=== PATIENT | female | born 1960 | race Caucasian/White ===

== ENCOUNTER 2019-11-18 16:25 | Emergency (ER) | payer MEDICARE, SELFPAY | END 2019-11-18 22:26 | disposition home or self-care (01) | PROVIDERS: Family Provider Family Medicine | DX: L03.116 Cellulitis of left lower limb (principal); I87.2 Venous insufficiency (chronic) (peripheral); R60.0 Localized edema; I10 Essential (primary) hypertension; E11.9 Type 2 diabetes mellitus without complications | CPT/HCPCS: 36415; 71045; 80053; 81001; 83605; 84484 ×2; 85025; 87040 ×2; 87086; 93005; 93971; 96365; 96375 ×2; 99284; J1940; J2270; J3490; J7050 ==

== ENCOUNTER 2019-11-26 11:00 | Inpatient (IN) | payer MEDICARE, SELFPAY ==
[2019-11-26] VITALS (12 sets, daily range): BP systolic 136–209; BP diastolic 48–86; PULSE 71–81; RESP 16–22; TEMP 36.6–36.8; O2SAT 94–98; BMI 55.3
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
[2019-11-26 11:48] LABS: Glucose Point of Care 96 mg/dL (70-110)
--- NOTE | 2019-11-26 12:01 | XR_ITS ---
WS: [id number] CHEST 2 VIEWS HISTORY: SOB COMPARISON: 11/18/2019 Lungs: Mild interstitial thickening throughout both both lungs. There is a new area of very subtle in crease in opacification in the RIGHT upper lobe. Ill-defined opacification measures 4.6 x 2.0 cm. Cardiac size: Mildly enlarged cardiac silhouette. Mediastinum/Aorta: Mild atherosclerosis aorta. Bones: Posterior thoracolumbar fusion hardware. Increase in thoracic kyphosis. XR/XR chest 2V* [id number] IMPRESSION: 1. Increasing subtle opacification in the RIGHT upper lobe. Suspect pneumonia or pneumonitis. Recommend follow-up to resolution. 2. Mild interstitial edema.
[2019-11-26 12:16] LABS: Basophils % 0.4 %; Eosinophils # 0.2 10^3/uL (0.0-0.8); Eosinophils % 2.3 %; Hematocrit 37.3 % (37.0-47.0); Hemoglobin 11.4 g/dL (11.5-15.3); Lymphocytes # 1.6 10^3/uL (0.8-4.8); Lymphocytes % 17.8 %; Mean Corpuscular HGB Conc 30.6 g/dL (30.0-36.0); Mean Corpuscular Hemoglobin 25.7 pg (28.0-34.0); Mean Platelet Volume 10.2 fL (7.4-10.4); Monocytes # 0.4 10^3/uL (0.2-0.9); Monocytes % 4.4 %; Neutrophils # 6.8 10^3/uL (1.8-7.7); Neutrophils % 74.8 %; Nucleated Red Blood Cells % 0 %; Platelet Count 254 10^3/cmm (130-400); Red Blood Count 4.44 10^6/uL (4.1-5.3); Red Cell Distribution Width 15.1 % (12.1-15.1); White Blood Count 9.1 10^3/uL (4.0-10.0)
[2019-11-26 12:42] LABS: Add Urine Microscopic? YES; Bilirubin Urine Neg (NEGATIVE); Blood Urine 2+ (Negative); Glucose Urine UA 4+ (Normal); Ketones Urine Negative (Negative); Leukocyte Esterase Urine Negative (Negative); Nitrate Urine Positive (Negative); Protein Urine 3+ (Negative); Specific Gravity, Urine 1.015 (1.005-1.030); Urine Appearance Hazy (CLEAR); Urine Color Yellow (Yellow); Urobilinogen Urine Norm (Negative); pH Urine 5 (5-7)
[2019-11-26 12:45] LABS: Bacteria Urine 4+; RBC Urine 0-4 /hpf (0-2); Squamous Epithelial Cell Urine 0-4 (0-5)
[2019-11-26 12:46] LABS: Add Urine Culture? Yes
[2019-11-26 12:49] LABS: Alanine Aminotransferase 15 U/L (0-33); Albumin Level 4.5 g/dL (3.5-5.2); Alkaline Phosphatase 169 IU/L (35-105); Anion Gap 16.4 (5-19); Aspartate Amino Transferase 14 U/L (0-32); Blood Urea Nitrogen 43 mg/dL (8-23); Calcium 10.7 mg/Dl (8.8-10.2); Carbon Dioxide 23 mmol/L (22-29); Chloride 103 mmol/L (98-107); Globulin 3.6 g/dL (1.3-4.6); Glomerular Filtration Rate 23.9 mL/min (90-130); Glucose 92 mg/dL (74-106); NT Pro B Type Natriuretic Pept 421 pg/mL (0-125); Potassium 5.4 mmol/L (3.5-5.1); Sodium 137 mmol/L (136-145); Total Bilirubin 0.2 mg/dL (0.15-1.2); Total Protein 8.1 g/dL (6.6-8.7)
[2019-11-26 13:07] LABS: Glucose Point of Care 58 mg/dL (70-110)
[2019-11-26] MEDS: morphine 4 mg/mL SDV 1 mL IVP (14:50)
[2019-11-26] MEDS: cefTRIAXone 2,000 MG in sodium chloride 0.9% (plus) 50 ML 100 MG IV (14:55)
[2019-11-26 14:59] LABS: Glucose Point of Care 151 mg/dL (70-110)
[2019-11-26] MEDS: FUROsemide 10 mg/mL SDV 4mL 40 MG IVP (15:32)
[2019-11-26] MEDS: sodium polystyrene sulfonate 15 gm/60 mL Btl PO (15:32)
--- NOTE | 2019-11-26 15:53 | CTR_ITS ---
PROCEDURE INFORMATION: Exam: CT Head Without Contrast Exam date and time: 11/26/2019 4:07 PM Age: 59 years old Clinical indication: Pain; Headache; Additional info: Headache, R/O bleed TECHNIQUE: Imaging protocol: Computed tomography of the head without contrast. Total DLP: 882.35 mGy-cm Radiation optimization: All CT scans at this facility use at least one of these dose optimization techniques: automated exposure control; mA and/or kV adjustment per patient size (includes targeted exams where dose is matched to clinical indication); or iterative reconstruction. COMPARISON: CT head wo con* [id number] 12/14/2016 6:37 PM FINDINGS: Brain: Normal. No hemorrhage. Unremarkable white matter. No mass effect. Ventricles: Normal. No ventriculomegaly. Bones/joints: Unremarkable. No acute fracture. Sinuses: Visualized sinuses are unremarkable. No fluid levels. Mastoid air cells: Visualized mastoid air cells are well aerated. Soft tissues: Unremarkable. Other findings: Examination is limited secondary to motion artifact. CT/CT head wo con* [id number] IMPRESSION: No acute intracranial findings. Radiation Dose CTDIVOL = (mGy): DLP = 882.35 (mGy-cm)
--- NOTE | 2019-11-26 16:06 | ED_ITS ---
HPI - General Adult General: Chief complaint: General Medical Stated complaint: high bp/multiple complaints Time Seen by Provider: 11/26/19 11:27 Source: patient and family History of Present Illness: Location: head, chest and lower extremity Severity scale (1-10): 10 Quality: sharp and constant Relieving factors: none Exacerbating factors: none PFSH ED PFSH: Statuses (acute, chronic, etc) shown below reflect problem list status as previously entered and may not be historically accurate Medical History (Updated 11/26/19 @ 15:30 by Qiana Trivedi MD, [facility] [place] Cellulitis (Acute) Chronic back pain (Acute) Diabetes (Acute) HTN (hypertension) (Acute) Hyperglycemia (Acute) Obesity (Acute) Renal failure (Acute) Thyroid disease (Acute) Surgical History (Updated 11/26/19 @ 12:44 by Svetlana Hartman) History of adenoidectomy (Acute) History of appendectomy (Acute) History of back surgery (Acute) History of cholecystectomy (Acute) History of tonsillectomy (Acute) Social History Smoking and tobacco status: never smoked Course Vital Signs: Vital signs: Vital Signs Temperature 98 F 11/26/19 11:14 Pulse Rate 79 11/26/19 15:44 Respiratory Rate 18 11/26/19 15:44 Blood Pressure 136/72 11/26/19 15:44 Pulse Oximetry 96 11/26/19 15:44 MDM - General Adult Lab Data: Labs: Lab Results 11/26/19 11/26/19 11/26/19 Range/Units 11:44 11:51 11:51 WBC 9.1 (4.0-10.0) 10^3/ uL RBC 4.44 (4.1-5.3) 10^6/u L Hgb 11.4 L (11.5-15.3) g/dL Hct 37.3 (37.0-47.0) % MCV 84.0 (81-99) fL MCH 25.7 L (28.0-34.0) pg MCHC 30.6 (30.0-36.0) g/dL RDW 15.1 (12.1-15.1) % Plt Count 254 (130-400) 10^3/c mm MPV 10.2 (7.4-10.4) fL Neut % (Auto) 74.8 % Lymph % (Auto) 17.8 % [place] % (Auto) 4.4 % Eos % (Auto) 2.3 % Baso % (Auto) 0.4 % Neut # (Auto) 6.8 (1.8-7.7) 10^3/u L Lymph # (Auto) 1.6 (0.8-4.8) 10^3/u L [place] # (Auto) 0.4 (0.2-0.9) 10^3/u L Eos # (Auto) 0.2 (0.0-0.8) 10^3/u L Baso # (Auto) 0.0 (0.0-0.1) 10^3/u L Nucleated RBC % (a uto) 0 % Nucleated RBCs # 0.0 /100WBC Sodium 137 (136-145) mmol/L Potassium 5.4 H (3.5-5.1) mmol/L Chloride 103 (98-107) mmol/L Carbon Dioxide 23 (22-29) mmol/L Anion Gap 16.4 (5-19) BUN 43 H (8-23) mg/dL Creatinine 2.1 H (0.5-0.9) mg/dL GFR Calculation 23.9 L (90-130) mL/min Glucose 92 (74-106) mg/dL POC Glucose 96 (70-110) mg/dL Calcium 10.7 H (8.8-10.2) mg/Dl Total Bilirubin 0.2 (0.15-1.2) mg/dL AST 14 (0-32) U/L ALT 15 (0-33) U/L Alkaline Phosphata se 169 H (35-105) IU/L NT-Pro-B Natriuret Pep 421 H (0-125) pg/mL Total Protein 8.1 (6.6-8.7) g/dL Albumin 4.5 (3.5-5.2) g/dL Globulin 3.6 (1.3-4.6) g/dL Urine Color (Yellow) Urine Appearance (CLEAR) Urine pH (5-7) Ur Specific Gravit y (1.005-1.030) Urine Protein (Negative) Urine Glucose (UA) (Normal) Urine Ketones (Negative) Urine Occult Blood (Negative) Urine Nitrate (Negative) Urine Bilirubin (NEGATIVE) Urine Urobilinogen (Negative) mg/dL Ur Leukocyte Staci ase (Negative) Urine RBC (0-2) /hpf Urine WBC (0-5) /hpf Ur Squamous Epith Cells (0-5) Urine Bacteria (NONE) 11/26/19 11/26/19 11/26/19 Range/Units 12:24 13:03 14:27 WBC (4.0-10.0) 10^3/ uL RBC (4.1-5.3) 10^6/u L Hgb (11.5-15.3) g/dL Hct (37.0-47.0) % MCV (81-99) fL MCH (28.0-34.0) pg MCHC (30.0-36.0) g/dL RDW (12.1-15.1) % Plt Count (130-400) 10^3/c mm MPV (7.4-10.4) fL Neut % (Auto) % Lymph % (Auto) % [place] % (Auto) % Eos % (Auto) % Baso % (Auto) % Neut # (Auto) (1.8-7.7) 10^3/u L Lymph # (Auto) (0.8-4.8) 10^3/u L [place] # (Auto) (0.2-0.9) 10^3/u L Eos # (Auto) (0.0-0.8) 10^3/u L Baso # (Auto) (0.0-0.1) 10^3/u L Nucleated RBC % (a uto) % Nucleated RBCs # /100WBC Sodium (136-145) mmol/L Potassium (3.5-5.1) mmol/L Chloride (98-107) mmol/L Carbon Dioxide (22-29) mmol/L Anion Gap (5-19) BUN (8-23) mg/dL Creatinine (0.5-0.9) mg/dL GFR Calculation (90-130) mL/min Glucose (74-106) mg/dL POC Glucose 58 151 (70-110) mg/dL Calcium (8.8-10.2) mg/Dl Total Bilirubin (0.15-1.2) mg/dL AST (0-32) U/L ALT (0-33) U/L Alkaline Phosphata se (35-105) IU/L NT-Pro-B Natriuret Pep (0-125) pg/mL Total Protein (6.6-8.7) g/dL Albumin (3.5-5.2) g/dL Globulin (1.3-4.6) g/dL Urine Color Yellow (Yellow) Urine Appearance Hazy A (CLEAR) Urine pH 5 (5-7) Ur Specific Gravit y 1.015 (1.005-1.030) Urine Protein 3+ H (Negative) Urine Glucose (UA) 4+ H (Normal) Urine Ketones Negative (Negative) Urine Occult Blood 2+ H (Negative) Urine Nitrate Positive H (Negative) Urine Bilirubin Neg (NEGATIVE) Urine Urobilinogen Norm (Negative) mg/dL Ur Leukocyte Staci ase Negative (Negative) Urine RBC 0-4 H (0-2) /hpf Urine WBC 5-10 H (0-5) /hpf Ur Squamous Epith Cells 0-4 H (0-5) Urine Bacteria 4+ H (NONE) Discharge Plan Discharge Patient Disposition: Placed in Observation Admit Provider: Jovanni Ramires Clinical Impression: Acute UTI, Acute hyperkalemia Pneumonia Qualifiers: Laterality: right Lung location: upper lobe of lung Renal failure Qualifiers: Renal failure chronicity: chronic Chronic kidney disease stage: stage 3 (moderate) Qualified Code(s): N18.3 - Chronic kidney disease, stage 3 (moderate) Diabetes Qualifiers: Diabetes mellitus type: type 2 Diabetes mellitus intermediate insulin use: with intermediate use Diabetes mellitus complication status: with hyperglycemia Qualified Code(s): E11.65 - Type 2 diabetes mellitus with hyperglycemia Discharge Date/Time: 11/26/19 15:49 Coding Level of Care Code 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
[2019-11-26 16:07] LABS: Blood Urea Nitrogen 43 mg/dL (8-23); Calcium 10.1 mg/Dl (8.8-10.2); Carbon Dioxide 18 mmol/L (22-29); Chloride 104 mmol/L (98-107); Glomerular Filtration Rate 23.9 mL/min (90-130); Glucose 171 mg/dL (74-106); Sodium 136 mmol/L (136-145)
--- NOTE | 2019-11-26 16:57 | PC.PHAR ---
Vancomycin dosing per pharmacy 1500mg q24h Patient: Floor: Age: 59 yo Serum creatinine: 2.1 mg/dL Height: 63.8 Inches Weight (kg): 146 IBW (kg): 54.24 Dosing wt(kg): 90.9 Estimated Creatinine clearance (ml/min): 40.4 CRCL method: Cockcroft and Gault using adjusted body weight Drug selected: Vancomycin Loading dose (mg): Vd (liters): 63.6 (factor used: 0.7 L/kg) Cameron (hr-1): 0.038 Half life (hrs): 18.24 CLvanco= 2.417 L/hr Recommended dose: 1500 mg Interval: 24 hrs Infusion time (hrs): 1 Predicted peak (mcg/mL): 38.7 Predicted trough (mcg/mL): 16.15 Adjusted body weight was selected for vancomycin dosing. To switch back, select the total body weight option above. Recommendations: Give Vancomycin 1500 mg q 24 hrs with an expected Cpeak of 38.7 mcg/ml and an expected Ctrough of 16.15 mcg/ml
[2019-11-26] MEDS: enoxaparin 30 mg/0.3 mL Syringe SUBCUT (17:07)
[2019-11-26] MEDS: metoprolol tartrate 25 mg Tablet PO (17:07)
[2019-11-26] MEDS: FUROsemide 10 mg/mL SDV 2mL 20 MG IVP (17:07)
[2019-11-26] MEDS: metOLazone 5 MG Tablet PO (17:07)
[2019-11-26 17:10] LABS: Glucose Point of Care 246 mg/dL (70-110)
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
[2019-11-26] MEDS: dextrose 50% syringe 50 mL IVP (17:43)
--- NOTE | 2019-11-26 18:04 | CTR_ITS ---
PROCEDURE INFORMATION: Exam: CT Lumbar Spine Without Contrast Exam date and time: 11/26/2019 8:37 PM Age: 59 years old Clinical indication: Other: Possible infection; Prior surgery; Surgery date: 6+ months; Additional info: R/O infection TECHNIQUE: Imaging protocol: Computed tomography images of the lumbar spine without contrast. Total DLP: 2369.82 mGy-cm Radiation optimization: All CT scans at this facility use at least one of these dose optimization techniques: automated exposure control; mA and/or kV adjustment per patient size (includes targeted exams where dose is matched to clinical indication); or iterative reconstruction. COMPARISON: [place] [id number] 12/14/2016 6:47 PM FINDINGS: Vertebrae: Dextroscoliosis. Moderate to severe multilevel spine degenerative changes including degenerative disc disease, spondylosis and facet degenerative changes. Discs/Spinal canal/Neural foramina: Moderate L3-L4 central spinal stenosis. Mild L2-L3 central spinal stenosis. Soft tissues: Unremarkable. CT/CT lumbar spine wo con* [id number] IMPRESSION: No obvious abscess or osteomyelitis. Radiation Dose CTDIVOL = (mGy): DLP = 2369.82 (mGy-cm)
--- NOTE | 2019-11-26 18:04 | CTR_ITS ---
PROCEDURE INFORMATION: Exam: CT Thoracic Spine Without Contrast Exam date and time: 11/26/2019 8:37 PM Age: 59 years old Clinical indication: Other: Possible infection; Prior surgery; Surgery date: 6+ months; Additional info: R/O hardware infection/abscess TECHNIQUE: Imaging protocol: Computed tomography images of the thoracic spine without contrast. Total DLP: 2518.94 mGy-cm Radiation optimization: All CT scans at this facility use at least one of these dose optimization techniques: automated exposure control; mA and/or kV adjustment per patient size (includes targeted exams where dose is matched to clinical indication); or iterative reconstruction. COMPARISON: [place] Thor[place]* [id number] 12/14/2016 6:43 PM FINDINGS: Vertebrae: Stable postoperative changes over the thoracic spine with T8-T11 metallic fixation, bilateral posterior pedicular screws, vertical and horizontal stabilization bars, multilevel laminectomies and metallic artifact which obscures anatomic detail. Moderate thoracic spondylosis. The left T8 posterior pedicular screws is lateral to the pedicle and contiguous with the lateral margin of the vertebral body. Discs/Spinal canal/Neural foramina: No spinal stenosis. Soft tissues: No obvious soft tissue abscess or osteomyelitis. CT/CT thoracic spin wo con* [id number] IMPRESSION: 1. Stable postoperative changes over the thoracic spine with T8-T11 metallic fixation, bilateral posterior pedicular screws, vertical and horizontal stabilization bars, multilevel laminectomies and metallic artifact which obscures anatomic detail. 2. Moderate thoracic spondylosis. 3. The left T8 posterior pedicular screws is lateral to the pedicle and contiguous with the lateral margin of the vertebral body. 4. No obvious soft tissue abscess or osteomyelitis. Radiation Dose CTDIVOL = (mGy): DLP = 2518.94 (mGy-cm)
--- NOTE | 2019-11-26 20:01 | PC.NURSE ---
DR KOEHLER AT PT BEDSIDE. VERBAL ORDERS FOR 1GRAM OF TYLENOL Q8H AND TO CHANGE HYDROCODONE TO Q6H.
[2019-11-26] MEDS: ropinirole 1 mg Tablet 3 MG PO (20:14)
[2019-11-26] MEDS: acetaminophen 500 mg Tablet 1000 MG PO (20:14)
[2019-11-26] MEDS: oxybutynin 5 mg Tablet PO (20:15)
[2019-11-26 20:42] LABS: Influenza A by IFA Negative (Negative)
[2019-11-26 20:43] LABS: Influenza B by IFA Negative (Negative)
[2019-11-26 21:18] LABS: Glucose Point of Care 322 mg/dL (70-110)
[2019-11-26] MEDS: insulin glargine 100 units/1 mL 50 UNIT SUBCUT (21:20)
[2019-11-26] MEDS: piperacillin-tazobactam 3.375 GM in sodium chloride 0.9% (plus) 50 ML IV (21:45)
[2019-11-26] MEDS: HYDROcodone-acetaminophen 5-325 mg Tablet 1 TAB PO (21:47)
[2019-11-27] VITALS (12 sets, daily range): BP systolic 136–206; BP diastolic 65–81; PULSE 65–78; RESP 16–20; TEMP 36.1–36.7; O2SAT 92–99
[2019-11-27] MEDS: piperacillin-tazobactam 3.375 GM in sodium chloride 0.9% (plus) 50 ML IV ×2 (05:03→12:43)
[2019-11-27] MEDS: acetaminophen 500 mg Tablet 1000 MG PO (05:04)
[2019-11-27] MEDS: FUROsemide 10 mg/mL SDV 10mL 60 MG IVP ×2 (05:04→18:28)
[2019-11-27 05:58] LABS: Basophils % 0.4 %; Eosinophils # 0.2 10^3/uL (0.0-0.8); Eosinophils % 3.1 %; Lymphocytes # 1.6 10^3/uL (0.8-4.8); Lymphocytes % 22.5 %; Mean Corpuscular HGB Conc 30.3 g/dL (30.0-36.0); Mean Corpuscular Volume 85.7 fL (81-99); Mean Platelet Volume 10.4 fL (7.4-10.4); Monocytes # 0.5 10^3/uL (0.2-0.9); Neutrophils # 4.7 10^3/uL (1.8-7.7); Neutrophils % 66.7 %; Nucleated Red Blood Cells % 0 %; Platelet Count 211 10^3/cmm (130-400); Red Blood Count 3.85 10^6/uL (4.1-5.3); Red Cell Distribution Width 15.5 % (12.1-15.1)
[2019-11-27 06:16] LABS: Alanine Aminotransferase 20 U/L (0-33); Albumin Level 3.6 g/dL (3.5-5.2); Alkaline Phosphatase 157 IU/L (35-105); Anion Gap 16.2 (5-19); Aspartate Amino Transferase 25 U/L (0-32); Blood Urea Nitrogen 41 mg/dL (8-23); Carbon Dioxide 24 mmol/L (22-29); Chloride 103 mmol/L (98-107); Globulin 3.1 g/dL (1.3-4.6); Glomerular Filtration Rate 22.7 mL/min (90-130); Glucose 216 mg/dL (74-106); Magnesium 2.2 mg/dL (1.7-2.3); Phosphorus 4.9 mg/dL (2.5-4.5); Potassium 5.2 mmol/L (3.5-5.1); Sodium 138 mmol/L (136-145); Total Bilirubin 0.2 mg/dL (0.15-1.2); Total Protein 6.7 g/dL (6.6-8.7); Vancomycin Random 10.8 ug/mL (20.0-40.0)
[2019-11-27 06:21] LABS: Estmated Average Glucose 260; Hemoglobin A1C 10.7 % (4.0-6.0)
[2019-11-27 06:56] LABS: Glucose Point of Care 192 mg/dL (70-110)
--- NOTE | 2019-11-27 07:00 | USCV_ITS ---
Stan Berenice Age: 59 Gender: F : 1960 Exam Date: 11/27/2019 06:35 Ordering Phys: Jovanni Ramires MD Technologist: Ivy Bajwa Exam Location: [facility] [place] Indication: R/O DVT HISTORY: Leg pain. PROCEDURES: Examined bilaterally were the greater saphenous, common femoral, femoral, profunda, popliteal, posterior tibial veins, and peroneal trunk.. FINDINGS: All veins examined appear free of thrombus. No filling defects on color Doppler flow analysis. Vein flow and caliber vary with respiration. Increase in venous flow with augmentation. All veins appear compressible. CONCLUSIONS No evidence of right lower extremity DVT. No evidence of left lower extremity DVT. Ovi Ahn MD (Electronically Signed) Final Date: 27 November 2019 13:18 S
--- NOTE | 2019-11-27 07:00 | USCV_ITS ---
Berenice Pierce Age: 59 Gender: F : 1960 Exam Date: 11/27/2019 06:12 Ordering Phys: Jovanni Ramires MD Technologist: Ivy Bajwa Exam Location: [facility] [place] Indication: HX OF PHTN BP: 164 / 67 HR: 70 Rhythm: Sinus Technical Quality: Very technically difficult study MEASUREMENTS (Male / Female) Normal Values 2D ECHO LV Diastolic Diameter PLAX 4.4 cm 4.2 - 5.9 / 3.9 - 5.3 cm LV Systolic Diameter PLAX 2.8 cm IVS Diastolic Thickness 1.0 cm 0.6 - 1.0 / 0.6 - 0.9 cm IVS Systolic Thickness 1.8 cm LVPW Diastolic Thickness 1.1 cm 0.6 - 1.0 / 0.6 - 0.9 cm LVPW Systolic Thickness 1.7 cm LVOT Diameter 2.0 cm LV Ejection Fraction 2D Teich 66.6 % LA Diameter 4.7 cm Aorta at Sinotubular Diameter 2.8 cm M-MODE LV Diastolic Diameter MM 5.3 cm 4.2 - 5.9 / 3.9 - 5.3 cm LV Systolic Diameter MM 2.9 cm LV Ejection Fraction MM Teich 75.9 % IVS Diastolic Thickness MM 1.1 cm 0.6 - 1.0 / 0.6 - 0.9 cm IVS Systolic Thickness MM 1.9 cm LVPW Diastolic Thickness MM 1.4 cm 0.6 - 1.0 / 0.6 - 0.9 cm LVPW Systolic Thickness MM 1.9 cm Aortic Annulus Diameter 2.9 cm LA Ao Ratio MM 1.6 MV E Point Septal Separation 0.3 cm DOPPLER AV Peak Velocity 142.0 cm/s MV Area PHT 3.5 cm squared Mitral E to A Ratio 0.9 MV E' Velocity 8.0 cm/s Mitral E to MV E' Ratio 14.6 Mitral E to LV E' Lateral Ratio 13.2 Mitral E to LV E' Septal Ratio 16.8 TV Peak E Velocity 53.0 cm/s Right Atrial Pressure 3.0 mmHg PV Peak Velocity 63.0 cm/s RV Acceleration Time 0.1 s RV Ejection Time 0.2 s RV AcT/ET 0.5 FINDINGS Left Ventricle Left ventricular cavity not well visualized. Probably normal left ventricular systolic function. This study is inadequate for estimation of regional wall motion abnormality. Right Ventricle Right ventricle not well visualized. Probably normal right ventricular systolic function. Tricuspid valve regurgitant jet is inadequate for estimation of right ventricular systolic pressure. Right Atrium Right atrium not well visualized. Right atrial pressure estimated at 3 mmHg. Normal-sized inferior vena cava. Left Atrium Left atrium not well visualized. Mitral Valve Mitral valve not well visualized. Aortic Valve Aortic valve not well visualized. Probably tricuspid aortic valve. Tricuspid Valve Tricuspid valve not well visualized. Pulmonic Valve Pulmonic valve not well visualized. Trace pulmonary valve regurgitation. Pericardium No pericardial effusion. Aorta Normal-sized aortic root. CONCLUSIONS 1. This is a technically very difficult study. 2. Probably normal left ventricular systolic function. This study is inadequate for estimation of regional wall motion abnormality. 3. Repeat study with echo contrast is recommended. 4. Direct comparison to previous study dated 09/16/2017 is not possible given technical differences in the study. Genevieve Erazo MD (Electronically Signed) Final Date: 27 November 2019 16:18 S
[2019-11-27] MEDS: duloxetine 60 mg Capsule PO (09:16)
[2019-11-27] MEDS: oxybutynin 5 mg Tablet PO ×2 (09:16→15:52)
[2019-11-27] MEDS: ropinirole 1 mg Tablet 3 MG PO ×2 (09:16→15:49)
[2019-11-27] MEDS: levothyroxine 25 mcg Tablet PO (09:17)
[2019-11-27] MEDS: metoprolol tartrate 25 mg Tablet PO ×2 (09:17→18:28)
[2019-11-27] MEDS: metOLazone 5 MG Tablet PO (09:30)
[2019-11-27] MEDS: calcitriol 0.25 mcg Capsule PO (09:30)
[2019-11-27] MEDS: HYDROcodone-acetaminophen 5-325 mg Tablet 1 TAB PO ×2 (11:36→18:30)
[2019-11-27 12:01] LABS: Glucose Point of Care 241 mg/dL (70-110)
--- NOTE | 2019-11-27 14:41 | PC.CHAP ---
Pastoral Care Encounter/Spiritual Assessment Type of Contact [] Declined director clinical data visit [] Patient/Family/Request visit [] Outpatient visit [x] Follow-up visit [] Physician referral [] Code/Alert [] Routine visit [] Staff referral [] Actively dying [] Patient sleeping [] Family support [] [] Out of room [] Palliative care [] [x] Receiving care in room [] Pre-surgical visit [] Trauma [] Long length of stay [] ICU visit [] Other: Relational/Emotional Strength [] Patient feels connected with others/family/visitors/staff [] Distress [] Loneliness/isolation [] Abandonment Spirituality of Patient [] Person of Gwen [] Attends Jainism of their Gwen [] Believes in Prayer [] Reads Bible or Worship materials [] There are Spiritual issues to be addressed [place] [employer] Interventions [] Prayer [] Active listening [] Non-anxious presence [] Spiritual/emotional support [] Crisis/trauma care [] Spiritual counseling [] Bereavement support [] Provided bereavement packet [] Provided Bible/devotional materials [] Provided toy/stuffed animal, coloring book to patient or family member [] Completed spiritual assessment [] Provided Communion [] Anointing/[place] [] Salvation [] Other: Impact on Illness or Injury [] Angry [] Fearful [] Anxious [] Often cries [] Exhaustion [] Unable to work [] Unable to attend sikh [] Unable to walk/stand [] Unable to read [] Unable to drive [] Unable to eat/drink [] Unable to sleep [] Unable to be with family [] Other: Summary receiveing care in room follow up vannessa serrano Time spent with patient
[2019-11-27] MEDS: hyDRALAzine 25 mg Tablet PO (15:52)
[2019-11-27] MEDS: diphenhydrAMINE 50 mg Capsule PO (16:22)
[2019-11-27 16:50] LABS: Glucose Point of Care 187 mg/dL (70-110)
--- NOTE | 2019-11-27 16:51 | PC.PT ---
pt was evaluated this am and in terms of her functional abilities did not require further PT, but she was referred for treatment of her LE edema
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
[2019-11-27] MEDS: enoxaparin 30 mg/0.3 mL Syringe SUBCUT (18:42)
--- NOTE | 2019-11-27 19:11 | PC.NURSE ---
Report to [facility] Report called to KWAKU Harding at [facility].
--- NOTE | 2019-11-29 09:20 | PC.SOCIAL ---
Called with micro results on urine culture for ECOLI ESBL. Patient was transferred to [facility] in [place]. 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 Successfull transmission verification received.
== END 2019-11-27 20:19 | disposition short-term general hospital (02) | DRG 292 ==
LOC: ER 15:30 → MEDSURG 15:48
PROVIDERS: Admitting Provider Student in an Organized Health Care Education/Training Program; Emergency Provider Family Medicine; Family Provider Family Medicine; Visit Provider Student in an Organized Health Care Education/Training Program
DX: I13.0 Hypertensive heart and chronic kidney disease with heart failure and stage 1 through stage 4 chronic kidney disease, or unspecified chronic kidney disease (principal); I50.30 Unspecified diastolic (congestive) heart failure; N39.0 Urinary tract infection, site not specified; L03.90 Cellulitis, unspecified; R78.81 Bacteremia; Z68.43 Body mass index [BMI] 50.0-59.9, adult; J96.11 Chronic respiratory failure with hypoxia; N18.3 Chronic kidney disease, stage 3 (moderate); Z79.4 Long term (current) use of insulin; E11.22 Type 2 diabetes mellitus with diabetic chronic kidney disease; E11.65 Type 2 diabetes mellitus with hyperglycemia; E87.5 Hyperkalemia; G47.33 Obstructive sleep apnea (adult) (pediatric); E66.01 Morbid (severe) obesity due to excess calories; G89.29 Other chronic pain; M54.9 Dorsalgia, unspecified
CPT/HCPCS: 36415; 36416; 70450; 71046; 72128; 72131; 80048; 80053; 80202; 81003; 82962; 83036; 83605; 83735; 83880; 84100; 84145; 85025; 87040; 87077; 87086; 87186; 87641; 87804; 93306; 93970; 94640; 96372; 96374; 96375; 97161; 97530; 99282; G0378; J0696; J1650; J1815; J1940; J2270; J2543; J3370; J7050; J7611; Q0163

== ENCOUNTER 2020-04-17 09:09 | Outpatient (CLI) | payer MEDICARE, SELFPAY ==
--- NOTE | 2020-04-17 09:24 | XR_ITS ---
WS: [id number] CERVICAL SPINE TECHNIQUE: 3 views of the cervical spine CLINICAL INFORMATION: FALL INITIAL ENCOUNTER COMPARISON: None. FINDINGS: Straightening of the normal cervical lordosis. Anterior hypertrophic spurring at C5-C6. Normal C1-C2 articulation. Normal prevertebral soft tissues. Mild cervical curve convex left. Normal dens. XR/XR cervical spine 3V* [id number] IMPRESSION: Mild spondylitic changes. No acute fractures.
--- NOTE | 2020-04-17 09:24 | XR_ITS ---
WS: [id number] THORACIC SPINE TECHNIQUE: 3 views of the thoracic spine CLINICAL INFORMATION: FALL INITIAL ENCOUNTER COMPARISON: None. FINDINGS: Postoperative changes mid and lower thoracic spine with pedicle screw fixation and interconnecting ro ds. Hardware appears intact. Moderate thoracic kyphosis. Chronic anterior wedging in the mid and lowe r thoracic spine with ankylosis. No acute appearing thoracic compression fractures. XR/XR thoracic spine 3V* [id number] IMPRESSION: No acute appearing thoracic compression fractures
--- NOTE | 2020-04-17 09:24 | XR_ITS ---
WS: [id number] LUMBAR SPINE TECHNIQUE: 3 views of the lumbar spine CLINICAL INFORMATION: FALL INITIAL ENCOUNTER COMPARISON: April 03, 2018 FINDINGS: Five [id number] lumbar vertebral bodies. Mild lumbar curve convex right. Cholecystectomy clips. Prior postoperative changes pedicle screw fixation lower thoracic spine partially visualized. Slight retrolisthesis L2 on L3. Slight anterolisthesis L4 on L5 measuring 4.3 mm. Moderate to advanced facet arthropathy L5-S1. Ankylosis lower thoracic spine. Osteopenia. XR/XR lumbar spine 2-3V* [id number] IMPRESSION: 1. Stable grade 1 anterolisthesis L4 on L5. 2. Slight retrolisthesis L2 on L3. 3. No acute appearing compression fractures. 4. Prior postoperative changes lower thoracic spine.
== END 2020-04-17 09:10 | disposition home or self-care (01) ==
PROVIDERS: PCP Family Medicine; Visit Provider Family Medicine
DX: M54.9 Dorsalgia, unspecified (principal); W18.30XA Fall on same level, unspecified, initial encounter
CPT/HCPCS: 72040; 72072; 72100

== ENCOUNTER 2020-07-22 08:41 | Outpatient (CLI) | payer MEDICARE, SELFPAY | END 2020-07-22 08:42 | disposition home or self-care (01) | LOC: WOUND 08:42 | PROVIDERS: PCP Family Medicine; Visit Provider Emergency Medicine | DX: E11.621 Type 2 diabetes mellitus with foot ulcer (principal); L97.512 Non-pressure chronic ulcer of other part of right foot with fat layer exposed; Z89.421 Acquired absence of other right toe(s) | CPT/HCPCS: 11042; G0463; L3260 ==

== ENCOUNTER 2020-07-26 23:25 | Emergency (ER) | payer MEDICARE, SELFPAY ==
[2020-07-26 23:26] VITALS: BP 173/65; PULSE 77; RESP 18; TEMP 36.7; O2SAT 98; BMI 50.6
--- NOTE | 2020-07-26 23:38 | XRR_ITS ---
PROCEDURE INFORMATION: Exam: XR Cervical Spine, 2 or 3 Views Exam date and time: 07/27/2020 12:33 AM Age: 60 years old Clinical indication: Injury or trauma; Fall; Initial encounter; Abrasion TECHNIQUE: Imaging protocol: XR of the cervical spine, 2 or 3 views. COMPARISON: CR XR cervical spine 3V* [id number] 04/17/2020 9:31 AM FINDINGS: Limitations: Study is limited secondary to body habitus obscuring osseous detail from C4 caudally on the lateral view. Vertebrae: Normal. No acute fracture. Normal alignment. Soft tissues: Unremarkable. XR/XR cervical spine 3V* [id number] IMPRESSION: There are no acute osseous findings.
--- NOTE | 2020-07-26 23:38 | XRR_ITS ---
PROCEDURE INFORMATION: Exam: XR Chest, 1 View Exam date and time: 07/27/2020 12:05 AM Age: 60 years old Clinical indication: Injury or trauma; Fall; Initial encounter; Abrasion; Prior surgery; Surgery type: Dialysis port TECHNIQUE: Imaging protocol: XR of the chest Views: 1 view. COMPARISON: CR XR chest 2V* [id number] 11/26/2019 1:14 PM FINDINGS: Tubes, catheters and devices: A dialysis catheter is placed via the right internal jugular vein with its tip at the level of the right atrium. Pedicle screws and posterior rods are seen extending from T10 caudally. Lungs: There is indistinctness of the pulmonary vasculature. There are interstitial markings seen diffusely bilaterally , findings likely representing pulmonary edema. Patchy opacities are seen in the right upper lobe and left lower lobes likely representing atelectasis. Superimposed infiltrates and pneumonia cannot be entirely excluded. Pleural space: Unremarkable. No pleural effusion. No pneumothorax. Heart/Mediastinum: Unremarkable. No cardiomegaly. Bones/joints: Unremarkable. XR/XR chest 1V portable [id number] IMPRESSION: 1. Findings suggesting pulmonary edema. 2. The patchy opacities in the right upper lobe left lower lobes likely represents atelectasis. Superimposed infiltrates and pneumonia cannot be entirely excluded.
--- NOTE | 2020-07-26 23:38 | XRR_ITS ---
PROCEDURE INFORMATION: Exam: XR Left Hand Exam date and time: 07/27/2020 12:13 AM Age: 60 years old Clinical indication: Injury or trauma; Fall; Initial encounter; Laceration; Hand; Left TECHNIQUE: Imaging protocol: XR Left hand. Views: 3 or more views. COMPARISON: No relevant prior studies available. FINDINGS: Bones/joints: Normal. Soft tissues: Normal. XR/XR hand LT min 3V* [id number] IMPRESSION: No acute findings.
--- NOTE | 2020-07-26 23:38 | XRR_ITS ---
PROCEDURE INFORMATION: Exam: XR Left Forearm Exam date and time: 07/27/2020 12:13 AM Age: 60 years old Clinical indication: Injury or trauma; Fall; Initial encounter; Laceration; Arm, lower; Left; Prior surgery TECHNIQUE: Imaging protocol: XR Left forearm. Views: 2 views. COMPARISON: No relevant prior studies available. FINDINGS: Bones/joints: Normal. Soft tissues: Normal. Vasculature: Vascular clips are seen within the antecubital fossa. XR/XR forearm LT 2V [id number] IMPRESSION: 1. There are no acute osseous findings. 2. Vascular clips are seen within the cubital fossa.
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
[2020-07-26] MEDS: HYDROcodone-acetaminophen 7.5-325 mg Tablet 1 TAB PO (23:58)
--- NOTE | 2020-07-27 00:07 | XRR_ITS ---
PROCEDURE INFORMATION: Exam: XR Sternum Exam date and time: 07/27/2020 12:49 AM Age: 60 years old Clinical indication: Injury or trauma; Fall; Initial encounter; Prior surgery; Surgery date: 6+ months; Surgery type: Dialysis port TECHNIQUE: Imaging protocol: XR sternum. Views: 2 or more views. COMPARISON: CR XR chest 1V portable [id number] 07/27/2020 12:02 AM FINDINGS: Tubes, catheters and devices: A dialysis catheter is placed via the right internal jugular vein with its tip at the level of the right atrium. Bones/joints: Normal. Lungs: There is mild indistinctness of the pulmonary vasculature. There are increased interstitial markings seen bilaterally, findings that likely represent pulmonary edema. Superimposed interstitial pneumonitis cannot be entirely excluded. Soft tissues: Normal. Other findings: Pedicle screws and rods extend from T10 caudally. XR/XR sternum min 2V [id number] IMPRESSION: Indistinctness of the pulmonary vasculature and increased interstitial markings in the hemithoraces bilaterally, findings that likely represents pulmonary edema. Superimposed interstitial pneumonitis cannot be entirely excluded.
[2020-07-27 01:34] VITALS: BP 159/41; PULSE 80; RESP 18; O2SAT 2
== END 2020-07-27 02:01 | disposition home or self-care (01) ==
PROVIDERS: Emergency Provider Nurse Practitioner Family; PCP Family Medicine
DX: M54.2 Cervicalgia (principal); R07.9 Chest pain, unspecified; Z79.4 Long term (current) use of insulin; E11.9 Type 2 diabetes mellitus without complications; I11.0 Hypertensive heart disease with heart failure; I50.30 Unspecified diastolic (congestive) heart failure
CPT/HCPCS: 12345; 71045; 71120; 72040; 72072; 73090; 73130; 99281; 99283

== ENCOUNTER → 2020-07-29 08:44 | Outpatient (BNVA) | payer MEDICARE, SELFPAY | PROVIDERS: PCP Family Medicine; Referring Provider Family Medicine; Visit Provider Anesthesiology Pain Medicine | DX: G89.29 Other chronic pain (principal); M48.062 Spinal stenosis, lumbar region with neurogenic claudication; M51.36 Other intervertebral disc degeneration, lumbar region; M54.9 Dorsalgia, unspecified; M43.24 Fusion of spine, thoracic region; M54.2 Cervicalgia; M96.1 Postlaminectomy syndrome, not elsewhere classified; M48.10 Ankylosing hyperostosis [Forestier], site unspecified; R78.81 Bacteremia; N18.3 Chronic kidney disease, stage 3 (moderate); Z79.891 Long term (current) use of opiate analgesic | CPT/HCPCS: 99205 ==

== ENCOUNTER 2020-07-29 13:28 | Outpatient (CLI) | payer MEDICARE, SELFPAY | END 2020-07-29 13:29 | disposition home or self-care (01) | LOC: WOUND 13:29 | PROVIDERS: PCP Family Medicine; Visit Provider Emergency Medicine | DX: E11.621 Type 2 diabetes mellitus with foot ulcer (principal); L97.511 Non-pressure chronic ulcer of other part of right foot limited to breakdown of skin; L98.492 Non-pressure chronic ulcer of skin of other sites with fat layer exposed; Z89.421 Acquired absence of other right toe(s) | CPT/HCPCS: 11042 ==

== ENCOUNTER 2020-07-31 11:46 | Outpatient (CLI) | payer MEDICARE, SELFPAY ==
[2020-07-31 12:38] LABS: Basophils % 0.6 %; Eosinophils # 0.6 10^3/uL (0.0-0.8); Eosinophils % 8.4 %; Hemoglobin 9.4 g/dL (11.5-15.3); Lymphocytes # 1.4 10^3/uL (0.8-4.8); Lymphocytes % 21.4 %; Mean Corpuscular HGB Conc 29.4 g/dL (30.0-36.0); Mean Corpuscular Hemoglobin 26.6 pg (28.0-34.0); Mean Corpuscular Volume 90.4 fL (81-99); Mean Platelet Volume 10.5 fL (7.4-10.4); Monocytes # 0.4 10^3/uL (0.2-0.9); Monocytes % 5.8 %; Neutrophils # 4.23 10^3/uL (1.8-7.7); Neutrophils % 63.4 %; Nucleated Red Blood Cells % 0 %; Platelet Count 216 10^3/cmm (130-400); Red Blood Count 3.54 10^6/uL (4.1-5.3); Red Cell Distribution Width 18.6 % (12.1-15.1); White Blood Count 6.7 10^3/uL (4.0-10.0)
[2020-07-31 13:04] LABS: Alanine Aminotransferase 12 U/L (0-33); Albumin Level 3.9 g/dL (3.5-5.2); Alkaline Phosphatase 221 IU/L (35-105); Anion Gap 16.4 (5-19); Aspartate Amino Transferase 14 U/L (0-32); Blood Urea Nitrogen 47 mg/dL (8-23); Calcium 8.4 mg/dL (8.5-10.5); Carbon Dioxide 28 mmol/L (22-29); Chloride 99 mmol/L (98-107); Creatine Phosphokinase 68 U/L (26-192); Globulin 3.8 g/dL (1.3-4.6); Glomerular Filtration Rate 20.5 mL/min (90-130); Glucose 79 mg/dL (65-115); Osmolality Calculated 283 mOsm/kg (285-295); Potassium 5.4 mmol/L (3.5-5.1); Sodium 138 mmol/L (136-145); Total Bilirubin 0.3 mg/dL (0.15-1.2); Total Protein 7.7 g/dL (6.6-8.7)
== END 2020-07-31 11:47 | disposition home or self-care (01) ==
LOC: LAB 11:51
PROVIDERS: PCP Family Medicine; Visit Provider Internal Medicine Infectious Disease
DX: A49.02 Methicillin resistant Staphylococcus aureus infection, unspecified site (principal); E11.621 Type 2 diabetes mellitus with foot ulcer; Z79.899 Other long term (current) drug therapy
CPT/HCPCS: 80053; 82550; 85025; 86140

== ENCOUNTER 2020-08-05 08:35 | Outpatient (CLI) | payer MEDICARE, SELFPAY | END 2020-08-05 08:36 | disposition home or self-care (01) | LOC: WOUND 08:37 | PROVIDERS: PCP Family Medicine; Visit Provider Emergency Medicine | DX: E11.621 Type 2 diabetes mellitus with foot ulcer (principal); L97.512 Non-pressure chronic ulcer of other part of right foot with fat layer exposed; S41.112A Laceration without foreign body of left upper arm, initial encounter; X58.XXXA Exposure to other specified factors, initial encounter | CPT/HCPCS: 11042 ==

== ENCOUNTER 2020-08-12 08:04 | Outpatient (CLI) | payer MEDICARE, SELFPAY | END 2020-08-12 08:05 | disposition home or self-care (01) | LOC: WOUND 08:05 | PROVIDERS: PCP Family Medicine; Visit Provider Nurse Practitioner Family | DX: E11.621 Type 2 diabetes mellitus with foot ulcer (principal); L97.512 Non-pressure chronic ulcer of other part of right foot with fat layer exposed; Z89.421 Acquired absence of other right toe(s) | CPT/HCPCS: 11042 ==

== ENCOUNTER 2020-08-19 08:07 | Outpatient (CLI) | payer MEDICARE, SELFPAY | END 2020-08-19 08:08 | disposition home or self-care (01) | LOC: WOUND 08:08 | PROVIDERS: PCP Family Medicine; Visit Provider Nurse Practitioner Family | DX: E11.621 Type 2 diabetes mellitus with foot ulcer (principal); L97.512 Non-pressure chronic ulcer of other part of right foot with fat layer exposed; Z89.421 Acquired absence of other right toe(s) | CPT/HCPCS: 99214 ==

== ENCOUNTER 2020-08-26 10:20 | Outpatient (CLI) | payer MEDICARE, SELFPAY | END 2020-08-26 10:21 | disposition home or self-care (01) | LOC: WOUND 10:34 | PROVIDERS: PCP Family Medicine; Visit Provider Surgery | DX: E11.621 Type 2 diabetes mellitus with foot ulcer (principal); L97.512 Non-pressure chronic ulcer of other part of right foot with fat layer exposed; Z89.421 Acquired absence of other right toe(s) | CPT/HCPCS: G0463 ==

== ENCOUNTER 2020-08-26 21:10 | Emergency (ER) | payer MEDICARE, SELFPAY ==
[2020-08-26 21:10] VITALS: BP 196/96; PULSE 95; RESP 18; O2SAT 97
[2020-08-26 21:15] VITALS: BP 192/104; PULSE 89; RESP 18; TEMP 36.1; O2SAT 97; BMI 51.1
[2020-08-26] MEDS: LORazepam 2 mg/mL INJ 1 mL 1 MG IVP (21:15)
--- NOTE | 2020-08-26 21:28 | W.ED.HA ---
HPI - Headache General: Chief Complaint: Headache Stated Complaint: MIGRAINE X 4 DAYS Time Seen by Provider: 08/26/20 21:20 Source: patient Mode of arrival: wheelchair Limitations: no limitations History of Present Illness: HPI Narrative: Mrs. Pierce is a very nice 60-year-old female who comes in complaining of a migraine. She states this migraine is been present for the past 4 days. States is been constant but waxing and waning in intensity. She has had headaches last this long before and has had worse headaches in the past but she states she is tired of the headache and wants to come in to get help. She states she is out of her typical abortive migraine medication. She has photophobia and nausea but has not vomited. She denies any fevers or chills. She denies any neck pain or stiffness. She said her headache was gradual in onset over the course of several hours and not a sudden onset thunderclap type headache. The patient states is been sometime since she is had to come to the ER for headache relief but she has had to do this in the past. Other than her headache she denies any other complaints. Associated symptoms: Deny chest pain, confusion, diaphoresis, fever(s), lightheadedness, malaise, pre-syncope, rash, syncope or vomiting Review of Systems Const: Denies: fever(s), chills, body aches, fatigue, malaise or diaphoresis Eyes: Denies: change in vision, blurry vision, photophobia, eye discomfort, eye discharge, eye redness or yellow eyes ENMT: Denies: throat pain, odynophagia, hoarseness, swelling of lips/tongue, ear or mastoid pain, ear discharge, change in hearing or nasal discharge Card: Denies: chest pain, palpitations, irregular heart rhythm, edema, lightheadedness, syncope, pre-syncope, dyspnea on exertion or orthopnea Resp: Denies: dyspnea, productive cough, non-productive cough, wheezing, hemoptysis or chest congestion GI: Denies: abdominal pain, vomiting, hematemesis, coffee ground emesis, heartburn, diarrhea, constipation, GI cramping, hematochezia or melena : Denies: flank pain, dysuria, urinary frequency, urinary urgency or hematuria Musc: Denies: neck pain, back pain, extremity pain, extremity swelling, joint pain, joint swelling, joint redness, joint warmth or joint stiffness Skin/Breast: Denies: rash, pruritus, erythema, skin pain or skin tenderness Neuro: Denies: numbness in extremities, weakness in extremities, sensory changes, lack of coordination, difficulty walking, dizziness, vertigo, confusion, Slurred speech present or seizure-like activity Shawn/Lymph: Denies: easy bruising, easy bleeding, petechiae, purpura or enlarged lymph nodes All/Imm: Denies: urticaria, throat swelling, tongue swelling, facial swelling or acute wheezing PFSH ED PFSH: Medical History Cellulitis Chronic back pain Diabetes Diastolic heart failure H/O staphylococcal septicemia HTN (hypertension) Hyperglycemia Obesity Renal failure Staphylococcus epidermidis bacteremia Thyroid disease Surgical History History of adenoidectomy History of appendectomy History of back surgery History of cholecystectomy History of tonsillectomy Family History Other Cancer Social History Smoking and tobacco status: never smoked Alcohol intake: never Lives independently: Yes Household members: spouse Housing: House Marital status: Physical Exam Const: COMMON NORMALS: no acute distress, patient oriented x3, no limitations and alert GENERAL APPEARANCE: cooperative HENMT: COMMON NORMALS: normocephalic, atraumatic, external ears normal, EAC's normal and Normal external nose present HEAD & SCALP: normal to inspection, normocephalic and atraumatic FACE & SINUS: normal facial exam and face symmetric NOSE: Normal external nose present and Normal nares present EXTERNAL EAR: Yes external ears normal EXTERNAL AUDITORY CANAL: EAC's normal MOUTH: Normal oral and palatal mucosa present, lip normal and tongue normal Eye: COMMON NORMALS: Equal, round and reactive pupils present and conjunctivae normal GENERAL EYE: appearance normal, both eyes and all related structures ALIGNMENT: Yes alignment normal PERIORBITAL: periorbital findings normal EYELID: eyelids normal CONJUNCTIVA: Yes conjunctivae normal SCLERA: sclerae normal PUPIL: Yes Equal, round and reactive pupils present Neck/C-Spine: COMMON NORMALS: full ROM, no lymphadenopathy, supple, no meningeal signs and no JVD GENERAL: Yes normal visual inspection and Yes trachea midline Chest: COMMONS NORMALS: normal inspection of the chest and normal palpation of entire chest wall Resp: COMMON NORMALS: normal respiratory effort, No retractions, No use of accessory muscles and clear to auscultation bilaterally EFFORT & INSPECTION: Yes able to speak in complete sentences and Yes symmetric chest movement AUSCULTATION: clear to auscultation bilaterally, no crackles, no rales, no rhonchi and no wheezes Cardio: COMMON NORMALS: no JVD, regular rate, regular rhythm, S1 normal heart sound present and S2 normal heart sound present RATE: regular rate RHYTHM: regular rhythm HEART SOUNDS: S1 normal heart sound present, S2 normal heart sound present, no click, no gallops, no murmurs and no rubs GI: COMMON NORMALS: Soft to palpation and No hepatosplenomegaly present PALPATION: Yes Soft to palpation, No Tenderness to palpation present (GI), No Guarding due to palpation present (GI), No Rigid due to palpation, Yes No hepatosplenomegaly present, No Hernia present, No Palpable mass present and No Pulsatile mass present : COMMON NORMALS: Yes no CVA tenderness BLADDER/KIDNEY EXAM: Yes no CVA tenderness EXTERNAL FEMALE EXAM: No Hernia present Back/Pelvis: COMMON NORMALS: no CVA tenderness, thoracic and lumbar spine normal to inspection, no thoracic nor lumbar tenderness and thoraco-lumbar ROM normal Extremity: COMMON NORMALS: normal to inspection, full ROM, capillary refill normal, no joint enlargement, no clubbing, cyanosis or edema and no calf tenderness Neuro: [place] COMA SCALE: document GCS findings [place] coma scale eye opening: Spontaneous [place] coma scale verbal response: Orientated [place] coma scale motor response: Obey commands [place] coma scale total score: 15 COMMON NORMALS: patient oriented x3, CN's II-XII intact bilaterally, moves all extremities, no focal motor deficits and no sensory deficits noted SENSORIUM/ORIENTATION: Yes alert MENINGEAL SIGNS: Yes no meningeal signs SPEECH: speech normal Psych: COMMON NORMALS: mental status grossly normal, Normal thought process present, cooperative, normal affect, speech normal and activity/motor behavior normal SPEECH: Yes normal speech THOUGHT PROCESS: Normal thought process present Skin: COMMON NORMALS: no rashes or lesions noted, turgor normal, no jaundice, no petechiae and no mottling GENERAL SKIN EXAM: no rashes or lesions noted and turgor normal Course ED course: 2124 -patient is agreeable to an IV for medications to be given but declines to have a lab work or big work-up done. After much reluctance she does agree to a CT of the head. At this time the patient does not have high risk features to suggest subarachnoid hemorrhage or meningitis. Patient's neurologic exam is normal. I will go and proceed with my typical migraine cocktail. Vital Signs: Vital signs: Vital Signs Temperature 97.0 F L 08/26/20 21:15 Pulse Rate 84 08/27/20 00:10 Respiratory Rate 20 H 08/27/20 02:06 Blood Pressure 102/87 08/27/20 00:10 Pulse Oximetry 98 08/27/20 02:06 MDM - Headache MDM Narrative: Medical decision making narrative: 0114 -the patient comes in with a headache that started over the course of several hours at home 4 days ago. It has been constant and is wax and wane in intensity throughout this time. She is not had a fever and she has no stiff neck. Her headache was not a sudden onset thunderclap type headache. The patient did not respond very well to my typical migraine cocktail but eventually got relief with IV Depacon. She still declined lab work throughout her time here in the emergency department. The patient was always very nice and cordial but she states that she has lots of health problems and simply did not want to go through a lot of this extensive work-up. She simply wanted this headache to go away so she can go home and sleep. I discussed with her at length and with her and her at length about the possibilities of subarachnoid hemorrhage and meningitis being a cause for her headache. She does have increased risk as she is currently on antibiotics for treatment of what sounds to be bacteremia. She also states her headache was fairly abrupt in onset but progressed over the course of several hours. I have informed them that a CT scan at this time does not completely rule out bleeding around the brain and cannot rule out meningitis. The patient asked me to call her infectious disease doctor Dr. Crowe and I have tried to reach him but he is not available and no one for the infectious disease service takes call. After the patient and her have discussed at length all the options they choose to go home at this time rather than have this procedure performed or be admitted and want to call Dr. Crowe in the morning. The patient states if after talking with him he feels that this needs to be done she will return here immediately for this. Patient understands that she is leaving AGAINST MEDICAL ADVICE but I have been my best to be kind to her and inform her she is free to return at any time. She states she understands this and agrees to do so but at this time she is feeling a great deal improved with what I have given her and just ask for a little more relief before she goes home. The patient is laughing and joking and has discussed everything at length with her . She clearly has the capacity to make this decision and her does support her decision. The patient has been warned but she has been welcomed to return. Imaging Data^: CT Head: Radiologist's impression: [address] [address] [address] Scan Report Signed Patient: Daniel Pierce #: [id number] : 8Acct#:[id number] Age/Sex: 60 / FADM Date: 08/26/20 Loc: ERRoom/Bed: Attending Dr: Ordering Provider/Ordering MD: Cleopatra Young DO Date of Service: 08/26/20 Procedure(s): CT head wo con* [id number] Accession Number(s): [id number] Report Number: [id number] PROCEDURE INFORMATION: Exam: CT Head Without Contrast Exam date and time: 08/26/2020 10:47 PM Age: 60 years old Clinical indication: Pain; Headache; Patient HX: PT scanned x 2. PT would not stay still TECHNIQUE: Imaging protocol: Computed tomography of the head without contrast. Radiation optimization: All CT scans at this facility use at least one of these dose optimization techniques: automated exposure control; mA and/or kV adjustment per patient size (includes targeted exams where dose is matched to clinical indication); or iterative reconstruction. COMPARISON: CT head wo con* [id number] 11/26/2019 4:40 PM RADIATION DOSE METRICS: Total DLP (mGy-cm): 1855.97 FINDINGS: Brain: Normal. No hemorrhage. Unremarkable white matter. No mass effect. Cerebral ventricles: No ventriculomegaly. Bones/joints: Unremarkable. No acute fracture. Paranasal sinuses: Visualized sinuses are unremarkable. No fluid levels. Mastoid air cells: Visualized mastoid air cells are well aerated. Soft tissues: Unremarkable. CT/CT head wo con* [id number] IMPRESSION: Negative for intracranial hemorrhage or mass effect Radiation Dose CTDIVOL = (mGy): DLP = 1855.97 (mGy-cm) Dictated By:Velasquez Mendoza MD Signed By:Velasquez Mendoza MDSigned Date/Time:08/26/202329 DD/ 27 EKG Data^: EKG 1: Attestation: I personally reviewed and interpreted this EKG as follows: EKG interpretation date: 08/26/20 EKG interpretation time: 21:34 Interpretation: Normal sinus rhythm at 88 beats a minute, no blocks, normal intervals, no acute ST-T wave changes. Discharge Plan Discharge Patient Disposition: Home Clinical Impression: Migraine Qualifiers: Migraine type: without aura Status migrainosus presence: with status migrainosus Intractability: not intractable Qualified Code(s): G43.001 - Migraine without aura, not intractable, with status migrainosus Headache Qualifiers: Headache type: unspecified Headache chronicity pattern: acute headache Intractability: not intractable Qualified Code(s): R51.9 - Headache, unspecified Condition: Stable Prescriptions: No Action metronidazole 500 mg tablet 500 mg PO TID RF: 0 daptomycin 500 mg recon soln 700 mg IVP Q48H RF: 0 clonidine HCl 0.1 mg tablet 0.1 mg PO BID RF: 0 allopurinol 100 mg tablet 100 mg PO DAILY RF: 0 hydrocodone-acetaminophen 7.5-325 mg tablet 1 tab PO TID MDD 3 PRN (Reason: pain (scale score 7-10)) 30 Days Qty: 90 RF: 0 torsemide 20 mg Tablet 80 mg PO DAILY RF: 0 hydrocodone-acetaminophen [[place]] 5-325 mg Tablet 1 tab PO Q6H PRN (Reason: Pain) RF: 0 triamcinolone acetonide 0.1 % Cream 1 applic TOPICAL TID PRN (Reason: UNKNOWN) RF: 0 levothyroxine 25 mcg Tablet 25 mcg PO DAILY RF: 0 oxybutynin chloride 5 mg Tablet 5 mg PO TID RF: 0 insulin lispro [Humalog KwikPen Insulin] 100 unit/mL Insulin Pen See Rx Instructions .ROUTE .COMPLEX RF: 0 Levemir FlexTouch U-100 Insuln 100 unit/mL (3 mL) Insulin Pen See Rx Instructions .ROUTE .COMPLEX RF: 0 Toujeo SoloStar U-300 Insulin 300 unit/mL (1.5 mL) Insulin Pen See Rx Instructions .ROUTE .COMPLEX RF: 0 cephalexin [Keflex] 500 mg Capsule 500 mg PO BID RF: 0 calcitriol 0.25 mcg Capsule See Rx Instructions .ROUTE .COMPLEX RF: 0 ropinirole 3 mg Tablet 3 mg PO TID RF: 0 metoprolol tartrate 50 mg Tablet 50 mg PO BID PRN (Reason: UNKNOWN) RF: 0 magnesium oxide 500 mg Tablet 500 mg PO DAILY RF: 0 vitamin L78-nzzve acid 0.5-1 mg Tablet 1 tab PO DAILY RF: 0 Cymbalta 60 mg Capsule,Delayed Release(Dr/Ec) 60 mg PO DAILY PRN (Reason: UNKNOWN) RF: 0 hydrocodone-acetaminophen 7.5-325 mg tablet 1 tab PO Q6H PRN (Reason: pain) Qty: 10 RF: 0 Discharge Orders: Discharge Order (Routine); Ordered 08/27/20 Ordered By: Cleopatra Young Referrals: Lexis Ring MD [Primary Care Provider] - 1-3 days Discharge Diet: Usual diet Discharge Activity: Increase activity as tolerated Patient Instructions: Headache - Migraine (Adult), Acute Headache (ED) Activity Restrictions/Additional Instructions: You're leaving AGAINST MEDICAL ADVICE and are at risk for or severe permanent disability by doing so. You are more than welcome to return at any time for recheck and for further evaluation and care suture change you change your mind. I have recommended and offered further evaluation and treatment here to include blood work, lumbar puncture/spinal tap and other testing to rule out bleeding within your brain along with infection around your brain. As we have discussed either one of these problems can be life-threatening or permanently disabling so if you change your mind, your symptoms return, you develop new symptoms, or you simply change your mind you are more than welcome to return at any time for further evaluation and care. Be certain to follow-up with your doctor soon as possible including calling Dr. Crowe and ask if he would like you to have this procedure performed and if so you are welcome to return here for recheck. Again I truly hope nothing bad happens and I do not want anything bad to happen to you and I am more than willing to perform this procedure to rule out these life-threatening diagnoses so please return if you change your mind. God bless you. Stand Alone Forms: Against Medical Advice Coding Level of Care Code ED Dispatcher Chief [employer] for Sherg Fwd Exam Comprehensive
--- NOTE | 2020-08-26 21:38 | ECG_ITS ---
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 Measurements Intervals [place] Rate: 88 P: 61 [place]: 153 QRS: -12 QRSD: 88 T: 18 QT: 362 QTc: 439 Interpretive Statements SINUS RHYTHM POSSIBLE ANTERIOR MYOCARDIAL INFARCTION , PROBABLY OLD [30 ms Q WAVE IN V3/V4, OR R < 0.2 mV IN V4] Compared to ECG 11/18/2019 19:05:30 Myocardial infarct finding now present Electronically Signed On 08-27-2020 21:33:29 CDT by Christian Contreras M.D. [email or web address]/store/[id number] jesus alberto
[2020-08-26] MEDS: diphenhydrAMINE 50 mg/mL SDV 1mL IVP (21:48)
[2020-08-26 22:10] VITALS: BP 201/92; PULSE 102; RESP 20; O2SAT 98
[2020-08-26] MEDS: metoclopramide 5 mg/mL SDV 2 mL 10 MG IV (22:22)
[2020-08-26] MEDS: sodium chloride 0.9% 1,000 ML 999 ML IV (22:24)
--- NOTE | 2020-08-26 22:30 | CTR_ITS ---
PROCEDURE INFORMATION: Exam: CT Head Without Contrast Exam date and time: 08/26/2020 10:47 PM Age: 60 years old Clinical indication: Pain; Headache; Patient HX: PT scanned x 2. PT would not stay still TECHNIQUE: Imaging protocol: Computed tomography of the head without contrast. Radiation optimization: All CT scans at this facility use at least one of these dose optimization techniques: automated exposure control; mA and/or kV adjustment per patient size (includes targeted exams where dose is matched to clinical indication); or iterative reconstruction. COMPARISON: CT head wo con* [id number] 11/26/2019 4:40 PM RADIATION DOSE METRICS: Total DLP (mGy-cm): 1855.97 FINDINGS: Brain: Normal. No hemorrhage. Unremarkable white matter. No mass effect. Cerebral ventricles: No ventriculomegaly. Bones/joints: Unremarkable. No acute fracture. Paranasal sinuses: Visualized sinuses are unremarkable. No fluid levels. Mastoid air cells: Visualized mastoid air cells are well aerated. Soft tissues: Unremarkable. CT/CT head wo con* [id number] IMPRESSION: Negative for intracranial hemorrhage or mass effect Radiation Dose CTDIVOL = (mGy): DLP = 1855.97 (mGy-cm)
[2020-08-26] MEDS: promethazine 25 mg/mL SDV 1 mL IM (23:07)
[2020-08-26] MEDS: labetalol 5 mg/mL SDV 20mL 10 MG IVP (23:08)
[2020-08-26 23:10] VITALS: BP 185/95; PULSE 96; RESP 20; O2SAT 97
[2020-08-26] MEDS: valproic acid inj 500 MG in sodium chloride 0.9% 50 ML 55 MG IV (23:57)
[2020-08-27 00:10] VITALS: BP 102/87; PULSE 84; RESP 18; O2SAT 98
[2020-08-27 01:10] VITALS: BP 214/116; PULSE 94; RESP 18; O2SAT 99
[2020-08-27] MEDS: dexamethasone 10 mg/mL INJ IVP (02:02)
[2020-08-27 02:06] VITALS: RESP 20; O2SAT 98
[2020-08-27] MEDS: HYDROmorphone 1 mg/mL INJ 1 mL 0.5 MG IVP (02:06)
[2020-08-27] MEDS: valproic acid inj 500 MG in sodium chloride 0.9% 50 ML 55 MG IV (02:08)
--- NOTE | 2020-08-27 02:09 | PC.NURSE ---
meds delayed due to pt needing to use restroom x2
[2020-08-27 02:10] VITALS: BP 196/89; PULSE 76; RESP 18; O2SAT 96
--- NOTE | 2020-08-27 03:26 | PC.NURSE ---
Dr informed pt additional testing would be needed to further investigate cause of H/A. Options included were spinal tap. Risks and benefits explained. Pt states she wishes to speak to her prior to making decision. Pt's spouse informed by Dr options. Pt spouse requesting to speak with pt's infectious disease Dr prior to making decision regarding spinal tap. Pt and spouse decide to wait until they can speak with infectious disease dr and possibly return to the ED if specialist recommends. Orders obtained for final pain med infusion completed. Pt d/c without further difficulties or complaints
--- NOTE | 2020-08-27 04:16 | PC.NURSE ---
I agree with Medic assessment
== END 2020-08-27 04:20 | disposition home or self-care (01) ==
PROVIDERS: Emergency Provider Emergency Medicine; PCP Family Medicine
DX: G43.001 Migraine without aura, not intractable, with status migrainosus (principal); Z79.4 Long term (current) use of insulin; E11.9 Type 2 diabetes mellitus without complications; I11.0 Hypertensive heart disease with heart failure; I50.30 Unspecified diastolic (congestive) heart failure
CPT/HCPCS: 12345; 70450; 93005; 96365; 96366; 96372; 96375; 99282; 99284; 99291; J0131; J1100; J1170; J1200; J2060; J2550; J2765; J3490; J7030

== ENCOUNTER 2020-08-27 11:29 | Inpatient (IN) | payer MEDICARE, SELFPAY ==
[2020-08-27] VITALS (23 sets, daily range): BP systolic 152–203; BP diastolic 72–118; PULSE 66–202; RESP 13–29; TEMP 37–37.5; O2SAT 91–99; BMI 51.5
--- NOTE | 2020-08-27 11:43 | XR_ITS ---
WS: [id number] XR chest 1V portable [id number] REASON FOR EXAM: ams FINDINGS: There is cardiomegaly. The thoracic aorta is moderately tortuous and ectatic. No active pulmonary parenchymal or pleural disease is identified. No significant abnormality of the bony thorax. XR/XR chest 1V portable [id number] IMPRESSION: No acute abnormality of the chest.
--- NOTE | 2020-08-27 11:43 | CT_ITS ---
WS: [id number] CT HEAD NONCONTRAST HISTORY: ams TECHNIQUE: Contiguous axial imaging performed through the brain in 2.5 mm imaging. Bone and soft tiss ue windows. Sagittal and coronal reformats reviewed. All CT scans at [facility] use at le ast one of these dose optimization techniques: automated exposure control; mA and/or kV adjustment pe r patient size (includes targeted exams where dose is matched to clinical indication); or iterative r econstruction. DLP: 1578.08 mGy.cm COMPARISON: 08/26/2020 and 11/26/2019 No acute intracranial hemorrhage. No midline shift or mass effect. There are scattered areas of decreased attenuation which were present on 08/26/2020 but not evident on 11/26/2019. Bilateral symmetric posterior parieto-occipital areas of decreased attenuation. Additional area of low-attenuation in the anterior RIGHT frontal lobe and bilaterally in the posterior frontal lobes towards the vertex. Ventricles: Normal size with no hydrocephalus. No inferior displacement of cerebellar tonsils. Paranasal sinuses: As visualized are clear. Mastoid air cells: Well pneumatized. Calvarium and scalp: Skull is intact with no soft tissue edema or swelling. CT/CT head wo con* [id number] IMPRESSION: 1. No acute intracranial hemorrhage or midline shift. 2. Multifocal areas of white matter edema/decreased attenuation. Similar to but new since 11/26/2019. Correlate for possible PRES. Otherwise other re asons for diffuse white matter abnormality such as cerebritis or vasculitis manisha uld be considered. Notified Benny Iverson MD at 08/27/2020 1:39 PM.
--- NOTE | 2020-08-27 11:44 | ECG_ITS ---
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 Measurements Intervals [place] Rate: 104 P: 64 IN: 167 QRS: 40 QRSD: 95 T: 35 QT: 360 QTc: 475 Interpretive Statements SINUS TACHYCARDIA LOW QRS VOLTAGE IN PRECORDIAL LEADS [QRS DEFLECTION < 1.0 mV IN CHEST LEADS] POSSIBLE ANTERIOR MYOCARDIAL INFARCTION , PROBABLY OLD [30 ms Q WAVE IN V3/V4, OR R < 0.2 mV IN V4] ABNORMAL RHYTHM ECG Compared to ECG 08/26/2020 21:34:39 Low QRS voltage now present Sinus rhythm no longer present Myocardial infarct finding still present Electronically Signed On 08-27-2020 21:38:01 CDT by Christian Contreras M.D. [email or web address]/store/[id number]
--- NOTE | 2020-08-27 11:52 | W.ED.AMS ---
HPI - Altered Mental Status General: Chief Complaint: Altered Mental Status Stated Complaint: ALOC Time Seen by Provider: 08/27/20 11:37 Source: EMS Mode of arrival: EMS Limitations: altered mental status History of Present Illness: HPI narrative: 1-year-old female who is a history of dialysis was here yesterday for a migraine. She had a normal head CT yesterday. Patient is became confused at home and is back up. Due to this. Patient here is unable to answer any my questions and is quite confused. She will follow some commands. She appears to have peaked T waves on her rhythm strip monitor. Review of Systems General: Reports: ROS unobtainable due to mental status PFSH ED PFSH: Medical History (Updated 08/27/20 @ 14:49 by Benny Iverson MD) Cellulitis Chronic back pain Diabetes Diastolic heart failure H/O staphylococcal septicemia HTN (hypertension) Hyperglycemia Obesity Renal failure Staphylococcus epidermidis bacteremia Thyroid disease Surgical History History of adenoidectomy History of appendectomy History of back surgery History of cholecystectomy History of tonsillectomy Family History Other Cancer Social History Smoking and tobacco status: never smoked Alcohol intake: never Lives independently: Yes Household members: spouse Housing: House Marital status: Physical Exam Const: COMMON NORMALS: apparent distress, negative for patient oriented x3 and negative for healthy appearing GENERAL APPEARANCE: ill appearing HENMT: COMMON NORMALS: normocephalic and atraumatic HEAD & SCALP: normocephalic and atraumatic Eye: COMMON NORMALS: Equal, round and reactive pupils present and EOMs intact bilaterally PUPIL: Yes Equal, round and reactive pupils present Neck/C-Spine: COMMON NORMALS: full ROM and supple Chest: COMMONS NORMALS: normal inspection of the chest and normal palpation of entire chest wall Resp: COMMON NORMALS: normal respiratory effort, No retractions, No use of accessory muscles and clear to auscultation bilaterally AUSCULTATION: clear to auscultation bilaterally Cardio: COMMON NORMALS: regular rate, regular rhythm and No murmurs present (Cardio) RATE: regular rate RHYTHM: regular rhythm GI: COMMON NORMALS: Normal to inspection, nondistended, normoactive bowel sounds present, Soft to palpation, non-tender and no masses PALPATION: Yes Soft to palpation Extremity: COMMON NORMALS: normal to inspection and full ROM Neuro: COMMON NORMALS: moves all extremities; negative for patient oriented x3 Psych: COMMON NORMALS: Normal thought process present and cooperative; negative for mental status grossly normal THOUGHT PROCESS: Normal thought process present Skin: COMMON NORMALS: no rashes or lesions noted and no wounds GENERAL SKIN EXAM: no rashes or lesions noted Course Vital Signs: Vital signs: Vital Signs Temperature 98.6 F 08/27/20 11:30 Pulse Rate 149 H 08/27/20 13:55 Respiratory Rate 22 H 08/27/20 13:55 Blood Pressure 183/77 08/27/20 12:09 Pulse Oximetry 96 08/27/20 13:55 MDM - Altered Mental Status MDM Narrative: Medical decision making narrative: Patient presents here with end-stage renal disease is found to be hyperkalemic. Patient is also quite hypertensive and has altered mental status here today. CT shows findings of press likely from her hypertension. I spoke to the hospitalist and will admit here to the ICU. Lab Data: Labs: Lab Results 08/27/20 08/27/20 08/27/20 Range/Units 12:17 12:17 12:17 WBC 8.8 (4.0-10.0) 10^3/ uL RBC 4.45 (4.1-5.3) 10^6/u L Hgb 11.3 L (11.5-15.3) g/dL Hct 37.1 (37.0-47.0) % MCV 83.4 (81-99) fL MCH 25.4 L (28.0-34.0) pg MCHC 30.5 (30.0-36.0) g/dL RDW 16.4 H (12.1-15.1) % Plt Count 219 (130-400) 10^3/c mm MPV 10.3 (7.4-10.4) fL Neut % (Auto) 94.5 % Lymph % (Auto) 4.6 % [place] % (Auto) 0.6 % Eos % (Auto) 0.0 % Baso % (Auto) 0.1 % Neut # (Auto) 8.27 H (1.8-7.7) 10^3/u L Lymph # (Auto) 0.4 L (0.8-4.8) 10^3/u L [place] # (Auto) 0.1 L (0.2-0.9) 10^3/u L Eos # (Auto) 0.0 (0.0-0.8) 10^3/u L Baso # (Auto) 0.0 (0.0-0.1) 10^3/u L Nucleated RBC % (a uto) 0 % Nucleated RBCs # 0.0 /100WBC PT 13.90 (12.1-14.9) SECO NDS INR 1.06 (0.8-1.2) Specimen Type Sample Site ABG pH (7.35-7.45) ABG pCO2 (35-45) mmHg ABG pO2 (80.0-100.0) mmH g ABG HCO3 (22-26) mmol/L ABG Base Excess (-2.0-2.0) mmol/ L Seun Test Hematocrit (37-47) % O2 Delivery Device O2 Liters/Min % FiO2 % Senior Scientist ID Sodium 137 (136-145) mmol/L Potassium 6.1 H (3.5-5.1) mmol/L Chloride 102 (98-107) mmol/L Carbon Dioxide 19 L (22-29) mmol/L Anion Gap 22.1 H (5-19) BUN 40 H (8-23) mg/dL Creatinine 2.1 H (0.5-0.9) mg/dL GFR Calculation 23.9 L (90-130) mL/min Glucose 481 H (65-115) mg/dL Calculated Osmolal ity 315 H (285-295) mOsm/k g Calcium 9.1 (8.5-10.5) mg/dL Magnesium 2.0 (1.7-2.3) mg/dL Total Bilirubin 0.3 (0.15-1.2) mg/dL AST 16 (0-32) U/L ALT 14 (0-33) U/L Alkaline Phosphata se 153 H (35-105) IU/L Total Protein 7.4 (6.6-8.7) g/dL Albumin 3.9 (3.5-5.2) g/dL Globulin 3.5 (1.3-4.6) g/dL Urine Color (Yellow) Urine Appearance (CLEAR) Urine pH (5-7) Ur Specific Gravit y (1.005-1.030) Urine Protein (Negative) Urine Glucose (UA) (Normal) Urine Ketones (Negative) Urine Blood (Negative) Urine Nitrate (Negative) Urine Bilirubin (Negative) Urine Urobilinogen (Negative) mg/dL Ur Leukocyte Staci ase (Negative) Urine RBC (0-2) /hpf Urine WBC (0-5) /hpf Ur Squamous Epith Cells (0-5) /hpf Amorphous Sediment Urine Bacteria (NONE) /hpf Ethyl Alcohol < 10 (0-10) mg/dL 08/27/20 08/27/20 Range/Units 13:00 13:27 WBC (4.0-10.0) 10^3/ uL RBC (4.1-5.3) 10^6/u L Hgb (11.5-15.3) g/dL Hct (37.0-47.0) % MCV (81-99) fL MCH (28.0-34.0) pg MCHC (30.0-36.0) g/dL RDW (12.1-15.1) % Plt Count (130-400) 10^3/c mm MPV (7.4-10.4) fL Neut % (Auto) % Lymph % (Auto) % [place] % (Auto) % Eos % (Auto) % Baso % (Auto) % Neut # (Auto) (1.8-7.7) 10^3/u L Lymph # (Auto) (0.8-4.8) 10^3/u L [place] # (Auto) (0.2-0.9) 10^3/u L Eos # (Auto) (0.0-0.8) 10^3/u L Baso # (Auto) (0.0-0.1) 10^3/u L Nucleated RBC % (a uto) % Nucleated RBCs # /100WBC PT (12.1-14.9) SECO NDS INR (0.8-1.2) Specimen Type Arterial Sample Site Radial, right ABG pH 7.37 (7.35-7.45) ABG pCO2 36.3 (35-45) mmHg ABG pO2 87.2 (80.0-100.0) mmH g ABG HCO3 20.8 L (22-26) mmol/L ABG Base Excess -4.0 L (-2.0-2.0) mmol/ L Seun Test Pos Hematocrit 35.7 L (37-47) % O2 Delivery Device Nc O2 Liters/Min 2.0 % FiO2 28.0 % Senior Scientist ID Cak Sodium (136-145) mmol/L Potassium (3.5-5.1) mmol/L Chloride (98-107) mmol/L Carbon Dioxide (22-29) mmol/L Anion Gap (5-19) BUN (8-23) mg/dL Creatinine (0.5-0.9) mg/dL GFR Calculation (90-130) mL/min Glucose (65-115) mg/dL Calculated Osmolal ity (285-295) mOsm/k g Calcium (8.5-10.5) mg/dL Magnesium (1.7-2.3) mg/dL Total Bilirubin (0.15-1.2) mg/dL AST (0-32) U/L ALT (0-33) U/L Alkaline Phosphata se (35-105) IU/L Total Protein (6.6-8.7) g/dL Albumin (3.5-5.2) g/dL Globulin (1.3-4.6) g/dL Urine Color Yellow (Yellow) Urine Appearance Clear (CLEAR) Urine pH 7 (5-7) Ur Specific Gravit y 1.005 (1.005-1.030) Urine Protein 3+ H (Negative) Urine Glucose (UA) 4+ H (Normal) Urine Ketones Negative (Negative) Urine Blood 2+ H (Negative) Urine Nitrate Negative (Negative) Urine Bilirubin Neg (Negative) Urine Urobilinogen Neg (Negative) mg/dL Ur Leukocyte Staci ase Negative (Negative) Urine RBC 10-15 H (0-2) /hpf Urine WBC 0-4 H (0-5) /hpf Ur Squamous Epith Cells 10-15 H (0-5) /hpf Amorphous Sediment Not Reportable Urine Bacteria Trace (NONE) /hpf Ethyl Alcohol (0-10) mg/dL Imaging Data^: CXR: Radiologist's impression: [address] [place] [address] XRay Report Signed Patient: Berenice Pierce Unit #: [id number] : 1960 Age/Sex: 60 / F ADM Date: 08/27/20 Loc: ER Room/Bed: Attending Dr: Ordering Provider/Ordering MD: Benny Iverson MD Date of Service: 08/27/20 Procedure(s): XR chest 1V portable [id number] Accession Number(s): [id number] Report Number: [id number] WS: [id number] XR chest 1V portable [id number] REASON FOR EXAM: ams FINDINGS: There is cardiomegaly. The thoracic aorta is moderately tortuous and ectatic. No active pulmonary parenchymal or pleural disease is identified. No significant abnormality of the bony thorax. XR/XR chest 1V portable [id number] IMPRESSION: No acute abnormality of the chest. EKG Data^: EKG 1: Attestation: I personally reviewed and interpreted this EKG as follows: EKG interpretation date: 08/27/20 EKG interpretation time: 11:51 Interpretation: sinus tach hr [address] or t wave abnormalities qrs 95 qtc 421 Critical Care Time Critical Care Time: Critical Care Time: Yes Total Critical Care Time: 36 Attestation: This case had a high probability of a clinically significant, sudden, or life threatening deterioration of this patient's condition which required my full and direct attention, intervention and personal management. Discharge Plan Discharge Patient Disposition: Admitted As Inpatient Clinical Impression: Acute hyperkalemia, PRES (posterior reversible encephalopathy syndrome) Renal failure Qualifiers: Renal failure chronicity: chronic Altered mental status Qualifiers: Altered mental status type: unspecified Qualified Code(s): R41.82 - Altered mental status, unspecified Condition: Stable Referrals: Lexis Ring MD [Primary Care Provider] - Coding Level of Care Code ED Inspector Hairspring [employer]ing for Chg Fwd Exam Comprehensive
--- NOTE | 2020-08-27 12:16 | PC.NURSE ---
EKG done at 1151 and shown to ER doctor
[2020-08-27 12:35] LABS: Basophils % 0.1 %; Hematocrit 37.1 % (37.0-47.0); Hemoglobin 11.3 g/dL (11.5-15.3); Lymphocytes # 0.4 10^3/uL (0.8-4.8); Lymphocytes % 4.6 %; Mean Corpuscular HGB Conc 30.5 g/dL (30.0-36.0); Mean Corpuscular Hemoglobin 25.4 pg (28.0-34.0); Mean Corpuscular Volume 83.4 fL (81-99); Mean Platelet Volume 10.3 fL (7.4-10.4); Monocytes # 0.1 10^3/uL (0.2-0.9); Monocytes % 0.6 %; Neutrophils # 8.27 10^3/uL (1.8-7.7); Neutrophils % 94.5 %; Nucleated Red Blood Cells % 0 %; Platelet Count 219 10^3/cmm (130-400); Red Blood Count 4.45 10^6/uL (4.1-5.3); Red Cell Distribution Width 16.4 % (12.1-15.1); White Blood Count 8.8 10^3/uL (4.0-10.0)
[2020-08-27] MEDS: LORazepam 2 mg/mL INJ 1 mL 1 MG IVP (12:50)
[2020-08-27 13:02] LABS: Alanine Aminotransferase 14 U/L (0-33); Albumin Level 3.9 g/dL (3.5-5.2); Alcohol Level < 10 mg/dL (0-10); Alkaline Phosphatase 153 IU/L (35-105); Anion Gap 22.1 (5-19); Aspartate Amino Transferase 16 U/L (0-32); Blood Urea Nitrogen 40 mg/dL (8-23); Calcium 9.1 mg/dL (8.5-10.5); Carbon Dioxide 19 mmol/L (22-29); Chloride 102 mmol/L (98-107); Globulin 3.5 g/dL (1.3-4.6); Glomerular Filtration Rate 23.9 mL/min (90-130); Glucose 481 mg/dL (65-115); Osmolality Calculated 315 mOsm/kg (285-295); Potassium 6.1 mmol/L (3.5-5.1); Sodium 137 mmol/L (136-145); Total Bilirubin 0.3 mg/dL (0.15-1.2); Total Protein 7.4 g/dL (6.6-8.7)
[2020-08-27 13:05] LABS: INR 1.06 (0.8-1.2)
[2020-08-27 13:32] LABS: Specific Gravity, Urine 1.005 (1.005-1.030); Urine Appearance Clear (CLEAR); Urine Color Yellow (Yellow); pH Urine 7 (5-7)
[2020-08-27 13:33] LABS: Add Urine Microscopic? YES; Bilirubin Urine Neg (Negative); Blood Urine 2+ (Negative); Glucose Urine UA 4+ (Normal); Ketones Urine Negative (Negative); Leukocyte Esterase Urine Negative (Negative); Nitrate Urine Negative (Negative); Protein Urine 3+ (Negative); Urobilinogen Urine Neg (Negative)
[2020-08-27 13:38] LABS: ABG PCO2 36.3 mmHg (35-45); ABG PH Result 7.37 (7.35-7.45); Arterial Blood Gas Hematocrit 35.7 % (37-47); Blood Gas Allen Test Pos; Blood Gas Operator Identificat CAK; Blood Gas Sample Site Radial, right; Blood Gas Sample Type Arterial; HCO3 ABG 20.8 mmol/L (22-26); Oxygen Device NC; PO2 ABG 87.2 mmHg (80.0-100.0)
[2020-08-27] MEDS: calcium gluconate 0.1 gm/mL 10% SDV 10mL 1 GM IVP (13:52)
[2020-08-27] MEDS: insulin regular-human 100 units/1 mL 10 UNIT IVP (13:52)
[2020-08-27] MEDS: dextrose 50% syringe 50 mL IVP (13:52)
[2020-08-27] MEDS: LORazepam 2 mg/mL INJ 1 mL IVP (13:54)
[2020-08-27 14:13] LABS: WBC Urine 0-4 /hpf (0-5)
[2020-08-27 14:14] LABS: Add Urine Culture? No; Bacteria Urine TRACE /hpf
[2020-08-27] MEDS: labetalol 5 mg/mL SDV 20mL 20 MG IVP (15:03)
--- NOTE | 2020-08-27 16:05 | PC.NURSE ---
attempted to call pt report to ICU. Advised that ICU nurse will call back for pt report.
--- NOTE | 2020-08-27 16:31 | PC.NURSE ---
attempted to call pt report to ICU for the third time. ICU unable to take report at this time.
--- NOTE | 2020-08-27 16:34 | PM.CONSULT ---
Providers/Reason For Consult Consulting Physican/Specialty*: zheng turcios md/ telenephrology/ Reason for Consult*: renal failure Attending Physician: Dallas Hendrickson Primary Care Provider: Lexis Ring MD History of Present Illness History of Present Illness Berenice Pierce is a 60 year old female here w/ AMS and htn. she was in ER w/ migraines yesterday. she returns today w/ AMS. h/o htn, dm, thoracic spine injury w/ hardware and h/o staph epi bacteremia and ELISHA. I am unable to get an accurate history if she is ESRD. She is confused. per ER nurse, the kait said she has not had HD for days. H/o TARA, diastolic dysfunction, IDDM, and hypothyroidism. Review of Systems General: Reports: ROS unobtainable due to mental status Narrative: confused, headache, uncomfortable, sob, swollen Meds/Allergies Home Medications and Allergies Home Medications Medication Instructions Recorded Confirmed Last Taken Type calcitriol See Rx Instructions .ROUTE .COMPLEX 11/26/19 08/27/20 11/25/19 History cephalexin [Keflex] 500 mg PO BID 11/26/19 08/27/20 11/25/19 History duloxetine [Cymbalta] 60 mg PO DAILY 11/26/19 08/27/20 Unknown History insulin detemir U-100 [Levemir See Rx Instructions .ROUTE .COMPLEX 11/26/19 08/27/20 11/24/19 History FlexTouch U-100 Insuln] insulin glargine U-300 conc See Rx Instructions .ROUTE .COMPLEX 11/26/19 08/27/20 11/26/19 History [Toujeo SoloStar U-300 Insulin] insulin lispro [Humalog KwikPen See Rx Instructions .ROUTE .COMPLEX 11/26/19 08/27/20 Unknown History Insulin] levothyroxine 25 mcg PO DAILY 11/26/19 08/27/20 11/25/19 History magnesium oxide 500 mg PO DAILY 11/26/19 08/27/20 11/25/19 History metoprolol tartrate 50 mg PO BID 11/26/19 08/27/20 Unknown History oxybutynin chloride 5 mg PO TID 11/26/19 08/27/20 11/25/19 History ropinirole 3 mg PO BID 11/26/19 08/27/20 11/24/19 History torsemide 100 mg PO Q48H 11/26/19 08/27/20 11/25/19 History triamcinolone acetonide 1 applic TOPICAL TID PRN 11/26/19 08/27/20 Unknown History vitamin G13-jdkat acid 1 tab PO DAILY 11/26/19 08/27/20 11/25/19 History allopurinol 100 mg tablet 100 mg PO DAILY 07/29/20 08/27/20 Unknown History clonidine HCl 0.1 mg tablet 0.1 mg PO BEDTIME 07/29/20 08/27/20 Unknown History hydrocodone 7.5 mg-acetaminophen 1 tab PO TID PRN 30 Days #90 tab 07/29/20 08/27/20 Unknown Rx 325 mg tablet MDD 3 amoxicillin-pot clavulanate 1 tab PO BID 08/27/20 08/27/20 Unknown History sulfamethoxazole-trimethoprim 1 tab PO BID 08/27/20 08/27/20 Unknown History Allergies Allergy/AdvReac Type Severity Reaction Status Date / Time sulfamethoxazole Allergy Unknown Unknown Verified 07/29/20 08:58 [From Bactrim] trimethoprim [From Bactrim] Allergy Unknown Unknown Verified 07/29/20 08:58 levofloxacin [From Levaquin] Allergy ADR-Itching Verified 07/29/20 08:58 NSAIDS (Non-Steroidal Allergy Unknown Verified 07/29/20 08:58 Anti-Inflamma PFSH Acute PFSH: Medical History (Updated 08/27/20 @ 14:49 by Benny Iverson MD) Cellulitis Chronic back pain Diabetes Diastolic heart failure H/O staphylococcal septicemia HTN (hypertension) Hyperglycemia Obesity Renal failure Staphylococcus epidermidis bacteremia Thyroid disease Surgical History History of adenoidectomy History of appendectomy History of back surgery History of cholecystectomy History of tonsillectomy Family History Other Cancer Social History Smoking and tobacco status: never smoked Alcohol intake: never Lives independently: Yes Household members: spouse Housing: House Marital status: Vitals/I&O/Wt Last Vital Signs Temp 98.6 F 08/27/20 11:30 Pulse 102 H 08/27/20 15:37 Resp 20 H 08/27/20 15:37 BP 203/106 08/27/20 15:07 Pulse Ox 94 08/27/20 15:37 Weight last 48 hrs Weight 136.078 kg Physical Exam Narrative: EXAM NARRATIVE: morbidly obese, uncomfortable, sob, confused in bed heent- nc/at neck supple lungs crackles heart reg abd soft, nt, nd, +BS ext b/l leg edema. LUE AVF w/ thrill and bruit neuro- a,a, o x1. she moves. she is confused A&P Additional A&P Information 60 yr old female obesity, hypothyroidism, TARA, Diastolic dysfunction, CKD- Per ER she is ESRD- last dialysis unknown where and when- I called and no answer on his phone. 1. HTN- SOB- AMS- and Per HX ESRD- will dialyze now to RX hyperkalemia and lower BP- see if helps MS. 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 attempt to wean off esmolol drip 3. hgb okay 4. DM control 5. check tsh 6. check echo- eval for pericardial effusion -discussed w/ Dr. Ellison in detail Consult Attestations Medical Necessity Statement: AMS, renal insufficiency, HTN emergency Time Spent in Patient Care: Greater than 35 minutes Coding Level of Care Code Acute Superintendent Of Generation for Aimee Gonzalez
--- NOTE | 2020-08-27 16:44 | PC.NURSE ---
pt spouse reports that the patient has not had hemodialysis in the past few weeks . pt spouse reports that the pt recieves dialysis in [place]. pt has a left upper arm dialysis shunt.
--- NOTE | 2020-08-27 16:45 | PC.NURSE ---
pt spouse Félix Pierce phone number [phone]
--- NOTE | 2020-08-27 17:03 | PC.NURSE ---
attempted to call pt report to ICU. Advised that ICU is unable to take report at this time.
[2020-08-27] MEDS: heparin 5,000 unit/mL INJ 1 mL 5000 UNIT SUBCUT (17:18)
--- NOTE | 2020-08-27 17:26 | PC.NURSE ---
ICU unable to take report at this time.
--- NOTE | 2020-08-27 17:52 | P.HP_ITS ---
Providers/Chief Complaint Admitting Physician: Dallas Hendrickson Primary Care Provider: Lexis Ring MD Chief Complaint: ALOC History of Present Illness Berenice Pierce is a 60 year old lady with ESRD previously on hemodialysis, has had a dialysis port removed about a week ago, and had previously had left arm fistula created, but had to be readjusted due to it being too deep which was done probably about a month ago. Her dialysis port was removed 1-2 weeks ago as she was found not needing dialysis. She reportedly follows with Dr. Apodaca here, and Dr. Mitchell in [place]. She recently had a toe amputated due to osteomyelitis. She also is on chronic antibiotic suppression, although the does not remember which antibiotic, and follows with infectious disease Dr. 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 says that she has otherwise been doing pretty well up until about 4 days ago when she developed a headache which had persisted. He says that yesterday they had come in to the ER as she was slightly confused as well, although by the time of discharge it appears she had gotten much better. He states that for the most part her blood pressure has not been an issue recently, and that she was seen by her primary care provider in office recently as well. Today she was acting more confused, thinking she was having an appointment which she did not, and then while in the shower she told him she was not feeling well, slumped/slid down (not fell down) to the shower floor, and subsequently he witnessed that she was unresponsive and shaking for about 30 seconds. He says that subsequently she was not communicating with him for probably about 15-20 minutes until EMS arrived. In ER she is noted very confused, restless, shifting around in bed. states that she deals with chronic pain in her back, and that she not infrequently has been sleeping sitting up at the edge of the bed for a while now. also states she has history of obstructive sleep apnea, although has not been adherent with CPAP, which she currently is also missing some parts. He says they have tried a number of different masks and she does not like something over her face. He does feel that she breathes better when her head of bed is elevated somewhat, and feels that that is probably what she has been trying to do while being confused. In ER she is found rather hypertensive, initially 183/77, but as high as 203/106. Last night was as high as 214/116. He states her last hemodialysis was over 2 weeks ago, although does say that she has previously had episodes where she was off hemodialysis for a while, and then required restarting again due to again worsening renal function. He says she also had episodes of con fusion and appears were associated with her approaching need to restart dialysis. In ER CT of the head is found showing multifocal areas of white matter edema/decreased attenuation similar to 08/26/2020, but new since 11/26/2021. Images concerning for PRES or other white matter abnormality. Review of Systems Const: Denies: fever(s), chills, body aches or malaise Eyes: Denies: change in vision or eye redness ENMT: Denies: throat pain, oral sores or ear or mastoid pain Card: Denies: chest pain, edema, pre-syncope or dyspnea on exertion Resp: Denies: dyspnea, productive cough, change in phlegm color or hemoptysis GI: Denies: abdominal pain, nausea, vomiting, diarrhea, constipation, hematochezia or melena : Denies: flank pain, urinary frequency or hematuria Musc: Denies: back pain, joint swelling or joint redness Skin/Breast: Denies: rash, sores or new lesions Neuro: Reports: headache(s), confusion and seizure-like activity; Denies: numbness in extremities, weakness in extremities or dizziness Endo: Denies: polyuria or polydipsia Shwan/Lymph: Denies: easy bleeding or purpura All/Imm: Denies: urticaria, throat swelling or tongue swelling Medications/Allergies Home Medications Medication Instructions Recorded Confirmed Last Taken Type calcitriol See Rx Instructions .ROUTE .COMPLEX 11/26/19 08/27/20 11/25/19 History cephalexin [Keflex] 500 mg PO BID 11/26/19 08/27/20 11/25/19 History duloxetine [Cymbalta] 60 mg PO DAILY 11/26/19 08/27/20 Unknown History insulin detemir U-100 [Levemir See Rx Instructions .ROUTE .COMPLEX 11/26/19 08/27/20 11/24/19 History FlexTouch U-100 Insuln] insulin glargine U-300 conc See Rx Instructions .ROUTE .COMPLEX 11/26/19 08/27/20 11/26/19 History [Toujadao SoloStar U-300 Insulin] insulin lispro [Humalog KwikPen See Rx Instructions .ROUTE .COMPLEX 11/26/19 08/27/20 Unknown History Insulin] levothyroxine 25 mcg PO DAILY 11/26/19 08/27/20 11/25/19 History magnesium oxide 500 mg PO DAILY 11/26/19 08/27/20 11/25/19 History metoprolol tartrate 50 mg PO BID 11/26/19 08/27/20 Unknown History oxybutynin chloride 5 mg PO TID 11/26/19 08/27/20 11/25/19 History ropinirole 3 mg PO BID 11/26/19 08/27/20 11/24/19 History torsemide 100 mg PO Q48H 11/26/19 08/27/20 11/25/19 History triamcinolone acetonide 1 applic TOPICAL TID PRN 11/26/19 08/27/20 Unknown H istory vitamin A36-padrk acid 1 tab PO DAILY 11/26/19 08/27/20 11/25/19 History allopurinol 100 mg tablet 100 mg PO DAILY 07/29/20 08/27/20 Unknown History clonidine HCl 0.1 mg tablet 0.1 mg PO BEDTIME 07/29/20 08/27/20 Unknown History hydrocodone 7.5 mg-acetaminophen 1 tab PO TID PRN 30 Days #90 tab 07/29/20 08/27/20 Unknown Rx 325 mg tablet MDD 3 amoxicillin-pot clavulanate 1 tab PO BID 08/27/20 08/27/20 Unknown History sulfamethoxazole-trimethoprim 1 tab PO BID 08/27/20 08/27/20 Unknown History Allergies Allergy/AdvReac Type Severity Reaction Status Date / Time sulfamethoxazole Allergy Unknown Unknown Verified 07/29/20 08:58 [From Bactrim] trimethoprim [From Bactrim] Allergy Unknown Unknown Verified 07/29/20 08:58 levofloxacin [From Levaquin] Allergy ADR-Itching Verified 07/29/20 08:58 NSAIDS (Non-Steroidal Allergy Unknown Verified 07/29/20 08:58 Anti-Inflamma PFSH Acute 2 PFSH: Medical History (Updated 08/27/20 @ 18:45 by Dallas Hendrickson MD) Cellulitis Chronic antibiotic suppression Chronic back pain Diabetes Diastolic heart failure H/O staphylococcal septicemia HTN (hypertension) Hyperglycemia Obesity TARA (obstructive sleep apnea) Renal failure RLS (restless legs syndrome) Staphylococcus epidermidis bacteremia Thyroid disease Surgical History Amputated great toe Arteriovenous fistula H/O: hysterectomy History of adenoidectomy History of appendectomy History of back surgery History of cholecystectomy History of tonsillectomy Family History Other Cancer Social History Smoking and tobacco status: never smoked Alcohol intake: never Lives independently: Yes Household members: spouse Housing: House Marital status: Vitals/I&O/Wt Last Vital Signs Temp 98.6 F 08/27/20 11:30 Pulse 99 08/27/20 17:02 Resp 18 08/27/20 17:02 BP 175/86 08/27/20 17:02 Pulse Ox 95 08/27/20 17:02 Weight last 48 hrs Weight 136.078 kg Physical Exam Const: COMMON NORMALS: no acute distress EXAM LIMITATIONS: altered mental status GENERAL APPEARANCE: not cooperative NUTRITIONAL APPEARANCE: obese ORIENTATION/CONSCIOUSNESS: Yes awake and Yes confused HENMT: COMMON NORMALS: oropharynx normal Eye: COMMON NORMALS: Equal, round and reactive pupils present Neck/C-Spine: COMMON NORMALS: no JVD Resp: COMMON NORMALS: normal respiratory effort and clear to auscultation bilaterally AUSCULTATION: clear to auscultation bilaterally and bronchial breath sounds Cardio: COMMON NORMALS: no JVD, regular rhythm, S1 normal heart sound present, S2 normal heart sound present and No murmurs present (Cardio) RATE: tachycardic RHYTHM: regular rhythm HEART SOUNDS: S1 normal heart sound present and S2 normal heart sound present GI: COMMON NORMALS: Normal to inspection, nondistended, normoactive bowel sounds present, Soft to palpation and non-tender PALPATION: Yes Soft to palpation Extremity: COMMON NORMALS: no joint enlargement and no pedal edema NARRATIVE EXTREMITY EXAM: Great toe amputation. Left fourth digit ring removed and received by RN in ER. Neuro: COMMON NORMALS: moves all extremities SENSORIUM/ORIENTATION: Yes oriented to person, No oriented to place and No oriented to time SPEECH: speech normal (But very confused, only able to tell me her name, does not answer any other questions.) MOTOR EXAM: 5/5 motor strength present throughout Skin: COMMON NORMALS: no rashes or lesions noted Data : 08/27/20 12:17 08/27/20 12:17 A&P Assessment and plan (1) Acute encephalopathy: Return to ER today with confusion, has had persistent headache, at home just prior to EMS arrival had 30 seconds of shaking seizure-like activity, unresponsive, subsequently nonverbal at least 15-20 minutes until arrival of EMS. In ER very confused, restless, is only able to tell me her name. Is moving all extremities. Grossly exam does not appear to have focal normality. She is afebrile, however, as noted in ER notes from yesterday cannot exclude infectious causes. CT of the head appears to show diffuse white matter abnormality, as per discussion with neurology and her most consistent with PRES syndrome for which she has risk factors including ESRD, and has not underwent hemodialysis in at least 2 weeks (due to improvement in renal function, as has been the case several times in the past prescription with her ), as well as very elevated blood pressures, however, other conditions cannot be excluded past also per discussion of ER physician with her and her yesterday, including possible infectious encephalitis given her recent IV antibiotic course that she had completed per discussion with her (he does not remember the name of the antibiotic), as well as history of chronic antibiotic suppression due to history 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 Ordered esmolol drip with target blood pressure less than 140 systolic. Discussed with RN in ER. Hemodialysis. Per discussion with neurology at this time empiric coverage and LP (is going to be attempted by ER physician per discussion with neurology, although may be difficult due to body habitus, confusion, and the presence of prior lower thor acic hardware in the spine) for possible infection related encephalitis. Requested records from Dr. Crowe regarding what chronic antibiotic suppression she is on as does not remember. As per discussion with neurology empiric antiepileptic coverage. Plan for outpatient EEG and follow-up with neurology. ESR, CRP, BEREKET, ANCA One-to-one sitter. Ativan as needed if severe agitation. Seizure precautions. N.p.o. ICU Status: Acute (2) Hypertensive emergency: As above Status: Acute (3) Seizure: Secondary to likely PRES, hypertensive emergency, but additional work-up as above. Status: Acute (4) Renal failure: Chronic renal failure, ESRD, has been on and off hemodialysis depending on her renal function, and last hemodialysis is been over 2 weeks ago per . He does state that he has had previous episodes of confusion prior to needing to resume dialysis. Appreciate nephrology assessment and recommendations. Status: Acute Qualifiers: Renal failure chronicity: chronic (5) Acute hyperkalemia: As per nephrology recommendations. Hemodialysis. 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 Obtain records from Dr. Crowe's office with regards to which medication she is chronically taking. does not remember and she appears to have several different antibiotics listed including Augmentin, Keflex, Bactrim (although Bactrim also listed under allergy, per apparently was told that sometimes needs to take it ). Status: Acute Additional A&P Information Chronic alk phos elevation Dirty urine sample Recent osteomyelitis of great toe: Status post amputation, says recently completed course of IV antibiotic (about 2 weeks ago) Diabetes: is not sure how much insulin she is taking. For now we will start on sliding scale insulin. Medication dose will need to be obtained. She is for now n.p.o. TARA: She is supposed to be using nightly CPAP, but has not been using it at home, her CPAP is missing parts. says that she does not tolerate things over her face. Currently due to confusion, agitation hold off on CPAP. Resume once she is able to. Discussed with and encouraged him to get the home CPAP functioning again, as untreated TARA will predispose her again to episodes of hypertension which should be avoided in her case as much as possible. RLS: was not sure if maybe she might take more than usual medications for RLS as he says she gets very severe symptoms, although has never actually observed her taking extra medications. For now oral medications are on hold. Hypothyroidism Urinary incontinence CHF, history of diastolic HLD Obesity Chronic back pain: says not infrequently sits at the edge of the bed to sleep Other chronic medical conditions noted. Attestations Medical Necessity Statement*: Admission of over 2 midnights continued for assessment management of acute encephalopathy, hypertensive emergency. Critical Care Time: In addition to noncritical issues 65 minutes of critical care time spent on immediately life-threatening issues including severe acute encephalopathy, hypertensive emergency, PRES syndrome, renal failure with possible uremia, seizure, in a lady with multiple chronic comorbidities. Case discussed with ER physician, nephrology, neurologist, patient's , and nursing staff. Coding Level of Care Code Acute Electrical Cad Technician for [facility] Fwd Exam Comprehensive Diagnoses Acute encephalopathy G93.40 Hypertensive emergency I16.1 Seizure R56.9 Renal failure N19 Renal failure chronicity: chronic Acute hyperkalemia E87.5 Chronic antibiotic suppression Z79.2
--- NOTE | 2020-08-27 17:52 | PC.NURSE ---
ICU unable to take report at this time.
--- NOTE | 2020-08-27 18:28 | PC.NURSE ---
pt report called to Kodi RN in SBAR format.
[2020-08-27 19:20] LABS: Creatine Phosphokinase 152 U/L (26-192); Thyroid Stimulating Hormone 3.51 uIU/mL (0.27-4.20); Uric Acid 6.2 mg/dL (2.4-5.7)
--- NOTE | 2020-08-27 19:31 | W.ED.AMS ---
HPI - Altered Mental Status General: Chief Complaint: Altered Mental Status Stated Complaint: ALOC Time Seen by Provider: 08/27/20 11:37 Source: EMS Mode of arrival: EMS Limitations: altered mental status PFS ED PFSH: Medical History (Updated 08/27/20 @ 18:45 by Dallas Hendrickson MD) Cellulitis Chronic antibiotic suppression Chronic back pain Diabetes Diastolic heart failure H/O staphylococcal septicemia HTN (hypertension) Hyperglycemia Obesity TARA (obstructive sleep apnea) Renal failure RLS (restless legs syndrome) Staphylococcus epidermidis bacteremia Thyroid disease Surgical History Amputated great toe Arteriovenous fistula H/O: hysterectomy History of adenoidectomy History of appendectomy History of back surgery History of cholecystectomy History of tonsillectomy Family History Other Cancer Social History Smoking and tobacco status: never smoked Alcohol intake: never Lives independently: Yes Household members: spouse Housing: House Marital status: Procedures Lumbar Puncture Time Out Performed: Yes Patient Position: left lateral decubitus Skin Prep: Povidone-Iodine 1% Local Anesthetic: lidocaine 1% Amount of anesthesia used (mL): 10 Complications: unable to obtain CSF Procedural Sedation Presedation Evaluation: LP ASA Class: II Preparation: pulse oximeter Ketamine: IM Ketamine dose (mg): 500 IV Propofol dose (mg): 140 Patient Tolerated Procedure: well Complications: none Course Vital Signs: Vital signs: Vital Signs Temperature 98.6 F 08/27/20 11:30 Pulse Rate 99 08/27/20 17:02 Respiratory Rate 18 08/27/20 17:02 Blood Pressure 175/86 08/27/20 17:02 Pulse Oximetry 95 08/27/20 17:02 MDM - Altered Mental Status MDM Narrative: Medical decision making narrative: I attempted a lumbar puncture at the request of Dr. Hendrickson. I was unable to obtain her lumbar puncture due to her size. Patient was sedated with propofol she lost her IV so I did have her give her IM ketamine. She tolerated the sedation well. Lab Data: Labs: Lab Results 08/27/20 08/27/2008/27/20 Range/Units 12:17 12:17 12:17 WBC 8.8 (4.0-10.0) 10^3/ uL RBC 4.45 (4.1-5.3) 10^6/u L Hgb 11.3 L (11.5-15.3) g/dL Hct 37.1 (37.0-47.0) % MCV 83.4 (81-99) fL MCH 25.4 L (28.0-34.0) pg MCHC 30.5 (30.0-36.0) g/dL RDW 16.4 H (12.1-15.1) % Plt Count 219 (130-400) 10^3/c mm MPV 10.3 (7.4-10.4) fL Neut % (Auto) 94.5 % Lymph % (Auto) 4.6 % Hampton % (Auto) 0.6 % Eos % (Auto) 0.0 % Baso % (Auto) 0.1 % Neut # (Auto) 8.27 H (1.8-7.7) 10^3/u L Lymph # (Auto) 0.4 L (0.8-4.8) 10^3/u L Hampton # (Auto) 0.1 L (0.2-0.9) 10^3/u L Eos # (Auto) 0.0 (0.0-0.8) 10^3/u L Baso # (Auto) 0.0 (0.0-0.1) 10^3/u L Nucleated RBC % (a uto) 0 % Nucleated RBCs # 0.0 /100WBC PT 13.90 (12.1-14.9) SECO NDS INR 1.06 (0.8-1.2) Specimen Type Sample Site ABG pH (7.35-7.45) ABG pCO2 (35-45) mmHg ABG pO2 (80.0-100.0) mmH g ABG HCO3 (22-26) mmol/L ABG Base Excess (-2.0-2.0) mmol/ L Seun Test Hematocrit (37-47) % O2 Delivery Device O2 Liters/Min % FiO2 % Software Development Advisor ID Sodium 137 (136-145) mmol/L Potassium 6.1 H (3.5-5.1) mmol/L Chloride 102 (98-107) mmol/L Carbon Dioxide 19 L (22-29) mmol/L Anion Gap 22.1 H (5-19) BUN 40 H (8-23) mg/dL Creatinine 2.1 H (0.5-0.9) mg/dL GFR Calculation 23.9 L (90-130) mL/min Glucose 481 H (65-115) mg/dL Calculated Osmolal ity 315 H (285-295) mOsm/k g Calcium 9.1 (8.5-10.5) mg/dL Magnesium 2.0 (1.7-2.3) mg/dL Total Bilirubin 0.3 (0.15-1.2) mg/dL AST 16 (0-32) U/L ALT 14 (0-33) U/L Alkaline Phosphata se 153 H (35-105) IU/L Creatine Kinase (26-192) U/L Total Protein 7.4 (6.6-8.7) g/dL Albumin 3.9 (3.5-5.2) g/dL Globulin 3.5 (1.3-4.6) g/dL TSH (0.27-4.20) uIU/ mL Urine Color (Yellow) Urine Appearance (CLEAR) Urine pH (5-7) Ur Specific Gravit y (1.005-1.030) Urine Protein (Negative) Urine Glucose (UA) (Normal) Urine Ketones (Negative) Urine Blood (Negative) Urine Nitrate (Negative) Urine Bilirubin (Negative) Urine Urobilinogen (Negative) mg/dL Ur Leukocyte Staci ase (Negative) Urine RBC (0-2) /hpf Urine WBC (0-5) /hpf Ur Squamous Epith Cells (0-5) /hpf Amorphous Sediment Urine Bacteria (NONE) /hpf Ethyl Alcohol < 10 (0-10) mg/dL 08/27/20 08/27/20 08/27/20 Range/Units 12:17 13:00 13:27 WBC (4.0-10.0) 10^3/ uL RBC (4.1-5.3) 10^6/u L Hgb (11.5-15.3) g/dL Hct (37.0-47.0) % MCV (81-99) fL MCH (28.0-34.0) pg MCHC (30.0-36.0) g/dL RDW (12.1-15.1) % Plt Count (130-400) 10^3/c mm MPV (7.4-10.4) fL Neut % (Auto) % Lymph % (Auto) % Hampton % (Auto) % Eos % (Auto) % Baso % (Auto) % Neut # (Auto) (1.8-7.7) 10^3/u L Lymph # (Auto) (0.8-4.8) 10^3/u L Hampton # (Auto) (0.2-0.9) 10^3/u L Eos # (Auto) (0.0-0.8) 10^3/u L Baso # (Auto) (0.0-0.1) 10^3/u L Nucleated RBC % (a uto) % Nucleated RBCs # /100WBC PT (12.1-14.9) SECO NDS INR (0.8-1.2) Specimen Type Arterial Sample Site Radial, right ABG pH 7.37 (7.35-7.45) ABG pCO2 36.3 (35-45) mmHg ABG pO2 87.2 (80.0-100.0) mmH g ABG HCO3 20.8 L (22-26) mmol/L ABG Base Excess -4.0 L (-2.0-2.0) mmol/ L Seun Test Pos Hematocrit 35.7 L (37-47) % O2 Delivery Device Nc O2 Liters/Min 2.0 % FiO2 28.0 % Software Development Advisor ID Cak Sodium (136-145) mmol/L Potassium (3.5-5.1) mmol/L Chloride (98-107) mmol/L Carbon Dioxide (22-29) mmol/L Anion Gap (5-19) BUN (8-23) mg/dL Creatinine (0.5-0.9) mg/dL GFR Calculation (90-130) mL/min Glucose (65-115) mg/dL Calculated Osmolal ity (285-295) mOsm/k g Calcium (8.5-10.5) mg/dL Magnesium (1.7-2.3) mg/dL Total Bilirubin (0.15-1.2) mg/dL AST (0-32) U/L ALT (0-33) U/L Alkaline Phosphata se (35-105) IU/L Creatine Kinase 152 (26-192) U/L Total Protein (6.6-8.7) g/dL Albumin (3.5-5.2) g/dL Globulin (1.3-4.6) g/dL TSH 3.51 (0.27-4.20) uIU/ mL Urine Color Yellow (Yellow) Urine Appearance Clear (CLEAR) Urine pH 7 (5-7) Ur Specific Gravit y 1.005 (1.005-1.030) Urine Protein 3+ H (Negative) Urine Glucose (UA) 4+ H (Normal) Urine Ketones Negative (Negative) Urine Blood 2+ H (Negative) Urine Nitrate Negative (Negative) Urine Bilirubin Neg (Negative) Urine Urobilinogen Neg (Negative) mg/dL Ur Leukocyte Staci ase Negative (Negative) Urine RBC 10-15 H (0-2) /hpf Urine WBC 0-4 H (0-5) /hpf Ur Squamous Epith Cells 10-15 H (0-5) /hpf Amorphous Sediment Not Reportable Urine Bacteria Trace (NONE) /hpf Ethyl Alcohol (0-10) mg/dL Discharge Plan Discharge Patient Disposition: Admitted As Inpatient Admit Provider: Dallas Hendrickson Clinical Impression: Acute hyperkalemia, PRES (posterior reversible encephalopathy syndrome) Renal failure Qualifiers: Renal failure chronicity: chronic Altered mental status Qualifiers: Altered mental status type: unspecified Qualified Code(s): R41.82 - Altered mental status, unspecified Condition: Stable Referrals: Lexis Ring MD [Primary Care Provider] - Coding Level of Care Code ED Integration Software Developer for [facility]
[2020-08-27] MEDS: propofol 10 mg/mL SDV 20 mL 100 MG IVP (19:51)
[2020-08-27 19:56] LABS: Hepatitis B Surface AB 3.5 (0-8.5); Hepatitis B Surface Antigen Non-Reactive (Nonreactive); Hepatitis C Virus Antibody Non-Reactive (Nonreactive)
--- NOTE | 2020-08-27 20:10 | PC.NURSE ---
Admit Note Arrived to ICU via ER stephen at this time. Pt is sedated and occasionally yells out. Nurse reports patient was very confused and restless pre-sedation. Arrived on 2L NC. Breathing is even and non-labored. Pupils are equal dilated and slugglish, size 6. Seizure and fall precautions in place. Lung sounds diminished and clear. 1+pitting edema to BLE. Right 4th toe recently amputated. Dressing was taken off for assessment. Well approximated with small amount of yellow drainage. Left great toe has small blood blister that is intact. 1:1 sitter at bedside. Dialysis nurse at bedside, obtained consent via [facility] over the phone for dialysis.
--- NOTE | 2020-08-27 20:16 | PC.NURSE ---
Obtained informed consent for lumbar puncture via phone from pt spouse Félix Pierce. lumbar puncture preformed by Dr. Christianson. procedure was unsuccessful.
--- NOTE | 2020-08-27 20:30 | PC.NURSE ---
Dialysis Bedside dialysis now in progress.
[2020-08-27 20:47] LABS: Erythrocyte Sedimentation Rate 52 mm/hr (0-15)
--- NOTE | 2020-08-27 21:01 | PC.NURSE ---
Mental Status Pt now opens eye spontaneously. Becoming more verbal and tearful. Remains confused and agitated. Pt repetitively saying where am i I don't wanna after multiple attempts to reorient and redirect pt. Pt does follow commands with hand ticket manager. Reduced environmental stimuli. 1:1 sitter at bedside. Dialysis in progress.
[2020-08-27] MEDS: esmolol drip 2,500 MG/250 ML PREMIX 40.8 MG IV (21:17)
[2020-08-27 21:59] LABS: Glucose Point of Care 324 mg/dL (70-110)
[2020-08-27 22:16] LABS: Glucose Point of Care 202 mg/dL (70-110)
[2020-08-27] MEDS: cefTRIAXone 2,000 MG in sodium chloride 0.9% (plus) 50 ML 100 MG IV (22:37)
[2020-08-27 23:15] LABS: C Reactive Protein 10.6 mg/L (0.0-4.9)
--- NOTE | 2020-08-27 23:20 | PC.NURSE ---
IV medications Delayed due to dialysis. Retimed antibiotics and anticonvulsants for after dialysis.
[2020-08-27] MEDS: ampicillin 2,000 MG in sodium chloride 0.9% (plus) 50 ML 100 MG IV (23:25)
[2020-08-28] VITALS (71 sets, daily range): BP systolic 98–173; BP diastolic 48–128; PULSE 49–107; RESP 10–29; TEMP 36.5–37.2; O2SAT 86–100
[2020-08-28] MEDS: esmolol drip 2,500 MG/250 ML PREMIX 102.1 MG IV (00:06)
[2020-08-28] MEDS: LORazepam 2 mg/mL INJ 1 mL 1 MG IVP (01:11)
--- NOTE | 2020-08-28 01:11 | PC.NURSE ---
Agitation/AMS Pt agitated, confused, and restless. Unable to keep patient on monitor, keeps taking off BP cuffs and making multiple attempts to get out of bed. Redirection and reorientation ineffective. Reduced environmental stimuli. 1:1 sitter remains at bedside. Ativan 1mg IV given at this time.
--- NOTE | 2020-08-28 01:53 | PC.NURSE ---
N.O. obtained C/O of severe VALENCIA, Dr. Pink notifed of complaint, pt on dialysis and currently has esomolol running, received the following order Morphine 1mg IV 1X PRN Pain
[2020-08-28] MEDS: morphine 4 mg/mL SDV 1 mL 1 MG IVP (02:15)
--- NOTE | 2020-08-28 02:20 | PC.NURSE ---
Agitation Pt increasingly agitated, restless making multiple attempts to get out of bed. Pt pulling at tubes and lines. Pt disoriented, thinks she is at home. Oriented to birthday. Unable to keep patient on monitor or get BP's, pt continues to be on esmolol gtt. Pt does not follow safety commands, yelling and cursing at staff. 3 nurses at beside trying to keep patient safe. Dr. Pikn notified and received orders for non-violent wrist restraints and 2mg haldol IM.
[2020-08-28] MEDS: haloperidol inj 5 mg/mL INJ 1 mL 2 MG IM (02:27)
[2020-08-28] MEDS: esmolol drip 2,500 MG/250 ML PREMIX 81.6 MG IV (02:45)
--- NOTE | 2020-08-28 02:55 | PC.NURSE ---
Family Updated Félix Pierce notified via phone for update on confusion, behavior, and agitation. Educated on use of soft wrist restraints and use of medications, all questions were answered. Notified him of visiting hours.
[2020-08-28] MEDS: OLANZapine 10 mg VIAL 5 MG IM (03:14)
--- NOTE | 2020-08-28 03:33 | PC.NURSE ---
Pt in room screaming and cussing, kicking legs, patient trying to bite off wrist restraints and attempting to bite fingers. 1:1 sitter remains at bedside. Pt believes she is at home and her has her held hostage. Zyprexa ineffective. Dr. Pink notified again via phone and received orders for precedex drip.
[2020-08-28] MEDS: dexmedetomidine 400 MCG in sodium chloride 0.9% (100 ml) 100 ML IV (04:04)
[2020-08-28] MEDS: heparin 5,000 unit/mL INJ 1 mL 5000 UNIT SUBCUT ×2 (04:56→15:55)
[2020-08-28 05:16] LABS: Basophils % 0.2 %; Hematocrit 35.6 % (37.0-47.0); Hemoglobin 11.1 g/dL (11.5-15.3); Lymphocytes # 1.4 10^3/uL (0.8-4.8); Lymphocytes % 9.8 %; Mean Corpuscular HGB Conc 31.2 g/dL (30.0-36.0); Mean Corpuscular Hemoglobin 26.2 pg (28.0-34.0); Mean Corpuscular Volume 84.2 fL (81-99); Mean Platelet Volume 10.7 fL (7.4-10.4); Monocytes # 0.7 10^3/uL (0.2-0.9); Monocytes % 4.7 %; Neutrophils # 12.23 10^3/uL (1.8-7.7); Neutrophils % 84.8 %; Nucleated Red Blood Cells % 0 %; Platelet Count 233 10^3/cmm (130-400); Red Blood Count 4.23 10^6/uL (4.1-5.3); Red Cell Distribution Width 16.9 % (12.1-15.1); White Blood Count 14.4 10^3/uL (4.0-10.0)
[2020-08-28 05:38] LABS: Alanine Aminotransferase 15 U/L (0-33); Albumin Level 3.9 g/dL (3.5-5.2); Alkaline Phosphatase 130 IU/L (35-105); Blood Urea Nitrogen 25 mg/dL (8-23); Calcium 8.8 mg/dL (8.5-10.5); Carbon Dioxide 23 mmol/L (22-29); Chloride 103 mmol/L (98-107); Globulin 3.4 g/dL (1.3-4.6); Glomerular Filtration Rate 30.5 mL/min (90-130); Glucose 230 mg/dL (65-115); Osmolality Calculated 300 mOsm/kg (285-295); Phosphorus 4.6 mg/dL (2.5-4.5); Sodium 139 mmol/L (136-145); Total Bilirubin 0.3 mg/dL (0.15-1.2); Total Protein 7.3 g/dL (6.6-8.7)
[2020-08-28 05:39] LABS: Aspartate Amino Transferase 24 U/L (0-32)
[2020-08-28 06:01] LABS: Calcium 9.3 mg/dL (8.5-10.5); Parathyroid Hormone 232.1 pg/mL (15-65)
[2020-08-28] MEDS: esmolol drip 2,500 MG/250 ML PREMIX 61.2 MG IV (06:48)
--- NOTE | 2020-08-28 06:52 | PC.NURSE ---
Behavior 0430 pt attempted to bite this nurse during lab draw
[2020-08-28 08:09] LABS: Glucose Point of Care 238 mg/dL (70-110)
[2020-08-28 08:54] LABS: Amphetamines Screen Urine Negative (Negative); Barbiturates Screen Urine Negative (Negative); Benzodiazepines Screen Urine Negative (Negative); Cocaine Screen Urine Negative (Negative); Opiate Screen Urine Positive (Negative); PCP Screen Urine Negative (Negative); THC Screen Urine Negative (Negative)
--- NOTE | 2020-08-28 09:03 | XR_ITS ---
WS: [id number] Portable AP semiupright chest, 08/28/2020 Clinical Data: assess for any signs of aspiration Comparison: Portable chest, 08/27/2020 Findings: The patient has a poor inspiratory effort. The right lung has developed consolidation, herbert cially in the right upper lobe. The heart is enlarged. No nodules, masses or effusions are seen. The aortic arch is tortuous. The patient has had a posterior lumbar fusion of the lower thoracic vertebra l bodies. Monitor leads are on the chest wall. XR/XR chest 1V portable [id number] Impression: 1. Development of right upper lobe and right lower lobe consolidation which may represent pneumonia. 2. Cardiomegaly and atherosclerosis. 3. Poor inspiratory effort and recommend repeat chest x-ray in one to 2 days.
--- NOTE | 2020-08-28 09:09 | PM.PN ---
Subjective Subjective: Interval history: Still confused. Overnight started on Precedex drip. This morning blood pressure systolic 117. As well drip was shut off. She is obtunded. Vitals/I&O/Wt Last Vital Signs Temp 98.6 F 08/28/20 07:45 Pulse 61 08/28/20 08:56 Resp 28 H 08/28/20 08:30 BP 117/54 08/28/20 08:30 Pulse Ox 97 08/28/20 08:56 08/27/20 08/28/20 08/28/20 22:59 06:59 14:59 Intake Total 64.26 / 64.26 898.78 / 963.04 79.22 / 79.22 Output Total 270 / 270 Balance 64.26 / 64.26 628.78 / 693.04 79.22 / 79.22 Weight last 48 hrs Weight 127.958 kg Weight 136.078 kg Physical Exam Const: COMMON NORMALS: no acute distress EXAM LIMITATIONS: altered mental status GENERAL APPEARANCE: not cooperative ORIENTATION/CONSCIOUSNESS: Yes oriented to person and Yes patient obtunded; not oriented to place and not oriented to time HENMT: COMMON NORMALS: oropharynx normal Eye: COMMON NORMALS: Equal, round and reactive pupils present PUPIL: Yes Equal, round and reactive pupils present Neck/C-Spine: COMMON NORMALS: no JVD Resp: COMMON NORMALS: normal respiratory effort and clear to auscultation bilaterally AUSCULTATION: clear to auscultation bilaterally and bronchial breath sounds Cardio: COMMON NORMALS: no JVD, regular rhythm, S1 normal heart sound present, S2 normal heart sound present and No murmurs present (Cardio) RATE: tachycardic RHYTHM: regular rhythm HEART SOUNDS: S1 normal heart sound present and S2 normal heart sound present GI: COMMON NORMALS: Normal to inspection, nondistended, normoactive bowel sounds present, Soft to palpation and non-tender PALPATION: Yes Soft to palpation Extremity: COMMON NORMALS: no joint enlargement and no pedal edema NARRATIVE EXTREMITY EXAM: Great toe amputation debridement, on the R, 4th digit amputation. Neuro: COMMON NORMALS: moves all extremities SENSORIUM/ORIENTATION: Yes oriented to person, No oriented to place and No oriented to time SPEECH: speech normal (But very confused, only able to tell me her name, does not answer any other questions.) MOTOR EXAM: 5/5 motor strength present throughout Skin: COMMON NORMALS: no rashes or lesions noted GENERAL SKIN EXAM: no rashes or lesions noted Urinary Catheter Management^: Tejada: Cath Placed During This Visit: yes Reason for Continuing Indwelling Catheter: Accurate Measurement of Urinary Output in Critically Ill Patients Urinary Catheter Date of Insertion: 08/27/20 Urinary Catheter Time of Insertion: 21:30 Data : 08/28/20 04:44 08/28/20 04:44 A&P Assessment and plan (1) Acute encephalopathy: LP attempted last night but could not be obtained. This morning blood pressure is better. Esmolol drip shut off this morning. She did receive hemodialysis yesterday. However, still with altered mental status. Obtunded. Sluggish pupil response, although currently on Precedex. Light does appear to bother her, turns away. Appears to withdraw from pain. Mental status worse today. Repeat CT head. We will try to obtain LP with fluoroscopy guidance by radiology. EEG. Leukocytosis today, check chest x-ray. Lungs sound clear. Continue empiric anti-infective agents, continue empiric anticonvulsant. Continue supportive care. As per discussion with neurology empiric antiepileptic coverage. Plan for outpatient EEG and follow-up with neurology. ESR, CRP, BEREKET, ANCA One-to-one sitter. Ativan as needed if severe agitation. Seizure precautions. N.p.o. ICU Status: Acute (2) Hypertensive emergency: Resolved. As above. Possible residual encephalopathy due to pres syndrome, versus infectious or other encephalopathy as above. Status: Acute (3) Seizure: Secondary to likely PRES, hypertensive emergency, but additional work-up as above. Status: Acute (4) Renal failure: Received hemodialysis last night. Chronic renal failure, ESRD, has been on and off hemodialysis depending on her renal function, and last hemodialysis is been over 2 weeks ago per . He does state that he has had previous episodes of confusion prior to needing to resume dialysis. Appreciate nephrology assessment and recommendations. Status: Acute Qualifiers: Renal failure chronicity: chronic (5) Acute hyperkalemia: Improved with dialysis. 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 Obtain records from Dr. Crowe's office with regards to which medication she is chronically taking. does not remember and she appears to have several different antibiotics listed including Augmentin, Keflex, Bactrim (although Bactrim also listed under allergy, per apparently was told that sometimes needs to take it ). Status: Acute Additional A&P Information Chronic alk phos elevation Dirty urine sample Recent osteomyelitis of R 4th toe: Status post amputation, says recently completed course of IV antibiotic (about 2 weeks ago) Diabetes: is not sure how much insulin she is taking. For now we will start on sliding scale insulin. Medication dose will need to be obtained. She is for now n.p.o. TARA: She is supposed to be using nightly CPAP, but has not been using it at home, her CPAP is missing parts. says that she does not tolerate things over her face. Currently due to confusion, agitation hold off on CPAP. Resume once she is able to. Discussed with and encouraged him to get the home CPAP functioning again, as untreated ATRA will predispose her again to episodes of hypertension which should be avoided in her case as much as possible. RLS: was not sure if maybe she might take more than usual medications for RLS as he says she gets very severe symptoms, although has never actually observed her taking extra medications. For now oral medications are on hold. Hypothyroidism Urinary incontinence CHF, history of diastolic HLD Obesity Chronic back pain: says not infrequently sits at the edge of the bed to sleep Other chronic medical conditions noted. Attestations Medical Necessity Statement*: Continue admission for assessment of management of acute encephalopathy. Coding Level of Care Code Acute Home Health Provider for Aimee Gonzalez Diagnoses Acute encephalopathy G93.40 Hypertensive emergency I16.1 Seizure R56.9 Renal failure N19 Renal failure chronicity: chronic Acute hyperkalemia E87.5 Chronic antibiotic suppression Z79.2
--- NOTE | 2020-08-28 09:11 | CT_ITS ---
WS: [id number] CT scan of the head, 08/28/2020 Clinical Data: AMS Comparison: None. DLP: 1261.[address] scans at [facility] use at least one of these dose optimization techniques: automat ed exposure control; mA and/or kV adjustment per patient size (includes targeted exams where dose is matched to clinical indication); or iterative reconstruction. Findings: The ventricular system is normal without shift. No recent infarct or hemorrhage is seen. There are no abnormal intracerebral masses. The cerebellum and brainstem are not remarkable. The symmetric physics technician ior areas of decreased attenuation in the parieto-occipital regions are no longer present. There are areas of low attenuation in the right frontal lobe adjacent to the vertex are still present but have not changed. Bony windows of the skull and skull base show no fractures or erosions. The mastoid air cells, restaurant management internship al auditory canals, sella turcica, intraorbital contents, and paranasal sinuses show only minimal muc operiosteal thickening in the sphenoid sinuses. CT/CT head wo con* [id number] Impression: 1. Negative for acute hemorrhage or infarct. 2. White matter edema has decreased especially in the occipital and posterior p arietal regions.
[2020-08-28] MEDS: cefTRIAXone 2,000 MG in sodium chloride 0.9% (plus) 50 ML 100 MG IV ×2 (10:56→21:45)
[2020-08-28 11:37] LABS: Glucose Point of Care 196 mg/dL (70-110)
--- NOTE | 2020-08-28 12:34 | P.PN_ITS ---
Subjective Subjective: Interval history: remains very confused today, ie dialysis didn't help to bring her out of this fog urine output remains very poor at 270mL yesterday minimal edema and no maintaining O2 sat on 2L nasal cannula AVF working well Vitals/I&O/Wt Last Vital Signs Temp 98.6 F 08/28/20 07:45 Pulse 61 08/28/20 08:56 Resp 28 H 08/28/20 08:30 BP 117/54 08/28/20 08:30 Pulse Ox 97 08/28/20 08:56 08/27/20 08/28/20 08/28/20 22:59 06:59 14:59 Intake Total 64.26 / 64.26 898.78 / 963.04 79.22 / 79.22 Output Total 270 / 270 Balance 64.26 / 64.26 628.78 / 693.04 79.22 / 79.22 Weight last 48 hrs Weight 127.958 kg Weight 136.078 kg Physical Exam Narrative: EXAM NARRATIVE: Constitutional: Confused HEENT: Wet mucosa, no jvp, non icteric Lungs: Bilaterally clear without discernible wheeze, rales in all lung zones CVS: S1 S2, no murmurs Abdo: Soft, BS ok Ext 4: Minimal edema, peripheral perfusion with no cyanosis Neurological: Grossly non-focal Urinary Catheter Management^: Tejada: Cath Placed During This Visit: yes Reason for Continuing Indwelling Catheter: Accurate Measurement of Urinary Output in Critically Ill Patients Urinary Catheter Date of Insertion: 08/27/20 Urinary Catheter Time of Insertion: 21:30 Data : 08/28/20 04:44 08/28/20 04:44 Micro: Microbiology 08/28/20 09:28 Blood Culture - Preliminary Blood SPECIMEN COLLECTED 08/28/20 09:31 Blood Culture - Preliminary Blood SPECIMEN COLLECTED A&P Additional A&P Information 1. Renal failure - history of advanced CKD with prep for dialysis - dialyzed yesterday - low creatinine but oliguric indication very poor GFR - will plan on dialysis tomorrow; 2K, UF 2L - unless there is a rapid turnaround of renal function it is likely that she is now ESRD - am labs - dose meds for eGFR < 15 on dialysis 2. Lytes look good 3. Hemodynamics - look better, Esmolol infusion now stopped 4. Encephalopathy - I doubt uremia is playing a significant role, otherwise we would have seen more of a recovery after dialysis tomorrow - CT head with white matter changes, possible cerebritis, vasculitis, PRES - LP ouldn't be done - BEREKET and reflex, conmplements sent - will add ANCA Attestations Medical Necessity Statement*: eval for renal failure Coding Level of Care Code Acute Systems Design Engineer for Aimee Gonzalez
[2020-08-28 17:26] LABS: Glucose Point of Care 153 mg/dL (70-110)
--- NOTE | 2020-08-28 23:07 | PC.NURSE ---
Mental status pt has been somulent since shift change. Pt does open eyes to verbal commands and purses eyes closed when assessing pupils. neuro assessment is limited. When assessing or caring for pt will leave me alone and turns away and withdrawls from nurse. Confusion is still observed. Pt is not cooperative and will not follow commands.
[2020-08-28 23:55] LABS: Glucose Point of Care 128 mg/dL (70-110)
[2020-08-29] VITALS (34 sets, daily range): BP systolic 123–190; BP diastolic 48–118; PULSE 59–85; RESP 14–30; TEMP 36.4–37.3; O2SAT 92–99
[2020-08-29] MEDS: ampicillin 2,000 MG in sodium chloride 0.9% (plus) 50 ML 100 MG IV (01:42)
--- NOTE | 2020-08-29 02:08 | PC.NURSE ---
Restraints Bilateral soft wrist restraints removed at this time. Pt is awake, remains confused but is calm and cooperative. Mental status has improved, oriented to birthday and held lengthy conversation about her children, grandchildren, [place], and her past job.
[2020-08-29] MEDS: heparin 5,000 unit/mL INJ 1 mL 5000 UNIT SUBCUT ×2 (05:03→15:53)
[2020-08-29 05:35] LABS: Basophils # 0.1 10^3/uL (0.0-0.1); Basophils % 0.8 %; Eosinophils # 0.4 10^3/uL (0.0-0.8); Eosinophils % 4.7 %; Hematocrit 34.9 % (37.0-47.0); Hemoglobin 10.3 g/dL (11.5-15.3); Lymphocytes # 1.5 10^3/uL (0.8-4.8); Mean Corpuscular HGB Conc 29.5 g/dL (30.0-36.0); Mean Corpuscular Hemoglobin 26.3 pg (28.0-34.0); Mean Corpuscular Volume 89.3 fL (81-99); Mean Platelet Volume 10.5 fL (7.4-10.4); Monocytes # 0.4 10^3/uL (0.2-0.9); Monocytes % 5.6 %; Neutrophils # 5.24 10^3/uL (1.8-7.7); Neutrophils % 68.6 %; Nucleated Red Blood Cells % 0 %; Platelet Count 169 10^3/cmm (130-400); Red Blood Count 3.91 10^6/uL (4.1-5.3); Red Cell Distribution Width 17.4 % (12.1-15.1); White Blood Count 7.6 10^3/uL (4.0-10.0)
[2020-08-29 06:04] LABS: Alanine Aminotransferase 12 U/L (0-33); Albumin Level 3.4 g/dL (3.5-5.2); Alkaline Phosphatase 109 IU/L (35-105); Anion Gap 16.3 (5-19); Aspartate Amino Transferase 14 U/L (0-32); Blood Urea Nitrogen 35 mg/dL (8-23); Calcium 8.8 mg/dL (8.5-10.5); Carbon Dioxide 23 mmol/L (22-29); Chloride 106 mmol/L (98-107); Glomerular Filtration Rate 17.9 mL/min (90-130); Glucose 110 mg/dL (65-115); Magnesium 2.1 mg/dL (1.7-2.3); Osmolality Calculated 301 mOsm/kg (285-295); Phosphorus 4.8 mg/dL (2.5-4.5); Potassium 4.3 mmol/L (3.5-5.1); Sodium 141 mmol/L (136-145); Total Bilirubin 0.2 mg/dL (0.15-1.2); Total Protein 6.4 g/dL (6.6-8.7)
--- NOTE | 2020-08-29 06:35 | PC.NURSE ---
Reported having a BM, but refused to allow this nurse to clean up BM until reaching by phone, unable to reach at this time
[2020-08-29 08:26] LABS: Glucose Point of Care 114 mg/dL (70-110)
[2020-08-29] MEDS: labetalol 5 mg/mL SDV 20mL 10 MG IVP (08:50)
--- NOTE | 2020-08-29 10:04 | P.PN_ITS ---
Subjective Subjective: Interval history: She is now awake, alert this morning. She reports that she is having generalized headache which is been going on for 4-5 days. She is oriented x3. She does not remember anything beyond feeling unwell in the shower. Discussed with her her condition on presentation as well as her hospitalization. She denies having any other discomfort, states that she is feeling thirsty and would like something to drink. She otherwise denies any vision changes, no nausea, denies any chest pain or pressure. Vitals/I&O/Wt Last Vital Signs Temp 98.6 F 08/29/20 08:00 Pulse 70 08/29/20 10:00 Resp 16 08/29/20 10:00 BP 156/49 08/29/20 10:00 Pulse Ox 96 08/29/20 10:00 08/28/20 08/29/20 08/29/20 22:59 06:59 14:59 Intake Total 50 / 160.895 Output Total 75 / 175 290 / 465 350 / 350 Balance -25 / -14.105 -290 / -304.105 -350 / -350 Weight last 48 hrs Weight 127.097 kg Weight 127.958 kg Weight 136.078 kg Physical Exam Const: COMMON NORMALS: no acute distress and patient oriented x3 EXAM LIMITATIONS: altered mental status GENERAL APPEARANCE: not cooperative NUTRITIONAL APPEARANCE: obese ORIENTATION/CONSCIOUSNESS: Yes awake and Yes oriented to person; not oriented to place and not oriented to time OTHER: Mood is irritable. HENMT: COMMON NORMALS: oropharynx normal Eye: COMMON NORMALS: Equal, round and reactive pupils present PUPIL: Yes Equal, round and reactive pupils present Neck/C-Spine: COMMON NORMALS: no JVD Resp: COMMON NORMALS: normal respiratory effort and clear to auscultation bilaterally AUSCULTATION: clear to auscultation bilaterally Cardio: COMMON NORMALS: no JVD, regular rhythm, S1 normal heart sound present, S2 normal heart sound present and No murmurs present (Cardio) RATE: tachycardic RHYTHM: regular rhythm HEART SOUNDS: S1 normal heart sound present and S2 normal heart sound present GI: COMMON NORMALS: Normal to inspection, nondistended, normoactive bowel sounds present, Soft to palpation and non-tender PALPATION: Yes Soft to palpation Extremity: COMMON NORMALS: no joint enlargement and no pedal edema NARRATIVE EXTREMITY EXAM: Great toe amputation debridement, on the R, 4th digit amputation. Neuro: COMMON NORMALS: patient oriented x3 and moves all extremities SENSORIUM/ORIENTATION: Yes oriented to person, No oriented to place and No oriented to time SPEECH: speech normal (But very confused, only able to tell me her name, does not answer any other questions.) MOTOR EXAM: 5/5 motor strength present throughout Skin: COMMON NORMALS: no rashes or lesions noted GENERAL SKIN EXAM: no rashes or lesions noted Urinary Catheter Management^: Tejada: Cath Placed During This Visit: yes Reason for Continuing Indwelling Catheter: Accurate Measurement of Urinary Output in Critically Ill Patients Urinary Catheter Date of Insertion: 08/27/20 Urinary Catheter Time of Insertion: 21:30 Data : 08/29/20 05:03 08/29/20 05:03 Micro: Microbiology 08/28/20 09:28 Blood Culture - Preliminary Blood NEGATIVE TO DATE 08/28/20 09:31 Blood Culture - Preliminary Blood NEGATIVE TO DATE A&P Assessment and plan (1) Acute encephalopathy: Mental status is significantly improved. Discussed with her her hospitalization so far. Her blood pressures have improved, but today appears to be trending up again. This morning up to 183/76. Requested for a dose of labetalol. As she is not awake she will be able to take some oral medications as well. I do not think that clonidine is a good option for her going forward given severe elevation of blood pressure and risk of rebound hypertension, as well as encephalopathy possibly secondary to PRES. Resume metoprolol. Continue to monitor blood pressures. At this time continue empiric anticonvulsant coverage. For now we will continue with antibiotics and acyclovir. Continue to monitor in ICU for resolution of encephalopathy. She has been bending transfer to [facility], however, discussed with her if she continues to improve may not require transfer, and potentially may able to discharge within several days and follow-up in outpatient clinic with corresponding subspecialists including her industrial locomotive operator, ID physician, and with neurology. She is agreeable. Attempted to update regarding her condition, but could not reach him. ESR, CRP, BEREKET, ANCA Can DC One-to-one sitter. Ativan as needed if severe agitation. Seizure precautions. ICU Resume PO diet. Status: Acute (2) Hypertensive emergency: Resolved. Optimize HTN. Would not continue clonidine. Status: Acute (3) Seizure: Secondary to likely PRES, hypertensive emergency, but additional work-up as above. Continue Keppra. To be weaned off by neurology in office. Status: Acute (4) Renal failure: Appreciate nephrology recommendations. Chronic renal failure, ESRD, has been on and off hemodialysis depending on her renal function, and last hemodialysis is been over 2 weeks ago per . He does state that he has had previous episodes of confusion prior to needing to resume dialysis. Continue follow-up with nephrology in office in [place]. Status: Acute Qualifiers: Renal failure chronicity: chronic (5) Acute hyperkalemia: Improved with hemodialysis. 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 Obtain records from Dr. Crowe's office with regards to which medication she is chronically taking. does not remember and she appears to have several different antibiotics listed including Augmentin, Keflex, Bactrim (although Bactrim also listed under allergy, per apparently was told that sometimes needs to take it ). She says the Augmentin was prescribed for her recently after her dog rotation. She says she does not take Bactrim on a regular basis. 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 She cannot exactly recall the name of the antibiotic that she takes, but will try to see if can get in touch with her husb and and if he can go through her medications at home. We have not yet received any records from her ID physician's office. Status: Acute Additional A&P Information Chronic alk phos elevation Dirty urine sample Recent osteomyelitis of R 4th toe: Status post amputation, says recently completed course of IV antibiotic (about 2 weeks ago). Says that Augmentin was prescribed for this. Diabetes: is not sure how much insulin she is taking. For now we will start on sliding scale insulin. Medication dose will need to be obtained. She is for now n.p.o. TARA: She is supposed to be using nightly CPAP, but has not been using it at home, her CPAP is missing parts. says that she does not tolerate things over her face. Currently due to confusion, agitation hold off on CPAP. Resume once she is able to. Discussed with and encouraged him to get the home CPAP functioning again, as untreated TARA will predispose her again to episodes of hypertension which should be avoided in her case as much as possible. RLS: was not sure if maybe she might take more than usual medications for RLS as he says she gets very severe symptoms, although has never actually observed her taking extra medications. Medications have been held so far due to encephalopathy. If mental status remains good may be will to resume. Hypothyroidism Urinary incontinence CHF, history of diastolic HLD Obesity Chronic back pain: says not infrequently sits at the edge of the bed to sleep Other chronic medical conditions noted. Attestations Medical Necessity Statement*: Continue admission for assessment of management of acute encephalopathy, optimization of blood pressure control, optimization and monitoring of her renal function in the setting of multiple comorbidities. Coding Level of Care Code Acute Apartment Maintenance Worker for [facility] Fwd Exam Comprehensive Diagnoses Acute encephalopathy G93.40 Hypertensive emergency I16.1 Seizure R56.9 Renal failure N19 Renal failure chronicity: chronic Acute hyperkalemia E87.5 Chronic antibiotic suppression Z79.2
[2020-08-29] MEDS: cefTRIAXone 2,000 MG in sodium chloride 0.9% (plus) 50 ML 100 MG IV ×2 (10:44→21:57)
[2020-08-29 11:10] LABS: Glucose Point of Care 118 mg/dL (70-110)
[2020-08-29] MEDS: metoprolol tartrate 50 mg Tablet PO ×2 (11:19→18:24)
[2020-08-29] MEDS: duloxetine 30 mg Capsule PO (11:19)
--- NOTE | 2020-08-29 11:25 | P.PN_ITS ---
Subjective Subjective: Interval history: Much more lucid today. Requesting to hold off dialysis. No uremic Sx. Bp much better controlled. No edema and no other volume related Sx. Vitals/I&O/Wt Last Vital Signs Temp 98.6 F 08/29/20 08:00 Pulse 70 08/29/20 10:00 Resp 16 08/29/20 10:00 BP 156/49 08/29/20 10:00 Pulse Ox 96 08/29/20 10:00 08/28/20 08/29/20 08/29/20 22:59 06:59 14:59 Intake Total 100 / 210.895 Output Total 75 / 175 290 / 465 350 / 350 Balance 25 / 35.895 -290 / -254.105 -350 / -350 Weight last 48 hrs Weight 127.097 kg Weight 127.958 kg Weight 136.078 kg Physical Exam Narrative: EXAM NARRATIVE: Constitutional: awake, conversant HEENT: Wet mucosa, no jvp, non icteric Lungs: Bilaterally clear without discernible wheeze, rales in all lung zones CVS: S1 S2, no murmurs Abdo: Soft, BS ok Ext 4: Minimal edema, peripheral perfusion with no cyanosis Neurological: Grossly non-focal Urinary Catheter Management^: Tejada: Cath Placed During This Visit: yes Reason for Continuing Indwelling Catheter: Accurate Measurement of Urinary Output in Critically Ill Patients Urinary Catheter Date of Insertion: 08/27/20 Urinary Catheter Time of Insertion: 21:30 Data : 08/29/20 05:03 08/29/20 05:03 Micro: Microbiology 08/28/20 09:28 Blood Culture - Preliminary Blood NEGATIVE TO DATE 08/28/20 09:31 Blood Culture - Preliminary Blood NEGATIVE TO DATE A&P Additional A&P Information 1. Renal failure - history of advanced CKD with prep for dialysis - dcreatinine increasing, but UO is a little better - will hold dialysis per her request over the weekend and monitor closely - am labs - dose meds for eGFR < 15 on dialysis 2. Lytes look good 3. Hemodynamics - look better, Esmolol infusion now stopped 4. 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
[2020-08-29] MEDS: acetaminophen 325 mg Tablet 650 MG PO (12:22)
[2020-08-29] MEDS: levothyroxine 25 mcg Tablet PO (12:23)
[2020-08-29] MEDS: HYDROcodone-acetaminophen 5-325 mg Tablet 1 TAB PO ×2 (13:50→21:57)
[2020-08-29 16:15] LABS: Glucose Point of Care 194 mg/dL (70-110)
--- NOTE | 2020-08-29 20:00 | PC.NURSE ---
Report called to [facility] at this time.
--- NOTE | 2020-08-29 20:21 | PC.NURSE ---
Pt transferred to cardiac stepdown room 102 by wheelchair at this time. All belongings sent with patient.
[2020-08-29 21:12] LABS: Glucose Point of Care 282 mg/dL (70-110)
--- NOTE | 2020-08-29 23:12 | PC.NURSE ---
PT ARRIVED TO ROOM 102 FROM ICU. PT DENIES PAIN. PT ORIENTATED TO ROOM. WILL CONTINUE TO MONITOR.
[2020-08-30 03:02] VITALS: BP 198/80; PULSE 63; RESP 14; TEMP 36.6; O2SAT 96
[2020-08-30] MEDS: HYDROcodone-acetaminophen 5-325 mg Tablet 1 TAB PO ×3 (04:17→22:27)
[2020-08-30] MEDS: heparin 5,000 unit/mL INJ 1 mL 5000 UNIT SUBCUT ×2 (04:17→16:09)
--- NOTE | 2020-08-30 04:21 | PC.NURSE ---
PT HAS C/O HEAD ACHE MOST OF THE NIGHT. PT IS UPSET AND DOESN'T WANT TO BE HERE. PT ON THE PHONE WITH HER AND IS WANTING HIM TO COME GET HER. PT WAS UPSET EARLIER DURING A RAPID RESPONSE BECAUSE PT THOUGHT THAT OTHER PT WAS ALLOWED FAMILY. PT TRIED MANIPULATING STAFF TO ALLOW VISITORS. PRN NORCO WAS GIVEN 2X FOR HEAD ACHE. PT WASN'T COMFORTABLE IN THE BED AND HAS BEEN UP IN CHAIR. WILL CONTINUE TO MONITOR.
[2020-08-30 05:33] LABS: Basophils % 0.6 %; Eosinophils # 0.4 10^3/uL (0.0-0.8); Hematocrit 35.7 % (37.0-47.0); Hemoglobin 10.5 g/dL (11.5-15.3); Lymphocytes # 1.4 10^3/uL (0.8-4.8); Lymphocytes % 18.9 %; Mean Corpuscular HGB Conc 29.4 g/dL (30.0-36.0); Mean Corpuscular Hemoglobin 25.3 pg (28.0-34.0); Mean Platelet Volume 11.3 fL (7.4-10.4); Monocytes # 0.6 10^3/uL (0.2-0.9); Monocytes % 8.1 %; Neutrophils # 4.84 10^3/uL (1.8-7.7); Neutrophils % 67.1 %; Nucleated Red Blood Cells % 0 %; Platelet Count 186 10^3/cmm (130-400); Red Blood Count 4.15 10^6/uL (4.1-5.3); Red Cell Distribution Width 17.1 % (12.1-15.1); White Blood Count 7.2 10^3/uL (4.0-10.0)
[2020-08-30 05:55] LABS: Alanine Aminotransferase 13 U/L (0-33); Albumin Level 3.6 g/dL (3.5-5.2); Alkaline Phosphatase 117 IU/L (35-105); Anion Gap 15.8 (5-19); Aspartate Amino Transferase 13 U/L (0-32); Blood Urea Nitrogen 38 mg/dL (8-23); Calcium 8.5 mg/dL (8.5-10.5); Carbon Dioxide 23 mmol/L (22-29); Chloride 104 mmol/L (98-107); Globulin 3.1 g/dL (1.3-4.6); Glomerular Filtration Rate 20.5 mL/min (90-130); Glucose 224 mg/dL (65-115); Magnesium 2.1 mg/dL (1.7-2.3); Osmolality Calculated 304 mOsm/kg (285-295); Phosphorus 4.3 mg/dL (2.5-4.5); Potassium 3.8 mmol/L (3.5-5.1); Sodium 139 mmol/L (136-145); Total Bilirubin 0.2 mg/dL (0.15-1.2); Total Protein 6.7 g/dL (6.6-8.7)
--- NOTE | 2020-08-30 07:30 | PC.NURSE ---
pt would like her calloway out She said their is pressure feeling. notified doctor via voalte and telephone order to okay to remove calloway.
[2020-08-30 08:03] LABS: Glucose Point of Care 214 mg/dL (70-110)
[2020-08-30] MEDS: metoprolol tartrate 50 mg Tablet PO ×2 (08:37→17:53)
[2020-08-30] MEDS: allopurinol 100 mg Tablet PO (08:37)
[2020-08-30] MEDS: duloxetine 30 mg Capsule PO (08:37)
[2020-08-30] MEDS: levothyroxine 25 mcg Tablet PO (08:37)
[2020-08-30 08:52] VITALS: BP 188/74; PULSE 65; RESP 17; TEMP 36.6; O2SAT 96
--- NOTE | 2020-08-30 09:05 | PC.SOCIAL ---
IMM Page 2 of IMM explained to patient. Initialed, dated, and timed and placed in chart. Copy provided to patient.
--- NOTE | 2020-08-30 09:08 | PC.NURSE ---
Addendum entered by Chiqui Gonzalez RN 08/30/20 09:49: After physician's discussion and reinforcement on the pt's scheduled and new medication, she allowed the nurse to administer it to her. Informed pt that she has to call her to bring her medihoney ointment for her wound on her foot. Original Note: Medication Discuss to pt her morning medications as well as the new medication. She refused to take them and would like to talk to the doctor first. Doctor notified via voalte phone on pt's refusal to take them now until she talks to the doctor first.
[2020-08-30] MEDS: amlodipine 5 mg Tablet PO ×2 (09:42→16:07)
--- NOTE | 2020-08-30 11:00 | PC.NURSE ---
Pt reports her IV site starts to burn Pt has ceftriaxone running. infusion held but pt still reports it is burning. IV site on upper right arm removed. Attempted IV insertion x1, unsuccessful. pt stated she wants to eat first before we start a new one.
--- NOTE | 2020-08-30 11:16 | PC.NURSE ---
tele-nephrology at bedside Dr. Morales in telenephrology
[2020-08-30] MEDS: cefTRIAXone 2,000 MG in sodium chloride 0.9% (plus) 50 ML 100 MG IV ×2 (11:24→14:09)
[2020-08-30 11:53] LABS: Glucose Point of Care 239 mg/dL (70-110)
[2020-08-30 12:00] VITALS: BP 188/74; PULSE 65; RESP 18; TEMP 36.6; O2SAT 98
[2020-08-30] MEDS: spironolactone 25 mg Tablet PO ×2 (12:47→17:53)
[2020-08-30] MEDS: oxybutynin 5 mg Tablet PO ×2 (14:33→21:27)
--- NOTE | 2020-08-30 15:02 | P.PN_ITS ---
Subjective Subjective: Interval history: She says she feels all right. Discussed with her tried calling colchicine this morning, but there are no beds on stepdown or general floor with telemetry. She requested if she can go home. Discussed with her that I would not recommend this until we know she continues to improve, and can safely de-escalate current broad-spectrum antibiotics, antiviral therapy, and get her blood pressures under better control as it is still elevated. I discussed with her concerned that she may get worse again similarly after leaving previously and getting worse at home. She understands and is agreeable that we need to optimize risk factors to prevent recurrence of the dangers episode she has had. She says she is getting antsy sitting in her room, and requests if she can walk around the hospital. Wants to see her as she was only able to see him for 2 hours yesterday. We discussed that cautiously we may try to make an exception for him to stay longer with maintained precautions. She understands that her condition may worsen and she may again encounter a potentially disabling or life-threatening illness at home if she leaves the hospital prematurely. She is also worried about wound on her foot after amputation. She is worried that she does not want to lose anymore toes. Her did not remember her medications, however, she says that she was recommended to use Medihoney on the surgical wound, with a gauze dressing. I evaluated the wound again, and we looked also at the toe on the left which per she had bumped in the show er. There is a small about 3 mm spot with a minimal ecchymosis, no surrounding erythema, no ulcer, no drainage. This will need to be monitored. Discussed with her to make sure she is not walking barefoot. We will order dressing changes for her right foot, and Berny honey, although appears we do not have this in the hospital and this really need to be brought by her . She is agreeable with plan to continue empiric treatment at this time until subspecialty physicians can be contacted tomorrow including her infectious disease physician Dr. Padgett at [facility] neurology to assist in safely de- escalating empiric therapy and planning outpatient follow-up. Vitals/I&O/Wt Last Vital Signs Temp 97.8 F 08/30/20 12:00 Pulse 65 08/30/20 12:00 Resp 18 08/30/20 12:00 BP 188/74 08/30/20 12:00 Pulse Ox 98 08/30/20 12:00 08/30/20 08/30/20 08/30/20 06:59 14:59 22:59 Intake Total 215 / 915 118 / 118 Output Total 400 / 1400 150 / 150 Balance -185 / -485 -32 / -32 Weight last 48 hrs Weight 133.22 kg Weight 127.097 kg Physical Exam Const: COMMON NORMALS: no acute distress, patient oriented x3 and alert EXAM LIMITATIONS: no altered mental status GENERAL APPEARANCE: cooperative NUTRITIONAL APPEARANCE: obese ORIENTATION/CONSCIOUSNESS: Yes awake OTHER: Slightly labile affect, cries about wanting to go home. HENMT: COMMON NORMALS: oropharynx normal Eye: COMMON NORMALS: Equal, round and reactive pupils present PUPIL: Yes Equal, round and reactive pupils present Neck/C-Spine: COMMON NORMALS: no JVD Resp: COMMON NORMALS: normal respiratory effort and clear to auscultation bilaterally AUSCULTATION: clear to auscultation bilaterally and bronchial breath sounds Cardio: COMMON NORMALS: no JVD, regular rhythm, S1 normal heart sound present, S2 normal heart sound present and No murmurs present (Cardio) RATE: tachycardic RHYTHM: regular rhythm HEART SOUNDS: S1 normal heart sound present and S2 normal heart sound present GI: COMMON NORMALS: Normal to inspection, nondistended, normoactive bowel sounds present, Soft to palpation and non-tender PALPATION: Yes Soft to palpation Extremity: COMMON NORMALS: no joint enlargement and no pedal edema NARRATIVE EXTREMITY EXAM: Right foot fourth digit amputation wound looks very good. We took down the support wraps she wears, and there is a well-healing wound, no discharge or purulence or signs of infection. Left first toe with small about 3 mm area of ecchymosis, no ulceration, no drainage, no surrounding erythema. Neuro: COMMON NORMALS: patient oriented x3 and moves all extremities SENSORIUM/ORIENTATION: Yes alert SPEECH: speech normal MOTOR EXAM: 5/5 motor strength present throughout Skin: COMMON NORMALS: no rashes or lesions noted GENERAL SKIN EXAM: no rashes or lesions noted Urinary Catheter Management^: Tejada: Cath Placed During This Visit: yes, but has since been removed by the nurse Reason for Continuing Indwelling Catheter: Decision to DC Catheter Urinary Catheter Date of Insertion: 08/27/20 Urinary Catheter Time of Insertion: 21:30 Date Urinary Catheter Removed: 08/30/20 Time Urinary Catheter Discontinued: 08:05 Data : 08/30/20 04:29 08/30/20 04:29 Micro: Microbiology 08/29/20 14:00 C.difficile Toxin B Gene (PCR) - Final Stool Routine Collection A&P Assessment and plan (1) Acute encephalopathy: Acute encephalopathy resolved. Currently continuing on empiric treatment. Will not able to obtain lumbar puncture. We have not been able to obtain transfer to [facility] to be assessed by her infectious disease physician, neurology. She overall rather go home, but otherwise wants to continue hospitalization here. At this time continue. Therapy, tomorrow would contact her factious disease physician and discuss her care patient with him, as well as neurology regarding whether there may be any additional recommendations for evaluation given could not get LP, given improvement in her condition while on empiric therapy. Blood pressure still transiently elevated, into 180s. Needs better control. This morning adding amlodipine 5 mg, but still elevated. She is going to receive labetalol dose. Give additional 5 mg of amlodipine. Starting tomorrow continue Motofen 10 mg daily. She was also anxious about why her medication was changed, with her not receiving clonidine. Discussed with her concern regarding clonidine rebound hypertension given her blood pressure was already very elevated when she had come in and could not take oral medications. Discussed with her long-term this medication would not be safe for her to continue to take and I would recommend discontinuation on discharge. At this time continue empiric anticonvulsant coverage. We will switch to Keppra oral formulation. Will need to follow-up with neurology in office to de- escalate anticonvulsant. For now we will continue with antibiotics and acyclovir - would coordinate with infectious disease, neurology with regards to de-escalation and additional follow-up once they are back in office on Monday. ESR, CRP, BEREKET, ANCA Status: Acute (2) Hypertensive emergency: Resolved. Blood pressures not optimally controlled, still rising into 190 systolic. Adjust medications as above. Optimize HTN. Would not continue clonidine. Status: Acute (3) Seizure: Secondary to likely PRES, hypertensive emergency, but additional work-up as above. Continue Keppra. Change to oral. To be weaned off by neurology in office. Arrange for outpatient EEG per recommendation. Status: Acute (4) Renal failure: Appreciate nephrology recommendations. Chronic renal failure, ESRD, has been on and off hemodialysis depending on her renal function, and last hemodialysis is been over 2 weeks ago per . He does state that she has had previous episodes of confusion prior to needing to resume dialysis. Continue follow-up with nephrology in office in [place] dr Mitchell. Status: Acute Qualifiers: Renal failure chronicity: chronic (5) Acute hyperkalemia: Improved with hemodialysis. 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 Obtain records from Dr. Padgett's office with regards to which medication she is chronically taking. Try calling to speak with Dr. Padgett as well, but he is out of office for the weekend. She says the Augmentin was prescribed for her recently after amputation. She says she does not take Bactrim on a regular basis. 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 She cannot exactly recall the name of the antibiotic that she takes, but will try to see if can get in touch with her and if he can go through her medications at home. Reports also history of C diff in 2016. Loose stool here. C diff neg. We have not yet received any records from her ID physician's office. Status: Acute Additional A&P Information Chronic alk phos elevation Dirty urine sample Recent osteomyelitis of R 4th toe: Status post amputation, says recently completed course of IV antibiotic (about 2 weeks ago). Says that Augmentin was prescribed for this. For now on hold while on broad-spectrum antibiotics. Reexamined the wound, it is healing well. There is no drainage, no open ulceration. No erythema. Says was instructed to apply Berny honey and gauze dressing. Injury of left first toe: says that she bumped her first left toe when she slumped down in the shower. Has a minimal ecchymosis at the tip of the left great toe, about 3 mm in size. There is no surrounding erythema, no ulceration, no drainage. This needs to be monitored given history of poor healing wounds on lower extremities. Diabetes: BG as low as 110 without lantus/detemir. Continue SSI. Add lantus 5. Titrate up depending on she is tolerating it. Diabetic diet. TARA: She is supposed to be using nightly CPAP, but has not been using it at [facility], her CPAP is missing parts. says that she does not tolerate things over her face. Currently due to confusion, agitation hold off on CPAP. Resume once she is able to. Discussed with and encouraged him to get the home CPAP functioning again, as untreated TARA will predispose her again to episodes of hypertension which should be avoided in her case as much as possible. Please reinforce again importance of wearing CPAP. RLS: was not sure if maybe she might take more than usual medications for RLS as he says she gets very severe symptoms, although has never actually o bserved her taking extra medications. Medications have been held so far due to encephalopathy. She is requesting for us to be resumed. Hypothyroidism Urinary incontinence CHF, history of diastolic HLD Obesity Chronic back pain: says not infrequently sits at the edge of the bed to sleep due to chronic pain Other chronic medical conditions noted. Attestations Medical Necessity Statement*: Continue admission for assessment and management of acute encephalopathy, white matter edema, PRES versus other cerebritis, de- escalation of empiric therapy and optimization of blood pressure control. Coding Level of Care Code Acute Copper Miner for Aimee Fwd Exam Comprehensive Diagnoses Acute encephalopathy G93.40 Hypertensive emergency I16.1 Seizure R56.9 Renal failure N19 Renal failure chronicity: chronic Acute hyperkalemia E87.5 Chronic antibiotic suppression Z79.2
[2020-08-30 15:16] VITALS: BP 193/83; PULSE 66; RESP 19; TEMP 36.7; O2SAT 94
--- NOTE | 2020-08-30 15:29 | PC.NURSE ---
Visitor Discuss to doctor that pt wants her to stay longer. Discuss to pt visitor policy from 4- [address] Hendrickson and stated can stay all night if he wants to. Informed pt regarding this.
[2020-08-30] MEDS: labetalol 5 mg/mL SDV 20mL 10 MG IVP (16:08)
--- NOTE | 2020-08-30 16:13 | PM.PN ---
Subjective Subjective: Interval history: Feels well this morning with improved confusion. Bps remain markedly elevated. No uremic Sx. Good urine output No edema and no other volume assoc Sx. Denies chest pain Vitals/I&O/Wt Last Vital Signs Temp 98.1 F 08/30/20 15:16 Pulse 66 08/30/20 15:16 Resp 19 H 08/30/20 15:16 BP 193/83 08/30/20 15:16 Pulse Ox 94 08/30/20 15:16 08/30/20 08/30/20 08/30/20 06:59 14:59 22:59 Intake Total 215 / 915 118 / 118 50 / 168 Output Total 400 / 1400 150 / 150 Balance -185 / -485 -32 / -32 50 / 18 Weight last 48 hrs Weight 133.22 kg Weight 127.097 kg Physical Exam Narrative: EXAM NARRATIVE: Constitutional: awake, conversant HEENT: Wet mucosa, no jvp, non icteric Lungs: Bilaterally clear without discernible wheeze, rales in all lung zones CVS: S1 S2, no murmurs Abdo: Soft, BS ok Ext 4: Minimal edema, peripheral perfusion with no cyanosis Neurological: Grossly non-focal Urinary Catheter Management^: Tejada: Cath Placed During This Visit: yes, but has since been removed by the nurse Reason for Continuing Indwelling Catheter: Decision to DC Catheter Urinary Catheter Date of Insertion: 08/27/20 Urinary Catheter Time of Insertion: 21:30 Date Urinary Catheter Removed: 08/30/20 Time Urinary Catheter Discontinued: 08:05 Data : 08/30/20 04:29 08/30/20 04:29 Micro: Microbiology 08/29/20 14:00 C.difficile Toxin B Gene (PCR) - Final Stool Routine Collection A&P Additional A&P Information 1. Renal failure - history of advanced CKD with prep for dialysis - creatinine actually came down since yesterday without the need for dialysis - monitoring but I am optimistic that dialysis will not be needed - am labs - dose meds for eGFR < 15 on dialysis 2. Lytes look good 3. Hemodynamics - Bp back up - Spironolactone and Amlodipine added; will need to up titrate these meds 4. Encephalopathy - much better, likely relates to malignant hypertension seen on admission - autoimmune workup sent and pending but I doubt they will be positive as she is recovering - hopefully DC in early week once bp is controlled Attestations Medical Necessity Statement*: eval for ELISHA/CKD Coding Level of Care Code Acute Gear Tooth Grinding Machine Operator for Aimee Gonzalez
[2020-08-30 16:43] LABS: Glucose Point of Care 210 mg/dL (70-110)
[2020-08-30] MEDS: ropinirole 2 mg Tablet 3 MG PO (17:53)
[2020-08-30] MEDS: levETIRAcetam 500 mg Tablet PO (17:54)
[2020-08-30 20:00] VITALS: BP 170/74; PULSE 61; RESP 18; TEMP 36.5; O2SAT 93
[2020-08-30 20:43] LABS: Glucose Point of Care 231 mg/dL (70-110)
[2020-08-30] MEDS: insulin glargine 100 units/1 mL 5 UNIT SUBCUT (21:29)
[2020-08-31] VITALS (7 sets, daily range): BP systolic 146–181; BP diastolic 71–98; PULSE 55–76; RESP 13–25; TEMP 36.3–37.1; O2SAT 91–98; BMI 50.4
--- NOTE | 2020-08-31 01:31 | PC.NURSE ---
0100 Assumed patient care. Report received from KWAKU
[2020-08-31] MEDS: cefTRIAXone 2,000 MG in sodium chloride 0.9% (plus) 50 ML 100 MG IV (03:17)
[2020-08-31] MEDS: heparin 5,000 unit/mL INJ 1 mL 5000 UNIT SUBCUT ×2 (03:49→18:28)
[2020-08-31 06:40] LABS: Basophils # 0.1 10^3/uL (0.0-0.1); Basophils % 0.8 %; Eosinophils # 0.4 10^3/uL (0.0-0.8); Eosinophils % 6.2 %; Hematocrit 33.8 % (37.0-47.0); Hemoglobin 9.9 g/dL (11.5-15.3); Lymphocytes # 1.5 10^3/uL (0.8-4.8); Lymphocytes % 23.3 %; Mean Corpuscular HGB Conc 29.3 g/dL (30.0-36.0); Mean Corpuscular Hemoglobin 25.7 pg (28.0-34.0); Mean Corpuscular Volume 87.8 fL (81-99); Mean Platelet Volume 11.7 fL (7.4-10.4); Monocytes # 0.4 10^3/uL (0.2-0.9); Monocytes % 5.6 %; Neutrophils # 4.13 10^3/uL (1.8-7.7); Neutrophils % 63.8 %; Nucleated Red Blood Cells % 0 %; Platelet Count 163 10^3/cmm (130-400); Red Blood Count 3.85 10^6/uL (4.1-5.3); Red Cell Distribution Width 16.6 % (12.1-15.1); White Blood Count 6.5 10^3/uL (4.0-10.0)
[2020-08-31 06:45] LABS: Glucose Point of Care 246 mg/dL (70-110)
[2020-08-31 06:59] LABS: Alanine Aminotransferase 15 U/L (0-33); Albumin Level 3.4 g/dL (3.5-5.2); Alkaline Phosphatase 115 IU/L (35-105); Blood Urea Nitrogen 42 mg/dL (8-23); Calcium 8.2 mg/dL (8.5-10.5); Carbon Dioxide 19 mmol/L (22-29); Chloride 105 mmol/L (98-107); Glomerular Filtration Rate 26.8 mL/min (90-130); Glucose 256 mg/dL (65-115); Osmolality Calculated 301 mOsm/kg (285-295); Sodium 136 mmol/L (136-145); Total Bilirubin 0.2 mg/dL (0.15-1.2); Total Protein 6.4 g/dL (6.6-8.7)
[2020-08-31 07:50] LABS: Anion Gap 16.5 (5-19); Aspartate Amino Transferase 16 U/L (0-32); Potassium 4.5 mmol/L (3.5-5.1)
[2020-08-31] MEDS: allopurinol 100 mg Tablet PO (08:36)
[2020-08-31] MEDS: levothyroxine 25 mcg Tablet PO (08:36)
[2020-08-31] MEDS: duloxetine 30 mg Capsule PO (08:36)
[2020-08-31] MEDS: amlodipine 10 mg Tablet PO (08:36)
[2020-08-31] MEDS: ropinirole 2 mg Tablet 3 MG PO ×2 (08:37→18:27)
[2020-08-31] MEDS: metoprolol tartrate 50 mg Tablet PO ×2 (08:37→18:27)
[2020-08-31] MEDS: oxybutynin 5 mg Tablet PO ×3 (08:37→20:28)
[2020-08-31] MEDS: spironolactone 25 mg Tablet PO ×2 (08:37→18:27)
--- NOTE | 2020-08-31 09:31 | PM.PN ---
Subjective Subjective: Interval history: Feels well this morning. Bps slowly improving. No uremic Sx. Good urine output No edema and no other volume assoc Sx. Denies chest pain Vitals/I&O/Wt Last Vital Signs Temp 98.7 F 08/31/20 06:59 Pulse 72 08/31/20 06:59 Resp 18 08/31/20 06:59 BP 169/79 08/31/20 06:59 Pulse Ox 92 08/31/20 06:59 08/30/20 08/31/20 08/31/20 22:59 06:59 14:59 Intake Total 290 / 408 Output Total 150 / 300 Balance 140 / 108 Weight last 48 hrs Weight 133.22 kg Weight 133.22 kg Physical Exam Narrative: EXAM NARRATIVE: Constitutional: awake, conversant HEENT: Wet mucosa, no jvp, non icteric Lungs: Bilaterally clear without discernible wheeze, rales in all lung zones CVS: S1 S2, no murmurs Abdo: Soft, BS ok Ext 4: Minimal edema, peripheral perfusion with no cyanosis Neurological: Grossly non-focal Urinary Catheter Management^: Tejada: Cath Placed During This Visit: yes, but has since been removed by the nurse Reason for Continuing Indwelling Catheter: Decision to DC Catheter Urinary Catheter Date of Insertion: 08/27/20 Urinary Catheter Time of Insertion: 21:30 Date Urinary Catheter Removed: 08/30/20 Time Urinary Catheter Discontinued: 08:05 Data : 08/31/20 06:16 08/31/20 06:16 A&P Additional A&P Information 1. Renal failure - history of advanced CKD with prep for dialysis - creatinine actually came down since yesterday without the need for dialysis - monitoring but I am optimistic that dialysis will not be needed - am labs - dose meds for eGFR < 15 on dialysis 2. Lytes look good 3. Hemodynamics - Spironolactone and Amlodipine added; Monitor from my perspective today as the new additions reach steady state 4. Encephalopathy - much better, likely relates to malignant hypertension seen on admission - autoimmune workup sent and pending but I doubt they will be positive as she is recovering - possible DC today, ok from my perspective Attestations Medical Necessity Statement*: eval for ELISHA Coding Level of Care Code Acute Cross Cut Saw Operator for Sherg Lisa
--- NOTE | 2020-08-31 10:09 | P.PN_ITS ---
Subjective Subjective: Interval history: No acute overnight events. Patient continues to be at her baseline mental status. She is alert awake oriented, able to ambulate independently. Complains of some intermittent on and off headache. Medications: Reviewed: Yes Vitals/I&O/Wt Last Vital Signs Temp 98.7 F 08/31/20 06:59 Pulse 72 08/31/20 06:59 Resp 18 08/31/20 06:59 BP 169/79 08/31/20 06:59 Pulse Ox 92 08/31/20 06:59 08/30/20 08/31/20 08/31/20 22:59 06:59 14:59 Intake Total 290 / 408 Output Total 150 / 300 Balance 140 / 108 Weight last 48 hrs Weight 133.22 kg Weight 133.22 kg Physical Exam Narrative: EXAM NARRATIVE: GEN: Awake, alert and oriented, no acute distress CVS: S1S2 N RS: CTA B/L Abd: Soft, nt/nd , bs+ MORTGAGE PROCESSOR: no focal neuro deficits Urinary Catheter Management^: Tejada: Cath Placed During This Visit: yes, but has since been removed by the nurse Reason for Continuing Indwelling Catheter: Decision to DC Catheter Urinary Catheter Date of Insertion: 08/27/20 Urinary Catheter Time of Insertion: 21:30 Date Urinary Catheter Removed: 08/30/20 Time Urinary Catheter Discontinued: 08:05 Data : 08/31/20 06:16 08/31/20 06:16 A&P Assessment and plan (1) PRES (posterior reversible encephalopathy syndrome): Status: Acute (2) Seizure: Status: Acute (3) Hypertensive emergency: Status: Acute (4) Acute encephalopathy: Status: Acute (5) TARA (obstructive sleep apnea): Status: Acute (6) Chronic antibiotic suppression: Status: Acute (7) Lumbar stenosis with neurogenic claudication: Status: Acute (8) Headache: Status: Acute Qualifiers: Headache chronicity pattern: acute headache Headache type: unspecified Intractability: not intractable Qualified Code(s): R51.9 - Headache, unspecified (9) Renal failure: Status: Acute Qualifiers: Renal failure chronicity: chronic Chronic kidney disease stage: unspecified stage Qualified Code(s): N18.9 - Chronic kidney disease, unspecified Additional A&P Information 60-year-old lady with ESRD, previously on hemodialysis, not currently, admitted to the hospital on August 29, 2020 for chief complaints of altered mental status when noted her at home to be suddenly confused, possible syncope with fall to shower floor and a witnessed seizure for about 30 seconds. Upon presentation she was noted to be extremely confused and restless but later returned back to her baseline mental status over the next 24 hours. Noted to have hypertension up to systolics of 200 upon presentation which is now much better controlled. CT of the head upon admission had shown multifocal areas of white matter edema concerning for press. # Acute encephalopathy Possible differentials for this are press given her elevated blood pressure on presentation and multifocal areas of white matter edema noted on CT of the brain. Subsequent follow-up CT of the August 30 does seem to show some degree of improvement in this white matter edema. Her blood pressure is currently much better controlled at this time. Another possibility would be postictal state from her seizure. Patient is now back to her baseline mental status. Alternate differentials in this case include cerebritis. Autoimmune work-up thus far is with elevated ESR of 52, however patient did recently have osteomyelitis therefore I do not know if this is trending up or down from that. BEREKET level remains pending as does antidsDNA. Rest of the autoimmune work-up including complement levels are negative. Due to possibility of infectious etiologies, patient has been on antibiotics with ceftriaxone, vancomycin and acyclovir. Overall this is unlikely to be bacterial meningitis given that patient recovered within about 24 hours, has had no fever, no leukocytosis. Viral encephalopathy/encephalitis cannot be excluded completely. She gives a history of cold sores and had an outbreak around her oral mucosa about 2 weeks ago. Also states that she has had left ear fullness over the same period of time. Tick panel has been added today. Also check rapid Covid antigen for possibility of viral meningitis. LP was unfortunately unable to be performed in spite of 2 attempts in the ER and then again also by radiology. For now we will start to de-escalate antibiotic coverage; discontinue vancomycin, continue ceftriaxone for now and continue acyclovir. We will likely transition the latter to Valtrex when nearing discharge. MRI of the brain today, overall pictures appear to be most consistent with press and less likely to be bacterial meningitis. 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 Patient was previously planned to be transferred to [facility] given her acute changes, however given her improvement her and the patient have declined transfer to [place] at this present time. He would still be interested in transferring to [facility] should a bed become available. Call has been placed to Dr. Padgett from ID at [facility] per the patient's request to update him about her ongoing care here. Continue Keppra #Hypertensive emergency, now much better controlled. Continue amlodipine 10mg po qd, metoprolol, spirinolactone. If further medicatiosn needed, will likely add hydralazine # new onset seizures: as above. # CKD, appreciate renal recommendations # spinal hardware infection, staph aureus bacteremia history: will resume chronic suppression once CTX course is completed Full code DVT ppx: heparin Attestations Medical Necessity Statement*: MRI brain today, ongoing intermittent headaches, deescalation of abx with close monitoring for any deterioration Coding Level of Care Code Acute Driller Operator for Chg Fwd Diagnoses PRES (posterior reversible encephalopathy syndrome) I67.83 Seizure R56.9 Hypertensive emergency I16.1 Acute encephalopathy G93.40 TARA (obstructive sleep apnea) G47.33 Chronic antibiotic suppression Z79.2 Lumbar stenosis with neurogenic claudication M48.062 Headache R51.9 Headache chronicity pattern: acute headache Headache type: unspecified Intractability: not intractable Renal failure N18.9 Renal failure chronicity: chronic Chronic kidney disease stage: unspecified stage
--- NOTE | 2020-08-31 10:44 | MR_ITS ---
WS: [id number] MRI BRAIN WITHOUT CONTRAST HISTORY: evaluate for PRES vs viral encephalitis COMPARISON: CT brain 08/28/2020 and 08/27/2020 = TECHNIQUE: Diffusion imaging, multiplanar T1, T2 and FLAIR imaging obtained. No evidence for an acute infarct. No intracranial hemorrhage. There is significant increased signal within the white matter. Increased signal begins at the level o f the vertex and extends along the white matter tracts to involve the occipital, frontal and parietal lobes. Temporal lobes have been spared. No midline shift or mass effect. Bilateral increased signal in the dhaval may be from ischemia. Ventricles and extra-axial spaces are normal. No inferior displacement of cerebellar tonsils. The sella turcica and pituitary gland are unremarkabl e. Posterior fossa is also unremarkable. Dural venous sinuses and knik of Luis demonstrate no abnormality on this unenhanced studies. Inde terminate for mild thickening involving the RIGHT MCA. Paranasal sinuses: Clear. Mastoid air cells: Small amount of fluid in the mastoid air cells. Calvarium and scalp: Intact. MR/MR head wo con* [id number] IMPRESSION: 1. Bilateral symmetric T2 and FLAIR signal hyperintensities without hemorrhage or diffusion abnormalities. Nonspecific MRI findings but etiologies to conside r are PRES, viral encephalitis and vasculitis. Follow-up MR angiogram knik of Luis may be helpful for further evaluation of the arteries. 2. No hemorrhage or an acute infarct.
[2020-08-31 11:19] LABS: Glucose Point of Care 196 mg/dL (70-110)
[2020-08-31 11:58] LABS: SARS Covid-2 Antigen Negative (Negative)
[2020-08-31] MEDS: ALPRAZolam 0.25 mg Tablet PO (12:15)
[2020-08-31] MEDS: HYDROcodone-acetaminophen 5-325 mg Tablet 1 TAB PO ×2 (12:15→20:28)
[2020-08-31] MEDS: calcitriol 0.25 mcg Capsule PO (12:17)
[2020-08-31 13:28] LABS: COMPLEMENT COMPONENT C3C 120 mg/dL (83-193); COMPLEMENT COMPONENT C4C 22 mg/dL (15-57)
[2020-08-31 14:23] LABS: CENTROMERE B ANTIBODY <1.0 NEG AI (<1.0 NEG); JO-1 ANTIBODY <1.0 NEG AI (<1.0 NEG); RNP ANTIBODY <1.0 NEG AI (<1.0 NEG); SCL-70 ANTIBODY <1.0 NEG AI (<1.0 NEG); SJOGREN'S ANTIBODY (SS-A) <1.0 NEG AI (<1.0 NEG); SM ANTIBODY <1.0 NEG AI (<1.0 NEG)
--- NOTE | 2020-08-31 14:25 | PC.NURSE ---
Patient transported to MRI by non emergent medical transport.
[2020-08-31 15:58] LABS: THYROID PEROXIDASE ANTIBODIES <1 IU/mL (<9)
[2020-08-31 16:22] LABS: COMPLEMENT, TOTAL (CH50) >60 U/mL (31-60)
[2020-08-31 16:28] LABS: Glucose Point of Care 179 mg/dL (70-110)
[2020-08-31] MEDS: levETIRAcetam 500 mg Tablet PO (18:27)
--- NOTE | 2020-08-31 19:33 | PC.NURSE ---
Rounding: Patient is resting in bed on her phone. Patient is alert and oriented and denies pain.
[2020-08-31 20:27] LABS: Glucose Point of Care 256 mg/dL (70-110)
[2020-08-31] MEDS: insulin glargine 100 units/1 mL 5 UNIT SUBCUT (20:29)
[2020-08-31] MEDS: labetalol 5 mg/mL SDV 20mL 10 MG IVP (20:30)
[2020-09-01] MEDS: HYDROcodone-acetaminophen 5-325 mg Tablet 1 TAB PO ×2 (00:19→04:31)
[2020-09-01 04:00] VITALS: BP 156/67; PULSE 60; RESP 21; TEMP 36.8; O2SAT 92
[2020-09-01] MEDS: cefTRIAXone 2,000 MG in sodium chloride 0.9% (plus) 50 ML 100 MG IV (04:29)
[2020-09-01] MEDS: heparin 5,000 unit/mL INJ 1 mL 5000 UNIT SUBCUT (04:31)
--- NOTE | 2020-09-01 05:28 | PC.NURSE ---
End of shift: Patient has rested well. Patient ambulated in the anaya with her walker and the STUDIO DESIGNER. Patient had no complaints during ambulation. Patient remains alert and oriented and has rested well.
[2020-09-01 06:10] LABS: Basophils % 0.7 %; Eosinophils # 0.5 10^3/uL (0.0-0.8); Eosinophils % 7.6 %; Hematocrit 33.1 % (37.0-47.0); Hemoglobin 9.6 g/dL (11.5-15.3); Lymphocytes # 1.5 10^3/uL (0.8-4.8); Mean Corpuscular Hemoglobin 25.1 pg (28.0-34.0); Mean Corpuscular Volume 86.6 fL (81-99); Mean Platelet Volume 10.4 fL (7.4-10.4); Monocytes # 0.4 10^3/uL (0.2-0.9); Monocytes % 6.5 %; Neutrophils # 3.62 10^3/uL (1.8-7.7); Nucleated Red Blood Cells % 0 %; Platelet Count 168 10^3/cmm (130-400); Red Blood Count 3.82 10^6/uL (4.1-5.3); Red Cell Distribution Width 16.8 % (12.1-15.1)
[2020-09-01 06:15] LABS: Glucose Point of Care 212 mg/dL (70-110)
[2020-09-01 07:10] LABS: Alanine Aminotransferase 13 U/L (0-33); Albumin Level 3.3 g/dL (3.5-5.2); Alkaline Phosphatase 117 IU/L (35-105); Anion Gap 16.6 (5-19); Aspartate Amino Transferase 11 U/L (0-32); Blood Urea Nitrogen 41 mg/dL (8-23); Calcium 8.7 mg/dL (8.5-10.5); Carbon Dioxide 23 mmol/L (22-29); Chloride 103 mmol/L (98-107); Globulin 2.9 g/dL (1.3-4.6); Glomerular Filtration Rate 23.9 mL/min (90-130); Glucose 239 mg/dL (65-115); Osmolality Calculated 304 mOsm/kg (285-295); Potassium 4.6 mmol/L (3.5-5.1); Sodium 138 mmol/L (136-145); Total Bilirubin 0.2 mg/dL (0.15-1.2); Total Protein 6.2 g/dL (6.6-8.7)
[2020-09-01 07:25] VITALS: BP 177/87; PULSE 58; RESP 13; TEMP 36.5; O2SAT 94
[2020-09-01] MEDS: ropinirole 2 mg Tablet 3 MG PO (08:24)
[2020-09-01] MEDS: spironolactone 25 mg Tablet PO (08:26)
[2020-09-01] MEDS: allopurinol 100 mg Tablet PO (08:26)
[2020-09-01] MEDS: levothyroxine 25 mcg Tablet PO (08:26)
[2020-09-01] MEDS: amlodipine 10 mg Tablet PO (08:27)
[2020-09-01] MEDS: metoprolol tartrate 50 mg Tablet PO (08:27)
[2020-09-01] MEDS: oxybutynin 5 mg Tablet PO ×2 (08:27→14:57)
[2020-09-01] MEDS: duloxetine 30 mg Capsule PO (08:28)
--- NOTE | 2020-09-01 08:56 | PC.CHAP ---
Pastoral Care Encounter/Spiritual Assessment Type of Contact [] Declined strawhat blocking operator visit [] Patient/Family/Request visit [] Outpatient visit [] Follow-up visit [] Physician referral [] Code/Alert [x] Routine visit [] Staff referral [] Actively dying [] Patient sleeping [] Family support [] [] Out of room [] Palliative care [] [] Receiving care in room [] Pre-surgical visit [] Trauma [] Long length of stay [] ICU visit [] Other: Relational/Emotional Strength [] Patient feels connected with others/family/visitors/staff [] Distress [] Loneliness/isolation [] Abandonment Spirituality of Patient [] Person of Gwen [] Attends Sabianism of their Gwen [] Believes in Prayer [] Reads Bible or Sabianism materials [] There are Spiritual issues to be addressed Fourdrinier Operator Interventions [x] Prayer [x] Active listening [x] Non-anxious presence [x] Spiritual/emotional support [] Crisis/trauma care [] Spiritual counseling [] Bereavement support [] Provided bereavement packet [] Provided Bible/devotional materials [] Provided toy/stuffed animal, coloring book to patient or family member [] Provided Communion [] Anointing/[place] [] Salvation [x] Completed spiritual assessment [] Other: Impact on Illness or Injury [] Angry [] Fearful [] Anxious [] Often cries [] Exhaustion [] Unable to work [] Unable to attend sikh [] Unable to walk/stand [] Unable to read [] Unable to drive [] Unable to eat/drink [] Unable to sleep [] Unable to be with family [] Patient intubated [] Other: Summary patient feeling stronger today Time spent with patient 5 min
--- NOTE | 2020-09-01 09:18 | P.PN_ITS ---
Subjective Subjective: Interval history: Feels good, essentially asymptomatic now. Bps coming down a little but still very high this morning prior to her meds No edema and no other volume Sx. Passing urine No uremic Sx Medications: Reviewed: Yes Vitals/I&O/Wt Last Vital Signs Temp 97.7 F 09/01/20 07:25 Pulse 58 L 09/01/20 07:25 Resp 13 09/01/20 07:25 BP 177/87 09/01/20 07:25 Pulse Ox 94 09/01/20 07:25 08/31/20 09/01/20 09/01/20 22:59 06:59 14:59 Intake Total 720 / 720 265 / 985 222 / 222 Output Total 400 / 400 Balance 720 / 720 -135 / 585 222 / 222 Weight last 48 hrs Weight 132.903 kg Weight 133.22 kg Physical Exam Narrative: EXAM NARRATIVE: Constitutional: awake, conversant HEENT: Wet mucosa, no jvp, non icteric Lungs: Bilaterally clear without discernible wheeze, rales in all lung zones CVS: S1 S2, no murmurs Abdo: Soft, BS ok Ext 4: Minimal edema, peripheral perfusion with no cyanosis Neurological: Grossly non-focal Urinary Catheter Management^: Tejada: Cath Placed During This Visit: yes, but has since been removed by the nurse Reason for Continuing Indwelling Catheter: Decision to DC Catheter Urinary Catheter Date of Insertion: 08/27/20 Urinary Catheter Time of Insertion: 21:30 Date Urinary Catheter Removed: 08/30/20 Time Urinary Catheter Discontinued: 08:05 Data : 09/01/20 06:00 09/01/20 06:00 A&P Additional A&P Information 1. Renal failure - history of advanced CKD with prep for dialysis - creatinine remains stable, eGFR 24ml/min with minor flux - no indicatino for dialysis at this time - am labs - dose meds for eGFR < 15 on dialysis 2. Lytes look good 3. Hemodynamics - Spironolactone and Amlodipine added; may need up-titration today 4. Encephalopathy - much better, likely relates to malignant hypertension seen on admission - autoimmune workup sent and pending - PRES seen on MRI > ? significance given resolution of AMS Attestations Medical Necessity Statement*: eval for renal failure Coding Level of Care Code Acute Chief Contract Officer for [employer] Lisa
--- NOTE | 2020-09-01 09:20 | DCPLANNER ---
IMM completed on 09/01/2020 @ 0984. Copy of rights given to pt.
[2020-09-01 09:56] VITALS: BP 176/74
[2020-09-01] MEDS: hyDRALAzine 10 mg Tablet PO (10:52)
[2020-09-01 11:23] VITALS: BP 137/60; PULSE 53; RESP 22; TEMP 36.5; O2SAT 90
[2020-09-01 11:49] LABS: Glucose Point of Care 240 mg/dL (70-110)
[2020-09-01 12:13] LABS: Lyme AB Screen <0.90 index
--- NOTE | 2020-09-01 14:36 | PM.DCS ---
Discharge Providers Date of Admission: 08/27/20 14:31 Date of Discharge: September 01, 2020 Attending Provider at Admission: Dallas Hendrickson Attending Provider at Discharge: Di Lu MD Primary Care Provider: Lexis Ring MD Diagnoses at Discharge Discharge Diagnosis (1) PRES (posterior reversible encephalopathy syndrome): Status: Acute (2) Seizure: Status: Acute (3) Hypertensive emergency: Status: Acute (4) Acute encephalopathy: Status: Acute (5) TARA (obstructive sleep apnea): Status: Acute (6) Chronic antibiotic suppression: Status: Acute (7) Lumbar stenosis with neurogenic claudication: Status: Acute (8) Headache: Status: Acute Qualifiers: Headache chronicity pattern: acute headache Headache type: unspecified Intractability: not intractable Qualified Code(s): R51.9 - Headache, unspecified (9) Renal failure: Status: Acute Qualifiers: Chronic kidney disease stage: unspecified stage Renal failure chronicity: chronic Qualified Code(s): N18.9 - Chronic kidney disease, unspecified Reason for Visit Reason for Visit: ALOC Hospital Course Discharge Summary: 60-year-old lady with ESRD, previously on hemodialysis, not currently, admitted to the hospital on August 27, 2020 for chief complaints of altered mental status when noted her at home to be suddenly confused, possible syncope with fall to shower floor and a witnessed seizure for about 30 seconds. Upon presentation she was noted to be extremely confused and restless but later returned back to her baseline mental status over the next 24 hours. Noted to have hypertension up to systolics of 200 upon presentation which is now much better controlled. CT of the head upon admission had shown multifocal areas of white matter edema concerning for press. # Acute encephalopathy Likely cause is PRES given her elevated blood pressure on presentation and multifocal areas of white matter edema noted on CT of the brain. Subsequent follow-up CT of the August 30 does seem to show some degree of improvement in this white matter edema. MRi done on 08/31 also with non specific white matter changes likely to represent PRES vs cerebritis. Her blood pressure is currently much better controlled at this time. New medications have been added to her regimen including amlodipine and spironolactone. In addition hydralazine 10 mg has been added as a as needed for systolic blood pressure greater than 170s. She is instructed to check blood pressure and keep a diary over the next week and bring it to her next visit with Dr. Ring. Her MRI findings and clinical course were additionally discussed with Dr. Art banks of the neurology consult service at [facility] as Dr. Lynch is not available for consult currently. Per review of the MRI by the consult service, MRI findings do appear to suggest PRES together with the clinical history. Low concern for meningoencephalitis at this present time given patient's quick recovery within 24 hours and absence of any preceding symptoms of fever. Transfer was initaited to [facility] for the same, however patient eventually declined this transfer. Alternate differentials include postictal state from her seizure. Other differentials pursued included cerebritis. Autoimmune work-up thus far is with elevated ESR of 52, however patient did recently have osteomyelitis and this is trending down from >120. BEREKET level remains pending as does antidsDNA. Rest of the autoimmune work-up including complement levels are negative. Due to possibility of infectious etiologies, patient received antibiotics with ceftriaxone, vancomycin and acyclovir since admission. Overall this is unlikely to be bacterial meningitis given that patient recovered within about 24 hours, has had no fever, no leukocytosis. Abx have therefore been discontinued. Viral encephalopathy/encephalitis cannot be excluded completely in the absence of LP and MRI findings, though this is lower on the differential. She gives a history of cold sores and had an outbreak around her oral mucosa about 2 weeks ago. Also states that she has had left ear fullness over the same period of time. For this reason, acyclovir was continued and has been changed to valtrex on discharge to complete total 14 day course. Tick panel has been added, remains pending. Covid antigen negative. LP was unfortunately unable to be performed in spite of 2 attempts in the ER and then again also by radiology. 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 Keppra 500mg qd is being continued on discharge. All medications are renally dosed. #Hypertensive emergency, now much better controlled. Continue amlodipine 10mg po qd, metoprolol, spirinolactone. Hydralazine added prn # new onset seizures: as above. Keppra on discharge # CKD, appreciate renal recommendations # spinal hardware infection, staph aureus bacteremia history: will resume chronic suppression with Keflex on discharge At discharge patient is alert, awake, oriented withotu acute complaints. No focal deficits. No witnessed seizures during admission. She is recommended to f/up with neuology within 7-10 days of discharge. She indicates she will ask her PCP For a referral to neurology at [facility] Physical Exam Narrative: EXAM NARRATIVE: GEN: Awake, alert and oriented, no acute distress CVS: S1S2 N RS: CTA B/L Abd: Soft, nt/nd , bs+ SCREEN AND CYCLONE REPAIRER: no focal neuro deficits Urinary Catheter Management^: Tejada: Cath Placed During This Visit: yes, but has since been removed by the nurse Reason for Continuing Indwelling Catheter: Decision to DC Catheter Urinary Catheter Date of Insertion: 08/27/20 Urinary Catheter Time of Insertion: 21:30 Date Urinary Catheter Removed: 08/30/20 Time Urinary Catheter Discontinued: 08:05 Discharge Data Data Completed and Pending: Completed Studies During Hospitalization Category Date Time Status CT head wo con* 7 0450 Urgent Cat Scan 08/27/20 11:[address] head wo con* 7 0450 Urgent Cat Scan 08/28/20 09:11 Completed XR chest 1V [place] ble [id number] Routine Exams 08/28/20 09:03 Completed XR chest 1V [place] ble [id number] Urgent Exams 08/27/20 11:43 Completed MR head wo con* 7 0551 Routine MRI 08/31/20 10:44 Completed Pending at discharge Category Date Time Status BEREKET Profile Rheum atology Routine Lab 08/27/20 19:04 Results Anti-Neutrophil C utoplasmic AB Rout ine Lab 08/28/20 04:44 Received Blood Culture Sta t Lab 08/28/20 09:28 Results Complete Blood Co unt w/Auto AM LABS Lab 09/02/20 04:00 Ordered Comprehensive Met abolic Panel AM LA BS Lab 09/02/20 04:00 Ordered Tick Panel Routin e Lab 08/31/20 07:45 Results MR head wo con* 7 0551 Routine MRI 08/31/20 14:30 Unverified Labs from last 24 hours 09/01/20 09/01/20 09/01/20 10:48 06:07 06:00 WBC RBC Hgb Hct MCV MCH MCHC RDW Plt Count MPV Neut % (Auto) Lymph % (Auto) [place] % (Auto) Eos % (Auto) Baso % (Auto) Neut # (Auto) Lymph # (Auto) [place] # (Auto) Eos # (Auto) Baso # (Auto) Nucleated RBC % (a uto) Nucleated RBCs # Sodium 138 Potassium 4.6 Chloride 103 Carbon Dioxide 23 Anion Gap 16.6 BUN 41 H Creatinine 2.1 H GFR Calculation 23.9 L Glucose 239 H POC Glucose 240 212 Calculated Osmolal ity 304 H Calcium 8.7 Total Bilirubin 0.2 AST 11 ALT 13 Alkaline Phosphata se 117 H Total Protein 6.2 L Albumin 3.3 L Globulin 2.9 Thyroid Peroxidase Ab CH50 [address] [place] Ab (Western B lot) 09/01/20 08/31/20 08/31/20 06:00 19:43 15:50 WBC 6.0 RBC 3.82 L Hgb 9.6 L Hct 33.1 L MCV 86.6 MCH 25.1 L MCHC 29.0 L RDW 16.8 H Plt Count 168 MPV 10.4 Neut % (Auto) 60.0 Lymph % (Auto) 25.0 [place] % (Auto) 6.5 Eos % (Auto) 7.6 Baso % (Auto) 0.7 Neut # (Auto) 3.62 Lymph # (Auto) 1.5 [place] # (Auto) 0.4 Eos # (Auto) 0.5 Baso # (Auto) 0.0 Nucleated RBC % (a uto) 0 Nucleated RBCs # 0.0 Sodium Potassium Chloride Carbon Dioxide Anion Gap BUN Creatinine GFR Calculation Glucose POC Glucose 256 179 Calculated Osmolal ity Calcium Total Bilirubin AST ALT Alkaline Phosphata se Total Protein Albumin Globulin Thyroid Peroxidase Ab CH[address] [place] Ab (Western B lot) 08/30/20 08/28/20 07:45 04:44 WBC RBC Hgb Hct MCV MCH MCHC RDW Plt Count MPV Neut % (Auto) Lymph % (Auto) [place] % (Auto) Eos % (Auto) Baso % (Auto) Neut # (Auto) Lymph # (Auto) [place] # (Auto) Eos # (Auto) Baso # (Auto) Nucleated RBC % (a uto) Nucleated RBCs # Sodium Potassium Chloride Carbon Dioxide Anion Gap BUN Creatinine GFR Calculation Glucose POC Glucose Calculated Osmolal ity Calcium Total Bilirubin AST ALT Alkaline Phosphata se Total Protein Albumin Globulin Thyroid Peroxidase Ab <1 [address] >60 H [place] Ab (Western B lot) <0.90 Vitals: Last Vital Signs Temp 97.7 F 09/01/20 11:23 Pulse 53 L 09/01/20 11:23 Resp 22 H 09/01/20 11:23 BP 137/60 09/01/20 11:23 Pulse Ox 90 09/01/20 11:23 Discharge Plan Discharge Patient Disposition: Home Condition: Stable Prescriptions: New amlodipine 10 mg Tablet 10 mg PO DAILY 30 Days Qty: 30 RF: 0 levetiracetam 500 mg Tablet 500 mg PO Q24H 30 Days Qty: 30 RF: 0 spironolactone 25 mg Tablet 25 mg PO BID 30 Days Qty: 60 RF: 0 Valtrex 1 gram tablet 1,000 mg PO DAILY 7 Days RF: 0 hydralazine 10 mg tablet 10 mg PO TID PRN (Reason: hypertension) Qty: 30 RF: 0 Continued allopurinol 100 mg tablet 100 mg PO DAILY RF: 0 hydrocodone-acetaminophen 7.5-325 mg tablet 1 tab PO TID MDD 3 PRN (Reason: pain (scale score 7-10)) 30 Days Qty: 90 RF: 0 triamcinolone acetonide 0.1 % Cream 1 applic TOPICAL TID PRN (Reason: UNKNOWN) RF: 0 levothyroxine 25 mcg Tablet 25 mcg PO DAILY RF: 0 oxybutynin chloride 5 mg Tablet 5 mg PO TID RF: 0 insulin lispro [Humalog KwikPen Insulin] 100 unit/mL Insulin Pen See Rx Instructions .ROUTE .COMPLEX RF: 0 Levemir FlexTouch U-100 Insuln 100 unit/mL (3 mL) Insulin Pen See Rx Instructions .ROUTE .COMPLEX RF: 0 Toujeo SoloStar U-300 Insulin 300 unit/mL (1.5 mL) Insulin Pen See Rx Instructions .ROUTE .COMPLEX RF: 0 calcitriol 0.25 mcg Capsule See Rx Instructions .ROUTE .COMPLEX RF: 0 metoprolol tartrate 50 mg Tablet 50 mg PO BID RF: 0 magnesium oxide 500 mg Tablet 500 mg PO DAILY RF: 0 vitamin E26-rhpjb acid 0.5-1 mg Tablet 1 tab PO DAILY RF: 0 Changed ropinirole 3 mg Tablet 3 mg PO BID Qty: 0 RF: 0 Cymbalta 60 mg Capsule,Delayed Release(Dr/Ec) 30 mg PO DAILY Qty: 0 RF: 0 Discontinued clonidine HCl 0.1 mg tablet 0.1 mg PO BID RF: 0 torsemide 20 mg Tablet 100 mg PO Q48H RF: 0 Discharge Orders: Discharge Order (Routine); Ordered 09/01/20 Ordered By: Di Lu Referrals: Lexis Ring MD [Primary Care Provider] - 4-7 days (Please keep your appointmeent with Dr. Ring on , at 1:15p.m. If you have any questions or need to reschedule. Please call ) Discharge Diet: Usual diet Discharge Activity: Resume usual activity Patient Instructions: Spironolactone (By mouth), Hydralazine (By mouth), Amlodipine (By mouth), Valacyclovir (By mouth), Levetiracetam (By mouth), Sleep Apnea Syndrome (DC), Hyperkalemia (DC), Hypertensive Crisis (DC), Altered Mental Status (GEN) Discharge Attestations Time Spent in Discharge Care*: greater than 30 min Specific Discharge Activities: Specific discharge activities: educating patient, educating and/or supporting family/caregiver, discussing with pcp/other providers, discussing with case aide/social workers/dc planners and documenting/other paperwork Status at Discharge: Cognitive status at discharge: cognitively intact, Behavioral status at discharge: cooperative, Quality Metrics Clinical Quality Measures During this hospital stay, did patient experience: None Coding Level of Care Code Acute Wrapping Clerk for [facility] Fwd Diagnoses PRES (posterior reversible encephalopathy syndrome) I67.83 Seizure R56.9 Hypertensive emergency I16.1 Acute encephalopathy G93.40 TARA (obstructive sleep apnea) G47.33 Chronic antibiotic suppression Z79.2 Lumbar stenosis with neurogenic claudication M48.062 Headache R51.9 Headache chronicity pattern: acute headache Headache type: unspecified Intractability: not intractable Renal failure N18.9 Chronic kidney disease stage: unspecified stage Renal failure chronicity: chronic
[2020-09-01 14:49] VITALS: BP 154/70; PULSE 60; RESP 17; TEMP 36.7; O2SAT 91
[2020-09-01 16:33] VITALS: BP 154/70; PULSE 60; RESP 17; TEMP 36.7; O2SAT 91
--- NOTE | 2020-09-01 16:45 | PC.NURSE ---
Meds to bed [facility] brought pt's new meds prescribed.
--- NOTE | 2020-09-01 17:00 | PC.NURSE ---
Discharge to home with caregiver Instructed pt to follow-up with her pcp. Discuss to pt the new meds prescribed by the doctor. Discuss to her the continued home meds and dosing change on her 2 other home meds. Discharge papers provided to pt. Ushered pt via wheelchair.
[2020-09-02 05:32] LABS: DNA AB (DS) CRITHIDIA,IFA NEGATIVE (NEGATIVE)
[2020-09-02 10:32] LABS: ANA SCREEN, IFA POSITIVE (NEGATIVE)
[2020-09-03 17:03] LABS: E. Chaffeensis AB IGG <1:64; E. Chaffeensis AB IGM <1:20; RMSF IGG NOT DETECTED; RMSF IGM NOT DETECTED
== END 2020-09-01 17:16 | disposition home or self-care (01) | DRG 70 ==
LOC: ER 14:49 → ICU 15:12 → CSU 08-29 20:02
PROVIDERS: Emergency Medicine; Internal Medicine Nephrology; Admitting Provider Internal Medicine; PCP Family Medicine; Visit Provider Student in an Organized Health Care Education/Training Program
DX: I67.83 Posterior reversible encephalopathy syndrome (principal); N18.6 End stage renal disease; G93.49 Other encephalopathy; I13.2 Hypertensive heart and chronic kidney disease with heart failure and with stage 5 chronic kidney disease, or end stage renal disease; I50.32 Chronic diastolic (congestive) heart failure; Z68.43 Body mass index [BMI] 50.0-59.9, adult; I16.1 Hypertensive emergency; Z89.421 Acquired absence of other right toe(s); E11.22 Type 2 diabetes mellitus with diabetic chronic kidney disease; I50.84 End stage heart failure; Z79.2 Long term (current) use of antibiotics; G89.29 Other chronic pain; M54.9 Dorsalgia, unspecified; G47.33 Obstructive sleep apnea (adult) (pediatric); Z91.19 Patient's noncompliance with other medical treatment and regimen; E66.9 Obesity, unspecified; G25.81 Restless legs syndrome; E03.9 Hypothyroidism, unspecified; E87.5 Hyperkalemia; Z79.4 Long term (current) use of insulin; R59.1 Generalized enlarged lymph nodes; R51.9 Headache, unspecified; Z79.891 Long term (current) use of opiate analgesic; Z96.89 Presence of other specified functional implants
CPT/HCPCS: 12345; 36415; 36416; 36600; 51702; 70450; 70551; 71045; 80053; 80306; 80307; 81001; 82310; 82550; 82803; 82962; 83516; 83735; 83970; 84100; 84443; 84550; 85025; 85610; 85651; 86140; 86618; 86666; 86706; 86757; 86803; 87040; 87340; 87426; 87493; 90935; 93005; 96365; 96366; 96372; 96375; 97760; 99282; 99284; 99291; A4570; G0463; J0131; J0133; J0290; J0610; J0696; J1100; J1170; J1200; J1630; J1644; J1815 ×2; J1953; J2060; J2270; J2550; J2704; J2765; J3370; J3490; J7030; J7040; L3260; Q3014

== ENCOUNTER 2020-09-02 10:36 | Outpatient (CLI) | payer MEDICARE, SELFPAY | END 2020-09-02 10:37 | disposition home or self-care (01) | LOC: WOUND 10:37 | PROVIDERS: PCP Family Medicine; Visit Provider Nurse Practitioner Family | DX: E11.621 Type 2 diabetes mellitus with foot ulcer (principal); L97.512 Non-pressure chronic ulcer of other part of right foot with fat layer exposed; Z89.421 Acquired absence of other right toe(s) | CPT/HCPCS: G0463 ==

== ENCOUNTER 2020-09-09 10:39 | Outpatient (CLI) | payer MEDICARE, SELFPAY | END 2020-09-09 10:40 | disposition home or self-care (01) | LOC: WOUND 10:40 | PROVIDERS: PCP Family Medicine; Visit Provider Thoracic Surgery (Cardiothoracic Vascular Surgery) | DX: E11.621 Type 2 diabetes mellitus with foot ulcer (principal); L97.512 Non-pressure chronic ulcer of other part of right foot with fat layer exposed; Z89.421 Acquired absence of other right toe(s) | CPT/HCPCS: 11042 ==

== ENCOUNTER 2020-09-23 10:27 | Outpatient (CLI) | payer MEDICARE, SELFPAY | END 2020-09-23 10:28 | disposition home or self-care (01) | LOC: WOUND 10:28 | PROVIDERS: PCP Family Medicine; Visit Provider Thoracic Surgery (Cardiothoracic Vascular Surgery) | DX: E11.621 Type 2 diabetes mellitus with foot ulcer (principal); L97.512 Non-pressure chronic ulcer of other part of right foot with fat layer exposed | CPT/HCPCS: 11042 ==

== ENCOUNTER 2020-10-27 12:57 | Outpatient (CLI) | payer MEDICARE, SELFPAY | END 2020-10-27 12:58 | disposition home or self-care (01) | LOC: WOUND 12:58 | PROVIDERS: PCP Family Medicine; Visit Provider Thoracic Surgery (Cardiothoracic Vascular Surgery) | DX: E11.621 Type 2 diabetes mellitus with foot ulcer (principal); L97.512 Non-pressure chronic ulcer of other part of right foot with fat layer exposed | CPT/HCPCS: 11042; L4387 ==

== ENCOUNTER 2020-11-03 13:53 | Outpatient (CLI) | payer MEDICARE, SELFPAY | END 2020-11-03 13:54 | disposition home or self-care (01) | LOC: WOUND 13:56 | PROVIDERS: PCP Family Medicine; Visit Provider Thoracic Surgery (Cardiothoracic Vascular Surgery) | DX: E11.621 Type 2 diabetes mellitus with foot ulcer (principal); L97.512 Non-pressure chronic ulcer of other part of right foot with fat layer exposed; L97.412 Non-pressure chronic ulcer of right heel and midfoot with fat layer exposed | CPT/HCPCS: 11042 ==

== ENCOUNTER 2020-11-17 09:00 | Outpatient (CLI) | payer MEDICARE, SELFPAY | END 2020-11-17 09:01 | disposition home or self-care (01) | LOC: WOUND 09:00 | PROVIDERS: PCP Family Medicine; Visit Provider Nurse Practitioner Family | DX: E11.621 Type 2 diabetes mellitus with foot ulcer (principal); L97.512 Non-pressure chronic ulcer of other part of right foot with fat layer exposed; L97.412 Non-pressure chronic ulcer of right heel and midfoot with fat layer exposed | CPT/HCPCS: 11042; 11045; 87070; 87077; 87176; 87186; 87205; L3260 ==

== ENCOUNTER 2020-11-25 13:52 | Outpatient (CLI) | payer MEDICARE, SELFPAY | END 2020-11-25 13:53 | disposition home or self-care (01) | PROVIDERS: PCP Family Medicine; Visit Provider Nurse Practitioner Family | DX: E11.621 Type 2 diabetes mellitus with foot ulcer (principal); L97.512 Non-pressure chronic ulcer of other part of right foot with fat layer exposed; L97.412 Non-pressure chronic ulcer of right heel and midfoot with fat layer exposed | CPT/HCPCS: 11042 ==

== ENCOUNTER 2020-12-02 10:41 | Outpatient (CLI) | payer MEDICARE, SELFPAY | END 2020-12-02 10:42 | disposition home or self-care (01) | LOC: WOUND 10:43 | PROVIDERS: PCP Family Medicine; Visit Provider Thoracic Surgery (Cardiothoracic Vascular Surgery) | DX: E11.621 Type 2 diabetes mellitus with foot ulcer (principal); L97.512 Non-pressure chronic ulcer of other part of right foot with fat layer exposed; L97.412 Non-pressure chronic ulcer of right heel and midfoot with fat layer exposed | CPT/HCPCS: 11042; 11045 ==

== ENCOUNTER 2020-12-09 10:21 | Outpatient (CLI) | payer MEDICARE, SELFPAY | END 2020-12-09 10:22 | disposition home or self-care (01) | LOC: WOUND 10:22 | PROVIDERS: PCP Family Medicine; Visit Provider Thoracic Surgery (Cardiothoracic Vascular Surgery) | DX: E11.621 Type 2 diabetes mellitus with foot ulcer (principal); L97.412 Non-pressure chronic ulcer of right heel and midfoot with fat layer exposed | CPT/HCPCS: 11042 ==

== ENCOUNTER 2020-12-11 08:05 | Outpatient (CLI) | payer MEDICARE, SELFPAY | END 2020-12-11 08:06 | disposition home or self-care (01) | LOC: WOUND 08:06 | PROVIDERS: PCP Family Medicine; Visit Provider Nurse Practitioner Family | DX: E11.621 Type 2 diabetes mellitus with foot ulcer (principal); L97.412 Non-pressure chronic ulcer of right heel and midfoot with fat layer exposed; E11.52 Type 2 diabetes mellitus with diabetic peripheral angiopathy with gangrene; I96 Gangrene, not elsewhere classified; I70.234 Atherosclerosis of native arteries of right leg with ulceration of heel and midfoot | CPT/HCPCS: G0463; L3260 ==

== ENCOUNTER 2020-12-29 14:25 | Outpatient (CLI) | payer MEDICARE, SELFPAY | END 2020-12-29 14:26 | disposition home or self-care (01) | LOC: WOUND 14:26 | PROVIDERS: PCP Family Medicine; Visit Provider Thoracic Surgery (Cardiothoracic Vascular Surgery) | DX: E11.621 Type 2 diabetes mellitus with foot ulcer (principal); L97.412 Non-pressure chronic ulcer of right heel and midfoot with fat layer exposed | CPT/HCPCS: 11042; 11045 ==

== ENCOUNTER 2021-01-13 10:54 | Outpatient (CLI) | payer MEDICARE, SELFPAY | END 2021-01-13 10:55 | disposition home or self-care (01) | LOC: WOUND 10:55 | PROVIDERS: PCP Family Medicine; Visit Provider Thoracic Surgery (Cardiothoracic Vascular Surgery) | DX: E11.621 Type 2 diabetes mellitus with foot ulcer (principal); L97.412 Non-pressure chronic ulcer of right heel and midfoot with fat layer exposed | CPT/HCPCS: 11042; 11045 ==

== ENCOUNTER 2021-01-20 10:28 | Outpatient (CLI) | payer MEDICARE, SELFPAY | END 2021-01-20 10:29 | disposition home or self-care (01) | LOC: WOUND 10:29 | PROVIDERS: PCP Family Medicine; Visit Provider Thoracic Surgery (Cardiothoracic Vascular Surgery) | DX: E11.621 Type 2 diabetes mellitus with foot ulcer (principal); L97.412 Non-pressure chronic ulcer of right heel and midfoot with fat layer exposed | CPT/HCPCS: 11042; 11045; L4631 ==

== ENCOUNTER 2021-01-26 13:35 | Outpatient (CLI) | payer MEDICARE, SELFPAY | END 2021-01-26 13:36 | disposition home or self-care (01) | LOC: WOUND 13:36 | PROVIDERS: PCP Family Medicine; Visit Provider Thoracic Surgery (Cardiothoracic Vascular Surgery) | DX: E11.621 Type 2 diabetes mellitus with foot ulcer (principal); L97.412 Non-pressure chronic ulcer of right heel and midfoot with fat layer exposed | CPT/HCPCS: 11042; 11045 ==

== ENCOUNTER 2021-02-10 13:30 | Outpatient (CLI) | payer MEDICARE, SELFPAY | END 2021-02-10 13:31 | disposition home or self-care (01) | LOC: WOUND 13:34 | PROVIDERS: PCP Family Medicine; Visit Provider Thoracic Surgery (Cardiothoracic Vascular Surgery) | DX: E11.621 Type 2 diabetes mellitus with foot ulcer (principal); L97.412 Non-pressure chronic ulcer of right heel and midfoot with fat layer exposed | CPT/HCPCS: 11042; 11045 ==

== ENCOUNTER 2021-02-23 13:06 | Outpatient (CLI) | payer MEDICARE, SELFPAY | END 2021-02-23 13:07 | disposition home or self-care (01) | LOC: WOUND 13:07 | PROVIDERS: PCP Family Medicine; Visit Provider Thoracic Surgery (Cardiothoracic Vascular Surgery) | DX: E11.621 Type 2 diabetes mellitus with foot ulcer (principal); L97.512 Non-pressure chronic ulcer of other part of right foot with fat layer exposed | CPT/HCPCS: 11042; 11045; 87070; 87077; 87186 ==

== ENCOUNTER 2021-09-15 10:03 | Outpatient (RCR) | payer MEDICARE, SELFPAY | END 2021-09-19 23:59 | disposition home or self-care (01) | LOC: SOT 10:03 | PROVIDERS: PCP Family Medicine; Visit Provider Family Medicine | DX: M86.171 Other acute osteomyelitis, right ankle and foot (principal) | CPT/HCPCS: 97167; 97530 ==

== ENCOUNTER 2023-06-06 13:17 | Outpatient (RCR) | payer MEDICARE, SELFPAY ==
[2023-05-24 13:55] VITALS: BP 207/71; PULSE 18; RESP 18; TEMP 36.4; O2SAT 93
--- NOTE | 2023-05-24 13:55 | PC.NURSE ---
Pt referral from [facility], Dr. Padgett, for PICC line placement and Ertapenem 500 mg IV x 14 days due to chronic bacteriuria. Pt with very large upper arms. Mid-arm circumference of right arm measured 10 cm from right AC noted to be 39 cm. Basilic vein very deep upon ultrasound assessment. Cephalic vein assessed and noted to be 3.5 mm, straight, and best choice for placement. Unable to pass catheter to SVC. Line converted to midline. Pt states the last PICC she had placed was with IR. She states she has had midlines in the past and they worked well. Trimmed cath length 10 cm with 0 cm external length noted. Good blood return. Pt tolerated first dose of Ertapenem without difficulty. Dr. Padgett's office notified of midline placement.
[2023-05-24 14:46] LABS: Basophils % 0.4 %; Eosinophils # 0.2 10^3/uL (0.0-0.8); Eosinophils % 2.1 %; Hematocrit 31.1 % (37.0-47.0); Hemoglobin 10.1 g/dL (11.5-15.3); Lymphocytes # 1.7 10^3/uL (0.8-4.8); Lymphocytes % 15.6 %; Mean Corpuscular HGB Conc 32.5 g/dL (30.0-36.0); Mean Corpuscular Hemoglobin 28.7 pg (28.0-34.0); Mean Corpuscular Volume 88.4 fl (81-99); Mean Platelet Volume 9.8 fL (7.4-10.4); Monocytes # 0.5 10^3/uL (0.2-0.9); Monocytes % 4.6 %; Neutrophils # 8.36 10^3/uL (1.8-7.7); Neutrophils % 76.9 %; Nucleated Red Blood Cells % 0 %; Platelet Count 192 10^3/cmm (130-400); Red Blood Count 3.52 10^6/uL (4.1-5.3); Red Cell Distribution Width 14.9 % (12.1-15.1); White Blood Count 10.9 10^3/uL (4.0-10.0)
[2023-05-25 14:10] VITALS: BP 212/73; PULSE 66; RESP 18; TEMP 36.1; O2SAT 97
[2023-05-26 13:22] VITALS: BP 156/65; PULSE 70; RESP 18; TEMP 36.2; O2SAT 95
[2023-05-27 10:21] VITALS: BP 194/61; PULSE 64; RESP 18; TEMP 36.3; O2SAT 98
[2023-05-28 10:33] VITALS: BP 170/64; PULSE 62; RESP 16; TEMP 36.4; O2SAT 97
[2023-05-29 13:26] VITALS: BP 159/68; PULSE 69; RESP 18; TEMP 36.1; O2SAT 96
[2023-05-30 13:36] VITALS: BP 177/75; PULSE 73; RESP 18; TEMP 36.2; O2SAT 94
[2023-05-31 13:00] VITALS: BP 139/63; PULSE 71; RESP 18; TEMP 36.3; O2SAT 92
[2023-05-31 13:08] VITALS: BP 139/63; PULSE 71; RESP 18; TEMP 36.3; O2SAT 97
[2023-06-01 10:29] VITALS: BP 164/59; PULSE 66; RESP 18; TEMP 36.2; O2SAT 97
[2023-06-02 13:29] VITALS: BP 155/74; PULSE 68; RESP 16; TEMP 36.4; O2SAT 94
[2023-06-03 08:55] VITALS: BP 174/63; PULSE 68; RESP 16; TEMP 36.1; O2SAT 95
[2023-06-04 08:25] VITALS: BP 173/78; PULSE 67; RESP 18; TEMP 36.2; O2SAT 96
[2023-06-05 13:08] VITALS: BP 117/63; PULSE 67; RESP 18; TEMP 36.5; O2SAT 94
[2023-06-06 13:20] VITALS: BP 169/78; PULSE 67; RESP 20; TEMP 36.2; O2SAT 93
== END 2023-06-19 23:59 | disposition home or self-care (01) ==
LOC: GILAB 13:17
PROVIDERS: PCP Family Medicine; Visit Provider Internal Medicine
DX: R82.71 Bacteriuria (principal); Z16.24 Resistance to multiple antibiotics; Z95.828 Presence of other vascular implants and grafts; Z79.899 Other long term (current) drug therapy
CPT/HCPCS: 36569; 36592; 85025; 96365; J1335

== ENCOUNTER 2023-11-14 13:00 | Oncology outpatient (recurring) (ONCR) | payer MEDICARE, SELFPAY ==
[2023-11-07 15:13] VITALS: BP 160/75; PULSE 67; RESP 18; TEMP 36.8; O2SAT 92
[2023-11-07 16:50] VITALS: BP 169/63; PULSE 65; RESP 17; TEMP 36.5; O2SAT 98
[2023-11-08 16:00] VITALS: BP 186/71; PULSE 74; RESP 18; TEMP 36.6; O2SAT 98
--- NOTE | 2023-11-12 13:26 | SUR.PREOP ---
called both phone numbers on pt's chart and first one not taking calls at this time and spouse's voicemail full,texted sp shah rn about how long i should wait and no response, call placed to joss house keeper and spoke with Veronica about pt and verbalized understanding
--- NOTE | 2023-11-13 13:30 | PC.NURSE ---
Addendum entered by Fredis Mccormick RN 11/13/23 13:30: Made no contact. Spoke with Katelyn, research greenhouse supervisor and advised of situation, # Original Note: Called listed phone #'s for patient. m
== END 2023-11-19 23:59 | disposition home or self-care (01) ==
PROVIDERS: PCP Family Medicine; Visit Provider Internal Medicine
DX: Z53.9 Procedure and treatment not carried out, unspecified reason (principal)
CPT/HCPCS: 96365; 96413; J1580

== ENCOUNTER 2024-12-25 14:47 | Inpatient (IN) | payer MEDICARE, MEDICAID, SELFPAY ==
[2024-12-25] VITALS (42 sets, daily range): BP systolic 89–201; BP diastolic 51–142; PULSE 74–169; RESP 8–36; TEMP 36.1–37.3; O2SAT 92–100
--- NOTE | 2024-12-25 14:51 | XR_ITS ---
WS: [id number] Portable AP upright chest, 12/25/2024 Clinical Data: Shortness of breath Comparison: Portable chest, 08/28/2020 Findings: The heart is enlarged. No nodules, masses or effusions are seen. No pneumonia or pneumothorax is present. There is a dialysis catheter entering the right internal jugular vein and ending at the caval atrial junction. The aortic arch shows tortuosity. There is a posterior thoracic fusion. XR/XR chest 1V portable [id number] Impression: Atherosclerosis and cardiomegaly.
--- NOTE | 2024-12-25 15:01 | ECG_ITS ---
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 Measurements Intervals [place] Rate: 100 P: 65 MO: 174 QRS: 21 QRSD: 101 T: 11 QT: 331 QTc: 427 Interpretive Statements SINUS TACHYCARDIA LOW QRS VOLTAGE IN PRECORDIAL LEADS [QRS DEFLECTION < 1.0 mV IN CHEST LEADS] POSSIBLE ANTERIOR MYOCARDIAL INFARCTION , PROBABLY OLD [30 ms Q WAVE IN V3/V4, OR R < 0.2 mV IN V4] Compared to ECG 08/27/2020 11:51:42 No significant changes Electronically Signed On 12-26-2024 21:57:16 RESTAURANT KITCHEN MANAGER by Michael Dewey M.D. [email or web address]
--- NOTE | 2024-12-25 15:02 | W.ED.WEAKNES ---
HPI - Weakness General: Chief complaint: Weakness Stated complaint: N/V Fever Time Seen by Provider: 12/25/24 14:48 History of Present Illness: 64-year-old female with a history of end-stage renal disease on dialysis, obstructive sleep apnea, obesity, hypertension, chronic back pain, diabetes and diastolic heart failure who presents the emergency room by ambulance with confusion and shortness of breath. Apparently her is in the hospital with RSV in [place] and he normally does her dialysis. There is no one else to do it. Apparently they do home hemodialysis. She is somewhat confused. 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 Skin: Warm, dry_. Nursing reports she is covered in feces. Head: Normocephalic, atraumatic. Neck: Supple, trachea midline. Eye: Extraocular movements are intact. Ears, nose, mouth and throat: Extremely dry oral mucosa Cardiovascular: Regular rate and rhythm, Normal peripheral perfusion. Respiratory: Lungs are clear to auscultation, respirations are non-labored, breath sounds are equal, Symmetrical chest wall expansion. Gastrointestinal: Soft, Nontender, Non distended, Normal bowel sounds. Musculoskeletal: Normal ROM, no deformity. Neurological: Patient is oriented to person and place. Follows commands. No focal neurological deficit observed. Psychiatric: Normal affect Course Vital Signs: Vital signs: Vital Signs Temperature 97.0 F L 12/25/24 14:48 Pulse Rate 74 12/25/24 15:28 Respiratory Rate 17 12/25/24 15:28 Blood Pressure 199/78 12/25/24 15:28 Pulse Oximetry 93 12/25/24 15:28 Oxygen Delivery Me thod Room Air 12/25/24 14:48 MDM - Weakness Medical Decision Making Differential diagnosis for patient with shortness of breath includes but is not limited to and based on the above HPI, review of systems and physical exam: Pneumonia. Bronchitis. Asthma or COPD with acute exacerbation. Acute coronary syndrome / RI. Pulmonary embolism. Anxiety. Congestive heart failure. Viral infections including influenza and Covid-19. Atrial fibrillation. Anxiety. Pleural effusion. Pneumothorax. Orders placed to evaluate differential diagnosis based on the above differential, HPI and physical exam EKG: Time 1501. Rate 100. Sinus tachycardia, No ST-T changes, no ectopy, normal TN & QRS intervals, This was reviewed and interpreted by myself the ER physician at 1505. No peaked T's or dysrhythmia at this time. AB.3 with an O2 sat of 93% on room air Chest x-ray: Cardiomegaly. No acute process. No infiltrate. No pneumothorax. This was reviewed and interpreted by myself the emergency room physician. I also reviewed the radiology report. Lab Review: Laboratory results were reviewed and interpreted by myself the emergency room physician. No leukocytosis. Slightly worsened anemia from past. With a hemoglobin of 8. Platelets are low at 81. BUN and creatinine are extremely elevated to the 124 and 13.7. Potassium is elevated at 7.1. Of note she does not have any EKG changes. I reviewed the patient's medical record. Reexamination: Patient remains alert. She is able to follow commands and knows her name and where she is and where her is etc. No oxygen requirements at this time. No dysrhythmias while she is been here. No increased work of breathing. Consultation: I spoke with Dr. Ramires is on-call for the hospitalist service. He request the patient be admitted to the intensive care unit. Consultation: I have consulted nephrology for urgent dialysis. Assessment and plan: ESRD on dialysis Hyperkalemia Uremia Respiratory syncytial virus ?Kayexalate, 10 units insulin, calcium gluconate. Patient sugars 350 right now so holding on any D10 with insulin. -I discussed the patient with the hospitalist on-call who is admitting the patient. - Discussed findings and plan with patient. Answered any questions. - All laboratory values were reviewed and interpreted personally by myself, the ER physician - All imaging was reviewed and interpreted personally by myself, the ER physician. - Evaluation and treatment of this problem were appropriate in the emergency setting Lab Data 12/25/24 15:09 12/25/24 15:09 Radiology Impressions Chest X-Ray 12/25/24 14:51 Impression: Atherosclerosis and cardiomegaly. Laboratory Results WBC 9.27 10^3/uL (3.29-11.43) 12/25/24 15:09 RBC 2.71 10^6/uL (3.85-5.65) L 12/25/24 15:09 Hgb 8.00 g/dL (11.27-16.99) L 12/25/24 15:09 Hct 24.7 % (36-47) L 12/25/24 15:09 MCV 91.1 fl (85-98) 12/25/24 15:09 MCH 29.5 pg (27-33) 12/25/24 15:09 MCHC 32.4 g/dL (30-55) 12/25/24 15:09 RDW 14.1 % (12.1-15.1) 12/25/24 15:09 Plt Count 81 10^3/cmm (157-399) L 12/25/24 15:09 MPV 11.5 fL (7.4-10.4) H 12/25/24 15:09 Neut % (Auto) 85.3 % 12/25/24 15:09 Lymph % (Auto) 9.1 % 12/25/24 15:09 Waldo % (Auto) 5.0 % 12/25/24 15:09 Eos % (Auto) 0.0 % 12/25/24 15:09 Baso % (Auto) 0.2 % 12/25/24 15:09 Neut # (Auto) 7.91 10^3/uL (1.8-7.7) H 12/25/24 15:09 Lymph # (Auto) 0.8 10^3/uL (0.8-4.8) 12/25/24 15:09 Waldo # (Auto) 0.5 10^3/uL (0.2-0.9) 12/25/24 15:09 Eos # (Auto) 0.0 10^3/uL (0.0-0.8) 12/25/24 15:09 Baso # (Auto) 0.0 10^3/uL (0.0-0.1) 12/25/24 15:09 Nucleated RBC % (auto) 0 % 12/25/24 15:09 Nucleated RBCs # 0.0 /100WBC 12/25/24 15:09 Specimen Type Arterial 12/25/24 15:19 Sample Site Brachial, left 12/25/24 15:19 ABG pH 7.30 (7.35-7.45) L 12/25/24 15:19 ABG pCO2 30.1 mmHg (35-45) L 12/25/24 15:19 ABG pO2 69.2 mmHg (80.0-100.0) L 12/25/24 15:19 ABG PO2/FiO2 Ratio 247 12/25/24 15:19 ABG HCO3 14.9 mmol/L (22-26) L 12/25/24 15:19 ABG O2 Saturation 93.1 12/25/24 15:19 ABG Base Excess -10.4 mmol/L (-2.0-2.0) L 12/25/24 15:19 Seun Test N/a 12/25/24 15:19 A-a O2 Gradient 11.8 mmHg (5-10) H 12/25/24 15:19 Hematocrit 26.1 % (37-47) L 12/25/24 15:19 Hgb O2 Saturation 90.2 % (95-100) L 12/25/24 15:19 Carboxyhemoglobin 1.7 %THgb (0.4-20.1) 12/25/24 15:19 Methemoglobin 1.3 % (0.4-1.5) 12/25/24 15:19 Total Hemoglobin 8.5 g/dL (12-16) L 12/25/24 15:19 Sodium 128.0 mmol/L (131-143) L 12/25/24 15:19 Potassium 7.0 mmol/L (3.5-5.0) H 12/25/24 15:19 Glucose 353.0 mg/dL (70-115) H 12/25/24 15:19 Ionized Calcium 1.0 mmol/L (1.1-1.4) L 12/25/24 15:19 O2 Delivery Device Nc 12/25/24 15:19 O2 Liters/Min 2.0 % 12/25/24 15:19 FiO2 28.0 % 12/25/24 15:19 Environmental Health And Safety Leader ID Broma 12/25/24 15:19 Sodium 127 mmol/L (136-145) L 12/25/24 15:09 Potassium 7.1 mmol/L (3.5-5.1) H* 12/25/24 15:09 Chloride 86 mmol/L (98-107) L 12/25/24 15:09 Carbon Dioxide 14 mmol/L (22-29) L 12/25/24 15:09 Anion Gap 34.1 (5-19) H 12/25/24 15:09 BUN 124 mg/dL (8-23) H* D 12/25/24 15:09 Creatinine 13.7 mg/dL (0.5-0.9) H* 12/25/24 15:09 GFR Calculation 2.7 mL/min (90-130) L 12/25/24 15:09 Glucose 342 mg/dL (65-115) H 12/25/24 15:09 Calculated Osmolality 317 mOsm/kg (285-295) H 12/25/24 15:09 Lactic Acid 2.4 mmol/L (0.5-2.2) H 12/25/24 15:09 Calcium 8.0 mg/dL (8.5-10.5) L 12/25/24 15:09 Phosphorus 6.7 mg/dL (2.5-4.5) H 12/25/24 15:09 Magnesium 2.6 mg/dL (1.7-2.3) H 12/25/24 15:09 Total Bilirubin 1.1 mg/dL (0.15-1.2) 12/25/24 15:09 AST 105 U/L (0-32) H 12/25/24 15:09 ALT 169 U/L (0-33) H 12/25/24 15:09 Alkaline Phosphatase 289 U/L (35-105) H 12/25/24 15:09 Troponin T Baseline 191 ng/L (0-10) H* 12/25/24 15:09 Total Protein 6.9 g/dL (6.6-8.7) 12/25/24 15:09 Albumin 3.2 g/dL (3.5-5.2) L 12/25/24 15:09 Globulin 3.7 g/dL (1.3-4.6) 12/25/24 15:09 Coronavirus (PCR) Negative (Negative) 12/25/24 15:12 Influenza A (PCR) Negative (Negative) 12/25/24 15:12 Influenza Type B (PCR) Negative (Negative) 12/25/24 15:12 RSV (PCR) Positive (Negative) A 12/25/24 15:12 All radiology interpretation(s) finalized by discharge Discharge Plan Discharge Patient Disposition: Admitted As Inpatient Clinical Impression: End stage renal disease on dialysis, Acute hyperkalemia, Uremia, Respiratory syncytial virus Condition: Stable Coding Level of Care Code ED Field Clerk for Chg Fwd Related Data Home Medications ?Medication ?Instructions ?Recorded ?Confirmed albuterol sulfate 2.5 mg/3 mL 2.5 mg inhalation Q6H 12/25/24 12/25/24 (0.083 %) solution for nebulization apixaban 5 mg tablet (Eliquis) 5 mg PO BID 12/25/24 12/25/24 calcitriol 0.25 mcg capsule 0.25 mcg PO DAILY 12/25/24 12/25/24 calcitriol 0.5 mcg capsule 0.5 mcg PO DAILY 12/25/24 12/25/24 hydralazine 50 mg tablet 50 mg PO TID 12/25/24 12/25/24 hydrocodone 7.5 mg-acetaminophen 1 - 2 tab PO .Q4-6H 12/25/24 12/25/24 325 mg tablet insulin glargine U-300 conc 300 25 unit SUBCUT BID 12/25/24 12/25/24 unit/mL (3 mL) subcutaneous pen (Toujeo Max U-300 SoloStar) insulin lispro 100 unit/mL 22 unit SUBCUT .WITH EACH MEAL 12/25/24 12/25/24 subcutaneous pen ipratropium bromide 42 mcg (0.06 2 spray intranasal TID 12/25/24 12/25/24 %) nasal spray levothyroxine 112 mcg tablet 112 mcg PO DAILY 12/25/24 12/25/24 metoprolol tartrate 25 mg tablet 25 mg PO BID 12/25/24 12/25/24 pregabalin 25 mg capsule 25 mg PO DAILY 12/25/24 12/25/24 ropinirole 0.25 mg tablet 0.25 mg PO TID 12/25/24 12/25/24 ropinirole 0.5 mg tablet 0.5 mg PO TID 12/25/24 12/25/24 semaglutide 2 mg/dose (8 mg/3 mL) 2 mg SUBCUT Q7D 12/25/24 12/25/24 subcutaneous pen injector (Ozempic) vitamin B complex and vitamin C 1 cap PO DAILY 12/25/24 12/25/24 no.20-folic acid 1 mg capsule ([place] Caps) Allergies Allergy/AdvReac Type Severity Reaction Status Date / Time bumetanide Allergy Unknown Unknown Verified 09/17/24 14:03 sulfamethoxazole (From Allergy Unknown Unknown Verified 04/08/21 14:06 Bactrim) trimethoprim (From Bactrim) Allergy Unknown Unknown Verified 04/08/21 14:06 levofloxacin (From Levaquin) Allergy ADR-Itching Verified 04/08/21 14:06 NSAIDS (Non-Steroidal Allergy Unknown Verified 04/08/21 14:06 Anti-Inflamma
[2024-12-25 15:32] LABS: ABG PCO2 30.1 mmHg (35-45); Alveolar-Arterial Oxygen Gradi 11.8 mmHg (5-10); Arterial Blood Gas Hematocrit 26.1 % (37-47); Base Excess ABG -10.4 mmol/L (-2.0-2.0); Blood Gas Operator Identificat BROMA; Blood Gas Sample Site Brachial, left; Blood Gas Sample Type Arterial; Carboxyhemoglobin 1.7 %THgb (0.4-20.1); HCO3 ABG 14.9 mmol/L (22-26); HGB O2 Sat 90.2 % (95-100); Methemoglobin 1.3 % (0.4-1.5); Oxygen Device NC; Oxygen Saturation ABG 93.1; PO2 ABG 69.2 mmHg (80.0-100.0); PO2 FiO2 Ratio Arterial Blood 247; Total Hemoglobin 8.5 g/dL (12-16)
[2024-12-25 15:33] LABS: Basophils % 0.2 %; Hematocrit 24.7 % (36-47); Lymphocytes # 0.8 10^3/uL (0.8-4.8); Lymphocytes % 9.1 %; Mean Corpuscular HGB Conc 32.4 g/dL (30-55); Mean Corpuscular Hemoglobin 29.5 pg (27-33); Mean Corpuscular Volume 91.1 fl (85-98); Mean Platelet Volume 11.5 fL (7.4-10.4); Monocytes # 0.5 10^3/uL (0.2-0.9); Neutrophils # 7.91 10^3/uL (1.8-7.7); Neutrophils % 85.3 %; Nucleated Red Blood Cells % 0 %; Platelet Count 81 10^3/cmm (157-399); Red Blood Count 2.71 10^6/uL (3.85-5.65); Red Cell Distribution Width 14.1 % (12.1-15.1); White Blood Count 9.27 10^3/uL (3.29-11.43)
[2024-12-25 15:54] LABS: Lactic Sepsis W/Reflex 2.4 mmol/L (0.5-2.2)
[2024-12-25 15:59] LABS: Troponin(5th) Baseline 191 ng/L (0-10)
[2024-12-25 16:08] LABS: Alanine Aminotransferase 169 U/L (0-33); Albumin Level 3.2 g/dL (3.5-5.2); Alkaline Phosphatase 289 U/L (35-105); Carbon Dioxide 14 mmol/L (22-29); Chloride 86 mmol/L (98-107); Creatinine Clr Calc Pharmacy 4.9853; Globulin 3.7 g/dL (1.3-4.6); Glomerular Filtration Rate 2.7 mL/min (90-130); Glucose 342 mg/dL (65-115); Magnesium 2.6 mg/dL (1.7-2.3); Phosphorus 6.7 mg/dL (2.5-4.5); Sodium 127 mmol/L (136-145); Total Bilirubin 1.1 mg/dL (0.15-1.2); Total Protein 6.9 g/dL (6.6-8.7)
[2024-12-25 16:15] LABS: Influenza A NEGATIVE (Negative); Influenza B NEGATIVE (Negative); SARS-CoV-2 PCR NEGATIVE (Negative)
[2024-12-25 16:16] LABS: Anion Gap 34.1 (5-19); Aspartate Amino Transferase 105 U/L (0-32); Osmolality Calculated 317 mOsm/kg (285-295)
[2024-12-25 16:17] LABS: Blood Urea Nitrogen 124 mg/dL (8-23); Potassium 7.1 mmol/L (3.5-5.1)
--- NOTE | 2024-12-25 16:21 | ECG_ITS ---
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 Measurements Intervals [place] Rate: 100 P: 50 TX: 173 QRS: 6 QRSD: 100 T: 9 QT: 330 QTc: 427 Interpretive Statements SINUS TACHYCARDIA POSSIBLE ANTERIOR MYOCARDIAL INFARCTION , PROBABLY OLD [30 ms Q WAVE IN V3/V4, OR R < 0.2 mV IN V4] Compared to ECG 12/25/2024 15:01:31 No significant changes Electronically Signed On 12-26-2024 22:18:42 PERSONNEL CLERK by Michael Dewey M.D. [email or web address]
[2024-12-25 16:43] LABS: Respiratory Syncytial Virus Ce POSITIVE (Negative)
--- NOTE | 2024-12-25 16:44 | PM.HP ---
Providers/Chief Complaint Primary Care Provider: Lexis Ring MD Chief Complaint: N/V Fever History of Present Illness Berenice Pierce is a 64 year old female with past medical history of end-stage renal disease on home hemodialysis, type 2 diabetes mellitus, staff epidermidis bacteremia, hypertension, diastolic heart failure chronically on anticoagulation with Eliquis, hypothyroidism was brought to the ER today by her son from home because of worsening hypoxia, generalized weakness, difficulty breathing and poor mentation. As per the patient and son at bedside patient's who usually manages at home dialysis is admitted at ICU in [facility] with respiratory failure due to RSV for last 1 week she has not been able to do her hemodialysis. Patient has been complaining of difficulty in breathing along with cough with increase on oxygen supplementation up to 3 to 4 L from her baseline 2 L recently. On examination patient is awake and alert, denies any chest pain on 4 L saturating 92% with a blood pressure of 140/50 systolic, heart rate of 98 bpm. Review of Systems General: Reports: 10 or more systems reviewed and unremarkable except in HPI and below Const: Denies: fever(s), chills, body aches, change in appetite, change in weight, malaise, night sweats, diaphoresis, change in sleep pattern, daytime sleepiness or snoring Eyes: Denies: change in vision, blurry vision, photophobia, eye discomfort or eye discharge ENMT: Denies: throat pain, enlarged tonsils, hoarseness, mouth pain, oral sores, dry mouth, tinnitus, nasal congestion or post nasal drip Card: Denies: chest pain, palpitations, irregular heart rhythm, edema, swelling of feet/ankles, lightheadedness, syncope, pre-syncope, dyspnea on exertion, orthopnea, leg pain with exertion or acrocyanosis Resp: Denies: dyspnea, productive cough, non-productive cough, wheezing, stridor, pain on inspiration, change in phlegm color, hemoptysis or chest congestion GI: Denies: abdominal pain, nausea, vomiting, hematemesis, coffee ground emesis, dysphagia, heartburn, diarrhea, constipation, bloating, GI cramping, change in bowel habits, pain on defecation, hematochezia or melena : Denies: flank pain, dysuria, urinary frequency, urinary urgency, urinary hesitancy, nocturia or hematuria Musc: Denies: neck pain, back pain, extremity pain, joint pain, joint swelling, joint redness, joint stiffness or limited range of motion Neuro: Denies: headache(s), numbness in extremities, weakness in extremities, sensory changes, lack of coordination, difficulty walking, frequent falls, dizziness, vertigo, confusion, Slurred speech present, difficulty communicating thoughts or seizure-like activity Psych: Denies: anxiety, depression, mood swings, panic attacks, hopelessness or irritability Endo: Denies: polyuria, polydipsia, tired all the time, cold intolerance, excessive sweating, flushing or heat intolerance Shawn/Lymph: Denies: easy bruising or easy bleeding All/Imm: Denies: tongue swelling, facial swelling or acute wheezing Medications/Allergies Home Medications ?Medication ?Instructions ?Recorded ?Confirmed ?Last Taken ?Type albuterol sulfate 2.5 mg/3 mL 2.5 mg inhalation Q6H 12/25/24 12/25/24 Unknown History (0.083 %) solution for nebulization apixaban 5 mg tablet (Eliquis) 5 mg PO BID 12/25/24 12/25/24 Unknown History calcitriol 0.25 mcg capsule 0.25 mcg PO DAILY 12/25/24 12/25/24 Unknown History calcitriol 0.5 mcg capsule 0.5 mcg PO DAILY 12/25/24 12/25/24 Unknown History hydralazine 50 mg tablet 50 mg PO TID 12/25/24 12/25/24 Unknown History hydrocodone 7.5 mg-acetaminophen 1 - 2 tab PO .Q4-6H 12/25/24 12/25/24 Unknown History 325 mg tablet insulin glargine U-300 conc 300 25 unit SUBCUT BID 12/25/24 12/25/24 Unknown History unit/mL (3 mL) subcutaneous pen (Toujeo Max U-300 SoloStar) insulin lispro 100 unit/mL 22 unit SUBCUT .WITH EACH MEAL 12/25/24 12/25/24 Unknown History subcutaneous pen ipratropium bromide 42 mcg (0.06 2 spray intranasal TID 12/25/24 12/25/24 Unknown History %) nasal spray levothyroxine 112 mcg tablet 112 mcg PO DAILY 12/25/24 12/25/24 Unknown History metoprolol tartrate 25 mg tablet 25 mg PO BID 12/25/24 12/25/24 Unknown History pregabalin 25 mg capsule 25 mg PO DAILY 12/25/24 12/25/24 Unknown History ropinirole 0.25 mg tablet 0.25 mg PO TID 12/25/24 12/25/24 Unknown History ropinirole 0.5 mg tablet 0.5 mg PO TID 12/25/24 12/25/24 Unknown History semaglutide 2 mg/dose (8 mg/3 mL) 2 mg SUBCUT Q7D 12/25/24 12/25/24 Unknown History subcutaneous pen injector (Ozempic) vitamin B complex and vitamin C 1 cap PO DAILY 12/25/24 12/25/24 Unknown History no.20-folic acid 1 mg capsule (Meagher Caps) Allergies Allergy/AdvReac Type Severity Reaction Status Date / Time bumetanide Allergy Unknown Unknown Verified 09/17/24 14:03 sulfamethoxazole (From Allergy Unknown Unknown Verified 04/08/21 14:06 Bactrim) trimethoprim (From Bactrim) Allergy Unknown Unknown Verified 04/08/21 14:06 levofloxacin (From Levaquin) Allergy ADR-Itching Verified 04/08/21 14:06 NSAIDS (Non-Steroidal Allergy Unknown Verified 04/08/21 14:06 Anti-Inflamma PFSH Acute PFSH: Medical History Lumbar stenosis with neurogenic claudication Seizure PRES (posterior reversible encephalopathy syndrome) RLS (restless legs syndrome) TARA (obstructive sleep apnea) Chronic antibiotic suppression Staphylococcus epidermidis bacteremia Diastolic heart failure H/O staphylococcal septicemia Hyperglycemia Cellulitis Thyroid disease Chronic back pain Renal failure HTN (hypertension) Obesity Surgical History 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 H/O: hysterectomy Arteriovenous fistula History of tonsillectomy History of cholecystectomy History of back surgery History of appendectomy History of adenoidectomy Family History Other Cancer Social History Smoking and tobacco/nicotine status: never used tobacco/nicotine Alcohol intake: never Substance/Drug Use: never Lives independently: Yes Household members: spouse Housing: House Marital status: Vitals/I&O/Wt Last Vital Signs Temp 97.0 F L 12/25/24 14:48 Pulse 74 12/25/24 15:28 Resp 17 12/25/24 15:28 BP 199/78 12/25/24 15:28 Pulse Ox 93 12/25/24 15:28 O2 Del Method Room Air 12/25/24 14:48 Weight last 48 hrs Weight 113.398 kg Physical Exam Narrative: General: No acute distress, AO x3, acute on chronic sick appearing, nasal cannula, hemodialysis catheter present in right hemithorax HEENT: PERRLA, pupils bilaterally equal and reactive Chest: Normal vesicular breath sounds, decreased air entry bilaterally lower zone, fine crackles in lower zone, equal good air entry bilaterally CVS: S1-S2 regular, no murmurs, no tachycardia, no gallops, no rubs Abdomen: Soft, nontender, no organomegaly, bowel sounds present Neuro: No focal deficits, no facial deformity, AO x3, power 5/5 in all limbs Data 12/25/24 15:09 12/25/24 15:09 A&P Assessment and plan (1) Acute hyperkalemia: (2) Metabolic acidosis: (3) Missed dialysis: (4) End stage renal disease on dialysis: (5) Uremia: (6) Acute and chronic respiratory failure with hypoxia: (7) Respiratory syncytial virus: (8) Diastolic heart failure: (9) HTN (hypertension): (10) TARA (obstructive sleep apnea): (11) Type 2 diabetes mellitus: (12) H/O staphylococcal septicemia: (13) Elevated troponin: (14) Poor intravenous access: Plan 64-year-old female with past medical history of end-stage renal disease on home hemodialysis presents to the ER today because of worsening hypoxia, weakness due to missed home dialysis as caregiver is admitted to another hospital for respiratory failure found to have renal failure with metabolic acidosis, hyperkalemia and hypoxic respiratory failure due to RSV. Hyperkalemia/metabolic acidosis/uremia/renal failure/hyponatremia: Most likely in setting of missed home dialysis for over 1 week. Nephrology consulted from the ER. Plan for emergent dialysis. Check urinalysis, urine lites. Tejada catheterization. Strict and proper charting, daily weights. Fluid restriction to less than 5000 cc. Treatment of hyperkalemia with 1 g of IV calcium gluconate, 10 of IV insulin. Patient is hyperglycemic for now. Sodium bicarbonate 100 mEq one-time Repeat BMP postdialysis. Metabolic acidosis with a pH of 7.21 most likely in setting of renal failure. Check ketones. Sodium bicarb as above. Continue to monitor daily. Hypervolemic hyponatremia most likely in setting of missed dialysis. Will continue to monitor. Acute on chronic hypoxic respiratory failure: Chronically on 2 L. Currently on 4 L. Most likely combination of congestive heart failure and RSV bronchitis. Check MRSA swab, sputum culture, blood culture, Trend procalcitonin, lactic acid level, D-dimer. Stat CT chest abdomen pelvis without contrast. Empirically start patient on IV vancomycin and Zosyn for now. If blood cultures and cultures remain negative will discontinue IV antibiotics. Does have past history of staff epidermidis bacteremia. Start patient on Pulmicort twice daily, DuoNeb every 6 hour Solu-Medrol 40 mg every 6 hour. Type 2 diabetes mellitus: Does have hyperglycemia. Checking ketones. If ketones are negative will restart home dose of Lantus and Humalog. Most likely patient will have uncontrolled hyperglycemia is also requiring steroids. Will uptitrate Lantus insulin requirements in next 24 hours. Check A1c. Elevated troponin: Most likely with concerns for demand ischemia. Cycle troponin. Patient denies any chest pain. Check echocardiogram. If concerns for regional wall motion normality will plan for heparin drip. For now we will hold off. Hypertension: Goal blood pressure less than 140/90 mmHg. Takes hydralazine 50 mg 3 times daily, metoprolol 25 mg twice daily at home. For now we will continue with metoprolol. Will restart hydralazine as per blood pressures. IV hydralazine 10 mg every 4 hours as needed for systolic blood pressure more than 160 mmHg. Chronic anticoagulation: Not sure of the reason. Will confirm with patient and family. For now we will continue with Eliquis 5 mg twice daily. Continue other chronic home medications including levothyroxine, pregabalin, Requip. Analgesia: Home dose of [place], Tylenol as needed Glycemic control: Lantus 22 units twice daily as per home dose, insulin sliding scale at moderate dose protocol Nutrition: Renal diabetic dialysis diet CODE STATUS: Full code. Patient's son will be the DPOA. is also DPOA but he is intubated at another hospital for now. PUD prophylaxis: Protonix DVT prophylaxis: Eliquis will be sufficient for DVT prophylaxis. Discharge planning: Home with caregiver versus SNF depending on clinical picture going forward. Patient's is the primary caregiver and does home dialysis as admitted at another hospital. Can plan for discharge to home with home health and outpatient dialysis set up while comes back home. Admit to ICU. This documentation was created by [employer] sorter packer software. Every effort was made to ensure accuracy of sorter packer. Any obvious errors or omissions should be clarified with the author of the document. PDMP PDMP Reviewed: Last Reviewed 12/25/24 17:41 by Jovanni Ramires MD Attestations Medical Necessity Statement*: Admission for more than 2 midnights for management of renal failure in setting of missed dialysis, acute hyperkalemia, hyponatremia, uremia with metabolic acidosis, acute on chronic hypoxia in setting of RSV, uncontrolled hyperglycemia while DKA is ruled out Critical Care Time: The high probability of a clinically significant, sudden or life threatening deterioration of the patient's [renal, pulmonary, cardiac] system(s) required my full and direct attention, intervention and personal management. The critical care time is as shown. This time is in addition to time spent performing any reported procedures but includes the following: [x] Data and vital sign review and interpretation [x] Patient assessment, examination and intervention [x] Documentation [x] Medication orders and management Critical Care Time (min): 95 Coding Level of Care Code Critical Care >/= 30 minutes Critical care time (in minutes): 95 The high probability of a clinically significant, sudden or life threatening deterioration, as referenced in this documentation, required my full and direct attention, intervention and personal management. The critical care time shown is in addition to time spent performing any reported separately billable procedures and includes the following: [x] Data and vital sign review and interpretation [x] Patient assessment, examination and intervention [x] Medication orders and management [x] Patient/Family updates as able [x] Care Coordination and Documentation. Diagnoses Acute hyperkalemia E87.5 Metabolic acidosis E87.20 Missed dialysis End stage renal disease on dialysis N18.6; Z99.2 Uremia N19 Acute and chronic respiratory failure with hypoxia J96.21 Respiratory syncytial virus B33.8 Diastolic heart failure I50.30 HTN (hypertension) I10 TARA (obstructive sleep apnea) G47.33 Type 2 diabetes mellitus E11.9 H/O staphylococcal septicemia Z86.19 Elevated troponin R79.89 Poor intravenous access Z78.9
[2024-12-25] MEDS: insulin regular-human 100 units/1 mL 10 UNIT IVP (17:00)
[2024-12-25] MEDS: sodium polystyrene sulfonate 15 gm/60 mL Btl PO (17:00)
[2024-12-25 17:05] LABS: Glucose Point of Care 375 mg/dL (70-110)
[2024-12-25 17:13] LABS: Reflex Lactate Order REFLEX LACTIC ORDERD
[2024-12-25] MEDS: calcium gluconate 0.1 gm/mL 10% SDV 10mL 1 GM IVP ×2 (17:16)
--- NOTE | 2024-12-25 17:16 | PC.NURSE ---
per Dr. Ramires and Dr. Paz to access pt's dialysis catheter to push remaining calcium gluconate d/t IV infiltration.
[2024-12-25 17:27] LABS: Ketone (Acetest) Serum Negative (Negative)
[2024-12-25] MEDS: methylPREDNISolone sod succ 40 mg/mL INJ IVP ×2 (17:31→22:42)
[2024-12-25] MEDS: FUROsemide 10 mg/mL SDV 10mL 60 MG IVP (17:32)
[2024-12-25 17:38] LABS: D Dimer >= 20.00 ug/mLFEU (0-0.59)
--- NOTE | 2024-12-25 17:44 | CTR_ITS ---
PROCEDURE INFORMATION: Exam: CTA Chest With Contrast Exam date and time: 12/25/2024 8:48 PM Age: 64 years old Clinical indication: Bloating; Shortness of breath; Additional info: Elevated dimer, hypoxia, TECHNIQUE: Imaging protocol: Computed tomographic angiography of the chest with contrast. Exam focused on the arteries. 3D rendering (Not supervised by radiologist): MIP and/or 3D reconstructed images were created by the technologist. Radiation optimization: All CT scans at this facility use at least one of these dose optimization techniques: automated exposure control; mA and/or kV adjustment per patient size (includes targeted exams where dose is matched to clinical indication); or iterative reconstruction. Contrast material: OMNIPAQUE 350; Contrast volume: 100 ml; Contrast route: INTRAVENOUS (IV); COMPARISON: CR XR chest 1V portable [id number] 12/25/2024 2:53 PM RADIATION DOSE METRICS: Total DLP (mGy-cm): 1790.34 FINDINGS: Pulmonary arteries: No pulmonary emboli. Aorta: Unremarkable. No aortic aneurysm. No aortic dissection. Lungs: No focal consolidation. Pleural spaces: Small right-sided pleural effusion. Heart: Unremarkable. No cardiomegaly. No pericardial effusion. Coronary arteries: Coronary arterial atherosclerotic calcifications are present. Lymph nodes: Unremarkable. No enlarged lymph nodes. Bones/joints: Unremarkable. No acute fracture. Soft tissues: Unremarkable. PROCEDURE INFORMATION: Exam: CT Abdomen And Pelvis With Contrast Exam date and time: 12/25/2024 8:48 PM Age: 64 years old Clinical indication: Bloating; Shortness of breath; Additional info: Elevated dimer, hypoxia, TECHNIQUE: Imaging protocol: Computed tomography of the abdomen and pelvis with contrast. Radiation optimization: All CT scans at this facility use at least one of these dose optimization techniques: automated exposure control; mA and/or kV adjustment per patient size (includes targeted exams where dose is matched to clinical indication); or iterative reconstruction. Contrast material: OMNIPAQUE 350; Contrast volume: 100 ml; Contrast route: INTRAVENOUS (IV); COMPARISON: CR XR chest 1V portable [id number] 12/25/2024 2:53 PM RADIATION DOSE METRICS: Total DLP (mGy-cm): 1790.34 FINDINGS: Liver: The liver is diffusely low in attenuation consistent with hepatic steatosis. Gallbladder and biliary ducts: The gallbladder is absent. Pancreas: Normal. No ductal dilation. Spleen: Spleen is enlarged measuring up to 16.0 cm in length. Adrenal glands: Normal. No mass. Kidneys and ureters: Normal. No hydronephrosis. Stomach and bowel: Unremarkable. No obstruction. No mucosal thickening. Appendix: The appendix is not visualized but there are no secondary signs of acute appendicitis. Intraperitoneal space: Unremarkable. No free air. No significant fluid collection. Vasculature: Unremarkable. No abdominal aortic aneurysm. Lymph nodes: Unremarkable. No enlarged lymph nodes. Urinary bladder: There is a Tejada catheter in the bladder. The bladder is decompressed. Reproductive: Hysterectomy. Bones/joints: Posterior fusion at T8, T9, T10 and T11 without evidence of hardware failure or loosening. Soft tissues: Unremarkable. CT/CT angio chest w abd pel w con IMPRESSION: 1. No pulmonary emboli. 2. Small right-sided pleural effusion. 3. No focal consolidation. IMPRESSION: 1. No bowel obstruction or inflammatory process associated with the bowel. 2. No free air or significant free fluid in the abdomen or pelvis. 3. The appendix is not visualized but there are no secondary signs of acute appendicitis.
--- NOTE | 2024-12-25 17:49 | PM.CONSULT ---
Providers/Reason For Consult Consulting Physician/Specialty*: osmani/osmani Reason for Consult*: ESRD Attending Physician: Jovanni Ramires MD Primary Care Provider: Lexis Ring MD History of Present Illness History of Present Illness Berenice Pierce is a 64 year old female Patient is a 64-year-old female with past medical history significant for end-stage renal disease on home hemodialysis 6 days/week, type 2 diabetes, hypertension, diastolic CHF, hypothyroidism was brought to the emergency department because of shortness of breath generalized weakness and altered mental status. Patient was not able to do dialysis at home for the past 1 week. Usually her helps her with home hemodialysis and he was hospitalized at [facility] and since then patient will need to do dialysis. Patient toxic in the ED. Lab data significant for severe hyperkalemia with a potassium of 7.1 sodium was 127 CO2 is 14 BUN 124 and creatinine 13.7. Review of Systems Narrative: negative Medications/Allergies Home Medications ?Medication ?Instructions ?Recorded ?Confirmed ?Last Taken ?Type albuterol sulfate 2.5 mg/3 mL 2.5 mg inhalation Q6H 12/25/24 12/25/24 Unknown History (0.083 %) solution for nebulization apixaban 5 mg tablet (Eliquis) 5 mg PO BID 12/25/24 12/25/24 Unknown History calcitriol 0.25 mcg capsule 0.25 mcg PO DAILY 12/25/24 12/25/24 Unknown History calcitriol 0.5 mcg capsule 0.5 mcg PO DAILY 12/25/24 12/25/24 Unknown History hydralazine 50 mg tablet 50 mg PO TID 12/25/24 12/25/24 Unknown History hydrocodone 7.5 mg-acetaminophen 1 - 2 tab PO .Q4-6H 12/25/24 12/25/24 Unknown History 325 mg tablet insulin glargine U-300 conc 300 25 unit SUBCUT BID 12/25/24 12/25/24 Unknown History unit/mL (3 mL) subcutaneous pen (Toujeo Max U-300 SoloStar) insulin lispro 100 unit/mL 22 unit SUBCUT .WITH EACH MEAL 12/25/24 12/25/24 Unknown History subcutaneous pen ipratropium bromide 42 mcg (0.06 2 spray intranasal TID 02/05/25 02/05/25 Unknown History %) nasal spray levothyroxine 112 mcg tablet 112 mcg PO DAILY 12/25/24 12/25/24 Unknown History metoprolol tartrate 25 mg tablet 25 mg PO BID 12/25/24 12/25/24 Unknown History pregabalin 25 mg capsule 25 mg PO DAILY 12/25/24 12/25/24 Unknown History ropinirole 0.25 mg tablet 0.25 mg PO TID 12/25/24 12/25/24 Unknown History ropinirole 0.5 mg tablet 0.5 mg PO TID 12/25/24 12/25/24 Unknown History semaglutide 2 mg/dose (8 mg/3 mL) 2 mg SUBCUT Q7D 12/25/24 12/25/24 Unknown History subcutaneous pen injector (Ozempic) vitamin B complex and vitamin C 1 cap PO DAILY 12/25/24 12/25/24 Unknown History no.20-folic acid 1 mg capsule (Antoni Caps) Allergies Allergy/AdvReac Type Severity Reaction Status Date / Time bumetanide Allergy Unknown Unknown Verified 09/17/24 14:03 sulfamethoxazole (From Allergy Unknown Unknown Verified 04/08/21 14:06 Bactrim) trimethoprim (From Bactrim) Allergy Unknown Unknown Verified 04/08/21 14:06 levofloxacin (From Levaquin) Allergy ADR-Itching Verified 04/08/21 14:06 NSAIDS (Non-Steroidal Allergy Unknown Verified 04/08/21 14:06 Anti-Inflamma Current Medications Generic Name Dose Route Start Last Admin Trade Name Freq PRN Reason Stop Dose Admin Methylprednisolone Sodium Succinate 40 mg 12/25/24 17:03 12/25/24 17:31 Methylprednisolone Sod Succ 40 Mg/Ml Inj IVP 40 mg Q6H NELIA Administration PFSH Acute PFSH: Medical History Lumbar stenosis with neurogenic claudication Seizure PRES (posterior reversible encephalopathy syndrome) RLS (restless legs syndrome) TARA (obstructive sleep apnea) Chronic antibiotic suppression Staphylococcus epidermidis bacteremia Diastolic heart failure H/O staphylococcal septicemia Hyperglycemia Cellulitis Thyroid disease Chronic back pain Renal failure HTN (hypertension) Obesity Surgical History 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 H/O: hysterectomy Arteriovenous fistula History of tonsillectomy History of cholecystectomy History of back surgery History of appendectomy History of adenoidectomy Family History Other Cancer Social History Smoking and tobacco/nicotine status: never used tobacco/nicotine Alcohol intake: never Substance/Drug Use: never Lives independently: Yes Household members: spouse Housing: House Marital status: Vitals/I&O/Wt Last Vital Signs Temp 97.0 F L 12/25/24 14:48 Pulse 98 12/25/24 17:17 Resp 19 H 12/25/24 17:17 BP 141/52 12/25/24 17:17 Pulse Ox 97 12/25/24 17:17 O2 Del Method Nasal Cannula 12/25/24 17:17 O2 Flow Rate 2 12/25/24 17:17 Weight last 48 hrs Weight 113.398 kg Physical Exam Narrative: Patient is awake alert, no distress, PERRLA S1-S2 regular rate and rhythm per report Lungs clear bilaterally per report Abdomen soft nontender per report No pedal edema Urinary Catheter Management: Tejada: Cath Placed During This Visit: yes Urinary Catheter Date of Insertion: 12/25/24 Urinary Catheter Time of Insertion: 15:45 Data 12/25/24 15:09 12/25/24 15:09 A&P Assessment and plan (1) End stage renal disease on dialysis: Plan 1. End-stage renal disease: On home hemodialysis, patient has missed dialysis for the past 1 week and now presented with hyperkalemia, volume overload and metabolic encephalopathy. -Emergent HD tonight on 1K bath, and HD tomorrow -Ultrafiltration as tolerated 2. Hyperkalemia: K was 7.1 on present status post medical management and HD tonight 3. Metabolic acidosis, should improve with HD 4. Anemia: Hemoglobin is 8, will order HIRO 5. Metabolic encephalopathy in the setting of severe uremia, should improve with HD Patient evaluated using audiovisual cart. Time spent 40 minutes. PDMP PDMP Reviewed: Not Reviewed Consult Attestations Medical Necessity Statement: per lucie Coding Level of Care Code Acute Code for Chg Fwd Diagnoses End stage renal disease on dialysis N18.6; Z99.2
[2024-12-25 17:56] LABS: Procalcitonin 15.65 ng/mL (0-0.5)
--- NOTE | 2024-12-25 18:08 | PC.NURSE ---
per Lead Producer, PICC team is not plastic tubing insulation supervisor after hours, or on weekends; therefore unable to start PICC on this patient at this time. Dr. Ramires notified by Lead Producer.
[2024-12-25 18:14] LABS: Glucose Point of Care 351 mg/dL (70-110)
[2024-12-25] MEDS: sodium bicarbonate 8.4% 1 mEq/mL 50mL Syr 100 MEQ IVP ×3 (18:15→23:16)
[2024-12-25] MEDS: insulin glargine 100 units/1 mL 35 UNIT SUBCUT (18:25)
[2024-12-25 18:39] LABS: Lactic Acid level (Lactate) 2.7 mmol/L (0.5-2.2)
--- NOTE | 2024-12-25 18:39 | PC.NURSE ---
this nurse has attempted to place ultrasound IV on pt multiple times, IVs infiltrate during medication pushes. Dr. Iverson assessed pt for ultrasound IV and was unable to find appropriate vein for placement. ED provider for this patient, Dr. Blake, notified. this nurse used Dialysis Port to administer medications for hyperkalemia, per double physician order, but unable to administer IV medications ordered for admit. (see nurse note) this nurse contacted ICU for verification of not pushing medications through Dialysis Port, verified this is against best practice unless deemed life-sustaining. ED provider, Design Quality Engineer, ED charge, Admitting hospitalist notified of current situation. report given to overnight cashier nurse on situation. ICU aware as well. No further orders from physicians at this time.
[2024-12-25 18:41] LABS: Troponin 5 2HR 175.2 ng/L (0-10); Troponin 5 2HR Delta -15.8 ABS# (0-10)
[2024-12-25 18:56] LABS: C Reactive Protein 225.3 mg/L (0.0-4.9); Iron 77 ug/dL (37-145); Vitamin B12 1199 pg/mL (232-1245)
[2024-12-25 19:43] LABS: Percent Saturation 55.3 % (20-50); Total Iron Binding Capacity 139 mcg/dl; Unsaturated Iron Binding 62 ug/dL (112-347)
[2024-12-25 19:45] LABS: Bilirubin Urine Negative (Negative); Blood Urine Trace (Negative); Glucose Urine UA Negative (Normal); Ketones Urine Trace (Negative); Leukocyte Esterase Urine 3+ (Negative); Nitrate Urine Negative (Negative); Protein Urine 3+ (Negative); Specific Gravity, Urine 1.018 (1.005-1.030); Urine Appearance Turbid (CLEAR); Urine Color Yellow (Yellow); pH Urine 6.5 (5-7)
--- NOTE | 2024-12-25 19:56 | W.ED.WEAKNES ---
HPI - Weakness General: Chief complaint: Weakness Stated complaint: N/V Fever Time Seen by Provider: 12/25/24 14:48 History of Present Illness: . PFSH ED PFSH: Medical History Lumbar stenosis with neurogenic claudication Seizure PRES (posterior reversible encephalopathy syndrome) RLS (restless legs syndrome) TARA (obstructive sleep apnea) Chronic antibiotic suppression Staphylococcus epidermidis bacteremia Diastolic heart failure H/O staphylococcal septicemia Hyperglycemia Cellulitis Thyroid disease Chronic back pain Renal failure HTN (hypertension) Obesity Surgical History 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 H/O: hysterectomy Arteriovenous fistula History of tonsillectomy History of cholecystectomy History of back surgery History of appendectomy History of adenoidectomy Family History Other Cancer Social History Smoking and tobacco/nicotine status: never used tobacco/nicotine Alcohol intake: never Substance/Drug Use: never Lives independently: Yes Household members: spouse Housing: House Marital status: Procedures Central Line Placement Right Femoral: Time Out Performed: Yes Patient Placed on Monitor/Pulse Ox: Yes Prep: mask, gown and gloves Central Line Prep: Povidone-Iodine 1% Local Anesthetic: lidocaine 1% Amount of anesthesia used (mL): 3 Ultrasound Used for Placement: Yes Additional Comments: not able to place line Course Vital Signs: Vital signs: Vital Signs Temperature 97.0 F L 12/25/24 14:48 Pulse Rate 126 H 12/25/24 19:31 Respiratory Rate 19 H 12/25/24 17:17 Blood Pressure 139/51 12/25/24 19:31 Pulse Oximetry 100 12/25/24 18:50 Oxygen Delivery Me thod Nasal Cannula 12/25/24 18:50 Oxygen Flow Rate 2 12/25/24 18:50 MDM - Weakness Medical Decision Making .. Lab Data 12/25/24 15:09 12/25/24 15:09 Radiology Impressions Chest X-Ray 12/25/24 14:51 Impression: Atherosclerosis and cardiomegaly. Laboratory Results WBC 9.27 10^3/uL (3.29-11.43) 12/25/24 15:09 RBC 2.71 10^6/uL (3.85-5.65) L 12/25/24 15:09 Hgb 8.00 g/dL (11.27-16.99) L 12/25/24 15:09 Hct 24.7 % (36-47) L 12/25/24 15:09 MCV 91.1 fl (85-98) 12/25/24 15:09 MCH 29.5 pg (27-33) 12/25/24 15:09 MCHC 32.4 g/dL (30-55) 12/25/24 15:09 RDW 14.1 % (12.1-15.1) 12/25/24 15:09 Plt Count 81 10^3/cmm (157-399) L 12/25/24 15:09 MPV 11.5 fL (7.4-10.4) H 12/25/24 15:09 Neut % (Auto) 85.3 % 12/25/24 15:09 Lymph % (Auto) 9.1 % 12/25/24 15:09 [place] % (Auto) 5.0 % 12/25/24 15:09 Eos % (Auto) 0.0 % 12/25/24 15:09 Baso % (Auto) 0.2 % 12/25/24 15:09 Neut # (Auto) 7.91 10^3/uL (1.8-7.7) H 12/25/24 15:09 Lymph # (Auto) 0.8 10^3/uL (0.8-4.8) 12/25/24 15:09 [place] # (Auto) 0.5 10^3/uL (0.2-0.9) 12/25/24 15:09 Eos # (Auto) 0.0 10^3/uL (0.0-0.8) 12/25/24 15:09 Baso # (Auto) 0.0 10^3/uL (0.0-0.1) 12/25/24 15:09 Nucleated RBC % (auto) 0 % 12/25/24 15:09 Nucleated RBCs # 0.0 /100WBC 12/25/24 15:09 D-Dimer >= 20.00 ug/mLFEU (0-0.59) H 12/25/24 15:09 Specimen Type Arterial 12/25/24 15:19 Sample Site Brachial, left 12/25/24 15:19 ABG pH 7.30 (7.35-7.45) L 12/25/24 15:19 ABG pCO2 30.1 mmHg (35-45) L 12/25/24 15:19 ABG pO2 69.2 mmHg (80.0-100.0) L 12/25/24 15:19 ABG PO2/FiO2 Ratio 247 12/25/24 15:19 ABG HCO3 14.9 mmol/L (22-26) L 12/25/24 15:19 ABG O2 Saturation 93.1 12/25/24 15:19 ABG Base Excess -10.4 mmol/L (-2.0-2.0) L 12/25/24 15:19 Seun Test N/a 12/25/24 15:19 A-a O2 Gradient 11.8 mmHg (5-10) H 12/25/24 15:19 Hematocrit 26.1 % (37-47) L 12/25/24 15:19 Hgb O2 Saturation 90.2 % (95-100) L 12/25/24 15:19 Carboxyhemoglobin 1.7 %THgb (0.4-20.1) 12/25/24 15:19 Methemoglobin 1.3 % (0.4-1.5) 12/25/24 15:19 Total Hemoglobin 8.5 g/dL (12-16) L 12/25/24 15:19 Sodium 128.0 mmol/L (131-143) L 12/25/24 15:19 Potassium 7.0 mmol/L (3.5-5.0) H 12/25/24 15:19 Glucose 353.0 mg/dL (70-115) H 12/25/24 15:19 Ionized Calcium 1.0 mmol/L (1.1-1.4) L 12/25/24 15:19 O2 Delivery Device Nc 12/25/24 15:19 O2 Liters/Min 2.0 % 12/25/24 15:19 FiO2 28.0 % 12/25/24 15:19 Retail Delivery Driver ID Broma 12/25/24 15:19 Sodium 127 mmol/L (136-145) L 12/25/24 15:09 Potassium 7.1 mmol/L (3.5-5.1) H* 12/25/24 15:09 Chloride 86 mmol/L (98-107) L 12/25/24 15:09 Carbon Dioxide 14 mmol/L (22-29) L 12/25/24 15:09 Anion Gap 34.1 (5-19) H 12/25/24 15:09 BUN 124 mg/dL (8-23) H* D 12/25/24 15:09 Creatinine 13.7 mg/dL (0.5-0.9) H* 12/25/24 15:09 GFR Calculation 2.7 mL/min (90-130) L 12/25/24 15:09 Glucose 342 mg/dL (65-115) H 12/25/24 15:09 POC Glucose 375 mg/dL (70-110) H 12/25/24 16:56 Calculated Osmolality 317 mOsm/kg (285-295) H 12/25/24 15:09 Lactic Acid 2.4 mmol/L (0.5-2.2) H 12/25/24 15:09 Calcium 8.0 mg/dL (8.5-10.5) L 12/25/24 15:09 Phosphorus 6.7 mg/dL (2.5-4.5) H 12/25/24 15:09 Magnesium 2.6 mg/dL (1.7-2.3) H 12/25/24 15:09 Iron 77 ug/dL (37-145) 12/25/24 15:09 TIBC 139 mcg/dl 12/25/24 15:09 % Saturation 55.3 % (20-50) H 12/25/24 15:09 Unsat Iron Binding 62 ug/dL (112-347) L 12/25/24 15:09 Total Bilirubin 1.1 mg/dL (0.15-1.2) 12/25/24 15:09 AST 105 U/L (0-32) H 12/25/24 15:09 ALT 169 U/L (0-33) H 12/25/24 15:09 Alkaline Phosphatase 289 U/L (35-105) H 12/25/24 15:09 Troponin T Baseline 191 ng/L (0-10) H* 12/25/24 15:09 C-Reactive Protein 225.3 mg/L (0.0-4.9) H 12/25/24 15:09 Total Protein 6.9 g/dL (6.6-8.7) 12/25/24 15:09 Albumin 3.2 g/dL (3.5-5.2) L 12/25/24 15:09 Globulin 3.7 g/dL (1.3-4.6) 12/25/24 15:09 Vitamin B12 1199 pg/mL (232-1245) 12/25/24 15:09 Procalcitonin 15.65 ng/mL (0-0.5) H 12/25/24 15:09 TSH 4.60 uIU/mL (0.27-4.20) H 12/25/24 15:09 Serum Ketones Negative (Negative) 12/25/24 15:09 Coronavirus (PCR) Negative (Negative) 12/25/24 15:12 Influenza A (PCR) Negative (Negative) 12/25/24 15:12 Influenza Type B (PCR) Negative (Negative) 12/25/24 15:12 RSV (PCR) Positive (Negative) A 12/25/24 15:12 No radiology studies performed this visit Discharge Plan Discharge Patient Disposition: Admitted As Inpatient Admit Provider: Jovanni Ramires Clinical Impression: End stage renal disease on dialysis, Acute hyperkalemia, Uremia, Respiratory syncytial virus Condition: Stable Coding Level of Care Code ED Air Bag Builder for Chg Fwd Related Data Home Medications ?Medication ?Instructions ?Recorded ?Confirmed albuterol sulfate 2.5 mg/3 mL 2.5 mg inhalation Q6H 12/25/24 12/25/24 (0.083 %) solution for nebulization apixaban 5 mg tablet (Eliquis) 5 mg PO BID 12/25/24 12/25/24 calcitriol 0.25 mcg capsule 0.25 mcg PO DAILY 12/25/24 12/25/24 calcitriol 0.5 mcg capsule 0.5 mcg PO DAILY 12/25/24 12/25/24 hydralazine 50 mg tablet 50 mg PO TID 12/25/24 12/25/24 hydrocodone 7.5 mg-acetaminophen 1 - 2 tab PO .Q4-6H 12/25/24 12/25/24 325 mg tablet insulin glargine U-300 conc 300 25 unit SUBCUT BID 12/25/24 12/25/24 unit/mL (3 mL) subcutaneous pen (Toujeo Max U-300 SoloStar) insulin lispro 100 unit/mL 22 unit SUBCUT .WITH EACH MEAL 12/25/24 12/25/24 subcutaneous pen ipratropium bromide 42 mcg (0.06 2 spray intranasal TID 12/25/24 12/25/24 %) nasal spray levothyroxine 112 mcg tablet 112 mcg PO DAILY 12/25/24 12/25/24 metoprolol tartrate 25 mg tablet 25 mg PO BID 12/25/24 12/25/24 pregabalin 25 mg capsule 25 mg PO DAILY 12/25/24 12/25/24 ropinirole 0.25 mg tablet 0.25 mg PO TID 12/25/24 12/25/24 ropinirole 0.5 mg tablet 0.5 mg PO TID 12/25/24 12/25/24 semaglutide 2 mg/dose (8 mg/3 mL) 2 mg SUBCUT Q7D 12/25/24 12/25/24 subcutaneous pen injector (Ozempic) vitamin B complex and vitamin C 1 cap PO DAILY 12/25/24 12/25/24 no.20-folic acid 1 mg capsule ([place] Caps) Allergies Allergy/AdvReac Type Severity Reaction Status Date / Time bumetanide Allergy Unknown Unknown Verified 09/17/24 14:03 sulfamethoxazole (From Allergy Unknown Unknown Verified 04/08/21 14:06 Bactrim) trimethoprim (From Bactrim) Allergy Unknown Unknown Verified 04/08/21 14:06 levofloxacin (From Levaquin) Allergy ADR-Itching Verified 04/08/21 14:06 NSAIDS (Non-Steroidal Allergy Unknown Verified 04/08/21 14:06 Anti-Inflamma
[2024-12-25 20:01] LABS: Potassium, Radom Urine 52 mmol/L; Urine Random Chloride 22 mmol/L; Urine Random Sodium 40 mmol/L
[2024-12-25 20:43] LABS: Estmated Average Glucose 143; Hemoglobin A1C 6.6 % (4.0-6.0)
[2024-12-25] MEDS: iohexol 350 mg/mL 500 mL Btl (per mL) IV (20:59)
[2024-12-25 21:11] LABS: Add Urine Microscopic? YES; Bacteria Urine 4+ /hpf; RBC Urine 0-4 /hpf (0-2); Squamous Epithelial Cell Urine 0-4 /hpf (0-5); UA Manual Slide Review YES
[2024-12-25 21:12] LABS: Add Urine Culture? Yes; WBC Urine 80-100 /hpf (0-5)
[2024-12-25] MEDS: pantoprazole 40 mg SDV IVP (21:23)
[2024-12-25] MEDS: HYDROcodone-acetaminophen 7.5-325 mg Tablet 1 TAB PO (21:23)
[2024-12-25] MEDS: ropinirole 0.25 mg Tablet PO (21:23)
[2024-12-25] MEDS: morphine 4 mg/mL SDV 1 mL 2 MG IVP (21:23)
[2024-12-25] MEDS: apixaban 5 mg Tablet PO (21:24)
--- NOTE | 2024-12-25 22:12 | PM.PROC ---
Procedure Note: Date of procedure: 12/25/24 Procedure: L Internal Jugular Central Line Complications: Called by Dr. Juárez after failed attempt at femoral central line placement. patient currently has tunneled R IJ dialysis catheter. Patient's L neck was cleansed with chloraprep and full body drape aplied. L IJ and carotid visualized on US. However, despite multiple passes using an 18g Catheter over needle, flash was unable to be obtained. Several attempts made along the length of the neck and needle was also exchanged for a fresh one in another kit in case of clot. Patient started to display significant discomfort with head-down positioning as well. Procedure was then aborted. Coding Level of Care Code Acute Code for Chg Fwd Time Spent (min) 60
--- NOTE | 2024-12-25 22:19 | ECG_ITS ---
[facility]: 2024-12-25 Pat Name: Berenice Pierce Department: Room: ICU10 Gender: Female Multimedia Assistant: : 1960 Requested By: Debra Maravilla Order Number: [id number] Pasquale MD: Michael Dewey M.D. Measurements Intervals [place] Rate: 159 P: 0 VA: 0 QRS: 9 QRSD: 97 T: 0 QT: 272 QTc: 442 Interpretive Statements ATRIAL FIBRILLATION WITH RAPID VENTRICULAR RESPONSE NONSPECIFIC ST & T-WAVE ABNORMALITY Compared to ECG 12/25/2024 16:21:00 T-wave abnormality now present Sinus tachycardia no longer present Myocardial infarct finding no longer present Electronically Signed On 12-26-2024 22:17:19 WEB SITE PROJECT MANAGER by Michael Dewey M.D. [email or web address]
[2024-12-25 22:37] LABS: Troponin 5 6HR Delta -31.4 ng/L (0-12)
[2024-12-25 22:38] LABS: Troponin 5 6HR 159.6 ng/L (0-10)
[2024-12-25 22:44] LABS: Glucose Point of Care 229 mg/dL (70-110)
[2024-12-25] MEDS: amiodarone 150 MG/100 ML PREMIX 400 MG IV (22:53)
[2024-12-25 23:14] LABS: Alanine Aminotransferase 159 U/L (0-33); Albumin Level 3.3 g/dL (3.5-5.2); Alkaline Phosphatase 301 U/L (35-105); Anion Gap 21.7 (5-19); Aspartate Amino Transferase 84 U/L (0-32); Blood Urea Nitrogen 68 mg/dL (8-23); Calcium 8.6 mg/dL (8.5-10.5); Carbon Dioxide 26 mmol/L (22-29); Chloride 94 mmol/L (98-107); Creatinine Clr Calc Pharmacy 10.0439; Globulin 4.1 g/dL (1.3-4.6); Glomerular Filtration Rate 6.1 mL/min (90-130); Glucose 235 mg/dL (65-115); Magnesium 2.2 mg/dL (1.7-2.3); Osmolality Calculated 313 mOsm/kg (285-295); Potassium 3.7 mmol/L (3.5-5.1); Sodium 138 mmol/L (136-145); Total Bilirubin 1.1 mg/dL (0.15-1.2); Total Protein 7.4 g/dL (6.6-8.7)
[2024-12-25] MEDS: insulin lispro 100 unit/1 mL SUBCUT (23:21)
[2024-12-26] VITALS (96 sets, daily range): BP systolic 72–161; BP diastolic 26–95; PULSE 57–131; RESP 11–26; O2SAT 86–100
[2024-12-26 00:38] LABS: Hepatitis B Surface Antigen Non-Reactive (Nonreactive)
--- NOTE | 2024-12-26 00:48 | PC.HD ---
Recurent hypotension precluded reaching fluid removal goal. Dr Oliva ntfd of stat lab results, K+ 3.7, Mg 2.2, and hypotension and tachycardia, instructed to terminate treatment early.
[2024-12-26] MEDS: ipratropium-albuterol 3 mL Neb INHALATION ×4 (01:59→20:33)
[2024-12-26 04:17] LABS: Hematocrit 23.1 % (36-47); Lymphocytes # 0.4 10^3/uL (0.8-4.8); Lymphocytes % 8.7 %; Mean Corpuscular HGB Conc 32.9 g/dL (30-55); Mean Corpuscular Hemoglobin 29.3 pg (27-33); Mean Corpuscular Volume 89.2 fl (85-98); Mean Platelet Volume 11.6 fL (7.4-10.4); Monocytes # 0.2 10^3/uL (0.2-0.9); Neutrophils # 4.36 10^3/uL (1.8-7.7); Neutrophils % 88.1 %; Nucleated Red Blood Cells % 0 %; Platelet Count 80 10^3/cmm (157-399); Red Blood Count 2.59 10^6/uL (3.85-5.65); Red Cell Distribution Width 13.9 % (12.1-15.1); White Blood Count 4.95 10^3/uL (3.29-11.43)
[2024-12-26 04:40] LABS: Alanine Aminotransferase 131 U/L (0-33); Alkaline Phosphatase 265 U/L (35-105); Anion Gap 26.8 (5-19); Aspartate Amino Transferase 62 U/L (0-32); Calcium 8.1 mg/dL (8.5-10.5); Carbon Dioxide 24 mmol/L (22-29); Chloride 92 mmol/L (98-107); Creatinine Clr Calc Pharmacy 7.2538; Globulin 3.4 g/dL (1.3-4.6); Glomerular Filtration Rate 4.2 mL/min (90-130); Glucose 304 mg/dL (65-115); Magnesium 2.4 mg/dL (1.7-2.3); Osmolality Calculated 324 mOsm/kg (285-295); Phosphorus 6.3 mg/dL (2.5-4.5); Potassium 4.8 mmol/L (3.5-5.1); Procalcitonin 23.39 ng/mL (0-0.5); Sodium 138 mmol/L (136-145); Total Bilirubin 0.8 mg/dL (0.15-1.2); Total Protein 6.4 g/dL (6.6-8.7)
[2024-12-26 04:42] LABS: Chol HDL Ratio 6.82 mg/dL (0.0-4.40); Cholesterol 116 mg/dL (0-200); HDL Cholesterol 17 mg/dL (60-100); LDL Cholesterol Calculated 60 mg/dL (50-129); LDL HDL Ratio 3.53 RATIO (0.00-3.22); Triglycerides 193 mg/dL (0-150)
[2024-12-26 04:46] LABS: Blood Urea Nitrogen 88 mg/dL (8-23)
[2024-12-26 05:01] LABS: Folate Level 14.6 ng/mL (4.8-37.3)
[2024-12-26] MEDS: methylPREDNISolone sod succ 40 mg/mL INJ IVP ×2 (05:31→16:51)
[2024-12-26] MEDS: HYDROcodone-acetaminophen 7.5-325 mg Tablet 1 TAB PO ×2 (05:31→11:21)
[2024-12-26 06:10] LABS: Bacillus cereus group Not Detected (NOT DETECT); Bacillus subtillis group Not Detected (NOT DETECT); Corynebacterium Not Detected (NOT DETECT); Cutibacterium acnes (P.acnes) Not Detected (NOT DETECT); Enterococcus Not Detected (NOT DETECT); Enterococcus faecalis Not Detected (NOT DETECT); Enterococcus faecium Not Detected (NOT DETECT); Lactobacillus species Not Detected (NOT DETECT); Listeria Not Detected (NOT DETECT); Listeria monocytogenes Not Detected (NOT DETECT); Micrococcus Not Detected (NOT DETECT); Pan Candida Not Detected (NOT DETECT); Pan Gram-Negative Not Detected (NOT DETECT); Staphylococcus epidermidis Not Detected (NOT DETECT); Staphylococcus lugdunensis Not Detected (NOT DETECT); Staphylococcus species Detected (NOT DETECT); Streptococcus agalactiae Not Detected (NOT DETECT); Streptococcus anginosus group Not Detected (NOT DETECT); Streptococcus pneumoniae Not Detected (NOT DETECT); Streptococcus pyogenes Not Detected (NOT DETECT); Streptococcus species Not Detected (NOT DETECT); mecA Not Detected (NOT DETECT); mecC Not Detected (NOT DETECT)
--- NOTE | 2024-12-26 07:34 | XR_ITS ---
WS: [id number] Portable AP supine chest, 12/26/2024 Clinical Data: Post PICC insertion Comparison: Portable chest, 12/25/2024 Findings: The left PICC line ends in the superior vena cava there is no pneumothorax. The remainder of the chest shows no change. XR/XR chest 1V portable [id number] Impression: Satisfactory insertion of left PICC line.
[2024-12-26 07:44] LABS: Glucose Point of Care 348 mg/dL (70-110)
--- NOTE | 2024-12-26 08:16 | PM.PN ---
Subjective Subjective: more awake. does not recall yesterdays events. has palpitations, less SOB. denies CP Medications: Reviewed: Yes Medication Review Details: Current Medications Acetaminophen (Acetaminophen 325 Mg Tablet) 650 mg PO Q6H PRN PRN Reason: Mild/Mod Pain Or Temp >/= 101 Hydrocodone Bitart/Acetaminophen (Hydrocodone-Acetaminophen 7.5-325 Mg Tablet) 1 tab PO Q6H [facility] Last Admin: 12/26/24 05:31 Dose: 1 tab Albuterol/Ipratropium (Ipratropium-Albuterol 3 Ml Neb) 3 ml INHALATION Q6H.RESP [facility] Last Admin: 12/26/24 01:59 Dose: 3 ml Apixaban (Apixaban 5 Mg Tablet) 5 mg PO BID [facility] Last Admin: 12/25/24 21:24 Dose: 5 mg Budesonide (Budesonide 0.5 Mg/2 Ml Neb) 0.5 mg INHALATION BID [facility] Last Admin: 12/25/24 21:31 Dose: Not Given Calcitriol (Calcitriol 0.25 Mcg Capsule) 0.5 mcg PO DAILY [facility] Docusate Sodium (Docusate Sodium 100 Mg Capsule) 100 mg PO BID [facility] Last Admin: 12/25/24 21:25 Dose: Not Given Glucagon (Glucagon 1 Mg/Ml Kit 1 Ml) 1 mg IM ONCE PRN; Protocol PRN Reason: Adult Acute Hypoglycemia Nursing Prot. Hydralazine HCl (Hydralazine 20 Mg/Ml Inj 1 Ml) 10 mg IVP Q4H PRN PRN Reason: SBP More than 160 mmhg Dextrose (D5w) 500 mls @ 0 mls/hr IV ONCE PRN; Protocol PRN Reason: Adult Acute Hypoglycemia Prot Dextrose (D10w) 125 mls @ 750 mls/hr IV PRN PRN; Protocol PRN Reason: Adult Acute Hypoglycemia Nursing Protocol Dextrose (D10w) 250 mls @ 1,000 mls/hr IV PRN PRN; Protocol PRN Reason: Adult Acute Hypoglycemia Nursing Protocol Sodium Chloride (Sodium Chloride 0.9%) 1,000 mls @ 0 mls/hr IV .Q0M PRN PRN Reason: hypotension or symptomatic Albumin Human (Albumin) 12.5 gm in 50 mls @ 60 mls/hr IV PRN PRN PRN Reason: Hypotension and/or symptomatic Amiodarone HCl/Dextrose (Nexterone) 360 mg in 200 mls @ 0 mls/hr IV .Q0M [facility]; Protocol Last Admin: 12/25/24 23:16 Dose: 1 mg/min, 33.33 mls/hr Insulin Glargine (Insulin Glargine 100 Units/1 Ml) 35 unit SUBCUT BID [facility] Last Admin: 12/25/24 18:25 Dose: 35 unit Insulin Human Lispro (Insulin Lispro 100 Unit/1 Ml) 0 unit SUBCUT WM&BEDTIME [facility]; Protocol Last Admin: 12/25/24 23:21 Dose: 8 unit Lactulose (Lactulose Oral Liq 20 Gm/30 Ml Udc) 10 gm PO DAILY PRN; Protocol PRN Reason: Constipation (see protocol) Levothyroxine Sodium (Levothyroxine 112 Mcg Tablet) 112 mcg PO DAILY [facility] Magnesium Hydroxide (Magnesium Hydroxide 30 Ml Udc) 30 ml PO DAILY PRN; Protocol PRN Reason: Constipation (see protocol) Methylprednisolone Sodium Succinate (Methylprednisolone Sod Succ 40 Mg/Ml Inj) 40 mg IVP Q6H [facility] Last Admin: 12/26/24 05:31 Dose: 40 mg Metoprolol Tartrate (Metoprolol Tartrate 25 Mg Tablet) 25 mg PO BID [facility] Last Admin: 12/25/24 23:17 Dose: Not Given Morphine Sulfate (Morphine 4 Mg/Ml Sdv 1 Ml) 2 mg IVP Q4H PRN PRN Reason: SEVERE PAIN Last Admin: 12/25/24 21:23 Dose: 2 mg Ondansetron HCl (Ondansetron 2 Mg/Ml Sdv 2 Ml) 4 mg IVP Q6H PRN PRN Reason: vomiting, or N/V if npo Pantoprazole Sodium (Pantoprazole 40 Mg Sdv) 40 mg IVP Q24H [facility] Last Admin: 12/25/24 21:23 Dose: 40 mg Pregabalin (Pregabalin 25 Mg Capsule) 25 mg PO DAILY [facility] Ropinirole HCl (Ropinirole 0.25 Mg Tablet) 0.25 mg PO TID [facility] Last Admin: 12/25/24 21:23 Dose: 0.25 mg Vitals/I&O/Wt Last Vital Signs Temp 97.3 F L 12/25/24 23:55 Pulse 128 H 12/26/24 05:35 Resp 18 12/26/24 05:35 BP 111/55 12/26/24 05:35 Pulse Ox 97 12/26/24 05:35 O2 Del Method Nasal Cannula 12/26/24 02:00 O2 Flow Rate 2 12/26/24 02:00 12/25/24 12/26/24 12/26/24 22:59 06:59 14:59 Intake Total 500 / 500 Output Total 945 / 945 Balance -445 / -445 Weight last 48 hrs Weight 111.13 kg Weight 111.5 kg Weight 111 kg Weight 110.5 kg Weight 113.398 kg Physical Exam Narrative: in bed, sitting up HR tachy and irreg irreg a fib BP low normal heent- nc/at, eomi neck supple lungs dull bases. no crackles or rhonchi heart irreg irreg, + s1, s2 abd soft, nt, nd, + bs ext 1+ edema neuro- a,a, o x 2 + RT IJ PC seen and examined w/ nurse using A/VV equipment Urinary Catheter Management: [place]: Cath Placed During This Visit: yes Reason for Continuing Indwelling Catheter: Accurate Measurement of Urinary Output in Critically Ill Patients Urinary Catheter Date of Insertion: 12/25/24 Urinary Catheter Time of Insertion: 15:45 Data 12/26/24 03:45 12/26/24 03:45 Micro: Microbiology 12/25/24 17:40 Blood Culture - Preliminary Blood 12/25/24 17:48 Blood Culture - Preliminary Blood SPECIMEN COLLECTED A&P Assessment and plan (1) End stage renal disease on dialysis: 64 year old female with past medical history of end-stage renal disease on home hemodialysis, type 2 diabetes mellitus, staff epidermidis bacteremia, hypertension, diastolic heart failure chronically on anticoagulation with Eliquis, hypothyroidism was brought to the ER on dec 25, 2024 by her son from home because of worsening hypoxia, generalized weakness, difficulty breathing and poor mentation. Patient had emergent HD yesterday for hyperkalemia 1. a fib w/ RVR as per medicine/ cardiology 2. eSRD- pt missed her HHD, as her is no longer able to perform her home hemodialysis- her son is learning -s/p emergent HD for hyperkalemia last night. repeat HD tomorrow 3. anemia- check iron studies and give epo 4. a fib- on amiodarone. regarding a/c- as she is ESRD on HD. if on eliquis just for a fib- please decrease dose to 2.5 mg po bid seen and examined w/ RN- using A/V equipment pt consents to telehealth and to dialysis Plan improving hyperkalemia and confusion PDMP PDMP Reviewed: Not Reviewed Attestations Medical Necessity Statement*: AMS, Volume overload, eSRD, a fib w/ RVR Time Spent in Patient Care: 16 - 35 minutes (>than 50% of time spent in counselling and/or direct pt care on unit). Coding Level of Care Code Acute Code for Chg Fwd Diagnoses End stage renal disease on dialysis N18.6; Z99.2
[2024-12-26] MEDS: calcitriol 0.25 mcg Capsule 0.5 MCG PO (08:53)
[2024-12-26] MEDS: pregabalin 25 mg Capsule PO (08:53)
[2024-12-26] MEDS: apixaban 5 mg Tablet PO ×2 (08:53→16:50)
[2024-12-26] MEDS: levothyroxine 112 mcg Tablet PO (08:54)
[2024-12-26] MEDS: docusate sodium 100 mg Capsule PO (08:54)
[2024-12-26] MEDS: EPOETIN ALFA-EPBX 10,000 UNIT/ML SDV (ESRD) 10000 UNIT SUBCUT (08:54)
[2024-12-26] MEDS: insulin lispro 100 unit/1 mL SUBCUT ×4 (08:54→21:27)
[2024-12-26] MEDS: ropinirole 0.25 mg Tablet PO ×3 (08:54→21:27)
[2024-12-26] MEDS: budesonide 0.5 mg/2 mL Neb INHALATION ×2 (08:57→20:33)
--- NOTE | 2024-12-26 08:59 | PICC.NOTE ---
Double lumen PICC placed to left basilic vein. Referred to vascular access nurse for PICC placement due to poor access and failed attempt at femoral and IJ central lines. Risks and benefits discussed and informed consent obtained from pt. Left arm assessed with left basilic vein measuring 4.0 mm, straight, and apparent best choice for placement. Using sterile technique and MST, left basilic vein accessed x 1 stick. Mid-arm circumference measured 10 cm from left AC 41 cm. Trimmed cath 48 cm with 0 cm external length noted. CXR shows tip in SVC, in good position for use per radiologist. Line secured with stat-lock. Insertion site covered with Biopatch, Secureport IV and TSM. Report given to bedside nurse, KWAKU Jerez.
[2024-12-26 09:03] LABS: Iron 90 ug/dL (37-145); Percent Saturation 75.6 % (20-50); Total Iron Binding Capacity 119 mcg/dl; Unsaturated Iron Binding 29 ug/dL (112-347)
[2024-12-26] MEDS: insulin glargine 100 units/1 mL 40 UNIT SUBCUT ×2 (09:09→17:10)
[2024-12-26] MEDS: piperacillin-tazobactam 3.375 GM in sodium chloride 0.9% (plus) 50 ML IV ×2 (09:10→21:35)
[2024-12-26] MEDS: metoprolol tartrate 25 mg Tablet 50 MG PO (09:10)
[2024-12-26] MEDS: vancomycin 2,000 MG/400 ML PIGGYBACK 200 MG IV (09:11)
[2024-12-26 09:13] LABS: Hepatitis B Surface AB 79.7 (11.5-1000); Hepatitis B Surface Antigen Non-Reactive (Nonreactive); Hepatitis C Virus Antibody Non-Reactive (Nonreactive)
[2024-12-26 09:14] LABS: Parathyroid Hormone 279.2 pg/mL (15-65)
--- NOTE | 2024-12-26 09:14 | PM.PN ---
Subjective Subjective: Overnight she underwent emergent hemodialysis for hyperkalemia. She states she is feeling a lot better. Feeling tired. Breathing is improving. Saturating well over 95% on 2 L. Blood pressure is better. Did have a run of A-fib with RVR for which she is on amiodarone drip currently. Heart rate better controlled. Denies any nausea, vomiting, headache. Had difficulty in getting an IV line overnight. Multiple failed attempts on central line placement. Vitals/I&O/Wt Last Vital Signs Temp 97.3 F L 12/25/24 23:55 Pulse 125 H 12/26/24 08:45 Resp 18 12/26/24 08:45 BP 124/58 12/26/24 08:30 Pulse Ox 97 12/26/24 08:45 O2 Del Method Nasal Cannula 12/26/24 08:45 O2 Flow Rate 2 12/26/24 08:45 12/25/24 12/26/24 12/26/24 22:59 06:59 14:59 Intake Total 700 / 700 Output Total 945 / 945 Balance -245 / -245 Weight last 48 hrs Weight 111.13 kg Weight 111.5 kg Weight 111 kg Weight 110.5 kg Weight 113.398 kg Physical Exam Narrative: General: No acute distress, AO x3, acute on chronic sick appearing, nasal cannula, hemodialysis catheter present in right hemithorax HEENT: PERRLA, pupils bilaterally equal and reactive Chest: Normal vesicular breath sounds, decreased air entry bilaterally lower zone, fine crackles in lower zone, equal good air entry bilaterally CVS: S1-S2 regular, no murmurs, no tachycardia, no gallops, no rubs Abdomen: Soft, nontender, no organomegaly, bowel sounds present Neuro: No focal deficits, no facial deformity, AO x3, power 5/5 in all limbs Skin: OTHER: Urinary Catheter Management: [place]: Cath Placed During This Visit: yes Reason for Continuing Indwelling Catheter: Accurate Measurement of Urinary Output in Critically Ill Patients Urinary Catheter Date of Insertion: 12/25/24 Urinary Catheter Time of Insertion: 15:45 Data 12/26/24 03:45 12/26/24 03:45 Micro: Microbiology 12/25/24 17:40 Blood Culture - Preliminary Blood Staphylococcus aureus 12/25/24 17:48 Blood Culture - Preliminary Blood SPECIMEN COLLECTED A&P Assessment and plan (1) Staphylococcus aureus bacteremia: (2) Atrial fibrillation with RVR: (3) Acute hyperkalemia: (4) Metabolic acidosis: (5) Missed dialysis: (6) End stage renal disease on dialysis: (7) Uremia: (8) Acute and chronic respiratory failure with hypoxia: (9) Respiratory syncytial virus: (10) Diastolic heart failure: (11) HTN (hypertension): (12) TARA (obstructive sleep apnea): (13) Type 2 diabetes mellitus: (14) H/O staphylococcal septicemia: (15) Elevated troponin: (16) Poor intravenous access: Multiple attempts to central line overnight both femoral and left IJ. PICC line placed today morning before blood culture was reported. (17) Chronic osteomyelitis: Plan 64-year-old female with past medical history of end-stage renal disease on home hemodialysis presents to the ER today because of worsening hypoxia, weakness due to missed home dialysis as caregiver is admitted to another hospital for respiratory failure found to have renal failure with metabolic acidosis, hyperkalemia and hypoxic respiratory failure due to RSV. Staphylococcus bacteremia: 3 blood cultures from admission positive for Staph aureus. Sensitivities awaited. Patient has history of hardware placement, hemodialysis catheter in place, fistula. She does have an open wound at the base of her foot with concerns for osteomyelitis. Unlikely source of infection and septicemia for now. Start on IV vancomycin and Zosyn for now. Check MRSA swab. Repeat blood culture in AM. Will consult infectious disease for possible removal of dialysis catheter. If needed we will have to place a temporary dialysis catheter to remove more permacath. Consult surgery accordingly. Consult podiatry for further recommendations regarding wound at the base of the foot with concerns for osteomyelitis. MR foot. Patient would most likely need up to 6 weeks of IV antibiotics. Hyperkalemia/metabolic acidosis/uremia/renal failure/hyponatremia: Most likely in setting of missed home dialysis for over 1 week. Post emergent dialysis. Resolving. Hyperkalemia, metabolic acidosis, uremia resolving. Hyponatremia resolved. Continue dialysis as per nephrology. [place] catheterization. Strict and proper charting, daily weights. Fluid restriction to less than 1500 cc. Metabolic acidosis resolved. Ketones negative. Most likely in setting of acute renal failure. Hypervolemic hyponatremia most likely in setting of missed dialysis. Resolved. A-fib with RVR: Currently rate controlled. Continue with amiodarone drip. Transition to 200 mg twice daily. Did not get oral dose of metoprolol last night. Increase metoprolol to 50 mg twice daily. C/w Eliquis 5 mg BID. Acute on chronic hypoxic respiratory failure: Chronically on 2 L. Resolving. Most likely combination of congestive heart failure and RSV bronchitis. Appreciate blood culture. Blood culture, MRSA swab not collected. Appreciate lactic, D-dimer. Appreciate CT chest abdomen pelvis. Continue with IV vancomycin and Zosyn for now. Continue with Pulmicort twice daily, DuoNeb every 6 hour Wean Solu-Medrol 40 mg every 12 hour. Type 2 diabetes mellitus: Ketones negative. Blood glucose improving. Takes Humalog 25 units twice daily along with lispro 22 units Premeal at home. Continue with Lantus 40 units twice daily, insulin sliding moderate dose protocol. A1c of 6.6. Elevated troponin: Most likely with concerns for demand ischemia. Negative cycle troponin. Echocardiogram results pending. Hypertension: Goal blood pressure less than 140/90 mmHg. Takes hydralazine 50 mg 3 times daily, metoprolol 25 mg twice daily at home. For now we will continue with metoprolol. Will restart hydralazine as per blood pressures. IV hydralazine 10 mg every 4 hours as needed for systolic blood pressure more than 160 mmHg. Continue other chronic home medications including levothyroxine, pregabalin, Requip. Analgesia: Home dose of [place], Tylenol as needed Glycemic control: Lantus 40 units twice daily, insulin sliding scale at moderate dose protocol Nutrition: Renal diabetic dialysis diet CODE STATUS: Full code. Patient's son will be the DPOA. is also DPOA but he is intubated at another hospital for now. PUD prophylaxis: Protonix DVT prophylaxis: Eliquis will be sufficient for DVT prophylaxis. Discharge planning: Home with caregiver versus SNF depending on clinical picture going forward. Patient's is the primary caregiver and does home dialysis as admitted at another hospital. Can plan for discharge to home with home health and outpatient dialysis set up while comes back home. [facility]. This documentation was created by [facility] [employer] telegraphic service dispatcher software. Every effort was made to ensure accuracy of telegraphic service dispatcher. Any obvious errors or omissions should be clarified with the author of the document. PDMP PDMP Reviewed: Last Reviewed 12/25/24 17:41 by Jovanni Ramires MD Attestations Medical Necessity Statement*: Requires further hospitalization for management of Staphylococcus bacteremia, acute renal failure in setting of missed dialysis, A-fib with RVR Critical Care Time: The high probability of a clinically significant, sudden or life threatening deterioration of the patient's [cardiac renal, pulmonary, ID] system(s) required my full and direct attention, intervention and personal management. The critical care time is as shown. This time is in addition to time spent performing any reported procedures but includes the following: [x] Data and vital sign review and interpretation [x] Patient assessment, examination and intervention [x] Documentation [x] Medication orders and management Critical Care Time (min): 90 Coding Level of Care Code Critical Care >/= 30 minutes Critical care time (in minutes): 90 The high probability of a clinically significant, sudden or life threatening deterioration, as referenced in this documentation, required my full and direct attention, intervention and personal management. The critical care time shown is in addition to time spent performing any reported separately billable procedures and includes the following: [x] Data and vital sign review and interpretation [x] Patient assessment, examination and intervention [x] Medication orders and management [x] Patient/Family updates as able [x] Care Coordination and Documentation. Other Coding Information This patient has a high probability of clinically significant, sudden or life threatening deterioration of the patient's (neurological/pulmonary/cardiac/renal/ID/endocrine) systems required my full, direct attention, the highest level of physician preparedness for urgent intervention and personal management. I managed/supervised life or organ supporting interventions that required frequent physician assessment. I devoted my full attention in the ICU to the direct care of this patient for the period of time indicated above. Time I spent with family or surrogate(s) is included only if the patient was incapable of providing necessary information or participating in decision making. This time includes the following services provided: Telemetry review Hemodynamic interpretation, assessment and management Review and interpretation of CXR Review and interpretation of lab values Review and interpretation of microbiologic data and culture results Review of medications and administration Review and interpretation of Nutrition requirements and management Discussion of management with other consultants and services Clinical update to family members Diagnoses Staphylococcus aureus bacteremia R78.81; B95.61 Atrial fibrillation with RVR I48.91 Acute hyperkalemia E87.5 Metabolic acidosis E87.20 Missed dialysis End stage renal disease on dialysis N18.6; Z99.2 Uremia N19 Acute and chronic respiratory failure with hypoxia J96.21 Respiratory syncytial virus B33.8 Diastolic heart failure I50.30 HTN (hypertension) I10 TARA (obstructive sleep apnea) G47.33 Type 2 diabetes mellitus E11.9 H/O staphylococcal septicemia Z86.19 Elevated troponin R79.89 Poor intravenous access Z78.9 Chronic osteomyelitis M86.60
--- NOTE | 2024-12-26 09:17 | MR_ITS ---
WS: [id number] EXAMINATION: MR foot RT wo con* [id number] ORDER DATE: 12/26/2024 1:19 PM COMPARISON: None. HISTORY: Osteo CONTRAST: None. TECHNIQUE: Sagittal T1, sagittal STIR, coronal PD, coronal T2, axial T1, axial T2, and axial PD imaging with fat saturation technique. FINDINGS: Prior postoperative changes amputations involving the mid fourth and fifth metatarsals. Demineralization. Diffuse soft tissue edema involving the lateral aspect of the foot extending into the plantar soft tissues. Plantar calcaneal spurring. Plantar soft tissue ulcer overlying the base of the fifth metatarsal. Replacement the normal bone marrow signal involving the lateral aspect of the base of the fifth metatarsal compatible with osteomyelitis. Diffuse soft tissue edema in the intertarsal soft tissues. Small amount of fluid along the lateral foot ulceration measuring 11 x 8 mm. MR/MR foot RT wo con* [id number] IMPRESSION: Osteomyelitis lateral aspect base of the fifth metatarsal
[2024-12-26 10:03] LABS: Erythrocyte Sedimentation Rate 43 mm/hr (0-15)
[2024-12-26 10:05] LABS: C Reactive Protein 210.8 mg/L (0.0-4.9)
[2024-12-26 10:12] LABS: Ferritin > 1000 ng/mL (15-150)
[2024-12-26 11:15] LABS: Glucose Point of Care 355 mg/dL (70-110)
--- NOTE | 2024-12-26 12:14 | XR_ITS ---
WS: [id number] Right foot, 3 views, 12/26/2024 Clinical Data: Possible osteomyelitis Comparison: None. Findings: The right fourth and fifth fifth toes are absent. There is been amputation of the distal third of the right fourth metatarsal and distal two thirds of the right fifth metatarsal. There is a soft tissue defect on the plantar surface of the foot underlying the base of the right fifth metatarsal which is irregular and eroded. This finding is suspicious for osteomyelitis. There is osteoarthritis of the tarsal bones. The remaining 3 toes show erosion of the ungual tuft of the distal phalanx of the first toe. The plantar surface of the distal calcaneus shows irregularity which may represent osteoarthritis and less likely osteomyelitis. No fractures are seen. XR/XR foot RT min 3V* [id number] Impression: 1. Erosion of the base of the right fifth metatarsal with underlying soft tissu e defect suspicious for osteomyelitis. 2. Amputation of the right fourth and fifth toes and portions of the correspond ing metatarsals. 3. Erosion of the ungual tuft of the distal phalanx of the right great toe. 4. Tarsal osteoarthritis. 5. Irregularity of posterior plantar surface of calcaneus.
--- NOTE | 2024-12-26 15:23 | P.CONIM_ITS ---
Providers/Reason For Consult 2 Consulting Physician/Specialty*: Di Lu MD / Infectious disease Reason for Consult*: Staph aureus bacteremia Requesting Physician: Jovanni Ramires MD Attending Physician: Jovanni Ramires MD Primary Care Provider: Lexis Ring MD History of Present Illness History of Present Illness Berenice Pierce is a 64 year old female with end-stage renal disease currently on hemodialysis via a right chest wall tunneled catheter which has been in place for at least over a year. 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 Patient currently gets hemodialysis at home 4 times a week. Typically her assists her with hemodialysis at home. Her has recently been repeated. Complications from RSV, as a result patient has not been able to do dialysis over the past week. She presented to the hospital on December 25, 2024 with fatigue lethargy cough and dyspnea related to having missed her dialysis. She was started on emergent dialysis yesterday. Incidentally blood cultures taken admission have resulted positive for Staph aureus. Review of past records shows that patient has a history of Staphylococcus aureus infections including osteomyelitis which has resulted in amputations of toes over her right extremity. Currently she has an ulcer over the right foot on the plantar aspect for which she follows with wound care. Previously patient used to be followed at the wound care clinic in [facility], however more recently she has had wound care services at home. States that the current wound in question has been present for several months, has been priscila more recently. There is no obvious bone exposure. MRI of the foot has been ordered, results are currently awaited. Patient has extensive hardware in the thoracolumbar spine additionally. Review of chart shows that she was on chronic Keflex suppression related to hardware infection however she states that she was taken off of it over a year ago. We have requested last records from an infectious disease physician Dr. Lay's office at [facility]. She she is uncertain as to the indication of chronic Keflex suppression. She has not noted any recent swelling redness or discharge at the HD catheter site. She has had no problems drawing blood or doing dialysis via the cathter until interruption about a week ago. A PICC line was placed last night due to poor IV access. Multiple attempts had been made to place a central line by multiple physicians, however due to poor IV access eventually a PICC line was placed. Blood culture from December 25, 2024 is positive for Staph aureus, awaiting sensitivity results to see if this is MSSA or MRSA. She denies any recent fever. She has tested positive for RSV currently. Review of Systems 2 General: Reports: 10 or more systems reviewed and unremarkable except in HPI and below Const: Denies: fever(s), chills or body aches Eyes: Denies: change in vision, blurry vision or photophobia ENMT: Reports: hoarseness; Denies: throat pain, enlarged tonsils, odynophagia or nasal congestion Card: Denies: chest pain, palpitations, irregular heart rhythm, edema, swelling of feet/ankles, lightheadedness, pre-syncope, dyspnea on exertion or orthopnea Resp: Denies: dyspnea, productive cough, non-productive cough, wheezing, stridor, pain on inspiration, change in phlegm color, hemoptysis or chest congestion GI: Denies: abdominal pain, nausea, vomiting, hematemesis, coffee ground emesis, dysphagia, heartburn, diarrhea, constipation, GI cramping, change in stool character, hematochezia or melena : Denies: flank pain, difficulty voiding, dysuria, urinary frequency, urinary urgency, urinary hesitancy or hematuria Musc: Denies: neck pain, back pain, extremity pain, joint swelling, joint warmth or deformity Neuro: Denies: headache(s), numbness in extremities, weakness in extremities, sensory changes, difficulty walking, frequent falls, dizziness, vertigo, behavioral changes, Slurred speech present or seizure-like activity Psych: Denies: anxiety, depression, suicidal ideation or homicidal ideation Endo: Denies: polyuria, polydipsia, tired all the time, cold intolerance or hot flashes Shawn/Lymph: Denies: easy bruising or easy bleeding Medications/Allergies Home Medications ?Medication ?Instructions ?Recorded ?Confirmed ?Last Taken ?Type albuterol sulfate 2.5 mg/3 mL 2.5 mg inhalation Q6H 12/25/24 Unknown History (0.083 %) solution for nebulization apixaban 5 mg tablet (Eliquis) 5 mg PO BID 12/25/24 Unknown History calcitriol 0.25 mcg capsule 0.25 mcg PO DAILY 12/25/24 12/25/24 Unknown History calcitriol 0.5 mcg capsule 0.5 mcg PO DAILY 12/25/24 0 12/25/24 Unknown History hydralazine 50 mg tablet 50 mg PO TID 12/25/24 Unknown History hydrocodone 7.5 mg-acetaminophen 1 - 2 tab PO .Q4-6H 0 12/25/24 12/25/24 Unknown History 325 mg tablet insulin glargine U-300 conc 300 25 unit SUBCUT BID 04/1312/25/24 Unknown History unit/mL (3 mL) subcutaneous pen (Toujeo Max U-300 SoloStar) insulin lispro 100 unit/mL 22 unit SUBCUT .WITH EACH M EAL 12/25/24 12/25/24 Unknown History subcutaneous pen ipratropium bromide 42 mcg (0.06 2 spray intranasal TI D 12/25/24 12/25/24 Unknown History %) nasal spray levothyroxine 112 mcg tablet 112 mcg PO DAILY 12/25/24 12/25/24 Unknown History metoprolol tartrate 25 mg tablet 25 mg PO BID 12/25/24 12/25/24 Unknown History pregabalin 25 mg capsule 25 mg PO DAILY 12/25/2404/13 Unknown History ropinirole 0.25 mg tablet 0.25 mg PO TID 12/25/2404/13 Unknown History ropinirole 0.5 mg tablet 0.5 mg PO TID 12/25/2412/25 Unknown History semaglutide 2 mg/dose (8 mg/3 mL) 2 mg SUBCUT Q7D 04/1312/25/24 Unknown History subcutaneous pen injector (Ozempic) vitamin B complex and vitamin C 1 cap PO DAILY 5 12/25/24 Unknown History no.20-folic acid 1 mg capsule ([place] Caps) Allergies Allergy/AdvReac Type Severity Reaction Status Date / Time bumetanide Allergy Unknown Unknown Verified 09/17/24 14:03 sulfamethoxazole (From Allergy Unknown Unknown Verified 04/08/21 14:06 Bactrim) trimethoprim (From Bactrim) Allergy Unknown Unknown Verified 04/08/21 14:06 levofloxacin (From Levaquin) Allergy ADR-Itching Verified 04/08/21 14:06 NSAIDS (Non-Steroidal Allergy Unknown Verified 04/08/21 14:06 Anti-Inflamma Current Medications Generic Name Dose Route Start Last Admin Trade Name Maday PRN Reason Stop Dose Admin Hydrocodone Bitart/Acetaminophen 1 tab 12/25/24 18:00 12/26/24 11:21 Hydrocodone-Acetaminophen 7.5-325 Mg Tablet PO 1 tab Q6H NELIA Administration Albuterol/Ipratropium 3 ml 12/25/24 20:00 12/26/24 08:57 Ipratropium-Albuterol 3 Ml Neb INHALATION 3 ml Q6H.RESP NELIA Administration Apixaban 5 mg 12/25/24 18:00 12/26/24 08:53 Apixaban 5 Mg Tablet PO 5 mg BID NELIA Administration Budesonide 0.5 mg 12/25/24 20:00 12/26/24 08:57 Budesonide 0.5 Mg/2 Ml Neb INHALATION 0.5 mg BID NELIA Administration Calcitriol 0.5 mcg 12/26/24 09:00 12/26/24 08:53 Calcitriol 0.25 Mcg Capsule PO 0.5 mcg DAILY NELIA Administration Docusate Sodium 100 mg 12/25/24 18:00 12/26/24 08:54 Docusate Sodium 100 Mg Capsule PO 100 mg BID NELIA Administration Amiodarone HCl/Dextrose 360 mg in 200 mls @ 0 mls/hr 12/25/24 22:30 12/26/24 09:13 Nexterone IV 1 mg/min .Q0M NELIA 33.33 mls/hr Administration Protocol Per Protocol Insulin Glargine 40 unit 12/26/24 09:00 12/26/24 09:09 Insulin Glargine 100 Units/1 Ml SUBCUT 40 unit BID NELIA Administration Insulin Human Lispro 0 unit 12/25/24 18:00 12/26/24 11:21 Insulin Lispro 100 Unit/1 Ml SUBCUT 14 unit WM&BEDTIME NELIA Administration Protocol Levothyroxine Sodium 112 mcg 12/26/24 09:00 12/26/24 08:54 Levothyroxine 112 Mcg Tablet PO 112 mcg DAILY NELIA Administration Metoprolol Tartrate 50 mg 12/26/24 09:00 12/26/24 09:10 Metoprolol Tartrate 25 Mg Tablet PO 50 mg BID NELIA Administration Morphine Sulfate 2 mg 12/25/24 17:28 12/25/24 21:23 Morphine 4 Mg/Ml Sdv 1 Ml IVP 2 mg Q4H PRN Administration SEVERE PAIN Pantoprazole Sodium 40 mg 12/25/24 17:28 12/25/24 21:23 Pantoprazole 40 Mg Sdv IVP 40 mg Q24H NELIA Administration Pregabalin 25 mg 12/26/24 09:00 12/26/24 08:53 Pregabalin 25 Mg Capsule PO 25 mg DAILY NELIA Administration Ropinirole HCl 0.25 mg 12/25/24 21:00 12/26/24 15:00 Ropinirole 0.25 Mg Tablet PO 0.25 mg TID NELIA Administration PFSH Acute 2 PFSH: Medical History Lumbar stenosis with neurogenic claudication Seizure PRES (posterior reversible encephalopathy syndrome) RLS (restless legs syndrome) TARA (obstructive sleep apnea) Chronic antibiotic suppression Staphylococcus epidermidis bacteremia Diastolic heart failure H/O staphylococcal septicemia Hyperglycemia Cellulitis Thyroid disease Chronic back pain Renal failure HTN (hypertension) Obesity Surgical History 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 H/O: hysterectomy Arteriovenous fistula History of tonsillectomy History of cholecystectomy History of back surgery History of appendectomy History of adenoidectomy Family History Other Cancer Social History Smoking and tobacco/nicotine status: never used tobacco/nicotine Alcohol intake: never Substance/Drug Use: never Lives independently: Yes Household members: spouse Housing: House Marital status: Vitals/I&O/Wt Last Vital Signs Temp 97.3 F L 12/25/24 23:55 Pulse 67 12/26/24 12:00 Resp 18 12/26/24 08:45 BP 138/39 12/26/24 12:00 Pulse Ox 97 12/26/24 12:00 O2 Del Method Nasal Cannula 12/26/24 08:45 O2 Flow Rate 2 12/26/24 08:45 12/26/24 12/26/24 12/26/24 06:59 14:59 22:59 Intake Total 700 / 700 Output Total 945 / 945 Balance -245 / -245 Weight last 48 hrs Weight 111.13 kg Weight 111.5 kg Weight 111 kg Weight 110.5 kg Weight 113.398 kg Physical Exam 2 Narrative: General: No acute distress, AO x3 HEENT: PERRLA, pupils bilaterally equal and reactive, pallors not present Chest: Normal vesicular breath sounds, no added sounds, equal good air entry bilaterally CVS: S1-S2 regular, no murmurs, no tachycardia, no gallops, no rubs Abdomen: Soft, nontender, no organomegaly, bowel sounds present Neuro: No focal deficits, no facial deformity, AO x3, power 5/5 in all limbs Extremities: Right HD tunneled catheter Urinary Catheter Management: [place]: Cath Placed During This Visit: yes Reason for Continuing Indwelling Catheter: Accurate Measurement of Urinary Output in Critically Ill Patients Urinary Catheter Date of Insertion: 12/25/24 Urinary Catheter Time of Insertion: 15:45 Data 12/26/24 03:45 12/26/24 03:45 Other Labs: Radiology Impressions Chest/Abdomen/Pelvis CT 12/25/24 17:44 IMPRESSION: 1. No pulmonary emboli. 2. Small right-sided pleural effusion. 3. No focal consolidation. IMPRESSION: 1. No bowel obstruction or inflammatory process associated with the bowel. 2. No free air or significant free fluid in the abdomen or pelvis. 3. The appendix is not visualized but there are no secondary signs of acute appendicitis. Chest X-Ray 12/26/24 07:34 Impression: Satisfactory insertion of left PICC line. Foot X-Ray 12/26/24 12:14 Impression: 1. Erosion of the base of the right fifth metatarsal with underlying soft tissue defect suspicious for osteomyelitis. 2. Amputation of the right fourth and fifth toes and portions of the corresponding metatarsals. 3. Erosion of the ungual tuft of the distal phalanx of the right great toe. 4. Tarsal osteoarthritis. 5. Irregularity of posterior plantar surface of calcaneus. Laboratory Results WBC 4.95 10^3/uL (3.29-11.43) 12/26/24 03:45 RBC 2.59 10^6/uL (3.85-5.65) L 12/26/24 03:45 Hgb 7.60 g/dL (11.27-16.99) L 12/26/24 03:45 Hct 23.1 % (36-47) L 12/26/24 03:45 MCV 89.2 fl (85-98) 12/26/24 03:45 MCH 29.3 pg (27-33) 12/26/24 03:45 MCHC 32.9 g/dL (30-55) 12/26/24 03:45 RDW 13.9 % (12.1-15.1) 12/26/24 03:45 Plt Count 80 10^3/cmm (157-399) L 12/26/24 03:45 MPV 11.6 fL (7.4-10.4) H 12/26/24 03:45 Neut % (Auto) 88.1 % 12/26/24 03:45 Lymph % (Auto) 8.7 % 12/26/24 03:45 [place] % (Auto) 3.0 % 12/26/24 03:45 Eos % (Auto) 0.0 % 12/26/24 03:45 Baso % (Auto) 0.0 % 12/26/24 03:45 Neut # (Auto) 4.36 10^3/uL (1.8-7.7) 12/26/24 03:45 Lymph # (Auto) 0.4 10^3/uL (0.8-4.8) L 12/26/24 03:45 [place] # (Auto) 0.2 10^3/uL (0.2-0.9) 12/26/24 03:45 Eos # (Auto) 0.0 10^3/uL (0.0-0.8) 12/26/24 03:45 Baso # (Auto) 0.0 10^3/uL (0.0-0.1) 12/26/24 03:45 Nucleated RBC % (auto) 0 % 12/26/24 03:45 Nucleated RBCs # 0.0 /100WBC 12/26/24 03:45 ESR 43 mm/hr (0-15) H 12/26/24 03:45 D-Dimer >= 20.00 ug/mLFEU (0-0.59) H 12/25/24 15:09 Specimen Type Arterial 12/25/24 15:19 Sample Site Brachial, left 12/25/24 15:19 ABG pH 7.30 (7.35-7.45) L 12/25/24 15:19 ABG pCO2 30.1 mmHg (35-45) L 12/25/24 15:19 ABG pO2 69.2 mmHg (80.0-100.0) L 12/25/24 15:19 ABG PO2/FiO2 Ratio 247 12/25/24 15:19 ABG HCO3 14.9 mmol/L (22-26) L 12/25/24 15:19 ABG O2 Saturation 93.1 12/25/24 15:19 ABG Base Excess -10.4 mmol/L (-2.0-2.0) L 12/25/24 15:19 Seun Test N/a 12/25/24 15:19 A-a O2 Gradient 11.8 mmHg (5-10) H 12/25/24 15:19 Hematocrit 26.1 % (37-47) L 12/25/24 15:19 Hgb O2 Saturation 90.2 % (95-100) L 12/25/24 15:19 Carboxyhemoglobin 1.7 %THgb (0.4-20.1) 12/25/24 15:19 Methemoglobin 1.3 % (0.4-1.5) 12/25/24 15:19 Total Hemoglobin 8.5 g/dL (12-16) L 12/25/24 15:19 Sodium 128.0 mmol/L (131-143) L 12/25/24 15:19 Potassium 7.0 mmol/L (3.5-5.0) H 12/25/24 15:19 Glucose 353.0 mg/dL (70-115) H 12/25/24 15:19 Ionized Calcium 1.0 mmol/L (1.1-1.4) L 12/25/24 15:19 O2 Delivery Device Nc 12/25/24 15:19 O2 Liters/Min 2.0 % 12/25/24 15:19 FiO2 28.0 % 12/25/24 15:19 [employer] ID [place] 12/25/24 15:19 Sodium 138 mmol/L (136-145) 12/26/24 03:45 Potassium 4.8 mmol/L (3.5-5.1) 12/26/24 03:45 Chloride 92 mmol/L (98-107) L 12/26/24 03:45 Carbon Dioxide 24 mmol/L (22-29) 12/26/24 03:45 Anion Gap 26.8 (5-19) H 12/26/24 03:45 BUN 88 mg/dL (8-23) H* 12/26/24 03:45 Creatinine 9.3 mg/dL (0.5-0.9) H* 12/26/24 03:45 GFR Calculation 4.2 mL/min (90-130) L 12/26/24 03:45 Glucose 304 mg/dL (65-115) H 12/26/24 03:45 POC Glucose 355 mg/dL (70-110) H 12/26/24 11:13 Estimat Average Glucose 143 12/25/24 15:09 Hemoglobin A1c 6.6 % (4.0-6.0) H 12/25/24 15:09 Calculated Osmolality 324 mOsm/kg (285-295) H 12/26/24 03:45 Lactic Acid 2.4 mmol/L (0.5-2.2) H 12/25/24 15:09 Lactic Acid (Sepsis) 2.7 mmol/L (0.5-2.2) H 12/25/24 17:48 Calcium 8.1 mg/dL (8.5-10.5) L 12/26/24 03:45 Phosphorus 6.3 mg/dL (2.5-4.5) H 12/26/24 03:45 Magnesium 2.4 mg/dL (1.7-2.3) H 12/26/24 03:45 Iron 90 ug/dL (37-145) 12/26/24 03:45 TIBC 119 mcg/dl 12/26/24 03:45 % Saturation 75.6 % (20-50) H 12/26/24 03:45 Unsat Iron Binding 29 ug/dL (112-347) L 12/26/24 03:45 Ferritin > 1000 ng/mL (15-150) H 12/26/24 03:45 Total Bilirubin 0.8 mg/dL (0.15-1.2) 12/26/24 03:45 AST 62 U/L (0-32) H 12/26/24 03:45 ALT 131 U/L (0-33) H 12/26/24 03:45 Alkaline Phosphatase 265 U/L (35-105) H 12/26/24 03:45 Troponin T Baseline 191 ng/L (0-10) H* 12/25/24 15:09 Troponin T 120 Minute 175.2 ng/L (0-10) H 12/25/24 17:48 Delta Troponin T -15.8 ABS# (0-10) L 12/25/24 17:48 Troponin T Hi Sens 6Hr 159.6 ng/L (0-10) H 12/25/24 21:50 Troponin T Hi Sens 6Hr Delta -31.4 ng/L (0-12) L 12/25/24 21:50 C-Reactive Protein 210.8 mg/L (0.0-4.9) H 12/26/24 03:45 Total Protein 6.4 g/dL (6.6-8.7) L 12/26/24 03:45 Albumin 3.0 g/dL (3.5-5.2) L 12/26/24 03:45 Globulin 3.4 g/dL (1.3-4.6) 12/26/24 03:45 Triglycerides 193 mg/dL (0-150) H 12/26/24 03:45 Cholesterol 116 mg/dL (0-200) 12/26/24 03:45 LDL Cholesterol, Calc 60 mg/dL (50-129) 12/26/24 03:45 HDL Cholesterol 17 mg/dL (60-100) L 12/26/24 03:45 LDL/HDL Ratio 3.53 RATIO (0.00-3.22) H 12/26/24 03:45 Cholesterol/HDL Ratio 6.82 mg/dL (0.0-4.40) H 12/26/24 03:45 Vitamin B12 1199 pg/mL (232-1245) 12/25/24 15:09 Folate 14.6 ng/mL (4.8-37.3) 12/26/24 03:45 Procalcitonin 23.39 ng/mL (0-0.5) H 12/26/24 03:45 TSH 4.60 uIU/mL (0.27-4.20) H 12/25/24 15:09 PTH Intact 279.2 pg/mL (15-65) H 12/26/24 03:45 Calcium (PTH Intact) 8.0 mg/dL (8.5-10.5) L 12/26/24 03:45 Urine Color Yellow (Yellow) 12/25/24 19: Urine Appearance Turbid (CLEAR) A 12/25/24 19: Urine pH 6.5 (5-7) 12/25/24 19: Ur Specific [place] 1.018 (1.005-1.030) 12/25/24 19: Urine Protein 3+ (Negative) A 12/25/24: Urine Glucose (UA) Negative (Normal) 12/25/24: Urine Ketones Trace (Negative) 12/25/24: Urine Blood Trace (Negative) A 12/25/24: Urine Nitrate Negative (Negative) 12/25/24: Urine Bilirubin Negative (Negative) 12/25/24: Urine Urobilinogen 1.0 mg/dL (Negative) 12/25/24: Ur Leukocyte Esterase 3+ (Negative) A 12/25/24 19:25 Urine RBC 0-4 /hpf (0-2) H 12/25/24 19:25 Urine WBC 80-100 /hpf (0-5) H 12/25/24 19:25 Ur Squamous Epith Cells 0-4 /hpf (0-5) H 12/25/24 19:25 Amorphous Sediment Not Reportable 12/25/24:25 Urine Bacteria 4+ /hpf (NONE) H 12/25/24 19:25 Ur Random Sodium 40 mmol/L 12/25/24 19:25 Ur Random Potassium 52 mmol/L 12/25/24 19:25 Ur Random Chloride 22 mmol/L 12/25/24 19:25 Serum Ketones Negative (Negative) 12/25/24 15:09 Coronavirus (PCR) Negative (Negative) 12/25/24 15:12 Hep Bs Antigen Non-reactive (Nonreactive) 12/26/24 03:45 Hep Bs Antibody 79.7 (11.5-1000) 12/26/24 03:45 Hepatitis C Antibody Non-reactive (Nonreactive) 12/26/24 03:45 Influenza A (PCR) Negative (Negative) 12/25/24 15:12 Influenza Type B (PCR) Negative (Negative) 12/25/24 15:12 RSV (PCR) Positive (Negative) A 12/25/24 15:12 Micro: Microbiology 12/25/24 17:40 Blood Culture - Preliminary Blood Staphylococcus aureus 12/25/24 19:25 Bacterial Antigens - Final Urine Kidney 12/26/24 09:04 Blood Culture - Preliminary Blood SPECIMEN COLLECTED 12/26/24 09:00 Blood Culture - Preliminary Blood SPECIMEN COLLECTED 12/25/24 17:48 Blood Culture - Preliminary Blood SPECIMEN COLLECTED NAME: Berenice Pierce LOC: ICU U #: [id number] AGE/SX: 64/F ROOM: [facility] R E12/25/[address]: Jovanni Ramires MD : 1960 BED: 1 D IS: FAX #: STATUS: ADM IN TLOC: Spec #: [id number] Khari: 12/26/24 Status: RES Req #: [id number] Recd: 12/26/[address]: Jovanni Ramires MD Src: Blood SpDesc: Ordered: Bcult Comments: Comment seperate sets from periphery and dialysis catheter Procedure Result Verified Site Blood Culture Preliminary 12/26/24 SPECIMEN COLLECTED NAME: Berenice Pierce LOC: ICU U #: [id number] AGE/SX: 64/F ROOM: [facility] R E12/25/[address]: Jovanni Ramires MD : 1960 BED: 1 D IS: FAX #: STATUS: ADM IN TLOC: Spec #: [id number] Khari: 12/26/24 Status: RES Req #: [id number] Recd: 12/26/[address]: Jovanni Ramires MD Src: Blood SpDesc: Ordered: Bcult Comments: Comment seperate sets from periphery and dialysis catheter Procedure Result Verified Site Blood Culture Preliminary 12/26/24 SPECIMEN COLLECTED NAME: Berenice Pierce LOC: ICU U #: [id number] AGE/SX: 64/F ROOM: ICU10 R E12/25/[address]: Jovanni Ramires MD : 1960 BED: 1 D IS: FAX #: STATUS: ADM IN TLOC: Spec #: [id number] Khari: 12/25/24 Status: RECD Req #: [id number] Recd: 12/25/[address]: Jovanni Ramires MD Src: Urine CC SpDesc: Ordered: UC Procedure Result Verified Site UC PENDING NAME: StanKyungBerenice LOC: ICU U #: [id number] AGE/SX: 64/F ROOM: ICU10 R E12/25/[address]: Jovanni Ramires MD : 1960 BED: 1 D IS: FAX #: STATUS: ADM IN TLOC: Spec #: [id number] Khari: 12/25/24 Status: COMP Req #: [id number] Recd: 12/25/[address]: Jovanni Ramires MD Src: Urine Kid SpDesc: Ordered: Bacterial AG Procedure Result Verified Site Bacterial Antigen Final 12/26/24-1037 Streptococcus Group B Negative for Streptococcus Group B Antigen Haemophilus influenzae B Negative or Haemophilus influenzae B Antigen S. pneumoniae Antigen Negative for S. pneumoniae Antigen N.meningitidis A,C,Y,W135 Negative for N.meningitidis A,C,Y,W135 Antigen N.meningitidis B/E.coli Negative for N.meningitidis B/E.coli K1 Antigen NAME: Berenice Pierce LOC: ICU U #: [id number] AGE/SX: 64/F ROOM: ICU10 R E12/25/[address]: Jovanni Ramires MD : 1960 BED: 1 D IS: FAX #: STATUS: ADM IN TLOC: Spec #: [id number] Khari: 12/25/24 Status: RES Req #: [id number] Recd: 12/25/[address]: Jovanni Ramires MD Src: Blood SpDesc: Ordered: Bcult Procedure Result Verified Site Blood Culture Preliminary 12/25/24-1806 SPECIMEN COLLECTED NAME: Berenice Pierce LOC: ICU U #: [id number] AGE/SX: 64/F ROOM: ICU10 R E12/25/[address]: Jovanni Ramires MD : 1960 BED: 1 D IS: FAX #: STATUS: ADM IN TLOC: Spec #: [id number] Khari: 12/25/24 Status: RES Req #: [id number] Recd: 12/25/[address]: Jovanni Ramires MD Src: Blood SpDesc: Ordered: Bcult Procedure Result Verified Site Blood Culture Preliminary 12/26/24-1430 3 OF 3 BOTTLES POSITIVE DIRECT GRAM STAIN: GRAM POSITIVE COCCI IN CLUSTERS RESULTS TO FOLLOW Organism 1 Staphylococcus aureus Growth 2 BOTTLES Gram Stain Charge Charge for Gram Stain CRITICAL RESULT YES/NO: YES CRITICAL CALLED BY: LM TO AND READ BACK BY: RASHID DATE: 12/26/24 TIME: 445 2ND CRITICAL RES YES/NO: YES 2ND CRITICAL CALLED BY: RT 2ND TO AND READ BACK BY: CliftonCO DATE: 12/26/24 2ND CRITICAL TIME: 0843 Blood Culture Preliminary (changed) 12/26/24-842 2 OF 3 BOTTLES POSITIVE DIRECT GRAM STAIN: GRAM POSITIVE COCCI IN CLUSTERS RESULTS TO FOLLOW Organism 1 Staphylococcus aureus Growth 2 BOTTLES Gram Stain Charge Charge for Gram Stain CRITICAL RESULT YES/NO: YES CRITICAL CALLED BY: LM TO AND READ BACK BY: RASHID DATE: 12/26/24 TIME: 445 2ND CRITICAL RES YES/NO: YES 2ND CRITICAL CALLED BY: RT 2ND TO AND READ BACK BY: CliftonCO DATE: 12/26/24 2ND CRITICAL TIME: 0843 Blood Culture Preliminary (changed) 12/26/24-445 2 OF 3 BOTTLES POSITIVE DIRECT GRAM STAIN: GRAM POSITIVE COCCI IN CLUSTERS RESULTS TO FOLLOW CRITICAL RESULT YES/NO: YES CRITICAL CALLED BY: LM TO AND READ BACK BY: RASHID DATE: 12/26/24 TIME: 044 A&P Assessment and plan (1) Staphylococcus aureus bacteremia: 64-year-old lady with multiple comorbidities as listed above presenting to the hospital currently with having missed dialysis and complications resulting thereof. Also testing positive for RSV infection. Found to have Staphylococcus aureus on blood cultures taken on December 25, 2024. Patient has a history of multiple Staph aureus infections in the past including osteomyelitis. Source is not readily evident, however presumably may be related to her HD catheter. Patient does have a chronic wound over her right foot, has history of chronic osteomyelitis of the foot which has resulted in amputations in the past. She has been treated for osteomyelitis in the past. X-rays showing destruction of the metatarsals. The wound itself currently appears to be healing, has healthy granulation tissue at base. No surrounding signs of cellulitis. Less likely to be the source of her current Staph aureus bacteremia. Patient is currently on piperacillin/tazobactam and vancomycin, which may be continued while pending susceptibility testing to be available from the isolate. Recommend to remove HD catheter A temporary dialysis catheter should be placed while we wait for cultures to be negative for approximately 72 hours before placing a new tunneled catheter. Patient has also in the interim had a PICC line placed yesterday. The PICC line would need to be discontinued prior to her new HD catheter being placed. Would be ideal to give patient a line free 72-hour interval (except for temporary dialysis catheter) before placing a new tunneled catheter. Recommend to obtain echocardiogram to evaluate for underlying endocarditis. Will follow (2) Chronic osteomyelitis: Chronic osteomyelitis of the right foot. She has been treated for the same in the past. Records requested from her previous ID physician's office. Right foot ulcer currently appearing to be healthy, no gross signs of infection, less likely to be the source of current bacteremia. PDMP PDMP Reviewed: Not Reviewed Consult Attestations 2 Medical Necessity Statement: Need for IV antibiotics, assessment of Staph aureus bacteremia Coding Level of Care Code Acute Code for Chg Fwd High MDM includes number and complexity of problems actively addressed during encounter, amount and/or complexity of data reviewed/ordered and described risk of complication, morbidity or mortality of management as documented Diagnoses Staphylococcus aureus bacteremia R78.81; B95.61 Chronic osteomyelitis M86.60
--- NOTE | 2024-12-26 16:43 | USCV_ITS ---
Pierce Berenice Age: 64 Gender: F : 1960 Exam Date: 12/26/2024 14:39 Ordering Phys: Jovanni Ramires MD Technologist: Exam Location: [facility] Indication: chf BP: 113 / 40 HR: 66 Rhythm: Sinus Technical Quality: Adequate MEASUREMENTS (Male / Female) Normal Values 2D ECHO LV Diastolic Diameter PLAX 4.6 cm 4.2 - 5.9 / 3.9 - 5.3 cm IVS Diastolic Thickness 1.7 cm 0.6 - 1.0 / 0.6 - 0.9 cm IVS Systolic Thickness 2.2 cm LVPW Diastolic Thickness 1.3 cm 0.6 - 1.0 / 0.6 - 0.9 cm LVPW Systolic Thickness 1.5 cm LVOT Diameter 2.5 cm LV Ejection Fraction 2D Teich 68.8 % LA Diameter 3.8 cm Aorta at Sinotubular Diameter 3.1 cm IVC Diameter 2.1 cm M-MODE LA Ao Ratio MM 1.4 AV Cusp Separation MM 1.8 cm DOPPLER AV Peak Velocity 118.0 cm/s LVOT Peak Velocity 79.0 cm/s AV Area Cont Eq vti 5.2 cm squared AV Area Cont Eq pk 3.2 cm squared MV Peak Velocity 104.0 cm/s MV Area PHT 3.6 cm squared Mitral E to A Ratio 1.6 TR Peak Velocity 143.0 cm/s TR Peak Gradient 8.2 mmHg TV Peak E Velocity 79.0 cm/s PV Peak Velocity 120.0 cm/s FINDINGS Left Ventricle Technically limited quality echocardiogram because of poor ultrasonic windows. LV systolic function is grossly normal Right Ventricle Grossly normal Right Atrium Normal in size Left Atrium Normal in size Mitral Valve Moderate mitral annular calcification. Trace mitral regurgitation. Aortic Valve Grossly thickened. No significant stenosis or regurgitation. Tricuspid Valve Insufficient TR jet to calculate RVSP Pulmonic Valve Not well visualized Pericardium Normal Aorta Normal in size IVC Not well visualized CONCLUSIONS Technically limited quality echocardiogram because of poor ultrasonic windows. Grossly LV systolic function is normal. Trace mitral regurgitation. Valvular structures are not well-visualized. Michael Dewey MD (Electronically Signed) Final Date: 27 December 2024 09:15 S
[2024-12-26] MEDS: pantoprazole 40 mg SDV IVP ×2 (16:50→16:58)
[2024-12-26] MEDS: morphine 4 mg/mL SDV 1 mL 2 MG IVP (16:51)
[2024-12-26 17:01] LABS: Glucose Point of Care 256 mg/dL (70-110)
--- NOTE | 2024-12-26 17:33 | P.CONIM_ITS ---
Providers/Reason For Consult 2 Consulting Physician/Specialty*: Orthopedics Reason for Consult*: Nonhealing ulcer right plantar surface of the foot Requesting Physician: Jovanni Ramires MD Attending Physician: Jovanni Ramires MD Primary Care Provider: Lexis Ring MD History of Present Illness History of Present Illness Berenice Pierce is a 64 year old female Review of Systems 2 General: Reports: 10 or more systems reviewed and unremarkable except in HPI and below Const: Denies: fever(s), chills or body aches Eyes: Denies: change in vision, blurry vision or photophobia ENMT: Reports: hoarseness; Denies: throat pain, enlarged tonsils, odynophagia or nasal congestion Card: Denies: chest pain, palpitations, irregular heart rhythm, edema, swelling of feet/ankles, lightheadedness, pre-syncope, dyspnea on exertion or orthopnea Resp: Denies: dyspnea, productive cough, non-productive cough, wheezing, stridor, pain on inspiration, change in phlegm color, hemoptysis or chest congestion GI: Denies: abdominal pain, nausea, vomiting, hematemesis, coffee ground emesis, dysphagia, heartburn, diarrhea, constipation, GI cramping, change in stool character, hematochezia or melena : Denies: flank pain, difficulty voiding, dysuria, urinary frequency, urinary urgency, urinary hesitancy or hematuria Musc: Denies: neck pain, back pain, extremity pain, joint swelling, joint warmth or deformity Neuro: Denies: headache(s), numbness in extremities, weakness in extremities, sensory changes, difficulty walking, frequent falls, dizziness, vertigo, behavioral changes, Slurred speech present or seizure-like activity Psych: Denies: anxiety, depression, suicidal ideation or homicidal ideation Endo: Denies: polyuria, polydipsia, tired all the time, cold intolerance or hot flashes Shawn/Lymph: Denies: easy bruising or easy bleeding Medications/Allergies Home Medications ?Medication ?Instructions ?Recorded ?Confirmed ?Last Taken ?Type albuterol sulfate 2.5 mg/3 mL 2.5 mg inhalation Q6H 12/25/24 Unknown History (0.083 %) solution for nebulization apixaban 5 mg tablet (Eliquis) 5 mg PO BID 12/25/24 Unknown History calcitriol 0.25 mcg capsule 0.25 mcg PO DAILY 12/25/24 12/25/24 Unknown History calcitriol 0.5 mcg capsule 0.5 mcg PO DAILY 12/25/24 0 12/25/24 Unknown History hydralazine 50 mg tablet 50 mg PO TID 12/25/24 Unknown History hydrocodone 7.5 mg-acetaminophen 1 - 2 tab PO .Q4-6H 0 12/25/24 12/25/24 Unknown History 325 mg tablet insulin glargine U-300 conc 300 25 unit SUBCUT BID 04/1312/25/24 Unknown History unit/mL (3 mL) subcutaneous pen (Toujeo Max U-300 SoloStar) insulin lispro 100 unit/mL 22 unit SUBCUT .WITH EACH M EAL 12/25/24 12/25/24 Unknown History subcutaneous pen ipratropium bromide 42 mcg (0.06 2 spray intranasal TI D 12/25/24 12/25/24 Unknown History %) nasal spray levothyroxine 112 mcg tablet 112 mcg PO DAILY 12/25/24 12/25/24 Unknown History metoprolol tartrate 25 mg tablet 25 mg PO BID 12/25/24 12/25/24 Unknown History pregabalin 25 mg capsule 25 mg PO DAILY 12/25/2404/13 Unknown History ropinirole 0.25 mg tablet 0.25 mg PO TID 12/25/2404/13 Unknown History ropinirole 0.5 mg tablet 0.5 mg PO TID 12/25/2412/25 Unknown History semaglutide 2 mg/dose (8 mg/3 mL) 2 mg SUBCUT Q7D 04/1312/25/24 Unknown History subcutaneous pen injector (Ozempic) vitamin B complex and vitamin C 1 cap PO DAILY 12/25/24 Unknown History no.20-folic acid 1 mg capsule (Antoni Caps) Allergies Allergy/AdvReac Type Severity Reaction Status Date / Time bumetanide Allergy Unknown Unknown Verified 09/17/24 14:03 sulfamethoxazole (From Allergy Unknown Unknown Verified 04/08/21 14:06 Bactrim) trimethoprim (From Bactrim) Allergy Unknown Unknown Verified 04/08/21 14:06 levofloxacin (From Levaquin) Allergy ADR-Itching Verified 04/08/21 14:06 NSAIDS (Non-Steroidal Allergy Unknown Verified 04/08/21 14:06 Anti-Inflamma Current Medications Generic Name Dose Route Start Last Admin Trade Name Calebq PRN Reason Stop Dose Admin Hydrocodone Bitart/Acetaminophen 1 tab 12/25/24 18:00 12/26/24 11:21 Hydrocodone-Acetaminophen 7.5-325 Mg Tablet PO 1 tab Q6H NELIA Administration Albuterol/Ipratropium 3 ml 12/25/24 20:00 12/26/24 15:26 Ipratropium-Albuterol 3 Ml Neb INHALATION 3 ml Q6H.RESP NELIA Administration Apixaban 5 mg 12/25/24 18:00 12/26/24 16:50 Apixaban 5 Mg Tablet PO 5 mg BID NELIA Administration Budesonide 0.5 mg 12/25/24 20:00 12/26/24 08:57 Budesonide 0.5 Mg/2 Ml Neb INHALATION 0.5 mg BID NELIA Administration Calcitriol 0.5 mcg 12/26/24 09:00 12/26/24 08:53 Calcitriol 0.25 Mcg Capsule PO 0.5 mcg DAILY NELIA Administration Docusate Sodium 100 mg 12/25/24 18:00 12/26/24 17:00 Docusate Sodium 100 Mg Capsule PO Not Given BID NELIA Amiodarone HCl/Dextrose 360 mg in 200 mls @ 0 mls/hr 12/25/24 22:30 12/26/24 09:15 Nexterone IV 0.5 mg/min .Q0M NELIA 16.67 mls/hr Titration Protocol Per Protocol Insulin Glargine 40 unit 12/26/24 09:00 12/26/24 17:10 Insulin Glargine 100 Units/1 Ml SUBCUT 40 unit BID NELIA Administration Insulin Human Lispro 0 unit 12/25/24 18:00 12/26/24 17:10 Insulin Lispro 100 Unit/1 Ml SUBCUT 8 unit WM&BEDTIME NELIA Administration Protocol Levothyroxine Sodium 112 mcg 12/26/24 09:00 12/26/24 08:54 Levothyroxine 112 Mcg Tablet PO 112 mcg DAILY NELIA Administration Methylprednisolone Sodium Succinate 40 mg 12/26/24 18:00 12/26/24 16:51 Methylprednisolone Sod Succ 40 Mg/Ml Inj IVP 40 mg BID NELIA Administration Metoprolol Tartrate 50 mg 12/26/24 09:00 12/26/24 17:11 Metoprolol Tartrate 25 Mg Tablet PO 50 mg BID NELIA Administration Morphine Sulfate 2 mg 12/25/24 17:28 12/26/24 16:51 Morphine 4 Mg/Ml Sdv 1 Ml IVP 2 mg Q4H PRN Administration SEVERE PAIN Pantoprazole Sodium 40 mg 12/25/24 17:28 12/26/24 16:58 Pantoprazole 40 Mg Sdv IVP 40 mg Q24H NELIA Administration Pregabalin 25 mg 12/26/24 09:00 12/26/24 08:53 Pregabalin 25 Mg Capsule PO 25 mg DAILY NELIA Administration Ropinirole HCl 0.25 mg 12/25/24 21:00 12/26/24 15:00 Ropinirole 0.25 Mg Tablet PO 0.25 mg TID NELIA Administration PFSH Acute 2 PFSH: Medical History (Updated 12/26/24 @ 17:41 by Derik Valdes MD) [facility] (current) use of opiate analgesic Pain management contract signed Lumbar stenosis with neurogenic claudication Seizure PRES (posterior reversible encephalopathy syndrome) RLS (restless legs syndrome) TARA (obstructive sleep apnea) Chronic antibiotic suppression Staphylococcus epidermidis bacteremia Diastolic heart failure H/O staphylococcal septicemia Hyperglycemia Cellulitis Thyroid disease Chronic back pain Renal failure HTN (hypertension) Obesity Surgical History 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 H/O: hysterectomy Arteriovenous fistula History of tonsillectomy History of cholecystectomy History of back surgery History of appendectomy History of adenoidectomy Family History Other Cancer Social History Smoking and tobacco/nicotine status: never used tobacco/nicotine Alcohol intake: never Substance/Drug Use: never Lives independently: Yes Household members: spouse Housing: House Marital status: Vitals/I&O/Wt Last Vital Signs Temp 97.3 F L 12/25/24 23:55 Pulse 67 12/26/24 16:15 Resp 14 12/26/24 16:51 BP 102/46 12/26/24 16:15 Pulse Ox 92 12/26/24 16:51 O2 Del Method Nasal Cannula 12/26/24 15:26 O2 Flow Rate 2 12/26/24 15:26 12/26/24 12/26/24 12/26/24 06:59 14:59 22:59 Intake Total 700 / 700 1.111 / 1.111 Output Total 945 / 945 Balance -245 / -245 1.111 / 1.111 Weight last 48 hrs Weight 245 lb Weight 245 lb 13.047 oz Weight 244 lb 11.41 oz Weight 243 lb 9.773 oz Weight 250 lb Physical Exam 2 Narrative: General: No acute distress, AO x3 HEENT: PERRLA, pupils bilaterally equal and reactive, pallors not present Chest: Normal vesicular breath sounds, no added sounds, equal good air entry bilaterally CVS: S1-S2 regular, no murmurs, no tachycardia, no gallops, no rubs Abdomen: Soft, nontender, no organomegaly, bowel sounds present Neuro: No focal deficits, no facial deformity, AO x3, power 5/5 in all limbs Extremities: Right HD tunneled catheter Orthopedic evaluation: Patient is in bed. Being somewhat amount of distress. She is initially very defiant about having any type of surgery or amputation done before even discussed anything with her. Examination of her right lower extremity demonstrates that there are changes of vascular insufficiency distally. There are some skin changes in color around her distal calf and ankle region. Her right foot demonstrates loss of fourth and fifth digits with also what appears to be debridement and removal of the fifth metatarsal a portion of it. She has a large dry ulceration on the bottom of her foot in the central lateral aspect of it. It has darkened skin around the edges and granulation tissue at the central portion. There appears to be some dry or thickened exudate in the area however no bone is identified in the wound. Palpating the area there is a bony prominence which more likely this fifth metatarsal artery and remnants of it. There is no active drainage from this area. Patient has no sensation in the area and therefore there is no pain to palpation or examination. Urinary Catheter Management: [place]: Cath Placed During This Visit: yes Reason for Continuing Indwelling Catheter: Accurate Measurement of Urinary Output in Critically Ill Patients Urinary Catheter Date of Insertion: 12/25/24 Urinary Catheter Time of Insertion: 15:45 Data 12/26/24 03:45 12/26/24 03:45 Other Labs: Radiology Impressions Chest/Abdomen/Pelvis CT 12/25/24 17:44 IMPRESSION: 1. No pulmonary emboli. 2. Small right-sided pleural effusion. 3. No focal consolidation. IMPRESSION: 1. No bowel obstruction or inflammatory process associated with the bowel. 2. No free air or significant free fluid in the abdomen or pelvis. 3. The appendix is not visualized but there are no secondary signs of acute appendicitis. Chest X-Ray 12/26/24 07:34 Impression: Satisfactory insertion of left PICC line. Foot X-Ray 12/26/24 12:14 Impression: 1. Erosion of the base of the right fifth metatarsal with underlying soft tissue defect suspicious for osteomyelitis. 2. Amputation of the right fourth and fifth toes and portions of the corresponding metatarsals. 3. Erosion of the ungual tuft of the distal phalanx of the right great toe. 4. Tarsal osteoarthritis. 5. Irregularity of posterior plantar surface of calcaneus. Laboratory Results WBC 4.95 10^3/uL (3.29-11.43) 12/26/24 03:45 RBC 2.59 10^6/uL (3.85-5.65) L 12/26/24 03:45 Hgb 7.60 g/dL (11.27-16.99) L 12/26/24 03:45 Hct 23.1 % (36-47) L 12/26/24 03:45 MCV 89.2 fl (85-98) 12/26/24 03:45 MCH 29.3 pg (27-33) 12/26/24 03:45 MCHC 32.9 g/dL (30-55) 12/26/24 03:45 RDW 13.9 % (12.1-15.1) 12/26/24 03:45 Plt Count 80 10^3/cmm (157-399) L 12/26/24 03:45 MPV 11.6 fL (7.4-10.4) H 12/26/24 03:45 Neut % (Auto) 88.1 % 12/26/24 03:45 Lymph % (Auto) 8.7 % 12/26/24 03:45 [place] % (Auto) 3.0 % 12/26/24 03:45 Eos % (Auto) 0.0 % 12/26/24 03:45 Baso % (Auto) 0.0 % 12/26/24 03:45 Neut # (Auto) 4.36 10^3/uL (1.8-7.7) 12/26/24 03:45 Lymph # (Auto) 0.4 10^3/uL (0.8-4.8) L 12/26/24 03:45 [place] # (Auto) 0.2 10^3/uL (0.2-0.9) 12/26/24 03:45 Eos # (Auto) 0.0 10^3/uL (0.0-0.8) 12/26/24 03:45 Baso # (Auto) 0.0 10^3/uL (0.0-0.1) 12/26/24 03:45 Nucleated RBC % (auto) 0 % 12/26/24 03:45 Nucleated RBCs # 0.0 /100WBC 12/26/24 03:45 ESR 43 mm/hr (0-15) H 12/26/24 03:45 D-Dimer >= 20.00 ug/mLFEU (0-0.59) H 12/25/24 15:09 Specimen Type Arterial 12/25/24 15:19 Sample Site Brachial, left 12/25/24 15:19 ABG pH 7.30 (7.35-7.45) L 12/25/24 15:19 ABG pCO2 30.1 mmHg (35-45) L 12/25/24 15:19 ABG pO2 69.2 mmHg (80.0-100.0) L 12/25/24 15:19 ABG PO2/FiO2 Ratio 247 12/25/24 15:19 ABG HCO3 14.9 mmol/L (22-26) L 12/25/24 15:19 ABG O2 Saturation 93.1 12/25/24 15:19 ABG Base Excess -10.4 mmol/L (-2.0-2.0) L 12/25/24 15:19 Seun Test N/a 12/25/24 15:19 A-a O2 Gradient 11.8 mmHg (5-10) H 12/25/24 15:19 Hematocrit 26.1 % (37-47) L 12/25/24 15:19 Hgb O2 Saturation 90.2 % (95-100) L 12/25/24 15:19 Carboxyhemoglobin 1.7 %THgb (0.4-20.1) 12/25/24 15:19 Methemoglobin 1.3 % (0.4-1.5) 12/25/24 15:19 Total Hemoglobin 8.5 g/dL (12-16) L 12/25/24 15:19 Sodium 128.0 mmol/L (131-143) L 12/25/24 15:19 Potassium 7.0 mmol/L (3.5-5.0) H 12/25/24 15:19 Glucose 353.0 mg/dL (70-115) H 12/25/24 15:19 Ionized Calcium 1.0 mmol/L (1.1-1.4) L 12/25/24 15:19 O2 Delivery Device Nc 12/25/24 15:19 O2 Liters/Min 2.0 % 12/25/24 15:19 FiO2 28.0 % 12/25/24 15:19 Mold Yard Crane Operator ID Broma 12/25/24 15:19 Sodium 138 mmol/L (136-145) 12/26/24 03:45 Potassium 4.8 mmol/L (3.5-5.1) 12/26/24 03:45 Chloride 92 mmol/L (98-107) L 12/26/24 03:45 Carbon Dioxide 24 mmol/L (22-29) 12/26/24 03:45 Anion Gap 26.8 (5-19) H 12/26/24 03:45 BUN 88 mg/dL (8-23) H* 12/26/24 03:45 Creatinine 9.3 mg/dL (0.5-0.9) H* 12/26/24 03:45 GFR Calculation 4.2 mL/min (90-130) L 12/26/24 03:45 Glucose 304 mg/dL (65-115) H 12/26/24 03:45 POC Glucose 355 mg/dL (70-110) H 12/26/24 11:13 Estimat Average Glucose 143 12/25/24 15:09 Hemoglobin A1c 6.6 % (4.0-6.0) H 12/25/24 15:09 Calculated Osmolality 324 mOsm/kg (285-295) H 12/26/24 03:45 Lactic Acid 2.4 mmol/L (0.5-2.2) H 12/25/24 15:09 Lactic Acid (Sepsis) 2.7 mmol/L (0.5-2.2) H 12/25/24 17:48 Calcium 8.1 mg/dL (8.5-10.5) L 12/26/24 03:45 Phosphorus 6.3 mg/dL (2.5-4.5) H 12/26/24 03:45 Magnesium 2.4 mg/dL (1.7-2.3) H 12/26/24 03:45 Iron 90 ug/dL (37-145) 12/26/24 03:45 TIBC 119 mcg/dl 12/26/24 03:45 % Saturation 75.6 % (20-50) H 12/26/24 03:45 Unsat Iron Binding 29 ug/dL (112-347) L 12/26/24 03:45 Ferritin > 1000 ng/mL (15-150) H 12/26/24 03:45 Total Bilirubin 0.8 mg/dL (0.15-1.2) 12/26/24 03:45 AST 62 U/L (0-32) H 12/26/24 03:45 ALT 131 U/L (0-33) H 12/26/24 03:45 Alkaline Phosphatase 265 U/L (35-105) H 12/26/24 03:45 Troponin T Baseline 191 ng/L (0-10) H* 12/25/24 15:09 Troponin T 120 Minute 175.2 ng/L (0-10) H 12/25/24 17:48 Delta Troponin T -15.8 ABS# (0-10) L 12/25/24 17:48 Troponin T Hi Sens 6Hr 159.6 ng/L (0-10) H 12/25/24 21:50 Troponin T Hi Sens 6Hr Delta -31.4 ng/L (0-12) L 12/25/24 21:50 C-Reactive Protein 210.8 mg/L (0.0-4.9) H 12/26/24 03:45 Total Protein 6.4 g/dL (6.6-8.7) L 12/26/24 03:45 Albumin 3.0 g/dL (3.5-5.2) L 12/26/24 03:45 Globulin 3.4 g/dL (1.3-4.6) 12/26/24 03:45 Triglycerides 193 mg/dL (0-150) H 12/26/24 03:45 Cholesterol 116 mg/dL (0-200) 12/26/24 03:45 LDL Cholesterol, Calc 60 mg/dL (50-129) 12/26/24 03:45 HDL Cholesterol 17 mg/dL (60-100) L 12/26/24 03:45 LDL/HDL Ratio 3.53 RATIO (0.00-3.22) H 12/26/24 03:45 Cholesterol/HDL Ratio 6.82 mg/dL (0.0-4.40) H 12/26/24 03:45 Vitamin B12 1199 pg/mL (232-1245) 12/25/24 15:09 Folate 14.6 ng/mL (4.8-37.3) 12/26/24 03:45 Procalcitonin 23.39 ng/mL (0-0.5) H 12/26/24 03:45 TSH 4.60 uIU/mL (0.27-4.20) H 12/25/24 15:09 PTH Intact 279.2 pg/mL (15-65) H 12/26/24 03:45 Calcium (PTH Intact) 8.0 mg/dL (8.5-10.5) L 12/26/24 03:45 Urine Color Yellow (Yellow) 12/25/24 19: Urine Appearance Turbid (CLEAR) A 12/25/24 19:25 Urine pH 6.5 (5-7) 12/25/24 19:25 Ur Specific [place] 1.018 (1.005-1.030) 12/25/24 19: Urine Protein 3+ (Negative) A 12/25/24: Urine Glucose (UA) Negative (Normal) 12/25/24 19: Urine Ketones Trace (Negative) 12/25/24 19: Urine Blood Trace (Negative) A 12/25/24 19: Urine Nitrate Negative (Negative) 12/25/24 19: Urine Bilirubin Negative (Negative) 12/25/24 19:25 Urine Urobilinogen 1.0 mg/dL (Negative) 12/25/24 19:25 Ur Leukocyte Esterase 3+ (Negative) A 12/25/24 19:25 Urine RBC 0-4 /hpf (0-2) H 12/25/24 19:25 Urine WBC 80-100 /hpf (0-5) H 12/25/24 19:25 Ur Squamous Epith Cells 0-4 /hpf (0-5) H 12/25/24 19:25 Amorphous Sediment Not Reportable 12/25/24 19:25 Urine Bacteria 4+ /hpf (NONE) H 12/25/24 19:25 Ur Random Sodium 40 mmol/L 12/25/24 19:25 Ur Random Potassium 52 mmol/L 12/25/24 19:25 Ur Random Chloride 22 mmol/L 12/25/24 19:25 Serum Ketones Negative (Negative) 12/25/24 15:09 Coronavirus (PCR) Negative (Negative) 12/25/24 15:12 Hep Bs Antigen Non-reactive (Nonreactive) 12/26/24 03:45 Hep Bs Antibody 79.7 (11.5-1000) 12/26/24 03:45 Hepatitis C Antibody Non-reactive (Nonreactive) 12/26/24 03:45 Influenza A (PCR) Negative (Negative) 12/25/24 15:12 Influenza Type B (PCR) Negative (Negative) 12/25/24 15:12 RSV (PCR) Positive (Negative) A 12/25/24 15:12 Micro: Microbiology 12/25/24 17:40 Blood Culture - Preliminary Blood Staphylococcus aureus 12/25/24 19:25 Bacterial Antigens - Final Urine Kidney 12/26/24 09:04 Blood Culture - Preliminary Blood SPECIMEN COLLECTED 12/26/24 09:00 Blood Culture - Preliminary Blood SPECIMEN COLLECTED 12/25/24 17:48 Blood Culture - Preliminary Blood SPECIMEN COLLECTED A&P Assessment and plan (1) Staphylococcus aureus bacteremia: 64-year-old lady with multiple comorbidities as listed above presenting to the hospital currently with having missed dialysis and complications resulting thereof. Also testing positive for RSV infection. Found to have Staphylococcus aureus on blood cultures taken on December 25, 2024. Patient has a history of multiple Staph aureus infections in the past including osteomyelitis. Source is not readily evident, however presumably may be related to her HD catheter. Patient does have a chronic wound over her right foot, has history of chronic osteomyelitis of the foot which has resulted in amputations in the past. She has been treated for osteomyelitis in the past. X-rays showing destruction of the metatarsals. The wound itself currently appears to be healing, has healthy granulation tissue at base. No surrounding signs of cellulitis. Less likely to be the source of her current Staph aureus bacteremia. Patient is currently on piperacillin/tazobactam and vancomycin, which may be continued while pending susceptibility testing to be available from the isolate. Recommend to remove HD catheter A temporary dialysis catheter should be placed while we wait for cultures to be negative for approximately 72 hours before placing a new tunneled catheter. Patient has also in the interim had a PICC line placed yesterday. The PICC line would need to be discontinued prior to her new HD catheter being placed. Would be ideal to give patient a line free 72-hour interval (except for temporary dialysis catheter) before placing a new tunneled catheter. Recommend to obtain echocardiogram to evaluate for underlying endocarditis. Will follow (2) Chronic osteomyelitis: Chronic osteomyelitis of the right foot. She has been treated for the same in the past. Records requested from her previous ID physician's office. Right foot ulcer currently appearing to be healthy, no gross signs of infection, less likely to be the source of current bacteremia. (3) Chronic ulcer of right foot: Assessment at this time is that she has a chronic foot ulcer on the right side. Appears to be attempting to heal. She indicates that she being seen by wound care individuals for quite some time now and felt that the wound was actually getting better. Review of medical records indicates it has been around for quite some time. Review of x-rays and MRI demonstrates what appears to be old osteomyelitis in the fifth metatarsal however there does not appear to be any sinus disconnecting bony tissue to the ulcerated area of the foot. Foot also appears not to be infected at this time and therefore do not believe that this is the cause of her septicemia. I have discussed the case with infectious disease and they are agreeable with this at this time. Plan My recommendations for her plan would be continued wound care by computer customer support specialist evaluation. I do believe that vascular study should be done to determine how viable this foot is. I have discussed briefly with the patient she needs to start considering below-knee amputation if this worsens and does not get better in the future. Otherwise at this time I have no indication for any surgical intervention. I do not feel that making an incision through granulation tissue Orth from the site of the foot to try and get tissue would be more damaging to the foot than beneficial for diagnosis and treatment. PDMP PDMP Reviewed: Not Reviewed Consult Attestations 2 Medical Necessity Statement: Need for IV antibiotics, assessment of Staph aureus bacteremia Coding Level of Care Code 43830 Diagnoses Staphylococcus aureus bacteremia R78.81; B95.61 Chronic osteomyelitis M86.60 Chronic ulcer of right foot L97.519
--- NOTE | 2024-12-26 17:44 | PC.NURSE ---
bp 97/23, Dr. cohen gave vo to decrease evening dose of 50 mg metoprolol to 25 mg
[2024-12-26] MEDS: amiodarone 200 mg Tablet PO (18:17)
[2024-12-26] MEDS: metoprolol tartrate 25 mg Tablet PO (18:17)
[2024-12-26] MEDS: ALPRAZolam 0.5 mg Tablet PO (18:41)
--- NOTE | 2024-12-26 19:10 | PHA.VACGOAL ---
Vancomycin Goal - Goal Vancomycin Goal:: 15-20 mg/L Vancomycin Indication:: Other (STAPHYLOCOCCUS AUREUS BACTEREMIA) - Therapy Day of therpy:: Day 1 of [] Actual body weight (kg): 245 lb - Data Labs: WBC 4.95 10^3/uL (3.29-11.43) 12/26/24 03:45 RBC 2.59 10^6/uL (3.85-5.65) L 12/26/24 03:45 Hgb 7.60 g/dL (11.27-16.99) L 12/26/24 03:45 Hct 23.1 % (36-47) L 12/26/24 03:45 MCV 89.2 fl (85-98) 12/26/24 03:45 MCH 29.3 pg (27-33) 12/26/24 03:45 MCHC 32.9 g/dL (30-55) 12/26/24 03:45 RDW 13.9 % (12.1-15.1) 12/26/24 03:45 Sodium 138 mmol/L (136-145) 12/26/24 03:45 Potassium 4.8 mmol/L (3.5-5.1) 12/26/24 03:45 Chloride 92 mmol/L (98-107) L 12/26/24 03:45 Carbon Dioxide 24 mmol/L (22-29) 12/26/24 03:45 Anion Gap 26.8 (5-19) H 12/26/24 03:45 BUN 88 mg/dL (8-23) H* 12/26/24 03:45 Creatinine 9.3 mg/dL (0.5-0.9) H* 12/26/24 03:45 GFR Calculation 4.2 mL/min (90-130) L 12/26/24 03:45 Pertinent tests:: Microbiology 12/25/24 17:40 Blood Blood Culture - Preliminary Staphylococcus aureus History of multiple Staph aureus infections in the past including osteomyelitis Treatment plan:: new consult Regimen:: INITIAL LOADING DOSE OF 2000 MG GIVEN. Follow up:: PATIENT WILL RECEIVE INTERMITTENT DOSING POST LOADING DOSE. VANC LEVEL SCHEDULED FOR 24 HOURS AFTER LOADING DOSE. TROUGH 2/ @0930. WILL CONTINUE TO MONITOR AND FOLLOW UP DAILY.
[2024-12-26 21:09] LABS: Glucose Point of Care 251 mg/dL (70-110)
[2024-12-26] MEDS: ondansetron 2 mg/ML SDV 2 mL 4 MG IVP (23:42)
[2024-12-26 23:54] LABS: Glucose Point of Care 276 mg/dL (70-110)
[2024-12-27] VITALS (19 sets, daily range): BP systolic 97–169; BP diastolic 40–74; PULSE 56–78; RESP 16–27; TEMP 36.1–36.4; O2SAT 94–100
[2024-12-27] MEDS: metoclopramide 5 mg/mL SDV 2 mL IVP (00:39)
[2024-12-27] MEDS: LORazepam 0.5 mg Tablet PO (00:39)
[2024-12-27] MEDS: ipratropium-albuterol 3 mL Neb INHALATION ×2 (01:53→16:25)
[2024-12-27 04:47] LABS: Basophils % 0.1 %; Hematocrit 23.3 % (36-47); Lymphocytes # 0.5 10^3/uL (0.8-4.8); Lymphocytes % 6.4 %; Mean Corpuscular HGB Conc 31.3 g/dL (30-55); Mean Corpuscular Volume 92.5 fl (85-98); Mean Platelet Volume 11.9 fL (7.4-10.4); Monocytes # 0.3 10^3/uL (0.2-0.9); Monocytes % 3.5 %; Neutrophils # 7.47 10^3/uL (1.8-7.7); Neutrophils % 89.6 %; Nucleated Red Blood Cells % 0 %; Platelet Count 73 10^3/cmm (157-399); Red Blood Count 2.52 10^6/uL (3.85-5.65); Red Cell Distribution Width 14.1 % (12.1-15.1); White Blood Count 8.33 10^3/uL (3.29-11.43)
[2024-12-27 05:09] LABS: Alanine Aminotransferase 90 U/L (0-33); Alkaline Phosphatase 235 U/L (35-105); Aspartate Amino Transferase 27 U/L (0-32); Calcium 8.1 mg/dL (8.5-10.5); Carbon Dioxide 23 mmol/L (22-29); Chloride 88 mmol/L (98-107); Creatinine Clr Calc Pharmacy 6.7205; Globulin 3.6 g/dL (1.3-4.6); Glomerular Filtration Rate 3.8 mL/min (90-130); Glucose 319 mg/dL (65-115); Magnesium 2.7 mg/dL (1.7-2.3); Osmolality Calculated 325 mOsm/kg (285-295); Sodium 135 mmol/L (136-145); Total Bilirubin 0.5 mg/dL (0.15-1.2); Total Protein 6.6 g/dL (6.6-8.7)
[2024-12-27 05:11] LABS: Anion Gap 29.4 (5-19); Potassium 5.4 mmol/L (3.5-5.1)
[2024-12-27 05:15] LABS: Blood Urea Nitrogen 105 mg/dL (8-23)
[2024-12-27 06:44] LABS: OR HCG Qualitative Urine Negative (Negative)
--- NOTE | 2024-12-27 07:46 | P.PN_ITS ---
Subjective 2 Subjective: getting HD C/O NAUSEA Medications: Reviewed: Yes Vitals/I&O/Wt Last Vital Signs Temp 97.0 F L 12/27/24 07:30 Pulse 61 12/27/24 07:30 Resp 17 12/27/24 07:30 BP 169/58 12/27/24 07:30 Pulse Ox 100 12/27/24 04:00 O2 Del Method Nasal Cannula 12/27/24 01:53 O2 Flow Rate 2 12/27/24 01:53 12/26/24 12/27/24 12/27/24 22:59 06:59 14:59 Intake Total 298.889 / 300.000 500 / 800.000 Balance 298.889 / 300.000 500 / 800.000 Weight last 48 hrs Weight 116.038 kg Weight 116.038 kg Weight 116.038 kg Weight 111.13 kg Weight 111.5 kg Weight 111 kg Weight 110.5 kg Weight 113.398 kg Physical Exam 2 Narrative: in bed, sitting up HR tachy and irreg irreg a fib BP low normal heent- nc/at, eomi neck supple lungs dull bases. no crackles or rhonchi heart irreg irreg, + s1, s2 abd soft, nt, nd, + bs ext 1+ edema neuro- a,a, o x 2 + RT IJ PC seen and examined w/ nurse using A/VV equipment Urinary Catheter Management: [place]: Cath Placed During This Visit: yes Reason for Continuing Indwelling Catheter: Accurate Measurement of Urinary Output in Critically Ill Patients Urinary Catheter Date of Insertion: 12/25/24 Urinary Catheter Time of Insertion: 15:45 Data 12/27/24 03:52 12/27/24 03:52 Micro: Microbiology 12/25/24 17:48 Blood Culture - Preliminary Blood NEGATIVE TO DATE 12/25/24 17:40 Blood Culture - Preliminary Blood Staphylococcus aureus 12/25/24 19:25 Bacterial Antigens - Final Urine Kidney 12/26/24 09:04 Blood Culture - Preliminary Blood SPECIMEN COLLECTED 12/26/24 09:00 Blood Culture - Preliminary Blood SPECIMEN COLLECTED A&P Assessment and plan (1) End stage renal disease on dialysis: 64 year old female with past medical history of end-stage renal disease on home hemodialysis, type 2 diabetes mellitus, staff epidermidis bacteremia, hypertension, diastolic heart failure chronically on anticoagulation with Eliquis, hypothyroidism was brought to the ER on dec 25, 2024 by her son from home because of worsening hypoxia, generalized weakness, difficulty breathing and poor mentation. Patient had emergent HD yesterday for hyperkalemia 1. a fib w/ RVR as per medicine/ cardiology 2. eSRD- pt missed her HHD, as her is no longer able to perform her home hemodialysis- her son is learning -HD today, and HD again tomorrow 3. anemia- check iron studies and give epo 4. a fib- on amiodarone. regarding a/c- as she is ESRD on HD. if on eliquis just for a fib- please decrease dose to 2.5 mg po bid seen and examined w/ RN- using A/V equipment pt consents to telehealth and to dialysis Plan improving hyperkalemia and confusion PDMP PDMP Reviewed: Not Reviewed Attestations 2 Medical Necessity Statement*: per lucie Coding Level of Care Code Acute Code for Chg Fwd Diagnoses End stage renal disease on dialysis N18.6; Z99.2
[2024-12-27 07:52] LABS: Glucose Point of Care 297 mg/dL (70-110)
[2024-12-27] MEDS: methylPREDNISolone sod succ 40 mg/mL INJ IVP (07:58)
[2024-12-27] MEDS: insulin glargine 100 units/1 mL 40 UNIT SUBCUT ×2 (07:58→17:50)
[2024-12-27] MEDS: ondansetron 2 mg/ML SDV 2 mL 4 MG IVP (07:58)
[2024-12-27] MEDS: insulin lispro 100 unit/1 mL SUBCUT ×4 (07:59→21:17)
[2024-12-27 09:37] LABS: Vancomycin Trough 12.2 ug/mL (10-15)
[2024-12-27] MEDS: piperacillin-tazobactam 3.375 GM in sodium chloride 0.9% (plus) 50 ML IV (11:28)
[2024-12-27] MEDS: HYDROcodone-acetaminophen 7.5-325 mg Tablet 1 TAB PO ×3 (11:29→23:52)
[2024-12-27 11:31] LABS: Glucose Point of Care 193 mg/dL (70-110)
[2024-12-27] MEDS: vancomycin 500 MG in sodium chloride 0.9% (plus) 100 ML 200 MG IV (12:58)
--- NOTE | 2024-12-27 13:45 | PM.CONSULT ---
Providers/Reason For Consult Consulting Physician/Specialty*: Dr. Evan Rooney, DO/General Surgery Reason for Consult*: Bacteremia with permacath in place Attending Physician: Jovanni Ramires MD Primary Care Provider: Lexis Ring MD History of Present Illness History of Present Illness Berenice Pierce is a 64 year old female who is currently being treated in the intensive care unit for RSV, Staph aureus bacteremia and osteomyelitis of the right foot. Because of her bacteremia, general surgery was consulted for permacath removal and temporary hemodialysis catheter placement. Patient denies any pain or other symptoms Review of Systems General: Reports: 10 or more systems reviewed and unremarkable except in HPI and below Medications/Allergies Home Medications ?Medication ?Instructions ?Recorded ?Confirmed ?Last Taken ?Type albuterol sulfate 2.5 mg/3 mL 2.5 mg inhalation Q6H 12/25/24 12/25/24 Unknown History (0.083 %) solution for nebulization apixaban 5 mg tablet (Eliquis) 5 mg PO BID 12/25/24 12/25/24 Unknown History calcitriol 0.25 mcg capsule 0.25 mcg PO DAILY 12/25/24 12/25/24 Unknown History calcitriol 0.5 mcg capsule 0.5 mcg PO DAILY 12/25/24 12/25/24 Unknown History hydralazine 50 mg tablet 50 mg PO TID 12/25/24 12/25/24 Unknown History hydrocodone 7.5 mg-acetaminophen 1 - 2 tab PO .Q4-6H 12/25/24 12/25/24 Unknown History 325 mg tablet insulin glargine U-300 conc 300 25 unit SUBCUT BID 12/25/24 12/25/24 Unknown History unit/mL (3 mL) subcutaneous pen (Toujeo Max U-300 SoloStar) insulin lispro 100 unit/mL 22 unit SUBCUT .WITH EACH MEAL 12/25/24 12/25/24 Unknown History subcutaneous pen ipratropium bromide 42 mcg (0.06 2 spray intranasal TID 12/25/24 12/25/24 Unknown History %) nasal spray levothyroxine 112 mcg tablet 112 mcg PO DAILY 12/25/24 12/25/24 Unknown History metoprolol tartrate 25 mg tablet 25 mg PO BID 12/25/24 12/25/24 Unknown History pregabalin 25 mg capsule 25 mg PO DAILY 12/25/24 12/25/24 Unknown History ropinirole 0.25 mg tablet 0.25 mg PO TID 12/25/24 12/25/24 Unknown History ropinirole 0.5 mg tablet 0.5 mg PO TID 12/25/24 12/25/24 Unknown History semaglutide 2 mg/dose (8 mg/3 mL) 2 mg SUBCUT Q7D 12/25/24 12/25/24 Unknown History subcutaneous pen injector (Ozempic) vitamin B complex and vitamin C 1 cap PO DAILY 12/25/24 12/25/24 Unknown History no.20-folic acid 1 mg capsule (Antoni Caps) Allergies Allergy/AdvReac Type Severity Reaction Status Date / Time bumetanide Allergy Unknown Unknown Verified 09/17/24 14:03 sulfamethoxazole (From Allergy Unknown Unknown Verified 04/08/21 14:06 Bactrim) trimethoprim (From Bactrim) Allergy Unknown Unknown Verified 04/08/21 14:06 levofloxacin (From Levaquin) Allergy ADR-Itching Verified 04/08/21 14:06 NSAIDS (Non-Steroidal Allergy Unknown Verified 04/08/21 14:06 Anti-Inflamma Current Medications Generic Name Dose Route Start Last Admin Trade Name Freq PRN Reason Stop Dose Admin Hydrocodone Bitart/Acetaminophen 1 tab 12/25/24 18:00 12/28/24 05:39 Hydrocodone-Acetaminophen 7.5-325 Mg Tablet PO 1 tab Q6H NELIA Administration Albuterol/Ipratropium 3 ml 12/25/24 20:00 12/28/24 07:33 Ipratropium-Albuterol 3 Ml Neb INHALATION 3 ml Q6H.RESP NELIA Administration Alprazolam 0.5 mg 12/26/24 11:44 12/26/24 18:41 Alprazolam 0.5 Mg Tablet PO 0.5 mg BID PRN Administration ANXIETY Amiodarone HCl 200 mg 12/26/24 18:00 12/28/24 08:56 Amiodarone 200 Mg Tablet PO 200 mg BID NELIA Administration Budesonide 0.5 mg 12/27/24 08:00 12/28/24 07:34 Budesonide 0.5 Mg/2 Ml Neb INHALATION 0.5 mg BID.RESPIRATORY NELIA Administration Calcitriol 0.5 mcg 12/26/24 09:00 12/28/24 08:56 Calcitriol 0.25 Mcg Capsule PO 0.5 mcg DAILY NELIA Administration Cefepime HCl 1,000 mg 12/27/24 17:30 12/27/24 17:50 Cefepime 1,000 Mg Sdv IVP 1,000 mg Q24H NELIA Administration Protocol Docusate Sodium 100 mg 12/25/24 18:00 12/28/24 08:56 Docusate Sodium 100 Mg Capsule PO 100 mg BID NELIA Administration Heparin Sodium (Porcine) 0 unit 12/27/24 13:50 12/27/24 22:25 Heparin 5,000 Unit/Ml Inj 1 Ml IVP 6,000 unit PRN PRN Administration Heparin Weight Based Protocol -Subsequent Bolus Protocol Heparin Sodium/Sodium Chloride 25,000 unit in 500 mls @ 0 mls/hr 12/27/24 14:00 12/28/24 04:30 Heparin Drip IV 14.52 unit/kg/hr CONT NELIA 34 mls/hr Titration Protocol Per Protocol Insulin Glargine 40 unit 12/26/24 09:00 12/28/24 08:55 Insulin Glargine 100 Units/1 Ml SUBCUT 40 unit BID NELIA Administration Insulin Human Lispro 0 unit 12/25/24 18:00 12/28/24 08:55 Insulin Lispro 100 Unit/1 Ml SUBCUT 4 unit WM&BEDTIME NELIA Administration Protocol Levothyroxine Sodium 112 mcg 12/26/24 09:00 12/28/24 08:56 Levothyroxine 112 Mcg Tablet PO 112 mcg DAILY NELIA Administration Methylprednisolone Sodium Succinate 40 mg 12/28/24 09:00 12/28/24 08:55 Methylprednisolone Sod Succ 40 Mg/Ml Inj IVP 40 mg DAILY NELIA Administration Metoprolol Tartrate 25 mg 12/26/24 18:00 12/28/24 08:56 Metoprolol Tartrate 25 Mg Tablet PO 25 mg BID NELIA Administration Morphine Sulfate 2 mg 12/25/24 17:28 12/26/24 16:51 Morphine 4 Mg/Ml Sdv 1 Ml IVP 2 mg Q4H PRN Administration SEVERE PAIN Nystatin 1 applic 12/28/24 09:00 12/28/24 08:55 Nystatin Powder 15 Gm Btl TOPICAL 1 applic BID NELIA Administration Ondansetron HCl 4 mg 12/25/24 17:28 12/27/24 07:58 Ondansetron 2 Mg/Ml Sdv 2 Ml IVP 4 mg Q6H PRN Administration vomiting, or N/V if npo Pantoprazole Sodium 40 mg 12/25/24 17:28 12/26/24 16:58 Pantoprazole 40 Mg Sdv IVP 40 mg Q24H NELIA Administration Pregabalin 25 mg 12/26/24 09:00 12/28/24 08:56 Pregabalin 25 Mg Capsule PO 25 mg DAILY NELIA Administration Ropinirole HCl 0.25 mg 12/25/24 21:00 12/28/24 08:56 Ropinirole 0.25 Mg Tablet PO 0.25 mg TID NELIA Administration PFSH Acute PFSH: Medical History penitentiary (current) use of opiate analgesic Pain management contract signed Lumbar stenosis with neurogenic claudication Seizure PRES (posterior reversible encephalopathy syndrome) RLS (restless legs syndrome) ATRA (obstructive sleep apnea) Chronic antibiotic suppression Staphylococcus epidermidis bacteremia Diastolic heart failure H/O staphylococcal septicemia Hyperglycemia Cellulitis Thyroid disease Chronic back pain Renal failure HTN (hypertension) Obesity Surgical History 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 H/O: hysterectomy Arteriovenous fistula History of tonsillectomy History of cholecystectomy History of back surgery History of appendectomy History of adenoidectomy Family History Other Cancer Social History Smoking and tobacco/nicotine status: never used tobacco/nicotine Alcohol intake: never Substance/Drug Use: never Lives independently: Yes Household members: spouse Housing: House Marital status: Vitals/I&O/Wt Last Vital Signs Temp 97.6 F 12/28/24 07:45 Pulse 66 12/28/24 07:45 Resp 16 12/28/24 07:45 BP 130/44 12/28/24 07:45 Pulse Ox 96 12/28/24 07:45 O2 Del Method Nasal Cannula 12/28/24 07:45 O2 Flow Rate 3 12/28/24 07:45 12/27/24 12/28/24 12/28/24 22:59 06:59 14:59 Intake Total 395.367 / 895.367 249.417 / 1144.784 Balance 395.367 / -1604.633 249.417 / -1355.216 Weight last 48 hrs Weight 267 lb Weight 258 lb 2.581 oz Weight 255 lb 13.12 oz Weight 255 lb 13.12 oz Weight 255 lb 13.12 oz Physical Exam Narrative: General : Patient is well developed, morbidly obese, no acute distress, oriented x3 Head : Normal cephalic, a-traumatic. Ears : Pinnae and external canal are normal. Hearing is normal. Eyes : PERRLA, Sclera and injection are normal. No conjunctival discharge. Nose : Mucous membranes are without erythema. Throat : buccal mucosa is normal, gums are without significant recession or hypertrophy. Lungs : Equal chest rise bilaterally, no use of accessory muscles, trachea is midline. Cor : Rate and rhythm are normal. Abdomen : Soft, ND, NT, no g/r/m Extremities : No edema, no cyanosis or clubbing, dorsalis pedis pulses are present bilaterally, non-tender to palpation of calves. Upper extremities are normal bilaterally. Back : non-tender to palpation, no CVA tenderness. Neuro : CN II - XII intact, Upper and lower extremities have equal and full strength Urinary Catheter Management: [place]: Cath Placed During This Visit: yes Reason for Continuing Indwelling Catheter: Other Urinary Catheter Date of Insertion: 12/25/24 Urinary Catheter Time of Insertion: 15:45 Data 12/28/24 05:53 12/28/24 05:53 Micro: Microbiology 12/28/24 05:53 Blood Culture - Preliminary Blood SPECIMEN COLLECTED 12/28/24 05:58 Blood Culture - Preliminary Blood SPECIMEN COLLECTED 12/26/24 09:04 Blood Culture - Preliminary Blood Staphylococcus aureus 12/26/24 09:00 Blood Culture - Preliminary Blood Staphylococcus aureus 12/25/24 17:48 Blood Culture - Preliminary Blood Staphylococcus aureus 12/25/24 17:40 Blood Culture - Preliminary Blood Staphylococcus aureus 12/25/24 19:25 Urine Culture - Preliminary Urine,Clean Catch Gram Negative Rods A&P Assessment and plan (1) Staphylococcus aureus bacteremia: (2) End stage renal disease on dialysis: Plan Hold Eliquis Last dose of Eliquis was this morning. Will place her on a heparin drip and hold Eliquis with plans to remove her permacath in place a temporary hemodialysis catheter on Monday. Heparin drip will need to be held at midnight tomorrow night. She will need that temporary dialysis catheter removed and a permacath placed before she leaves the hospital Medical management per hospitalist Temporary hemodialysis catheter placement Monday The risks and benefits of the procedure, including but not limited to, bleeding, infection, infection requiring Mediport removal antibiotic therapy and repeat surgery, damage to surrounding structures, scar, numbness, pain, pneumothorax requiring thoracostomy tube, were explained to the patient. He/She is understanding of the risks and wishes to proceed. PDMP PDMP Reviewed: Not Reviewed Coding Level of Care Code 64468 Diagnoses Staphylococcus aureus bacteremia R78.81; B95.61 End stage renal disease on dialysis N18.6; Z99.2
--- NOTE | 2024-12-27 14:41 | PC.SOCIAL ---
IMM Updated Updated pt on IMM. No questions voiced. Provided pt a copy. Initialed, dated, & timed a copy & placed in chart.
--- NOTE | 2024-12-27 14:51 | PM.PN ---
Subjective Subjective: No acute events overnight. Today morning seen with friend at bedside. Patient has remained hemodynamically stable and afebrile. Currently on 2 L saturating more than 95%. Complaining of nausea and vomiting earlier today morning. Patient remains anxious about her 's health. Requesting if she can be transferred to [facility] to be closer to her . Vitals/I&O/Wt Last Vital Signs Temp 97.0 F L 12/27/24 10:42 Pulse 62 12/27/24 13:00 Resp 16 12/27/24 13:00 BP 111/40 12/27/24 13:00 Pulse Ox 99 12/27/24 13:00 O2 Del Method Nasal Cannula 12/27/24 08:54 O2 Flow Rate 3 12/27/24 08:54 12/26/24 12/27/24 12/27/24 22:59 06:59 14:59 Intake Total 298.889 / 300.000 500 / 800.000 500 / 500 Output Total 2500 / 2500 Balance 298.889 / 300.000 500 / 800.000 -2000 / -2000 Weight last 48 hrs Weight 117.1 kg Weight 116.038 kg Weight 116.038 kg Weight 116.038 kg Weight 111.13 kg Weight 111.5 kg Weight 111 kg Weight 110.5 kg Physical Exam Narrative: General: No acute distress, AO x3, acute on chronic sick appearing, nasal cannula, hemodialysis catheter present in right hemithorax HEENT: PERRLA, pupils bilaterally equal and reactive Chest: Normal vesicular breath sounds, decreased air entry bilaterally lower zone, fine crackles in lower zone, equal good air entry bilaterally CVS: S1-S2 regular, no murmurs, no tachycardia, no gallops, no rubs Abdomen: Soft, nontender, no organomegaly, bowel sounds present Neuro: No focal deficits, no facial deformity, AO x3, power 5/5 in all limbs Skin: OTHER: Urinary Catheter Management: [place]: Cath Placed During This Visit: yes Reason for Continuing Indwelling Catheter: Accurate Measurement of Urinary Output in Critically Ill Patients Urinary Catheter Date of Insertion: 12/25/24 Urinary Catheter Time of Insertion: 15:45 Data 12/27/24 03:52 12/27/24 03:52 Micro: Microbiology 12/26/24 09:00 Blood Culture - Preliminary Blood NEGATIVE TO DATE 12/26/24 09:04 Blood Culture - Preliminary Blood NEGATIVE TO DATE 12/25/24 17:48 Blood Culture - Preliminary Blood Staphylococcus aureus 12/25/24 17:40 Blood Culture - Preliminary Blood Staphylococcus aureus 12/25/24 19:25 Urine Culture - Preliminary Urine,Clean Catch Gram Negative Rods 12/25/24 19:25 Bacterial Antigens - Final Urine Kidney A&P Assessment and plan (1) Staphylococcus aureus bacteremia: (2) Atrial fibrillation with RVR: (3) Acute hyperkalemia: (4) Metabolic acidosis: (5) Missed dialysis: (6) End stage renal disease on dialysis: (7) Uremia: (8) Acute and chronic respiratory failure with hypoxia: (9) Respiratory syncytial virus: (10) Diastolic heart failure: (11) HTN (hypertension): (12) TARA (obstructive sleep apnea): (13) Type 2 diabetes mellitus: (14) H/O staphylococcal septicemia: (15) Elevated troponin: (16) Poor intravenous access: Multiple attempts to central line overnight both femoral and left IJ. PICC line placed today morning before blood culture was reported. (17) Chronic osteomyelitis: Plan 64-year-old female with past medical history of end-stage renal disease on home hemodialysis presents to the ER today because of worsening hypoxia, weakness due to missed home dialysis as caregiver is admitted to another hospital for respiratory failure found to have renal failure with metabolic acidosis, hyperkalemia and hypoxic respiratory failure due to RSV. Staphylococcus bacteremia: 3 blood cultures from admission positive for Staph aureus. Sensitivities awaited. Patient has history of hardware placement, hemodialysis catheter in place, fistula. She does have an open wound at the base of her foot with concerns for osteomyelitis. Unlikely source of infection and septicemia for now. Appreciate ID recommendations. Plan for removal of HD catheter. Surgery consulted. Will plan for temporary dialysis catheter placement and HD catheter removal. Stop Eliquis. Switch to heparin drip. Follow-up sensitivities. For now continue with IV vancomycin and Zosyn. Follow-up random vancomycin levels. Appreciate MRI foot concerning for chronic osteomyelitis. Plan for MRI thoracic spine given history of thoracic hardware. Follow-up urine cultures. Hyperkalemia/metabolic acidosis/uremia/renal failure/hyponatremia: In setting of end-stage renal disease on home hemodialysis. Most likely in setting of missed home dialysis for over 1 week. Continue dialysis as per nephrology. [place] catheterization. Strict and proper charting, daily weights. Fluid restriction to less than 1500 cc. Metabolic acidosis resolved. Ketones negative. Most likely in setting of acute renal failure. Hypervolemic hyponatremia most likely in setting of missed dialysis. Resolved. A-fib with RVR: Rate controlled. Continue with amiodarone 200 mg twice daily, home dose of metoprolol 25 mg twice daily Heparin drip as above. Acute on chronic hypoxic respiratory failure: In setting of RSV bronchitis: Chronically on 2 L. Resolving. Most likely combination of congestive heart failure and RSV bronchitis. Appreciate blood culture. Sputum culture, MRSA swab not collected. Appreciate lactic, D-dimer. Appreciate CT chest abdomen pelvis. Continue with IV vancomycin and Zosyn for now. Continue with Pulmicort twice daily, DuoNeb every 6 hour Wean Solu-Medrol 40 mg IV daily. Type 2 diabetes mellitus: Ketones negative. Blood glucose improving. Takes Humalog 25 units twice daily along with lispro 22 units Premeal at home. Continue with Lantus 40 units twice daily, insulin sliding moderate dose protocol. A1c of 6.6. Elevated troponin: Most likely with concerns for demand ischemia. Negative cycle troponin. Echocardiogram shows poor echo windows with grossly normal LV functions. Hypertension: Goal blood pressure less than 140/90 mmHg. Takes hydralazine 50 mg 3 times daily, metoprolol 25 mg twice daily at home. For now we will continue with metoprolol. Will restart hydralazine as per blood pressures. IV hydralazine 10 mg every 4 hours as needed for systolic blood pressure more than 160 mmHg. Continue other chronic home medications including levothyroxine, pregabalin, Requip. Nausea and vomiting: Most likely in setting of worsening uremia again today. Will switch to liquid diet for now. Restart regular diet once nausea is resolved. Analgesia: Home dose of [place], Tylenol as needed Glycemic control: Lantus 40 units twice daily, insulin sliding scale at moderate dose protocol Nutrition: Renal diabetic dialysis diet CODE STATUS: Full code. Patient's son will be the DPOA. is also DPOA but he is intubated at another hospital for now. PUD prophylaxis: Protonix DVT prophylaxis: Eliquis will be sufficient for DVT prophylaxis. Discharge planning: Home with caregiver versus SNF depending on clinical picture going forward. Patient's is the primary caregiver and does home dialysis as admitted at another hospital. Can plan for discharge to home with home health and outpatient dialysis set up while comes back home. Patient requesting to be transferred to [facility] to be closer to her . We discussed transfer can be done but it would be asked for patient's request. Patient verbalizes understanding and wants to go ahead with transfer. As per transfer center from [facility] currently they have no MedSurg beds and requesting to be called back in 24 hours. Will continue to try. Transfer to MedSur floor. This documentation was created by [employer] sociology adjunct instructor software. Every effort was made to ensure accuracy of sociology adjunct instructor. Any obvious errors or omissions should be clarified with the author of the document. PDMP PDMP Reviewed: Last Reviewed 12/25/24 17:41 by Jovanni Ramires MD Attestations Medical Necessity Statement*: Requires further hospitalization for management of Staphylococcus bacteremia with concerns for infected HD dialysis catheter, hyperkalemia with uremia along with metabolic acidosis in setting of end-stage renal disease requiring hemodialysis Diagnoses Staphylococcus aureus bacteremia R78.81; B95.61 Atrial fibrillation with RVR I48.91 Acute hyperkalemia E87.5 Metabolic acidosis E87.20 Missed dialysis End stage renal disease on dialysis N18.6; Z99.2 Uremia N19 Acute and chronic respiratory failure with hypoxia J96.21 Respiratory syncytial virus B33.8 Diastolic heart failure I50.30 HTN (hypertension) I10 TARA (obstructive sleep apnea) G47.33 Type 2 diabetes mellitus E11.9 H/O staphylococcal septicemia Z86.19 Elevated troponin R79.89 Poor intravenous access Z78.9 Chronic osteomyelitis M86.60
[2024-12-27] MEDS: ropinirole 0.25 mg Tablet PO ×2 (15:10→21:18)
[2024-12-27] MEDS: heparin 5,000 unit/mL INJ 1 mL IVP ×2 (15:11→22:25)
[2024-12-27] MEDS: heparin drip 25,000 UNIT/500 ML PREMIX 34 UNIT IV (15:12)
[2024-12-27 17:13] LABS: Glucose Point of Care 218 mg/dL (70-110)
--- NOTE | 2024-12-27 17:18 | P.PN_ITS ---
Subjective 2 Subjective: Infectious disease progress note Blood cx positive for staph aureus from 12/26 as well Medications: Reviewed: Yes Vitals/I&O/Wt Last Vital Signs Temp 97.0 F L 12/27/24 10:42 Pulse 75 12/27/24 16:25 Resp 18 12/27/24 16:25 BP 111/40 12/27/24 13:00 Pulse Ox 96 12/27/24 16:25 O2 Del Method Nasal Cannula 12/27/24 16:25 O2 Flow Rate 2 12/27/24 16:25 12/27/24 12/27/24 12/27/24 06:59 14:59 22:59 Intake Total 500 / 800.000 500 / 500 150 / 650 Output Total 2500 / 2500 Balance 500 / 800.000 -2000 / -2000 150 / -1850 Weight last 48 hrs Weight 117.1 kg Weight 116.038 kg Weight 116.038 kg Weight 116.038 kg Weight 111.13 kg Weight 111.5 kg Weight 111 kg Weight 110.5 kg Physical Exam 2 Urinary Catheter Management: Tej[place]: Cath Placed During This Visit: yes Reason for Continuing Indwelling Catheter: Accurate Measurement of Urinary Output in Critically Ill Patients Urinary Catheter Date of Insertion: 12/25/24 Urinary Catheter Time of Insertion: 15:45 Data 12/27/24 03:52 12/27/24 03:52 Micro: Microbiology 12/26/24 09:04 Blood Culture - Preliminary Blood Staphylococcus aureus 12/26/24 09:00 Blood Culture - Preliminary Blood Staphylococcus aureus 12/25/24 17:48 Blood Culture - Preliminary Blood Staphylococcus aureus 12/25/24 17:40 Blood Culture - Preliminary Blood Staphylococcus aureus 12/25/24 19:25 Urine Culture - Preliminary Urine,Clean Catch Gram Negative Rods A&P Assessment and plan (1) Staphylococcus aureus bacteremia: (2) Chronic osteomyelitis: Plan 64-year-old lady with multiple comorbidities as listed above presenting to the hospital currently with having missed dialysis and complications resulting thereof. Also testing positive for RSV infection. Found to have Staphylococcus aureus on blood cultures taken on December 25, 2024. Patient has a history of multiple Staph aureus infections in the past including osteomyelitis. Source is not readily evident, however presumably may be related to her HD catheter. Patient does have a chronic wound over her right foot, has history of chronic osteomyelitis of the foot which has resulted in amputations in the past. She has been treated for osteomyelitis in the past. X-rays showing destruction of the metatarsals. The wound itself currently appears to be healing, has healthy granulation tissue at base. No surrounding signs of cellulitis. Less likely to be the source of her current Staph aureus bacteremia. Patient is currently on piperacillin/tazobactam and vancomycin, which may be continued while pending susceptibility testing to be available from the isolate. Recommend to remove HD catheter A temporary dialysis catheter should be placed while we wait for cultures to be negative for approximately 72 hours before placing a new tunneled catheter. Patient has also in the interim had a PICC line placed yesterday. The PICC line would need to be discontinued prior to her new HD catheter being placed. Would be ideal to give patient a line free 72-hour interval (except for temporary dialysis catheter) before placing a new tunneled catheter. Recommend to obtain echocardiogram to evaluate for underlying endocarditis. dec 27, 2024: Blood cx also + from 12/26 in addition to 12/25 for staph aureus, pending susceptibility please remove current tunneled catheter HD to continue via temp HD catheter until blood cx negative at least for 72 hrs will additionally need to remove newly placed PICC line on 12/26 once alternate access established. Pending MRI back TTE with poor windows, will likely need JOSE R if remains persistently + with blood cx Urine cx with GNR, patient known to be colonized with multiple GNR in the past , await sensitivity change zosyn to cefepime, continue vancomycin will follow PDMP PDMP Reviewed: Not Reviewed Attestations 2 Medical Necessity Statement*: per admitting Coding Level of Care Code Acute Code for [facility] Diagnoses Staphylococcus aureus bacteremia R78.81; B95.61 Chronic osteomyelitis M86.60
[2024-12-27] MEDS: cefepime 1,000 mg SDV 1000 MG IVP (17:50)
[2024-12-27] MEDS: docusate sodium 100 mg Capsule PO (17:50)
[2024-12-27] MEDS: metoprolol tartrate 25 mg Tablet PO (17:51)
[2024-12-27] MEDS: amiodarone 200 mg Tablet PO (17:51)
[2024-12-27 21:12] LABS: Glucose Point of Care 328 mg/dL (70-110)
[2024-12-27 22:11] LABS: Partial Thromboplastin Time 28.8 SECONDS (23.9-36.7)
[2024-12-28] VITALS (15 sets, daily range): BP systolic 130–160; BP diastolic 44–74; PULSE 63–74; RESP 16–18; TEMP 36.3–36.7; O2SAT 93–100
[2024-12-28] MEDS: ipratropium-albuterol 3 mL Neb INHALATION ×3 (02:03→20:19)
[2024-12-28 04:07] LABS: Partial Thromboplastin Time 148.9 SECONDS (23.9-36.7)
[2024-12-28] MEDS: HYDROcodone-acetaminophen 7.5-325 mg Tablet 1 TAB PO ×3 (05:39→19:37)
[2024-12-28 06:08] LABS: Basophils % 0.1 %; Hematocrit 22.8 % (36-47); Lymphocytes # 0.7 10^3/uL (0.8-4.8); Mean Corpuscular HGB Conc 31.1 g/dL (30-55); Mean Corpuscular Hemoglobin 29.2 pg (27-33); Mean Corpuscular Volume 93.8 fl (85-98); Mean Platelet Volume 10.9 fL (7.4-10.4); Monocytes # 0.6 10^3/uL (0.2-0.9); Monocytes % 6.6 %; Neutrophils # 8.01 10^3/uL (1.8-7.7); Neutrophils % 85.3 %; Nucleated Red Blood Cells % 0 %; Platelet Count 63 10^3/cmm (157-399); Red Blood Count 2.43 10^6/uL (3.85-5.65); Red Cell Distribution Width 14.6 % (12.1-15.1); White Blood Count 9.39 10^3/uL (3.29-11.43)
[2024-12-28 06:14] LABS: MRSA PCR OZH (swab) NOT DETECTED (Not Detecte)
[2024-12-28 06:20] LABS: Vancomycin Random 16.8 ug/mL (20.0-40.0)
[2024-12-28 06:21] LABS: Alanine Aminotransferase 61 U/L (0-33); Albumin Level 2.8 g/dL (3.5-5.2); Alkaline Phosphatase 197 U/L (35-105); Anion Gap 23.4 (5-19); Aspartate Amino Transferase 19 U/L (0-32); Blood Urea Nitrogen 67 mg/dL (8-23); Calcium 8.2 mg/dL (8.5-10.5); Carbon Dioxide 23 mmol/L (22-29); Chloride 97 mmol/L (98-107); Globulin 3.2 g/dL (1.3-4.6); Glomerular Filtration Rate 5.8 mL/min (90-130); Glucose 155 mg/dL (65-115); Magnesium 2.3 mg/dL (1.7-2.3); Osmolality Calculated 311 mOsm/kg (285-295); Potassium 4.4 mmol/L (3.5-5.1); Sodium 139 mmol/L (136-145); Total Bilirubin 0.4 mg/dL (0.15-1.2)
[2024-12-28 06:29] LABS: Glucose Point of Care 170 mg/dL (70-110)
[2024-12-28] MEDS: budesonide 0.5 mg/2 mL Neb INHALATION ×2 (07:34→20:19)
[2024-12-28] MEDS: methylPREDNISolone sod succ 40 mg/mL INJ IVP (08:55)
[2024-12-28] MEDS: insulin glargine 100 units/1 mL 40 UNIT SUBCUT ×2 (08:55→19:37)
[2024-12-28] MEDS: insulin lispro 100 unit/1 mL SUBCUT ×3 (08:55→21:59)
[2024-12-28] MEDS: nystatin powder 15 gm Btl 1 APPLIC TOPICAL ×2 (08:55→19:39)
[2024-12-28] MEDS: docusate sodium 100 mg Capsule PO ×2 (08:56→19:38)
[2024-12-28] MEDS: ropinirole 0.25 mg Tablet PO ×2 (08:56→19:38)
[2024-12-28] MEDS: metoprolol tartrate 25 mg Tablet PO ×2 (08:56→19:38)
[2024-12-28] MEDS: calcitriol 0.25 mcg Capsule 0.5 MCG PO (08:56)
[2024-12-28] MEDS: amiodarone 200 mg Tablet PO ×2 (08:56→19:38)
[2024-12-28] MEDS: levothyroxine 112 mcg Tablet PO (08:56)
[2024-12-28] MEDS: pregabalin 25 mg Capsule PO (08:56)
--- NOTE | 2024-12-28 09:00 | MRR_ITS ---
PROCEDURE INFORMATION: Exam: MR Thoracic Spine Without Contrast Exam date and time: 12/28/2024 5:44 PM Age: 64 years old Clinical indication: Pain in thoracic spine; Prior surgery; Surgery date: 6+ months; Surgery type: Thoracic fusion; Additional info: Possible osteo TECHNIQUE: Imaging protocol: Magnetic resonance imaging of the thoracic spine without contrast. COMPARISON: CT thoracic spin wo con* [id number] 11/26/2019 9:10 PM FINDINGS: Bones/joints: There are postsurgical changes from T8 through T11 with bilateral pedicle screws and connecting bars in place, also present on the prior CT. Metallic artifact related to orthopedic hardware limits optimal evaluation. Vertebral bodies are normal in height. No evidence for fracture, osteomyelitis, or suspicious osseous lesion. Spinal cord: Normal in caliber and signal. No cord compression. T1-T2: No significant disc bulge or herniation. No significant central canal or neural foraminal stenosis. T2-T3: No significant disc bulge or herniation. No significant central canal or neural foraminal stenosis. T3-T4: No significant disc bulge or herniation. No significant central canal or neural foraminal stenosis. T4-T5: No significant disc bulge or herniation. No significant central canal or neural foraminal stenosis. T5-T6: No significant disc bulge or herniation. No significant central canal or neural foraminal stenosis. T6-T7: No significant disc bulge or herniation. No significant central canal or neural foraminal stenosis. T7-T8: No significant disc bulge or herniation. No significant central canal or neural foraminal stenosis. T8-T9: Postsurgical changes related to posterior spinal fusion. Small 3 mm AP posterior central disc protrusion. This appears to result in mild central canal narrowing. No significant neural foraminal stenosis. T9-T10: Postsurgical changes related to posterior spinal fusion. No significant central canal stenosis. The neural foramina are obscured by metallic artifact. T10-T11: Postsurgical changes related to posterior spinal fusion. Small posterior disc bulge. Findings appear to result in relative central canal narrowing without significant spinal stenosis. No significant neural foraminal stenosis. T11-T12: Small 3 mm AP right paracentral disc protrusion resulting in relative central canal narrowing. No significant central canal or neural foraminal stenosis. T12-L1: No significant disc bulge or herniation. No significant central canal or neural foraminal stenosis. Soft tissues: Unremarkable. Other findings: There is a small right pleural effusion. MR/MR thoracic spin wo con* [id number] IMPRESSION: 1. Postsurgical changes from T8 through T11 with posterior spinal fusion hardware in place. Metallic artifact related to the orthopedic hardware limits evaluation. 2. Mild degenerative changes from T8-9 through T11-12 with small posterior disc bulges/herniations as described above. 3. Small right pleural effusion. 4. No evidence for discitis or osteomyelitis.
--- NOTE | 2024-12-28 09:21 | P.PN_ITS ---
Subjective 2 Subjective: requests to go home Otherwise no complaints Medications: Reviewed: Yes Vitals/I&O/Wt Last Vital Signs Temp 97.6 F 12/28/24 07:45 Pulse 66 12/28/24 07:45 Resp 16 12/28/24 07:45 BP 130/44 12/28/24 07:45 Pulse Ox 96 12/28/24 07:45 O2 Del Method Nasal Cannula 12/28/24 07:45 O2 Flow Rate 3 12/28/24 07:45 12/27/24 12/28/24 12/28/24 22:59 06:59 14:59 Intake Total 395.367 / 895.367 249.417 / 1144.784 Balance 395.367 / -1604.633 249.417 / -1355.216 Weight last 48 hrs Weight 121.109 kg Weight 117.1 kg Weight 116.038 kg Weight 116.038 kg Weight 116.038 kg Physical Exam 2 Narrative: in bed, sitting up HR tachy and irreg irreg a fib BP low normal heent- nc/at, eomi neck supple lungs dull bases. no crackles or rhonchi heart irreg irreg, + s1, s2 abd soft, nt, nd, + bs ext 1+ edema neuro- a,a, o x 2 + RT IJ PC seen and examined w/ nurse using A/VV equipment Urinary Catheter Management: Te[place]: Cath Placed During This Visit: yes Reason for Continuing Indwelling Catheter: Other Urinary Catheter Date of Insertion: 12/25/24 Urinary Catheter Time of Insertion: 15:45 Data 12/28/24 05:53 12/28/24 05:53 Micro: Microbiology 12/28/24 05:53 Blood Culture - Preliminary Blood SPECIMEN COLLECTED 12/28/24 05:58 Blood Culture - Preliminary Blood SPECIMEN COLLECTED 12/26/24 09:04 Blood Culture - Preliminary Blood Staphylococcus aureus 12/26/24 09:00 Blood Culture - Preliminary Blood Staphylococcus aureus 12/25/24 17:48 Blood Culture - Preliminary Blood Staphylococcus aureus 12/25/24 17:40 Blood Culture - Preliminary Blood Staphylococcus aureus 12/25/24 19:25 Urine Culture - Preliminary Urine,Clean Catch Gram Negative Rods A&P Assessment and plan (1) End stage renal disease on dialysis: 64 year old female with past medical history of end-stage renal disease on home hemodialysis, type 2 diabetes mellitus, staff epidermidis bacteremia, hypertension, diastolic heart failure chronically on anticoagulation with Eliquis, hypothyroidism was brought to the ER on dec 25, 2024 by her son from home because of worsening hypoxia, generalized weakness, difficulty breathing and poor mentation. 1. a fib w/ RVR as per medicine/ cardiology 2. eSRD- pt missed her HHD, as her is no longer able to perform her home hemodialysis -HD today and plan to pull HD catheter tomorrow due to staph aureus bacteremia 3. anemia- check iron studies and give epo 4. a fib- on amiodarone. regarding a/c- as she is ESRD on HD. if on eliquis just for a fib- please decrease dose to 2.5 mg po bid 5.Staph aureus bacteremia seen and examined w/ RN- using A/V equipment pt consents to telehealth and to dialysis Plan improving hyperkalemia and confusion PDMP PDMP Reviewed: Not Reviewed Attestations 2 Medical Necessity Statement*: per lucie Coding Level of Care Code Acute Code for [facility] Diagnoses End stage renal disease on dialysis N18.6; Z99.2
--- NOTE | 2024-12-28 10:24 | P.PN_ITS ---
Subjective 2 Subjective: Patient seen and examined. No complaints Vitals/I&O/Wt Last Vital Signs Temp 97.6 F 12/28/24 07:45 Pulse 66 12/28/24 07:45 Resp 16 12/28/24 07:45 BP 130/44 12/28/24 07:45 Pulse Ox 96 12/28/24 07:45 O2 Del Method Nasal Cannula 12/28/24 07:45 O2 Flow Rate 3 12/28/24 07:45 12/27/24 12/28/24 12/28/24 22:59 06:59 14:59 Intake Total 395.367 / 895.367 249.417 / 1144.784 Balance 395.367 / -1604.633 249.417 / -1355.216 Weight last 48 hrs Weight 267 lb Weight 258 lb 2.581 oz Weight 255 lb 13.12 oz Weight 255 lb 13.12 oz Weight 255 lb 13.12 oz Physical Exam 2 Narrative: General: No acute distress, awake alert and oriented x 3 Skin: Right chest permacath in place without surrounding erythema or exudate Urinary Catheter Management: Tej[place]: Cath Placed During This Visit: yes Reason for Continuing Indwelling Catheter: Other Urinary Catheter Date of Insertion: 12/25/24 Urinary Catheter Time of Insertion: 15:45 Data 12/28/24 05:53 12/28/24 05:53 Micro: Microbiology 12/25/24 19:25 Urine Culture - Final Urine,Clean Catch Klebsiella pneumoniae 12/28/24 05:53 Blood Culture - Preliminary Blood SPECIMEN COLLECTED 12/28/24 05:58 Blood Culture - Preliminary Blood SPECIMEN COLLECTED 12/26/24 09:04 Blood Culture - Preliminary Blood Staphylococcus aureus 12/26/24 09:00 Blood Culture - Preliminary Blood Staphylococcus aureus 12/25/24 17:48 Blood Culture - Preliminary Blood Staphylococcus aureus 12/25/24 17:40 Blood Culture - Preliminary Blood Staphylococcus aureus A&P Assessment and plan (1) Staphylococcus aureus bacteremia: (2) End stage renal disease on dialysis: Plan Continue heparin drip and hold Eliquis with plans to remove her permacath in place a temporary hemodialysis catheter on Monday. Heparin drip will need to be held at midnight tonight. She will need that temporary dialysis catheter removed and a permacath placed before she leaves the hospital Medical management per hospitalist Temporary hemodialysis catheter placement Monday The risks and benefits of the procedure, including but not limited to, bleeding, infection, infection requiring Mediport removal antibiotic therapy and repeat surgery, damage to surrounding structures, scar, numbness, pain, pneumothorax requiring thoracostomy tube, were explained to the patient. He/She is understanding of the risks and wishes to proceed. PDMP PDMP Reviewed: Not Reviewed Attestations 2 Medical Necessity Statement*: per primary Coding Level of Care Code 68567 Diagnoses Staphylococcus aureus bacteremia R78.81; B95.61 End stage renal disease on dialysis N18.6; Z99.2
[2024-12-28 10:44] LABS: Hematocrit 23.2 % (36-47)
[2024-12-28 10:57] LABS: Partial Thromboplastin Time 66.2 SECONDS (23.9-36.7)
[2024-12-28 11:28] LABS: Glucose Point of Care 122 mg/dL (70-110)
--- NOTE | 2024-12-28 11:36 | P.PN_ITS ---
Subjective 2 Subjective: Patient was seen this a.m. The patient is quite emotional has to her having just gotten off the phone with physician taking care of her up in [place]. Her is not in good shape and she is anxious to get out of this hospital so she can go be with her . It sounds as if he may not survive this hospital stay. Otherwise she has no other complaints about her foot. Vitals/I&O/Wt Last Vital Signs Temp 97.6 F 12/28/24 07:45 Pulse 66 12/28/24 07:45 Resp 16 12/28/24 07:45 BP 130/44 12/28/24 07:45 Pulse Ox 96 12/28/24 07:45 O2 Del Method Nasal Cannula 12/28/24 07:45 O2 Flow Rate 3 12/28/24 07:45 12/27/24 12/28/24 12/28/24 22:59 06:59 14:59 Intake Total 395.367 / 895.367 249.417 / 1144.784 Balance 395.367 / -1604.633 249.417 / -1355.216 Weight last 48 hrs Weight 267 lb Weight 258 lb 2.581 oz Weight 255 lb 13.12 oz Weight 255 lb 13.12 oz Weight 255 lb 13.12 oz Physical Exam 2 Narrative: On exam of her right foot ulceration is unchanged. No new drainage no new erythema. No other abnormalities of the foot at this time. Urinary Catheter Management: Tejada: Cath Placed During This Visit: yes Reason for Continuing Indwelling Catheter: Other Urinary Catheter Date of Insertion: 12/25/24 Urinary Catheter Time of Insertion: 15:45 Data 12/28/24 10:34 12/28/24 05:53 Micro: Microbiology 12/25/24 17:48 Blood Culture - Final Blood Staphylococcus aureus 12/25/24 17:40 Blood Culture - Final Blood Staphylococcus aureus 12/25/24 19:25 Urine Culture - Final Urine,Clean Catch Klebsiella pneumoniae 12/28/24 05:53 Blood Culture - Preliminary Blood SPECIMEN COLLECTED 12/28/24 05:58 Blood Culture - Preliminary Blood SPECIMEN COLLECTED 12/26/24 09:04 Blood Culture - Preliminary Blood Staphylococcus aureus 12/26/24 09:00 Blood Culture - Preliminary Blood Staphylococcus aureus A&P Assessment and plan (1) 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 No orthopedic intervention is indicated at this time. Plan Plan at this time is to continue on with present care plans. Orthopedic surgical intervention is deemed necessary at this time. PDMP PDMP Reviewed: Not Reviewed Attestations 2 Medical Necessity Statement*: Patient is in for medical reasons at this time. No orthopedic indication for continued hospitalization at this time. Coding Level of Care Code Acute Code for [facility] Diagnoses Diabetic foot ulcer associated with secondary diabetes mellitus E08.621; L97.509
--- NOTE | 2024-12-28 11:59 | PC.NURSE ---
Pt PTT 66.2 so no change to heparin drip.
--- NOTE | 2024-12-28 12:34 | PC.NURSE ---
patient asked creative writer if we had meds locked up in the pixis. Child Caregiver had nurse check and we did not have the med bag. Called ICU they had the med bag so creative writer went down to pick it up. Child Caregiver took the med bag to the patient room so that family can take it home. Patient had a pad lock on the bag and was locking the zipper sides together while creative writer was advising that patient should not take meds out of the bag. Patient verbalized understand and is locking the bag so that her son Eugenio Stevenson could take them home so they would not get misplaced.
[2024-12-28] MEDS: heparin drip 25,000 UNIT/500 ML PREMIX 34 UNIT IV (12:38)
--- NOTE | 2024-12-28 13:54 | PC.HD ---
Heparin 1000 units loading dose administered at 1343 via HD catheter port per irrigation installation specialist's orders.
--- NOTE | 2024-12-28 14:56 | PM.PN ---
Subjective Subjective: Infectious disease progress note. Isolate from blood culture identified as MSSA. Changing to cefazolin today. Urine culture also with Klebsiella pneumonia sensitive to cefuroxime, CTX Medications: Reviewed: Yes Vitals/I&O/Wt Last Vital Signs Temp 97.3 F L 12/28/24 13:52 Pulse 68 12/28/24 13:52 Resp 18 12/28/24 13:52 BP 143/53 12/28/24 13:52 Pulse Ox 96 12/28/24 11:48 O2 Del Method Nasal Cannula 12/28/24 11:48 O2 Flow Rate 3 12/28/24 11:48 12/27/24 12/28/24 12/28/24 22:59 06:59 14:59 Intake Total 395.367 / 895.367 254.633 / 1150.000 Balance 395.367 / -1604.633 254.633 / -1350.000 Weight last 48 hrs Weight 121.109 kg Weight 117.1 kg Weight 116.038 kg Weight 116.038 kg Weight 116.038 kg Physical Exam Urinary Catheter Management: Te[place]: Cath Placed During This Visit: yes Reason for Continuing Indwelling Catheter: Other Urinary Catheter Date of Insertion: 12/25/24 Urinary Catheter Time of Insertion: 15:45 Data 12/28/24 10:34 12/28/24 05:53 Micro: Microbiology 12/26/24 09:00 Blood Culture - Final Blood Staphylococcus aureus 12/26/24 09:04 Blood Culture - Final Blood Staphylococcus aureus 12/25/24 17:40 Blood Culture - Final Blood Staphylococcus aureus 12/25/24 17:48 Blood Culture - Final Blood Staphylococcus aureus Blood Culture Final 12/28/24-1412 3 OF 3 BOTTLES POSITIVE DIRECT GRAM STAIN: GRAM POSITIVE COCCI IN CLUSTERS IDENTIFICATION BY DIRECT PCR Organism 1 Staphylococcus aureus Growth 3 BOTTLES Gram Stain Charge Charge for Gram Stain CRITICAL RESULT YES/NO: YES CRITICAL CALLED BY: SALOMON TO AND READ BACK BY: RASHID DATE: 12/26/24 TIME: 445 2ND CRITICAL RES YES/NO: YES 2ND CRITICAL CALLED BY: 2ND TO AND READ BACK BY: JUAN J DATE: 12/26/24 2ND CRITICAL TIME: 0843 S aureus M.I.C. RX --------- ------ * Ciprofloxacin <=1 S * Clindamycin <=0.5 S * Erythromycin <=0.5 S * Levofloxacin <=1 S * Linezolid 4 S * Moxifloxacin <=0.5 S * Oxacillin 0.5 S * Penicillin >8 R * Rifampin <=1 S * Tetracycline <=4 S * Trimethoprim/Sulfamethoxazole <=0.5/9.5 S Vancomycin 1 S Daptomycin <=0.5 S 12/25/24 19:25 Urine Culture - Final Urine,Clean Catch Klebsiella pneumoniae Urine Culture Final 12/28/24-1021 Organism 1 Klebsiella pneumoniae Hanson Count >100,000 CFU/ml DAY 2 Kleb pneum M.I.C. RX --------- ------ * Amikacin <=16 S * Amoxicillin/Clavulanate <=8/4 S * Ampicillin/Sulbactam <=8/4 S * Aztreonam <=4 S * Cefepime <=8 S * Ceftriaxone <=1 S * Cefuroxime <=4 S * Ciprofloxacin <=1 S * Gentamicin <=2 S * Imipenem <=1 S * Levofloxacin <=2 S * Nitrofurantoin >64 R * Tetracycline <=4 S * Trimethoprim/Sulfamethoxazole <=2/38 S * Piperacillin/Tazobactam <=16 S 12/28/24 05:53 Blood Culture - Preliminary Blood SPECIMEN COLLECTED 12/28/24 05:58 Blood Culture - Preliminary Blood SPECIMEN COLLECTED A&P Assessment and plan (1) Staphylococcus aureus bacteremia: (2) Chronic osteomyelitis: Plan 64-year-old lady with multiple comorbidities as listed above presenting to the hospital currently with having missed dialysis and complications resulting thereof. Also testing positive for RSV infection. Found to have Staphylococcus aureus on blood cultures taken on December 25, 2024. Patient has a history of multiple Staph aureus infections in the past including osteomyelitis. Source is not readily evident, however presumably may be related to her HD catheter. Patient does have a chronic wound over her right foot, has history of chronic osteomyelitis of the foot which has resulted in amputations in the past. She has been treated for osteomyelitis in the past. X-rays showing destruction of the metatarsals. The wound itself currently appears to be healing, has healthy granulation tissue at base. No surrounding signs of cellulitis. Less likely to be the source of her current Staph aureus bacteremia. Patient is currently on piperacillin/tazobactam and vancomycin, which may be continued while pending susceptibility testing to be available from the isolate. Recommend to remove HD catheter A temporary dialysis catheter should be placed while we wait for cultures to be negative for approximately 72 hours before placing a new tunneled catheter. Patient has also in the interim had a PICC line placed yesterday. The PICC line would need to be discontinued prior to her new HD catheter being placed. Would be ideal to give patient a line free 72-hour interval (except for temporary dialysis catheter) before placing a new tunneled catheter. Recommend to obtain echocardiogram to evaluate for underlying endocarditis. dec 27, 2024: Blood cx also + from 12/26 in addition to 12/25 for staph aureus, pending susceptibility please remove current tunneled catheter HD to continue via temp HD catheter until blood cx negative at least for 72 hrs will additionally need to remove newly placed PICC line on 12/26 once alternate access established. Pending MRI back TTE with poor windows, will likely need JOSE R if remains persistently + with blood cx Urine cx with GNR, patient known to be colonized with multiple GNR in the past , await sensitivity change zosyn to cefepime, continue vancomycin December 28 2024 Blood culture from December 25, 2024 identified with MSSA. Blood culture from December 26, 2024 positive for Staph aureus Blood culture taken this morning to assess for clearance. Urine culture from December 25, 2024 with Klebsiella pneumonia sensitive to cefuroxime, ceftriaxone. Discontinue cefepime and vancomycin Changed to cefazolin 1 g IV every 24 hours renally dosed for hemodialysis. Patient awaiting removal of tunneled HD catheter tomorrow. Additionally please remove recently placed PICC line and obtain alternate peripheral IV access. Once cultures are negative for 72 hours after removal of the HD catheter and current PICC line, new tunneled catheter may be placed. Patient had refused MRI of the back yesterday as she is overwhelmed by her and her 's illness She is currently very overwhelmed as a result of her 's illness who is doing poorly at a hospital in [place]. Defer JOSE R for now until patient is in a position to understand and provide an informed consent. Source likely is appearing to be HD catheter related. Foot continues to appear without any overt signs of infection. Patient will need at least 6 weeks of IV antibiotic treatment from clearance of cultures/removal of HD catheter PDMP PDMP Reviewed: Not Reviewed Attestations Medical Necessity Statement*: per admitting Coding Level of Care Code Acute Code for [facility] Diagnoses Staphylococcus aureus bacteremia R78.81; B95.61 Chronic osteomyelitis M86.60
--- NOTE | 2024-12-28 15:18 | P.PN_ITS ---
Subjective 2 Subjective: No acute events overnight. Has remained hemodynamically stable and afebrile. Seen on [facility] floor with multiple family members at bedside today. In better mood. Denies any nausea, vomiting, headache. Complaining of back pain. Vitals/I&O/Wt Last Vital Signs Temp 97.3 F L 12/28/24 13:52 Pulse 68 12/28/24 13:52 Resp 18 12/28/24 13:52 BP 143/53 12/28/24 13:52 Pulse Ox 96 12/28/24 11:48 O2 Del Method Nasal Cannula 12/28/24 11:48 O2 Flow Rate 3 12/28/24 11:48 12/28/24 12/28/24 12/28/24 06:59 14:59 22:59 Intake Total 254.633 / 1150.000 Balance 254.633 / -1350.000 Weight last 48 hrs Weight 121.109 kg Weight 117.1 kg Weight 116.038 kg Weight 116.038 kg Weight 116.038 kg Physical Exam 2 Narrative: General: No acute distress, AO x3, acute on chronic sick appearing, nasal cannula, hemodialysis catheter present in right hemithorax HEENT: PERRLA, pupils bilaterally equal and reactive Chest: Normal vesicular breath sounds, decreased air entry bilaterally lower zone, fine crackles in lower zone, equal good air entry bilaterally CVS: S1-S2 regular, no murmurs, no tachycardia, no gallops, no rubs Abdomen: Soft, nontender, no organomegaly, bowel sounds present Neuro: No focal deficits, no facial deformity, AO x3, power 5/5 in all limbs Skin: OTHER: Urinary Catheter Management: Tejada: Cath Placed During This Visit: yes Reason for Continuing Indwelling Catheter: Other Urinary Catheter Date of Insertion: 12/25/24 Urinary Catheter Time of Insertion: 15:45 Data 12/28/24 10:34 12/28/24 05:53 Micro: Microbiology 12/26/24 09:00 Blood Culture - Final Blood Staphylococcus aureus 12/26/24 09:04 Blood Culture - Final Blood Staphylococcus aureus 12/25/24 17:40 Blood Culture - Final Blood Staphylococcus aureus 12/25/24 17:48 Blood Culture - Final Blood Staphylococcus aureus 12/25/24 19:25 Urine Culture - Final Urine,Clean Catch Klebsiella pneumoniae 12/28/24 05:53 Blood Culture - Preliminary Blood SPECIMEN COLLECTED 12/28/24 05:58 Blood Culture - Preliminary Blood SPECIMEN COLLECTED A&P Assessment and plan (1) Staphylococcus aureus bacteremia: (2) Atrial fibrillation with RVR: (3) Acute hyperkalemia: (4) Metabolic acidosis: (5) Missed dialysis: (6) End stage renal disease on dialysis: (7) Uremia: (8) Acute and chronic respiratory failure with hypoxia: (9) Respiratory syncytial virus: (10) Diastolic heart failure: (11) HTN (hypertension): (12) TARA (obstructive sleep apnea): (13) Type 2 diabetes mellitus: (14) H/O staphylococcal septicemia: (15) Elevated troponin: (16) Poor intravenous access: Multiple attempts to central line overnight both femoral and left IJ. PICC line placed today morning before blood culture was reported. (17) Chronic osteomyelitis: (18) Infection of hemodialysis catheter: Plan 64-year-old female with past medical history of end-stage renal disease on home hemodialysis presents to the ER today because of worsening hypoxia, weakness due to missed home dialysis as caregiver is admitted to another hospital for respiratory failure found to have renal failure with metabolic acidosis, hyperkalemia and hypoxic respiratory failure due to RSV. Staphylococcus bacteremia: Persistent bacteremia. Repeat blood cultures positive. High concerns for infected hemodialysis catheter. Appreciate ID recommendations. Surgical plan for removal of HD catheter and placement of temporary dialysis catheter on 12/29. Continue heparin drip for now. Hold at midnight. Switch to IV cefazolin for given Staphylococcus identification and sensitivities. Stop vancomycin as per ID recommendations. Patient will most likely need 6 weeks of IV antibiotics after negative blood cultures. MRI thoracic spine. Patient is agreeable. IV Haldol around MRI. Appreciate urine culture. Klebsiella pneumonia. Sensitivities appreciated. DC [place] catheter. Likely will need a JOSE R. Will plan for JOSE R if persistent blood cultures positive after removal of HD catheter. Patient for now significantly overwhelmed given sickness of his and admission to ICU at outside hospital. Patient does have PICC line placed earlier in this admission. Most likely will have to remove. Will request for Peripheral IV placement if possible. Hyperkalemia/metabolic acidosis/uremia/renal failure/hyponatremia: In setting of end-stage renal disease on home hemodialysis. Most likely in setting of missed home dialysis for over 1 week. Continue dialysis as per nephrology. Strict and proper charting, daily weights. Fluid restriction to less than 1500 cc. Metabolic acidosis resolved. Ketones negative. Most likely in setting of acute renal failure. Hypervolemic hyponatremia most likely in setting of missed dialysis. Resolved. A-fib with RVR: Rate controlled. Continue with amiodarone 200 mg twice daily, home dose of metoprolol 25 mg twice daily Heparin drip as above. Acute on chronic hypoxic respiratory failure: In setting of RSV bronchitis: Chronically on 2 L. Resolving. Most likely combination of congestive heart failure and RSV bronchitis. Antibiotic as above.. Continue with Pulmicort twice daily, DuoNeb every 6 hour Switch to prednisone 40 mg daily for 5-day course. Type 2 diabetes mellitus: Ketones negative. Blood glucose improving. Takes Humalog 25 units twice daily along with lispro 22 units Premeal at home. Continue with Lantus 40 units twice daily, insulin sliding moderate dose protocol. A1c of 6.6. Elevated troponin: Most likely with concerns for demand ischemia. Negative cycle troponin. Echocardiogram shows poor echo windows with grossly normal LV functions. Hypertension: Goal blood pressure less than 140/90 mmHg. Takes hydralazine 50 mg 3 times daily, metoprolol 25 mg twice daily at home. For now we will continue with metoprolol. Will restart hydralazine as per blood pressures. IV hydralazine 10 mg every 4 hours as needed for systolic blood pressure more than 160 mmHg. Continue other chronic home medications including levothyroxine, pregabalin, Requip. Thrombocytopenia: Most likely in setting of RSV and sepsis. Continue to monitor. No sign of bleeding for now. Analgesia: Home dose of [place], Tylenol as needed Glycemic control: Lantus 40 units twice daily, insulin sliding scale at moderate dose protocol Nutrition: Renal diabetic dialysis diet CODE STATUS: Full code. Patient's son will be the DPOA. is also DPOA but he is intubated at another hospital for now. PUD prophylaxis: Protonix DVT prophylaxis: Eliquis will be sufficient for DVT prophylaxis. Discharge planning: Home with caregiver versus SNF depending on clinical picture going forward. Patient's is the primary caregiver and does home dialysis as admitted at another hospital. Can plan for discharge to home with home health and outpatient dialysis set up while comes back home. Patient requesting to be transferred to [facility] to be closer to her . We discussed transfer can be done but it would be asked for patient's request. Patient verbalizes understanding and wants to go ahead with transfer. As per transfer center from [facility] currently they have no MedSur beds and requesting to be called back in 24 hours. Tried again today for possible transfer to [facility]. Unfortunately no bed available. As per transfer center from [facility] no bed will be available for next 48 to 72 hours. Conveyed to patient and family. This documentation was created by [employer] financial aids officer software. Every effort was made to ensure accuracy of financial aids officer. Any obvious errors or omissions should be clarified with the author of the document. PDMP PDMP Reviewed: Last Reviewed 12/25/24 17:41 by Jovanni Ramires MD Attestations 2 Medical Necessity Statement*: Requires further hospitalization for management of MSSA bacteremia in setting of infected hemodialysis catheter, acute on chronic hypoxic respiratory failure in setting of RSV bronchitis Diagnoses Staphylococcus aureus bacteremia R78.81; B95.61 Atrial fibrillation with RVR I48.91 Acute hyperkalemia E87.5 Metabolic acidosis E87.20 Missed dialysis End stage renal disease on dialysis N18.6; Z99.2 Uremia N19 Acute and chronic respiratory failure with hypoxia J96.21 Respiratory syncytial virus B33.8 Diastolic heart failure I50.30 HTN (hypertension) I10 TARA (obstructive sleep apnea) G47.33 Type 2 diabetes mellitus E11.9 H/O staphylococcal septicemia Z86.19 Elevated troponin R79.89 Poor intravenous access Z78.9 Chronic osteomyelitis M86.60 Infection of hemodialysis catheter T82.7XXA
[2024-12-28] MEDS: morphine 4 mg/mL SDV 1 mL 2 MG IVP (15:33)
--- NOTE | 2024-12-28 16:09 | PC.HD ---
Patient signed off dialysis 4 minutes early due to severe back pain 08/29. UF goal was 2000; removed 183 (net).
[2024-12-28 16:38] LABS: Glucose Point of Care 155 mg/dL (70-110)
[2024-12-28 16:54] LABS: Reticulocyte % 2.9 % (0.5-2.0)
[2024-12-28 17:13] LABS: Partial Thromboplastin Time 89.8 SECONDS (23.9-36.7)
[2024-12-28] MEDS: haloperidol inj 5 mg/mL INJ 1 mL IVP (17:15)
[2024-12-28] MEDS: ceFAZolin 1,000 mg SDV 1000 MG IVP (19:37)
[2024-12-28] MEDS: pantoprazole 40 mg SDV IVP (19:38)
[2024-12-28 21:42] LABS: Glucose Point of Care 258 mg/dL (70-110)
[2024-12-28 23:37] LABS: Partial Thromboplastin Time 59.4 SECONDS (23.9-36.7)
--- NOTE | 2024-12-28 23:49 | PC.NURSE ---
At shift change report was given that the pt's heparin gtt had been titrated to 32 ml/hr d/t PTT at 1630. Titration was not charted in MAR for the PTT result. Charge nurse notified.
[2024-12-29] VITALS (11 sets, daily range): BP systolic 120–154; BP diastolic 44–90; PULSE 61–74; RESP 15–18; TEMP 36.3–36.9; O2SAT 91–99
[2024-12-29] MEDS: HYDROcodone-acetaminophen 7.5-325 mg Tablet 1 TAB PO ×4 (00:05→18:10)
[2024-12-29] MEDS: ipratropium-albuterol 3 mL Neb INHALATION ×4 (01:57→22:30)
[2024-12-29 05:31] LABS: Basophils % 0.1 %; Eosinophils % 0.3 %; Lymphocytes # 0.8 10^3/uL (0.8-4.8); Lymphocytes % 8.8 %; Mean Corpuscular HGB Conc 30.8 g/dL (30-55); Mean Corpuscular Hemoglobin 30.1 pg (27-33); Mean Corpuscular Volume 97.6 fl (85-98); Mean Platelet Volume 11.8 fL (7.4-10.4); Monocytes # 0.4 10^3/uL (0.2-0.9); Monocytes % 3.7 %; Neutrophils # 8.13 10^3/uL (1.8-7.7); Neutrophils % 84.8 %; Nucleated Red Blood Cells % 0 %; Platelet Count 83 10^3/cmm (157-399); Red Blood Count 2.46 10^6/uL (3.85-5.65); Red Cell Distribution Width 14.3 % (12.1-15.1); White Blood Count 9.58 10^3/uL (3.29-11.43)
[2024-12-29 05:47] LABS: Vancomycin Random 13.3 ug/mL (20.0-40.0)
[2024-12-29 05:49] LABS: Alanine Aminotransferase 69 U/L (0-33); Albumin Level 3.1 g/dL (3.5-5.2); Alkaline Phosphatase 252 U/L (35-105); Aspartate Amino Transferase 43 U/L (0-32); Blood Urea Nitrogen 54 mg/dL (8-23); Calcium 8.1 mg/dL (8.5-10.5); Carbon Dioxide 24 mmol/L (22-29); Chloride 101 mmol/L (98-107); Globulin 2.9 g/dL (1.3-4.6); Glomerular Filtration Rate 7.2 mL/min (90-130); Glucose 83 mg/dL (65-115); Osmolality Calculated 306 mOsm/kg (285-295); Sodium 141 mmol/L (136-145); Total Bilirubin 0.5 mg/dL (0.15-1.2)
[2024-12-29 06:06] LABS: Anion Gap 20.2 (5-19); Potassium 4.2 mmol/L (3.5-5.1)
[2024-12-29 06:53] LABS: Glucose Point of Care 81 mg/dL (70-110)
[2024-12-29] MEDS: budesonide 0.5 mg/2 mL Neb INHALATION ×2 (08:51→22:30)
[2024-12-29] MEDS: insulin glargine 100 units/1 mL 40 UNIT SUBCUT (10:04)
[2024-12-29] MEDS: calcitriol 0.25 mcg Capsule 0.5 MCG PO (10:05)
[2024-12-29] MEDS: metoprolol tartrate 25 mg Tablet PO ×2 (10:05→18:10)
[2024-12-29] MEDS: amiodarone 200 mg Tablet PO ×2 (10:05→18:10)
[2024-12-29] MEDS: ropinirole 0.25 mg Tablet PO ×3 (10:05→20:38)
[2024-12-29] MEDS: predniSONE 20 mg Tablet 40 MG PO (10:05)
[2024-12-29] MEDS: levothyroxine 112 mcg Tablet PO (10:05)
[2024-12-29] MEDS: docusate sodium 100 mg Capsule PO ×2 (10:05→18:10)
[2024-12-29] MEDS: pregabalin 25 mg Capsule PO (10:06)
[2024-12-29] MEDS: nystatin powder 15 gm Btl 1 APPLIC TOPICAL ×2 (10:06→18:11)
--- NOTE | 2024-12-29 10:14 | P.PN_ITS ---
Subjective 2 Subjective: no new complaints Medications: Reviewed: Yes Vitals/I&O/Wt Last Vital Signs Temp 98.0 F 12/29/24 07:27 Pulse 71 12/29/24 08:53 Resp 16 12/29/24 08:53 BP 120/44 12/29/24 07:27 Pulse Ox 95 12/29/24 08:53 O2 Del Method Nasal Cannula 12/29/24 08:53 O2 Flow Rate 2 12/29/24 08:53 12/28/24 12/29/24 12/29/24 22:59 06:59 14:59 Intake Total 716.467 / 716.467 162.667 / 879.134 Output Total 2332 / 2332 Balance -1615.533 / -1615.533 162.667 / -1452.866 Weight last 48 hrs Weight 122.6 kg Weight 121.109 kg Weight 117.1 kg Physical Exam 2 Narrative: in bed, sitting up HR tachy and irreg irreg a fib BP low normal heent- nc/at, eomi neck supple lungs dull bases. no crackles or rhonchi heart irreg irreg, + s1, s2 abd soft, nt, nd, + bs ext 1+ edema neuro- a,a, o x 2 + RT IJ PC seen and examined w/ nurse using A/VV equipment Urinary Catheter Management: Tejada: Cath Placed During This Visit: yes, but has since been removed by the nurse Reason for Continuing Indwelling Catheter: Other Urinary Catheter Date of Insertion: 12/25/24 Urinary Catheter Time of Insertion: 15:45 Date Urinary Catheter Removed: 12/28/24 Time Urinary Catheter Discontinued: 20:57 Data 12/29/24 04:36 12/29/24 04:36 Micro: Microbiology 12/28/24 05:53 Blood Culture - Preliminary Blood NEGATIVE TO DATE 12/28/24 05:58 Blood Culture - Preliminary Blood NEGATIVE TO DATE 12/26/24 09:00 Blood Culture - Final Blood Staphylococcus aureus 12/26/24 09:04 Blood Culture - Final Blood Staphylococcus aureus 12/25/24 17:40 Blood Culture - Final Blood Staphylococcus aureus 12/25/24 17:48 Blood Culture - Final Blood Staphylococcus aureus 12/25/24 19:25 Urine Culture - Final Urine,Clean Catch Klebsiella pneumoniae A&P Assessment and plan (1) End stage renal disease on dialysis: 64 year old female with past medical history of end-stage renal disease on home hemodialysis, type 2 diabetes mellitus, staff epidermidis bacteremia, hypertension, diastolic heart failure chronically on anticoagulation with Eliquis, hypothyroidism was brought to the ER on dec 25, 2024 by her son from home because of worsening hypoxia, generalized weakness, difficulty breathing and poor mentation. 1. a fib w/ RVR as per medicine/ cardiology 2. eSRD- pt missed her HHD, as her is no longer able to perform her home hemodialysis, s/p hD yesterday 3. anemia- check iron studies and give epo 4. a fib- on amiodarone. regarding a/c- as she is ESRD on HD. if on eliquis just for a fib- please decrease dose to 2.5 mg po bid 5.Staph aureus bacteremia seen and examined w/ RN- using A/V equipment pt consents to telehealth and to dialysis Plan improving hyperkalemia and confusion PDMP PDMP Reviewed: Not Reviewed Attestations 2 Medical Necessity Statement*: per lucie Coding Level of Care Code Acute Code for Chg Fwd Diagnoses End stage renal disease on dialysis N18.6; Z99.2
[2024-12-29 11:18] LABS: Glucose Point of Care 66 mg/dL (70-110)
[2024-12-29 12:11] LABS: Glucose Point of Care 83 mg/dL (70-110)
--- NOTE | 2024-12-29 14:39 | PC.NURSE ---
Dr. Ramires gave verbal orders to resume heparin gtt at 32 mL/hr that was paused last night at midnight. Drip resumed and reasoning explained to pt. Questions answered and pt stated she was satisfied with decision.
--- NOTE | 2024-12-29 15:01 | P.PN_ITS ---
Subjective 2 Subjective: No acute vents overnight. Patient has remained hemodynamically stable and afebrile. Seen multiple times today. Later seen with caregiver at bedside. Patient underwent removal of permanent dialysis catheter and placement of temporary dialysis catheter today. Tolerated the procedure well. Vitals/I&O/Wt Last Vital Signs Temp 98.4 F 12/29/24 11:26 Pulse 74 12/29/24 13:59 Resp 16 12/29/24 13:59 BP 127/49 12/29/24 11:26 Pulse Ox 97 12/29/24 13:59 O2 Del Method Nasal Cannula 12/29/24 13:59 O2 Flow Rate 2 12/29/24 13:59 12/29/24 12/29/24 12/29/24 06:59 14:59 22:59 Intake Total 162.667 / 879.134 0 / 0 Balance 162.667 / -1452.866 0 / 0 Weight last 48 hrs Weight 122.6 kg Weight 121.109 kg Physical Exam 2 Narrative: General: No acute distress, AO x3, acute on chronic sick appearing, nasal cannula, hemodialysis catheter present in right hemithorax HEENT: PERRLA, pupils bilaterally equal and reactive Chest: Normal vesicular breath sounds, decreased air entry bilaterally lower zone, fine crackles in lower zone, equal good air entry bilaterally CVS: S1-S2 regular, no murmurs, no tachycardia, no gallops, no rubs Abdomen: Soft, nontender, no organomegaly, bowel sounds present Neuro: No focal deficits, no facial deformity, AO x3, power 5/5 in all limbs Skin: OTHER: Urinary Catheter Management: Tejada: Cath Placed During This Visit: yes, but has since been removed by the nurse Reason for Continuing Indwelling Catheter: Other Urinary Catheter Date of Insertion: 12/25/24 Urinary Catheter Time of Insertion: 15:45 Date Urinary Catheter Removed: 12/28/24 Time Urinary Catheter Discontinued: 20:57 Data 12/29/24 04:36 12/29/24 04:36 Micro: Microbiology 12/28/24 09:05 Gram Stain - Final Sputum - Expectorated Sputum Sputum Culture - Preliminary 12/28/24 05:53 Blood Culture - Preliminary Blood NEGATIVE TO DATE 12/28/24 05:58 Blood Culture - Preliminary Blood NEGATIVE TO DATE 12/26/24 09:00 Blood Culture - Final Blood Staphylococcus aureus 12/26/24 09:04 Blood Culture - Final Blood Staphylococcus aureus 12/25/24 17:40 Blood Culture - Final Blood Staphylococcus aureus 12/25/24 17:48 Blood Culture - Final Blood Staphylococcus aureus 12/25/24 19:25 Urine Culture - Final Urine,Clean Catch Klebsiella pneumoniae A&P Assessment and plan (1) Staphylococcus aureus bacteremia: (2) Atrial fibrillation with RVR: (3) Acute hyperkalemia: (4) Metabolic acidosis: (5) Missed dialysis: (6) End stage renal disease on dialysis: (7) Uremia: (8) Acute and chronic respiratory failure with hypoxia: (9) Respiratory syncytial virus: (10) Diastolic heart failure: (11) HTN (hypertension): (12) TARA (obstructive sleep apnea): (13) Type 2 diabetes mellitus: (14) H/O staphylococcal septicemia: (15) Elevated troponin: (16) Poor intravenous access: Multiple attempts to central line overnight both femoral and left IJ. PICC line placed today morning before blood culture was reported. (17) Chronic osteomyelitis: (18) Infection of hemodialysis catheter: Plan 64-year-old female with past medical history of end-stage renal disease on home hemodialysis presents to the ER today because of worsening hypoxia, weakness due to missed home dialysis as caregiver is admitted to another hospital for respiratory failure found to have renal failure with metabolic acidosis, hyperkalemia and hypoxic respiratory failure due to RSV. Staphylococcus bacteremia: Persistent bacteremia. Repeat blood culture from 12/26 positive. Repeat blood cultures today as hemodialysis catheter has been removed today. Appreciate ID recommendations. Permanent dialysis catheter removed on 12/29. Thank you dialysis catheter placed on 12/29. Continue with heparin drip for now as patient will probably need placement of permacath back after blood cultures are negative. Appreciate ID recommendations. Continue with IV cefazolin. Patient will most likely need 6 weeks of IV antibiotics after negative blood cultures. Appreciate MRI thoracic spine. Appreciate urine culture. Klebsiella pneumonia. Sensitivities appreciated. Te[place]ada catheter removed 12/28. Likely will need a JOSE R. Will plan for JOSE R if persistent blood cultures positive after removal of HD catheter. Patient for now significantly overwhelmed given sickness of his and admission to ICU at outside hospital. Patient does have PICC line placed earlier in this admission. Most likely will have to remove. Will request for Peripheral IV placement if possible. Hyperkalemia/metabolic acidosis/uremia/renal failure/hyponatremia: In setting of end-stage renal disease on home hemodialysis. Most likely in setting of missed home dialysis for over 1 week. Continue dialysis as per nephrology. Strict and proper charting, daily weights. Fluid restriction to less than 1500 cc. Metabolic acidosis resolved. Ketones negative. Most likely in setting of acute renal failure. Hypervolemic hyponatremia most likely in setting of missed dialysis. Resolved. A-fib with RVR: Rate controlled. Continue with amiodarone 200 mg twice daily, home dose of metoprolol 25 mg twice daily Heparin drip as above. Acute on chronic hypoxic respiratory failure: In setting of RSV bronchitis: Chronically on 2 L. Resolving. Most likely combination of congestive heart failure and RSV bronchitis. Antibiotic as above.. Continue with Pulmicort twice daily, DuoNeb every 6 hour Switch to prednisone 40 mg daily for 5-day course. Type 2 diabetes mellitus: Ketones negative. Blood glucose improving. Takes Humalog 25 units twice daily along with lispro 22 units Premeal at home. Continue with Lantus 40 units twice daily, insulin sliding moderate dose protocol. A1c of 6.6. Elevated troponin: Most likely with concerns for demand ischemia. Negative cycle troponin. Echocardiogram shows poor echo windows with grossly normal LV functions. Hypertension: Goal blood pressure less than 140/90 mmHg. Takes hydralazine 50 mg 3 times daily, metoprolol 25 mg twice daily at home. For now we will continue with metoprolol. Will restart hydralazine as per blood pressures. IV hydralazine 10 mg every 4 hours as needed for systolic blood pressure more than 160 mmHg. Continue other chronic home medications including levothyroxine, pregabalin, Requip. Thrombocytopenia: Most likely in setting of RSV and sepsis. Continue to monitor. No sign of bleeding for now. Analgesia: Home dose of [place], Tylenol as needed Glycemic control: Lantus 40 units twice daily, insulin sliding scale at moderate dose protocol Nutrition: Renal diabetic dialysis diet CODE STATUS: Full code. Today patient states she does not want her son to be the DPOA. She would want Ms. Rodriguez who is also a nurse to be the DPOA. Ms. Rodriguez is at bedside and is agreeable. Will request her to give the number to the nursing staff so that it can be added in the chart. Will request case management for DPOA paperwork. Patient is agreeable. PUD prophylaxis: Protonix DVT prophylaxis: Eliquis will be sufficient for DVT prophylaxis. Discharge planning: Home with caregiver versus SNF depending on clinical picture going forward. Patient's is the primary caregiver and does home dialysis as admitted at another hospital. Can plan for discharge to home with home health and outpatient dialysis set up while comes back home. Patient requesting to be transferred to [facility] to be closer to her . We discussed transfer can be done but it would be asked for patient's request. Patient verbalizes understanding and wants to go ahead with transfer. As per transfer center from [facility] currently they have no MedSurg beds and requesting to be called back in 24 hours. Tried again today for possible transfer to [facility]. Unfortunately no bed available. As per transfer center from [facility] no bed will be available for next 48 to 72 hours. Conveyed to patient and family. This documentation was created by [employer] drafter directional survey software. Every effort was made to ensure accuracy of drafter directional survey. Any obvious errors or omissions should be clarified with the author of the document. PDMP PDMP Reviewed: Last Reviewed 12/25/24 17:41 by Jovanni Ramires MD Attestations 2 Medical Necessity Statement*: Requires further hospitalization for management of Staphylococcus bacteremia in setting of infected HD catheter while negative blood cultures are awaited, outpatient antibiotics are set up, outpatient hemodialysis is set up Diagnoses Staphylococcus aureus bacteremia R78.81; B95.61 Atrial fibrillation with RVR I48.91 Acute hyperkalemia E87.5 Metabolic acidosis E87.20 Missed dialysis End stage renal disease on dialysis N18.6; Z99.2 Uremia N19 Acute and chronic respiratory failure with hypoxia J96.21 Respiratory syncytial virus B33.8 Diastolic heart failure I50.30 HTN (hypertension) I10 TARA (obstructive sleep apnea) G47.33 Type 2 diabetes mellitus E11.9 H/O staphylococcal septicemia Z86.19 Elevated troponin R79.89 Poor intravenous access Z78.9 Chronic osteomyelitis M86.60 Infection of hemodialysis catheter T82.7XXA
[2024-12-29 17:35] LABS: Glucose Point of Care 139 mg/dL (70-110)
--- NOTE | 2024-12-29 17:49 | P.PN_ITS ---
Subjective 2 Subjective: Infectious disease progress note Status post removal of tunneled HD cath today with placement of right temporary HD catheter. Repeat blood culture ordered after removal of HD catheter today. Medications: Reviewed: Yes Vitals/I&O/Wt Last Vital Signs Temp 98.0 F 12/29/24 16:00 Pulse 68 12/29/24 16:00 Resp 17 12/29/24 16:00 BP 132/57 12/29/24 16:00 Pulse Ox 96 12/29/24 16:00 O2 Del Method Nasal Cannula 12/29/24 16:00 O2 Flow Rate 2 12/29/24 16:00 12/29/24 12/29/24 12/29/24 06:59 14:59 22:59 Intake Total 162.667 / 879.134 0 / 0 Balance 162.667 / -1452.866 0 / 0 Weight last 48 hrs Weight 122.6 kg Weight 121.109 kg Physical Exam 2 Narrative: General: No acute distress, AO x3 HEENT: PERRLA, pupils bilaterally equal and reactive, pallors not present Chest: Normal vesicular breath sounds, no added sounds, equal good air entry bilaterally CVS: S1-S2 regular, no murmurs, no tachycardia, no gallops, no rubs Abdomen: Soft, nontender, no organomegaly, bowel sounds present Neuro: No focal deficits, no facial deformity, AO x3, power 5/5 in all limbs Urinary Catheter Management: Tejada: Cath Placed During This Visit: yes, but has since been removed by the nurse Reason for Continuing Indwelling Catheter: Other Urinary Catheter Date of Insertion: 12/25/24 Urinary Catheter Time of Insertion: 15:45 Date Urinary Catheter Removed: 12/28/24 Time Urinary Catheter Discontinued: 20:57 Data 12/29/24 04:36 12/29/24 04:36 Micro: Microbiology 12/28/24 09:05 Gram Stain - Final Sputum - Expectorated Sputum Sputum Culture - Preliminary 12/28/24 05:53 Blood Culture - Preliminary Blood NEGATIVE TO DATE 12/28/24 05:58 Blood Culture - Preliminary Blood NEGATIVE TO DATE 12/26/24 09:00 Blood Culture - Final Blood Staphylococcus aureus 12/26/24 09:04 Blood Culture - Final Blood Staphylococcus aureus 12/25/24 17:40 Blood Culture - Final Blood Staphylococcus aureus A&P Assessment and plan (1) Staphylococcus aureus bacteremia: (2) Chronic osteomyelitis: Plan 64-year-old lady with multiple comorbidities as listed above presenting to the hospital currently with having missed dialysis and complications resulting thereof. Also testing positive for RSV infection. Found to have Staphylococcus aureus on blood cultures taken on December 25, 2024. Patient has a history of multiple Staph aureus infections in the past including osteomyelitis. Source is not readily evident, however presumably may be related to her HD catheter. Patient does have a chronic wound over her right foot, has history of chronic osteomyelitis of the foot which has resulted in amputations in the past. She has been treated for osteomyelitis in the past. X-rays showing destruction of the metatarsals. The wound itself currently appears to be healing, has healthy granulation tissue at base. No surrounding signs of cellulitis. Less likely to be the source of her current Staph aureus bacteremia. Patient is currently on piperacillin/tazobactam and vancomycin, which may be continued while pending susceptibility testing to be available from the isolate. Recommend to remove HD catheter A temporary dialysis catheter should be placed while we wait for cultures to be negative for approximately 72 hours before placing a new tunneled catheter. Patient has also in the interim had a PICC line placed yesterday. The PICC line would need to be discontinued prior to her new HD catheter being placed. Would be ideal to give patient a line free 72-hour interval (except for temporary dialysis catheter) before placing a new tunneled catheter. Recommend to obtain echocardiogram to evaluate for underlying endocarditis. dec 27, 2024: Blood cx also + from 12/26 in addition to 12/25 for staph aureus, pending susceptibility please remove current tunneled catheter HD to continue via temp HD catheter until blood cx negative at least for 72 hrs will additionally need to remove newly placed PICC line on 12/26 once alternate access established. Pending MRI back TTE with poor windows, will likely need JOSE R if remains persistently + with blood cx Urine cx with GNR, patient known to be colonized with multiple GNR in the past , await sensitivity change zosyn to cefepime, continue vancomycin December 28 2024 Blood culture from December 25, 2024 identified with MSSA. Blood culture from December 26, 2024 positive for Staph aureus Blood culture taken this morning to assess for clearance. Urine culture from December 25, 2024 with Klebsiella pneumonia sensitive to cefuroxime, ceftriaxone. Discontinue cefepime and vancomycin Changed to cefazolin 1 g IV every 24 hours renally dosed for hemodialysis. Patient awaiting removal of tunneled HD catheter tomorrow. Additionally please remove recently placed PICC line and obtain alternate peripheral IV access. Once cultures are negative for 72 hours after removal of the HD catheter and current PICC line, new tunneled catheter may be placed. Patient had refused MRI of the back yesterday as she is overwhelmed by her and her 's illness She is currently very overwhelmed as a result of her 's illness who is doing poorly at a hospital in [place]. Defer JOSE R for now until patient is in a position to understand and provide an informed consent. Source likely is appearing to be HD catheter related. Foot continues to appear without any overt signs of infection. Patient will need at least 6 weeks of IV antibiotic treatment from clearance of cultures/removal of HD catheter December 29, 2024 Blood culture from December 25 in December 26 with MSSA Blood culture from December 28 pending Status post removal of tunneled HD catheter from right side today. Blood cultures ordered after removal of HD catheter. Continue cefazolin 1 g IV every 24 hours renally dosed. Please remove PICC line. If peripheral access is not able to be obtained, may change to temporary midline to maintain heparin infusion with goal to remove prior to discharge. Once culture negative for 72 hours, may obtain a new tunneled HD catheter. Eventually planning discharge with 6 weeks of IV cefazolin 2 g 3 times a week after dialysis. MRI of the thoracic spine completed, no signs of osteomyelitis discitis. PDMP PDMP Reviewed: Not Reviewed Attestations 2 Medical Necessity Statement*: per admitting Coding Level of Care Code Acute Code for [facility] Fwd Diagnoses Staphylococcus aureus bacteremia R78.81; B95.61 Chronic osteomyelitis M86.60
[2024-12-29] MEDS: pantoprazole 40 mg SDV IVP (18:09)
[2024-12-29] MEDS: ceFAZolin 1,000 mg SDV 1000 MG IVP (18:10)
[2024-12-29 20:17] LABS: Partial Thromboplastin Time 71.3 SECONDS (23.9-36.7)
[2024-12-29] MEDS: heparin drip 25,000 UNIT/500 ML PREMIX 32 UNIT IV (20:27)
[2024-12-29 20:36] LABS: Glucose Point of Care 295 mg/dL (70-110)
[2024-12-29] MEDS: insulin lispro 100 unit/1 mL SUBCUT (21:50)
[2024-12-30] VITALS (11 sets, daily range): BP systolic 125–165; BP diastolic 48–72; PULSE 62–82; RESP 16–18; TEMP 36.3–37; O2SAT 95–100
[2024-12-30] MEDS: HYDROcodone-acetaminophen 7.5-325 mg Tablet 1 TAB PO ×4 (00:33→17:48)
[2024-12-30 02:29] LABS: Basophils % 0.2 %; Eosinophils % 0.2 %; Hematocrit 26.4 % (36-47); Lymphocytes # 1.8 10^3/uL (0.8-4.8); Lymphocytes % 15.2 %; Mean Corpuscular HGB Conc 30.3 g/dL (30-55); Mean Corpuscular Hemoglobin 28.6 pg (27-33); Mean Corpuscular Volume 94.3 fl (85-98); Monocytes # 0.8 10^3/uL (0.2-0.9); Monocytes % 6.4 %; Neutrophils # 8.71 10^3/uL (1.8-7.7); Neutrophils % 73.7 %; Nucleated Red Blood Cells % 0 %; Platelet Count 93 10^3/cmm (157-399); Red Cell Distribution Width 14.3 % (12.1-15.1); White Blood Count 11.81 10^3/uL (3.29-11.43)
[2024-12-30 02:48] LABS: Partial Thromboplastin Time 100.5 SECONDS (23.9-36.7)
[2024-12-30 02:59] LABS: Alanine Aminotransferase 53 U/L (0-33); Albumin Level 3.2 g/dL (3.5-5.2); Alkaline Phosphatase 314 U/L (35-105); Anion Gap 23.8 (5-19); Aspartate Amino Transferase 35 U/L (0-32); Blood Urea Nitrogen 73 mg/dL (8-23); Calcium 8.4 mg/dL (8.5-10.5); Carbon Dioxide 22 mmol/L (22-29); Chloride 95 mmol/L (98-107); Creatinine Clr Calc Pharmacy 9.1684; Glomerular Filtration Rate 5.2 mL/min (90-130); Glucose 189 mg/dL (65-115); Osmolality Calculated 309 mOsm/kg (285-295); Potassium 4.8 mmol/L (3.5-5.1); Sodium 136 mmol/L (136-145); Total Bilirubin 0.4 mg/dL (0.15-1.2); Total Protein 7.2 g/dL (6.6-8.7)
[2024-12-30] MEDS: ipratropium-albuterol 3 mL Neb INHALATION ×4 (03:17→20:23)
[2024-12-30 06:47] LABS: Glucose Point of Care 212 mg/dL (70-110)
--- NOTE | 2024-12-30 07:22 | PM.PN ---
Subjective Subjective: seen and examined. SOB, cough. rt leg lesion. denies n/v/f/c/bedolla/d/cp Medications: Reviewed: Yes Medication Review Details: Current Medications Acetaminophen (Acetaminophen 325 Mg Tablet) 650 mg PO Q6H PRN PRN Reason: Mild/Mod Pain Or Temp >/= 101 Hydrocodone Bitart/Acetaminophen (Hydrocodone-Acetaminophen 7.5-325 Mg Tablet) 1 tab PO Q6H NELIA Last Admin: 12/30/24 05:38 Dose: 1 tab Albuterol/Ipratropium (Ipratropium-Albuterol 3 Ml Neb) 3 ml INHALATION Q6H.RESP NELIA Last Admin: 12/30/24 03:17 Dose: 3 ml Alprazolam (Alprazolam 0.5 Mg Tablet) 0.5 mg PO BID PRN PRN Reason: ANXIETY Last Admin: 12/26/24 18:41 Dose: 0.5 mg Amiodarone HCl (Amiodarone 200 Mg Tablet) 200 mg PO BID NELIA Last Admin: 12/29/24 18:10 Dose: 200 mg Budesonide (Budesonide 0.5 Mg/2 Ml Neb) 0.5 mg INHALATION BID.RESPIRATORY NELIA Last Admin: 12/29/24 22:30 Dose: 0.5 mg Calcitriol (Calcitriol 0.25 Mcg Capsule) 0.5 mcg PO DAILY NELIA Last Admin: 12/29/24 10:05 Dose: 0.5 mcg Cefazolin Sodium (Cefazolin 1,000 Mg Sdv) 1,000 mg IVP Q24H NELIA; Protocol Last Admin: 12/29/24 18:10 Dose: 1,000 mg Docusate Sodium (Docusate Sodium 100 Mg Capsule) 100 mg PO BID NELIA Last Admin: 12/29/24 18:10 Dose: 100 mg Glucagon (Glucagon 1 Mg/Ml Kit 1 Ml) 1 mg IM ONCE PRN; Protocol PRN Reason: Adult Acute Hypoglycemia Nursing Prot. Heparin Sodium (Porcine) (Heparin 5,000 Unit/Ml Inj 1 Ml) 0 unit IVP PRN PRN; Protocol PRN Reason: Heparin Weight Based Protocol -Subsequent Bolus Last Admin: 12/27/24 22:25 Dose: 6,000 unit Hydralazine HCl (Hydralazine 20 Mg/Ml Inj 1 Ml) 10 mg IVP Q4H PRN PRN Reason: SBP More than 160 mmhg Dextrose (D5w) 500 mls @ 0 mls/hr IV ONCE PRN; Protocol PRN Reason: Adult Acute Hypoglycemia Prot Dextrose (D10w) 125 mls @ 750 mls/hr IV PRN PRN; Protocol PRN Reason: Adult Acute Hypoglycemia Nursing Protocol Dextrose (D10w) 250 mls @ 1,000 mls/hr IV PRN PRN; Protocol PRN Reason: Adult Acute Hypoglycemia Nursing Protocol Heparin Sodium/Sodium Chloride (Heparin Drip) 25,000 unit in 500 mls @ 0 mls/hr IV CONT NELIA; Protocol Last Titration: 12/30/24 02:56 Dose: 10.67 unit/kg/hr, 25 mls/hr Sodium Chloride (Sodium Chloride 0.9%) 1,000 mls @ 0 mls/hr IV .Q0M PRN PRN Reason: hypotension or symptomatic Albumin Human (Albumin) 12.5 gm in 50 mls @ 60 mls/hr IV PRN PRN PRN Reason: Hypotension and/or symptomatic Sodium Chloride (Sodium Chloride 0.9%) 1,000 mls @ 0 mls/hr IV .Q0M PRN PRN Reason: hypotension or symptomatic Albumin Human (Albumin) 12.5 gm in 50 mls @ 60 mls/hr IV PRN PRN PRN Reason: Hypotension and/or symptomatic Insulin Glargine (Insulin Glargine 100 Units/1 Ml) 40 unit SUBCUT BID [facility] Last Admin: 12/29/24 18:30 Dose: Not Given Insulin Human Lispro (Insulin Lispro 100 Unit/1 Ml) 0 unit SUBCUT WM&BEDTIME [facility]; Protocol Last Admin: 12/29/24 21:50 Dose: 10 unit Lactulose (Lactulose Oral Liq 20 Gm/30 Ml Udc) 10 gm PO DAILY PRN; Protocol PRN Reason: Constipation (see protocol) Levothyroxine Sodium (Levothyroxine 112 Mcg Tablet) 112 mcg PO DAILY [facility] Last Admin: 12/29/24 10:05 Dose: 112 mcg Magnesium Hydroxide (Magnesium Hydroxide 30 Ml Udc) 30 ml PO DAILY PRN; Protocol PRN Reason: Constipation (see protocol) Metoprolol Tartrate (Metoprolol Tartrate 25 Mg Tablet) 25 mg PO BID [facility] Last Admin: 12/29/24 18:10 Dose: 25 mg Morphine Sulfate (Morphine 4 Mg/Ml Sdv 1 Ml) 2 mg IVP Q4H PRN PRN Reason: SEVERE PAIN Last Admin: 12/28/24 15:33 Dose: 2 mg Nystatin (Nystatin Powder 15 Gm Btl) 1 applic TOPICAL BID [facility] Last Admin: 12/29/24 18:11 Dose: 1 applic Ondansetron HCl (Ondansetron 2 Mg/Ml Sdv 2 Ml) 4 mg IVP Q6H PRN PRN Reason: vomiting, or N/V if npo Last Admin: 12/27/24 07:58 Dose: 4 mg Pantoprazole Sodium (Pantoprazole 40 Mg Sdv) 40 mg IVP Q24H [facility] Last Admin: 12/29/24 18:09 Dose: 40 mg Prednisone (Prednisone 20 Mg Tablet) 40 mg PO DAILY [facility] Last Admin: 12/29/24 10:05 Dose: 40 mg Pregabalin (Pregabalin 25 Mg Capsule) 25 mg PO DAILY [facility] Last Admin: 12/29/24 10:06 Dose: 25 mg Ropinirole HCl (Ropinirole 0.25 Mg Tablet) 0.25 mg PO TID [facility] Last Admin: 12/29/24 20:38 Dose: 0.25 mg Vitals/I&O/Wt Last Vital Signs Temp 97.4 F L 12/30/24 03:42 Pulse 63 12/30/24 03:42 Resp 17 12/30/24 03:42 BP 144/66 12/30/24 03:42 Pulse Ox 95 12/30/24 03:42 O2 Del Method Nasal Cannula 12/30/24 03:42 O2 Flow Rate 2 12/30/24 03:42 12/29/24 12/30/24 12/30/24 22:59 06:59 14:59 Intake Total 120.866 / 120.866 687.467 / 808.333 Balance 120.866 / 120.866 687.467 / 808.333 Weight last 48 hrs Weight 116.619 kg Weight 122.6 kg Physical Exam Narrative: Obese lady in bed vital signs noted using nasal cannula oxygen. HEENT normocephalic/atraumatic. Neck is supple lungs have rhonchi dullness. Heart regular question overall per nurse Abdomen is soft positive bowel sounds. Extremities no significant edema she does have bandages on her feet. in hospitalists note can see leg lesion Neuro awake alert oriented x 3 and no asterixis. +temp dialysis catheter Urinary Catheter Management: Tejada: Cath Placed During This Visit: yes, but has since been removed by the nurse Reason for Continuing Indwelling Catheter: Other Urinary Catheter Date of Insertion: 12/25/24 Urinary Catheter Time of Insertion: 15:45 Date Urinary Catheter Removed: 12/28/24 Time Urinary Catheter Discontinued: 20:57 Data 12/30/24 02:11 12/30/24 02:11 Micro: Microbiology 12/29/24 19:40 Blood Culture - Preliminary Blood SPECIMEN COLLECTED 12/29/24 19:46 Blood Culture - Preliminary Blood SPECIMEN COLLECTED 12/28/24 09:05 Gram Stain - Final Sputum - Expectorated Sputum Sputum Culture - Preliminary 12/28/24 05:53 Blood Culture - Preliminary Blood NEGATIVE TO DATE 12/28/24 05:58 Blood Culture - Preliminary Blood NEGATIVE TO DATE A&P Assessment and plan (1) End stage renal disease on dialysis: 64 year old female with past medical history of end-stage renal disease on home hemodialysis, type 2 diabetes mellitus, staff epidermidis bacteremia, hypertension, diastolic heart failure chronically on anticoagulation with Eliquis, hypothyroidism was brought to the ER on dec 25, 2024 by her son from home because of worsening hypoxia, generalized weakness, difficulty breathing and poor mentation. 1. a fib w/ RVR as per medicine/ cardiology 2. eSRD- pt missed her HHD, as her is no longer able to perform her home hemodialysis -repeat HD today via temp dialysis catheter -phos binder for phos of 6 3. anemia- ferritin >1000, tsat 75%- NO MORE IRON. give epo -thrombocytopenia is improving 4. a fib- on amiodarone. regarding a/c- as she is ESRD on HD. if on eliquis just for a fib- please decrease dose to 2.5 mg po bid 5.Staph aureus bacteremia - s/p removal of Permacath- she has a rt ij temp HD catheter -appreciate Dr Lu of ID- Patient is currently on cefazolin 1 gm iv daily. - Eventually planning discharge with 6 weeks of IV cefazolin 2 g 3 times a week after dialysis. MRI of the thoracic spine completed, no signs of osteomyelitis discitis. -LAST + BLOOD CULTURES FROM 12/26/24. new Permacath when cultures are 72 hrs neg -can be tomorrow or monday, if cultures rmein negative 5b. vhrvk pth and tsh 6. RSV bronchitis 7. DM care per medicine 8. HTN- lower weight on HD as tolerated seen and examined w/ RN- using A/V equipment pt consents to telehealth and to dialysis Plan MSSA bacteremia- hd today. aabx, epo PDMP PDMP Reviewed: Not Reviewed Attestations Medical Necessity Statement*: per medicine Time Spent in Patient Care: 16 - 35 minutes (>than 50% of time spent in counselling and/or direct pt care on unit). Coding Level of Care Code Acute Code for [facility] Fwd Diagnoses End stage renal disease on dialysis N18.6; Z99.2
[2024-12-30] MEDS: budesonide 0.5 mg/2 mL Neb INHALATION ×2 (07:57→20:23)
--- NOTE | 2024-12-30 08:15 | P.PN_ITS ---
Subjective 2 Subjective: Infectious disease recommended changing PICC line to midline, Repeat cultures negative, patient is afebrile Patient endorsing any new complaints Right groin temporary dialysis catheter in place Vitals/I&O/Wt Last Vital Signs Temp 97.4 F L 12/30/24 03:42 Pulse 63 12/30/24 03:42 Resp 17 12/30/24 03:42 BP 144/66 12/30/24 03:42 Pulse Ox 95 12/30/24 03:42 O2 Del Method Nasal Cannula 12/30/24 03:42 O2 Flow Rate 2 12/30/24 03:42 12/29/24 12/30/24 12/30/24 22:59 06:59 14:59 Intake Total 120.866 / 120.866 687.467 / 808.333 Balance 120.866 / 120.866 687.467 / 808.333 Weight last 48 hrs Weight 116.619 kg Weight 122.6 kg Physical Exam 2 Narrative: Temperature dialysis catheter right groin in place Left arm PICC line in place GCS 15 No active sign of focal deficit No sign of fluid overload S1-S2 Pleasant Hemodynamic stable Currently patient is on 2 L nasal cannula Nondistended nontender abdomen Pleasant cooperative AO x 4 Urinary Catheter Management: Tejada: Cath Placed During This Visit: yes, but has since been removed by the nurse Reason for Continuing Indwelling Catheter: Other Urinary Catheter Date of Insertion: 12/25/24 Urinary Catheter Time of Insertion: 15:45 Date Urinary Catheter Removed: 12/28/24 Time Urinary Catheter Discontinued: 20:57 Data 12/30/24 02:11 12/30/24 02:11 Micro: Microbiology 12/29/24 19:40 Blood Culture - Preliminary Blood SPECIMEN COLLECTED 12/29/24 19:46 Blood Culture - Preliminary Blood SPECIMEN COLLECTED 12/28/24 09:05 Gram Stain - Final Sputum - Expectorated Sputum Sputum Culture - Preliminary 12/28/24 05:53 Blood Culture - Preliminary Blood NEGATIVE TO DATE 12/28/24 05:58 Blood Culture - Preliminary Blood NEGATIVE TO DATE A&P Assessment and plan (1) Staphylococcus aureus bacteremia: (2) Atrial fibrillation with RVR: (3) Acute hyperkalemia: (4) Metabolic acidosis: (5) Missed dialysis: (6) End stage renal disease on dialysis: (7) Uremia: (8) Acute and chronic respiratory failure with hypoxia: (9) Respiratory syncytial virus: (10) Diastolic heart failure: (11) HTN (hypertension): (12) TARA (obstructive sleep apnea): (13) Type 2 diabetes mellitus: (14) H/O staphylococcal septicemia: (15) Elevated troponin: (16) Poor intravenous access: (17) Chronic osteomyelitis: (18) Infection of hemodialysis catheter: Plan 64-year-old female with past medical history of end-stage renal disease on home hemodialysis presents to the ER because of worsening hypoxia, weakness due to missed home dialysis as caregiver is admitted to another hospital for respiratory failure found to have renal failure with metabolic acidosis, hyperkalemia and hypoxic respiratory failure due to RSV. Staphylococcus bacteremia: Persistent bacteremia. Continue antibiotics Afebrile, repeat cultures with pending report If repeat cultures turn positive then patient will need transesophageal echo Hyperkalemia/metabolic acidosis/uremia/renal failure/hyponatremia: In setting of end-stage renal disease on home hemodialysis. Improved with dialysis in the hospital A-fib with RVR: Rate controlled. Continue with amiodarone 200 mg twice daily, home dose of metoprolol 25 mg twice daily Heparin drip as above. Acute on chronic hypoxic respiratory failure: In setting of RSV bronchitis: Chronically on 2 L. Resolving. Most likely combination of congestive heart failure and RSV bronchitis. Antibiotic as above.. Continue with Pulmicort twice daily, DuoNeb every 6 hour Switch to prednisone 40 mg daily for 5-day course. Type 2 diabetes mellitus: Euglycemic Elevated troponin: Most likely with concerns for demand ischemia. Negative cycle troponin. Echocardiogram shows poor echo windows with grossly normal LV functions. Hypertension: Goal blood pressure less than 140/90 mmHg. Takes hydralazine 50 mg 3 times daily, metoprolol 25 mg twice daily at home. For now we will continue with metoprolol. Will restart hydralazine as per blood pressures. IV hydralazine 10 mg every 4 hours as needed for systolic blood pressure more than 160 mmHg. Continue other chronic home medications including levothyroxine, pregabalin, Requip. Thrombocytopenia: Most likely in setting of RSV and sepsis. Continue to monitor. No sign of bleeding for now. Analgesia: Home dose of [place], Tylenol as needed Glycemic control: Lantus 40 units twice daily, insulin sliding scale at moderate dose protocol Nutrition: Renal diabetic dialysis diet CODE STATUS: Full code. Today patient states she does not want her son to be the DPOA. She would want Ms. Rodriguez who is also a nurse to be the DPOA. Ms. Rodriguez is at bedside and is agreeable. Will request her to give the number to the nursing staff so that it can be added in the chart. Will request case management for DPOA paperwork. Patient is agreeable. PUD prophylaxis: Protonix DVT prophylaxis: hep gtt will be sufficient for DVT prophylaxis. Discharge planning: Home with caregiver versus SNF depending on clinical picture going forward. Patient's is the primary caregiver and does home dialysis as admitted at another hospital. Can plan for discharge to home with home health and outpatient dialysis set up while comes back home. Patient requesting to be transferred to [facility] to be closer to her . We discussed transfer can be done but it would be asked for patient's request. Patient verbalizes understanding and wants to go ahead with transfer. As per transfer center from [facility] currently they have no [facility] beds and requesting to be called back in 24 hours. Tried again today for possible transfer to [facility]. Unfortunately no bed available. As per transfer center from [facility] no bed will be available for next 48 to 72 hours. Conveyed to patient and family. PDMP PDMP Reviewed: Not Reviewed Attestations 2 Medical Necessity Statement*: Patient not ready to be discharged continue hospitalization for persistent bacteremia management Coding Level of Care Code Acute Code for Chg Fwd Diagnoses Staphylococcus aureus bacteremia R78.81; B95.61 Atrial fibrillation with RVR I48.91 Acute hyperkalemia E87.5 Metabolic acidosis E87.20 Missed dialysis End stage renal disease on dialysis N18.6; Z99.2 Uremia N19 Acute and chronic respiratory failure with hypoxia J96.21 Respiratory syncytial virus B33.8 Diastolic heart failure I50.30 HTN (hypertension) I10 TARA (obstructive sleep apnea) G47.33 Type 2 diabetes mellitus E11.9 H/O staphylococcal septicemia Z86.19 Elevated troponin R79.89 Poor intravenous access Z78.9 Chronic osteomyelitis M86.60 Infection of hemodialysis catheter T82.7XXA
[2024-12-30] MEDS: insulin glargine 100 units/1 mL 40 UNIT SUBCUT ×2 (08:28→17:47)
[2024-12-30] MEDS: insulin lispro 100 unit/1 mL SUBCUT ×3 (08:28→21:01)
[2024-12-30] MEDS: predniSONE 20 mg Tablet 40 MG PO (08:29)
[2024-12-30] MEDS: pregabalin 25 mg Capsule PO (08:29)
[2024-12-30] MEDS: amiodarone 200 mg Tablet PO ×2 (08:29→17:48)
[2024-12-30] MEDS: docusate sodium 100 mg Capsule PO ×2 (08:29→17:48)
[2024-12-30] MEDS: calcitriol 0.25 mcg Capsule 0.5 MCG PO (08:29)
[2024-12-30] MEDS: levothyroxine 112 mcg Tablet PO (08:29)
[2024-12-30] MEDS: sevelamer 800 mg Tablet 1600 MG PO ×3 (08:29→20:20)
[2024-12-30] MEDS: ropinirole 0.25 mg Tablet PO ×3 (08:29→20:20)
[2024-12-30] MEDS: nystatin powder 15 gm Btl 1 APPLIC TOPICAL ×2 (08:30→18:13)
[2024-12-30 09:26] LABS: Calcium 8.3 mg/dL (8.5-10.5)
[2024-12-30 09:34] LABS: 25 Hydroxy Vitamin D 8 ng/mL (30-100); Thyroid Stimulating Hormone 2.23 uIU/mL (0.27-4.20)
--- NOTE | 2024-12-30 09:51 | PICC.NOTE ---
20 gauge peripheral IV started to right forearm using US guidance x 2 sticks. PICC line to be removed due to possible infection risk per Dr. Lu.
[2024-12-30 09:55] LABS: Partial Thromboplastin Time 100.5 SECONDS (23.9-36.7)
[2024-12-30] MEDS: heparin, porcine 1,000 unit/mL INJ 10 mL 10000 UNIT INTRACATH (09:57)
[2024-12-30 12:05] LABS: Glucose Point of Care 139 mg/dL (70-110)
--- NOTE | 2024-12-30 12:06 | PICC.NOTE ---
PICC to left arm discontinued with 48 inches removed and tip intact. Pressure held until hemostasis obtained. No redness, swelling, drainage, or signs of infection noted. 2x2 in place with tegaderm to secure dressing. Peripheral IV in place and patent. Report given to Zackery.
[2024-12-30] MEDS: epoetin alfa 20,000 unit/mL MDV (ESRD) 10000 UNIT SUBCUT (13:16)
[2024-12-30] MEDS: heparin drip 25,000 UNIT/500 ML PREMIX 22 UNIT IV (15:03)
--- NOTE | 2024-12-30 15:25 | PC.SOCIAL ---
IMM updated IMM dated and initialed, copy given to patient and copy placed in chart
[2024-12-30 17:09] LABS: Glucose Point of Care 264 mg/dL (70-110)
[2024-12-30] MEDS: pantoprazole 40 mg SDV IVP (17:47)
[2024-12-30] MEDS: ceFAZolin 1,000 mg SDV 1000 MG IVP (17:48)
[2024-12-30] MEDS: metoprolol tartrate 25 mg Tablet PO (18:13)
[2024-12-30 18:59] LABS: Partial Thromboplastin Time 37.5 SECONDS (23.9-36.7)
--- NOTE | 2024-12-30 19:14 | PC.NURSE ---
This nurse verified PTT of 37.5 with WING [place] at shift change while giving report. Patients hep gtt will go up to 24mL/Hr. Nadya will change settings on IV pump.
[2024-12-30 20:30] LABS: Glucose Point of Care 261 mg/dL (70-110)
[2024-12-31] VITALS (16 sets, daily range): BP systolic 113–148; BP diastolic 44–73; PULSE 65–87; RESP 15–20; TEMP 36.4–37.1; O2SAT 93–100
[2024-12-31] MEDS: ipratropium-albuterol 3 mL Neb INHALATION ×4 (01:12→19:58)
[2024-12-31 01:58] LABS: Hematocrit 22.9 % (36-47); Mean Corpuscular HGB Conc 30.6 g/dL (30-55); Mean Platelet Volume 10.8 fL (7.4-10.4); Platelet Count 122 10^3/cmm (157-399); Red Blood Count 2.41 10^6/uL (3.85-5.65); White Blood Count 10.99 10^3/uL (3.29-11.43)
[2024-12-31 02:11] LABS: Alanine Aminotransferase 16 U/L (0-33); Albumin Level 2.8 g/dL (3.5-5.2); Alkaline Phosphatase 233 U/L (35-105); Anion Gap 21.9 (5-19); Aspartate Amino Transferase 14 U/L (0-32); Blood Urea Nitrogen 55 mg/dL (8-23); Carbon Dioxide 23 mmol/L (22-29); Chloride 95 mmol/L (98-107); Creatinine Clr Calc Pharmacy 10.6123; Globulin 3.8 g/dL (1.3-4.6); Glomerular Filtration Rate 6.4 mL/min (90-130); Glucose 136 mg/dL (65-115); Magnesium 2.3 mg/dL (1.7-2.3); Osmolality Calculated 297 mOsm/kg (285-295); Phosphorus 4.9 mg/dL (2.5-4.5); Potassium 4.9 mmol/L (3.5-5.1); Sodium 135 mmol/L (136-145); Total Bilirubin 0.3 mg/dL (0.15-1.2); Total Protein 6.6 g/dL (6.6-8.7)
[2024-12-31 02:27] LABS: Absolute Segmented Neutrophil 8.7 10/cmm (1.6-7.1); Anisocytosis 1+; Basophils Absolute 0.1 10^3/cmm (0.0-0.2); Eosinophils 0 %; Lymphocytes 10 %; Monocytes Absolute 0.8 10^3/cmm (0.1-0.6); Platelet Estimate Decreased (Normal); Segmented Neutrophils 79 %; Slide Review Slide Review Perform; Total Cells Counted 100 (0-100)
[2024-12-31] MEDS: HYDROcodone-acetaminophen 7.5-325 mg Tablet 1 TAB PO ×3 (05:27→17:19)
[2024-12-31 06:13] LABS: Glucose Point of Care 159 mg/dL (70-110)
[2024-12-31] MEDS: budesonide 0.5 mg/2 mL Neb INHALATION ×2 (07:45→19:58)
[2024-12-31] MEDS: insulin glargine 100 units/1 mL 40 UNIT SUBCUT ×2 (08:22→17:18)
[2024-12-31] MEDS: insulin lispro 100 unit/1 mL SUBCUT ×4 (08:22→21:12)
[2024-12-31] MEDS: amiodarone 200 mg Tablet PO ×2 (08:23→17:20)
[2024-12-31] MEDS: sevelamer 800 mg Tablet 1600 MG PO ×3 (08:23→21:12)
[2024-12-31] MEDS: metoprolol tartrate 25 mg Tablet PO ×2 (08:23→17:20)
[2024-12-31] MEDS: levothyroxine 112 mcg Tablet PO (08:23)
[2024-12-31] MEDS: pregabalin 25 mg Capsule PO (08:23)
[2024-12-31] MEDS: ropinirole 0.25 mg Tablet PO ×3 (08:23→21:12)
[2024-12-31] MEDS: calcitriol 0.25 mcg Capsule 0.5 MCG PO (08:23)
[2024-12-31] MEDS: nystatin powder 15 gm Btl 1 APPLIC TOPICAL ×2 (08:24→17:21)
[2024-12-31] MEDS: docusate sodium 100 mg Capsule PO ×2 (08:24→17:20)
--- NOTE | 2024-12-31 10:18 | P.PN_ITS ---
Subjective 2 Subjective: able to sit up. more alert. s/p HD yesterday. wants to ambulate. decreased nausea Medications: Reviewed: Yes Medication Review Details: Current Medications Acetaminophen (Acetaminophen 325 Mg Tablet) 650 mg PO Q6H PRN PRN Reason: Mild/Mod Pain Or Temp >/= 101 Hydrocodone Bitart/Acetaminophen (Hydrocodone-Acetaminophen 7.5-325 Mg Tablet) 1 tab PO Q6H NELIA Last Admin: 12/31/24 05:27 Dose: 1 tab Albuterol/Ipratropium (Ipratropium-Albuterol 3 Ml Neb) 3 ml INHALATION Q6H.RESP NELIA Last Admin: 12/31/24 07:45 Dose: 3 ml Alprazolam (Alprazolam 0.5 Mg Tablet) 0.5 mg PO BID PRN PRN Reason: ANXIETY Last Admin: 12/26/24 18:41 Dose: 0.5 mg Amiodarone HCl (Amiodarone 200 Mg Tablet) 200 mg PO BID NELIA Last Admin: 12/31/24 08:23 Dose: 200 mg Budesonide (Budesonide 0.5 Mg/2 Ml Neb) 0.5 mg INHALATION BID.RESPIRATORY NELIA Last Admin: 12/31/24 07:45 Dose: 0.5 mg Calcitriol (Calcitriol 0.25 Mcg Capsule) 0.5 mcg PO DAILY NELIA Last Admin: 12/31/24 08:23 Dose: 0.5 mcg Cefazolin Sodium (Cefazolin 1,000 Mg Sdv) 1,000 mg IVP Q24H NELIA; Protocol Last Admin: 12/30/24 17:48 Dose: 1,000 mg Docusate Sodium (Docusate Sodium 100 Mg Capsule) 100 mg PO BID NELIA Last Admin: 12/31/24 08:24 Dose: 100 mg Glucagon (Glucagon 1 Mg/Ml Kit 1 Ml) 1 mg IM ONCE PRN; Protocol PRN Reason: Adult Acute Hypoglycemia Nursing Prot. Heparin Sodium (Porcine) (Heparin 5,000 Unit/Ml Inj 1 Ml) 0 unit IVP PRN PRN; Protocol PRN Reason: Heparin Weight Based Protocol -Subsequent Bolus Last Admin: 12/27/24 22:25 Dose: 6,000 unit Hydralazine HCl (Hydralazine 20 Mg/Ml Inj 1 Ml) 10 mg IVP Q4H PRN PRN Reason: SBP More than 160 mmhg Dextrose (D5w) 500 mls @ 0 mls/hr IV ONCE PRN; Protocol PRN Reason: Adult Acute Hypoglycemia Prot Dextrose (D10w) 125 mls @ 750 mls/hr IV PRN PRN; Protocol PRN Reason: Adult Acute Hypoglycemia Nursing Protocol Dextrose (D10w) 250 mls @ 1,000 mls/hr IV PRN PRN; Protocol PRN Reason: Adult Acute Hypoglycemia Nursing Protocol Heparin Sodium/Sodium Chloride (Heparin Drip) 25,000 unit in 500 mls @ 0 mls/hr IV CONT NELIA; Protocol Last Titration: 12/30/24 20:00 Dose: 10.25 unit/kg/hr, 24 mls/hr Sodium Chloride (Sodium Chloride 0.9%) 1,000 mls @ 0 mls/hr IV .Q0M PRN PRN Reason: hypotension or symptomatic Albumin Human (Albumin) 12.5 gm in 50 mls @ 60 mls/hr IV PRN PRN PRN Reason: Hypotension and/or symptomatic Sodium Chloride (Sodium Chloride 0.9%) 1,000 mls @ 0 mls/hr IV .Q0M PRN PRN Reason: hypotension or symptomatic Albumin Human (Albumin) 12.5 gm in 50 mls @ 60 mls/hr IV PRN PRN PRN Reason: Hypotension and/or symptomatic Insulin Glargine (Insulin Glargine 100 Units/1 Ml) 40 unit SUBCUT BID [facility] Last Admin: 12/31/24 08:22 Dose: 40 unit Insulin Human Lispro (Insulin Lispro 100 Unit/1 Ml) 0 unit SUBCUT WM&BEDTIME [facility]; Protocol Last Admin: 12/31/24 08:22 Dose: 4 unit Lactulose (Lactulose Oral Liq 20 Gm/30 Ml Udc) 10 gm PO DAILY PRN; Protocol PRN Reason: Constipation (see protocol) Levothyroxine Sodium (Levothyroxine 112 Mcg Tablet) 112 mcg PO DAILY [facility] Last Admin: 12/31/24 08:23 Dose: 112 mcg Magnesium Hydroxide (Magnesium Hydroxide 30 Ml Udc) 30 ml PO DAILY PRN; Protocol PRN Reason: Constipation (see protocol) Metoprolol Tartrate (Metoprolol Tartrate 25 Mg Tablet) 25 mg PO BID [facility] Last Admin: 12/31/24 08:23 Dose: 25 mg Morphine Sulfate (Morphine 4 Mg/Ml Sdv 1 Ml) 2 mg IVP Q4H PRN PRN Reason: SEVERE PAIN Last Admin: 12/28/24 15:33 Dose: 2 mg Nystatin (Nystatin Powder 15 Gm Btl) 1 applic TOPICAL BID [facility] Last Admin: 12/31/24 08:24 Dose: 1 applic Ondansetron HCl (Ondansetron 2 Mg/Ml Sdv 2 Ml) 4 mg IVP Q6H PRN PRN Reason: vomiting, or N/V if npo Last Admin: 12/27/24 07:58 Dose: 4 mg Pantoprazole Sodium (Pantoprazole 40 Mg Sdv) 40 mg IVP Q24H [facility] Last Admin: 12/30/24 17:47 Dose: 40 mg Pregabalin (Pregabalin 25 Mg Capsule) 25 mg PO DAILY [facility] Last Admin: 12/31/24 08:23 Dose: 25 mg Ropinirole HCl (Ropinirole 0.25 Mg Tablet) 0.25 mg PO TID [facility] Last Admin: 12/31/24 08:23 Dose: 0.25 mg Sevelamer Carbonate (Sevelamer 800 Mg Tablet) 1,600 mg PO TID [facility] Last Admin: 12/31/24 08:23 Dose: 1,600 mg Vitals/I&O/Wt Last Vital Signs Temp 97.7 F 12/31/24 07:22 Pulse 67 12/31/24 07:59 Resp 18 12/31/24 07:45 BP 145/72 12/31/24 07:22 Pulse Ox 99 12/31/24 07:45 O2 Del Method Nasal Cannula 12/31/24 07:45 O2 Flow Rate 2 12/31/24 08:00 12/30/24 12/31/24 12/31/24 22:59 06:59 14:59 Intake Total 477.167 / 1762.417 200 / 1962.417 480 / 480 Balance 477.167 / -1237.583 200 / -1037.583 480 / 480 Weight last 48 hrs Weight 114.623 kg Weight 115.349 kg Weight 116.619 kg Physical Exam 2 Narrative: Obese lady in bed vital signs noted using nasal cannula oxygen. HEENT normocephalic/atraumatic. Neck is supple lungs have good air movement b/l Heart regular question overall per nurse Abdomen is soft positive bowel sounds. Extremities no significant edema. she does have bandages on her feet. in hospitalists note can see leg lesion Neuro awake alert oriented x 3 and no asterixis. +temp dialysis catheter Urinary Catheter Management: [place]: Cath Placed During This Visit: yes, but has since been removed by the nurse Reason for Continuing Indwelling Catheter: Other Urinary Catheter Date of Insertion: 12/25/24 Urinary Catheter Time of Insertion: 15:45 Date Urinary Catheter Removed: 12/28/24 Time Urinary Catheter Discontinued: 20:57 Data 12/31/24 01:26 12/31/24 01:26 Micro: Microbiology 12/29/24 19:40 Blood Culture - Preliminary Blood NEGATIVE TO DATE 12/29/24 19:46 Blood Culture - Preliminary Blood NEGATIVE TO DATE 12/28/24 09:05 Gram Stain - Final Sputum - Expectorated Sputum Sputum Culture - Final A&P Assessment and plan (1) End stage renal disease on dialysis: 64 year old female with past medical history of end-stage renal disease on home hemodialysis, type 2 diabetes mellitus, staff epidermidis bacteremia, hypertension, diastolic heart failure chronically on anticoagulation with Eliquis, hypothyroidism was brought to the ER on dec 25, 2024 by her son from home because of worsening hypoxia, generalized weakness, difficulty breathing and poor mentation. 1. a fib w/ RVR as per medicine/ cardiology 2. eSRD- pt missed her HHD, as her is no longer able to perform her home hemodialysis -s/p HD yesterday. plan on repeat HD tomorrow -please place a new permacath -phos binder for phos of 6- improved to 4.9 3. anemia- ferritin >1000, tsat 75%- NO MORE IRON. give epo -thrombocytopenia is improving -please transfuse 1 unit prbc 4. a fib- on amiodarone. regarding a/c- as she is ESRD on HD. if on eliquis just for a fib- please decrease dose to 2.5 mg po bid 5.Staph aureus bacteremia - s/p removal of Permacath- she has a rt ij temp HD catheter -appreciate Dr Lu of ID- Patient is currently on cefazolin 1 gm iv daily. - Eventually planning discharge with 6 weeks of IV cefazolin 2 g 3 times a week after dialysis. MRI of the thoracic spine completed, no signs of osteomyelitis discitis. -LAST + BLOOD CULTURES FROM 12/26/24. new Permacath, as cultures are 72 hrs negative 6.replace vit d, level is 8, monitor pth of 286-repeat next month -normla tsh 7. RSV bronchitis 8. DM care per medicine 9. HTN- controlled seen and examined w/ RN- using A/V equipment pt consents to telehealth and to dialysis Plan MSSA bacteremia- hd tomorrow, new permacath. abx, epo PDMP PDMP Reviewed: Not Reviewed Attestations 2 Medical Necessity Statement*: needs a permacath, weak Time Spent in Patient Care: 16 - 35 minutes (>than 50% of time sp ent in counselling and/or direct pt care on unit) . Coding Level of Care Code Acute Code for Chg Fwd Diagnoses End stage renal disease on dialysis N18.6; Z99.2
[2024-12-31 10:24] LABS: Partial Thromboplastin Time 37.8 SECONDS (23.9-36.7)
--- NOTE | 2024-12-31 10:37 | P.PN_ITS ---
Subjective 2 Subjective: Heparin discontinued Hemoglobin 7, Dr. Horan recommended blood transfusion today I have notified Dr. Rooney to proceed with permacath placement 01/01, will keep patient n.p.o. after midnight Patient sitting at the bedside not endorsing any active complaints Doing well on 2 L nasal cannula which she normally uses at home No active complaints Repeat blood cultures negative so far PICC line removed 12/30 Vitals/I&O/Wt Last Vital Signs Temp 97.7 F 12/31/24 07:22 Pulse 67 12/31/24 07:59 Resp 18 12/31/24 07:45 BP 145/72 12/31/24 07:22 Pulse Ox 99 12/31/24 07:45 O2 Del Method Nasal Cannula 12/31/24 07:45 O2 Flow Rate 2 12/31/24 08:00 12/30/24 12/31/24 12/31/24 22:59 06:59 14:59 Intake Total 477.167 / 1762.417 200 / 1962.417 480 / 480 Balance 477.167 / -1237.583 200 / -1037.583 480 / 480 Weight last 48 hrs Weight 114.623 kg Weight 115.349 kg Weight 116.619 kg Physical Exam 2 Narrative: Patient is awake and alert Signs of fluid overload improving Currently on 2 L Does not look fluid overloaded Lung auscultation did not reveal any crackles or crepitations Abdomen soft Lower extremity no significant edema Pleasant and cooperative sitting at the bedside AO x 4 GCS 15 S1, S2 A-fib without RVR Urinary Catheter Management: Tejada: Cath Placed During This Visit: yes, but has since been removed by the nurse Reason for Continuing Indwelling Catheter: Other Urinary Catheter Date of Insertion: 12/25/24 Urinary Catheter Time of Insertion: 15:45 Date Urinary Catheter Removed: 12/28/24 Time Urinary Catheter Discontinued: 20:57 Data 12/31/24 01:26 12/31/24 01:26 Micro: Microbiology 12/29/24 19:40 Blood Culture - Preliminary Blood NEGATIVE TO DATE 12/29/24 19:46 Blood Culture - Preliminary Blood NEGATIVE TO DATE 12/28/24 09:05 Gram Stain - Final Sputum - Expectorated Sputum Sputum Culture - Final A&P Assessment and plan (1) Staphylococcus aureus bacteremia: (2) Atrial fibrillation with RVR: (3) Acute hyperkalemia: (4) Metabolic acidosis: (5) Missed dialysis: (6) End stage renal disease on dialysis: (7) Uremia: (8) Acute and chronic respiratory failure with hypoxia: (9) Respiratory syncytial virus: (10) Diastolic heart failure: (11) HTN (hypertension): (12) TARA (obstructive sleep apnea): (13) Type 2 diabetes mellitus: (14) H/O staphylococcal septicemia: (15) Elevated troponin: (16) Poor intravenous access: (17) Chronic osteomyelitis: (18) Infection of hemodialysis catheter: Plan 64-year-old female with past medical history of end-stage renal disease on home hemodialysis presents to the ER because of worsening hypoxia, weakness due to missed home dialysis as caregiver is admitted to another hospital for respiratory failure found to have renal failure with metabolic acidosis, hyperkalemia and hypoxic respiratory failure due to RSV. Staphylococcus bacteremia: Persistent bacteremia. PICC line removed 12/30 Planning for permacath placement 01/01, will keep patient n.p.o. Repeat cultures negative to date Continue cefazolin Hyperkalemia/metabolic acidosis/uremia/renal failure/hyponatremia: In setting of end-stage renal disease on home hemodialysis. Improved with dialysis in the hospital A-fib with RVR: Rate controlled. Continue with amiodarone 200 mg twice daily, home dose of metoprolol 25 mg twice daily Heparin drip on hold secondary to anemia Acute on chronic hypoxic respiratory failure: In setting of RSV bronchitis: Chronically on 2 L. Resolving. Most likely combination of congestive heart failure and RSV bronchitis. Antibiotic as above.. Continue with Pulmicort twice daily, DuoNeb every 6 hour Switch to prednisone 40 mg daily for 5-day course. Type 2 diabetes mellitus: Euglycemic Elevated troponin: Most likely with concerns for demand ischemia. Negative cycle troponin. Echocardiogram shows poor echo windows with grossly normal LV functions. Hypertension: Goal blood pressure less than 140/90 mmHg. Takes hydralazine 50 mg 3 times daily, metoprolol 25 mg twice daily at home. For now we will continue with metoprolol. Will restart hydralazine as per blood pressures. IV hydralazine 10 mg every 4 hours as needed for systolic blood pressure more than 160 mmHg. Continue other chronic home medications including levothyroxine, pregabalin, Requip. Thrombocytopenia: Most likely in setting of RSV and sepsis. Continue to monitor. No sign of bleeding for now. Analgesia: Home dose of [place], Tylenol as needed Glycemic control: Lantus 40 units twice daily, insulin sliding scale at moderate dose protocol Nutrition: Renal diabetic dialysis diet CODE STATUS: Full code. Today patient states she does not want her son to be the DPOA. She would want Ms. Rodriguez who is also a nurse to be the DPOA. Ms. Rodriguez is at bedside and is agreeable. Will request her to give the number to the nursing staff so that it can be added in the chart. Will request case management for DPOA paperwork. Patient is agreeable. PUD prophylaxis: Protonix DVT prophylaxis: hep gtt will be sufficient for DVT prophylaxis. Discharge planning: Home with caregiver versus SNF depending on clinical picture going forward. Patient's is the primary caregiver and does home dialysis as admitted at another hospital. Can plan for discharge to home with home health and outpatient dialysis set up while comes back home. Patient likely will be discharged to a long-term. PDMP PDMP Reviewed: Not Reviewed Attestations 2 Medical Necessity Statement*: Going for permacath placement tomorrow with dentist can start prior authorization Coding Level of Care Code Acute Code for Chg Fwd Diagnoses Staphylococcus aureus bacteremia R78.81; B95.61 Atrial fibrillation with RVR I48.91 Acute hyperkalemia E87.5 Metabolic acidosis E87.20 Missed dialysis End stage renal disease on dialysis N18.6; Z99.2 Uremia N19 Acute and chronic respiratory failure with hypoxia J96.21 Respiratory syncytial virus B33.8 Diastolic heart failure I50.30 HTN (hypertension) I10 TARA (obstructive sleep apnea) G47.33 Type 2 diabetes mellitus E11.9 H/O staphylococcal septicemia Z86.19 Elevated troponin R79.89 Poor intravenous access Z78.9 Chronic osteomyelitis M86.60 Infection of hemodialysis catheter T82.7XXA
[2024-12-31 11:22] LABS: Glucose Point of Care 155 mg/dL (70-110)
[2024-12-31] MEDS: ergocalciferol (vitamin D2) 50,000 Unit Capsule 50000 UNIT PO (11:37)
[2024-12-31 16:44] LABS: Glucose Point of Care 169 mg/dL (70-110)
[2024-12-31] MEDS: pantoprazole 40 mg SDV IVP (17:18)
[2024-12-31] MEDS: ceFAZolin 1,000 mg SDV 1000 MG IVP (17:20)
[2024-12-31 18:33] LABS: Hematocrit 25.8 % (36-47)
--- NOTE | 2024-12-31 18:42 | PM.MISC ---
Miscellaneous Note Purpose of Documentation: Chart reviewed. Picc line was removed on 12/30. Currently has peripheral access. CX remains negative since 12/28/24 okay to proceed with new tunneled cath tomorrow with removal of temp line total abx course to be 6 weeks from date of catheter removal (12/29-02/09) Cefazolin 2g iv three times a week after dialysis weekly CBC, creat, LFT while on above treatment to be faxed to ID clinic Patient already established with Dr. Lay at [facility]- can follow up where she is already established
[2024-12-31 20:55] LABS: Glucose Point of Care 230 mg/dL (70-110)
[2025-01-01] VITALS (16 sets, daily range): BP systolic 101–163; BP diastolic 42–81; PULSE 66–88; RESP 16–20; TEMP 36–37.2; O2SAT 91–97
[2025-01-01] MEDS: HYDROcodone-acetaminophen 7.5-325 mg Tablet 1 TAB PO ×4 (00:14→23:58)
[2025-01-01] MEDS: ipratropium-albuterol 3 mL Neb INHALATION ×3 (01:38→19:58)
[2025-01-01 03:11] LABS: Basophils % 0.2 %; Eosinophils # 0.2 10^3/uL (0.0-0.8); Eosinophils % 1.8 %; Hematocrit 24.3 % (36-47); Lymphocytes % 20.2 %; Mean Corpuscular HGB Conc 32.1 g/dL (30-55); Mean Corpuscular Hemoglobin 30.5 pg (27-33); Mean Corpuscular Volume 94.9 fl (85-98); Mean Platelet Volume 10.8 fL (7.4-10.4); Monocytes # 0.9 10^3/uL (0.2-0.9); Monocytes % 9.1 %; Neutrophils # 6.17 10^3/uL (1.8-7.7); Nucleated Red Blood Cells % 0 %; Platelet Count 136 10^3/cmm (157-399); Red Blood Count 2.56 10^6/uL (3.85-5.65); Red Cell Distribution Width 14.6 % (12.1-15.1); White Blood Count 10.11 10^3/uL (3.29-11.43)
[2025-01-01 03:35] LABS: Alanine Aminotransferase < 5 U/L (0-33); Albumin Level 2.8 g/dL (3.5-5.2); Alkaline Phosphatase 225 U/L (35-105); Aspartate Amino Transferase 12 U/L (0-32); Blood Urea Nitrogen 73 mg/dL (8-23); Calcium 7.9 mg/dL (8.5-10.5); Carbon Dioxide 21 mmol/L (22-29); Chloride 99 mmol/L (98-107); Creatinine Clr Calc Pharmacy 8.9255; Globulin 3.7 g/dL (1.3-4.6); Glomerular Filtration Rate 5.3 mL/min (90-130); Glucose 120 mg/dL (65-115); Magnesium 2.3 mg/dL (1.7-2.3); Osmolality Calculated 307 mOsm/kg (285-295); Phosphorus 5.9 mg/dL (2.5-4.5); Sodium 137 mmol/L (136-145); Total Bilirubin 0.3 mg/dL (0.15-1.2); Total Protein 6.5 g/dL (6.6-8.7)
[2025-01-01 04:01] LABS: Slide Review Slide Review Perform
[2025-01-01 06:30] LABS: Glucose Point of Care 138 mg/dL (70-110)
--- NOTE | 2025-01-01 08:42 | P.PN_ITS ---
Subjective 2 Subjective: still sob, weak, palps, some edema. no n/v/f/c/bedolla/d/leg pains Medications: Reviewed: Yes Medication Review Details: Current Medications Acetaminophen (Acetaminophen 325 Mg Tablet) 650 mg PO Q6H PRN PRN Reason: Mild/Mod Pain Or Temp >/= 101 Hydrocodone Bitart/Acetaminophen (Hydrocodone-Acetaminophen 7.5-325 Mg Tablet) 1 tab PO Q6H NELIA Last Admin: 01/01/25 06:30 Dose: 1 tab Albuterol/Ipratropium (Ipratropium-Albuterol 3 Ml Neb) 3 ml INHALATION Q6H.RESP NELIA Last Admin: 01/01/25 01:38 Dose: 3 ml Alprazolam (Alprazolam 0.5 Mg Tablet) 0.5 mg PO BID PRN PRN Reason: ANXIETY Last Admin: 12/26/24 18:41 Dose: 0.5 mg Amiodarone HCl (Amiodarone 200 Mg Tablet) 200 mg PO BID NELIA Last Admin: 12/31/24 17:20 Dose: 200 mg Budesonide (Budesonide 0.5 Mg/2 Ml Neb) 0.5 mg INHALATION BID.RESPIRATORY NELIA Last Admin: 12/31/24 19:58 Dose: 0.5 mg Calcitriol (Calcitriol 0.25 Mcg Capsule) 0.25 mcg PO DAILY NELIA Cefazolin Sodium (Cefazolin 1,000 Mg Sdv) 1,000 mg IVP Q24H NELIA; Protocol Last Admin: 12/31/24 17:20 Dose: 1,000 mg Docusate Sodium (Docusate Sodium 100 Mg Capsule) 100 mg PO BID NELIA Last Admin: 12/31/24 17:20 Dose: 100 mg Ergocalciferol (Ergocalciferol (Vitamin D2) 50,000 Unit Capsule) 50,000 unit PO Q7D NELIA Stop: 01/15/25 11:11 Last Admin: 12/31/24 11:37 Dose: 50,000 unit Glucagon (Glucagon 1 Mg/Ml Kit 1 Ml) 1 mg IM ONCE PRN; Protocol PRN Reason: Adult Acute Hypoglycemia Nursing Prot. Heparin Sodium (Porcine) (Heparin 5,000 Unit/Ml Inj 1 Ml) 0 unit IVP PRN PRN; Protocol PRN Reason: Heparin Weight Based Protocol -Subsequent Bolus Last Admin: 12/27/24 22:25 Dose: 6,000 unit Hydralazine HCl (Hydralazine 20 Mg/Ml Inj 1 Ml) 10 mg IVP Q4H PRN PRN Reason: SBP More than 160 mmhg Dextrose (D5w) 500 mls @ 0 mls/hr IV ONCE PRN; Protocol PRN Reason: Adult Acute Hypoglycemia Prot Dextrose (D10w) 125 mls @ 750 mls/hr IV PRN PRN; Protocol PRN Reason: Adult Acute Hypoglycemia Nursing Protocol Dextrose (D10w) 250 mls @ 1,000 mls/hr IV PRN PRN; Protocol PRN Reason: Adult Acute Hypoglycemia Nursing Protocol Heparin Sodium/Sodium Chloride (Heparin Drip) 25,000 unit in 500 mls @ 0 mls/hr IV CONT [facility]; Protocol Last Titration: 12/30/24 20:00 Dose: 10.25 unit/kg/hr, 24 mls/hr Sodium Chloride (Sodium Chloride 0.9%) 1,000 mls @ 0 mls/hr IV .Q0M PRN PRN Reason: hypotension or symptomatic Sodium Chloride (Sodium Chloride 0.9%) 1,000 mls @ 0 mls/hr IV .Q0M PRN PRN Reason: hypotension or symptomatic Albumin Human (Albumin) 12.5 gm in 50 mls @ 60 mls/hr IV PRN PRN PRN Reason: Hypotension and/or symptomatic Insulin Glargine (Insulin Glargine 100 Units/1 Ml) 40 unit SUBCUT BID [facility] Last Admin: 12/31/24 17:18 Dose: 40 unit Insulin Human Lispro (Insulin Lispro 100 Unit/1 Ml) 0 unit SUBCUT WM&BEDTIME [facility]; Protocol Last Admin: 01/01/25 07:29 Dose: Not Given Lactulose (Lactulose Oral Liq 20 Gm/30 Ml Udc) 10 gm PO DAILY PRN; Protocol PRN Reason: Constipation (see protocol) Levothyroxine Sodium (Levothyroxine 112 Mcg Tablet) 112 mcg PO DAILY [facility] Last Admin: 12/31/24 08:23 Dose: 112 mcg Magnesium Hydroxide (Magnesium Hydroxide 30 Ml Udc) 30 ml PO DAILY PRN; Protocol PRN Reason: Constipation (see protocol) Metoprolol Tartrate (Metoprolol Tartrate 25 Mg Tablet) 25 mg PO BID [facility] Last Admin: 12/31/24 17:20 Dose: 25 mg Morphine Sulfate (Morphine 4 Mg/Ml Sdv 1 Ml) 2 mg IVP Q4H PRN PRN Reason: SEVERE PAIN Last Admin: 12/28/24 15:33 Dose: 2 mg Nystatin (Nystatin Powder 15 Gm Btl) 1 applic TOPICAL BID [facility] Last Admin: 12/31/24 17:21 Dose: 1 applic Ondansetron HCl (Ondansetron 2 Mg/Ml Sdv 2 Ml) 4 mg IVP Q6H PRN PRN Reason: vomiting, or N/V if npo Last Admin: 12/27/24 07:58 Dose: 4 mg Pantoprazole Sodium (Pantoprazole 40 Mg Sdv) 40 mg IVP Q24H [facility] Last Admin: 12/31/24 17:18 Dose: 40 mg Pregabalin (Pregabalin 25 Mg Capsule) 25 mg PO DAILY [facility] Last Admin: 12/31/24 08:23 Dose: 25 mg Ropinirole HCl (Ropinirole 0.25 Mg Tablet) 0.25 mg PO TID [facility] Last Admin: 12/31/24 21:12 Dose: 0.25 mg Sevelamer Carbonate (Sevelamer 800 Mg Tablet) 1,600 mg PO TID [facility] Last Admin: 12/31/24 21:12 Dose: 1,600 mg Sodium Chloride (Sodium Chloride 0.9% 100 Ml Bag) 50 ml IV PRN PRN PRN Reason: Blood transfusion prime and flush Stop: 01/01/25 10:25 Vitals/I&O/Wt Last Vital Signs Temp 98.4 F 01/01/25 04:00 Pulse 83 01/01/25 04:00 Resp 16 01/01/25 04:00 BP 160/72 01/01/25 04:00 Pulse Ox 92 01/01/25 04:00 O2 Del Method Nasal Cannula 01/01/25 04:00 O2 Flow Rate 2 01/01/25 04:00 12/31/24 01/01/25 01/01/25 22:59 06:59 14:59 Intake Total 250 / 970 360 / 1330 Balance 250 / 970 360 / 1330 Weight last 48 hrs Weight 114.577 kg Weight 114.351 kg Weight 114.623 kg Weight 115.349 kg Physical Exam 2 Narrative: Obese lady in bed vital signs noted using nasal cannula oxygen and o2=92% HEENT normocephalic/atraumatic. Neck is supple lungs have crackles and basal dullness b/l Heart regular question overall per nurse Abdomen is soft positive bowel sounds. Extremities + b/l ankle edema. she does have bandages on her feet. bandage over ulcer- not unwrapped Neuro awake alert oriented x 3 and no asterixis. +temp dialysis catheter Urinary Catheter Management: Tejada: Cath Placed During This Visit: yes, but has since been removed by the nurse Reason for Continuing Indwelling Catheter: Other Urinary Catheter Date of Insertion: 12/25/24 Urinary Catheter Time of Insertion: 15:45 Date Urinary Catheter Removed: 12/28/24 Time Urinary Catheter Discontinued: 20:57 Data 01/01/25 02:37 01/01/25 02:37 A&P Assessment and plan (1) End stage renal disease on dialysis: 64 year old female with past medical history of end-stage renal disease on home hemodialysis, type 2 diabetes mellitus, staff epidermidis bacteremia, hypertension, diastolic heart failure chronically on anticoagulation with Eliquis, hypothyroidism was brought to the ER on dec 25, 2024 by her son from home because of worsening hypoxia, generalized weakness, difficulty breathing and poor mentation. 1. a fib w/ RVR as per medicine/ cardiology 2. eSRD- pt missed her HHD, as her is no longer able to perform her home hemodialysis -plan for a new permacath- then hd -phos binder for phos of 6- improved to 5.9 3. anemia- ferritin >1000, tsat 75%- NO MORE IRON. give epo -thrombocytopenia is improving -please transfuse 1 unit prbc 4. a fib- on amiodarone. regarding a/c- as she is ESRD on HD. if on eliquis just for a fib- please decrease dose to 2.5 mg po bid 5.Staph aureus bacteremia - s/p removal of Permacath- she has a rt ij temp HD catheter -appreciate Dr Lu of ID- Patient is currently on cefazolin 1 gm iv daily. - total abx course to be 6 weeks from date of catheter removal (12/29-02/09) Cefazolin 2g iv three times a week after dialysis MRI of the thoracic spine completed, no signs of osteomyelitis discitis. -LAST + BLOOD CULTURES FROM 12/26/24. 6.replace vit d, level is 8, monitor pth of 286-repeat next month -normal tsh 7. RSV bronchitis 8. DM care per medicine 9. HTN- improves w/ hd seen and examined w/ RN- using A/V equipment pt consents to telehealth and to dialysis Plan MSSA bacteremia- hd and new permacath today PDMP PDMP Reviewed: Not Reviewed Attestations 2 Medical Necessity Statement*: esrd, MSSA bacteremia, awaiting permacath, hypoxemia Time Spent in Patient Care: 16 - 35 minutes (>than 50% of time sp ent in counselling and/or direct pt care on unit) . Coding Level of Care Code Acute Code for Chg Fwd Diagnoses End stage renal disease on dialysis N18.6; Z99.2
[2025-01-01] MEDS: budesonide 0.5 mg/2 mL Neb INHALATION ×2 (09:02→19:58)
[2025-01-01] MEDS: docusate sodium 100 mg Capsule PO ×2 (09:22→17:54)
[2025-01-01] MEDS: sevelamer 800 mg Tablet 1600 MG PO ×2 (09:22→20:07)
[2025-01-01] MEDS: pregabalin 25 mg Capsule PO (09:22)
[2025-01-01] MEDS: metoprolol tartrate 25 mg Tablet PO ×2 (09:23→19:40)
[2025-01-01] MEDS: amiodarone 200 mg Tablet PO ×2 (09:23→19:40)
[2025-01-01] MEDS: levothyroxine 112 mcg Tablet PO (09:23)
[2025-01-01] MEDS: insulin glargine 100 units/1 mL 40 UNIT SUBCUT ×2 (09:23→20:08)
[2025-01-01] MEDS: ropinirole 0.25 mg Tablet PO ×2 (09:23→20:07)
[2025-01-01] MEDS: calcitriol 0.25 mcg Capsule PO (09:23)
[2025-01-01] MEDS: nystatin powder 15 gm Btl 1 APPLIC TOPICAL ×2 (09:24→20:09)
--- NOTE | 2025-01-01 10:23 | P.ANESASSM_ITS ---
Pre-Anesthetic Assessment Height/Weight: Height 5 ft 4 in Weight 252 lb 9.6 oz Temp Pulse Resp BP Pulse Ox O2 Del Method O2 Flow Rate 99.0 F 74 18 151/62 96 Nasal Cannula 2 01/01/25 07:24 01/01/25 09:14 01/01/25 09:03 01/01/25 07:24 01/01/25 09:03 01/01/25 09:03 01/01/25 09:03 Preop Diagnosis: ESRD Operation Date: 01/01/25 13:10 Proposed Procedures p Dialysis Catheter Insertion Permacath Insertion(Not Applicable) - Evan Rooney, DO Was Beta Corinne taken within 24 hours: N/A Was Clonidine taken within 24 hours: N/A Last intake: Intake Last Liquid Date 01/01/25 Last Liquid Time 09:00 Last Solid Date 01/01/25 Last Solid Time 20:00 Social No alcohol and No tobacco Exam alert, oriented x 3, clear to auscultation bilaterally and regular rate & rhythm Airway Submandibular: within normal limits Cervical ROM: within normal limits Mallampati: Class III Dentition: full Anesthetic Plan ASA status: 3 Anesthesia: MAC Other: Patient initially admitted on 12/25/2024 with RSV Patient reports no issues with anesthesia in the past NPO since yesterday Patient has a history of A-fib with RVR. On chronic Eliquis Patient uses 2 L O2 at baseline at home. Patient was 87% on 2 L when she arrived to preop. We increased her nasal cannula to 4 L which increased SpO2 Type 2 diabetes on insulin. BS this morning 120 Labs from today reviewed, hemoglobin 7.8. Electrolytes stable. BUN 73, creatinine 7.7 Echo performed 12/26/2024 demonstrating normal EF. Unable to be calculated EKG showing A-fib with RVR Plan for MAC anesthetic Medications/Allergies Home Medications ?Medication ?Instructions ?Recorded ?Confirmed ?Last Taken ?Type albuterol sulfate 2.5 mg/3 mL 2.5 mg inhalation Q6H 12/25/24 Unknown History (0.083 %) solution for nebulization apixaban 5 mg tablet (Eliquis) 5 mg PO BID 12/25/24 Unknown History calcitriol 0.25 mcg capsule 0.25 mcg PO DAILY 12/25/24 12/25/24 Unknown History calcitriol 0.5 mcg capsule 0.5 mcg PO DAILY 12/25/24 0 12/25/24 Unknown History hydralazine 50 mg tablet 50 mg PO TID 12/25/24 Unknown History hydrocodone 7.5 mg-acetaminophen 1 - 2 tab PO .Q4-6H 0 12/25/24 12/25/24 Unknown History 325 mg tablet insulin glargine U-300 conc 300 25 unit SUBCUT BID 04/1312/25/24 Unknown History unit/mL (3 mL) subcutaneous pen (Toujeo Max U-300 SoloStar) insulin lispro 100 unit/mL 22 unit SUBCUT .WITH EACH M EAL 12/25/24 12/25/24 Unknown History subcutaneous pen ipratropium bromide 42 mcg (0.06 2 spray intranasal TI D 12/25/24 12/25/24 Unknown History %) nasal spray levothyroxine 112 mcg tablet 112 mcg PO DAILY 12/25/24 12/25/24 Unknown History metoprolol tartrate 25 mg tablet 25 mg PO BID 12/25/24 12/25/24 Unknown History pregabalin 25 mg capsule 25 mg PO DAILY 12/25/2404/13 Unknown History ropinirole 0.25 mg tablet 0.25 mg PO TID 12/25/2404/13 Unknown History ropinirole 0.5 mg tablet 0.5 mg PO TID 12/25/2412/25 Unknown History semaglutide 2 mg/dose (8 mg/3 mL) 2 mg SUBCUT Q7D 04/1312/25/24 Unknown History subcutaneous pen injector (Ozempic) vitamin B complex and vitamin C 1 cap PO DAILY 5 12/25/24 Unknown History no.20-folic acid 1 mg capsule ([place] Caps) Allergies Allergy/AdvReac Type Severity Reaction Status Date / Time bumetanide Allergy Unknown Unknown Verified 09/17/24 14:03 sulfamethoxazole (From Allergy Unknown Unknown Verified 04/08/21 14:06 Bactrim) trimethoprim (From Bactrim) Allergy Unknown Unknown Verified 04/08/21 14:06 levofloxacin (From Levaquin) Allergy ADR-Itching Verified 04/08/21 14:06 NSAIDS (Non-Steroidal Allergy Unknown Verified 04/08/21 14:06 Anti-Inflamma Current Medications Generic Name Dose Route Start Last Admin Trade Name Freq PRN Reason Stop Dose Admin Hydrocodone Bitart/Acetaminophen 1 tab 12/25/24 18:00 01/01/25 06:30 Hydrocodone-Acetaminophen 7.5-325 Mg Tablet PO 1 tab Q6H NELIA Administration Albuterol/Ipratropium 3 ml 12/25/24 20:00 01/01/25 09:03 Ipratropium-Albuterol 3 Ml Neb INHALATION 3 ml Q6H.RESP NELIA Administration Alprazolam 0.5 mg 12/26/24 11:44 12/26/24 18:41 Alprazolam 0.5 Mg Tablet PO 0.5 mg BID PRN Administration ANXIETY Amiodarone HCl 200 mg 12/26/24 18:00 01/01/25 09:23 Amiodarone 200 Mg Tablet PO 200 mg BID NELIA Administration Budesonide 0.5 mg 12/27/24 08:00 01/01/25 09:02 Budesonide 0.5 Mg/2 Ml Neb INHALATION 0.5 mg BID.RESPIRATORY NELIA Administration Calcitriol 0.25 mcg 01/01/25 09:00 01/01/25 09:23 Calcitriol 0.25 Mcg Capsule PO 0.25 mcg DAILY NELIA Administration Cefazolin Sodium 1,000 mg 12/28/24 15:00 12/31/24 17:20 Cefazolin 1,000 Mg Sdv IVP 1,000 mg Q24H NELIA Administration Protocol Docusate Sodium 100 mg 12/25/24 18:00 01/01/25 09:22 Docusate Sodium 100 Mg Capsule PO 100 mg BID NELIA Administration Ergocalciferol 50,000 unit 12/31/24 10:30 12/31/24 11:37 Ergocalciferol (Vitamin D2) 50,000 Unit Capsule PO 01/15/25 11:11 50,000 unit Q7D NELIA Administration Heparin Sodium (Porcine) 0 unit 12/27/24 13:50 12/27/24 22:25 Heparin 5,000 Unit/Ml Inj 1 Ml IVP 6,000 unit PRN PRN Administration Heparin Weight Based Protocol -Subsequent Bolus Protocol Heparin Sodium/Sodium Chloride 25,000 unit in 500 mls @ 0 mls/hr 12/27/24 14:00 12/30/24 20:00 Heparin Drip IV 10.25 unit/kg/hr CONT NELIA 24 mls/hr Titration Protocol Per Protocol Insulin Glargine 40 unit 12/26/24 09:00 01/01/25 09:23 Insulin Glargine 100 Units/1 Ml SUBCUT 40 unit BID NELIA Administration Insulin Human Lispro 0 unit 12/25/24 18:00 01/01/25 07:29 Insulin Lispro 100 Unit/1 Ml SUBCUT Not Given WM&BEDTIME [facility] Protocol Levothyroxine Sodium 112 mcg 12/26/24 09:00 01/01/25 09:23 Levothyroxine 112 Mcg Tablet PO 112 mcg DAILY NELIA Administration Metoprolol Tartrate 25 mg 12/26/24 18:00 01/01/25 09:23 Metoprolol Tartrate 25 Mg Tablet PO 25 mg BID NELIA Administration Morphine Sulfate 2 mg 12/25/24 17:28 12/28/24 15:33 Morphine 4 Mg/Ml Sdv 1 Ml IVP 2 mg Q4H PRN Administration SEVERE PAIN Nystatin 1 applic 12/28/24 09:00 01/01/25 09:24 Nystatin Powder 15 Gm Btl TOPICAL 1 applic BID NELIA Administration Ondansetron HCl 4 mg 12/25/24 17:28 12/27/24 07:58 Ondansetron 2 Mg/Ml Sdv 2 Ml IVP 4 mg Q6H PRN Administration vomiting, or N/V if npo Pantoprazole Sodium 40 mg 12/25/24 17:28 12/31/24 17:18 Pantoprazole 40 Mg Sdv IVP 40 mg Q24H NELIA Administration Pregabalin 25 mg 12/26/24 09:00 01/01/25 09:22 Pregabalin 25 Mg Capsule PO 25 mg DAILY NELIA Administration Ropinirole HCl 0.25 mg 12/25/24 21:00 01/01/25 09:23 Ropinirole 0.25 Mg Tablet PO 0.25 mg TID [facility] Administration Sevelamer Carbonate 1,600 mg 12/30/24 09:00 01/01/25 09:22 Sevelamer 800 Mg Tablet PO 1,600 mg TID NELIA Administration Additional Medication Information Current Medications Acetaminophen (Acetaminophen 325 Mg Tablet) 650 mg PO Q6H PRN PRN Reason: Mild/Mod Pain Or Temp >/= 101 Hydrocodone Bitart/Acetaminophen (Hydrocodone-Acetaminophen 7.5-325 Mg Tablet) 1 tab PO Q6H NELIA Last Admin: 01/01/25 06:30 Dose: 1 tab Albuterol/Ipratropium (Ipratropium-Albuterol 3 Ml Neb) 3 ml INHALATION Q6H.RESP NELIA Last Admin: 01/01/25 01:38 Dose: 3 ml Alprazolam (Alprazolam 0.5 Mg Tablet) 0.5 mg PO BID PRN PRN Reason: ANXIETY Last Admin: 12/26/24 18:41 Dose: 0.5 mg Amiodarone HCl (Amiodarone 200 Mg Tablet) 200 mg PO BID NELIA Last Admin: 12/31/24 17:20 Dose: 200 mg Budesonide (Budesonide 0.5 Mg/2 Ml Neb) 0.5 mg INHALATION BID.RESPIRATORY NELIA Last Admin: 12/31/24 19:58 Dose: 0.5 mg Calcitriol (Calcitriol 0.25 Mcg Capsule) 0.25 mcg PO DAILY NELIA Cefazolin Sodium (Cefazolin 1,000 Mg Sdv) 1,000 mg IVP Q24H NELIA; Protocol Last Admin: 12/31/24 17:20 Dose: 1,000 mg Docusate Sodium (Docusate Sodium 100 Mg Capsule) 100 mg PO BID NELIA Last Admin: 12/31/24 17:20 Dose: 100 mg Ergocalciferol (Ergocalciferol (Vitamin D2) 50,000 Unit Capsule) 50,000 unit PO Q7D [facility] Stop: 01/15/25 11:11 Last Admin: 12/31/24 11:37 Dose: 50,000 unit Glucagon (Glucagon 1 Mg/Ml Kit 1 Ml) 1 mg IM ONCE PRN; Protocol PRN Reason: Adult Acute Hypoglycemia Nursing Prot. Heparin Sodium (Porcine) (Heparin 5,000 Unit/Ml Inj 1 Ml) 0 unit IVP PRN PRN; Protocol PRN Reason: Heparin Weight Based Protocol -Subsequent Bolus Last Admin: 12/27/24 22:25 Dose: 6,000 unit Hydralazine HCl (Hydralazine 20 Mg/Ml Inj 1 Ml) 10 mg IVP Q4H PRN PRN Reason: SBP More than 160 mmhg Dextrose (D5w) 500 mls @ 0 mls/hr IV ONCE PRN; Protocol PRN Reason: Adult Acute Hypoglycemia Prot Dextrose (D10w) 125 mls @ 750 mls/hr IV PRN PRN; Protocol PRN Reason: Adult Acute Hypoglycemia Nursing Protocol Dextrose (D10w) 250 mls @ 1,000 mls/hr IV PRN PRN; Protocol PRN Reason: Adult Acute Hypoglycemia Nursing Protocol Heparin Sodium/Sodium Chloride (Heparin Drip) 25,000 unit in 500 mls @ 0 mls/hr IV CONT NELIA; Protocol Last Titration: 12/30/24 20:00 Dose: 10.25 unit/kg/hr, 24 mls/hr Sodium Chloride (Sodium Chloride 0.9%) 1,000 mls @ 0 mls/hr IV .Q0M PRN PRN Reason: hypotension or symptomatic Sodium Chloride (Sodium Chloride 0.9%) 1,000 mls @ 0 mls/hr IV .Q0M PRN PRN Reason: hypotension or symptomatic Albumin Human (Albumin) 12.5 gm in 50 mls @ 60 mls/hr IV PRN PRN PRN Reason: Hypotension and/or symptomatic Insulin Glargine (Insulin Glargine 100 Units/1 Ml) 40 unit SUBCUT BID [facility] Last Admin: 12/31/24 17:18 Dose: 40 unit Insulin Human Lispro (Insulin Lispro 100 Unit/1 Ml) 0 unit SUBCUT WM&BEDTIME [facility]; Protocol Last Admin: 01/01/25 07:29 Dose: Not Given Lactulose (Lactulose Oral Liq 20 Gm/30 Ml Udc) 10 gm PO DAILY PRN; Protocol PRN Reason: Constipation (see protocol) Levothyroxine Sodium (Levothyroxine 112 Mcg Tablet) 112 mcg PO DAILY [facility] Last Admin: 12/31/24 08:23 Dose: 112 mcg Magnesium Hydroxide (Magnesium Hydroxide 30 Ml Udc) 30 ml PO DAILY PRN; Protocol PRN Reason: Constipation (see protocol) Metoprolol Tartrate (Metoprolol Tartrate 25 Mg Tablet) 25 mg PO BID [facility] Last Admin: 12/31/24 17:20 Dose: 25 mg Morphine Sulfate (Morphine 4 Mg/Ml Sdv 1 Ml) 2 mg IVP Q4H PRN PRN Reason: SEVERE PAIN Last Admin: 12/28/24 15:33 Dose: 2 mg Nystatin (Nystatin Powder 15 Gm Btl) 1 applic TOPICAL BID [facility] Last Admin: 12/31/24 17:21 Dose: 1 applic Ondansetron HCl (Ondansetron 2 Mg/Ml Sdv 2 Ml) 4 mg IVP Q6H PRN PRN Reason: vomiting, or N/V if npo Last Admin: 12/27/24 07:58 Dose: 4 mg Pantoprazole Sodium (Pantoprazole 40 Mg Sdv) 40 mg IVP Q24H [facility] Last Admin: 12/31/24 17:18 Dose: 40 mg Pregabalin (Pregabalin 25 Mg Capsule) 25 mg PO DAILY [facility] Last Admin: 12/31/24 08:23 Dose: 25 mg Ropinirole HCl (Ropinirole 0.25 Mg Tablet) 0.25 mg PO TID [facility] Last Admin: 12/31/24 21:12 Dose: 0.25 mg Sevelamer Carbonate (Sevelamer 800 Mg Tablet) 1,600 mg PO TID [facility] Last Admin: 12/31/24 21:12 Dose: 1,600 mg Sodium Chloride (Sodium Chloride 0.9% 100 Ml Bag) 50 ml IV PRN PRN PRN Reason: Blood transfusion prime and flush Stop: 01/01/25 10:25 [facility] Anesthesia Medical History 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 Pain management contract signed Lumbar stenosis with neurogenic claudication Seizure PRES (posterior reversible encephalopathy syndrome) RLS (restless legs syndrome) TARA (obstructive sleep apnea) Chronic antibiotic suppression Staphylococcus epidermidis bacteremia Diastolic heart failure H/O staphylococcal septicemia Hyperglycemia Cellulitis Thyroid disease Chronic back pain Renal failure HTN (hypertension) Obesity Surgical History 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 H/O: hysterectomy Arteriovenous fistula History of tonsillectomy History of cholecystectomy History of back surgery History of appendectomy History of adenoidectomy Family History Other Cancer Social History Smoking and tobacco/nicotine status: never used tobacco/nicotine Alcohol intake: never Substance/Drug Use: never Lives independently: Yes Household members: spouse Housing: House Marital status: Data Anesthesia 01/01/25 02:37 01/01/25 02:37 Short CBC 02/10/1412/31/24 01/01/25 Range/Units 01:26 18:22 02:37 WBC 10.99 10.11 (3.29-11.43) 10^3/uL Hgb 7.00 L 8.20 L 7.80 L (11.27-16.99) g/dL Hct 22.9 L 25.8 L 24.3 L (36-47) % MCV 95.0 94.9 (85-98) fl Plt Count 122 L D 136 L (157-399) 10^3/cmm Neut % (Auto) 61.0 % Neut # (Auto) 6.17 (1.8-7.7) 10^3/uL BMP 12/31/24 01/01/25 01:26 02:37 Sodium 135 L 137 Potassium 4.9 5.0 Chloride 95 L 99 Carbon Dioxide 23 21 L BUN 55 H 73 H Creatinine 6.5 H* 7.7 H* Glucose 136 H 120 H Calcium 8.0 L 7.9 L Liver Function 12/31/24 01/01/25 Range/Units 01:26 02:37 Total Bilirubin 0.3 0.3 (0.15-1.2) mg/dL AST 14 12 (0-32) U/L ALT 16 < 5 (0-33) U/L Alkaline Phosphatase 233 H 225 H (35-105) U/L Albumin 2.8 L 2.8 L (3.5-5.2) g/dL Blood Bank 12/31/24 11:06 Blood Type O Positive Rho(D) Type Rh positive Antibody Screen Negative Coags 12/30/24 12/31/24 12/31/24 18:04 01:26 09:42 APTT 37.5 H D 69.0 H D 37.8 H Cardiac Studies: 2 Echocardiogram 12/26/24 Echocardiogram Ultrasound 11/27/19
[2025-01-01] MEDS: sodium chloride 0.9% 1,000 ML 30 ML IV (11:03)
--- NOTE | 2025-01-01 11:12 | P.PN_ITS ---
Vitals/I&O/Wt Last Vital Signs Temp 99.0 F 01/01/25 07:24 Pulse 74 01/01/25 09:14 Resp 18 01/01/25 09:03 BP 151/62 01/01/25 07:24 Pulse Ox 96 01/01/25 09:03 O2 Del Method Nasal Cannula 01/01/25 09:03 O2 Flow Rate 2 01/01/25 09:03 12/31/24 01/01/25 01/01/25 22:59 06:59 14:59 Intake Total 250 / 970 360 / 1330 Balance 250 / 970 360 / 1330 Weight last 48 hrs Weight 252 lb 9.6 oz Weight 252 lb 1.6 oz Weight 252 lb 11.2 oz Weight 254 lb 4.8 oz Physical Exam 2 Urinary Catheter Management: [place]: Cath Placed During This Visit: yes, but has since been removed by the nurse Reason for Continuing Indwelling Catheter: Other Urinary Catheter Date of Insertion: 12/25/24 Urinary Catheter Time of Insertion: 15:45 Date Urinary Catheter Removed: 12/28/24 Time Urinary Catheter Discontinued: 20:57 Data 01/01/25 02:37 01/01/25 02:37 A&P Assessment and plan (1) Staphylococcus aureus bacteremia: (2) End stage renal disease on dialysis: Plan Last 2 sets of blood cultures have been negative to date Permacath placement The risks and benefits of the procedure, including but not limited to, bleeding, infection, infection requiring Mediport removal antibiotic therapy and repeat surgery, damage to surrounding structures, scar, numbness, pain, pneumothorax requiring thoracostomy tube, were explained to the patient. He/She is understanding of the risks and wishes to proceed. PDMP PDMP Reviewed: Not Reviewed Attestations 2 Medical Necessity Statement*: Per primary Coding Level of Care Code Acute Code for g Fwd Diagnoses Staphylococcus aureus bacteremia R78.81; B95.61 End stage renal disease on dialysis N18.6; Z99.2
[2025-01-01 11:24] LABS: Glucose Point of Care 89 mg/dL (70-110)
--- NOTE | 2025-01-01 11:26 | FL_ITS ---
WS: [id number] EXAMINATION: [place] fluoroscopy [id number] ORDER DATE: 01/01/2025 11:26 AM REASON FOR EXAM: HEMODIALYSIS CATHETER INSERTION COMPARISON: None available. FLUOROSCOPY TIME: 17 seconds # OF SPOT FILMS: 1 FINDINGS: Drains right internal jugular dual-lumen dialysis catheter placement with the tip in the distal superior vena cava. No new pneumothorax. FL/FL fluoroscopy [id number] IMPRESSION: Dialysis catheter placement as above.
--- NOTE | 2025-01-01 12:15 | P.PN_ITS ---
Subjective 2 Subjective: Plan for permacath placement today Afebrile Cultures remain negative We may resume Eliquis 24 hours after permacath placement A-fib without RVR Patient ambulating well without significant help, Patient is stating that if she does not get accepted for halfway placement she is okay going home Vitals/I&O/Wt Last Vital Signs Temp 99.0 F 01/01/25 07:24 Pulse 74 01/01/25 09:14 Resp 18 01/01/25 09:03 BP 151/62 01/01/25 07:24 Pulse Ox 96 01/01/25 09:03 O2 Del Method Nasal Cannula 01/01/25 09:03 O2 Flow Rate 2 01/01/25 09:03 12/31/24 01/01/25 01/01/25 22:59 06:59 14:59 Intake Total 250 / 970 360 / 1330 Balance 250 / 970 360 / 1330 Weight last 48 hrs Weight 114.577 kg Weight 114.351 kg Weight 114.623 kg Weight 115.349 kg Physical Exam 2 Narrative: Euvolemic GCS 15 No audible thyroid wheezing Currently on 2 L Abdomen soft No audible stridor or wheezing at all No sign of fluid overload Active chest pain AOx4 GCS 15 Urinary Catheter Management: [place]: Cath Placed During This Visit: yes, but has since been removed by the nurse Reason for Continuing Indwelling Catheter: Other Urinary Catheter Date of Insertion: 12/25/24 Urinary Catheter Time of Insertion: 15:45 Date Urinary Catheter Removed: 12/28/24 Time Urinary Catheter Discontinued: 20:57 Data 01/01/25 02:37 01/01/25 02:37 A&P Assessment and plan (1) Diastolic heart failure: (2) Atrial fibrillation with RVR: (3) Diabetes: Qualifiers: Diabetes mellitus complication status: with hyperglycemia Diabetes mellitus terminologist insulin use: with fpc use Diabetes mellitus type: type 2 Qualified Code(s): E11.65 - Type 2 diabetes mellitus with hyperglycemia; 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 (4) Thyroid disease: (5) Obesity: (6) End stage renal disease on dialysis: (7) H/O staphylococcal septicemia: (8) Infection of hemodialysis catheter: (9) Chronic back pain: (10) Headache: Qualifiers: Headache chronicity pattern: acute headache Headache type: unspecified Intractability: not intractable Qualified Code(s): R51.9 - Headache, unspecified (11) Acute and chronic respiratory failure with hypoxia: (12) TARA (obstructive sleep apnea): (13) Staphylococcus aureus bacteremia: (14) Acute hyperkalemia: (15) Metabolic acidosis: (16) Missed dialysis: (17) Uremia: (18) Respiratory syncytial virus: (19) HTN (hypertension): (20) Type 2 diabetes mellitus: (21) Elevated troponin: (22) Poor intravenous access: (23) Chronic osteomyelitis: Plan 64-year-old female with past medical history of end-stage renal disease on home hemodialysis presents to the ER because of worsening hypoxia, weakness due to missed home dialysis as caregiver is admitted to another hospital for respiratory failure found to have renal failure with metabolic acidosis, hyperkalemia and hypoxic respiratory failure due to RSV. Staphylococcus bacteremia: Persistent bacteremia. PICC line removed 12/30 permacath placement 01/01, Repeat cultures negative to date Continue cefazolin Patient will get long-term 6 weeks IV antibiotic therapy she will get antibiotics after dialysis sessions, through her dialysis catheter Hyperkalemia/metabolic acidosis/uremia/renal failure/hyponatremia: In setting of end-stage renal disease on home hemodialysis. Improved with dialysis in the hospital A-fib with RVR: Rate controlled. Continue with amiodarone 200 mg twice daily, home dose of metoprolol 25 mg twice daily Switch back to Eliquis after permacath placement Acute on chronic hypoxic respiratory failure: In setting of RSV bronchitis: Chronically on 2 L. Resolving. Most likely combination of congestive heart failure and RSV bronchitis. Antibiotic as above.. Continue with Pulmicort twice daily, DuoNeb every 6 hour Finished prednisone 40 mg daily for 5-day course. Type 2 diabetes mellitus: Euglycemic Elevated troponin: Most likely with concerns for demand ischemia. Negative cycle troponin. Echocardiogram shows poor echo windows with grossly normal LV functions. Hypertension: Goal blood pressure less than 140/90 mmHg. Takes hydralazine 50 mg 3 times daily, metoprolol 25 mg twice daily at home. For now we will continue with metoprolol. Will restart hydralazine as per blood pressures. IV hydralazine 10 mg every 4 hours as needed for systolic blood pressure more than 160 mmHg. Continue other chronic home medications including levothyroxine, pregabalin, Requip. Thrombocytopenia: Most likely in setting of RSV and sepsis. Continue to monitor. No sign of bleeding for now. Anemia of chronic disease: Required 1 unit PRBC 12/31 No active GI bleed Hemoglobin 7.8 today Analgesia: Home dose of [place], Tylenol as needed Glycemic control: Lantus 40 units twice daily, insulin sliding scale at moderate dose protocol Nutrition: Renal diabetic dialysis diet CODE STATUS: Full code. patient states she does not want her son to be the DPOA. She would want Ms. Rodriguez who is also a nurse to be the DPOA. Ms. Rodriguez is at bedside and is agreeable. Will request her to give the number to the nursing staff so that it can be added in the chart. Will request case management for DPOA paperwork. Patient is agreeable. PUD prophylaxis: Protonix DVT prophylaxis: Start back on Eliquis Discharge planning: Home with caregiver versus SNF depending on clinical picture going forward. Patient's is the primary caregiver and does home dialysis as admitted at another hospital. Can plan for discharge to home with home health and outpatient dialysis set up while comes back home. Patient likely will be discharged in next 24 hours, if she does not get approval for nursing placement, patient is okay going home with home health services PDMP PDMP Reviewed: Not Reviewed Attestations 2 Medical Necessity Statement*: Continue medical management possible discharge by tomorrow Diagnoses Diastolic heart failure I50.30 Atrial fibrillation with RVR I48.91 Diabetes E11.65; Z79.4 Diabetes mellitus complication status: with hyperglycemia Diabetes mellitus terminologist insulin use: with terminologist use Diabetes mellitus type: type 2 Thyroid disease E07.9 Obesity E66.9 End stage renal disease on dialysis N18.6; Z99.2 H/O staphylococcal septicemia Z86.19 Infection of hemodialysis catheter T82.7XXA Chronic back pain M54.9; G89.29 Headache R51.9 Headache chronicity pattern: acute headache Headache type: unspecified Intractability: not intractable Acute and chronic respiratory failure with hypoxia J96.21 TARA (obstructive sleep apnea) G47.33 Staphylococcus aureus bacteremia R78.81; B95.61 Acute hyperkalemia E87.5 Metabolic acidosis E87.20 Missed dialysis Uremia N19 Respiratory syncytial virus B33.8 HTN (hypertension) I10 Type 2 diabetes mellitus E11.9 Elevated troponin R79.89 Poor intravenous access Z78.9 Chronic osteomyelitis M86.60
[2025-01-01] MEDS: lidocaine-epi 2% PF 1:200,000 20 mL SDV XX (12:18)
[2025-01-01] MEDS: heparin, porcine 1,000 unit/mL INJ 10 mL 6000 UNIT IRRIGATION (12:30)
--- NOTE | 2025-01-01 12:45 | XR_ITS ---
WS: [id number] XR chest 1V portable [id number] REASON FOR EXAM: POSTOP PERMACATH FINDINGS: Left IJ dialysis catheter with the tip in the distal superior vena cava. Lungs are hypoexpanded. Central vascular congestion and presumed interstitial edema. No pneumothorax. XR/XR chest 1V portable [id number] IMPRESSION: Left internal jugular dual-lumen dialysis catheter placement as above.
--- NOTE | 2025-01-01 12:48 | PM.OP ---
Operative Report Date of procedure: January 01, 2025 Pre-op diagnosis: End-stage renal disease on hemodialysis Post-op diagnosis: same Procedure done: Permacath placement Intraoperative interpretation of fluoroscopy Implants: 27 cm permacath Specimens removed/disposition: None Surgeon: Evan Rooney DO Anesthesia: MAC and Local Estimated blood loss (mL): 5 Complications: None apparent Brief History: This is a very pleasant 64-year-old female on regular hemodialysis. She had bacteremia and her previous permacath was removed. Blood cultures have been negative and she is ready for a new PermCath. The risks and benefits were explained and documented. Procedure: Patient was taken to the operating room and placed supine on the operating room table. All bony prominences were padded. He was given IV sedation and monitored throughout the case by the anesthesia personnel. SCDs were placed and turned on. The arms were tucked to the side. Patient received Vancomycin preoperatively IV. The bilateral chest wall was prepped and draped in usual sterile fashion using chlorhexidine base prep. Sterile drapes were applied. We did procedure pause prior to beginning. An 18 gauge needle was placed in the left internal jugular vein under ultrasound guidance. Dark, nonpulsatile blood was aspirated. A guidewire was placed through the needle centrally toward the atrial/vena caval junction. Fluoroscopy visualized good placement without obvious pneumothorax. The needle was removed and the guidewire was clipped to the drape with a hemostat. Further local anesthetic was infiltrated in the soft tissues of the left chest wall and a #15 blade was used to make a vertical skin incision. A #15 blade was used to make a small skin jorge around the guidewire insertion area. The permacath tubing was tunneled through the subcutaneous tissues up to the needle insertion location. Serial dilators were used to serially dilate over the guidewire . A dilator with a peel-away sheath was placed over the guidewire and placed centrally. The guidewire was removed as well as the dilator and the permacath was fed into the split sheath. The split sheath was removed. Both ports were aspirated to reveal dark blood and were flushed with saline only as the patient has a heparin allergy. final fluoroscopy visualization showed no kink in the catheter and the tip of the permacath tubing near the atrial/vena caval junction. Both skin incisions were thoroughly irrigated and suctioned dry. Meticulous hemostasis noted. The internal jugular access site was closed with 4-0 Vicryl in a subcuticular fashion. The skin overlying the permacath was closed in a similar manner. The permacath was then sutured into place using 2-0 nylon in a simple interrupted fashion. skin glue was applied as a topical dressing. This was allowed to dry. Patient was awakened from anesthesia and transferred via her cart to the recovery room in stable condition. All needle, sponge, and instrument counts were correct per the operating personnel x2 counts.
--- NOTE | 2025-01-01 13:02 | ANE.PACU2 ---
Inpatient post-anesthesia follow up: Airway intact: Yes Vital signs: Temperature 96.8 F Pulse Rate 66 Respiratory Rate 16 Blood Pressure 127/44 Pulse Oximetry 94 Oxygen Delivery Me thod Room Air Oxygen Flow Rate 2 Fraction of Inspir ed Oxygen Hydration adequate: Yes Nausea and vomiting: No Pain level: 1 Mental status: Baseline
--- NOTE | 2025-01-01 15:27 | PC.SOCIAL ---
IMM UPDATED IMM dated and initialed, copy given to patient and copy placed in chart
[2025-01-01 17:05] LABS: Glucose Point of Care 136 mg/dL (70-110)
[2025-01-01] MEDS: pantoprazole 40 mg SDV IVP (17:54)
--- NOTE | 2025-01-01 18:42 | PC.NURSE ---
Dialysis nurse stated patient was unable to tolerate full dialysis due to low pressures. Stated last pressure was 70/40. Patient deaccessed and taken to room. This nurse went to check on patient only giving protonix, and colace holding the metoprolol, amiodorone, and hydrocodone due to report of dialysis nurse. Reassessed blood pressure 45 minutes after patient got to room and pressures were obtained on left upper arm with large cuff and was 163/81. Patient sitting up eating at this time.
[2025-01-01] MEDS: ceFAZolin 1,000 mg SDV 1000 MG IVP (20:08)
[2025-01-01 20:15] LABS: Glucose Point of Care 266 mg/dL (70-110)
[2025-01-01] MEDS: insulin lispro 100 unit/1 mL SUBCUT (20:45)
[2025-01-02] VITALS (9 sets, daily range): BP systolic 113–159; BP diastolic 46–66; PULSE 71–83; RESP 15–20; TEMP 36.8–37.6; O2SAT 90–96
[2025-01-02] MEDS: ipratropium-albuterol 3 mL Neb INHALATION ×3 (03:03→13:36)
[2025-01-02] MEDS: HYDROcodone-acetaminophen 7.5-325 mg Tablet 1 TAB PO ×2 (05:43→12:11)
[2025-01-02 06:11] LABS: Basophils % 0.2 %; Eosinophils # 0.2 10^3/uL (0.0-0.8); Eosinophils % 1.7 %; Hematocrit 23.4 % (36-47); Lymphocytes # 1.9 10^3/uL (0.8-4.8); Lymphocytes % 20.3 %; Mean Corpuscular HGB Conc 31.6 g/dL (30-55); Mean Corpuscular Hemoglobin 30.5 pg (27-33); Mean Corpuscular Volume 96.3 fl (85-98); Mean Platelet Volume 10.7 fL (7.4-10.4); Monocytes # 1.1 10^3/uL (0.2-0.9); Monocytes % 11.5 %; Neutrophils # 5.55 10^3/uL (1.8-7.7); Neutrophils % 60.5 %; Nucleated Red Blood Cells % 0 %; Platelet Count 115 10^3/cmm (157-399); Red Blood Count 2.43 10^6/uL (3.85-5.65); Red Cell Distribution Width 14.6 % (12.1-15.1); White Blood Count 9.18 10^3/uL (3.29-11.43)
[2025-01-02 06:17] LABS: Glucose Point of Care 97 mg/dL (70-110)
[2025-01-02 06:28] LABS: Alanine Aminotransferase < 5 U/L (0-33); Albumin Level 2.5 g/dL (3.5-5.2); Alkaline Phosphatase 201 U/L (35-105); Anion Gap 19.1 (5-19); Aspartate Amino Transferase 13 U/L (0-32); Blood Urea Nitrogen 43 mg/dL (8-23); Calcium 7.7 mg/dL (8.5-10.5); Carbon Dioxide 25 mmol/L (22-29); Chloride 98 mmol/L (98-107); Creatinine Clr Calc Pharmacy 12.6999; Globulin 3.8 g/dL (1.3-4.6); Glomerular Filtration Rate 7.6 mL/min (90-130); Glucose 86 mg/dL (65-115); Magnesium 2.1 mg/dL (1.7-2.3); Osmolality Calculated 296 mOsm/kg (285-295); Phosphorus 4.2 mg/dL (2.5-4.5); Potassium 4.1 mmol/L (3.5-5.1); Sodium 138 mmol/L (136-145); Total Bilirubin 0.3 mg/dL (0.15-1.2); Total Protein 6.3 g/dL (6.6-8.7)
[2025-01-02 06:41] LABS: Slide Review Slide Review Perform
[2025-01-02] MEDS: budesonide 0.5 mg/2 mL Neb INHALATION (07:34)
[2025-01-02] MEDS: sevelamer 800 mg Tablet 1600 MG PO (08:08)
[2025-01-02] MEDS: amiodarone 200 mg Tablet PO (08:10)
[2025-01-02] MEDS: ropinirole 0.25 mg Tablet PO ×2 (08:10→15:19)
[2025-01-02] MEDS: calcitriol 0.25 mcg Capsule PO (08:10)
[2025-01-02] MEDS: levothyroxine 112 mcg Tablet PO (08:10)
[2025-01-02] MEDS: docusate sodium 100 mg Capsule PO (08:11)
[2025-01-02] MEDS: nystatin powder 15 gm Btl 1 APPLIC TOPICAL (08:15)
[2025-01-02] MEDS: insulin glargine 100 units/1 mL 40 UNIT SUBCUT (08:46)
[2025-01-02] MEDS: pregabalin 25 mg Capsule PO (08:46)
--- NOTE | 2025-01-02 09:29 | P.PN_ITS ---
Subjective 2 Subjective: feels better. s/p new dialysis catheter yesterday. feels well. no n/v/f/c/had. improved MS. decreased SOB Medications: Reviewed: Yes Medication Review Details: Current Medications Acetaminophen (Acetaminophen 325 Mg Tablet) 650 mg PO Q6H PRN PRN Reason: Mild/Mod Pain Or Temp >/= 101 Hydrocodone Bitart/Acetaminophen (Hydrocodone-Acetaminophen 7.5-325 Mg Tablet) 1 tab PO Q6H NELIA Last Admin: 01/02/25 05:43 Dose: 1 tab Albuterol/Ipratropium (Ipratropium-Albuterol 3 Ml Neb) 3 ml INHALATION Q6H.RESP NELIA Last Admin: 01/02/25 07:34 Dose: 3 ml Alprazolam (Alprazolam 0.5 Mg Tablet) 0.5 mg PO BID PRN PRN Reason: ANXIETY Last Admin: 12/26/24 18:41 Dose: 0.5 mg Amiodarone HCl (Amiodarone 200 Mg Tablet) 200 mg PO BID NELIA Last Admin: 01/02/25 08:10 Dose: 200 mg Apixaban (Apixaban 5 Mg Tablet) 5 mg PO BID@0900,2100 [facility] Budesonide (Budesonide 0.5 Mg/2 Ml Neb) 0.5 mg INHALATION BID.RESPIRATORY [facility] Last Admin: 01/02/25 07:34 Dose: 0.5 mg Calcitriol (Calcitriol 0.25 Mcg Capsule) 0.25 mcg PO DAILY NELIA Last Admin: 01/02/25 08:10 Dose: 0.25 mcg Cefazolin Sodium (Cefazolin 1,000 Mg Sdv) 1,000 mg IVP Q24H NELIA; Protocol Last Admin: 01/01/25 20:08 Dose: 1,000 mg Docusate Sodium (Docusate Sodium 100 Mg Capsule) 100 mg PO BID [facility] Last Admin: 01/02/25 08:11 Dose: 100 mg Ergocalciferol (Ergocalciferol (Vitamin D2) 50,000 Unit Capsule) 50,000 unit PO Q7D NELIA Stop: 01/15/25 11:11 Last Admin: 12/31/24 11:37 Dose: 50,000 unit Glucagon (Glucagon 1 Mg/Ml Kit 1 Ml) 1 mg IM ONCE PRN; Protocol PRN Reason: Adult Acute Hypoglycemia Nursing Prot. Hydralazine HCl (Hydralazine 20 Mg/Ml Inj 1 Ml) 10 mg IVP Q4H PRN PRN Reason: SBP More than 160 mmhg Dextrose (D5w) 500 mls @ 0 mls/hr IV ONCE PRN; Protocol PRN Reason: Adult Acute Hypoglycemia Prot Dextrose (D10w) 125 mls @ 750 mls/hr IV PRN PRN; Protocol PRN Reason: Adult Acute Hypoglycemia Nursing Protocol Dextrose (D10w) 250 mls @ 1,000 mls/hr IV PRN PRN; Protocol PRN Reason: Adult Acute Hypoglycemia Nursing Protocol Sodium Chloride (Sodium Chloride 0.9%) 1,000 mls @ 0 mls/hr IV .Q0M PRN PRN Reason: hypotension or symptomatic Sodium Chloride (Sodium Chloride 0.9%) 1,000 mls @ 0 mls/hr IV .Q0M PRN PRN Reason: hypotension or symptomatic Albumin Human (Albumin) 12.5 gm in 50 mls @ 60 mls/hr IV PRN PRN PRN Reason: Hypotension and/or symptomatic Insulin Glargine (Insulin Glargine 100 Units/1 Ml) 40 unit SUBCUT BID [facility] Last Admin: 01/02/25 08:46 Dose: 40 unit Insulin Human Lispro (Insulin Lispro 100 Unit/1 Ml) 0 unit SUBCUT WM&BEDTIME [facility]; Protocol Last Admin: 01/02/25 07:31 Dose: Not Given Lactulose (Lactulose Oral Liq 20 Gm/30 Ml Udc) 10 gm PO DAILY PRN; Protocol PRN Reason: Constipation (see protocol) Levothyroxine Sodium (Levothyroxine 112 Mcg Tablet) 112 mcg PO DAILY [facility] Last Admin: 01/02/25 08:10 Dose: 112 mcg Metoprolol Tartrate (Metoprolol Tartrate 25 Mg Tablet) 25 mg PO BID [facility] Last Admin: 01/01/25 19:40 Dose: 25 mg Morphine Sulfate (Morphine 4 Mg/Ml Sdv 1 Ml) 2 mg IVP Q4H PRN PRN Reason: SEVERE PAIN Last Admin: 12/28/24 15:33 Dose: 2 mg Nystatin (Nystatin Powder 15 Gm Btl) 1 applic TOPICAL BID [facility] Last Admin: 01/02/25 08:15 Dose: 1 applic Ondansetron HCl (Ondansetron 2 Mg/Ml Sdv 2 Ml) 4 mg IVP Q6H PRN PRN Reason: vomiting, or N/V if npo Last Admin: 12/27/24 07:58 Dose: 4 mg Pantoprazole Sodium (Pantoprazole 40 Mg Sdv) 40 mg IVP Q24H [facility] Last Admin: 01/01/25 17:54 Dose: 40 mg Pregabalin (Pregabalin 25 Mg Capsule) 25 mg PO DAILY [facility] Last Admin: 01/02/25 08:46 Dose: 25 mg Ropinirole HCl (Ropinirole 0.25 Mg Tablet) 0.25 mg PO TID [facility] Last Admin: 01/02/25 08:10 Dose: 0.25 mg Sevelamer Carbonate (Sevelamer 800 Mg Tablet) 1,600 mg PO TID [facility] Last Admin: 01/02/25 08:08 Dose: 1,600 mg Vitals/I&O/Wt Last Vital Signs Temp 98.8 F 01/02/25 07:39 Pulse 71 01/02/25 07:39 Resp 18 01/02/25 07:39 BP 132/46 01/02/25 07:39 Pulse Ox 90 01/02/25 07:39 O2 Del Method Nasal Cannula 01/02/25 07:39 O2 Flow Rate 2 01/02/25 07:37 01/01/25 01/02/25 01/02/25 22:59 06:59 14:59 Intake Total 1111.6 / 1161.6 240 / 1401.6 Output Total 766 / 766 Balance 345.6 / 395.6 240 / 635.6 Weight last 48 hrs Weight 121.472 kg Weight 121.291 kg Weight 119.5 kg Weight 114.577 kg Weight 114.351 kg Physical Exam 2 Narrative: Obese lady in bed vital signs noted using nasal cannula oxygen and o2=90% - comfortable HEENT normocephalic/atraumatic. Neck is supple Left chest wall permacath lungs -sounds improving. decreased basal dullness b/l Heart regular question overall per nurse Abdomen is soft positive bowel sounds. Extremities + b/l ankle edema. she does have bandages on her feet. bandage over ulcer- not unwrapped Neuro awake alert oriented x 3 and no asterixis. +temp dialysis catheter still in rt fe moral vein Urinary Catheter Management: [place]: Cath Placed During This Visit: yes, but has since been removed by the nurse Reason for Continuing Indwelling Catheter: Other Urinary Catheter Date of Insertion: 12/25/24 Urinary Catheter Time of Insertion: 15:45 Date Urinary Catheter Removed: 12/28/24 Time Urinary Catheter Discontinued: 20:57 Data 01/02/25 05:33 01/02/25 05:33 Micro: Microbiology 12/28/24 05:58 Blood Culture - Final Blood NO GROWTH AFTER 5 DAYS 12/28/24 05:53 Blood Culture - Final Blood NO GROWTH AFTER 5 DAYS A&P Assessment and plan (1) End stage renal disease on dialysis: 64 year old female with past medical history of end-stage renal disease on home hemodialysis, type 2 diabetes mellitus, staff epidermidis bacteremia, hypertension, diastolic heart failure chronically on anticoagulation with Eliquis, hypothyroidism was brought to the ER on dec 25, 2024 by her son from home because of worsening hypoxia, generalized weakness, difficulty breathing and poor mentation. 1. a fib w/ RVR as per medicine/ cardiology 2. eSRD- pt missed her HHD, as her is no longer able to perform her home hemodialysis -s/p new permacath yesterday. we used her permacath. -PLEASE REMOVE HER FEMORAL DIALYSIS CATHETER -patient has an outpatient [facility] spot for Monday. -renal okay for d/c -phos binder for phos of 6- improved -dec renvela to 800 tud 3. anemia- ferritin >1000, tsat 75%- NO MORE IRON. give epo TTS -thrombocytopenia is stable -please transfuse 1 unit prbc 4. a fib- on amiodarone. regarding a/c- as she is ESRD on HD. if on eliquis just for a fib- please decrease dose to 2.5 mg po bid 5.Staph aureus bacteremia - s/p removal of Permacath- she has a rt ij temp HD catheter -appreciate Dr Lu of ID- Patient is currently on cefazolin 1 gm iv daily. - total abx course to be 6 weeks from date of catheter removal (12/29-02/09) Cefazolin 2g iv three times a week after dialysis MRI of the thoracic spine completed, no signs of osteomyelitis discitis. -LAST + BLOOD CULTURES FROM 12/26/24. 6.replace vit d, level is 8, monitor pth of 286-repeat next month -normal tsh 7. RSV bronchitis improved 8. DM care per medicine 9. HTN- improved w/ hd seen and examined w/ RN- using A/V equipment pt consents to telehealth and to dialysis Plan MSSA bacteremia- on abx. s/p new permacath PDMP PDMP Reviewed: Not Reviewed Attestations 2 Medical Necessity Statement*: per hospitalist Time Spent in Patient Care: 16 - 35 minutes (>than 50% of time sp ent in counselling and/or direct pt care on unit) . Coding Level of Care Code Acute Code for Chg Fwd Diagnoses End stage renal disease on dialysis N18.6; Z99.2
[2025-01-02 10:59] LABS: Glucose Point of Care 103 mg/dL (70-110)
--- NOTE | 2025-01-02 12:31 | P.DS_ITS ---
Discharge Providers Date of Admission: 12/25/24 16:59 Date of Discharge: January 02, 2025 Attending Provider at Admission: Jovanni Ramires MD Attending Provider at Discharge: Ovi Adams MD Consults: Javad Villalobos MD Nephology Kwan Oliva MD Nephrology Di Lu MD Infectious Disease [facility] Surgery Derik Rowland MD Orthopedics Primary Care Provider: Lexis Ring MD Diagnoses at Discharge Discharge Diagnosis (1) End stage renal disease on dialysis: Details from hospital stay: Patient had been admitted on 12/25/2024 64 year old female with past medical history of end-stage renal disease on home hemodialysis, type 2 diabetes mellitus, staff epidermidis bacteremia, hypertension, diastolic heart failure chronically on anticoagulation with Eliquis, hypothyroidism was brought to the ER on dec 25, 2024 by her son from home because of worsening hypoxia, generalized weakness, difficulty breathing and poor mentation. Patient had infected dialysis catheter and a history of chronic osteomyelitis of her foot. The patient's no longer able to do home hemodialysis so she will go to outpatient dialysis Monday. She knows where to go Monday morning and is ready for discharge Status: Acute (2) Infection of hemodialysis catheter: Details from hospital stay: Patient is status post removal of permacath. She has a left chest IJ catheter now she was treated with 1 g of cefazolin daily while in the hospital and will continue 2 g IV 3 days a week postdialysis until 02/09/2025 per directions from ID Dr. Lu Status: Acute (3) Chronic osteomyelitis: Details from hospital stay: Continue with wound care. Patient was seen by the ORTHOPEDIC surgeon on this admission. The foot was not the source of the sepsis but may be related to the source of seeding of the dialysis catheter. Also home dialysis and failed technique may also be because of the hemodialysis catheter infection Status: Acute (4) Atrial fibrillation with RVR: Details from hospital stay: Patient will go home on decreased apixaban to 5 mg daily Status: Acute (5) Type 2 diabetes mellitus: Details from hospital stay: Insulin adjusted to 40 units continue on home prandial insulin dose Status: Acute (6) Staphylococcus epidermidis bacteremia: Details from hospital stay: Treated as above Status: Acute (7) Respiratory syncytial virus: Details from hospital stay: Resolved patient on additional steroid inhaler. She states that she never smoked herself but was exposed to smoking from age to 33 where she lives at home with her parents who smoked and subsequently took care of them until she moved out in her 30s Status: Acute Reason for Visit Reason for Visit: N/V Fever Brief History: Patient admitted with Staph aureus sepsis which was methicillin sensitive. She also had Klebsiella UTI. She had a history of right foot osteomyelitis but came in with respiratory distress. Patient's who typically did her dialysis was admitted to [facility] with respiratory failure from RSV. Patient herself came in with RSV as well Hospital Course Hospital Course Patient admitted with multiple chronic illness including end-stage renal disease on dialysis, diastolic heart failure with atrial fibrillation, obstructive sleep apnea, diabetes, right foot osteomyelitis, hypertension, chronic anticoagulation with Eliquis for atrial fibrillation came in with respiratory distress and admitted to ICU. She was requiring 4 L of oxygen typically at baseline 2 L of oxygen. Patient was found to have methicillin sensitive Staph aureus sepsis. Her right dialysis catheter was removed and her dialysis was performed via a right femoral catheter. Subsequent to that left tunneled cath was placed in the right femoral catheter removed. Documentation suggest that she had a failed left IJ attempt December 25, 2024 And a failed right femoral central line on same date Right femoral temporary dialysis catheter placed on December 29 Left IJ tunneled cath placed January 01, 2025 Physical Exam Narrative: General well-developed well-nourished morbidly obese female in no acute cardiopulmonary distress Mentation she is alert and oriented x 3 CV regular rate and rhythm Lungs crackles heard in the right lower lung field but this improved and nearly resolved with deep breaths and coughing Abdomen positive bowel sounds soft obese nontender Calves trace ankle edema Groin she has some oozing from the right post catheter removal site Urinary Catheter Management: Tejada: Cath Placed During This Visit: yes, but has since been removed by the nurse Reason for Continuing Indwelling Catheter: Other Urinary Catheter Date of Insertion: 12/25/24 Urinary Catheter Time of Insertion: 15:45 Date Urinary Catheter Removed: 12/28/24 Time Urinary Catheter Discontinued: 20:57 Discharge Data Studies Completed and Pending Completed Studies During Hospitalization Category Date Time Status CT angio chest w abd pel w con Stat Cat Scan 12/25/24 17:44 Completed CXRP [XR chest 1V portable [id number]] Routine Exams 12/26/24 07:34 Completed CXRP [XR chest 1V portable [id number]] Routine Exams 01/01/25 12:45 Completed FL fluoroscopy [id number] Routine Exams 01/01/25 11:26 Completed XR chest 1V portable [id number] Stat Exams 12/25/24 14:51 Completed XR foot RT min 3V* [id number] Routine Exams 12/26/24 12:14 Completed MR foot RT wo con* [id number] Routine MRI 12/26/24 09:17 Completed MR thoracic spin wo con* [id number] Routine MRI 12/28/24 09:00 Completed CV. echo complete* [id number] Routine Ultrasound 12/26/24 16:43 Completed Pending at discharge Category Date Time Status Blood Culture Stat Lab 12/29/24 19:40 Results Radiology Impressions Chest/Abdomen/Pelvis CT 12/25/24 17:44 IMPRESSION: 1. No pulmonary emboli. 2. Small right-sided pleural effusion. 3. No focal consolidation. IMPRESSION: 1. No bowel obstruction or inflammatory process associated with the bowel. 2. No free air or significant free fluid in the abdomen or pelvis. 3. The appendix is not visualized but there are no secondary signs of acute appendicitis. Foot MRI 12/26/24 09:17 IMPRESSION: Osteomyelitis lateral aspect base of the fifth metatarsal Foot X-Ray 12/26/24 12:14 Impression: 1. Erosion of the base of the right fifth metatarsal with underlying soft tissue defect suspicious for osteomyelitis. 2. Amputation of the right fourth and fifth toes and portions of the corresponding metatarsals. 3. Erosion of the ungual tuft of the distal phalanx of the right great toe. 4. Tarsal osteoarthritis. 5. Irregularity of posterior plantar surface of calcaneus. Thoracic Spine MRI 12/28/24 09:00 IMPRESSION: 1. Postsurgical changes from T8 through T11 with posterior spinal fusion hardware in place. Metallic artifact related to the orthopedic hardware limits evaluation. 2. Mild degenerative changes from T8-9 through T11-12 with small posterior disc bulges/herniations as described above. 3. Small right pleural effusion. 4. No evidence for discitis or osteomyelitis. Fluoroscopy 01/01/25 11:26 IMPRESSION: Dialysis catheter placement as above. Chest X-Ray 01/01/25 12:45 IMPRESSION: Left internal jugular dual-lumen dialysis catheter placement as above. Laboratory Results WBC 9.18 10^3/uL (3.29-11.43) 01/02/25 05:33 RBC 2.43 10^6/uL (3.85-5.65) L 01/02/25 05:33 Hgb 7.40 g/dL (11.27-16.99) L 01/02/25 05:33 Hct 23.4 % (36-47) L 01/02/25 05:33 MCV 96.3 fl (85-98) 01/02/25 05:33 MCH 30.5 pg (27-33) 01/02/25 05:33 MCHC 31.6 g/dL (30-55) 01/02/25 05:33 RDW 14.6 % (12.1-15.1) 01/02/25 05:33 Plt Count 115 10^3/cmm (157-399) L 01/02/25 05:33 MPV 10.7 fL (7.4-10.4) H 01/02/25 05:33 Neut % (Auto) 60.5 % 01/02/25 05:33 Lymph % (Auto) 20.3 % 01/02/25 05:33 Newton % (Auto) 11.5 % 01/02/25 05:33 Eos % (Auto) 1.7 % 01/02/25 05:33 Baso % (Auto) 0.2 % 01/02/25 05:33 Reticulocyte % (Auto) 2.9 % (0.5-2.0) H 12/28/24 16:47 Neut # (Auto) 5.55 10^3/uL (1.8-7.7) 01/02/25 05:33 Lymph # (Auto) 1.9 10^3/uL (0.8-4.8) 01/02/25 05:33 Newton # (Auto) 1.1 10^3/uL (0.2-0.9) H 01/02/25 05:33 Eos # (Auto) 0.2 10^3/uL (0.0-0.8) 01/02/25 05:33 Baso # (Auto) 0.0 10^3/uL (0.0-0.1) 01/02/25 05:33 Nucleated RBC % (auto) 0 % 01/02/25 05:33 Total Counted 100 (0-100) 12/31/24 01:26 Atypical Lymphs % Not Reportable 12/31/24 01: Segmented Neutrophils 79 % 12/31/24 01:26 Band Neutrophils Not Reportable 12/31/24 01:26 Lymphocytes (Manual) 10 % 12/31/24 01:26 Monocytes (Manual) 7.0 % 12/31/24 01:26 Absolute Monocytes 0.8 10^3/cmm (0.1-0.6) H 12/31/24 01:26 Eosinophils (Manual) 0 % 12/31/24 01: Absolute Eosinophils 0.0 10^3/cmm (0.0-0.7) 12/31/24 01: Basophils (Manual) 1.0 % 12/31/24 01: Absolute Basophils 0.1 10^3/cmm (0.0-0.2) 12/31/24 01: Myelocytes 3.0 % 12/31/24 01:26 Nucleated RBCs # 0.0 /100WBC 01/02/25 05:33 Platelet Estimate Decreased (Normal) L 12/31/24 01:26 Anisocytosis 1+ H 12/31/24 01:26 ESR 43 mm/hr (0-15) H 12/26/24 03:45 APTT 37.8 SECONDS (23.9-36.7) H 12/31/24 09:42 D-Dimer >= 20.00 ug/mLFEU (0-0.59) H 12/25/24 15:09 Specimen Type Arterial 12/25/24 15:19 Sample Site Brachial, left 12/25/24 15:19 ABG pH 7.30 (7.35-7.45) L 12/25/24 15:19 ABG pCO2 30.1 mmHg (35-45) L 12/25/24 15:19 ABG pO2 69.2 mmHg (80.0-100.0) L 12/25/24 15:19 ABG PO2/FiO2 Ratio 247 12/25/24 15:19 ABG HCO3 14.9 mmol/L (22-26) L 12/25/24 15:19 ABG O2 Saturation 93.1 12/25/24 15:19 ABG Base Excess -10.4 mmol/L (-2.0-2.0) L 12/25/24 15:19 Seun Test N/a 12/25/24 15:19 A-a O2 Gradient 11.8 mmHg (5-10) H 12/25/24 15:19 Hematocrit 26.1 % (37-47) L 12/25/24 15:19 Hgb O2 Saturation 90.2 % (95-100) L 12/25/24 15:19 Carboxyhemoglobin 1.7 %THgb (0.4-20.1) 12/25/24 15:19 Methemoglobin 1.3 % (0.4-1.5) 12/25/24 15:19 Total Hemoglobin 8.5 g/dL (12-16) L 12/25/24 15:19 Sodium 128.0 mmol/L (131-143) L 12/25/24 15:19 Potassium 7.0 mmol/L (3.5-5.0) H 12/25/24 15:19 Glucose 353.0 mg/dL (70-115) H 12/25/24 15:19 Ionized Calcium 1.0 mmol/L (1.1-1.4) L 12/25/24 15:19 O2 Delivery Device Nc 12/25/24 15:19 O2 Liters/Min 2.0 % 12/25/24 15:19 FiO2 28.0 % 12/25/24 15:19 Student Recruiter ID Broma 12/25/24 15:19 Sodium 138 mmol/L (136-145) 01/02/25 05:33 Potassium 4.1 mmol/L (3.5-5.1) 01/02/25 05:33 Chloride 98 mmol/L (98-107) 01/02/25 05:33 Carbon Dioxide 25 mmol/L (22-29) 01/02/25 05:33 Anion Gap 19.1 (5-19) H 01/02/25 05:33 BUN 43 mg/dL (8-23) H 01/02/25 05:33 Creatinine 5.6 mg/dL (0.5-0.9) H* 01/02/25 05:33 GFR Calculation 7.6 mL/min (90-130) L 01/02/25 05:33 Glucose 86 mg/dL (65-115) 01/02/25 05:33 POC Glucose 103 mg/dL (70-110) 01/02/25 10:55 Estimat Average Glucose 143 12/25/24 15:09 Hemoglobin A1c 6.6 % (4.0-6.0) H 12/25/24 15:09 Calculated Osmolality 296 mOsm/kg (285-295) H 01/02/25 05:33 Lactic Acid 2.4 mmol/L (0.5-2.2) H 12/25/24 15:09 Lactic Acid (Sepsis) 2.7 mmol/L (0.5-2.2) H 12/25/24 17:48 Calcium 7.7 mg/dL (8.5-10.5) L 01/02/25 05:33 Phosphorus 4.2 mg/dL (2.5-4.5) 01/02/25 05:33 Magnesium 2.1 mg/dL (1.7-2.3) 01/02/25 05:33 Iron 90 ug/dL (37-145) 12/26/24 03:45 TIBC 119 mcg/dl 12/26/24 03:45 % Saturation 75.6 % (20-50) H 12/26/24 03:45 Unsat Iron Binding 29 ug/dL (112-347) L 12/26/24 03:45 Ferritin > 1000 ng/mL (15-150) H 12/26/24 03:45 Total Bilirubin 0.3 mg/dL (0.15-1.2) 01/02/25 05:33 AST 13 U/L (0-32) 01/02/25 05:33 ALT < 5 U/L (0-33) 01/02/25 05:33 Alkaline Phosphatase 201 U/L (35-105) H 01/02/25 05:33 Troponin T Baseline 191 ng/L (0-10) H* 12/25/24 15:09 Troponin T 120 Minute 175.2 ng/L (0-10) H 12/25/24 17:48 Delta Troponin T -15.8 ABS# (0-10) L 12/25/24 17:48 Troponin T Hi Sens 6Hr 159.6 ng/L (0-10) H 12/25/24 21:50 Troponin T Hi Sens 6Hr Delta -31.4 ng/L (0-12) L 12/25/24 21:50 C-Reactive Protein 210.8 mg/L (0.0-4.9) H 12/26/24 03:45 Total Protein 6.3 g/dL (6.6-8.7) L 01/02/25 05:33 Albumin 2.5 g/dL (3.5-5.2) L 01/02/25 05:33 Globulin 3.8 g/dL (1.3-4.6) 01/02/25 05:33 Triglycerides 193 mg/dL (0-150) H 12/26/24 03:45 Cholesterol 116 mg/dL (0-200) 12/26/24 03:45 LDL Cholesterol, Calc 60 mg/dL (50-129) 12/26/24 03:45 HDL Cholesterol 17 mg/dL (60-100) L 12/26/24 03:45 LDL/HDL Ratio 3.53 RATIO (0.00-3.22) H 12/26/24 03:45 Cholesterol/HDL Ratio 6.82 mg/dL (0.0-4.40) H 12/26/24 03:45 Vitamin B12 1199 pg/mL (232-1245) 12/25/24 15:09 25-OH Vitamin D Total 8 ng/mL (30-100) L 12/30/24 02:11 Folate 14.6 ng/mL (4.8-37.3) 12/26/24 03:45 Procalcitonin 23.39 ng/mL (0-0.5) H 12/26/24 03:45 TSH 2.23 uIU/mL (0.27-4.20) 12/30/24 02:11 PTH Intact 286.0 pg/mL (15-65) H 12/30/24 02:11 Calcium (PTH Intact) 8.3 mg/dL (8.5-10.5) L 12/30/24 02:11 Urine Color Yellow (Yellow) 12/25/24 19: Urine Appearance Turbid (CLEAR) A 12/25/24 19:25 Urine pH 6.5 (5-7) 12/25/24 19:25 Ur Specific Pyrites 1.018 (1.005-1.030) 12/25/24 19:25 Urine Protein 3+ (Negative) A 12/25/24 19:25 Urine Glucose (UA) Negative (Normal) 12/25/24 19:25 Urine Ketones Trace (Negative) 12/25/24 19:25 Urine Blood Trace (Negative) A 12/25/24 19: Urine Nitrate Negative (Negative) 12/25/24 19:25 Urine Bilirubin Negative (Negative) 12/25/24 19: Urine Urobilinogen 1.0 mg/dL (Negative) 12/25/24 19:25 Ur Leukocyte Esterase 3+ (Negative) A 12/25/24 19:25 Urine RBC 0-4 /hpf (0-2) H 12/25/24 19:25 Urine WBC 80-100 /hpf (0-5) H 12/25/24 19:25 Ur Squamous Epith Cells 0-4 /hpf (0-5) H 12/25/24 19: Amorphous Sediment Not Reportable 12/25/24 19: Urine Bacteria 4+ /hpf (NONE) H 12/25/24 19:25 Ur Random Sodium 40 mmol/L 12/25/24 19:25 Ur Random Potassium 52 mmol/L 12/25/24 19:25 Ur Random Chloride 22 mmol/L 12/25/24 19:25 Urine HCG, Qual Negative (Negative) 12/26/24 19: Nasal MRSA (PCR) Not detected (Not Detecte) 12/28/24 03:36 Vancomycin Trough 12.2 ug/mL (10-15) 12/27/24 09:12 Random Vancomycin 13.3 ug/mL (20.0-40.0) L 12/29/24 04:36 Serum Ketones Negative (Negative) 12/25/24 15:09 Coronavirus (PCR) Negative (Negative) 12/25/24 15:12 Hep Bs Antigen Non-reactive (Nonreactive) 12/26/24 03:45 Hep Bs Antibody 79.7 (11.5-1000) 12/26/24 03:45 Hepatitis C Antibody Non-reactive (Nonreactive) 12/26/24 03:45 Influenza A (PCR) Negative (Negative) 12/25/24 15:12 Influenza Type B (PCR) Negative (Negative) 12/25/24 15:12 RSV (PCR) Positive (Negative) A 12/25/24 15:12 Blood Type O Positive 12/31/24 11:06 Rho(D) Type Rh positive 12/31/24 11:06 Antibody Screen Negative 12/31/24 11:06 Crossmatch See Detail 12/31/24 11:06 Vitals Last Vital Signs Temp 98.2 F 01/02/25 11:34 Pulse 74 01/02/25 11:34 Resp 18 01/02/25 11:34 BP 159/63 01/02/25 11:34 Pulse Ox 90 01/02/25 11:34 O2 Del Method Nasal Cannula 01/02/25 11:34 O2 Flow Rate 2 01/02/25 07:37 Discharge Plan Discharge Patient Disposition: Home Health Service Condition: Stable Prescriptions: New amiodarone [Pacerone] 200 mg Tablet 200 mg PO BID Qty: 60 0RF sevelamer carbonate 800 mg Tablet 800 mg PO TID Qty: 100 0RF docusate sodium 100 mg Capsule 100 mg PO BID Qty: 100 0RF acetaminophen 325 mg Tablet 650 mg PO Q6H PRN (Reason: Mild/Mod Pain Or Temp >/= 101) Qty: 100 0RF budesonide 0.5 mg/2 mL Suspension For Nebulization 0.5 mg inhalation BID.RESPIRATORY Qty: 100 0RF cefazolin 1 gram Recon Soln 2,000 mg IVP Q24H Qty: 18 0RF Continued albuterol sulfate 2.5 mg /3 mL (0.083 %) solution for nebulization 2.5 mg inhalation Q6H ropinirole 0.25 mg tablet 0.25 mg PO TID hydrocodone-acetaminophen 7.5-325 mg tablet 1 - 2 tab PO .Q4-6H hydralazine 50 mg tablet 50 mg PO TID Antoni Caps 1 mg capsule 1 cap PO DAILY ipratropium bromide 42 mcg (0.06 %) spray,non-aerosol 2 spray INTRANASAL TID calcitriol 0.25 mcg capsule 0.25 mcg PO DAILY Rx Instructions: take with 0.5mcg levothyroxine 112 mcg tablet 112 mcg PO DAILY insulin lispro 100 unit/mL insulin pen 22 unit SUBCUT .WITH EACH MEAL Rx Instructions: INJECT 22 UNITS WITH EACH MEAL. INCREASE BY 2-10 UNITS NEEDED FOR HIGH BLOOD SUGAR DIRECTED. MAXIMUM 150 UNITS DAILY. metoprolol tartrate 25 mg tablet 25 mg PO BID pregabalin 25 mg capsule 25 mg PO DAILY Ozempic 2 mg/dose (8 mg/3 mL) pen injector 2 mg SUBCUT Q7D Changed Eliquis 5 mg tablet 5 mg PO 1XD Qty: 1 0RF insulin glargine U-300 conc [Toujeo Max U-300 SoloStar] 300 unit/mL (3 mL) insulin pen 40 unit SUBCUT BID Qty: 1 0RF Discontinued calcitriol 0.5 mcg capsule 0.5 mcg PO DAILY ropinirole 0.5 mg tablet 0.5 mg PO TID Discharge Orders: Discharge Order (Routine); Ordered 01/02/25 Ordered By: Ovi Adams Referrals: [facility] [Outside] (Needs to be there at 720am on Monday01/04/25) [facility] [Outside] Lexis Ring MD [Primary Care Provider] - 01/17/25 11:00 am Discharge Diet: Usual diet Discharge Activity: Increase activity as tolerated Patient Instructions: Acute Wound Care (DC), Opioid Safety, Post Anesthesia Care Activity Restrictions/Additional Instructions: Wound care instructions: Cleanse with normal saline. Pat dry. Apply hydrafera blue cut to size of wound bed. Cover with covederm or wrap with kerlix and secure with tape. Change dressing daily. Weigh self daily Stay with your fluid restriction Will be recieving RAUL Cefazolin 3 times a week after dialysis treaments. Discharge Attestations Time Spent in Discharge Care*: greater than 30 min Status at Discharge: Cognitive status at discharge: cognitively intact , Behavioral status at discharge: cooperative , Quality Metrics Clinical Quality Measures [ No reported AMI, CVA or VTE this stay] Coding Level of Care Code Acute Code for Chg Fwd Diagnoses End stage renal disease on dialysis N18.6; Z99.2 Infection of hemodialysis catheter T82.7XXA Chronic osteomyelitis M86.60 Atrial fibrillation with RVR I48.91 Type 2 diabetes mellitus E11.9 Staphylococcus epidermidis bacteremia R78.81 Respiratory syncytial virus B33.8
--- NOTE | 2025-01-02 13:02 | P.PN_ITS ---
Subjective 2 Subjective: Patient seen and examined. PermCath used successfully. No complaints Vitals/I&O/Wt Last Vital Signs Temp 98.2 F 01/02/25 15:54 Pulse 74 01/02/25 15:54 Resp 18 01/02/25 15:54 BP 159/63 01/02/25 15:54 Pulse Ox 96 01/02/25 15:54 O2 Del Method Nasal Cannula 01/02/25 13:37 O2 Flow Rate 2 01/02/25 13:37 01/02/25 01/02/25 01/02/25 06:59 14:59 22:59 Intake Total 240 / 1401.6 360 / 360 Balance 240 / 635.6 360 / 360 Weight last 48 hrs Weight 267 lb 12.8 oz Weight 267 lb 6.4 oz Weight 263 lb 7.238 oz Weight 252 lb 9.6 oz Weight 252 lb 1.6 oz Physical Exam 2 Narrative: General: No acute distress, awake alert and oriented x 3 Skin: Permacath in place without erythema or exudate Urinary Catheter Management: Tejada: Cath Placed During This Visit: yes, but has since been removed by the nurse Reason for Continuing Indwelling Catheter: Other Urinary Catheter Date of Insertion: 12/25/24 Urinary Catheter Time of Insertion: 15:45 Date Urinary Catheter Removed: 12/28/24 Time Urinary Catheter Discontinued: 20:57 Data 01/02/25 05:33 01/02/25 05:33 Micro: Microbiology 12/28/24 05:58 Blood Culture - Final Blood NO GROWTH AFTER 5 DAYS 12/28/24 05:53 Blood Culture - Final Blood NO GROWTH AFTER 5 DAYS A&P Assessment and plan (1) Staphylococcus aureus bacteremia: (2) End stage renal disease on dialysis: Plan Last 2 sets of blood cultures have been negative to date Status post permacath placement DC temporary hemodialysis catheter Medical management per hospitalist PDMP PDMP Reviewed: Not Reviewed Attestations 2 Medical Necessity Statement*: per primary Coding Level of Care Code 25992 Diagnoses Staphylococcus aureus bacteremia R78.81; B95.61 End stage renal disease on dialysis N18.6; Z99.2
--- NOTE | 2025-01-02 14:12 | PC.NURSE ---
Temporary dialysis catheter removed from right groin. Patient bled through first dressing applied. Applied more pressure and a pressure dressing applied. No saturation noted. IV removed with no incident noted at this time.
[2025-01-02] MEDS: sevelamer 800 mg Tablet PO (15:19)
== END 2025-01-02 15:55 | disposition home health service (06) | DRG 640 ==
LOC: ER 16:47 → ER IP 17:00 → ICU 20:01 → MEDSURG 12-27 16:41
PROVIDERS: Hospitalist; Internal Medicine; Internal Medicine Nephrology; Orthopaedic Surgery; Surgery; Admitting Provider Student in an Organized Health Care Education/Training Program; Emergency Provider Emergency Medicine; PCP Family Medicine; Visit Provider Internal Medicine
PROC: 05HN33Z Insertion of Infusion Device into Left Internal Jugular Vein, Percutaneous Approach (ICD-10-PCS; principal; 2025-01-01 13:00)
DX: E87.5 Hyperkalemia (principal); A41.01 Sepsis due to Methicillin susceptible Staphylococcus aureus; N18.6 End stage renal disease; J96.21 Acute and chronic respiratory failure with hypoxia; G93.41 Metabolic encephalopathy; T82.7XXA Infection and inflammatory reaction due to other cardiac and vascular devices, implants and grafts, initial encounter; I13.2 Hypertensive heart and chronic kidney disease with heart failure and with stage 5 chronic kidney disease, or end stage renal disease; M86.671 Other chronic osteomyelitis, right ankle and foot; I50.30 Unspecified diastolic (congestive) heart failure; N39.0 Urinary tract infection, site not specified; I24.89 Other forms of acute ischemic heart disease; Z68.42 Body mass index [BMI] 45.0-49.9, adult; E87.20 Acidosis, unspecified; E87.1 Hypo-osmolality and hyponatremia; Y82.8 Other medical devices associated with adverse incidents; E11.22 Type 2 diabetes mellitus with diabetic chronic kidney disease; E11.65 Type 2 diabetes mellitus with hyperglycemia; E11.69 Type 2 diabetes mellitus with other specified complication; Z99.2 Dependence on renal dialysis; Z91.158 Patient's noncompliance with renal dialysis for other reason; Z79.85 Long-term (current) use of injectable non-insulin antidiabetic drugs; Z79.4 Long term (current) use of insulin; I48.91 Unspecified atrial fibrillation; J20.5 Acute bronchitis due to respiratory syncytial virus; B96.1 Klebsiella pneumoniae [K. pneumoniae] as the cause of diseases classified elsewhere; G47.33 Obstructive sleep apnea (adult) (pediatric); G25.81 Restless legs syndrome; D64.9 Anemia, unspecified; L97.519 Non-pressure chronic ulcer of other part of right foot with unspecified severity; E03.9 Hypothyroidism, unspecified; D69.6 Thrombocytopenia, unspecified; E66.9 Obesity, unspecified; Z79.01 Long term (current) use of anticoagulants; Z89.421 Acquired absence of other right toe(s)
CPT/HCPCS: 36415; 36416; 36430; 36573; 36592; 36600; 51702; 71045; 71275; 72146; 73630; 73718; 74177; 76000; 80051; 80053; 80061; 80202; 81001; 81025; 82009; 82306; 82310; 82330; 82436; 82607; 82728; 82746; 82805; 82962; 83036; 83540; 83550; 83605; 83735; 83970; 84100; 84133; 84145; 84300; 84443; 84484; 85007; 85014; 85018; 85025; 85045; 85378; 85651; 85730; 86140; 86403; 86706; 86803; 86850; 86900; 86920; 87040; 87070; 87077; 87086; 87150; 87186; 87205; 87340; 87637; 90935; 93005; 93306; 94640; 94664; 96361; 96372; 96374; 96375; 97161; 97530; 99285; J0283; J0612; J0690; J0692; J1630; J1644; J1815; J1940; J2270; J2405; J2470; J2543; J2704; J2765; J2919; J3370; J3372; J7030; J7512; J7626; P9040; Q4081; Q5105

== ENCOUNTER 2025-08-24 20:09 | Inpatient (IN) | payer MEDICARE, SELFPAY ==
[2025-08-24] VITALS (10 sets, daily range): BP systolic 157–196; BP diastolic 57–91; PULSE 54–111; RESP 16–26; TEMP 36.4; O2SAT 88–97
--- OUTSIDE RECORDS SUMMARY | 2025-08-24 20:29 | XMS_ITS | Clinical Summary ---
Author Organization [facility] Address [address] [facility] Attn: Epic Prelude ADT STEPHEN YATES [id number] Care Team Providers Care Photovoltaic Technician Name Role Phone Art Rios MD Primary Care Provider [phone] Allergies Active Allergy Reactions Criticality Noted Date Comments Bumetanide Rash Low 05/12/2025 Diphenhydramine Hallucination,Deliri u m High 05/12/2025 Levofloxacin Rash Low 01/05/2020 Nsaids (Non-Steroidal Anti-Inflammatory Drug) Renal Dysfunctions Medium 01/05/2020 Piperacillin-Tazobactam Anaphylaxis,Itching High Sulfa (Sulfonamide Antibiotics) Unknown 05/12/2025 Sulfamethoxazole-Trimeth oprim Itching,Rash Low 05/12/2025 cant take because of kidneys Medications No known medications Encounters Date Type Department Care Team Description 08/12/2025 External Device Data [facility] Provider, Abstract 08/12/2025 External Device Data [facility] Provider, Abstract 08/12/2025 External Device Data [facility] Provider, Abstract 08/06/2025 External Device Data [facility] Provider, Abstract 07/09/2025 External Device Data [facility] Provider, Abstract 07/08/2025 External Device Data [facility] Provider, Abstract 07/08/2025 External Device Data [facility] Provider, Abstract 06/17/2025 External Device Data [facility] Provider, Abstract 06/10/2025 External Device Data [facility] Provider, Abstract 06/10/2025 External Device Data [facility] Provider, Abstract from Last 3 Months Social History Tobacco Use Types Packs/Day Years Used Date Smoking Tobacco: Never Alcohol Use Standard Drinks/Week Comments No 0 (1 standard drink = 0.6 oz pur e alcohol) Feeling Safe Answer Date Recorded Are you in a relationship wi th someone who hurts you emotionally and/or physically? No 05/12/2025 Comments Unknown Sex and Gender Information Value Date Recorded Sex Assigned at Not on file Legal Sex Female 12:45 PM [employer] Gender Identity Not on file Sexual Orientation Not on file Last Filed Vital Signs Vital Sign Reading Time Taken Comments Blood Pressure 195/95 05/12/2025 1:53 PM CDT Pulse 69 05/12/2025 1:53 PM CDT Temperature 37.1 C (98.7 F) 05/12/2025 12:39 PM CDT Respiratory Rate 16 05/12/2025 1:53 PM CDT Oxygen Saturation 96% 05/12/2025 1:53 PM CDT Inhaled Oxygen Concentration - - Weight 117 kg (257 lb 15 oz) 05/12/2025 12:39 PM CDT Height 162.6 cm (5' 4 ) 05/12/2025 12:39 PM CDT Body Mass Index 44.27 05/12/2025 12:39 PM CDT Plan of Treatment Health Maintenance Due Date Last Done Comments DIABETES ANNUAL FOOT EXAM 1976 DIABETES ANNUAL RETINAL EXAM 1976 DIABETES MICROALBUMIN ANNUAL SCREEN 1976 LDL CHOLESTEROL ANNUAL 1976 DTAP/TDAP/TD VACCINES (1 - Tdap) 1977 BREAST CANCER SCREENING 1998 COLORECTAL SCREENING 2003 Colorectal Cancer Screening 2003 FIT-DNA Q 3 years 2003 FIT/FOBT Q 1 year 2003 Flex Sig/CT Colonography Q 5 years 2003 RSV VACCINE (60+ or ) (1 - Risk 60-74 years 1-dose series) 2018 ZOSTER VACCINE (2 of 3) 01/20/2023 11/25/2022, 09/22 OSTEOPOROSIS SCREENING 2023 PNEUMOCOCCAL VACCINE 50+ YEA RS (3 of 3 - PCV20 or PCV21) 01/28/2025 01/29/2020, 11/09/2012 INFLUENZA VACCINE (#1) 2025 , 11/07/2022, 11/28/2019, Additional history exists COVID-19 Vaccine (4 - 2023-2 5 season) 2025 08/12/2024, 02/25/2021, 02/04/2021 DIABETES HBA1C Q 6 MONTHS 07/26/2025 01/23/2025 Insurance [facility] [id number] MEDICAID [place] Care Teams Photovoltaic Technician Relationship Specialty Start Date End Date Art Rios MD [address] [place] [address] PCP - General Family Practice 04/07/13
--- OUTSIDE RECORDS SUMMARY | 2025-08-24 20:29 | XMS_ITS | Clinical Summary ---
Author Organization [facility] Building Address [address] [place] [phone] Phone Care Team Providers Care Full Stack Php Developer Name Role Phone Art Rios MD Primary Care Provider [phone] Allergies Active Allergy Reactions Criticality Noted Date Comments Levofloxacin Rash Low 01/05/2020 Nsaids (Non-Steroidal Anti-Inflammatory Drug) Renal Dysfunctions Medium 01/05/2020 Medications oxybutynin chloride SR 24 hour (DITROPAN XL) 10 mg Oral TR24 Take 10 mg by mouth daily. Active lisinopril (PRINIVIL) 20 mg Oral tablet Take 20 mg by mouth daily. Active traMADol (ULTRAM) 50 mg Oral tablet Take 100 mg by mouth every 6 hours as needed. Active glipiZIDE SR 24 hour (GLUCOTROL XL) 10 mg Oral tablet Take 10 mg by mouth 2 times daily. Active rOPINIRole (REQUIP) 3 mg Oral Tab Take 3 mg by mouth daily at bedtime. Active rOPINIRole (REQUIP) 2 mg Oral Tab Take 2 mg by mouth daily. Active sulfamethoxazole -trimethoprim (BACTRIM DS) 800-160 mg Oral tablet Take 1 Tab by mouth 2 times daily. 14 Tab None 04/07/2013 Active penicillin V potassium (VEETID) 500 mg Oral tablet Take 1 Tab by mouth 4 times daily. 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 Gender Identity Not on file Sexual Orientation Not on file Last Filed Vital Signs Vital Sign Reading Time Taken Comments Blood Pressure 162/95 01/05/2020 9:26 AM ELECTRONIC DIE MAKER Pulse - - Temperature 35.9 C (96.7 F) 01/05/2020 9:26 AM ELECTRONIC DIE MAKER Respiratory Rate 18 01/05/2020 9:26 AM ELECTRONIC DIE MAKER Oxygen Saturation 96% 01/05/2020 9:26 AM ELECTRONIC DIE MAKER Inhaled Oxygen Concentration - - Weight 143 kg (315 lb 3.2 oz) 01/05/2020 6:47 AM ELECTRONIC DIE MAKER Height 162.6 cm (5' 4 ) 01/05/2020 6:47 AM ELECTRONIC DIE MAKER Body Mass Index 54.1 01/05/2020 6:47 AM ELECTRONIC DIE MAKER Plan of Treatment Health Maintenance Due Date Last Done Comments DTAP/TDAP/TD VACCINES (1 - Tdap) 1977 BREAST CANCER SCREENING 1998 COLORECTAL SCREENING 2003 Colorectal Cancer Screening 2003 FIT-DNA Q 3 years 2003 FIT/FOBT Q 1 year 2003 Flex Sig/CT Colonography Q 5 years 2003 ZOSTER VACCINE (1 of 2) 2008 PNEUMOCOCCAL VACCINE 50+ YEA RS (2 of 2 - PCV20 or PCV21) 01/28/2021 01/29/2020 OSTEOPOROSIS SCREENING 2023 INFLUENZA VACCINE (#1) 2025 RSV VACCINE (60+ or ) (1 - 1-dose 75+ series) 2033 Insurance CARE IMPROVEMENT PLUS [facility] MD ISHMAEL [id number] [facility] DUAL COMPLETE [facility] PPO D-SNP Care Teams Full Stack Php Developer Relationship Specialty Start Date End Date Art Rios MD [address] [place] [address] PCP - General Family Practice 04/07/13
--- NOTE | 2025-08-24 20:30 | ECG_ITS ---
[employer] 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1960 Requested By: Casimiro Becker Order Number: [id number] Reading MD: GALILEO ANVA Measurements Intervals [place] Rate: 57 P: 68 MA: 206 QRS: -2 QRSD: 88 T: 13 QT: 457 QTc: 446 Interpretive Statements SINUS BRADYCARDIA WITH OCCASIONAL SUPRAVENTRICULAR PREMATURE COMPLEXES POSSIBLE ANTERIOR MYOCARDIAL INFARCTION , PROBABLY OLD [30 ms Q WAVE IN V3/V4, OR R < 0.2 mV IN V4] Compared to ECG 12/25/2024 22:19:34 Myocardial infarct finding now present Atrial fibrillation no longer present T-wave abnormality no longer present Electronically Signed On 08-28-2025 16:59:15 CDT by GALILEO NAVA [id number]
--- NOTE | 2025-08-24 20:39 | CTR_ITS ---
PROCEDURE INFORMATION: Exam: CT Abdomen And Pelvis Without Contrast Exam date and time: 08/24/2025 9:09 PM Age: 65 years old Clinical indication: Nausea and vomiting; Abdominal pain; Generalized; Prior surgery; Surgery date: 6+ months; Surgery type: Gb. Appy. Hysterectomy. Spinal fusion. Diffuse abd pain with n/v/d. Esrd. ; Additional info: Vomiting diarrhea abdominal pain TECHNIQUE: Imaging protocol: Computed tomography of the abdomen and pelvis without contrast. Radiation optimization: All CT scans at this facility use at least one of these dose optimization techniques: automated exposure control; mA and/or kV adjustment per patient size (includes targeted exams where dose is matched to clinical indication); or iterative reconstruction. COMPARISON: MR thoracic spin wo con* [id number] 12/28/2024 5:44 PM RADIATION DOSE METRICS: Total DLP (mGy-cm): 1766.85 FINDINGS: Lungs: Bibasilar right greater than left airspace infiltrates. Heart: Cardiomegaly. Coronary arteries: Coronary artery atherosclerotic calcifications. Liver: Normal. No mass. Gallbladder and biliary ducts: Cholecystectomy. Pancreas: Normal. No ductal dilation. Spleen: Spleen enlarged at 14 cm. Adrenal glands: Normal. No mass. Kidneys and ureters: Perinephric narrowed bilaterally likely reflecting renal sufficiency. Stomach and bowel: Unremarkable. No obstruction. No mucosal thickening. Appendix: No evidence of appendicitis. Intraperitoneal space: Unremarkable. No free air. No significant fluid collection. Vasculature: Unremarkable. No abdominal aortic aneurysm. Lymph nodes: Unremarkable. No enlarged lymph nodes. Urinary bladder: Mild urinary bladder wall thickening likely due to nondistention, please correlate for cystitis. Reproductive: Unremarkable as visualized. Bones/joints: Surgical hardware in the spine. Soft tissues: Anasarca. Other findings: Small amount of nonspecific fluid in the pelvis. CT/CT abdomen pelvis wo con [id number] IMPRESSION: 1. Mild urinary bladder wall thickening likely due to nondistention, please correlate for cystitis. 2. Small amount of nonspecific fluid in the pelvis. 3. Cardiomegaly. 4. Coronary artery atherosclerotic calcifications. 5. Bibasilar right greater than left airspace infiltrates. 6. Anasarca. 7. Spleen enlarged at 14 cm. 8. Perinephric narrowed bilaterally likely reflecting renal sufficiency. 9. Cholecystectomy.
--- NOTE | 2025-08-24 20:39 | XRR_ITS ---
PROCEDURE INFORMATION: Exam: XR Chest Exam date and time: 08/24/2025 8:43 PM Age: 65 years old Clinical indication: Other: Nausea, vomiting, diarrhea; Prior surgery; Surgery date: 6+ months; Surgery type: T-spine fusion, dialysis cath TECHNIQUE: Imaging protocol: Radiologic exam of the chest. Views: 1 view. COMPARISON: CR XR chest 1V portable [id number] 01/01/2025 12:50 PM FINDINGS: Tubes, catheters and devices: Left-sided central venous catheter. Lungs: Bilateral mid to lower lung field atelectasis versus infiltrate. Pleural spaces: Trace bilateral pleural effusions. Heart/Mediastinum: Cardiomegaly. Bones/joints: Surgical hardware in the spine. XR/XR chest 1V portable [id number] IMPRESSION: 1. Cardiomegaly. 2. Bilateral mid to lower lung field atelectasis versus infiltrate. 3. Left-sided central venous catheter. 4. Trace bilateral pleural effusions. 5. Surgical hardware in the spine.
--- NOTE | 2025-08-24 20:58 | W.ED.NAVMDI ---
HPI - Nausea/Vomiting/Diarrhea General: Chief complaint: Nausea/Vomiting/Diarrhea Stated complaint: NAUSEA Time Seen by Provider: 08/24/25 20:14 History of Present Illness: Patient is a 65-year-old female with end-stage renal disease (ESRD) on hemodialysis for 5 years who presents with acute gastroenteritis symptoms. She reports onset of diarrhea and vomiting last week that was severe enough to prevent her from attending her scheduled dialysis session. She states she 'couldn't get out of bed' due to these symptoms. The patient continues to experience ongoing nausea, vomiting, and diarrhea at presentation. She denies fever, which she reports she 'doesn't usually run.' She denies abdominal pain but endorses nausea and states her 'stomach hurts.' She denies hematochezia. No one else at home has been sick. Patient reports she normally receives dialysis at [facility]. She was transported via ambulance where she reportedly received zofran and calcium. EMS noted bradycardia during transport. Related Data Home Medications ?Medication ?Instructions ?Recorded ?Confirmed albuterol sulfate 2.5 mg/3 mL 2.5 mg inhalation Q6H 12/25/24 12/25/24 (0.083 %) solution for nebulization calcitriol 0.25 mcg capsule 0.25 mcg PO DAILY 12/25/24 12/25/24 hydralazine 50 mg tablet 50 mg PO TID 12/25/24 12/25/24 hydrocodone 7.5 mg-acetaminophen 1 - 2 tab PO .Q4-6H 12/25/24 12/25/24 325 mg tablet insulin lispro 100 unit/mL 22 unit SUBCUT .WITH EACH MEAL 12/25/24 12/25/24 subcutaneous pen ipratropium bromide 42 mcg (0.06 2 spray intranasal TID 12/25/24 12/25/24 %) nasal spray levothyroxine 112 mcg tablet 112 mcg PO DAILY 12/25/24 12/25/24 metoprolol tartrate 25 mg tablet 25 mg PO BID 12/25/24 12/25/24 pregabalin 25 mg capsule 25 mg PO DAILY 12/25/24 12/25/24 ropinirole 0.25 mg tablet 0.25 mg PO TID 12/25/24 12/25/24 semaglutide 2 mg/dose (8 mg/3 mL) 2 mg SUBCUT Q7D 12/25/24 12/25/24 subcutaneous pen injector (Ozempic) vitamin B complex and vitamin C 1 cap PO DAILY 12/25/24 12/25/24 no.20-folic acid 1 mg capsule (Lapel Caps) Previous Rx's ?Medication ?Instructions ?Recorded acetaminophen 325 mg tablet 650 mg (2 x 325 mg) PO Q6H PRN 01/02/25 Mild/Mod Pain Or Temp >/= 101 #100 tabs amiodarone 200 mg tablet (Pacerone) 200 mg PO BID #60 tabs 01/02/25 apixaban 5 mg tablet (Eliquis) 5 mg PO 1XD #1 tab 01/02/25 budesonide 0.5 mg/2 mL suspension 0.5 mg (2 mL) inhalation 01/02/25 for nebulization BID.RESPIRATORY #100 mL cefazolin 1 gram solution for 2,000 mg IVP Q24H #18 ea 01/02/25 injection docusate sodium 100 mg capsule 100 mg PO BID #100 caps 01/02/25 insulin glargine U-300 conc 300 40 unit (0.1333 mL) SUBCUT BID #1 01/02/25 unit/mL (3 mL) subcutaneous pen mL (Toujeo Max U-300 SoloStar) sevelamer carbonate 800 mg tablet 800 mg PO TID #100 tabs 01/02/25 Allergies Allergy/AdvReac Type Severity Reaction Status Date / Time bumetanide Allergy Unknown Unknown Verified 08/24/25 20:23 sulfamethoxazole (From Allergy Unknown Unknown Verified 08/24/25 20:23 Bactrim) trimethoprim (From Bactrim) Allergy Unknown Unknown Verified 08/24/25 20:23 ceftriaxone Allergy ALGY-Difficulty Verified 08/24/25 22:07 Breathing levofloxacin (From Levaquin) Allergy ADR-Itching Verified 08/24/25 20:23 NSAIDS (Non-Steroidal Allergy Unknown Verified 08/24/25 20:23 Anti-Inflamma PFSH ED PFSH: Medical History Chronic ulcer of right foot Poor intravenous access Elevated troponin Missed dialysis Metabolic acidosis Respiratory syncytial virus Uremia Headache Acute hyperkalemia correction (current) use of opiate analgesic Pain management contract signed Lumbar stenosis with neurogenic claudication Seizure PRES (posterior reversible encephalopathy syndrome) RLS (restless legs syndrome) TARA (obstructive sleep apnea) Chronic antibiotic suppression Staphylococcus epidermidis bacteremia Diastolic heart failure H/O staphylococcal septicemia Hyperglycemia Cellulitis Thyroid disease Chronic back pain Renal failure HTN (hypertension) Obesity Surgical History (Updated 01/03/25 @ 00:00 by BLAS Bruner) 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 H/O: hysterectomy Arteriovenous fistula History of tonsillectomy History of cholecystectomy History of back surgery History of appendectomy History of adenoidectomy Family History Other Cancer Social History Smoking and tobacco/nicotine status: never used tobacco/nicotine Alcohol intake: never Substance/Drug Use: never Lives independently: Yes Household members: spouse Housing: House Marital status: Physical Exam Const: GENERAL APPEARANCE: cooperative and ill appearing; not frail appearing HENMT: COMMON NORMALS: normocephalic, atraumatic and Normal external nose present HEAD & SCALP: normocephalic and atraumatic FACE & SINUS: normal facial exam and face symmetric NOSE: Normal external nose present Eye: COMMON NORMALS: Equal, round and reactive pupils present and EOMs intact bilaterally PUPIL: Yes Equal, round and reactive pupils present Neck/C-Spine: GENERAL: Yes trachea midline Chest: CHEST: Yes Symmetrical chest wall rise Resp: COMMON NORMALS: normal respiratory effort, No retractions, No use of accessory muscles and clear to auscultation bilaterally AUSCULTATION: clear to auscultation bilaterally Cardio: COMMON NORMALS: regular rate and regular rhythm RATE: regular rate RHYTHM: regular rhythm GI: COMMON NORMALS: Normal to inspection, nondistended, normoactive bowel sounds present OTHER: mild diffuse tenderness Extremity: COMMON NORMALS: no pedal edema Neuro: [place] COMA SCALE: document GCS findings [place] coma scale eye opening: Spontaneous [place] coma scale verbal response: Orientated [place] coma scale motor response: Obey commands [place] coma scale total score: 15 SENSORY EXAM: Yes extremities (intact) Psych: COMMON NORMALS: speech normal SPEECH: Yes normal speech Skin: NARRATIVE SKIN EXAM: right foot chronic wound. X 2. Good granulation tissue. No active cellulitis. Smelly, but does not appear infected. Course Vital Signs: Vital signs: Vital Signs Temperature 97.5 F L 08/24/25 20:15 Pulse Rate 103 H 08/24/25 22:41 Respiratory Rate 23 H 08/24/25 22:41 Blood Pressure 177/57 08/24/25 22:08 Pulse Oximetry 96 08/24/25 22:41 Oxygen Delivery Me thod Nasal Cannula 08/24/25 22:41 Oxygen Flow Rate 3 08/24/25 22:41 MDM - Nausea/Vomiting/Diarrhea Medical Decision Making Patient's heart rate is 50-60 here. Slightly prolonged QT. Peaked T waves. Potassium is 6.2. Bicarbonate is 19. Creatinine is 9.8. Hemoglobin is 10.4. Chest x-ray shows bilateral lower lobe likely infiltrates, with effusion suggestive of fluid overload. She has some urinary bladder wall thickening by CT scan. No evidence of bowel obstruction, etc. Consulted nephrology. Recommendations are Kayexalate, bicarbonate drip, insulin/dextrose, calcium gluconate. She is given albuterol as well. They will dialyze in the morning. Hospitalist has seen the patient for admission. She will go to ICU. Lab Data 08/24/25 20:54 08/24/25 20:54 Radiology Impressions Abdomen/Pelvis CT 08/24/25 20:39 IMPRESSION: 1. Mild urinary bladder wall thickening likely due to nondistention, please correlate for cystitis. 2. Small amount of nonspecific fluid in the pelvis. 3. Cardiomegaly. 4. Coronary artery atherosclerotic calcifications. 5. Bibasilar right greater than left airspace infiltrates. 6. Anasarca. 7. Spleen enlarged at 14 cm. 8. Perinephric narrowed bilaterally likely reflecting renal sufficiency. 9. Cholecystectomy. Chest X-Ray 08/24/25 20:39 IMPRESSION: 1. Cardiomegaly. 2. Bilateral mid to lower lung field atelectasis versus infiltrate. 3. Left-sided central venous catheter. 4. Trace bilateral pleural effusions. 5. Surgical hardware in the spine. Laboratory Results WBC 7.35 10^3/uL (3.29-11.43) 08/24/25 20:54 RBC 4.02 10^6/uL (3.85-5.65) 08/24/25 20:54 Hgb 10.40 g/dL (11.27-16.99) L 08/24/25 20:54 Hct 34.2 % (36-47) L 08/24/25 20: MCV 85.1 fl (85-98) 08/24/25: MCH 25.9 pg (27-33) L 08/24/25 20: MCHC 30.4 g/dL (30-55) 08/24/25 20: RDW 16.5 % (12.1-15.1) H 08/24/25: Plt Count 130 10^3/cmm (157-399) L 08/24/25 20:54 MPV 10.1 fL (7.4-10.4) 08/24/25 20: Neut % (Auto) 79.1 % 08/24/25 20: Lymph % (Auto) 11.3 % 08/24/25 20: [place] % (Auto) 4.2 % 08/24/25: Eos % (Auto) 4.6 % 08/24/25: Baso % (Auto) 0.5 % 08/24/25: Neut # (Auto) 5.81 10^3/uL (1.8-7.7) 08/24/25 20:54 Lymph # (Auto) 0.8 10^3/uL (0.8-4.8) 08/24/25 20: [place] # (Auto) 0.3 10^3/uL (0.2-0.9) 08/24/25 20:54 Eos # (Auto) 0.3 10^3/uL (0.0-0.8) 08/24/25: Baso # (Auto) 0.0 10^3/uL (0.0-0.1) 08/24/25: Nucleated RBC % (auto) 0 % 08/24/25: Nucleated RBCs # 0.0 /100WBC 08/24/25 20: Sodium 134 mmol/L (136-145) L 08/24/25 20:54 Potassium 6.2 mmol/L (3.5-5.1) H 08/24/25 20:54 Chloride 96 mmol/L (98-107) L 08/24/25: Carbon Dioxide 19 mmol/L (22-29) L 08/24/25 20:54 Anion Gap 25.2 (5-19) H 08/24/25 20:54 BUN 97 mg/dL (8-23) H* D 08/24/25 20: Creatinine 9.8 mg/dL (0.5-0.9) H* 08/24/25 20:54 GFR Calculation 4.0 mL/min (90-130) L 08/24/25 20: Glucose 187 mg/dL (65-115) H 08/24/25 20: Calculated Osmolality 313 mOsm/kg (285-295) H 08/24/25 20:54 Lactic Acid 0.8 mmol/L (0.5-2.2) 08/24/25 20: Calcium 8.5 mg/dL (8.5-10.5) 08/24/25: Phosphorus 9.5 mg/dL (2.5-4.5) H* 08/24/25 20: Magnesium 2.8 mg/dL (1.7-2.3) H 08/24/25 20:54 Total Bilirubin 0.4 mg/dL (0.15-1.2) 08/24/25 20: AST 23 U/L (0-32) 08/24/25 20: ALT 29 U/L (0-33) 08/24/25: Alkaline Phosphatase 229 U/L (35-105) H 08/24/25 20: Creatine Kinase 63 U/L (26-192) 08/24/25 20: C-Reactive Protein 22.4 mg/L (0.0-4.9) H 08/24/25 20: Total Protein 7.7 g/dL (6.6-8.7) 08/24/25 20: Albumin 3.9 g/dL (3.5-5.2) 08/24/25 20: Globulin 3.8 g/dL (1.3-4.6) 08/24/25: Lipase 69 U/L (13-60) H 08/24/25 20:54 Urine Color Yellow (Yellow) 08/24/25 20:25 Urine Appearance Slightly cloudy (CLEAR) 08/24/25: Urine pH 6.5 (5-7) 10/05/25 20:25 Ur Specific [place] 1.015 (1.005-1.030) 08/24/25 20: Urine Protein 3+ (Negative) H 08/24/25 20: Urine Glucose (UA) 2+ (Normal) H 08/24/25 20: Urine Ketones Negative (Negative) 08/24/25 20: Urine Blood 2+ (Negative) H 08/24/25 20: Urine Nitrate Negative (Negative) 08/24/25: Urine Bilirubin Neg (Negative) 08/24/25: Urine Urobilinogen Norm mg/dL (Negative) 08/24/25 20:25 Ur Leukocyte Esterase 2+ (Negative) H 08/24/25: Urine RBC 10-15 /hpf (0-2) H 08/24/25: Urine WBC >100 /hpf (0-5) H 08/24/25 20: Ur Squamous Epith Cells 21-50 /hpf (0-5) H 08/24/25: Amorphous Sediment Not Reportable 08/24/25: Urine Bacteria 1+ /hpf (NONE) H 08/24/25 20:25 All radiology interpretation(s) finalized by discharge Critical Care Time Critical Care Time: Critical Care Time: Yes Total Critical Care Time: 35 Attestation: This case had a high probability of a clinically significant, sudden, or life threatening deterioration of this patient's condition which required my full and direct attention, intervention and personal management. Time is independent of any procedures performed. Discharge Plan Discharge Patient Disposition: Admitted As Inpatient Admit Provider: Chantale Savage Clinical Impression: ESRD on dialysis, Acute hyperkalemia Condition: Fair Coding Level of Care Code ED Cnc Machinist for Aimee Gonzalez
[2025-08-24 21:02] LABS: Hematocrit 34.2 % (36-47); Hemoglobin 10.40 g/dL (11.27-16.99); Mean Corpuscular HGB Conc 30.4 g/dL (30-55); Mean Corpuscular Hemoglobin 25.9 pg (27-33); Mean Corpuscular Volume 85.1 fl (85-98); Nucleated Red Blood Cells % 0 %; Platelet Count 130 10^3/cmm (157-399); Red Blood Count 4.02 10^6/uL (3.85-5.65); White Blood Count 7.35 10^3/uL (3.29-11.43)
[2025-08-24 21:15] LABS: Glucose Urine UA 2+ (Normal); Specific Gravity, Urine 1.015 (1.005-1.030)
[2025-08-24 21:16] LABS: Nitrate Urine Negative (Negative); UA Manual Slide Review YES
[2025-08-24 21:17] LABS: Add Urine Microscopic? YES
[2025-08-24 21:32] LABS: Lactic Sepsis W/Reflex 0.8 mmol/L (0.5-2.2)
[2025-08-24 21:33] LABS: Alanine Aminotransferase 29 U/L (0-33); Albumin Level 3.9 g/dL (3.5-5.2); Alkaline Phosphatase 229 U/L (35-105); Anion Gap 25.2 (5-19); Aspartate Amino Transferase 23 U/L (0-32); Calcium 8.5 mg/dL (8.5-10.5); Carbon Dioxide 19 mmol/L (22-29); Chloride 96 mmol/L (98-107); Globulin 3.8 g/dL (1.3-4.6); Glucose 187 mg/dL (65-115); Lipase 69 U/L (13-60); Magnesium 2.8 mg/dL (1.7-2.3); Osmolality Calculated 313 mOsm/kg (285-295); Potassium 6.2 mmol/L (3.5-5.1); Sodium 134 mmol/L (136-145); Total Protein 7.7 g/dL (6.6-8.7)
[2025-08-24 21:35] LABS: Blood Urea Nitrogen 97 mg/dL (8-23); Creatinine Clr Calc Pharmacy 7.0697
[2025-08-24] MEDS: cefTRIAXone 1,000 mg SDV 1000 MG IVP (21:43)
[2025-08-24] MEDS: diphenhydrAMINE 50 mg/mL SDV 1mL 25 MG IVP (22:05)
[2025-08-24] MEDS: calcium gluconate 0.1 gm/mL 10% SDV 10mL 1 GM IVP (22:47)
[2025-08-24] MEDS: insulin regular-human 100 units/1 mL 10 UNIT IVP (22:48)
--- NOTE | 2025-08-24 22:52 | ECG_ITS ---
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 Measurements Intervals [place] Rate: 73 P: 28 [place]: 219 QRS: 1 QRSD: 91 T: 12 QT: 446 QTc: 493 Interpretive Statements SINUS RHYTHM WITH MARKED SINUS ARRHYTHMIA WITH FIRST DEGREE AV BLOCK POSSIBLE ANTERIOR MYOCARDIAL INFARCTION , PROBABLY OLD [30 ms Q WAVE IN V3/V4, OR R < 0.2 mV IN V4] Compared to ECG 12/25/2024 22:19:34 First degree AV block now present Myocardial infarct finding now present Atrial fibrillation no longer present T-wave abnormality no longer present Electronically Signed On 08-25-2025 23:27:30 CDT by Christian Contreras M.D. [email or web address]
--- NOTE | 2025-08-24 23:11 | P.HP_ITS ---
Providers/Chief Complaint 2 Admitting Physician: Chantale Savage MD Primary Care Provider: Lexis Ring MD Chief Complaint: NAUSEA History of Present Illness As per the patient and the previous retrospective notes, Berenice Pierce is a 65 year old female with past medical history of end-stage renal disease on Monday hemodialysis sessions through HD port/history of bilateral AV fistula and thrombosis currently following outpatient for mapping and graft of AV fistula creation on the right arm, hypertension, diabetes, history of osteomyelitis, obstructive sleep apnea degenerative lumbar disc, came with nausea and vomiting to the ER with mild chills without any high-grade fever since a week or so. As she was having weakness associated with nausea and vomiting she missed her dialysis sessions for a week. She did not report any altered mentation, syncope, presyncope, chest pain, chest chest pressure, abdominal pain,. However she reported that she was having also diarrhea non foul-smelling and nonbloody. Did not report any lower leg swellings. Did not report any orthopnea or PND or any shortness of breath. She had a chronic ulcer on the right foot plantar surface with granulation tissue however having slough and foul-smelling. No edema or redness or signs of active inflammation around the foot. She came to ER with above-mentioned symptoms and found to have potassium of 6.2. Urgent nephrology consultation was done to start her on dialysis with hyperkalemia cocktail management. Review of Systems 2 General: Reports: 10 or more systems reviewed and unremarkable except in HPI and below Medications/Allergies Home Medications ?Medication ?Instructions ?Recorded ?Confirmed ?Last Taken ?Type albuterol sulfate 2.5 mg/3 mL 2.5 mg inhalation Q6H 12/25/24 Unknown History (0.083 %) solution for nebulization calcitriol 0.25 mcg capsule 0.25 mcg PO DAILY 12/25/24 12/25/24 Unknown History hydralazine 50 mg tablet 50 mg PO TID 12/25/24 Unknown History hydrocodone 7.5 mg-acetaminophen 1 - 2 tab PO .Q4-6H 0 12/25/24 12/25/24 Unknown History 325 mg tablet insulin lispro 100 unit/mL 22 unit SUBCUT .WITH EACH M EAL 12/25/24 12/25/24 Unknown History subcutaneous pen ipratropium bromide 42 mcg (0.06 2 spray intranasal TI D 12/25/24 12/25/24 Unknown History %) nasal spray levothyroxine 112 mcg tablet 112 mcg PO DAILY 12/25/24 12/25/24 Unknown History metoprolol tartrate 25 mg tablet 25 mg PO BID 12/25/24 12/25/24 Unknown History pregabalin 25 mg capsule 25 mg PO DAILY 12/25/2404/13 Unknown History ropinirole 0.25 mg tablet 0.25 mg PO TID 12/25/2404/13 Unknown History semaglutide 2 mg/dose (8 mg/3 mL) 2 mg SUBCUT Q7D 04/1312/25/24 Unknown History subcutaneous pen injector (Ozempic) vitamin B complex and vitamin C 1 cap PO DAILY 5 12/25/24 Unknown History no.20-folic acid 1 mg capsule ([place] Caps) acetaminophen 325 mg tablet 650 mg (2 x 325 mg) PO Q6H PRN 01/02/25 Unknown Rx Mild/Mod Pain Or Temp >/= 101 #100 tabs amiodarone 200 mg tablet (Pacerone) 200 mg PO BID #60 tabs 01/02/25 Unknown Rx apixaban 5 mg tablet (Eliquis) 5 mg PO 1XD #1 tab 12/21 02/11 Unknown Rx budesonide 0.5 mg/2 mL suspension 0.5 mg (2 mL) inhala tion 01/02/25 Unknown Rx for nebulization BID.RESPIRATORY #100 mL cefazolin 1 gram solution for 2,000 mg IVP Q24H #18 ea 01/02/25 Unknown Rx injection docusate sodium 100 mg capsule 100 mg PO BID #100 caps 01/02/25 Unknown Rx insulin glargine U-300 conc 300 40 unit (0.1333 mL) GUILLEN BCUT BID #1 01/02/25 12/25/24 Unknown Rx unit/mL (3 mL) subcutaneous pen mL (Toujeo Max U-300 SoloStar) sevelamer carbonate 800 mg tablet 800 mg PO TID #100 t abs 01/02/25 Unknown Rx Allergies Allergy/AdvReac Type Severity Reaction Status Date / Time bumetanide Allergy Unknown Unknown Verified 08/24/25 20:23 sulfamethoxazole (From Allergy Unknown Unknown Verified 08/24/25 20:23 Bactrim) trimethoprim (From Bactrim) Allergy Unknown Unknown Verified 08/24/25 20:23 ceftriaxone Allergy ALGY-Difficulty Verified 08/24/25 22:07 Breathing levofloxacin (From Levaquin) Allergy ADR-Itching Verified 08/24/25 20:23 NSAIDS (Non-Steroidal Allergy Unknown Verified 08/24/25 20:23 Anti-Inflamma PFSH Acute 2 PFSH: Medical History (Updated 08/24/25 @ 22:57 by Casimiro Akbar DO) Chronic ulcer of right foot Poor intravenous access Elevated troponin Missed dialysis Metabolic acidosis Respiratory syncytial virus Uremia Headache Acute hyperkalemia 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 Pain management contract signed Lumbar stenosis with neurogenic claudication Seizure PRES (posterior reversible encephalopathy syndrome) RLS (restless legs syndrome) TARA (obstructive sleep apnea) Chronic antibiotic suppression Staphylococcus epidermidis bacteremia Diastolic heart failure H/O staphylococcal septicemia Hyperglycemia Cellulitis Thyroid disease Chronic back pain Renal failure HTN (hypertension) Obesity Surgical History (Updated 01/03/25 @ 00:00 by BLAS Bruner) 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 H/O: hysterectomy Arteriovenous fistula History of tonsillectomy History of cholecystectomy History of back surgery History of appendectomy History of adenoidectomy Family History Other Cancer Social History Smoking and tobacco/nicotine status: never used tobacco/nicotine Alcohol intake: never Substance/Drug Use: never Lives independently: Yes Household members: spouse Housing: House Marital status: Vitals/I&O/Wt Last Vital Signs Temp 97.5 F L 08/24/25 20:15 Pulse 103 H 08/24/25 22:41 Resp 23 H 08/24/25 22:41 BP 177/57 08/24/25 22:08 Pulse Ox 96 08/24/25 22:41 O2 Del Method Nasal Cannula 08/24/25 22:41 O2 Flow Rate 3 08/24/25 22:41 08/24/25 08/24/25 08/25/25 14:59 22:59 06:59 Intake Total 0 / 0 Balance 0 / 0 Weight last 48 hrs Weight 118.932 kg Physical Exam 2 Narrative: General: Alert and oriented, lying comfortably without any distress, able to speak in full sentences. HEENT: Normocephalic, atraumatic, grossly unremarkable exam Cardio: normal rate rhythm, normal S1-S2 without any murmurs, rubs, or gallops and JVD normal Respiratory: normal vascular breathing on auscultation however bases cannot be auscultated adequately due to morbid obesity and thick chest wall. GI: Abdomen soft, nontender, nondistended, normoactive bowel sounds present all 4 quadrants, Neuro: intact cranial nerves motor and sensory and cerebellar/coordination function without any focal neurological deficit Behavior: Appropriate and cooperative Extremities/skin: Adequate palpable pulses, mild trace edema with chronic skin changes chronic edema both legs more prominent on the right side up to mid shins. Patient having ulcer on the right plantar foot surface with granulation tissue at the base and slough mild foul-smelling. Data 08/24/25 20:54 08/24/25 20:54 Micro: Microbiology 08/24/25 20:55 Blood Culture - Preliminary Blood SPECIMEN COLLECTED 08/24/25 20:54 Blood Culture - Preliminary Blood SPECIMEN COLLECTED A&P Assessment and plan 1. Diabetic foot ulcer associated with secondary diabetes mellitus: - Patient having active ulcer on the right plantar foot surface, covered with slough and granulation tissue and foul-smelling -Possible reason of nausea vomiting and having chills without fever and feeling of weakness, the patient is overall immunocompromised therefore a full mount of fever spikes or leukocytosis may not be observed - Patient started on Vanco and Zosyn, lactate normal - MRSA swab - Blood cultures urine cultures - Podiatry consult in the morning for further management - ESR CRP 2. ESRD on dialysis: - Patient missed holding of 3 sessions of hemodialysis and having hyperkalemia -Nephrology on board and to initiate dialysis -Patient on calcitriol 0.25 mcg daily, sevelamer 800 mg 3 times daily and to start after medication sedation - Hyperkalemia management provided with calcium gluconate, monitor BMP every 4 hours 3. Acute hyperkalemia: - Patient provided calcium gluconate, insulin and albuterol nebs for hyperkalemia management - Monitor potassium level and repeat hyperkalemia management according to the levels - Frequent BMP monitoring every 3-4 hours - Telemetry monitoring 4. Atrial fibrillation with RVR: - Pa patient was having initial bradycardia on presentation in 50s and later on the heart rate went up to around 100s - Due to hyperkalemia could be the reason of her tachybradycardia and to start hemodialysis urgent -Telemetry monitoring -Medication reviewed amiodarone 200 mg twice daily, to resume after medication reconciliation. - Patient on apixaban 5 mg daily at home and to continue after reconciliation - Patient on metoprolol 25 mg twice daily and restart after medication reconciliation 5. HTN (hypertension): - Patient current blood pressure is in 150s systolic patient on hydralazine 50 mg 3 times daily plan to start after medication reconciliation 6. Type 2 diabetes mellitus: - HbA1c controlled and the patient is end-stage renal disease, insulin sliding scale - Patient on high-dose insulin glargine 40 units and HbA1c was 6.6% in December 2024 her HbA1c is tightly controlled therefore consider referral to PCP for adjusting further her insulin based on HbA1c 7. TARA (obstructive sleep apnea): Oxygen therapy/NIV as per protocol obstructive sleep apnea 8. Lumbar post-laminectomy syndrome: Patient on pregabalin 25 mg daily and to resume after medication reconciliation Adequate analgesia provided as needed for the pain 9. Thyroid disease: Patient on home dose levothyroxine 112 mcg daily, to start after reconciliation PDMP PDMP Reviewed: Not Reviewed Attestations 2 Medical Necessity Statement*: Berenice Pierce's hospital stay will require greater than 2 midnights for management of diabetic foot ulcer, hyperkalemia, end-stage renal disease missing dialysis and for the need of dialysis Time Spent in Patient Care: 16 - 35 minutes (>than 50% of time sp ent in counselling and/or direct pt care on unit) . Critical Care Time: The high probability of a clinically significant, sudden or life threatening deterioration, as referenced in this documentation, required my full and direct attention, intervention and personal management. The critical care time shown is in addition to time spent performing any reported separately billable procedures and includes the following: [x] Data and vital sign review and interpretation [x ] Patient assessment, examination and intervention [x] Medication orders and management [x] Patient/Family updates as able [x] Care Coordination and Documentation. Critical Care Time (min): 35 Coding Level of Care Code Critical Care >/= 30 minutes Diagnoses Diabetic foot ulcer associated with secondary diabetes mellitus E08.621; L97.509 ESRD on dialysis N18.6; Z99.2 Acute hyperkalemia E87.5 Atrial fibrillation with RVR I48.91 HTN (hypertension) I10 Type 2 diabetes mellitus E11.9 TARA (obstructive sleep apnea) G47.33 Lumbar post-laminectomy syndrome M96.1 Thyroid disease E07.9
[2025-08-25] VITALS (75 sets, daily range): BP systolic 119–202; BP diastolic 35–83; PULSE 55–113; RESP 13–34; TEMP 36.6–36.7; O2SAT 92–98
[2025-08-25 00:27] LABS: Calcium 8.3 mg/dL (8.5-10.5); Carbon Dioxide 16 mmol/L (22-29); Chloride 99 mmol/L (98-107); Glucose 123 mg/dL (65-115); Osmolality Calculated 315 mOsm/kg (285-295); Sodium 136 mmol/L (136-145)
[2025-08-25 00:31] LABS: Anion Gap 26.8 (5-19); Potassium 5.8 mmol/L (3.5-5.1)
[2025-08-25 00:33] LABS: Blood Urea Nitrogen 102 mg/dL (8-23); Creatinine Clr Calc Pharmacy 6.4151
[2025-08-25 00:38] LABS: CRP High Sensitivity Cardiac 3.350 mg/dL (0.0-0.3)
[2025-08-25] MEDS: piperacillin-tazobactam 3.375 GM in sodium chloride 0.9% (plus) 50 ML IV (01:34)
[2025-08-25 01:51] LABS: MRSA PCR OZH (swab) MRSA Detected (Not Detecte)
[2025-08-25] MEDS: heparin, porcine 1,000 unit/mL INJ 10 mL 1000 UNIT IV (02:00)
[2025-08-25 03:07] LABS: Anion Gap 21.7 (5-19); Blood Urea Nitrogen 77 mg/dL (8-23); Calcium 8.1 mg/dL (8.5-10.5); Carbon Dioxide 24 mmol/L (22-29); Chloride 98 mmol/L (98-107); Glucose 159 mg/dL (65-115); Osmolality Calculated 314 mOsm/kg (285-295); Potassium 4.7 mmol/L (3.5-5.1); Sodium 139 mmol/L (136-145)
[2025-08-25 03:19] LABS: Creatinine Clr Calc Pharmacy 8.6604
[2025-08-25] MEDS: heparin, porcine 1,000 unit/mL INJ 10 mL 10000 UNIT INTRACATH (04:35)
[2025-08-25] MEDS: HYDROcodone-acetaminophen 5-325 mg Tablet 1 TAB PO (04:38)
[2025-08-25 04:55] LABS: Hematocrit 30.2 % (36-47); Hemoglobin 9.50 g/dL (11.27-16.99); Mean Corpuscular HGB Conc 31.5 g/dL (30-55); Mean Corpuscular Hemoglobin 26.1 pg (27-33); Mean Corpuscular Volume 83.0 fl (85-98); Nucleated Red Blood Cells % 0 %; Platelet Count 113 10^3/cmm (157-399); Red Blood Count 3.64 10^6/uL (3.85-5.65); White Blood Count 6.43 10^3/uL (3.29-11.43)
[2025-08-25 05:15] LABS: Alanine Aminotransferase 25 U/L (0-33); Albumin Level 3.8 g/dL (3.5-5.2); Alkaline Phosphatase 203 U/L (35-105); Anion Gap 17.3 (5-19); Aspartate Amino Transferase 17 U/L (0-32); Blood Urea Nitrogen 44 mg/dL (8-23); Calcium 8.3 mg/dL (8.5-10.5); Carbon Dioxide 27 mmol/L (22-29); Chloride 98 mmol/L (98-107); Globulin 3.5 g/dL (1.3-4.6); Glucose 158 mg/dL (65-115); Osmolality Calculated 302 mOsm/kg (285-295); Potassium 3.3 mmol/L (3.5-5.1); Sodium 139 mmol/L (136-145); Total Protein 7.3 g/dL (6.6-8.7)
[2025-08-25 05:22] LABS: Creatinine Clr Calc Pharmacy 15.0615
[2025-08-25] MEDS: vancomycin 1,750 MG/350 ML PIGGYBACK 175 MG IV (05:45)
--- NOTE | 2025-08-25 07:03 | PHA.VACGOAL ---
Vancomycin Goal - Goal Vancomycin Indication:: SSTI - Therapy Day of therpy:: Day []of [] . Actual body weight (kg): 253 lb 8.505 oz - Data Labs: WBC 6.43 10^3/uL (3.29-11.43) 08/25/25 04:40 RBC 3.64 10^6/uL (3.85-5.65) L 08/25/25 04:40 Hgb 9.50 g/dL (11.27-16.99) L 08/25/25 04:40 Hct 30.2 % (36-47) L 08/25/25 04:40 MCV 83.0 fl (85-98) L 08/25/25 04:40 MCH 26.1 pg (27-33) L 08/25/25 04:40 MCHC 31.5 g/dL (30-55) 08/25/25 04:40 RDW 16.3 % (12.1-15.1) H 08/25/25 04:40 Sodium 139 mmol/L (136-145) 08/25/25 04:40 Potassium 3.3 mmol/L (3.5-5.1) L 08/25/25 04:40 Chloride 98 mmol/L (98-107) 08/25/25 04:40 Carbon Dioxide 27 mmol/L (22-29) 08/25/25 04:40 Anion Gap 17.3 (5-19) 08/25/25 04:40 BUN 44 mg/dL (8-23) H 08/25/25 04:40 Creatinine 4.6 mg/dL (0.5-0.9) H 08/25/25 04:40 GFR Calculation 9.5 mL/min (90-130) L 08/25/25 04:40 Treatment plan:: new consult Regimen:: HD PATIENT ON MWF SCHEDULE AT HOME. DIALYSIS INPATIENT TBD DIABETIC FOOT ULCER GOAL TROUGH 10-15 PT RECEIVED 1750 MG OVERNIGHT FOR FIRST DOSE WILL GIVE 1000 MG POST DIALYSIS
[2025-08-25] MEDS: ondansetron 2 mg/ML SDV 2 mL 4 MG IVP (07:59)
--- NOTE | 2025-08-25 08:18 | P.PN_ITS ---
Subjective 2 Subjective: Admitted overnight. Patient's labs appreciated. Sitting up in chair today. States she is feeling better but still feeling weak. Complaining of mild chills. Denies any nausea, vomiting. States she was having diarrhea recently but has resolved for now. Vitals/I&O/Wt Last Vital Signs Temp 98.1 F 08/25/25 02:56 Pulse 61 08/25/25 06:45 Resp 28 H 08/25/25 06:45 BP 170/57 08/25/25 06:45 Pulse Ox 97 08/25/25 06:45 O2 Del Method Nasal Cannula 08/25/25 00:41 O2 Flow Rate 3 08/24/25 22:41 08/24/25 08/25/25 08/25/25 22:59 06:59 14:59 Intake Total 0 / 0 1690 / 1690 Balance 0 / 0 1690 / 1690 Weight last 48 hrs Weight 115 kg Weight 117.5 kg Weight 118.932 kg Physical Exam 2 Narrative: General: Alert and oriented, lying comfortably without any distress, able to speak in full sentences. HEENT: Normocephalic, atraumatic, grossly unremarkable exam Cardio: normal rate rhythm, normal S1-S2 without any murmurs, rubs, or gallops and JVD normal Respiratory: normal vascular breathing on auscultation however bases cannot be auscultated adequately due to morbid obesity and thick chest wall. GI: Abdomen soft, nontender, nondistended, normoactive bowel sounds present all 4 quadrants, Neuro: intact cranial nerves motor and sensory and cerebellar/coordination function without any focal neurological deficit Behavior: Appropriate and cooperative Extremities/skin: Adequate palpable pulses, mild trace edema with chronic skin changes chronic edema both legs more prominent on the right side up to mid shins. Patient having ulcer on the right plantar foot surface with granulation tissue at the base and slough mild foul-smelling. Skin: OTHER: Data 08/25/25 04:40 08/25/25 04:40 Micro: Microbiology 08/24/25 20:55 Blood Culture - Preliminary Blood SPECIMEN COLLECTED 08/24/25 20:54 Blood Culture - Preliminary Blood SPECIMEN COLLECTED A&P Assessment and plan 1. Diabetic foot ulcer associated with secondary diabetes mellitus: Concern for possible sepsis on admission. History of Staphylococcus bacteremia due to infected hemodialysis catheter in the past. Chronic osteomyelitis. Patient does have new ulcers on the foot. Has been complaining of diarrhea. Most recently not on antibiotics. Does have history of C. difficile. Appreciate ESR, CRP. MRI foot with and without contrast to rule out osteomyelitis. Continue wound care as an outpatient. If concern for osteomyelitis will consult podiatry. Follow-up blood cultures. Check C. difficile. History of MSSA bacteremia, MRSA, Pseudomonas, strep from the wound along with Serratia. Empirically start patient on IV meropenem. Continue with vancomycin. Dose renally. 2. Missed dialysis: 3. ESRD on dialysis: Nephrology on board. Missed dialysis. Associated with hyperkalemia and metabolic acidosis on admission. Emergent dialysis overnight. Continue to monitor. Gets dialysis Monday, Monday, Monday. m gluconate, monitor BMP every 4 hours 4. Atrial fibrillation with RVR: Most likely in setting of respiratory failure due to diastolic heart failure overnight from missed dialysis and hypertensive emergency. Currently back in sinus rhythm. Continue with amiodarone. Change dose to 200 mg daily. Eliquis 5 mg twice daily. Continue with metoprolol 25 mg twice daily. Will uptitrate if heart rate continues to trend more than 100. 5. HTN (hypertension): Concerns for hypertensive emergency. Goal blood pressure less than 140/90 mmHg. Continue with above dose of metoprolol. Hydralazine 50 mg 3 times daily. Uptitrate as per goal blood pressure. IV hydralazine 10 mg every 4 hours as needed for systolic of more than 160. 6. Type 2 diabetes mellitus: Last A1c of 6.6 in December. Repeat A1c. Supposed to be on Lantus 40 units nightly along with lispro 22 units prior to each meal. Continue on sliding scale ACHS for now. Will add Lantus depending on blood sugars in next any 4 hours. 7. TARA (obstructive sleep apnea): Oxygen therapy/NIV as per protocol obstructive sleep apnea 8. Lumbar post-laminectomy syndrome: Patient on pregabalin 25 mg daily and to resume after medication reconciliation Adequate analgesia provided as needed for the pain 9. Thyroid disease: Patient on home dose levothyroxine 112 mcg daily, to start after reconciliation 10. Diastolic heart failure: 11. Acute hyperkalemia: Resolved. Plan: Renal dialysis diabetic diet Eliquis will be sufficient for DVT prophylaxis Protonix OPD prophylaxis PDMP PDMP Reviewed: Not Reviewed Attestations 2 Medical Necessity Statement*: Requires further hospitalization for management of missed dialysis in a patient with end-stage renal disease on hemodialysis, diabetic foot ulcer while osteomyelitis is ruled out Diagnoses Diabetic foot ulcer associated with secondary diabetes mellitus E08.621; L97.509 Missed dialysis ESRD on dialysis N18.6; Z99.2 Atrial fibrillation with RVR I48.91 HTN (hypertension) I10 Type 2 diabetes mellitus E11.9 TARA (obstructive sleep apnea) G47.33 Lumbar post-laminectomy syndrome M96.1 Thyroid disease E07.9 Diastolic heart failure I50.30 Acute hyperkalemia E87.5
[2025-08-25] MEDS: APIXABAN 2.5 MG TABLET PO (08:42)
[2025-08-25] MEDS: meropenem 1,000 mg SDV 1000 MG IVP ×2 (08:43→22:53)
--- NOTE | 2025-08-25 10:24 | PM.CONSULT ---
Providers/Reason For Consult Consulting Physician/Specialty*: kommana/Nephrology Reason for Consult*: ESRD Attending Physician: Jovanni Ramires MD Primary Care Provider: Lexis Ring MD History of Present Illness History of Present Illness Berenice Pierce is a 65 year old female Patient is a 65-year-old female with past medical history of end-stage renal disease on dialysis per Monday schedule, hypertension chronic low back pain, sleep apnea on 2 L O2 at home, diabetes, hypertension, osteomyelitis presented to the emergency department due to nausea vomiting and diarrhea going on for about a week. Patient has missed 3 dialysis sessions. In the ER patient was noted to have potassium of 6.2, blood pressures 177/57 initially,. Review of Systems Narrative: negative Medications/Allergies Home Medications ?Medication ?Instructions ?Recorded ?Confirmed ?Last Taken ?Type albuterol sulfate 2.5 mg/3 mL 2.5 mg inhalation Q6H 12/25/24 12/25/24 Unknown History (0.083 %) solution for nebulization calcitriol 0.25 mcg capsule 0.25 mcg PO DAILY 12/25/24 12/25/24 Unknown History hydralazine 50 mg tablet 50 mg PO TID 12/25/24 12/25/24 Unknown History hydrocodone 7.5 mg-acetaminophen 1 - 2 tab PO .Q4-6H 12/25/24 12/25/24 Unknown History 325 mg tablet insulin lispro 100 unit/mL 22 unit SUBCUT .WITH EACH MEAL 12/25/24 12/25/24 Unknown History subcutaneous pen ipratropium bromide 42 mcg (0.06 2 spray intranasal TID 12/25/24 12/25/24 Unknown History %) nasal spray levothyroxine 112 mcg tablet 112 mcg PO DAILY 12/25/24 12/25/24 Unknown History metoprolol tartrate 25 mg tablet 25 mg PO BID 12/25/24 12/25/24 Unknown History pregabalin 25 mg capsule 25 mg PO DAILY 12/25/24 12/25/24 Unknown History ropinirole 0.25 mg tablet 0.25 mg PO TID 12/25/24 12/25/24 Unknown History semaglutide 2 mg/dose (8 mg/3 mL) 2 mg SUBCUT Q7D 12/25/24 12/25/24 Unknown History subcutaneous pen injector (Ozempic) vitamin B complex and vitamin C 1 cap PO DAILY 12/25/24 12/25/24 Unknown History no.20-folic acid 1 mg capsule ([place] Caps) acetaminophen 325 mg tablet 650 mg (2 x 325 mg) PO Q6H PRN 01/02/25 Unknown Rx Mild/Mod Pain Or Temp >/= 101 #100 tabs amiodarone 200 mg tablet (Pacerone) 200 mg PO BID #60 tabs 01/02/25 Unknown Rx apixaban 5 mg tablet (Eliquis) 5 mg PO 1XD #1 tab 01/02/25 Unknown Rx budesonide 0.5 mg/2 mL suspension 0.5 mg (2 mL) inhalation 01/02/25 Unknown Rx for nebulization BID.RESPIRATORY #100 mL cefazolin 1 gram solution for 2,000 mg IVP Q24H #18 ea 01/02/25 Unknown Rx injection docusate sodium 100 mg capsule 100 mg PO BID #100 caps 01/02/25 Unknown Rx insulin glargine U-300 conc 300 40 unit (0.1333 mL) SUBCUT BID #1 01/02/25 12/25/24 Unknown Rx unit/mL (3 mL) subcutaneous pen mL (Toujeo Max U-300 SoloStar) sevelamer carbonate 800 mg tablet 800 mg PO TID #100 tabs 01/02/25 Unknown Rx Allergies Allergy/AdvReac Type Severity Reaction Status Date / Time bumetanide Allergy Unknown Unknown Verified 08/24/25 20:23 sulfamethoxazole (From Allergy Unknown Unknown Verified 08/24/25 20:23 Bactrim) trimethoprim (From Bactrim) Allergy Unknown Unknown Verified 08/24/25 20:23 ceftriaxone Allergy ALGY-Difficulty Verified 08/24/25 22:07 Breathing levofloxacin (From Levaquin) Allergy ADR-Itching Verified 08/24/25 20:23 NSAIDS (Non-Steroidal Allergy Unknown Verified 08/24/25 20:23 Anti-Inflamma Current Medications Generic Name Dose Route Start Last Admin Trade Name Freq PRN Reason Stop Dose Admin Hydrocodone Bitart/Acetaminophen 1 tab 08/24/25 23:24 08/25/25 04:38 Hydrocodone-Acetaminophen 5-325 Mg Tablet PO 1 tab Q4H PRN Administration MODERATE PAIN Apixaban 2.5 mg 08/25/25 09:00 08/25/25 08:42 Apixaban 2.5 Mg Tablet PO 2.5 mg BID@0900,2100 NELIA Administration Calcitriol 0.25 mcg 08/25/25 05:30 08/25/25 05:45 Calcitriol 0.25 Mcg Capsule PO 0.25 mcg DAILY NELIA Administration Dextrose 250 mls @ 1,000 mls/hr 08/24/25 22:21 08/24/25 23:13 D10w IV Infused PRN PRN Infusion HYPOGLYCEMIA Insulin Human Lispro 0 unit 08/25/25 08:00 08/25/25 07:49 Insulin Lispro 100 Unit/1 Ml SUBCUT Not Given WM&BEDTIME NELIA Protocol Levothyroxine Sodium 112 mcg 08/25/25 05:30 08/25/25 05:45 Levothyroxine 112 Mcg Tablet PO 112 mcg DAILY NELIA Administration Meropenem 1,000 mg 08/25/25 09:00 08/25/25 08:43 Meropenem 1,000 Mg Sdv IVP 1,000 mg Q12H NELIA Administration Ondansetron HCl 4 mg 08/24/25 23:24 08/25/25 07:59 Ondansetron 2 Mg/Ml Sdv 2 Ml IVP 4 mg Q6H PRN Administration NAUSEA AND VOMITING Pantoprazole Sodium 40 mg 08/25/25 05:00 08/25/25 04:[address] 40 Mg Tablet PO 40 mg DAILY NELIA Administration Pregabalin 25 mg 08/25/25 05:30 08/25/25 05:45 Pregabalin 25 Mg Capsule PO 25 mg DAILY NELIA Administration PFSH Acute PFSH: Medical History (Updated 08/24/25 @ 22:57 by Casimiro Akbar DO) Chronic ulcer of right foot Poor intravenous access Elevated troponin Missed dialysis Metabolic acidosis Respiratory syncytial virus Uremia Headache Acute hyperkalemia [facility]CI (current) use of opiate analgesic Pain management contract signed Lumbar stenosis with neurogenic claudication Seizure PRES (posterior reversible encephalopathy syndrome) RLS (restless legs syndrome) TARA (obstructive sleep apnea) Chronic antibiotic suppression Staphylococcus epidermidis bacteremia Diastolic heart failure H/O staphylococcal septicemia Hyperglycemia Cellulitis Thyroid disease Chronic back pain Renal failure HTN (hypertension) Obesity Surgical History (Updated 01/03/25 @ 00:00 by BLAS Bruner) 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 H/O: hysterectomy Arteriovenous fistula History of tonsillectomy History of cholecystectomy History of back surgery History of appendectomy History of adenoidectomy Family History Other Cancer Social History Smoking and tobacco/nicotine status: never used tobacco/nicotine Alcohol intake: never Substance/Drug Use: never Lives independently: Yes Household members: spouse Housing: House Marital status: Vitals/I&O/Wt Last Vital Signs Temp 97.9 F 08/25/25 08:00 Pulse 66 08/25/25 10:03 Resp 18 08/25/25 10:03 BP 162/52 08/25/25 09:45 Pulse Ox 97 08/25/25 10:03 O2 Del Method Nasal Cannula 08/25/25 10:03 O2 Flow Rate 3 08/25/25 10:03 08/24/25 08/25/25 08/25/25 22:59 06:59 14:59 Intake Total 0 / 0 1690 / 1690 200 / 200 Balance 0 / 0 1690 / 1690 200 / 200 Weight last 48 hrs Weight 115 kg Weight 117.5 kg Weight 118.932 kg Physical Exam Narrative: awake , alert , no distress 2L NC No JVD PEERLA S1S2 RRR per report Lungs clear per report Abd soft , non tender Ext No edema Data 08/25/25 04:40 08/25/25 04:40 Micro: Microbiology 08/24/25 20:55 Blood Culture - Preliminary Blood SPECIMEN COLLECTED 08/24/25 20:54 Blood Culture - Preliminary Blood SPECIMEN COLLECTED A&P Assessment and plan 1. ESRD on dialysis: Plan: 1. ESRD: Patient missed dialysis and now presented with hyperkalemia, plan for urgent dialysis Ultrafiltration as tolerated 2. Hyperkalemia: Medically treated, and HD as above with a low K dialysate, placed on low potassium diet 3. A-fib with RVR 4. Anemia: Hemoglobin 10.4 on presentation monitor, HIRO when indicated 5. History of hypertension, resumed home meds 6. History of sleep apnea on O2 2 L at home Patient evaluated using audiovisual cart. Time spent 40 minutes PDMP PDMP Reviewed: Not Reviewed Coding Level of Care Code Acute Code for Chg Fwd Diagnoses ESRD on dialysis N18.6; Z99.2
[2025-08-25 12:04] LABS: Respiratory Syncytial Virus Ce NEGATIVE (Negative); SARS-CoV-2 PCR NEGATIVE (Negative)
[2025-08-25 12:24] LABS: C.Diff PCR (Lab) NEGATIVE (Negative)
[2025-08-25] MEDS: hyDRALAzine 20 mg/mL INJ 1 mL 10 MG IVP ×2 (13:21→17:58)
[2025-08-25] MEDS: morphine 4 mg/mL SDV 1 mL IVP (19:02)
[2025-08-26] VITALS (40 sets, daily range): BP systolic 116–184; BP diastolic 35–130; PULSE 54–83; RESP 14–30; TEMP 35.9–36.7; O2SAT 91–98
[2025-08-26 04:20] LABS: Hematocrit 32.0 % (36-47); Hemoglobin 9.60 g/dL (11.27-16.99); Mean Corpuscular HGB Conc 30.0 g/dL (30-55); Mean Corpuscular Hemoglobin 26.2 pg (27-33); Mean Corpuscular Volume 87.2 fl (85-98); Nucleated Red Blood Cells % 0 %; Platelet Count 109 10^3/cmm (157-399); Red Blood Count 3.67 10^6/uL (3.85-5.65); White Blood Count 7.01 10^3/uL (3.29-11.43)
[2025-08-26 04:48] LABS: Alanine Aminotransferase 19 U/L (0-33); Albumin Level 3.4 g/dL (3.5-5.2); Alkaline Phosphatase 190 U/L (35-105); Anion Gap 23.2 (5-19); Aspartate Amino Transferase 11 U/L (0-32); Blood Urea Nitrogen 61 mg/dL (8-23); Calcium 7.7 mg/dL (8.5-10.5); Carbon Dioxide 21 mmol/L (22-29); Chloride 97 mmol/L (98-107); Creatinine Clr Calc Pharmacy 8.1840; Globulin 3.5 g/dL (1.3-4.6); Glucose 127 mg/dL (65-115); Osmolality Calculated 301 mOsm/kg (285-295); Potassium 5.2 mmol/L (3.5-5.1); Sodium 136 mmol/L (136-145); Total Protein 6.9 g/dL (6.6-8.7)
[2025-08-26] MEDS: ondansetron 2 mg/ML SDV 2 mL 4 MG IVP ×3 (06:02→17:19)
--- NOTE | 2025-08-26 10:27 | PC.NURSE ---
Took patient to MRI, patient refused contrast Dr. Ramires notified reordered for no contrast, MRI told this nurse to bring patient back at 1230
--- NOTE | 2025-08-26 11:13 | P.PN_ITS ---
Subjective 2 Subjective: no new c/o Medications: Reviewed: Yes Vitals/I&O/Wt Last Vital Signs Temp 98.0 F 08/26/25 07:00 Pulse 58 L 08/26/25 09:37 Resp 18 08/26/25 09:37 BP 117/35 08/26/25 09:30 Pulse Ox 96 08/26/25 09:37 O2 Del Method Nasal Cannula 08/26/25 09:37 O2 Flow Rate 2 08/26/25 09:37 08/25/25 08/26/25 08/26/25 22:59 06:59 14:59 Intake Total 420 / 1520 360 / 1880 Balance 420 / -593 360 / -233 Weight last 48 hrs Weight 117 kg Weight 115 kg Weight 115 kg Weight 117.5 kg Weight 118.932 kg Physical Exam 2 Narrative: awake , alert , no distress 2L NC No JVD PEERLA S1S2 RRR per report Lungs clear per report Abd soft , non tender Ext No edema Data 08/26/25 04:00 08/26/25 04:00 Micro: Microbiology 08/24/25 20:55 Blood Culture - Preliminary Blood NEGATIVE TO DATE 08/24/25 20:54 Blood Culture - Preliminary Blood NEGATIVE TO DATE A&P Assessment and plan 1. ESRD on dialysis: Plan: 1. ESRD: Patient missed dialysis and now presented with hyperkalemia , HD today Ultrafiltration as tolerated 2. Hyperkalemia: Medically treated, and HD as above with a low K dialysate, placed on low potassium diet 3. A-fib with RVR 4. Anemia: Hemoglobin 10.4 on presentation monitor, HIRO when indicated 5. History of hypertension, resumed home meds 6. History of sleep apnea on O2 2 L at home 7. Foot ulcer , concern for osteomyelitis , plan for MRI with out contrast today Patient evaluated using audiovisual cart. Time spent 40 minutes PDMP PDMP Reviewed: Not Reviewed Attestations 2 Medical Necessity Statement*: per lucie Coding Level of Care Code Acute Code for Chg Fwd Diagnoses ESRD on dialysis N18.6; Z99.2
[2025-08-26] MEDS: HYDROcodone-acetaminophen 5-325 mg Tablet 1 TAB PO (11:52)
--- NOTE | 2025-08-26 12:04 | PM.PN ---
Subjective Subjective: No acute vents overnight. Blood pressure better controlled. Patient today morning feeling weak and tired. Denies any nausea, vomiting. Vitals/I&O/Wt Last Vital Signs Temp 98.0 F 08/26/25 07:00 Pulse 58 L 08/26/25 09:37 Resp 18 08/26/25 09:37 BP 122/35 08/26/25 10:00 Pulse Ox 96 08/26/25 09:37 O2 Del Method Nasal Cannula 08/26/25 09:37 O2 Flow Rate 2 08/26/25 09:37 08/25/25 08/26/25 08/26/25 22:59 06:59 14:59 Intake Total 420 / 1520 360 / 1880 Balance 420 / -593 360 / -233 Weight last 48 hrs Weight 117 kg Weight 115 kg Weight 115 kg Weight 117.5 kg Weight 118.932 kg Physical Exam Narrative: General: Alert and oriented, lying comfortably without any distress, able to speak in full sentences. HEENT: Normocephalic, atraumatic, grossly unremarkable exam Cardio: normal rate rhythm, normal S1-S2 without any murmurs, rubs, or gallops and JVD normal Respiratory: normal vascular breathing on auscultation however bases cannot be auscultated adequately due to morbid obesity and thick chest wall. GI: Abdomen soft, nontender, nondistended, normoactive bowel sounds present all 4 quadrants, Neuro: intact cranial nerves motor and sensory and cerebellar/coordination function without any focal neurological deficit Behavior: Appropriate and cooperative Extremities/skin: Adequate palpable pulses, mild trace edema with chronic skin changes chronic edema both legs more prominent on the right side up to mid shins. Patient having ulcer on the right plantar foot surface with granulation tissue at the base and slough mild foul-smelling. Skin: OTHER: Data 08/26/25 04:00 08/26/25 04:00 Micro: Microbiology 08/24/25 20:55 Blood Culture - Preliminary Blood NEGATIVE TO DATE 08/24/25 20:54 Blood Culture - Preliminary Blood NEGATIVE TO DATE A&P Assessment and plan 1. Diabetic foot ulcer associated with secondary diabetes mellitus: Concern for possible sepsis on admission. History of Staphylococcus bacteremia due to infected hemodialysis catheter in the past. Chronic osteomyelitis. Patient does have new ulcers on the foot. Has been complaining of diarrhea. Most recently not on antibiotics. Does have history of C. difficile. Appreciate ESR, CRP. MRI foot with and without contrast to rule out osteomyelitis. Continue wound care as an outpatient. If concern for osteomyelitis will consult podiatry. Follow-up blood cultures. Check C. difficile. History of MSSA bacteremia, MRSA, Pseudomonas, strep from the wound along with Serratia. Empirically start patient on IV meropenem. Continue with vancomycin. Dose renally. 2. Missed dialysis: 3. ESRD on dialysis: Nephrology on board. Missed dialysis. Associated with hyperkalemia and metabolic acidosis on admission. Emergent dialysis overnight. Continue to monitor. Gets dialysis Monday, Monday, Monday. m gluconate, monitor BMP every 4 hours 4. Atrial fibrillation with RVR: Most likely in setting of respiratory failure due to diastolic heart failure overnight from missed dialysis and hypertensive emergency. Currently back in sinus rhythm. Continue with amiodarone. Change dose to 200 mg daily. Eliquis 5 mg twice daily. Continue with metoprolol 25 mg twice daily. Will uptitrate if heart rate continues to trend more than 100. 5. HTN (hypertension): Concerns for hypertensive emergency. Goal blood pressure less than 140/90 mmHg. Continue with above dose of metoprolol. Hydralazine 50 mg 3 times daily. Uptitrate as per goal blood pressure. IV hydralazine 10 mg every 4 hours as needed for systolic of more than 160. 6. Type 2 diabetes mellitus: Last A1c of 6.6 in December. Repeat A1c. Supposed to be on Lantus 40 units nightly along with lispro 22 units prior to each meal. Continue on sliding scale ACHS for now. Will add Lantus depending on blood sugars in next any 4 hours. 7. TARA (obstructive sleep apnea): Oxygen therapy/NIV as per protocol obstructive sleep apnea 8. Lumbar post-laminectomy syndrome: Patient on pregabalin 25 mg daily and to resume after medication reconciliation Adequate analgesia provided as needed for the pain 9. Thyroid disease: Patient on home dose levothyroxine 112 mcg daily, to start after reconciliation 10. Diastolic heart failure: 11. Acute hyperkalemia: Resolved. Plan: Renal dialysis diabetic diet Eliquis will be sufficient for DVT prophylaxis Protonix OPD prophylaxis Blood pressure better controlled. Continue with current antihypertensive. Change dose of hydralazine to 75 mg twice daily. Heart rate stable. Occasional episodes of bradycardia overnight. Continue with amiodarone 20 mg daily along with metoprolol 25 mg twice daily. Appreciate nephrology recommendations. Possible plan for dialysis in AM. Awaiting MRI. If concern for osteomyelitis will consult podiatry. For now continue with broad-spectrum IV antibiotics. Follow-up blood cultures. C. difficile negative. Appreciate blood sugars. Patient overall received 10 units of insulin yesterday. Continue with current sliding scale. Will add Lantus depending on the blood sugar and insulin requirements in next 24 hours. Repeat A1c. Last A1c 6.6 in December 2024. Transfer to [facility] [place]. Discharge plan: If osteomyelitis ruled out most likely patient he may discharge in next 24 hours after repeat dialysis. PDMP PDMP Reviewed: Not Reviewed Attestations Medical Necessity Statement*: Requires further hospitalization for management of missed dialysis in a patient with end-stage renal disease on hemodialysis, diabetic foot ulcer while osteomyelitis is ruled out Diagnoses Diabetic foot ulcer associated with secondary diabetes mellitus E08.621; L97.509 Missed dialysis ESRD on dialysis N18.6; Z99.2 Atrial fibrillation with RVR I48.91 HTN (hypertension) I10 Type 2 diabetes mellitus E11.9 TARA (obstructive sleep apnea) G47.33 Lumbar post-laminectomy syndrome M96.1 Thyroid disease E07.9 Diastolic heart failure I50.30 Acute hyperkalemia E87.5
--- NOTE | 2025-08-26 12:30 | MR_ITS ---
WS: [id number] MRI RIGHT FOOT WITHOUT CONTRAST. COMPARISON: 12/26/2024 Multiplanar, multisequence imaging is performed without contrast. Patient refused IV contrast. This MRI is targeted to the ankle and the areas of concern which are in the midfoot and ankle. Patient is status post partial amputations of the fourth and fifth metatarsals. Soft tissue ulcer with skin thickening along the plantar surface of the lateral foot extends over a length of 4.3 cm x 1.8 cm deep. The ulceration track extends to about the plantar surface of the remaining fifth metatarsal. There is a very small of soft tissue edema surrounding the amputated site of the fifth metatarsal. There is no edema or marrow signal within the metatarsal. There is a very small amount of marrow edema involving the plantar surface of the cuboid and extending between the articulation between the cuboid and the fifth metatarsal. There is an additional soft tissue ulceration along the posterior plantar surface of the calcaneus measuring 3.4 x 0.8 cm. There is a small amount of soft tissue edema along the posterior calcaneal process. Abrupt termination of the posterior brevis tendon just lateral to the cuboid. The remaining tendons at the ankle are negative. There is no soft tissue fluid collection or mass. There is diffuse soft tissue edema surrounding the ankle and hindfoot and midfoot. MR/MR foot RT wo con* [id number] IMPRESSION: 1. Large plantar soft tissue ulceration over the lateral foot measures 4.3 x 1 .8 cm. Ulceration extends to abut the plantar surface of the residual fifth met atarsal. There is surrounding soft tissue edema but no signal abnormality in th e metatarsal. 2. There is a very small amount of increased T2 signal in the plantar surface of the cuboid. Osteomyelitis not excluded. 3. Additional soft tissue ulceration along the plantar surface of the posterio r calcaneus measures 3.4 x 0.8 cm. There is a small amount of fluid but no defi nite marrow signal changes. 4. Study performed without IV contrast at the patient's request. 5. Partial amputation of the fourth and fifth metatarsals. 6. Abrupt termination of the distal peroneus brevis tendon. Probably chronic t endon disruption. 7. Cortical surface erosions involving the articulation between the cuboid and the fifth metatarsal. There is a small amount of edema. Osteomyelitis should b e considered.
[2025-08-26 13:32] LABS: Estmated Average Glucose 120; Hemoglobin A1C 5.8 % (4.0-6.0)
--- NOTE | 2025-08-26 15:22 | PC.NURSE ---
off unit for dialysis
--- NOTE | 2025-08-26 17:58 | PC.NURSE ---
back from dialysis approximately 1744
[2025-08-26] MEDS: meropenem 1,000 mg SDV 1000 MG IVP (20:39)
[2025-08-27] VITALS: BP 151/41; PULSE 52; RESP 21; O2SAT 97
[2025-08-27 03:14] LABS: Hematocrit 33.8 % (36-47); Hemoglobin 10.20 g/dL (11.27-16.99); Mean Corpuscular HGB Conc 30.2 g/dL (30-55); Mean Corpuscular Hemoglobin 26.6 pg (27-33); Mean Corpuscular Volume 88.0 fl (85-98); Nucleated Red Blood Cells % 0 %; Platelet Count 99 10^3/cmm (157-399); Red Blood Count 3.84 10^6/uL (3.85-5.65); White Blood Count 6.14 10^3/uL (3.29-11.43)
[2025-08-27 03:34] LABS: Alanine Aminotransferase 16 U/L (0-33); Albumin Level 3.6 g/dL (3.5-5.2); Alkaline Phosphatase 190 U/L (35-105); Anion Gap 18.7 (5-19); Aspartate Amino Transferase 12 U/L (0-32); Blood Urea Nitrogen 38 mg/dL (8-23); Calcium 8.3 mg/dL (8.5-10.5); Carbon Dioxide 25 mmol/L (22-29); Chloride 101 mmol/L (98-107); Creatinine Clr Calc Pharmacy 11.4074; Globulin 3.9 g/dL (1.3-4.6); Glucose 150 mg/dL (65-115); Osmolality Calculated 302 mOsm/kg (285-295); Potassium 4.7 mmol/L (3.5-5.1); Sodium 140 mmol/L (136-145); Total Protein 7.5 g/dL (6.6-8.7)
[2025-08-27 03:44] VITALS: BP 177/65; PULSE 59; RESP 15; TEMP 36.8; O2SAT 99
[2025-08-27 08:00] VITALS: BP 179/54; PULSE 54; RESP 20; TEMP 36.6; O2SAT 96
--- NOTE | 2025-08-27 08:22 | PC.SOCIAL ---
IMM Update pg 2 of IMM updated and reviewed w/ patient. Copy provided and copy dated, initialed and placed in chart.
--- NOTE | 2025-08-27 08:30 | XR_ITS ---
WS: [id number] Right foot, 3 views, 08/27/2025 Clinical Data: Diabetic ulcer Comparison: Right foot, -2024 Findings: The right fourth and fifth toes and distal portions of the right fourth and fifth metatarsals have been amputated. There is irregularity of the base of the right fifth metatarsal. The base of the right calcaneus is irregular but shows no erosion. Tarsal osteoarthritis is present. The right first through third toes are intact with no erosions. There is soft tissue swelling throughout the foot. There is vascular calcification. No fractures or dislocations are seen. XR/XR foot RT min 3V* [id number] Impression: 1. Amputation of the right fourth and fifth toes and distal portions of the cor responding metatarsals. 2. Soft tissue swelling surrounding the foot. 3. Irregularity of the base of the right fifth metatarsal which has not changed . 4. Tarsal osteoarthritis.
--- NOTE | 2025-08-27 09:19 | P.PN_ITS ---
Subjective 2 Subjective: no new c/o Medications: Reviewed: Yes Vitals/I&O/Wt Last Vital Signs Temp 97.9 F 08/27/25 08:00 Pulse 54 L 08/27/25 08:00 Resp 20 H 08/27/25 08:00 BP 179/54 08/27/25 08:00 Pulse Ox 96 08/27/25 08:00 O2 Del Method Nasal Cannula 08/27/25 03:44 O2 Flow Rate 2 08/26/25 19:55 08/26/25 08/27/25 08/27/25 22:59 06:59 14:59 Intake Total 700 / 1300 250 / 1550 Output Total 2433 / 2433 Balance -1733 / -1133 250 / -883 Weight last 48 hrs Weight 115 kg Weight 116.5 kg Weight 117 kg Weight 115 kg Physical Exam 2 Narrative: awake , alert , no distress 2L NC No JVD PEERLA S1S2 RRR per report Lungs clear per report Abd soft , non tender Ext No edema Data 08/27/25 02:36 08/27/25 02:36 A&P Assessment and plan 1. ESRD on dialysis: Plan: 1. ESRD:HD today Ultrafiltration as tolerated 2. Hyperkalemia: improved , placed on low potassium diet 3. A-fib with RVR 4. Anemia: Hemoglobin 10.2 on presentation monitor, HIRO when indicated 5. History of hypertension, resumed home meds 6. History of sleep apnea on O2 2 L at home 7. Right Foot ulcer Patient evaluated using audiovisual cart. Time spent 40 minutes PDMP PDMP Reviewed: Not Reviewed Attestations 2 Medical Necessity Statement*: per sergio Coding Level of Care Code Acute Code for Chg Fwd Diagnoses ESRD on dialysis N18.6; Z99.2
[2025-08-27] MEDS: HYDROcodone-acetaminophen 5-325 mg Tablet 1 TAB PO (11:57)
[2025-08-27 12:00] VITALS: PULSE 60; RESP 22; O2SAT 95
[2025-08-27 13:58] VITALS: BP 146/53; BP 168/66; PULSE 56; RESP 18; TEMP 36.8
[2025-08-27 16:00] VITALS: BP 167/54; PULSE 63; RESP 24
--- NOTE | 2025-08-27 16:55 | P.DS_ITS ---
Discharge Providers Date of Admission: 08/24/25 22:24 Date of Discharge: August 27, 2025 Attending Provider at Admission: Chantale Savage MD Attending Provider at Discharge: Dia Steward MD Consults: Consult to podiatry Consult to nephrology Primary Care Provider: Lexis Ring MD Diagnoses at Discharge Discharge Diagnosis 1. ESRD on dialysis: 2. Missed dialysis: 3. Acute hyperkalemia: 4. Atrial fibrillation with RVR: 5. Diabetic foot ulcer associated with secondary diabetes mellitus: 6. Chronic osteomyelitis: 7. Type 2 diabetes mellitus: 8. TARA (obstructive sleep apnea): 9. Lumbar post-laminectomy syndrome: 10. Thyroid disease: 11. HTN (hypertension): Reason for Visit Reason for Visit: NAUSEA Brief History: This is a 65-year-old female with ESRD on hemodialysis, renal osteodystrophy, anemia of chronic renal disease, paroxysmal atrial fibrillation, type 2 diabetes mellitus, chronic right diabetic foot ulcer with chronic osteomyelitis, hypertension, TARA, RLS, postlaminectomy syndrome, and hypothyroidism. She presented to the ED with chills, nausea, vomiting, and generalized weakness. She had missed hemodialysis for 1 week. She usually gets dialysis on [facility]. She was found to have hyperkalemia and metabolic acidosis. She received urgent dialysis on admission. Hospital Course Hospital Course Her hyperkalemia and metabolic acidosis resolved with hemodialysis. She was noted to have atrial fibrillation with RVR on admission. She initially was bradycardic to the 50s and then tachycardic to 100s. She is on metoprolol, amiodarone, and apixaban. She has type 2 diabetes mellitus and A1c was 6.6% in December 2024. She had an MRI of her right foot given her chronic right foot ulcers. MRI osteomyelitis cannot be excluded. Podiatry was consulted and said that it was chronic osteomyelitis and did not require IV antibiotics. A cam boot was placed prior to discharge. She strongly does not want to have her foot amputated. She was counseled on the importance of wearing the cam boot to assist with wound healing. She will follow-up with podiatry in 1 week. She has TARA and uses CPAP nightly. Physical Exam Const: COMMON NORMALS: no acute distress, patient oriented x3 and alert GENERAL APPEARANCE: cooperative ORIENTATION/CONSCIOUSNESS: Yes awake HENMT: COMMON NORMALS: normocephalic, atraumatic and oropharynx normal HEAD & SCALP: normocephalic and atraumatic Eye: COMMON NORMALS: Equal, round and reactive pupils present and EOMs intact bilaterally PUPIL: Yes Equal, round and reactive pupils present Neck/C-Spine: COMMON NORMALS: supple Chest: CHEST: Yes Vascular access present Resp: COMMON NORMALS: normal respiratory effort and clear to auscultation bilaterally AUSCULTATION: clear to auscultation bilaterally Cardio: COMMON NORMALS: regular rate, S1 normal heart sound present and S2 normal heart sound present JUGULAR VENOUS DISTENTION: no JVD RATE: regular rate RHYTHM: abnormal rhythm HEART SOUNDS: S1 normal heart sound present, S2 normal heart sound present and no murmurs GI: COMMON NORMALS: Normal to inspection, nondistended, normoactive bowel sounds present, Soft to palpation and non-tender PALPATION: Yes Soft to palpation : COMMON NORMALS: Yes no CVA tenderness BLADDER/KIDNEY EXAM: Yes no CVA tenderness Back/Pelvis: COMMON NORMALS: no CVA tenderness Extremity: GENERAL: Yes other findings (Trace edema, palpable pulses) Neuro: COMMON NORMALS: patient oriented x3, moves all extremities and no focal motor deficits SENSORIUM/ORIENTATION: Yes alert Psych: COMMON NORMALS: Normal thought process present and denies hallucinations THOUGHT PROCESS: Normal thought process present Skin: OTHER: Ulcers right foot and heel and plantar aspect of right foot with granulation tissue at the base. Discharge Data Studies Completed and Pending Completed Studies During Hospitalization Category Date Time Status CT abdomen pelvis wo con [id number] Stat Cat Scan 08/24/25 20:39 Completed XR chest 1V portable [id number] Stat Exams 08/24/25 20:39 Completed XR foot RT min 3V* [id number] Routine Exams 08/27/25 08:30 Completed MR foot RT wo con* [id number] Routine MRI 08/26/25 12:30 Completed Pending at discharge Category Date Time Status Blood Culture Stat Lab 08/24/25 20:55 Results Radiology Impressions Abdomen/Pelvis CT 08/24/25 20:39 IMPRESSION: 1. Mild urinary bladder wall thickening likely due to nondistention, please correlate for cystitis. 2. Small amount of nonspecific fluid in the pelvis. 3. Cardiomegaly. 4. Coronary artery atherosclerotic calcifications. 5. Bibasilar right greater than left airspace infiltrates. 6. Anasarca. 7. Spleen enlarged at 14 cm. 8. Perinephric narrowed bilaterally likely reflecting renal sufficiency. 9. Cholecystectomy. Chest X-Ray 08/24/25 20:39 IMPRESSION: 1. Cardiomegaly. 2. Bilateral mid to lower lung field atelectasis versus infiltrate. 3. Left-sided central venous catheter. 4. Trace bilateral pleural effusions. 5. Surgical hardware in the spine. Foot MRI 08/26/25 12:30 IMPRESSION: 1. Large plantar soft tissue ulceration over the lateral foot measures 4.3 x 1.8 cm. Ulceration extends to abut the plantar surface of the residual fifth metatarsal. There is surrounding soft tissue edema but no signal abnormality in the metatarsal. 2. There is a very small amount of increased T2 signal in the plantar surface of the cuboid. Osteomyelitis not excluded. 3. Additional soft tissue ulceration along the plantar surface of the posterior calcaneus measures 3.4 x 0.8 cm. There is a small amount of fluid but no definite marrow signal changes. 4. Study performed without IV contrast at the patient's request. 5. Partial amputation of the fourth and fifth metatarsals. 6. Abrupt termination of the distal peroneus brevis tendon. Probably chronic tendon disruption. 7. Cortical surface erosions involving the articulation between the cuboid and the fifth metatarsal. There is a small amount of edema. Osteomyelitis should be considered. Foot X-Ray 08/27/25 08:30 Impression: 1. Amputation of the right fourth and fifth toes and distal portions of the corresponding metatarsals. 2. Soft tissue swelling surrounding the foot. 3. Irregularity of the base of the right fifth metatarsal which has not changed. 4. Tarsal osteoarthritis. Laboratory Results WBC 6.14 10^3/uL (3.29-11.43) 08/27/25 02:36 RBC 3.84 10^6/uL (3.85-5.65) L 08/27/25 02:36 Hgb 10.20 g/dL (11.27-16.99) L 08/27/25 02:36 Hct 33.8 % (36-47) L 08/27/25 02:36 MCV 88.0 fl (85-98) 08/27/25 02:36 MCH 26.6 pg (27-33) L 08/27/25 02:36 MCHC 30.2 g/dL (30-55) 08/27/25 02:36 RDW 16.8 % (12.1-15.1) H 08/27/25 02:36 Plt Count 99 10^3/cmm (157-399) L 08/27/25 02:36 MPV 11.3 fL (7.4-10.4) H 08/27/25 02:36 Neut % (Auto) 77.1 % 08/27/25 02:36 Lymph % (Auto) 11.9 % 08/27/25 02:36 [place] % (Auto) 5.0 % 08/27/25 02:36 Eos % (Auto) 5.0 % 08/27/25 02:36 Baso % (Auto) 0.7 % 08/27/25 02:36 Neut # (Auto) 4.73 10^3/uL (1.8-7.7) 08/27/25 02:36 Lymph # (Auto) 0.7 10^3/uL (0.8-4.8) L 08/27/25 02:36 [place] # (Auto) 0.3 10^3/uL (0.2-0.9) 08/27/25 02:36 Eos # (Auto) 0.3 10^3/uL (0.0-0.8) 08/27/25 02:36 Baso # (Auto) 0.0 10^3/uL (0.0-0.1) 08/27/25 02:36 Nucleated RBC % (auto) 0 % 08/27/25 02:36 Nucleated RBCs # 0.0 /100WBC 08/27/25 02:36 ESR 52 mm/hr (0-15) H 08/27/25 02:36 Sodium 140 mmol/L (136-145) 08/27/25 02:36 Potassium 4.7 mmol/L (3.5-5.1) 08/27/25 02:36 Chloride 101 mmol/L (98-107) 08/27/25 02:36 Carbon Dioxide 25 mmol/L (22-29) 08/27/25 02:36 Anion Gap 18.7 (5-19) 08/27/25 02:36 BUN 38 mg/dL (8-23) H 08/27/25 02:36 Creatinine 6.0 mg/dL (0.5-0.9) H* 08/27/25 02:36 GFR Calculation 7.0 mL/min (90-130) L 08/27/25 02:36 Glucose 150 mg/dL (65-115) H 08/27/25 02:36 POC Glucose 180 mg/dL (70-110) H 08/27/25 06:04 Estimat Average Glucose 120 08/26/25 04:00 Hemoglobin A1c 5.8 % (4.0-6.0) 08/26/25 04:00 Calculated Osmolality 302 mOsm/kg (285-295) H 08/27/25 02:36 Lactic Acid 0.8 mmol/L (0.5-2.2) 08/24/25 20:54 Calcium 8.3 mg/dL (8.5-10.5) L 08/27/25 02:36 Phosphorus 9.5 mg/dL (2.5-4.5) H* 08/24/25 20:54 Magnesium 2.8 mg/dL (1.7-2.3) H 08/24/25 20:54 Total Bilirubin 0.4 mg/dL (0.15-1.2) 08/27/25 02:36 AST 12 U/L (0-32) 08/27/25 02:36 ALT 16 U/L (0-33) 08/27/25 02:36 Alkaline Phosphatase 190 U/L (35-105) H 08/27/25 02:36 Creatine Kinase 63 U/L (26-192) 08/24/25 20:54 C-Reactive Protein 22.8 mg/L (0.0-4.9) H 08/27/25 02:36 C-React Prot High Sens 3.350 mg/dL (0.0-0.3) H 08/24/25 23:52 Total Protein 7.5 g/dL (6.6-8.7) 08/27/25 02:36 Albumin 3.6 g/dL (3.5-5.2) 08/27/25 02:36 Globulin 3.9 g/dL (1.3-4.6) 08/27/25 02:36 Lipase 69 U/L (13-60) H 08/24/25 20:54 Urine Color Yellow (Yellow) 08/24/25 20:25 Urine Appearance Slightly cloudy (CLEAR) 08/24/25 20:25 Urine pH 6.5 (5-7) 08/24/25 20:25 Ur Specific [place] 1.015 (1.005-1.030) 08/24/25 20:25 Urine Protein 3+ (Negative) H 08/24/25 20:25 Urine Glucose (UA) 2+ (Normal) H 08/24/25 20:25 Urine Ketones Negative (Negative) 08/24/25: Urine Blood 2+ (Negative) H 08/24/25 20:25 Urine Nitrate Negative (Negative) 08/24/25:25 Urine Bilirubin Neg (Negative) 08/24/25: Urine Urobilinogen Norm mg/dL (Negative) 08/24/25 20:25 Ur Leukocyte Esterase 2+ (Negative) H 08/24/25 20:25 Urine RBC 10-15 /hpf (0-2) H 08/24/25 20:25 Urine WBC >100 /hpf (0-5) H 08/24/25 20:25 Ur Squamous Epith Cells 21-50 /hpf (0-5) H 08/24/25 20:25 Amorphous Sediment Not Reportable 08/24/25 20:25 Urine Bacteria 1+ /hpf (NONE) H 08/24/25 20:25 Nasal MRSA (PCR) Mrsa detected (Not Detecte) A 08/24/25 00:22 Random Vancomycin 22.8 ug/mL (20.0-40.0) 08/27/25 02:36 C. difficile (PCR) Negative (Negative) 08/25/25 10:16 Influenza A (PCR) Negative (Negative) 08/25/25 10:16 Influenza Type B (PCR) Negative (Negative) 08/25/25 10:16 RSV (PCR) Negative (Negative) 08/25/25 10:16 SARS-CoV-2 (PCR) Negative (Negative) 08/25/25 10:16 Vitals Last Vital Signs Temp 98.2 F 08/27/25 13:58 Pulse 63 08/27/25 16:00 Resp 24 H 08/27/25 16:00 BP 167/54 08/27/25 16:00 Pulse Ox 95 08/27/25 12:00 O2 Del Method Nasal Cannula 08/27/25 03:44 O2 Flow Rate 2 08/26/25 19:55 Discharge Plan Discharge Patient Disposition: Home Condition: Fair Prescriptions: New amiodarone [Pacerone] 200 mg Tablet 200 mg PO DAILY Qty: 30 0RF sevelamer carbonate 800 mg Tablet 800 mg PO TID Qty: 90 0RF Eliquis 5 mg Tablet 5 mg PO BID@0900,2100 Qty: 60 0RF Continued albuterol sulfate 2.5 mg /3 mL (0.083 %) solution for nebulization 2.5 mg inhalation Q6H ropinirole 0.25 mg tablet 0.25 mg PO TID hydrocodone-acetaminophen 7.5-325 mg tablet 1 - 2 tab PO .Q4-6H Antoni Caps 1 mg capsule 1 cap PO DAILY calcitriol 0.25 mcg capsule 0.25 mcg PO DAILY Rx Instructions: take with 0.5mcg levothyroxine 112 mcg tablet 112 mcg PO DAILY metoprolol tartrate 25 mg tablet 25 mg PO BID budesonide 0.5 mg/2 mL Suspension For Nebulization 0.5 mg inhalation BID.RESPIRATORY Qty: 100 0RF tizanidine 4 mg tablet 4 mg PO Q8H torsemide 100 mg tablet 100 mg PO DAILY hydralazine 100 mg tablet 100 mg PO TID Changed insulin glargine U-300 conc [Toujeo Max U-300 SoloStar] 300 unit/mL (3 mL) insulin pen 10 unit SUBCUT BEDTIME Qty: 1 0RF Discontinued amiodarone [Pacerone] 200 mg Tablet 200 mg PO BID Qty: 60 0RF Discharge Order = DC NOW: Discharge Order (Routine); Ordered 08/27/25 Ordered By: Dia Steward Referrals: Radha Sherwood NP [Referring, Unknown] - 09/02/25 9:30 am Vidal Bowers DPM [Physician, Podiatry] - 09/03/25 10:00 am Referral Note: follow up in 1 week Discharge Diet: Diabetic Discharge Activity: Increase activity as tolerated Patient Instructions: Atrial Fibrillation, Amiodarone (By mouth), Sevelamer (By mouth), Apixaban (By mouth), Sleep Apnea (GEN), Hyperkalemia (DC), Opioid Safety, Patient Portal & Uzma Instructions Activity Restrictions/Additional Instructions: Instructions from Dr. Bowers D.P.M./podiatry. Follow-up in podiatry clinic at [facility] September 03, 2020 5:10 AM. Please wear cam boot to the right lower extremity at all times and only weight- bear for transfers Keep current dressing on until follow-up visit Hydrofera Blue is your primary dressing and is indicated for up to 7 days. Contact podiatry clinic with any questions or concerns [phone] Monitor glucose and increase insulin dose up to regular dose as needed. Discharge Attestations Time Spent in Discharge Care*: greater than 30 min Status at Discharge: Cognitive status at discharge: cognitively intact , Behavioral status at discharge: cooperative , Quality Metrics Clinical Quality Measures [ No reported AMI, CVA or VTE this stay] Coding Level of Care Code 24799 Diagnoses ESRD on dialysis N18.6; Z99.2 Missed dialysis Acute hyperkalemia E87.5 Atrial fibrillation with RVR I48.91 Diabetic foot ulcer associated with secondary diabetes mellitus E08.621; L97.509 Chronic osteomyelitis M86.60 Type 2 diabetes mellitus E11.9 TARA (obstructive sleep apnea) G47.33 Lumbar post-laminectomy syndrome M96.1 Thyroid disease E07.9 HTN (hypertension) I10
--- NOTE | 2025-08-27 17:32 | PC.NURSE ---
Patient discharged to home. Instruction provided regarding follow up appointments, new medication and importance of dialysis. patient verbalized understanding. patient has CAM boot in place to right foot prior to discharge. New Rx transmitted to [facility] per patient request. Patient taken by wheelchair to private vehicle. Son by side.
[2025-08-29 05:15] LABS: Bacillus cereus group Not Detected (NOT DETECT); Bacillus subtillis group Not Detected (NOT DETECT); Corynebacterium Not Detected (NOT DETECT); Cutibacterium acnes (P.acnes) Not Detected (NOT DETECT); Enterococcus faecalis Not Detected (NOT DETECT); Enterococcus faecium Not Detected (NOT DETECT); Listeria Not Detected (NOT DETECT); Micrococcus Not Detected (NOT DETECT); Pan Candida Not Detected (NOT DETECT); Pan Gram-Negative Not Detected (NOT DETECT); Staphylococcus epidermidis Not Detected (NOT DETECT); Staphylococcus lugdunensis Not Detected (NOT DETECT); Staphylococcus species Not Detected (NOT DETECT); Streptococcus anginosus group Not Detected (NOT DETECT); Streptococcus pyogenes Not Detected (NOT DETECT); Streptococcus species Not Detected (NOT DETECT)
== END 2025-08-27 17:41 | disposition home or self-care (01) | DRG 637 ==
LOC: ER 21:20 → ICU 22:32 → CSU 08-27 02:30
PROVIDERS: Podiatrist Foot & Ankle Surgery; Student in an Organized Health Care Education/Training Program; Admitting Provider Student in an Organized Health Care Education/Training Program; Emergency Provider Emergency Medicine; PCP Family Medicine; Visit Provider Student in an Organized Health Care Education/Training Program
DX: E11.621 Type 2 diabetes mellitus with foot ulcer (principal); N18.6 End stage renal disease; L97.419 Non-pressure chronic ulcer of right heel and midfoot with unspecified severity; I13.2 Hypertensive heart and chronic kidney disease with heart failure and with stage 5 chronic kidney disease, or end stage renal disease; I50.30 Unspecified diastolic (congestive) heart failure; E87.20 Acidosis, unspecified; Z79.890 Hormone replacement therapy; E87.5 Hyperkalemia; E11.22 Type 2 diabetes mellitus with diabetic chronic kidney disease; G47.33 Obstructive sleep apnea (adult) (pediatric); M96.1 Postlaminectomy syndrome, not elsewhere classified; Z90.49 Acquired absence of other specified parts of digestive tract; Z90.710 Acquired absence of both cervix and uterus; Z79.4 Long term (current) use of insulin; Z79.01 Long term (current) use of anticoagulants; Z79.85 Long-term (current) use of injectable non-insulin antidiabetic drugs; D64.9 Anemia, unspecified; D63.1 Anemia in chronic kidney disease; I48.0 Paroxysmal atrial fibrillation; G25.81 Restless legs syndrome; E03.9 Hypothyroidism, unspecified; Z91.158 Patient's noncompliance with renal dialysis for other reason
CPT/HCPCS: 36415; 36416; 71045; 73630; 73718; 74176; 80048; 80053; 80202; 81001; 82550; 82962; 83036; 83605; 83690; 83735; 84100; 85025; 85651; 86140; 86141; 87040; 87205; 87493; 87637; 90935; 93005; 94640; 96365; 96372; 96375; 97760; 99285; J0360; J0612; J0696; J1200; J1644; J1815; J2185; J2270; J2405; J2543; J3372; J3373; J7050; J7070; J7613; J7799; J9999; L4361; Q3014

== ENCOUNTER → 2025-09-03 10:00 | Outpatient (BNVA) | payer MEDICARE, SELFPAY | PROVIDERS: PCP Family Medicine; Visit Provider Podiatrist Foot & Ankle Surgery | DX: L97.513 Non-pressure chronic ulcer of other part of right foot with necrosis of muscle (principal); L97.413 Non-pressure chronic ulcer of right heel and midfoot with necrosis of muscle; L97.512 Non-pressure chronic ulcer of other part of right foot with fat layer exposed; N18.6 End stage renal disease; Z99.2 Dependence on renal dialysis; E11.621 Type 2 diabetes mellitus with foot ulcer; Z79.4 Long term (current) use of insulin | CPT/HCPCS: 99214 ==

== ENCOUNTER 2025-09-03 15:11 | Inpatient (IN) | payer MEDICARE, SELFPAY ==
[2025-09-03 15:26] VITALS: BP 133/90; PULSE 64; RESP 18; TEMP 36.6
[2025-09-03 15:51] VITALS: BMI 44.8
--- OUTSIDE RECORDS SUMMARY | 2025-09-03 15:56 | XMS_ITS | Clinical Summary ---
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 Gender Identity Not on file Sexual Orientation Not on file Last Filed Vital Signs Vital Sign Reading Time Taken Comments Blood Pressure 162/95 01/05/2020 9:26 AM OPERATING ENGINEER APPRENTICE Pulse - - Temperature 35.9 C (96.7 F) 01/05/2020 9:26 AM OPERATING ENGINEER APPRENTICE Respiratory Rate 18 01/05/2020 9:26 AM OPERATING ENGINEER APPRENTICE Oxygen Saturation 96% 01/05/2020 9:26 AM OPERATING ENGINEER APPRENTICE Inhaled Oxygen Concentration - - Weight 143 kg (315 lb 3.2 oz) 01/05/2020 6:47 AM OPERATING ENGINEER APPRENTICE Height 162.6 cm (5' 4 ) 01/05/2020 6:47 AM OPERATING ENGINEER APPRENTICE Body Mass Index 54.1 01/05/2020 6:47 AM OPERATING ENGINEER APPRENTICE Plan of Treatment Health Maintenance Due Date [...] 75+ series) 2033 Insurance CARE IMPROVEMENT PLUS [facility] MD ISHMAEL [id number] [facility] DUAL COMPLETE [facility] PPO D-SNP Care Teams Family Court Justice Relationship Specialty Start Date End Date Art Rios MD [address] [place] [address] PCP - General Family Practice 04/07/13
--- OUTSIDE RECORDS SUMMARY | 2025-09-03 15:56 | XMS_ITS | Encounter Summary ---
Author Organization [place] [facility], [facility] Address [address] [place] [address] Phone Care Team Providers Care Credit Assessment Analyst Name Role Phone Unavailable Primary Care Provider Unavailabl e Encounter Details Date Type Department Care Team (Late st Contact Info) Description 08/29/2025 TCM in Dialysis Clinic [facility] [address] [place] [address] Elizabeth Grissom NP [address] [place] [address] Social History Tobacco Use Types Packs/Day Years Used Date Smoking Tobacco: Never Assessed Comments Unknown Sex and Gender Information Value Date Recorded Sex Assigned at Not on file Legal Sex Female 12:59 PM EST Gender Identity Not on file Sexual Orientation Not on file documented as of this encounter Progress Notes * Elizbaeth Grissom NP - 08/29/2025 12:00 AM CDT Patient: Berenice Pierce : 1960 Note Type: Dialysis TCM Service Date: 08/29/2025 The patient was seen for a psmy-ka-uwlz visit as part of Transitional Care Management services. Attending Director Supply Chain: LISA NEVAREZ Dialysis Location: [facility] Schedule: Shift: 1 INTERACTIVE CONTACT This ujgo-gq-[id number] visit occurred within 2 business days of the patient?s discharge. HOSPITALIZATION SUMMARY Patient transitioned from: Hospital Patient transitioned to: Home Admit Date: 08/24/2025 Discharge Date: 08/27/2025 Discharged info reviewed: No outstanding diagnostic tests and treatments Reason for admission: Patient admitted to [facility] 08/24-08/27. Missed dialysis x 1 week due to feeling poorly. Admitted to ICU at OSH for emergent dialysis due to hyperkalemia and acidosis. Had issues with AFIB RVR during hospital stay as well as bradycardia. MRI of right foot for concern of osteomyelitis which has been chronic issue. Podiatry there deemed chronic and did not advise IV antibiotics. Preliminary blood cultures are reported as negative. She continues to feel poorly. Having ongoing N/V/D. Feels weak. No better than before admission. Had 3 dialysis treatments in hospital. HOME MEDICATIONS Discharge med list reviewed and reconciled - no changes. Active treatment medication orders reviewed - no changes. COMMENTS: Nursing to update medication list. Amio once daily, uche added. Has not started as has not picked up from pharmacy. TREATMENT MEDICATIONS ORDERS Heparin Sodium (Porcine) 1,000 Units/mL Catheter Lock Arterial 2200 units Arterial Red Port Every Treatment Post Dialysis 05/09/2025 - 05/08/2026 Heparin Sodium (Porcine) 1,000 Units/mL Catheter Lock Venous 2300 units Venous Blue Port Every Treatment Post Dialysis 05/09/2025 - 05/08/2026 Heparin Sodium (Porcine) 1,000 Units/mL Systemic 1500 units IVP Every Treatment 05/12/2025 - 05/11/2026 Heparin Sodium (Porcine) 1,000 Units/mL Systemic 51685 units IVP Every Treatment 05/02/2025 - 05/01/2026 Iron Sucrose (Venofer) 50 mg IVP 1X Week During Dialysis 08/15/2025 - 08/14/2026 PHYSICAL EXAM Exam performed. Vital Signs Reviewed. CV - Blood pressure noted. CV - Irregularly irregular. 1+ edema. DIALYSIS PRESCRIPTION Dry weight during admission reviewed - no change to EDW. COMMENTS: work on getting back to dry weight Treatment Data Treatment Date: 08/29/2025 started at: 11:23 AM Dialysate / Machine Temp (prescribed): 37.0*C Dialysate / Machine Temp (actual): 37.0*C BFR (prescribed): 450 BFR (actual): 400 DFR (prescribed): Autoflow 2.0 DFR (actual): 800 Prescribed Time: 04:15 EDW (kg): 113.4 Dialyzer: Optiflux 200NRe Dialysate: 2.0 K, 2.5 Ca, 1.0 Mg, 100 Dextrose (N2251) Sodium: 137 Bicarb: 40 Pre Dialysis Vitals Pre BP Sit: 149/66 Pre Wt (kg): 120.9 EDW Deviation (kg): 7.5 Temp: 97.4*F Current Dialysis Vitals BP Sit: 158/48 AP/PHYSICAL INSTRUCTOR: 187/168 Pulse: 57 CARE COORDINATION Post-discharge follow-up appointments reviewed with the patient. COMMENTS: has appointments next week with PCP and podiatry in . EDUCATION Education relevant to the discharge diagnosis provided to the patient or caregiver IMPRESSION & PLAN COMMENTS: ESRD on HD, continue MWF MG. Encouraged compliance with treatments. Continue to UF as tolerated. Hypertension in CKD, controlled when taking medications and vol status stable. No changes. Low sodium diet. N/V/D-follow up with PCP. Return to ED if symptoms worsen. Discussed bland foods. VISIT DIAGNOSES CPT Code 89163 - High complexity, seen within 7 days of discharge. N18.6 End stage renal disease COMMENTS: ESRD on HD, continue MWF MG. Encouraged compliance with treatments. Continue to UF as tolerated. I12.0, N18.6 Hypertensive chronic kidney disease with stage 5 chronic kidney disease or end stage renal disease;End stage renal disease COMMENTS: Hypertension in CKD, controlled when taking medications and vol status stable. Monitor VS with treatment. No changes. Low sodium diet. Signed by: ELIZABETH GRISSOM NP on 08/29/2025 at 01:09:37 PM Transcribed by: ELIZABETH GRISSOM NP on 08/29/2025 at 12:07:53 PM documented in this encounter Plan of Treatment Not on file documented as of this encounter Visit Diagnoses Not on filedocumented in this encounter
--- OUTSIDE RECORDS SUMMARY | 2025-09-03 15:56 | XMS_ITS | Encounter Summary ---
Author Organization [email or web address], [facility] Address [address] [place] [address] Phone Care Team Providers Care Furnace Stock Inspector Name Role Phone Unavailable Primary Care Provider Unavailabl e Encounter Details Date Type Department Care Team (Late st Contact Info) Description 08/29/2025 Treatment [email or web address], [facility] [address] [place] [address] Elizabeth Gongora NP [address] [place] [address] End stage renal disease; Dependence on renal dialysis Social History Tobacco Use Types Packs/Day Years Used Date Smoking Tobacco: Never Assessed Comments Unknown Sex and Gender Information Value Date Recorded Sex Assigned at Not on file Legal Sex Female 12:59 PM EST Gender Identity Not on file Sexual Orientation Not on file documented as of this encounter Miscellaneous Notes * Dialysis Note - Elizabeth Gongora NP - 08/29/2025 12:00 AM CDT Patient: Berenice Pierce, 1960, 65y, F Dialysis Location: [place] Attending Yeast Maker: Anirudh Su Service Date: 08/29/2025 Service Provider: Elizabeth Gongora NP I met face to face with the patient today. OVERVIEW The patient presented with ESRD on dialysis Primary cause of renal failure: Type 2 diabetes mellitus with other diabetic kidney complication Comments: Missed treatment all week last week. Admitted at [facility] for N/V, vol overload, hyperkalemia.Had three treatments there. Had AF with RVR, amio adjusted. Supposed to be starting Eliquis but hasnot picked up medications yet. Still has ongoing N/V/D. CT abd without acute findings. Does not feel any better than when in to hospital. Drinking a large strawberry smoothie as she thought it may help. Discussed bland diet. Advised if symptoms worsen or do not improve, to go back to ED. Reported preliminary blood cultures neg. Medications and labs reviewed. HOME MEDICATIONS Home Medications: ropinirole 0.5 mg Humalog KwikPen Insulin (insulin lispro) 100 unit/mL, subcutaneously, Inject 22 unit three times a day with meals Increase by 2-10 units as needed for high blood sugar as directed NOT TAKING 05/22/25 amlodipine 5 mg, by mouth, Take 1 tablet once a day for high blood pressure hydralazine 100 mg, by mouth, Take 1 tablet three times a day Toujeo SoloStar U-300 Insulin (insulin glargine u-300 conc) 300 unit/mL (1.5 mL), subcutaneously, Inject 40 unit twice a day as directed NOT TAKING 05/22/25 calcium acetate(phosphat bind) 667 mg, by mouth, Take 1 capsule three times a day with meals Ozempic (semaglutide) 2 mg/dose (8 mg/3 mL), subcutaneously, Inject 2 mg once a week NOT TAKING 05/22/25 calcitriol 0.5 mcg, by mouth, Take 1 capsule once a day take with 0.25 mcg capsule for total daily dose of 0.75 mcg calcitriol 0.25 mcg, by mouth, Take 1 capsule once a day take with 0.5 mcg capsule for total daily dose of 0.75 mcg Renal Caps (b complex and c 20-folic acid) 1 mg, by mouth, Take 1 capsule once a day clonidine HCl (clonidine hcl) 0.1 mg, by mouth, Take 1 tablet every eight hours as directed for SBP?170 hydrocodone-acetaminophen 7.5-325 mg, by mouth, Take 1 tablet every four hours as needed for pain 1-2 tabs q4-6hours as needed for pain. levothyroxine 112 mcg, by mouth, Take 1 tablet every morning one hour before meals metoprolol tartrate 25 mg, by mouth, Take 1 tablet twice a day torsemide 100 mg, by mouth, Take 1 tablet once a day tizanidine 4 mg, by mouth, Take 1 tablet every eight to twelve hours as needed for muscle spasms ondansetron HCl (ondansetron hcl) 4 mg, by mouth, Take 1 tablet every four to six hours as needed for nausea Allergies: Sulfa (Sulfonamide Antibiotics), Levaquin, Bumex, Zosyn, Bactrim, levofloxacin, NSAIDS NON STEROIDAL ANTI INFLAMMATORY DRUG, diphenhydramine LAST HOSPITALIZATION Discharge Diagnosis: R11.0 Nausea R11.2 Nausea with vomiting, unspecified E87.5 Hyperkalemia E87.70 Fluid overload, unspecified Admission Date 08/24/25 Discharge Date 08/27/25 DIALYSIS PRESCRIPTION IHD 3x Week Start date: 08/13/25 Dialyzer: Optiflux 200NRe BFR: 450 DFR: Autoflow 2 Potassium: 2.0 Sodium: 137 EDW: 113.4 Duration: 4:15 Calcium: 2.5 Bicarb: 40 Rx updated on: 08/13/2025 TREATMENT ASSESSMENT Comments: BP labile Blood pressure controlled. No changes indicated. BP Sit Pre 08/15/2025: 174/64 08/13/2025: 154/35 08/11/2025: 147/90 BP Sit Post 08/15/2025: 158/67 08/13/2025: 169/55 08/11/2025: 163/46 Prescribed Tx time 08/15/2025: 4:15 08/13/2025: 4:15 08/11/2025: 4:15 Tx Duration 08/15/2025: 1:57 08/13/2025: 4:12 08/11/2025: 3:48 Missed Treatments 3 - last 30 days 5 - last 60 days 08/22 - recent FLUID ASSESSMENT Comments: non compliant Fluid status not acceptable. Interdialytic weight gain not acceptable. No changes indicated. EDW (kg) 08/15/2025: 113.4 08/13/2025: 113.8 08/11/2025: 113.8 Weight Pre (kg) 08/15/2025: 119.3 08/13/2025: 117.1 08/11/2025: 116.3 Weight Post (kg) 08/15/2025: 116.3 08/13/2025: 113.4 08/11/2025: 114.5 PWV (kg) 08/15/2025: 2.9 08/13/2025: -0.4 08/11/2025: 0.7 UF Rate (mL/kg/hr) 08/15/2025: 13.2 08/13/2025: 7.8 08/11/2025: 4.1 ADEQUACY ASSESSMENT Comments: labs pending spKt/V, URR 08/01/2025: 1.54, 73.0 06/30/2025: 1.45, 75.0 06/25/2025: 1.19, 65.0 ACCESS ASSESSMENT Access Type: CVCatheter Access SubType: Tunneled Access Status: Active (In Use) - 05/02/2024 Access Location: Chest Placed: 06/14/2023 Comments: Fistula thrombosed. Seeing Vascular Root, may need AVF in future. Vascular access reviewed. ANEMIA ASSESSMENT Comments: Missed treatments HGB, TSAT 08/11/2025: 10.8, - 08/04/2025: 11.0, - 07/28/2025: 10.6, 23.0 Ferritin 06/30/2025: 916.0 06/23/2025: 950.0 04/28/2025: 830.0 Mircera, IVP (mcg) 08/13/2025: 100 07/11/2025: 225 06/30/2025: 200 Iron Sucrose (Venofer) (mg) 08/15/2025: 50 08/11/2025: 100 08/06/2025: 100 BMM ASSESSMENT Comments: as above, not taking binders. Education provided. PTH, Intact 06/30/2025: 804.0 03/31/2025: 608.0 Calcium, Phosphorus 08/01/2025: 7.9, - 07/28/2025: 6.9, 10.2 06/30/2025: 7.8, 8.8 NUTRITION ASSESSMENT Comments: labs pending Potassium, Albumin 07/28/2025: 4.7, 3.6 06/30/2025: 5.7, 3.7 06/02/2025: 5.9, 3.8 eNPCR 08/01/2025: 0.79 06/30/2025: 0.79 06/25/2025: 0.8 PHYSICAL EXAM Comments: bowel sounds present, soft. Exam Performed. Vital Signs Reviewed. CV - Blood pressure noted. CV - Irregularly irregular. EXT - 1+ edema. DIAGNOSIS Chief Complaint: N18.6 End stage renal disease Patient is stable. Patient discussed with nursing. Patient data updated 08/29/2025 at 12:56 PM Signed By: Elizabeth Gongora NP on 08/29/2025 12:59:57 PM documented in this encounter Plan of Treatment Not on file documented as of this encounter Visit Diagnoses Diagnosis End stage renal disease Dependence on renal dialysis documented in this encounter
--- OUTSIDE RECORDS SUMMARY | 2025-09-03 15:56 | XMS_ITS | Clinical Summary ---
Author Organization [employer] Address [address] [facility] Attn: Epic Prelude ADT STEPHEN YATES [address] Care Team Providers Care Zookeeper Name Role Phone Art Rios MD Primary Care Provider [phone] Allergies Active Allergy Reactions Criticality Noted Date Comments Bumetanide Rash Low 05/12/2025 Diphenhydramine Hallucination,Deliri u m High 05/12/2025 Levofloxacin Rash Low 01/05/2020 Nsaids (Non-Steroidal Anti-Inflammatory Drug) Renal Dysfunctions Medium 01/05/2020 Piperacillin-Tazobactam Anaphylaxis,Itching High Sulfa (Sulfonamide Antibiotics) Unknown 05/12/2025 Sulfamethoxazole-Trimeth oprim Itching,Rash Low 05/12/2025 cant take because of kidneys Medications No known medications Encounters Date Type Department Care Team Description 08/26/2025 External Device Data ST[facility] ABSTRACTION Provider, Abstract [...] on file 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 [id number] [place] Care Teams Zookeeper Relationship Specialty Start Date End Date Art Rios MD [address] [place] [address] PCP - General Family Practice 04/07/13
--- OUTSIDE RECORDS SUMMARY | 2025-09-03 15:56 | XMS_ITS | Encounter Summary ---
Author Organization [employer] Address 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
--- OUTSIDE RECORDS SUMMARY | 2025-09-03 15:56 | XMS_ITS | Clinical Summary ---
Author Organization [facility], [facility] Address [address] [place] [address] Phone Care Team Providers Care Evp Strategy Name Role Phone Unavailable Primary Care Provider Unavailabl e Encounters Date Type Department Care Team Description 09/01/2025 [facility], [facility] [address] [place] [address] Anirudh Su MD 08/29/2025 Treatment [facility], [facility] [address] [place] [address] Elizabeth Gongora NP End stage renal disease; Dependence on renal dialysis 08/29/2025 [facility], [facility] [address] [place] [address] Elizabeth Gongora NP 08/13/2025 Treatment [facility], [facility] [address] [place] [address] Anirudh Su MD End stage renal disease; Dependence on renal dialysis 08/11/2025 Orders Only [facility], [facility] [address] [place] [address] Anirudh Su MD 08/04/2025 Orders Only [facility], [facility] [address] [place] [address] Anirudh Su MD 08/01/2025 Orders Only [facility], [facility] [address] [place] [address] Anirudh Su MD 08/01/2025 Treatment [facility], [facility] [address] [place] [address] Elizabeth Gongora, STEFANY End stage renal disease; Dependence on renal dialysis 07/28/2025 Orders Only [facility] [address] [place] [address] Anirudh Su MD 07/21/2025 Orders Only [facility], [facility] [address] [place] [address] Anirudh Su MD 07/16/[address] [facility], [facility] [address] [place] [address] Anirudh Su MD End stage renal disease; Dependence on renal dialysis 07/14/2025 Orders Only [facility], [facility] [address] [place] [address] Anirudh Su MD 07/11/2025 Treatment [facility], [facility] [address] [place] [address] Elizabeth Gongora NP End stage renal disease; Dependence on renal dialysis 07/07/2025 Orders Only [facility], [facility] [address] [place] [address] Anirudh Su MD 06/30/2025 Orders Only [facility] [address] [place] [address] Anirudh Su MD 06/25/2025 Orders Only [facility] [address] [place] [address] Anirudh Su MD 06/23/2025 Orders Only [facility] [address] [place] [address] Anirudh Su MD 06/16/2025 Orders Only [facility] [address] [place] [address] Anirudh Su MD 06/11/2025 Treatment [facility], [facility] [address] [place] [address] Anirudh Su MD End stage renal disease; Dependence on renal dialysis 06/11/2025 Orders Only [facility] [address] [place] [address] Anirudh Su MD 06/06/2025 Treatment [facility], [facility] [address] [place] [address] Elizabeth Gongora NP End stage renal disease; Dependence on renal dialysis from Last 3 Months Social History Tobacco Use Types Packs/Day Years Used Date Smoking Tobacco: Never Assessed Comments Unknown Sex and Gender Information Value Date Recorded Sex Assigned at Not on file Legal Sex Female 12:59 PM EST Gender Identity Not on file Sexual Orientation Not on file Plan of Treatment Health Maintenance Due Date Last Done Comments Breast Cancer Screening 1960 Hepatitis B Vaccine (1 of 5 - Risk Dialysis 4-dose series) 1978 01/24/2020 Colorectal Cancer Screening: Annual FOBT 2007 Colorectal Cancer Screening: Colonoscopy 2007 Colorectal Cancer Screening: Sigmoidoscopy 2007 Pneumococcal Vaccine: 50+ Ye ars (3 of 3 - PCV20 or PCV21) 03/25/2020 01/29/2020, 11/09/2012 Diabetes: Ophthalmology Exam 08/08/2020 Diabetes: Pedal Pulse Checked 08/08/2020 Diabetes: Sensory Foot Exam 08/08/2020 Diabetes: Visual Foot Exam 08/08/2020 Diabetes: Hemoglobin A1C 09/30/2025 025, 01/23/2025, 01/11/2025, Additional history exists Pneumococcal Vaccine: Peds ( 0 to 5 Years) and At-Risk Patients (6 to 49 Years) Discontinued 01/29/2020, 11/09/2012 Influenza Vaccine Completed 08/11/2025, 09/22/2023 Procedures Procedure Name Priority Date/Time Associated Diagnosis Comments HEMATOLOGY Routine 09/01/2025 HEMATOLOGY Routine 08/11/2025 HEMATOLOGY Routine 08/04/2025 [facility] RESULTS Routine 08/01/2025 HD KINETICS Routine 08/01/2025 POST CHEMISTRY Routine 08/01/2025 CHEMISTRY Routine 08/01/2025 POST CHEMISTRY Routine 07/28/2025 HEMATOLOGY Routine 07/28/2025 CHEMISTRY Routine 07/28/2025 HEMATOLOGY Routine 07/21/2025 HEMATOLOGY Routine 07/14/2025 HEMATOLOGY Routine 07/07/2025 [facility] RESULTS Routine 06/30/2025 HD KINETICS Routine 06/30/2025 POST CHEMISTRY Routine 06/30/2025 CHEMISTRY Routine 06/30/2025 SPECIAL CHEMISTRY Routine 06/30/2025 HEMATOLOGY Routine 06/30/2025 CHEMISTRY Routine 06/30/2025 [facility] RESULTS Routine 06/25/2025 HD KINETICS Routine 06/25/2025 CHEMISTRY Routine 06/25/2025 POST CHEMISTRY Routine 06/25/2025 CHEMISTRY Routine 06/23/2025 HEMATOLOGY Routine 06/23/2025 HEMATOLOGY Routine 06/16/2025 HEMATOLOGY Routine 06/11/2025 from Last 3 Months Results * (ABNORMAL) HEMATOLOGY (09/01/2025) Only the most recent of11 resultswithin the time period is included. Neutrophils 77.3(H) 40.0 - 75.0 % [facility] Lymphocytes Relative 10.6(L) 19.0 - 48.0 % [facility] Monocytes 7.0 3.0 - 10.0 % [facility] Eosinophils Relative 3.2 0.0 - 7.0 % [facility] Basophils Relative 1.0 0.0 - 1.5 % [facility] TAMIKO 1.1 0.0 - 4.0 % [facility] WBC 7.27 4.80 - 10.80 1000/mcL [facility] RBC 3.94(L) 4.20 - 5.40 mill/mcL [facility] Hematocrit 33.7(L) 37.0 - 47.0 % [facility] MCV 85 80 - 100 fl [facility] MCH 26.0(L) 27.0 - 31.0 pg [facility] MCHC 30.4 30.0 - 36.0 g/dL [facility] RDW 15.6(H) 11.5 - 14.5 % [facility] Hemoglobin 10.2(L) 12.0 - 16.0 g/dL [facility] Hemoglobin x 3 30.6(L) 36.0 - 48.0 % [facility] 09/01/2025 09/02/2025 10: 23 AM CDT Narrative [facility] - 09/02/2025 Unless otherwise specified, test(s) performed at: [facility], [address] [place] [id number] EMBEDDED SYSTEMS DESIGNER: Spencer Jerome M.D. For any questions, please call customer service at FREQUENCY:MONTHLY Resulting Agency Comment Specimen source: Blood Anirudh Su MD LAB BLOOD ORDERABLES Final Result Performing Organization Address City/[facility] Co de Phone Number [facility] See order comments or contact performing lab Unknown, [place] * HD KINETICS (08/01/2025) Only the most recent of3 resultswithin the time period is included. % Urea Reduction 73 65 - 80 % [facility] 08/01/2025 08/05/2025 9:2 6 AM CDT Narrative Resulting Agency Comment Specimen source: Plasma Anirudh Su MD LAB BLOOD ORDERABLES Final Result Performing Organization Address [facility] de Phone Number [facility] See order comments or contact performing lab Unknown, [place] * POST CHEMISTRY (08/01/2025) Only the most recent of4 resultswithin the time period is included. BUN Post Dialysis 11 6 - 19 mg/dL [facility] 08/01/2025 08/05/2025 9:2 6 AM CDT Narrative [facility] - 08/05/2025 Unless otherwise specified, test(s) performed at: [facility], [address] [place] [address] EMBEDDED SYSTEMS DESIGNER: Spencer Jerome M.D. For any questions, please call customer service at FREQUENCY:OTHER Resulting Agency Comment Specimen source: Plasma Anirudh Su MD LAB BLOOD ORDERABLES Final Result Performing Organization Address [facility] Co de Phone Number [facility] See order comments or contact performing lab Unknown, [place] * (ABNORMAL) [facility] (08/01/2025) Only the most recent of6 resultswithin the time period is included. BUN 41(H) 6 - 19 mg/dL [facility] Calcium 7.9(L) 8.4 - 10.2 mg/dL [facility] 08/01/2025 08/05/2025 9:3 5 AM CDT Narrative [facility] - 08/05/2025 Unless otherwise specified, test(s) performed at: [facility], [address] [place] [address] EMBEDDED SYSTEMS DESIGNER: Spencer Jerome M.D. For any questions, please call customer service at FREQUENCY:OTHER Resulting Agency Comment Specimen source: Serum Anirudh Su MD LAB BLOOD ORDERABLES Final Result Performing Organization Address City/[facility]/ZIP Co de Phone Number [facility] See order comments or contact performing lab Unknown, [place] * [facility] Results (08/01/2025) Only the most recent of3 resultswithin the time period is included. Pathologist [facility] WSTDKT/V 2.4 [facility] nPCR_HD 0.83 [facility] eNPCR 0.79 [facility] PCR 70.99 [facility] spKt/V Gotch 1.58 [facility] eKt/V Gotch 1.39 Know[facility]g e Center eKdrt/V 1.39 [facility] eKt/V ([place]) 1.35 [facility] spKt/V (Daugirdas II) 1.54 [facility] 08/01/2025 08/01/2025 Result [facility] Ordering Provider LAB BLOOD ORDERABLES Final Result Performing Organization Address City/[facility]/ZIP Co de Phone Number [facility] Contact Performing lab Unknown, [place] * SPECIAL CHEMISTRY (06/30/2025) [facility] Hemoglobin A1C 5.9 4.8 - 5.9 % [facility] 06/30/2025 07/01/2025 10: 17 AM CDT Narrative [facility] - 07/01/2025 Unless otherwise specified, test(s) performed at: [facility], [address] [place], [place] [id number] EMBEDDED SYSTEMS DESIGNER: Spencer Jerome M.D. For any questions, please call customer service at FREQUENCY:MONTHLY Resulting Agency Comment Specimen source: Blood us Anirudh Su MD LAB BLOOD BANK TEST O RDERABLES Final Result [facility] See order comments or contact performing lab Unknown, [place] from Last [address] [place] [address] [employer] [place]
--- OUTSIDE RECORDS SUMMARY | 2025-09-03 15:57 | XMS_ITS | Encounter Summary ---
Author Organization [facility], [facility] Address [address] [place] [address] Phone Care Team Providers Care Worm Picker Name Role Phone Unavailable Primary Care Provider Unavailabl e Encounter Details Date Type Department Care Team (Late st Contact Info) Description 09/01/2025 Orders Only [place] [facility], [facility] [address] [place] [address] Anirudh Su MD [address] [place] [address] Social History Tobacco Use Types Packs/Day Years Used Date Smoking Tobacco: Never Assessed Comments Unknown Sex and Gender Information Value Date Recorded Sex Assigned at Not on file Legal Sex Female 12:59 PM EST Gender Identity Not on file Sexual Orientation Not on file documented as of this encounter Plan of Treatment Not on file documented as of this encounter Procedures Procedure Name Priority Date/Time Associated Diagnosis Comments HEMATOLOGY Routine 09/01/2025 documented in this encounter Results * (ABNORMAL) HEMATOLOGY (09/01/2025) Neutrophils 77.3(H) 40.0 - 75.0 % [facility] [...] 09/02/2025 Unless otherwise specified, test(s) performed at: [facility], [address] [place] [address] WORKERS COMPENSATION CLAIMS SPECIALIST: Spencer Jerome M.D. For any questions, please call customer service at FREQUENCY:MONTHLY Resulting Agency Comment Specimen source: Blood Anirudh Su MD LAB BLOOD ORDERABLES Final Result [facility] See order comments or contact performing lab Unknown, [place] documented in this encounter Visit Diagnoses Not on filedocumented in this encounter
[2025-09-03 16:00] VITALS: BP 133/90; PULSE 64; RESP 18; TEMP 36.6; O2SAT 94
--- NOTE | 2025-09-03 16:06 | PM.CONSULT ---
Providers/Reason For Consult Consulting Physician/Specialty*: Kahlil Griggs.P.M./podiatry Reason for Consult*: Right foot wounds Attending Physician: Ruben Pink MD Primary Care Provider: Lexis Ring MD History of Present Illness History of Present Illness Berenice Pierce is a 65 year old female past medical history type 2 diabetes ESRD on dialysis who was seen in podiatry clinic today. Patient was noted to have a worsening right foot infection in comparison to previous evaluation as inpatient in the hospital earlier this month. Patient also had subjective fever chills nausea. She did miss dialysis prior to presentation to podiatry clinic. She was a direct admit for IV antibiotics and further workup and evaluation. I was consulted to evaluate and provide further treatment recommendations. At bedside patient states that for the past few days she has been feeling unwell. Right foot is possible source. However patient also complains of left ear pain/earache. She wonders if she does not have an ear infection. Review of Systems General: Reports: 10 or more systems reviewed and unremarkable except in HPI and below Const: Denies: fever(s), chills, body aches or change in appetite Eyes: Denies: change in vision or blurry vision Card: Denies: chest pain, palpitations or irregular heart rhythm Resp: Denies: dyspnea GI: Denies: abdominal pain, nausea, vomiting or diarrhea Musc: Reports: joint stiffness Skin/Breast: Reports: non-healing lesions and lesions Neuro: Reports: numbness in extremities Medications/Allergies Home Medications ?Medication ?Instructions ?Recorded ?Confirmed ?Last Taken ?Type albuterol sulfate 2.5 mg/3 mL 2.5 mg inhalation Q6H 12/25/24 09/03/25 08/20/25 18:00 History (0.083 %) solution for nebulization calcitriol 0.25 mcg capsule 0.25 mcg PO DAILY 12/25/24 09/03/25 09/03/25 05:00 History hydrocodone 7.5 mg-acetaminophen 1 - 2 tab PO .Q4-6H 12/25/24 09/03/25 09/03/25 05:00 History 325 mg tablet levothyroxine 112 mcg tablet 112 mcg PO DAILY 12/25/24 09/03/25 08/24/25 History metoprolol tartrate 25 mg tablet 25 mg PO BID 12/25/24 09/03/25 08/24/25 History ropinirole 0.25 mg tablet 0.25 mg PO TID 12/25/24 09/03/25 08/24/25 History vitamin B complex and vitamin C 1 cap PO DAILY 12/25/24 09/03/25 Unknown History no.20-folic acid 1 mg capsule (Benedicta Caps) budesonide 0.5 mg/2 mL suspension 0.5 mg (2 mL) inhalation 01/02/25 09/03/25 08/09/25 16:00 Rx for nebulization BID.RESPIRATORY #100 mL hydralazine 100 mg tablet 100 mg PO TID 08/25/25 09/03/25 09/03/25 05:00 History tizanidine 4 mg tablet 4 mg PO Q8H 08/25/25 09/03/25 08/24/25 History torsemide 100 mg tablet 100 mg PO DAILY 08/25/25 09/03/25 08/24/25 History amiodarone 200 mg tablet (Pacerone) 200 mg PO DAILY #30 tabs 08/27/25 09/03/25 09/03/25 05:00 Rx apixaban 5 mg tablet (Eliquis) 5 mg PO BID@0900,2100 #60 tabs 08/27/25 09/03/25 Unknown Rx insulin glargine U-300 conc 300 10 unit (0.0333 mL) SUBCUT BEDTIME 08/27/25 09/03/25 08/27/25 05:00 Rx unit/mL (3 mL) subcutaneous pen #1 mL (Toujeo Max U-300 SoloStar) sevelamer carbonate 800 mg tablet 800 mg PO TID #90 tabs 08/27/25 09/03/25 Unknown Rx Allergies Allergy/AdvReac Type Severity Reaction Status Date / Time bumetanide Allergy Unknown Unknown Verified 09/03/25 10:12 sulfamethoxazole (From Allergy Unknown Unknown Verified 09/03/25 10:12 Bactrim) trimethoprim (From Bactrim) Allergy Unknown Unknown Verified 09/03/25 10:12 ceftriaxone Allergy ALGY-Difficulty Verified 09/03/25 10:12 Breathing levofloxacin (From Levaquin) Allergy ADR-Itching Verified 09/03/25 10:12 NSAIDS (Non-Steroidal Allergy Unknown Verified 09/03/25 10:12 Anti-Inflamma PFSH Acute PFSH: Medical History (Updated 09/03/25 @ 17:43 by Ruben Pink MD) Missed dialysis Chronic osteomyelitis Infection of hemodialysis catheter ESRD on dialysis Chronic ulcer of right foot Poor intravenous access Elevated troponin Respiratory syncytial virus Uremia Headache 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 analgesic Pain management contract signed Lumbar stenosis with neurogenic claudication Seizure PRES (posterior reversible encephalopathy syndrome) RLS (restless legs syndrome) TARA (obstructive sleep apnea) Chronic antibiotic suppression Staphylococcus epidermidis bacteremia Diastolic heart failure H/O staphylococcal septicemia Hyperglycemia Cellulitis Thyroid disease Chronic back pain HTN (hypertension) Obesity Surgical History 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 H/O: hysterectomy Arteriovenous fistula History of tonsillectomy History of cholecystectomy History of back surgery History of appendectomy History of adenoidectomy Family History Other Cancer Social History Smoking and tobacco/nicotine status: never used tobacco/nicotine Alcohol intake: never Substance/Drug Use: never Lives independently: Yes Household members: spouse Housing: House Marital status: Vitals/I&O/Wt Last Vital Signs Temp 97.9 F 09/03/25 16:00 Pulse 64 09/03/25 16:00 Resp 18 09/03/25 16:00 BP 133/90 09/03/25 16:00 Pulse Ox 94 09/03/25 16:00 O2 Del Method Nasal Cannula 09/03/25 16:00 Physical Exam Narrative: EXAM NARRATIVE: GENERAL: Patient is alert and oriented ?3 and in no acute distress. The following is a focused right lower extremity exam. Utilizes an electric scooter or has a cam boot for offloading. VASCULAR: Dorsalis pedis decreased, posterior tibial arteries palpable. Capillary refill time less than 3 seconds to the distal hallux bilaterally. Calf is supple and nontender proximally and distally. Decreased pedal hair growth. NEUROLOGICAL: Protective sensation intact 0/10 sites, tested with [place] Phan monofilament to bilateral feet. DERMATOLOGICAL: Grade 2 wound down to subcutaneous layer right foot subcuboid and 4th and 5th metatarsal base as well as right posterior heel with serous drainage, malodor and macerated margin does not probe to bone. 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 Data 09/04/25 05:02 09/04/25 05:02 A&P Assessment and plan 1. Diabetic ulcer of right foot associated with diabetes mellitus due to underlying condition, with fat layer exposed, unspecified part of foot: 2. Type 2 diabetes mellitus: 3. Diabetic infection of right foot: Plan: - Right foot full-thickness ulcerations -Labs and vitals reviewed -WBC 6.2 -ESR 43 - VSS -Cultures preliminary showing GNR's and GPC's -Abx Vanco/meropenem -Diet: Okay for diet -Awaiting MRI right foot to evaluate for osteomyelitis. Findings of MRI will dictate intervention moving forward -Pain Mgmt: Per primary team -Weight bearing: Nonweightbearing to right foot -Dressings: Hydrofera Blue, dry sterile dressing daily -Continue current Abx therapy until ID and Sensitivity results -Trend labs -Discharge plan: To be determined -Podiatry will continue to round on patient daily and provide recommendations PDMP PDMP Reviewed: Not Reviewed Coding Level of Care Code Acute Code for Chg Fwd Diagnoses Diabetic ulcer of right foot associated with diabetes mellitus due to underlying condition, with fat layer exposed, unspecified part of foot E08.621; L97.512 Diabetic foot ulcer location: unspecified part of foot Laterality: right Non-pressure ulcer stage: with fat layer exposed Type 2 diabetes mellitus E11.9 Diabetic infection of right foot E11.628; L08.9
[2025-09-03 16:21] VITALS: O2SAT 98
[2025-09-03 16:48] VITALS: BP 133/90; PULSE 64; RESP 18; TEMP 36.6
--- NOTE | 2025-09-03 17:36 | PM.HP ---
Providers/Chief Complaint Admitting Physician: Ruben Pink MD Primary Care Provider: Lexis Ring MD Chief Complaint: R Foot Ulcer Cellulitis History of Present Illness Berenice Pierce is a 65 year old female with a past medical history of diabetic foot infections, type 2 diabetes mellitus, end-stage renal disease on dialysis, hypothyroidism, obstructive sleep apnea, hypertension, who presents to [facility] from podiatry clinic for concerns for right foot diabetic foot infection, patient reports that she has been having increased drainage from her right foot wound, subjective fevers, chills, Review of Systems Const: Reports: fever(s) and chills Card: Denies: chest pain Resp: Denies: dyspnea Medications/Allergies Home Medications ?Medication ?Instructions ?Recorded ?Confirmed ?Last Taken ?Type albuterol sulfate 2.5 mg/3 mL 2.5 mg inhalation Q6H 12/25/24 09/03/25 08/20/25 18:00 History (0.083 %) solution for nebulization calcitriol 0.25 mcg capsule 0.25 mcg PO DAILY 12/25/24 09/03/25 09/03/25 05:00 History hydrocodone 7.5 mg-acetaminophen 1 - 2 tab PO .Q4-6H 12/25/24 09/03/25 09/03/25 05:00 History 325 mg tablet levothyroxine 112 mcg tablet 112 mcg PO DAILY 12/25/24 09/03/25 08/24/25 History metoprolol tartrate 25 mg tablet 25 mg PO BID 12/25/24 09/03/25 08/24/25 History ropinirole 0.25 mg tablet 0.25 mg PO TID 12/25/24 09/03/25 08/24/25 History vitamin B complex and vitamin C 1 cap PO DAILY 12/25/24 09/03/25 Unknown History no.20-folic acid 1 mg capsule (Antoni Caps) budesonide 0.5 mg/2 mL suspension 0.5 mg (2 mL) inhalation 01/02/25 09/03/25 08/09/25 16:00 Rx for nebulization BID.RESPIRATORY #100 mL hydralazine 100 mg tablet 100 mg PO TID 08/25/25 09/03/25 09/03/25 05:00 History tizanidine 4 mg tablet 4 mg PO Q8H 08/25/25 09/03/25 08/24/25 History torsemide 100 mg tablet 100 mg PO DAILY 08/25/25 09/03/25 08/24/25 History amiodarone 200 mg tablet (Pacerone) 200 mg PO DAILY #30 tabs 08/27/25 09/03/25 09/03/25 05:00 Rx apixaban 5 mg tablet (Eliquis) 5 mg PO BID@0900,2100 #60 tabs 08/27/25 09/03/25 Unknown Rx insulin glargine U-300 conc 300 10 unit (0.0333 mL) SUBCUT BEDTIME 08/27/25 09/03/25 08/27/25 05:00 Rx unit/mL (3 mL) subcutaneous pen #1 mL (Toujeo Max U-300 SoloStar) sevelamer carbonate 800 mg tablet 800 mg PO TID #90 tabs 08/27/25 09/03/25 Unknown Rx Allergies Allergy/AdvReac Type Severity Reaction Status Date / Time bumetanide Allergy Unknown Unknown Verified 09/03/25 10:12 sulfamethoxazole (From Allergy Unknown Unknown Verified 09/03/25 10:12 Bactrim) trimethoprim (From Bactrim) Allergy Unknown Unknown Verified 09/03/25 10:12 ceftriaxone Allergy ALGY-Difficulty Verified 09/03/25 10:12 Breathing levofloxacin (From Levaquin) Allergy ADR-Itching Verified 09/03/25 10:12 NSAIDS (Non-Steroidal Allergy Unknown Verified 09/03/25 10:12 Anti-Inflamma PFSH Acute PFSH: Medical History Missed dialysis Chronic osteomyelitis Infection of hemodialysis catheter ESRD on dialysis Chronic ulcer of right foot Poor intravenous access Elevated troponin Respiratory syncytial virus Uremia 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 analgesic Pain management contract signed Lumbar stenosis with neurogenic claudication Seizure PRES (posterior reversible encephalopathy syndrome) RLS (restless legs syndrome) TARA (obstructive sleep apnea) Chronic antibiotic suppression Staphylococcus epidermidis bacteremia Diastolic heart failure H/O staphylococcal septicemia Hyperglycemia Cellulitis Thyroid disease Chronic back pain HTN (hypertension) Obesity Surgical History 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 H/O: hysterectomy Arteriovenous fistula History of tonsillectomy History of cholecystectomy History of back surgery History of appendectomy History of adenoidectomy Family History Other Cancer Social History Smoking and tobacco/nicotine status: never used tobacco/nicotine Alcohol intake: never Substance/Drug Use: never Lives independently: Yes Household members: spouse Housing: House Marital status: Vitals/I&O/Wt Last Vital Signs Temp 97.9 F 09/03/25 16:48 Pulse 64 09/03/25 16:48 Resp 18 09/03/25 16:48 BP 133/90 09/03/25 16:48 Pulse Ox 94 09/03/25 16:00 O2 Del Method Nasal Cannula 09/03/25 16:00 Weight last 48 hrs Weight 118.388 kg Physical Exam Const: COMMON NORMALS: no acute distress and patient oriented x3 ORIENTATION/CONSCIOUSNESS: Yes awake, Yes oriented to person, Yes oriented to place and Yes oriented to time Eye: COMMON NORMALS: Equal, round and reactive pupils present Resp: COMMON NORMALS: normal respiratory effort, No retractions, No use of accessory muscles and clear to auscultation bilaterally AUSCULTATION: clear to auscultation bilaterally Cardio: COMMON NORMALS: regular rate, regular rhythm, S1 normal heart sound present and S2 normal heart sound present RATE: regular rate RHYTHM: regular rhythm HEART SOUNDS: S1 normal heart sound present and S2 normal heart sound present GI: COMMON NORMALS: Normal to inspection, nondistended, normoactive bowel sounds present, Soft to palpation and non-tender Extremity: COMMON NORMALS: no pedal edema NARRATIVE EXTREMITY EXAM: Right lower extremity wound wrapped - Picture of right lower extremity wound and Dr. Bowers's note observed Psych: COMMON NORMALS: mental status grossly normal A&P Assessment and plan 1. Diabetic infection of right foot: 2. Type 2 diabetes mellitus: 3. ESRD on dialysis: 4. RLS (restless legs syndrome): 5. TARA (obstructive sleep apnea): 6. Missed dialysis: Plan: Right diabetic foot infection Plan -Dr. Villar would like to repeat an MRI right foot ordered - CBC, CMP, sed rate, blood cultures, lactic acid -Follow wound cultures - Start of IV vancomycin - IV meropenem End-stage renal disease on dialysis, patient did not receive dialysis this morning, nephrology consulted - Does not appear to be fluid overloaded, but will do a CBC, CMP Type 2 diabetes mellitus, low-dose sliding scale Full code Eliquis for DVT prophylaxis PDMP PDMP Reviewed: Not Reviewed Attestations Medical Necessity Statement*: Patient requires hospitalization, inpatient, greater than 2 midnights, for right diabetic foot infection Diagnoses Diabetic infection of right foot E11.628; L08.9 Type 2 diabetes mellitus E11.9 ESRD on dialysis N18.6; Z99.2 RLS (restless legs syndrome) G25.81 TARA (obstructive sleep apnea) G47.33 Missed dialysis
[2025-09-03 17:52] LABS: Hematocrit 30.4 % (36-47); Hemoglobin 9.30 g/dL (11.27-16.99); Mean Corpuscular HGB Conc 30.6 g/dL (30-55); Mean Corpuscular Hemoglobin 25.9 pg (27-33); Mean Corpuscular Volume 84.7 fl (85-98); Nucleated Red Blood Cells % 0 %; Platelet Count 112 10^3/cmm (157-399); Red Blood Count 3.59 10^6/uL (3.85-5.65); White Blood Count 6.22 10^3/uL (3.29-11.43)
[2025-09-03 18:13] LABS: INR 1.04 (0.8-1.2); Partial Thromboplastin Time 30.9 SECONDS (23.9-36.7); Prothrombin Time 14.30 SECONDS (12.1-14.9)
[2025-09-03 18:15] LABS: Lactic Sepsis W/Reflex 1.3 mmol/L (0.5-2.2)
[2025-09-03 18:28] LABS: NT Pro B Type Natriuretic Pept 13498 pg/mL (0-125); Procalcitonin 0.37 ng/mL (0-0.5); Thyroid Stimulating Hormone 4.89 uIU/mL (0.27-4.20)
[2025-09-03 18:41] LABS: Alanine Aminotransferase 18 U/L (0-33); Albumin Level 3.8 g/dL (3.5-5.2); Alkaline Phosphatase 186 U/L (35-105); Anion Gap 19.4 (5-19); Aspartate Amino Transferase 22 U/L (0-32); Blood Urea Nitrogen 40 mg/dL (8-23); Calcium 7.8 mg/dL (8.5-10.5); Carbon Dioxide 26 mmol/L (22-29); Chloride 97 mmol/L (98-107); Cholesterol 121 mg/dL (0-200); Creatinine Clr Calc Pharmacy 10.3128; Globulin 3.5 g/dL (1.3-4.6); Glucose 159 mg/dL (65-115); HDL Cholesterol 53 mg/dL (60-100); Magnesium 2.2 mg/dL (1.7-2.3); Osmolality Calculated 299 mOsm/kg (285-295); Potassium 4.4 mmol/L (3.5-5.1); Sodium 138 mmol/L (136-145); Total Protein 7.3 g/dL (6.6-8.7); Triglycerides 77 mg/dL (0-150)
[2025-09-03] MEDS: pantoprazole 40 mg SDV IVP (18:43)
[2025-09-03 18:50] LABS: Estmated Average Glucose 120; Hemoglobin A1C 5.8 % (4.0-6.0)
--- NOTE | 2025-09-03 19:32 | PC.NURSE ---
Notified Dr. Pink of critical creatinine of 6.7 and High blood pressure. Just gave metoprolol and will take pressure again in about [address] Pink stated patient needs dialysis and will do tomorrow.
[2025-09-03 19:50] VITALS: BP 167/57; PULSE 65; RESP 16; TEMP 36.4; O2SAT 96
[2025-09-03 20:54] LABS: MRSA PCR OZH (swab) NOT DETECTED (Not Detecte)
[2025-09-03] MEDS: meropenem 1,000 mg SDV 1000 MG IVP (21:08)
[2025-09-03 21:28] VITALS: BP 176/89
[2025-09-03] MEDS: HYDROcodone-acetaminophen 7.5-325 mg Tablet 1 TAB PO (22:40)
[2025-09-04] VITALS (15 sets, daily range): BP systolic 135–216; BP diastolic 61–77; PULSE 56–64; RESP 16–92; TEMP 36.4–36.9; O2SAT 92–96
[2025-09-04] MEDS: HYDROcodone-acetaminophen 7.5-325 mg Tablet 1 TAB PO ×4 (03:44→22:21)
[2025-09-04 05:11] LABS: Hematocrit 29.7 % (36-47); Hemoglobin 8.90 g/dL (11.27-16.99); Mean Corpuscular HGB Conc 30.0 g/dL (30-55); Mean Corpuscular Hemoglobin 25.9 pg (27-33); Mean Corpuscular Volume 86.6 fl (85-98); Nucleated Red Blood Cells % 0 %; Platelet Count 101 10^3/cmm (157-399); Red Blood Count 3.43 10^6/uL (3.85-5.65); White Blood Count 5.69 10^3/uL (3.29-11.43)
[2025-09-04 05:22] LABS: Glucose Urine UA 1+ (Normal); Nitrate Urine Negative (Negative); Specific Gravity, Urine 1.018 (1.005-1.030)
[2025-09-04 05:27] LABS: Add Urine Microscopic? YES
[2025-09-04 05:31] LABS: Alanine Aminotransferase 16 U/L (0-33); Albumin Level 3.6 g/dL (3.5-5.2); Alkaline Phosphatase 162 U/L (35-105); Anion Gap 20.5 (5-19); Aspartate Amino Transferase 16 U/L (0-32); Blood Urea Nitrogen 41 mg/dL (8-23); Calcium 7.5 mg/dL (8.5-10.5); Carbon Dioxide 26 mmol/L (22-29); Chloride 98 mmol/L (98-107); Creatinine Clr Calc Pharmacy 10.9675; Globulin 3.0 g/dL (1.3-4.6); Glucose 139 mg/dL (65-115); Magnesium 2.1 mg/dL (1.7-2.3); Osmolality Calculated 302 mOsm/kg (285-295); Potassium 4.5 mmol/L (3.5-5.1); Sodium 140 mmol/L (136-145); Total Protein 6.6 g/dL (6.6-8.7)
[2025-09-04 05:37] LABS: Procalcitonin 0.33 ng/mL (0-0.5)
[2025-09-04 05:49] LABS: NT Pro B Type Natriuretic Pept 11989 pg/mL (0-125)
--- OUTSIDE RECORDS SUMMARY | 2025-09-04 06:42 | XMS_ITS | Encounter Summary ---
Author Organization [facility], [facility] Address [address] [place] [address] Phone Care Team Providers Care Poultry Offal Icer Name Role Phone Unavailable Primary Care Provider Unavailabl e Encounter Details Date Type Department Care Team (Late st Contact Info) Description 08/29/2025 TCM in Dialysis [facility] [address] [place] [address] Elizabeth Grissom NP [address] [place] [address] Social History Tobacco Use Types Packs/Day Years Used Date Smoking Tobacco: Never Assessed Comments Unknown Sex and Gender Information Value Date Recorded Sex Assigned at Not on file Legal Sex Female 12:59 PM EST Gender Identity Not on file Sexual Orientation Not on file documented as of this encounter Progress Notes * Elizabeth Grissom NP - 08/29/2025 12:00 AM CDT Patient: Berenice Pierce : 1960 Note Type: Dialysis TCM Service Date: 08/29/2025 The patient was seen for a [id number] visit as part of Transitional Care Management services. Attending [employer]: LISA NEVAREZ Dialysis Location: [facility] Schedule: Shift: 1 INTERACTIVE CONTACT This [id number] visit occurred within 2 business days of the patient?s discharge. HOSPITALIZATION SUMMARY Patient transitioned from: Hospital Patient transitioned to: Home Admit Date: 08/24/2025 Discharge Date: 08/27/2025 Discharged info reviewed: No outstanding diagnostic tests and treatments Reason for admission: Patient admitted to [facility] 08/24-08/27. Missed dialysis x 1 week due [...] 05/11/2026 Heparin Sodium (Porcine) 1,000 Units/mL Systemic 24846 units IVP Every Treatment 05/02/2025 - 05/01/2026 [...] 97.4*F Current Dialysis Vitals BP Sit: 158/48 AP/CANOE INSPECTOR FINAL: 187/168 Pulse: 57 CARE COORDINATION Post-discharge follow-up [...] Discussed bland foods. VISIT DIAGNOSES CPT Code 68049 - High complexity, seen within 7 days [...]
--- OUTSIDE RECORDS SUMMARY | 2025-09-04 06:42 | XMS_ITS | Clinical Summary ---
Author Organization [place] [facility], [facility] Address [address] [place] [address] Phone Care Team Providers Care Aeronautical Research Engineer Name Role Phone Unavailable Primary Care Provider Unavailabl e Encounters Date Type Department Care Team Description 09/01/2025 Orders Only [facility], [facility] [address] [place] [address] Anirudh Su MD 08/29/2025 Treatment [facility], [facility] [address] [place] [address] Elizabeth Gongora NP End stage renal disease; Dependence on renal dialysis 08/29/2025 [facility] in Dialysis Clinic [facility], [facility] [address] [place] [address] Elizabeth Gongora NP 08/13/2025 Treatment [facility], [facility] [address] [place] [address] Anirudh Su MD End stage renal disease; Dependence on renal dialysis 08/11/2025 Orders Only [facility], [facility] [address] [place] [address] Anirudh Su MD 08/04/2025 Orders Only [facility], [facility] [address] [place] [address] Anirudh Su MD 08/01/2025 Orders Only [facility] [place] [facility], [facility] [address] [place] [address] Anirudh Su MD 08/01/2025 Treatment [facility], [facility] [address] [place] [address] Elizabeth Gongora, STEFANY End stage renal disease; Dependence on renal dialysis 07/28/2025 Orders Only [facility] [address] [place] [address] Anirudh Su MD 07/21/2025 Orders Only [facility], [facility] [address] [place] [address] Anirudh Su MD 07/16/2025 [facility], [facility] [address] [place] [address] Anirudh Su MD End stage renal disease; Dependence on renal dialysis 07/14/2025 Orders Only [facility], [facility] [address] [place] [address] Anirudh Su MD 07/11/2025 Treatment [facility], [facility] [address] [place] [address] Elizabeth Gongora NP End stage renal disease; Dependence on renal dialysis 07/07/2025 Orders Only [facility], [facility] [address] [place] [address] Anirudh Su MD 06/30/2025 Orders Only [facility] [address] [place] [address] Anirudh Su MD 06/25/2025 Orders Only [facility] [address] [place] [address] Anirudh Su MD 06/23/2025 Orders Only [facility] [address] [place] [address] Anirudh Su MD 06/16/2025 Orders Only [facility] [address] [place] [address] Anirudh Su MD 06/11/2025 Treatment [facility], [facility] [address] [place] [address] Anirudh Su MD End stage renal disease; Dependence on renal dialysis 06/11/2025 Orders Only [facility] [address] [place] [address] Anirudh Su MD 06/06/2025 Treatment [facility], [facility] [address] [place] [address] Elizabeth Gongora NP End stage [...] Procedure Name Priority Date/Time Associated Diagnosis Comments CHEMISTRY Routine 09/01/2025 HEMATOLOGY Routine 09/01/2025 HEMATOLOGY Routine 08/11/2025 HEMATOLOGY [...] 09/02/2025 Unless otherwise specified, test(s) performed at: [facility], [address] [place] [address] SPINNERET CLEANER: Spencer Jerome M.D. For any questions, please call customer service at FREQUENCY:MONTHLY Resulting Agency Comment Specimen source: Blood us Anirudh Su MD LAB BLOOD ORDERABLES Final Result [facility] See order comments or contact performing lab Unknown, [place] * (ABNORMAL) [facility] (09/01/2025) Only the most recent of7 resultswithin the time period is included. BUN 45(H) 6 - 19 mg/dL [facility] Creatinine 6.98(H) 0.60 - 1.30 mg/dL [facility] BUN/Creatinine Ratio 6.4(L) 10.0 - 20.0 [facility] Sodium 138 136 - 145 mEq/L [facility] Potassium 5.3(H) 3.5 - 5.1 mEq/L [facility] Chloride 98 96 - 108 mEq/L [facility] Bicarbonate (CO2) 24 22 - 29 mEq/L [facility] Calcium 8.0(L) 8.4 - 10.2 mg/dL [facility] Corrected Calcium 8.2(L) 8.4 - 10.2 mg/dL [facility] Comment: Corrected Calcium is not equivalent to measured Ionized Calcium. Phosphorus 7.1(H) 2.6 - 4.5 mg/dL [facility] Calcium Phosphorus Product 57(H) 0 - 54 [facility] Calcium Phosporus Product, Cor 58(H) 0 - 54 [facility] Total Protein 7.4 6.0 - 8.5 g/dL [facility] Albumin 3.8 3.5 - 5.2 g/dL [facility] Globulin, Total 3.6 2.0 - 4.0 g/dL [facility] A/G Ratio 1.1 1.0 - 2.0 [facility] Iron 62 30 - 160 mcg/dL [facility] UIBC 130(L) 155 - 355 mcg/dL [facility] TIBC 192 185 - 515 mcg/dL [facility] Iron Saturation (TSat) 32 20 - 55 % [facility] 09/01/2025 09/03/2025 11: 02 AM CDT Narrative [facility] - 09/03/2025 Unless otherwise specified, test(s) performed at: [facility], [address] [place] [id number] SPINNERET CLEANER: Spencer Jerome M.D. For any questions, please call customer service at FREQUENCY:MONTHLY Resulting Agency Comment Specimen source: Serum Anirudh Su MD LAB BLOOD ORDERABLES Final Result Performing Organization Address City/[facility]/ZIP Co de Phone Number [facility] See order comments or contact performing lab Unknown, [place] * HD KINETICS (08/01/2025) Only the most recent of3 resultswithin the time period is included. % Urea Reduction 73 65 - 80 % [facility] 08/01/2025 08/05/2025 9:2 6 AM CDT Narrative Resulting Agency Comment Specimen source: Plasma Anirudh Su MD LAB BLOOD ORDERABLES Final Result Performing Organization Address [facility] Co de Phone Number [facility] See order comments or contact performing lab Unknown, [place] * POST CHEMISTRY (08/01/2025) Only the most recent of4 resultswithin the time period is included. BUN Post Dialysis 11 6 - 19 mg/dL [facility] 08/01/2025 08/05/2025 9:2 6 AM CDT Narrative [facility] - 08/05/2025 Unless otherwise specified, test(s) performed at: [facility], [address] [place] [address] SPINNERET CLEANER: Spencer Jerome M.D. For any questions, please call customer service at FREQUENCY:OTHER Resulting Agency Comment Specimen source: Plasma Anirudh Su MD LAB BLOOD ORDERABLES Final Result Performing Organization Address City/[facility]/ZIP Co de Phone Number [facility] See order comments or contact performing lab Unknown, [place] * [facility] Results (08/01/2025) Only the most recent of3 resultswithin the time period is included. WSTDKT/V 2.4 [facility] nPCR_HD 0.83 [facility] eNPCR 0.79 [facility] PCR 70.99 [facility] spKt/V Gotch 1.58 [facility] eKt/V Gotch 1.39 [facility] eKdrt/V 1.39 [facility] eKt/V (Tattersall) 1.35 [facility] spKt/V (Daugirdas II) 1.54 [facility] 08/01/2025 08/01/2025 [facility] Ordering Provider LAB BLOOD ORDERABLES Final Result [facility] Contact Performing lab Unknown, [place] * SPECIAL CHEMISTRY (06/30/2025) Hemoglobin A1C 5.9 4.8 - 5.9 % [facility] 06/30/2025 07/01/2025 10: 17 AM CDT Narrative [facility] - 07/01/2025 Unless otherwise specified, test(s) performed at: [facility], [address] [place] [address] SPINNERET CLEANER: Spencer Jerome M.D. For any questions, please call customer service at FREQUENCY:MONTHLY Resulting Agency Comment Specimen source: Blood Anirudh Su MD LAB BLOOD BANK TEST O RDERABLES Final Result [facility] See order comments or contact performing lab Unknown, [place] from Last [address] [place] [address] Dual Complete [place]
--- OUTSIDE RECORDS SUMMARY | 2025-09-04 06:42 | XMS_ITS | Clinical Summary ---
Author Organization [facility] Address [address] [place] [address] Phone Care Team Providers Care Herpetologist Name Role Phone Art Rios MD Primary Care Provider [phone] Allergies Active Allergy Reactions Criticality Noted Date [...] on file Legal Sex Female 12:57 PM CONE TENDER Gender Identity Not on file Sexual Orientation Not on file Last Filed Vital Signs Vital Sign Reading Time Taken Comments Blood Pressure 162/95 01/05/2020 9:26 AM CONE TENDER Pulse - - Temperature 35.9 C (96.7 F) 01/05/2020 9:26 AM CONE TENDER Respiratory Rate 18 01/05/2020 9:26 AM CONE TENDER Oxygen Saturation 96% 01/05/2020 9:26 AM CONE TENDER Inhaled Oxygen Concentration - - Weight 143 kg (315 lb 3.2 oz) 01/05/2020 6:47 AM CONE TENDER Height 162.6 cm (5' 4 ) 01/05/2020 6:47 AM CONE TENDER Body Mass Index 54.1 01/05/2020 6:47 AM CONE TENDER Plan of Treatment Health Maintenance Due Date [...] IMPROVEMENT PLUS [facility] MD [place]HMAEL [phone] [facility] DUAL COMPLETE [facility] PPO D-SNP Care Teams Herpetologist Relationship Specialty Start Date End Date Art Rios MD [address] [place] [address] PCP - General Family Practice 04/07/13
--- OUTSIDE RECORDS SUMMARY | 2025-09-04 06:42 | XMS_ITS | Encounter Summary ---
Author Organization [place], [facility] Address [address] [place] [address] Phone Care Team Providers Care New Grad Rn Name Role Phone Unavailable Primary Care Provider Unavailabl e Encounter Details Date Type Department Care Team (Late st Contact Info) Description 08/29/2025 [facility], [facility] [address] [place] [address] Elizabeth Gongora NP [address] [place] [address] End stage renal disease; Dependence [...] Berenice Pierce, 1960, 65y, F Dialysis Location: [place] Attending Air Traffic Controller: Anirudh Su Service Date: 08/29/2025 Service Provider: Elizabeth Gongora NP I met face to face with the patient today. OVERVIEW The patient presented with ESRD on dialysis Primary cause of renal failure: Type 2 diabetes mellitus with other diabetic kidney complication Comments: Missed treatment all week last week. Admitted at [facility] for N/V, vol overload, hyperkalemia.Had three treatments [...]
--- OUTSIDE RECORDS SUMMARY | 2025-09-04 06:42 | XMS_ITS | Clinical Summary ---
Author Organization [facility] Address [address] [facility] Attn: Epic Prelude ADT STEPHEN YATES [address] Care Team Providers Care Charge Coordinator Name Role Phone Art Rios MD Primary Care Provider [phone] Allergies Active Allergy Reactions Criticality Noted Date [...] on file Legal Sex Female 12:45 PM HOSPITAL INTERN Gender Identity Not on file Sexual Orientation [...] HBA1C Q 6 MONTHS 07/26/2025 01/23/2025 Insurance [facility] [id number] [place]ID [place] Care Teams Charge Coordinator Relationship Specialty Start Date End Date Art Rios MD [address] [place] [address] PCP - General Family Practice 04/07/13
--- OUTSIDE RECORDS SUMMARY | 2025-09-04 06:43 | XMS_ITS | Encounter Summary ---
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 Name Role Phone Unavailable Primary Care Provider Unavailabl e Encounter Details Date Type Department Care Team (Late st Contact Info) Description 09/01/2025 Orders Only [facility], [facility] [address] [place] [address] Anirudh Su MD [address] [place] [address] Social History Tobacco Use Types [...] Date/Time Associated Diagnosis Comments HEMATOLOGY Routine 09/01/2025 CHEMISTRY Routine 09/01/2025 documented in this encounter Results * (ABNORMAL) [facility] (09/01/2025) BUN 45(H) 6 - 19 mg/dL [facility] [...] 09/03/2025 Unless otherwise specified, test(s) performed at: [facility], [address] [place] [address] HARDNESS TESTER: Spencer Jerome M.D. For any questions, please call customer service at FREQUENCY:MONTHLY Resulting Agency Comment Specimen source: Serum us Anirudh Su MD LAB BLOOD ORDERABLES Final Result [facility] See order comments or contact performing lab Unknown, [place] * (ABNORMAL) HEMATOLOGY (09/01/2025) Neutrophils 77.3(H) 40.0 [...] 09/01/2025 09/02/2025 10: 23 AM CDT Narrative [facility] - 09/02/2025 Unless otherwise specified, test(s) performed at: [facility], [address] [place] [address] HARDNESS TESTER: Spencer Jerome M.D. For any questions, please call customer service at FREQUENCY:MONTHLY Resulting Agency Comment Specimen source: Blood us Anirudh Su MD LAB BLOOD ORDERABLES Final Result [facility] See order comments or contact performing lab Unknown, [place] documented in this encounter Visit Diagnoses Not on filedocumented in this encounter
--- NOTE | 2025-09-04 08:00 | MR_ITS ---
WS: [id number] EXAMINATION: MR foot RT wo con* [id number] ORDER DATE: 09/04/2025 8:00 AM COMPARISON: 05/26/2025 HISTORY: right foot diabetic foot infection CONTRAST: 08/26/2025 TECHNIQUE: Sagittal T1, sagittal STIR, coronal PD, coronal T2, axial T1, axial T2, and axial PD imaging with fat saturation technique. FINDINGS: Images degraded by motion Suspected developing small area osteomyelitis in the base of the fifth metatarsal with replacement of normal fatty T1 bone marrow signal. Small amount of fluid and edema at the cuboid articulation with the residual fifth metatarsal base. Diffuse skin thickening edema involving the lower leg and foot soft tissues compatible with cellulitis. Again seen is the large plantar soft tissue ulcer extending over the lateral foot. This involves the plantar surface of the residual fifth metatarsal. No evidence of drainable abscess or fluid collection. Similar-appearing smaller soft tissue ulceration along the plantar surface of the dorsal calcaneus. No abscess in this area. Normal bone marrow signal involving the calcaneus. No evidence of osteomyelitis involving the dorsal calcaneus. Advanced degenerative changes involving the visualized tarsal bones. Partially visualized metatarsal amputations. Plantar and Achilles calcaneal spurring. Advanced degenerative arthritis involving the hindfoot and visualized midfoot. Normal talar dome. Normal medial and lateral malleolus. MR/MR foot RT wo con* [id number] IMPRESSION: 1. Small area of fatty bone marrow replacement involving the base of the resid ual fifth metatarsal at the cuboid articulation suspicious for osteomyelitis si milar to previous. Small amount of fluid and edema in this area.. 2. No drainable fluid collection or abscess in the region of the plantar ulcer ations described above. 3. Diffuse cellulitis
--- NOTE | 2025-09-04 12:09 | PM.CONSULT ---
Providers/Reason For Consult Consulting Physician/Specialty*: kommana/nephrology Reason for Consult*: ESRD Attending Physician: Ruben Pink MD Primary Care Provider: Lexis Ring MD History of Present Illness History of Present Illness Berenice Pierce is a 65 year old female past medical history of ESRD -- HD per tts schedule ,type 2 diabetes mellitus, hypothyroidism, obstructive sleep apnea, hypertension, who presents to [facility] from podiatry clinic for right foot diabetic foot infection. Review of Systems Narrative: negative Medications/Allergies Home Medications ?Medication ?Instructions ?Recorded ?Confirmed ?Last Taken ?Type albuterol sulfate 2.5 mg/3 mL 2.5 mg inhalation Q6H 12/25/24 09/03/25 08/20/25 18:00 History (0.083 %) solution for nebulization calcitriol 0.25 mcg capsule 0.25 mcg PO DAILY 12/25/24 09/03/25 09/03/25 05:00 History hydrocodone 7.5 mg-acetaminophen 1 - 2 tab PO .Q4-6H 12/25/24 09/03/25 09/03/25 05:00 History 325 mg tablet levothyroxine 112 mcg tablet 112 mcg PO DAILY 12/25/24 09/04/25 08/24/25 History metoprolol tartrate 25 mg tablet 25 mg PO BID 12/25/24 09/04/25 09/03/25 History ropinirole 0.25 mg tablet 0.25 mg PO TID 12/25/24 09/04/25 09/03/25 History vitamin B complex and vitamin C 1 cap PO DAILY 12/25/24 09/04/25 Unknown History no.20-folic acid 1 mg capsule (Churchill Caps) budesonide 0.5 mg/2 mL suspension 0.5 mg (2 mL) inhalation 01/02/25 09/03/25 08/09/25 16:00 Rx for nebulization BID.RESPIRATORY #100 mL hydralazine 100 mg tablet 100 mg PO TID 08/25/25 09/03/25 09/03/25 05:00 History tizanidine 4 mg tablet 4 mg PO Q8H 08/25/25 09/04/25 08/24/25 History torsemide 100 mg tablet 100 mg PO DAILY 08/25/25 09/04/25 09/03/25 History amiodarone 200 mg tablet (Pacerone) 200 mg PO DAILY #30 tabs 08/27/25 09/03/25 09/03/25 05:00 Rx apixaban 5 mg tablet (Eliquis) 5 mg PO BID@0900,2100 #60 tabs 08/27/25 09/04/25 09/03/25 Rx insulin glargine U-300 conc 300 10 unit (0.0333 mL) SUBCUT BEDTIME 08/27/25 09/03/25 08/27/25 05:00 Rx unit/mL (3 mL) subcutaneous pen #1 mL (Toujeo Max U-300 SoloStar) sevelamer carbonate 800 mg tablet 800 mg PO TID #90 tabs 08/27/25 09/04/25 Unknown Rx albuterol sulfate 90 mcg/actuation 2 puff inhalation Q6H PRN 09/04/25 09/04/25 Unknown History aerosol inhaler Shortness Of Breath Or Wheezing Allergies Allergy/AdvReac Type Severity Reaction Status Date / Time bumetanide Allergy Unknown Unknown Verified 09/03/25 10:12 sulfamethoxazole (From Allergy Unknown Unknown Verified 09/03/25 10:12 Bactrim) trimethoprim (From Bactrim) Allergy Unknown Unknown Verified 09/03/25 10:12 ceftriaxone Allergy ALGY-Difficulty Verified 09/03/25 10:12 Breathing levofloxacin (From Levaquin) Allergy ADR-Itching Verified 09/03/25 10:12 NSAIDS (Non-Steroidal Allergy Unknown Verified 09/03/25 10:12 Anti-Inflamma Current Medications Generic Name Dose Route Start Last Admin Trade Name Freq PRN Reason Stop Dose Admin Hydrocodone Bitart/Acetaminophen 1 tab 09/03/25 21:41 09/04/25 03:44 Hydrocodone-Acetaminophen 7.5-325 Mg Tablet PO 1 tab Q4H PRN Administration MODERATE PAIN Albuterol Sulfate 2.5 mg 09/03/25 17:28 09/04/25 07:54 Albuterol 2.5 Mg/0.5 Ml Neb INHALATION 2.5 mg Q4H.RESPIRATORY PRN Administration SHORTNESS OF BREATH Amiodarone HCl 200 mg 09/04/25 05:00 09/04/25 04:10 Amiodarone 200 Mg Tablet PO 200 mg DAILY NELIA Administration Apixaban 5 mg 09/03/25 21:00 09/04/25 08:09 Apixaban 5 Mg Tablet PO 5 mg BID@0900,2100 NELIA Administration Calcitriol 0.25 mcg 09/04/25 05:00 09/04/25 04:09 Calcitriol 0.25 Mcg Capsule PO 0.25 mcg DAILY NELIA Administration Hydralazine HCl 100 mg 09/03/25 21:00 09/04/25 04:09 Hydralazine 50 Mg Tablet PO 100 mg TID NELIA Administration Insulin Human Lispro 0 unit 09/03/25 18:00 09/04/25 08:03 Insulin Lispro 100 Unit/1 Ml SUBCUT 4 unit WM&BEDTIME NELIA Administration Protocol Levothyroxine Sodium 112 mcg 09/04/25 05:00 09/04/25 04:10 Levothyroxine 112 Mcg Tablet PO 112 mcg DAILY NELIA Administration Meropenem 1,000 mg 09/03/25 21:00 09/03/25 21:08 Meropenem 1,000 Mg Sdv IVP 1,000 mg Q24H NELIA Administration Protocol Metoprolol Tartrate 25 mg 09/03/25 17:00 09/04/25 05:32 Metoprolol Tartrate 25 Mg Tablet PO 25 mg BID NELIA Administration Pantoprazole Sodium 40 mg 09/03/25 15:30 09/03/25 18:43 Pantoprazole 40 Mg Sdv IVP 40 mg Q24H NELIA Administration Ropinirole HCl 0.25 mg 09/03/25 21:00 09/04/25 05:32 Ropinirole 0.25 Mg Tablet PO 0.25 mg TID NELIA Administration Sevelamer Carbonate 800 mg 09/03/25 21:00 09/04/25 05:32 Sevelamer 800 Mg Tablet PO 800 mg TID NELIA Administration PFSH Acute PFSH: Medical History (Updated 09/03/25 @ 17:43 by Ruben Pink MD) Missed dialysis Chronic osteomyelitis Infection of hemodialysis catheter ESRD on dialysis Chronic ulcer of right foot Poor intravenous access Elevated troponin Respiratory syncytial virus Uremia 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 Pain management contract signed Lumbar stenosis with neurogenic claudication Seizure PRES (posterior reversible encephalopathy syndrome) RLS (restless legs syndrome) TARA (obstructive sleep apnea) Chronic antibiotic suppression Staphylococcus epidermidis bacteremia Diastolic heart failure H/O staphylococcal septicemia Hyperglycemia Cellulitis Thyroid disease Chronic back pain HTN (hypertension) Obesity Surgical History 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 H/O: hysterectomy Arteriovenous fistula History of tonsillectomy History of cholecystectomy History of back surgery History of appendectomy History of adenoidectomy Family History Other Cancer Social History Smoking and tobacco/nicotine status: never used tobacco/nicotine Alcohol intake: never Substance/Drug Use: never Lives independently: Yes Household members: spouse Housing: House Marital status: Vitals/I&O/Wt Last Vital Signs Temp 97.6 F 09/04/25 11:41 Pulse 59 L 09/04/25 11:41 Resp 18 09/04/25 11:41 BP 180/72 09/04/25 11:41 Pulse Ox 92 09/04/25 11:41 O2 Del Method Nasal Cannula 09/04/25 11:41 O2 Flow Rate 3 09/04/25 07:56 09/03/25 09/04/25 09/04/25 22:59 06:59 14:59 Intake Total 120 / 120 250 / 370 120 / 120 Balance 120 / 120 250 / 370 120 / 120 Weight last 48 hrs Weight 118.841 kg Weight 118.388 kg Physical Exam Narrative: awake , alert , no distress No JVD HEERLA S1S2 RRR per report Lungs clear Abd soft , non tender No edema no rash pSYCH - no anxiety Neuro - deferred Data 09/04/25 05:02 09/04/25 05:02 Micro: Microbiology 09/03/25 17:39 Blood Culture - Preliminary Blood SPECIMEN COLLECTED 09/03/25 17:32 Blood Culture - Preliminary Blood SPECIMEN COLLECTED A&P Assessment and plan 1. End stage renal disease on dialysis: 1. ESRD : on TTS schedule , HD today 2. HTN : BP elevated , Resumed home meds 3. Anemia : Hb 8.9 , Will order HIRO 4. Right foot infection Pt evaluated using audiovisual cart. Time spent 40 min PDMP PDMP Reviewed: Not Reviewed Consult Attestations Medical Necessity Statement: per medicine Coding Level of Care Code Acute Code for Chg Fwd Diagnoses End stage renal disease on dialysis N18.6; Z99.2
--- NOTE | 2025-09-04 16:02 | P.PN_ITS ---
Subjective 2 Subjective: Was alert oriented x 3, follow commands, no fevers, no chills, no cough, no shortness of breath, no chest pain Vitals/I&O/Wt Last Vital Signs Temp 98.1 F 09/04/25 15:33 Pulse 56 L 09/04/25 15:33 Resp 18 09/04/25 15:33 BP 170/61 09/04/25 15:33 Pulse Ox 92 09/04/25 15:33 O2 Del Method Nasal Cannula 09/04/25 15:33 O2 Flow Rate 3 09/04/25 08:00 09/04/25 09/04/25 09/04/25 06:59 14:59 22:59 Intake Total 250 / 370 360 / 360 Balance 250 / 370 360 / 360 Weight last 48 hrs Weight 118.841 kg Weight 118.388 kg Physical Exam 2 Const: COMMON NORMALS: no acute distress and patient oriented x3 Resp: COMMON NORMALS: normal respiratory effort, No retractions, No use of accessory muscles and clear to auscultation bilaterally AUSCULTATION: clear to auscultation bilaterally Cardio: COMMON NORMALS: regular rate, regular rhythm, S1 normal heart sound present and S2 normal heart sound present RATE: regular rate RHYTHM: r egular rhythm HEART SOUNDS: S1 normal heart sound present and S2 normal heart sound present GI: COMMON NORMALS: Normal to inspection, nondistended, normoactive bowel sounds present and non-tender Extremity: COMMON NORMALS: no pedal edema Neuro: COMMON NORMALS: patient oriented x3 Psych: COMMON NORMALS: mental status grossly normal Data 09/04/25 05:02 09/04/25 05:02 Micro: Microbiology 09/03/25 17:39 Blood Culture - Preliminary Blood SPECIMEN COLLECTED 09/03/25 17:32 Blood Culture - Preliminary Blood SPECIMEN COLLECTED A&P Assessment and plan 1. Diabetic infection of right foot: 2. Type 2 diabetes mellitus: 3. ESRD on dialysis: 4. RLS (restless legs syndrome): 5. TARA (obstructive sleep apnea): 6. Missed dialysis: Plan: Right diabetic foot infection Plan - MR/MR foot RT wo con* [id number] IMPRESSION: 1. Small area of fatty bone marrow replacement involving the base of the residual fifth metatarsal at the cuboid articulation suspicious for osteomyelitis similar to previous. Small amount of fluid and edema in this area.. 2. No drainable fluid collection or abscess in the region of the plantar ulcerations described above. 3. Diffuse cellulitis -Follow wound cultures - Start of IV vancomycin - IV meropenem End-stage renal disease on dialysis, patient did not receive dialysis this morning, nephrology consulted - Plan for dialysis today Type 2 diabetes mellitus, low-dose sliding scale Full code Eliquis for DVT prophylaxis PDMP PDMP Reviewed: Not Reviewed Attestations 2 Medical Necessity Statement*: Patient requires hospitalization for right diabetic foot infection Diagnoses Diabetic infection of right foot E11.628; L08.9 Type 2 diabetes mellitus E11.9 ESRD on dialysis N18.6; Z99.2 RLS (restless legs syndrome) G25.81 TARA (obstructive sleep apnea) G47.33 Missed dialysis
[2025-09-04] MEDS: pantoprazole 40 mg SDV IVP (18:13)
--- NOTE | 2025-09-04 22:19 | P.PN_ITS ---
Subjective 2 Subjective: Patient seen earlier today. MRI reviewed Vitals/I&O/Wt Last Vital Signs Temp 98.4 F 09/04/25 20:23 Pulse 64 09/04/25 20:23 Resp 18 09/04/25 20:23 BP 192/69 09/04/25 20:23 Pulse Ox 92 09/04/25 15:33 O2 Del Method Nasal Cannula 09/04/25 15:33 O2 Flow Rate 3 09/04/25 08:00 09/04/25 09/04/25 09/04/25 06:59 14:59 22:59 Intake Total 250 / 370 360 / 360 120 / 480 Balance 250 / 370 360 / 360 120 / 480 Weight last 48 hrs Weight 262 lb Weight 261 lb Physical Exam 2 Narrative: EXAM NARRATIVE: GENERAL: Patient is alert and oriented ?3 and in no acute distress. The following is a focused right lower extremity exam. Utilizes an electric scooter or has a cam boot for offloading. VASCULAR: Dorsalis pedis decreased, posterior tibial arteries palpable. Capillary refill time less than 3 seconds to the distal hallux bilaterally. Calf is supple and nontender proximally and distally. Decreased pedal hair growth. NEUROLOGICAL: Protective sensation intact 0/10 sites, tested with Grethel Phan monofilament to bilateral feet. DERMATOLOGICAL: Grade 2 wound down to subcutaneous layer right foot subcuboid and 4th and 5th metatarsal base as well as right posterior heel with serous drainage, malodor and macerated margin does not probe to bone. 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 Data 09/04/25 05:02 09/04/25 05:02 Micro: Microbiology 09/03/25 17:39 Blood Culture - Preliminary Blood NEGATIVE TO DATE 09/03/25 17:32 Blood Culture - Preliminary Blood NEGATIVE TO DATE A&P Assessment and plan 1. Diabetic ulcer of right foot associated with diabetes mellitus due to underlying condition, with fat layer exposed, unspecified part of foot: 2. Type 2 diabetes mellitus: 3. Diabetic infection of right foot: Plan: - Right foot full-thickness ulcerations -Labs and vitals reviewed -WBC 6.2 -ESR 43 - VSS -Cultures preliminary showing GNR's and GPC's -Abx Vanco/meropenem -Diet: NPO -MRI concerning for osteomyelitis. Plan for OR debridement tomorrow 09/05/25 with bone biopsy. senior living antibiotic therapy will be considered based on intraoperative findings. -Pain Mgmt: Per primary team -Weight bearing: Nonweightbearing to right foot -Dressings: Hydrofera Blue, dry sterile dressing daily -Continue current Abx therapy until ID and Sensitivity results -Trend labs -Discharge plan: To be determined -Podiatry will continue to round on patient daily and provide recommendations PDMP PDMP Reviewed: Not Reviewed Attestations 2 Medical Necessity Statement*: OR tomorrow 09/05/25 Coding Level of Care Code Acute Code for Chg Fwd Diagnoses Diabetic ulcer of right foot associated with diabetes mellitus due to underlying condition, with fat layer exposed, unspecified part of foot E08.621; L97.512 Diabetic foot ulcer location: unspecified part of foot Laterality: right Non-pressure ulcer stage: with fat layer exposed Type 2 diabetes mellitus E11.9 Diabetic infection of right foot E11.628; L08.9
[2025-09-04] MEDS: vancomycin 500 MG in sodium chloride 0.9% (plus) 100 ML 200 MG IV (22:50)
[2025-09-04] MEDS: meropenem 1,000 mg SDV 1000 MG IVP (22:51)
[2025-09-05] VITALS (22 sets, daily range): BP systolic 109–193; BP diastolic 43–74; PULSE 52–60; RESP 14–20; TEMP 36–37; O2SAT 90–98
[2025-09-05] MEDS: diphenhydrAMINE 50 mg/mL SDV 1mL 25 MG IVP (01:36)
--- NOTE | 2025-09-05 02:42 | P.EN_ITS ---
Event Note Event Note: Patient was having mild itching without redness or skin hives. She was on meropenem. No shortness of breath wheezing or any abdominal pain, lip swelling or stridor was appreciated. Patient was clinically stable. 25 mg of diphenhydramine IV stat given Continue to monitor and consider meropenem to restart in the morning and to monitor closely, since patient did not have any anaphylaxis or skin hives and the itching is questionable?? Event Notes Attestations Time Spent in Patient Care: less than 15 minutes (>than 50% of time spent in counselling and/or direct pt care on unit) .
[2025-09-05 05:11] LABS: Hematocrit 28.7 % (36-47); Hemoglobin 8.50 g/dL (11.27-16.99); Mean Corpuscular HGB Conc 29.6 g/dL (30-55); Mean Corpuscular Hemoglobin 26.3 pg (27-33); Mean Corpuscular Volume 88.9 fl (85-98); Nucleated Red Blood Cells % 0 %; Platelet Count 103 10^3/cmm (157-399); Red Blood Count 3.23 10^6/uL (3.85-5.65); White Blood Count 4.74 10^3/uL (3.29-11.43)
--- NOTE | 2025-09-05 05:28 | P.EN_ITS ---
Event Note Event Note: patient s/p HD yesterday, running high BP and is asymptomatic reconciled home medications, resumed torsemide started amlodipine 10mg hold metoprolol and amiodarone since pt HR is low monitor for any symptoms and adjustment of the BP meds according to the HR Event Notes Attestations Time Spent in Patient Care: less than 15 minutes (>than 50% of time spent in counselling and/or direct pt care on unit) .
[2025-09-05 05:36] LABS: NT Pro B Type Natriuretic Pept 11884 pg/mL (0-125); Procalcitonin 0.32 ng/mL (0-0.5)
[2025-09-05 05:40] LABS: Alanine Aminotransferase 13 U/L (0-33); Albumin Level 3.5 g/dL (3.5-5.2); Alkaline Phosphatase 156 U/L (35-105); Anion Gap 16.1 (5-19); Aspartate Amino Transferase 13 U/L (0-32); Blood Urea Nitrogen 30 mg/dL (8-23); Calcium 7.8 mg/dL (8.5-10.5); Carbon Dioxide 28 mmol/L (22-29); Chloride 101 mmol/L (98-107); Creatinine Clr Calc Pharmacy 13.3477; Globulin 3.0 g/dL (1.3-4.6); Glucose 114 mg/dL (65-115); Magnesium 2.1 mg/dL (1.7-2.3); Osmolality Calculated 299 mOsm/kg (285-295); Potassium 4.1 mmol/L (3.5-5.1); Sodium 141 mmol/L (136-145); Total Protein 6.5 g/dL (6.6-8.7)
[2025-09-05] MEDS: ondansetron 2 mg/ML SDV 2 mL 4 MG IVP (06:01)
--- NOTE | 2025-09-05 10:01 | ANES.PREANE2 ---
Pre-Anesthetic Assessment Height/Weight: Height 5 ft 4 in Weight 263 lb Temp Pulse Resp BP Pulse Ox O2 Del Method O2 Flow Rate 97.6 F 54 L 18 173/49 98 Nasal Cannula 3 09/05/25 09:38 09/05/25 09:38 09/05/25 09:38 09/05/25 09:38 09/05/25 09:38 09/05/25 09:38 09/05/25 09:38 Preop Diagnosis: osteomyelitis Operation Date: 09/05/25 10:15 Proposed Procedures p Incision of Bone Cortex, right foot(Right) - Félix Demarco DPM Was Beta Corinne taken within 24 hours: N/A Was Clonidine taken within 24 hours: N/A Last intake: Intake Last Liquid Date 09/04/25 Last Solid Date 09/04/25 Social No alcohol and No tobacco Exam alert, oriented x 3, clear to auscultation bilaterally and regular rate & rhythm Airway Submandibular: within normal limits Cervical ROM: within normal limits Mallampati: Class III Dentition: full Anesthetic Plan ASA status: 4 Anesthesia: MAC Other: Patient reports no issues with anesthesia in the past NPO since yesterday Patient has a history of A-fib with RVR. On chronic Eliquis Patient uses 2 L O2 at baseline at home, on 4 L O2 currently with SpO2 of 99% Type 2 diabetes on insulin. BS this morning 136 Labs from today reviewed hemoglobin 8.5, CR 5.2. Received dialysis yesterday Echo performed 12/26/2024 demonstrating normal EF. Unable to be calculated EKG showing sinus rhythm with first-degree AV block Plan for MAC anesthetic with local via surgeon Medications/Allergies Home Medications ?Medication ?Instructions ?Recorded ?Confirmed ?Last Taken ?Type albuterol sulfate 2.5 mg/3 mL 2.5 mg inhalation Q6H 12/25/24 09/03/25 08/20/25 18:00 History (0.083 %) solution for nebulization calcitriol 0.25 mcg capsule 0.25 mcg PO DAILY 12/25/24 09/03/25 09/03/25 05:00 History hydrocodone 7.5 mg-acetaminophen 1 - 2 tab PO .Q4-6H 12/25/24 09/03/25 09/03/25 05:00 History 325 mg tablet levothyroxine 112 mcg tablet 112 mcg PO DAILY 12/25/24 09/04/25 08/24/25 History metoprolol tartrate 25 mg tablet 25 mg PO BID 12/25/24 09/04/25 09/03/25 History ropinirole 0.25 mg tablet 0.25 mg PO TID 12/25/24 09/04/25 09/03/25 History vitamin B complex and vitamin C 1 cap PO DAILY 12/25/24 09/04/25 Unknown History no.20-folic acid 1 mg capsule (Antoni Caps) budesonide 0.5 mg/2 mL suspension 0.5 mg (2 mL) inhalation 01/02/25 09/03/25 08/09/25 16:00 Rx for nebulization BID.RESPIRATORY #100 mL hydralazine 100 mg tablet 100 mg PO TID 08/25/25 09/03/25 09/03/25 05:00 History tizanidine 4 mg tablet 4 mg PO Q8H 08/25/25 09/04/25 08/24/25 History torsemide 100 mg tablet 100 mg PO DAILY 08/25/25 09/04/25 09/03/25 History amiodarone 200 mg tablet (Pacerone) 200 mg PO DAILY #30 tabs 08/27/25 09/03/25 09/03/25 05:00 Rx apixaban 5 mg tablet (Eliquis) 5 mg PO BID@0900,2100 #60 tabs 08/27/25 09/04/25 09/03/25 Rx insulin glargine U-300 conc 300 10 unit (0.0333 mL) SUBCUT BEDTIME 08/27/25 09/03/25 08/27/25 05:00 Rx unit/mL (3 mL) subcutaneous pen #1 mL (Toujeo Max U-300 SoloStar) sevelamer carbonate 800 mg tablet 800 mg PO TID #90 tabs 08/27/25 09/04/25 Unknown Rx albuterol sulfate 90 mcg/actuation 2 puff inhalation Q6H PRN 09/04/25 09/04/25 Unknown History aerosol inhaler Shortness Of Breath Or Wheezing Allergies Allergy/AdvReac Type Severity Reaction Status Date / Time bumetanide Allergy Unknown Unknown Verified 09/03/25 10:12 sulfamethoxazole (From Allergy Unknown Unknown Verified 09/03/25 10:12 Bactrim) trimethoprim (From Bactrim) Allergy Unknown Unknown Verified 09/03/25 10:12 ceftriaxone Allergy ALGY-Difficulty Verified 09/03/25 10:12 Breathing levofloxacin (From Levaquin) Allergy ADR-Itching Verified 09/03/25 10:12 NSAIDS (Non-Steroidal Allergy Unknown Verified 09/03/25 10:12 Anti-Inflamma Current Medications Generic Name Dose Route Start Last Admin Trade Name Freq PRN Reason Stop Dose Admin Hydrocodone Bitart/Acetaminophen 1 tab 09/03/25 21:41 09/04/25 22:21 Hydrocodone-Acetaminophen 7.5-325 Mg Tablet PO 1 tab On Hold: 09/05/25 09:31 Q4H PRN Administration Comment: Order held by Process MODERATE PAIN Transfer Albuterol Sulfate 2.5 mg 09/03/25 17:28 09/04/25 07:54 Albuterol 2.5 Mg/0.5 Ml Neb INHALATION 2.5 mg On Hold: 09/05/25 09:31 Q4H.RESPIRATORY PRN Administration Comment: Order held by Process SHORTNESS OF BREATH Transfer Amiodarone HCl 200 mg 09/04/25 05:00 09/05/25 05:46 Amiodarone 200 Mg Tablet PO Not Given On Hold: 09/05/25 09:31 DAILY NELIA Comment: Order held by Process Transfer Amlodipine Besylate 10 mg 09/05/25 05:30 09/05/25 05:44 Amlodipine 10 Mg Tablet PO 10 mg On Hold: 09/05/25 09:31 DAILY NELIA Administration Comment: Order held by Process Transfer Apixaban 5 mg 09/03/25 21:00 09/05/25 08:03 Apixaban 5 Mg Tablet PO Not Given On Hold: 09/05/25 09:31 BID@0900,2100 NELIA Comment: Order held by Process Transfer Calcitriol 0.25 mcg 09/04/25 05:00 09/05/25 05:46 Calcitriol 0.25 Mcg Capsule PO 0.25 mcg On Hold: 09/05/25 09:31 DAILY NELIA Administration Comment: Order held by Process Transfer Hydralazine HCl 100 mg 09/03/25 21:00 09/05/25 05:45 Hydralazine 50 Mg Tablet PO 100 mg On Hold: 09/05/25 09:31 TID NELIA Administration Comment: Order held by Process Transfer Insulin Human Lispro 0 unit 09/03/25 18:00 09/05/25 08:04 Insulin Lispro 100 Unit/1 Ml SUBCUT Not Given On Hold: 09/05/25 09:31 WM&BEDTIME NELIA Comment: Order held by Process Protocol Transfer Levothyroxine Sodium 112 mcg 09/04/25 05:00 09/05/25 05:45 Levothyroxine 112 Mcg Tablet PO 112 mcg On Hold: 09/05/25 09:31 DAILY NELIA Administration Comment: Order held by Process Transfer Meropenem 1,000 mg 09/03/25 21:00 09/04/25 22:51 Meropenem 1,000 Mg Sdv IVP 1,000 mg On Hold: 09/05/25 09:31 Q24H NELIA Administration Comment: Order held by Process Protocol Transfer Metoprolol Tartrate 25 mg 09/03/25 17:00 09/05/25 05:46 Metoprolol Tartrate 25 Mg Tablet PO Not Given On Hold: 09/05/25 09:31 BID NELIA Comment: Order held by Process Transfer Ondansetron HCl 4 mg 09/03/25 15:26 09/05/25 06:01 Ondansetron 2 Mg/Ml Sdv 2 Ml IVP 4 mg On Hold: 09/05/25 09:31 Q8H PRN Administration Comment: Order held by Process vomiting, or N/V if npo Transfer Pantoprazole Sodium 40 mg 09/03/25 15:30 09/04/25 18:13 Pantoprazole 40 Mg Sdv IVP 40 mg On Hold: 09/05/25 09:31 Q24H NELIA Administration Comment: Order held by Process Transfer Ropinirole HCl 0.25 mg 09/03/25 21:00 09/05/25 05:45 Ropinirole 0.25 Mg Tablet PO 0.25 mg On Hold: 09/05/25 09:31 TID NELIA Administration Comment: Order held by Process Transfer Sevelamer Carbonate 800 mg 09/03/25 21:00 09/05/25 05:45 Sevelamer 800 Mg Tablet PO 800 mg On Hold: 09/05/25 09:31 TID NELIA Administration Comment: Order held by Process Transfer Tizanidine HCl 4 mg 09/05/25 05:30 09/05/25 05:44 Tizanidine 4 Mg Tablet PO 4 mg On Hold: 09/05/25 09:31 Q8H NELIA Administration Comment: Order held by Process Transfer [facility] Anesthesia Medical History (Updated 09/03/25 @ 17:43 by Ruben Pink MD) Missed dialysis Chronic osteomyelitis Infection of hemodialysis catheter ESRD on dialysis Chronic ulcer of right foot Poor intravenous access Elevated troponin Respiratory syncytial virus Uremia 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 Pain management contract signed Lumbar stenosis with neurogenic claudication Seizure PRES (posterior reversible encephalopathy syndrome) RLS (restless legs syndrome) TARA (obstructive sleep apnea) Chronic antibiotic suppression Staphylococcus epidermidis bacteremia Diastolic heart failure H/O staphylococcal septicemia Hyperglycemia Cellulitis Thyroid disease Chronic back pain HTN (hypertension) Obesity Surgical History 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 H/O: hysterectomy Arteriovenous fistula History of tonsillectomy History of cholecystectomy History of back surgery History of appendectomy History of adenoidectomy Family History Other Cancer Social History Smoking and tobacco/nicotine status: never used tobacco/nicotine Alcohol intake: never Substance/Drug Use: never Lives independently: Yes Household members: spouse Housing: House Marital status: Data Anesthesia 09/05/25 04:45 09/05/25 04:45 Short CBC 09/03/25 09/04/25 09/05/25 Range/Units 17:39 05:02 04:45 WBC 6.22 5.69 4.74 (3.29-11.43) 10^3/uL Hgb 9.30 L 8.90 L 8.50 L (11.27-16.99) g/dL Hct 30.4 L 29.7 L 28.7 L (36-47) % MCV 84.7 L 86.6 88.9 (85-98) fl Plt Count 112 L 101 L 103 L (157-399) 10^3/cmm Neut % (Auto) 75.1 70.6 69.2 % Neut # (Auto) 4.67 4.02 3.28 (1.8-7.7) 10^3/uL BMP 09/03/25 09/04/25 09/05/25 17:39 05:02 04:45 Sodium 138 140 141 Potassium 4.4 4.5 4.1 Chloride 97 L 98 101 Carbon Dioxide 26 26 28 BUN 40 H 41 H 30 H Creatinine 6.7 H* 6.3 H* 5.2 H Glucose 159 H 139 H 114 Calcium 7.8 L 7.5 L 7.8 L Cardiac Enzymes 09/03/25 09/04/25 09/05/25 Range/Units 17:39 05:02 04:45 NT-Pro-B Natriuret Pep 26806 H 81502 H 30295 H (0-125) pg/mL Liver Function 09/03/25 09/04/25 09/05/25 Range/Units 17:39 05:02 04:45 Total Bilirubin 0.3 0.4 0.3 (0.15-1.2) mg/dL AST 22 16 13 (0-32) U/L ALT 18 16 13 (0-33) U/L Alkaline Phosphatase 186 H 162 H 156 H (35-105) U/L Albumin 3.8 3.6 3.5 (3.5-5.2) g/dL Urine 09/04/25 Range/Units 04:50 Urine Color Yellow (Yellow) Urine Appearance Clear (CLEAR) Urine pH 7.5 (5-7) Ur Specific [place] 1.018 (1.005-1.030) Urine Protein 3+ A (Negative) Urine Glucose (UA) 1+ H (Normal) Urine Ketones Negative (Negative) Urine Nitrate Negative (Negative) Urine Bilirubin Negative (Negative) Ur Leukocyte Esterase Trace A (Negative) Urine RBC 0-2 (0-2) /hpf Urine WBC 11-20 H (0-5) /hpf Coags 09/03/25 09/04/25 09/05/25 17:39 05:02 04:45 ESR 43 H PT 14.30 INR 1.04 APTT 30.9 C-Reactive Protein 25.9 H 25.1 H 18.6 H Microbiology 09/04/25 04:50 Urine Culture - Preliminary Urine,Clean Catch 09/03/25 17:39 Blood Culture - Preliminary Blood NEGATIVE TO DATE 09/03/25 17:32 Blood Culture - Preliminary Blood NEGATIVE TO DATE Cardiac Studies: Echocardiogram 12/26/24 Echocardiogram Ultrasound 11/27/19
--- NOTE | 2025-09-05 10:26 | P.HPUD_ITS ---
Surgery/Procedure H&P Update DATE OF PROCEDURE: September 05, 2025 DATE H&P PERFORMED: 09/03/25 H&P UPDATE INFORMATION: I have reviewed H&P completed within last 30 days, I have examined patient prior to procedure, No changes to prior documentation, H&P is in [facility] EMR on date indicated and Risks and benefits of the procedure reviewed PREOP DIAGNOSIS: osteomyelitis PLANNED PROCEDURE: Operation Date: 09/05/25 10:15 Proposed Procedures p Incision of Bone Cortex, right foot(Right) - Félix Demarco DPM
[2025-09-05] MEDS: BUPivacaine 0.5% INJ 30 mL INJECTION (10:40)
--- NOTE | 2025-09-05 10:48 | PC.SOCIAL ---
*IMM* Patient received copy of Important Message from Medicare. Copy Initialed, dated and placed in patient chart.
--- NOTE | 2025-09-05 11:01 | PM.OP ---
Operative Report Date of procedure: September 05, 2025 Surgeon: Félix Demarco DPM Procedure: Date of procedure: 09/05/2025 Pre-op diagnosis: Osteomyelitis right foot Post-op diagnosis: Osteomyelitis right foot Post-op findings: Foot full-thickness ulceration down to level of fifth metatarsal tarsometatarsal articulation right foot Procedure done: Right foot excisional debridement down to level of bone CPT 56641 Implants: None Specimens removed: Wound cultures right foot, bone culture right foot, bone biopsy to pathology Surgeon: Dr. Félix Demarco DPM Environmental Construction Engineer: See intraoperative documentation Estimated blood loss: 5 cc Tourniquet time: No tourniquet used Complications: None The patient presents with a severe foot infection involving right foot, characterized by erythema, swelling, and drainage. The infection is complicated by underlying conditions, including diabetes, which have contributed to the progression of the infection despite conservative management. Preoperative imaging and laboratory results indicate osteomyelitis, necessitating surgical intervention. The planned procedure is intended to address the infection, debride necrotic tissue, and, if necessary, assess the viability of surrounding structures to prevent further complications. The patient has been NPO since midnight. The history has been reviewed and the history and physical is current. The signed consent was confirmed and placed in the patient chart. Patient imaging has been reviewed and is consistent with the diagnosis. Under mild sedation, the patient was brought into the operating room and placed on the table in the supine position. Patient is receiving antibiotics around the clock on the floor, Therefore, additional antibiotic prophylaxix was not administered. MAC sedation was then performed by the anesthesiateam. A pneumatic tourniquet was then placed about the right ankle. The operative extremity was then prepped and draped in the usual fashion. After prep, the following procedure was then performed. Attention was directed to the right foot where full-thickness ulceration was noted to the lateral aspect of the foot as well as to the posterior heel. Posterior heel wound was stable and without signs of infection. Lateral foot wound measures 3.0 x 5.1 x 0.2 cm with mixed fibrogranular wound bed. Hyperkeratotic rim with active drainage. Curette was used to remove the hyperkeratotic borders. Excisional debridement was carried down to level of bone cortex which was incised to expose the underlying fifth tarsometatarsal articulation. Jamshidi needle was introduced to the site to obtain bone biopsy to sent to pathology to rule out osteomyelitis as well as bone culture. Wound swabs aerobic and anaerobic were also taken at this point. Postdebridement measurements 3.3 x 5.3 x 0.4 cm. Hemostasis was achieved. Site was irrigated with sterile saline for wounds were dressed with Xeroform, 4 x 4 gauze, ABD pads, Kerlix, Doug. The patient tolerated the procedure and anesthesia well and without complication. The patient was transported from the operating room to the recovery room with vital signs stable and vascular status intact to all digits of the right foot. Thepatient was instructed to remain nonweightbearing to the operative extremity, to keep surgical dressing clean, dry and intact. The patient will be transferred back to the floor once anesthesia criteria is met. I will continue to round on and follow the patient in the inpatientsetting and provide recommendations to stabilize the patient for discharge. Based on intraoperative findings patient will need long-term IV antibiotic therapy. Recommend infectious disease consult for help in managing infection.
--- NOTE | 2025-09-05 11:16 | ANE.PACU2 ---
Inpatient post-anesthesia follow up: Airway intact: Yes Vital signs: Temperature 96.8 F Pulse Rate 56 Respiratory Rate 16 Blood Pressure 161/59 Pulse Oximetry 91 Oxygen Delivery Me thod Nasal Cannula Oxygen Flow Rate 3 Fraction of Inspir ed Oxygen Hydration adequate: Yes Nausea and vomiting: No Pain level: 1 Mental status: Baseline
--- NOTE | 2025-09-05 14:47 | P.PN_ITS ---
Subjective 2 Subjective: no new c/o Medications: Reviewed: Yes Vitals/I&O/Wt Last Vital Signs Temp 97.6 F 09/05/25 12:24 Pulse 56 L 09/05/25 13:35 Resp 18 09/05/25 11:42 BP 109/49 09/05/25 13:35 Pulse Ox 96 09/05/25 13:35 O2 Del Method Nasal Cannula 09/05/25 13:35 O2 Flow Rate 3 09/05/25 13:35 09/04/25 09/05/25 09/05/25 22:59 06:59 14:59 Intake Total 360 / 720 600 / 1320 1000 / 1000 Output Total 2067 / 2067 Balance 360 / 720 -1468 / -748 990 / 990 Weight last 48 hrs Weight 119.295 kg Weight 1.361 kg Weight 119.5 kg Weight 118.841 kg Weight 118.388 kg Physical Exam 2 Narrative: awake , alert , no distress No JVD HEERLA S1S2 RRR per report Lungs clear Abd soft , non tender No edema no rash pSYCH - no anxiety Neuro - deferred Data 09/06/25 03:07 09/06/25 03:07 Micro: Microbiology 09/04/25 04:50 Urine Culture - Preliminary Urine,Clean Catch 09/03/25 17:39 Blood Culture - Preliminary Blood NEGATIVE TO DATE 09/03/25 17:32 Blood Culture - Preliminary Blood NEGATIVE TO DATE A&P Assessment and plan 1. End stage renal disease on dialysis: 1. ESRD : on TTS schedule , HD tomorrow 2. HTN : Resumed home meds 3. Anemia : Hb 8.5 , Will order HIRO 4. Right foot infection Pt evaluated using audiovisual cart. Time spent 40 min PDMP PDMP Reviewed: Not Reviewed Attestations 2 Medical Necessity Statement*: per medicine Coding Level of Care Code Acute Code for Chg Fwd Diagnoses End stage renal disease on dialysis N18.6; Z99.2
[2025-09-05] MEDS: pantoprazole 40 mg SDV IVP (16:50)
[2025-09-05] MEDS: HYDROcodone-acetaminophen 7.5-325 mg Tablet 1 TAB PO (16:50)
--- NOTE | 2025-09-05 16:58 | P.PN_ITS ---
Subjective 2 Subjective: - Patient was seen this morning - Discussed overnight events - Patient reports that about the same ti me that she was receiving meropenem, she developed diffuse pruritus, which improved with Benadryl, denies any lip swelling, no tongue swelling,, no trouble breathing - She did receive meropenem the day befo re without any issues, and she has received meropenem during her prior hospitalization -Discussed drug allergy versus intoleran ce versus other causes of her pruritus - She is also received Zosyn during her prior hospitalization without issue -Does have an allergy to ceftriaxone, Le vaquin - She is concerned about the pruritus - Discussed switching out meropenem, wit h Zyvox for now - She is n.p.o. for surgical interventio n today Vitals/I&O/Wt Last Vital Signs Temp 97.3 F L 09/05/25 16:00 Pulse 54 L 09/05/25 16:00 Resp 16 09/05/25 16:00 BP 136/67 09/05/25 16:00 Pulse Ox 95 09/05/25 16:00 O2 Del Method Nasal Cannula 09/05/25 16:00 O2 Flow Rate 3 09/05/25 16:00 09/05/25 09/05/25 09/05/25 06:59 14:59 22:59 Intake Total 600 / 1320 1000 / 1000 Output Total 8 / 8 Balance -1468 / -748 990 / 990 Weight last 48 hrs Weight 119.295 kg Weight 1.361 kg Weight 119.5 kg Weight 118.841 kg Physical Exam 2 Const: COMMON NORMALS: no acute distress and patient oriented x3 Resp: COMMON NORMALS: normal respiratory effort, No retractions, No use of accessory muscles and clear to auscultation bilaterally AUSCULTATION: clear to auscultation bilaterally Cardio: COMMON NORMALS: regular rate, regular rhythm, S1 normal heart sound present and S2 normal heart sound present RATE: regular rate RHYTHM: r egular rhythm HEART SOUNDS: S1 normal heart sound present and S2 normal heart sound present GI: COMMON NORMALS: Normal to inspection, nondistended, normoactive bowel sounds present and non-tender Extremity: COMMON NORMALS: no pedal edema Neuro: COMMON NORMALS: patient oriented x3 Psych: COMMON NORMALS: mental status grossly normal Skin: NARRATIVE SKIN EXAM: Right lower extremity wrapped, nonpitting edema Data 09/05/25 04:45 09/05/25 04:45 Micro: Microbiology 09/04/25 04:50 Urine Culture - Preliminary Urine,Clean Catch 09/03/25 17:39 Blood Culture - Preliminary Blood NEGATIVE TO DATE 09/03/25 17:32 Blood Culture - Preliminary Blood NEGATIVE TO DATE A&P Assessment and plan 1. Diabetic infection of right foot: 2. Type 2 diabetes mellitus: 3. ESRD on dialysis: 4. RLS (restless legs syndrome): 5. TARA (obstructive sleep apnea): 6. Missed dialysis: Plan: Right diabetic foot infection Plan MRI right foot - MR/MR foot RT wo con* [id number] IMPRESSION: 1. Small area of fatty bone marrow replacement involving the base of the residual fifth metatarsal at the cuboid articulation suspicious for osteomyelitis similar to previous. Small amount of fluid and edema in this area.. 2. No drainable fluid collection or abscess in the region of the plantar ulcerations described above. 3. Diffuse cellulitis -Follow wound cultures - IV vancomycin - Switch out to aztreonam End-stage renal disease on dialysis, patient did not receive dialysis this morning, nephrology consulted - Plan for dialysis today Type 2 diabetes mellitus, low-dose sliding scale Full code Eliquis for DVT prophylaxis Plan for today surgical intervention for right diabetic foot infection, IV antibiotics, consult Dr. Lu PDMP PDMP Reviewed: Not Reviewed Attestations 2 Medical Necessity Statement*: Patient requires hospitalization for right foot diabetic foot infection Diagnoses Diabetic infection of right foot E11.628; L08.9 Type 2 diabetes mellitus E11.9 ESRD on dialysis N18.6; Z99.2 RLS (restless legs syndrome) G25.81 TARA (obstructive sleep apnea) G47.33 Missed dialysis
--- NOTE | 2025-09-05 18:04 | PM.CONSULT ---
Providers/Reason For Consult Consulting Physician/Specialty*: Di Lu MD / infectious disease Reason for Consult*: osteomyelitis Requesting Physician: Ruben Pink MD Attending Physician: Ruben Pink MD Primary Care Provider: Lexis Ring MD History of Present Illness History of Present Illness Berenice Pierce is a 65 year old female with end-stage renal disease currently on hemodialysis with a h/o right chest wall HD catheter infection with MSSA bacteremia in December 2024 treated with 6 weeks of iv cefazolin and removal of HD catheter. New tunneled HD cath was placed subsequently into the left chest. TTEchocardiogram was negative for osteomyelitis. JOSE R was declined. Review of past records shows that patient has a history of Staphylococcus aureus infections including osteomyelitis which has resulted in amputations of toes over her right extremity. She has a chronic ulcer over the right foot on the plantar aspect for which she follows with wound care. she was on chronic Keflex suppression related to hardware infection in the past however she states that she was taken off of it over a year ago. She was recently admitted here between 08/24-08/27 in the setting of having missed HD sessions. Her chronic LE wound was noted to be stable. Post discharge she followed up with podiatry here on 09/03 and was noted to have worsening of right foot wound with increased redness, drainage and malodor. she reported fever and chills at home. She was directed to come in for admission. Small area of fatty bone marrow replacement involving the base of the residual fifth metatarsal at the cuboid articulation suspicious for osteomyelitis. She is previously known to have osteomyelitis of lateral aspect of 5th metatarsal which has been treated in the past. she is s/p Right foot excisional debridement down to level of bone on 09/05/25. She had full-thickness ulceration on lateral aspect down to level of fifth metatarsal tarsometatarsal articulation right foot. Posterior heel wound was stable and without signs of infection. She is currently afebrile and hemodynamically stable. No leukocytsis. CRP 16.2. OR cx is currently awaited from 09/05 recent outpatient cx from 09/03 with pseudomonas aeruginosa. Blood cx from 09/03 thus far negative to date Blood cx from previous admission on 08/24 were reported positive after discharge on 08/29 with GPC in clusters, with final ID of Micrococcus sp on 09/01 called in to patient's PCP by lab. Review of Systems General: Reports: 10 or more systems reviewed and unremarkable except in HPI and below Const: Denies: fever(s), chills or body aches Eyes: Denies: change in vision, blurry vision or photophobia ENMT: Reports: hoarseness; Denies: throat pain, enlarged tonsils, odynophagia or nasal congestion Card: Denies: chest pain, palpitations, irregular heart rhythm, edema, swelling of feet/ankles, lightheadedness, pre-syncope, dyspnea on exertion or orthopnea Resp: Denies: dyspnea, productive cough, non-productive cough, wheezing, stridor, pain on inspiration, change in phlegm color, hemoptysis or chest congestion GI: Denies: abdominal pain, nausea, vomiting, hematemesis, coffee ground emesis, dysphagia, heartburn, diarrhea, constipation, GI cramping, change in stool character, hematochezia or melena : Denies: flank pain, difficulty voiding, dysuria, urinary frequency, urinary urgency, urinary hesitancy or hematuria Musc: Denies: neck pain, back pain, extremity pain, joint swelling, joint warmth or deformity Neuro: Denies: headache(s), numbness in extremities, weakness in extremities, sensory changes, difficulty walking, frequent falls, dizziness, vertigo, behavioral changes, Slurred speech present or seizure-like activity Psych: Denies: anxiety, depression, suicidal ideation or homicidal ideation Endo: Denies: polyuria, polydipsia, tired all the time, cold intolerance or hot flashes Shawn/Lymph: Denies: easy bruising or easy bleeding Medications/Allergies Home Medications ?Medication ?Instructions ?Recorded ?Confirmed ?Last Taken ?Type albuterol sulfate 2.5 mg/3 mL 2.5 mg inhalation Q6H 12/25/24 09/03/25 08/20/25 18:00 History (0.083 %) solution for nebulization calcitriol 0.25 mcg capsule 0.25 mcg PO DAILY 12/25/24 09/03/25 09/03/25 05:00 History hydrocodone 7.5 mg-acetaminophen 1 - 2 tab PO .Q4-6H 12/25/24 09/03/25 09/03/25 05:00 History 325 mg tablet levothyroxine 112 mcg tablet 112 mcg PO DAILY 12/25/24 09/04/25 08/24/25 History metoprolol tartrate 25 mg tablet 25 mg PO BID 12/25/24 09/04/25 09/03/25 History ropinirole 0.25 mg tablet 0.25 mg PO TID 12/25/24 09/04/25 09/03/25 History vitamin B complex and vitamin C 1 cap PO DAILY 12/25/24 09/04/25 Unknown History no.20-folic acid 1 mg capsule (Antoni Caps) budesonide 0.5 mg/2 mL suspension 0.5 mg (2 mL) inhalation 01/02/25 09/03/25 08/09/25 16:00 Rx for nebulization BID.RESPIRATORY #100 mL hydralazine 100 mg tablet 100 mg PO TID 08/25/25 09/03/25 09/03/25 05:00 History tizanidine 4 mg tablet 4 mg PO Q8H 08/25/25 09/04/25 08/24/25 History torsemide 100 mg tablet 100 mg PO DAILY 08/25/25 09/04/25 09/03/25 History amiodarone 200 mg tablet (Pacerone) 200 mg PO DAILY #30 tabs 08/27/25 09/03/25 09/03/25 05:00 Rx apixaban 5 mg tablet (Eliquis) 5 mg PO BID@0900,2100 #60 tabs 08/27/25 09/04/25 09/03/25 Rx insulin glargine U-300 conc 300 10 unit (0.0333 mL) SUBCUT BEDTIME 08/27/25 09/03/25 08/27/25 05:00 Rx unit/mL (3 mL) subcutaneous pen #1 mL (Toujeo Max U-300 SoloStar) sevelamer carbonate 800 mg tablet 800 mg PO TID #90 tabs 08/27/25 09/04/25 Unknown Rx albuterol sulfate 90 mcg/actuation 2 puff inhalation Q6H PRN 09/04/25 09/04/25 Unknown History aerosol inhaler Shortness Of Breath Or Wheezing Allergies Allergy/AdvReac Type Severity Reaction Status Date / Time bumetanide Allergy Unknown Unknown Verified 09/03/25 10:12 sulfamethoxazole (From Allergy Unknown Unknown Verified 09/03/25 10:12 Bactrim) trimethoprim (From Bactrim) Allergy Unknown Unknown Verified 09/03/25 10:12 ceftriaxone Allergy ALGY-Difficulty Verified 09/03/25 10:12 Breathing levofloxacin (From Levaquin) Allergy ADR-Itching Verified 09/03/25 10:12 NSAIDS (Non-Steroidal Allergy Unknown Verified 09/03/25 10:12 Anti-Inflamma Current Medications Generic Name Dose Route Start Last Admin Trade Name Freq PRN Reason Stop Dose Admin Hydrocodone Bitart/Acetaminophen 1 tab 09/03/25 21:41 09/05/25 16:50 Hydrocodone-Acetaminophen 7.5-325 Mg Tablet PO 1 tab Q4H PRN Administration MODERATE PAIN Albuterol Sulfate 2.5 mg 09/03/25 17:28 09/04/25 07:54 Albuterol 2.5 Mg/0.5 Ml Neb INHALATION 2.5 mg Q4H.RESPIRATORY PRN Administration SHORTNESS OF BREATH Amiodarone HCl 200 mg 09/04/25 05:00 09/05/25 05:46 Amiodarone 200 Mg Tablet PO Not Given DAILY [facility] Amlodipine Besylate 10 mg 09/05/25 05:30 09/05/25 05:44 Amlodipine 10 Mg Tablet PO 10 mg DAILY NELIA Administration Apixaban 5 mg 09/03/25 21:00 09/05/25 08:03 Apixaban 5 Mg Tablet PO Not Given BID@0900,2100 [facility] Calcitriol 0.25 mcg 09/04/25 05:00 09/05/25 05:46 Calcitriol 0.25 Mcg Capsule PO 0.25 mcg DAILY NELIA Administration Hydralazine HCl 100 mg 09/03/25 21:00 09/05/25 12:39 Hydralazine 50 Mg Tablet PO 100 mg TID [facility] Administration Insulin Human Lispro 0 unit 09/03/25 18:00 09/05/25 16:50 Insulin Lispro 100 Unit/1 Ml SUBCUT 4 unit WM&BEDTIME NELIA Administration Protocol Levothyroxine Sodium 112 mcg 09/04/25 05:00 09/05/25 05:45 Levothyroxine 112 Mcg Tablet PO 112 mcg DAILY NELIA Administration Metoprolol Tartrate 25 mg 09/03/25 17:00 09/05/25 16:50 Metoprolol Tartrate 25 Mg Tablet PO 25 mg BID NELIA Administration Ondansetron HCl 4 mg 09/03/25 15:26 09/05/25 06:01 Ondansetron 2 Mg/Ml Sdv 2 Ml IVP 4 mg Q8H PRN Administration vomiting, or N/V if npo Pantoprazole Sodium 40 mg 09/03/25 15:30 09/05/25 16:50 Pantoprazole 40 Mg Sdv IVP 40 mg Q24H NELIA Administration Ropinirole HCl 0.25 mg 09/03/25 21:00 09/05/25 12:40 Ropinirole 0.25 Mg Tablet PO 0.25 mg TID NELIA Administration Sevelamer Carbonate 800 mg 09/03/25 21:00 09/05/25 12:40 Sevelamer 800 Mg Tablet PO 800 mg TID NELIA Administration Tizanidine HCl 4 mg 09/05/25 05:30 09/05/25 12:40 Tizanidine 4 Mg Tablet PO 4 mg Q8H NELIA Administration PFSH Acute PFSH: Medical History Missed dialysis Chronic osteomyelitis Infection of hemodialysis catheter ESRD on dialysis Chronic ulcer of right foot Poor intravenous access Elevated troponin Respiratory syncytial virus Uremia Headache longterm (current) use of opiate analgesic Pain management contract signed Lumbar stenosis with neurogenic claudication Seizure PRES (posterior reversible encephalopathy syndrome) RLS (restless legs syndrome) TARA (obstructive sleep apnea) Chronic antibiotic suppression Staphylococcus epidermidis bacteremia Diastolic heart failure H/O staphylococcal septicemia Hyperglycemia Cellulitis Thyroid disease Chronic back pain HTN (hypertension) Obesity Surgical History 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 H/O: hysterectomy Arteriovenous fistula History of tonsillectomy History of cholecystectomy History of back surgery History of appendectomy History of adenoidectomy Family History Other Cancer Social History Smoking and tobacco/nicotine status: never used tobacco/nicotine Alcohol intake: never Substance/Drug Use: never Lives independently: Yes Household members: spouse Housing: House Marital status: Vitals/I&O/Wt Last Vital Signs Temp 97.3 F L 09/05/25 16:00 Pulse 54 L 09/05/25 16:00 Resp 16 09/05/25 16:00 BP 136/67 09/05/25 16:00 Pulse Ox 95 09/05/25 16:00 O2 Del Method Nasal Cannula 09/05/25 16:00 O2 Flow Rate 3 09/05/25 16:00 09/05/25 09/05/25 09/05/25 06:59 14:59 22:59 Intake Total 600 / 1320 1000 / 1000 Output Total 8 / 2068 Balance -1468 / -748 990 / 990 Weight last 48 hrs Weight 119.295 kg Weight 1.361 kg Weight 119.5 kg Weight 118.841 kg Physical Exam Narrative: General: No acute distress, AO x3 HEENT: PERRLA, pupils bilaterally equal and reactive, pallors not present Chest: Normal vesicular breath sounds, no added sounds, equal good air entry bilaterally CVS: S1-S2 regular, no murmurs, no tachycardia, no gallops, no rubs Abdomen: Soft, nontender, no organomegaly, bowel sounds present Neuro: No focal deficits, no facial deformity, AO x3, power 5/5 in all limbs Data 09/06/25 11:30 09/06/25 11:30 Micro: Microbiology 09/04/25 04:50 Urine Culture - Preliminary Urine,Clean Catch 09/03/25 17:39 Blood Culture - Preliminary Blood NEGATIVE TO DATE 09/03/25 17:32 Blood Culture - Preliminary Blood NEGATIVE TO DATE Radiology Impressions Foot MRI 09/04/25 08:00 IMPRESSION: 1. Small area of fatty bone marrow replacement involving the base of the residual fifth metatarsal at the cuboid articulation suspicious for osteomyelitis similar to previous. Small amount of fluid and edema in this area.. 2. No drainable fluid collection or abscess in the region of the plantar ulcerations described above. 3. Diffuse cellulitis Laboratory Results WBC 5.76 10^3/uL (3.29-11.43) 09/06/25 03:07 RBC 3.26 10^6/uL (3.85-5.65) L 09/06/25 03:07 Hgb 8.40 g/dL (11.27-16.99) L 09/06/25 03:07 Hct 29.3 % (36-47) L 09/06/25 03:07 MCV 89.9 fl (85-98) 09/06/25 03:07 MCH 25.8 pg (27-33) L 09/06/25 03:07 MCHC 28.7 g/dL (30-55) L 09/06/25 03:07 RDW 15.9 % (12.1-15.1) H 09/06/25 03:07 Plt Count 72 10^3/cmm (157-399) L D 09/06/25 03:07 MPV 11.9 fL (7.4-10.4) H 09/06/25 03:07 Neut % (Auto) 74.7 % 09/06/25 03:07 Lymph % (Auto) 14.2 % 09/06/25 03:07 [place] % (Auto) 6.8 % 09/06/25 03:07 Eos % (Auto) 3.6 % 09/06/25 03:07 Baso % (Auto) 0.5 % 09/06/25 03:07 Neut # (Auto) 4.30 10^3/uL (1.8-7.7) 09/06/25 03:07 Lymph # (Auto) 0.8 10^3/uL (0.8-4.8) 09/06/25 03:07 [place] # (Auto) 0.4 10^3/uL (0.2-0.9) 09/06/25 03:07 Eos # (Auto) 0.2 10^3/uL (0.0-0.8) 09/06/25 03:07 Baso # (Auto) 0.0 10^3/uL (0.0-0.1) 09/06/25 03:07 Nucleated RBC % (auto) 0 % 09/06/25 03:07 Nucleated RBCs # 0.0 /100WBC 09/06/25 03:07 ESR 43 mm/hr (0-15) H 09/03/25 17:39 PT 14.30 SECONDS (12.1-14.9) 09/03/25 17:39 INR 1.04 (0.8-1.2) 09/03/25 17:39 APTT 30.9 SECONDS (23.9-36.7) 09/03/25 17:39 Sodium 140 mmol/L (136-145) 09/06/25 03:07 Potassium 4.8 mmol/L (3.5-5.1) 09/06/25 03:07 Chloride 100 mmol/L (98-107) 09/06/25 03:07 Carbon Dioxide 28 mmol/L (22-29) 09/06/25 03:07 Anion Gap 16.8 (5-19) 09/06/25 03:07 BUN 36 mg/dL (8-23) H 09/06/25 03:07 Creatinine 6.6 mg/dL (0.5-0.9) H* 09/06/25 03:07 GFR Calculation 6.3 mL/min (90-130) L 09/06/25 03:07 Glucose 215 mg/dL (65-115) H 09/06/25 03:07 POC Glucose 177 mg/dL (70-110) H 09/06/25 07:08 Estimat Average Glucose 120 09/03/25 17:39 Hemoglobin A1c 5.8 % (4.0-6.0) 09/03/25 17:39 Calculated Osmolality 305 mOsm/kg (285-295) H 09/06/25 03:07 Lactic Acid 1.3 mmol/L (0.5-2.2) 09/03/25 17:39 Calcium 7.5 mg/dL (8.5-10.5) L 09/06/25 03:07 Phosphorus 6.1 mg/dL (2.5-4.5) H 09/06/25 03:07 Magnesium 2.3 mg/dL (1.7-2.3) 09/06/25 03:07 Total Bilirubin 0.3 mg/dL (0.15-1.2) 09/06/25 03:07 AST 12 U/L (0-32) 09/06/25 03:07 ALT 12 U/L (0-33) 09/06/25 03:07 Alkaline Phosphatase 162 U/L (35-105) H 09/06/25 03:07 C-Reactive Protein 16.2 mg/L (0.0-4.9) H 09/06/25 03:07 NT-Pro-B Natriuret Pep 52025 pg/mL (0-125) H 09/05/25 04:45 Total Protein 6.2 g/dL (6.6-8.7) L 09/06/25 03:07 Albumin 3.6 g/dL (3.5-5.2) 09/06/25 03:07 Globulin 2.6 g/dL (1.3-4.6) 09/06/25 03:07 Triglycerides 77 mg/dL (0-150) 09/03/25 17:39 Cholesterol 121 mg/dL (0-200) 09/03/25 17:39 LDL Cholesterol, Calc 53 mg/dL (50-129) 09/03/25 17:39 HDL Cholesterol 53 mg/dL (60-100) L 09/03/25 17:39 LDL/HDL Ratio 1.00 RATIO (0.00-3.22) 09/03/25 17:39 Cholesterol/HDL Ratio 2.28 mg/dL (0.0-4.40) 09/03/25 17:39 Procalcitonin 0.32 ng/mL (0-0.5) 09/05/25 04:45 TSH 4.89 uIU/mL (0.27-4.20) H 09/03/25 17:39 Urine Color Yellow (Yellow) 09/04/25 04:50 Urine Appearance Clear (CLEAR) 09/04/25 04:50 Urine pH 7.5 (5-7) 09/04/25 04:50 Ur Specific [place] 1.018 (1.005-1.030) 09/04/25 04:50 Urine Protein 3+ (Negative) A 09/04/25 04:50 Urine Glucose (UA) 1+ (Normal) H 09/04/25 04:50 Urine Ketones Negative (Negative) 09/04/25 04:50 Urine Blood Negative (Negative) 09/04/25 04:50 Urine Nitrate Negative (Negative) 09/04/25 04:50 Urine Bilirubin Negative (Negative) 09/04/25 04:50 Urine Urobilinogen 0.2 mg/dL (Negative) 09/04/25 04:50 Ur Leukocyte Esterase Trace (Negative) A 09/04/25 04:50 Urine RBC 0-2 /hpf (0-2) 09/04/25 04:50 Urine WBC 11-20 /hpf (0-5) H 09/04/25 04:50 Ur Squamous Epith Cells 6-10 /hpf (0-5) 09/04/25 04:50 Amorphous Sediment Not Reportable 09/04/25 04:50 Urine Bacteria Trace /hpf (NONE) 09/04/25 04:50 Hyaline Casts 3.30 /lpf 09/04/25 04:50 Nasal MRSA (PCR) Not detected (Not Detecte) 09/03/25 18:54 Random Vancomycin 13.6 ug/mL (20.0-40.0) L 09/06/25 03:07 A&P Assessment and plan 1. Osteomyelitis of foot: 65F with PMH as above p/w worsenng of left foot wound, full thickness extending to bone MRI with osteomyelitis of the 5th metatarsal and cuboid Outpatient cx with Pseudomonas aeruginosa s/t cefepime pending OR cx Can D/c aztreonam and vancomycin transition to cefepime 1 g iv every 24 hrs, at discharge can be transitioned to cefepime 2 g iv after HD on dialysis Chart notes allergy to ceftriaxone however patient has previosuly tolerated cefazolin in 12/2024 and oral Keflex. Will trial cefepime in the hospital first. Will follow OR cx 2. Bacteremia: recent micrococcus bacteremia , blood cx clear from current admission suspect likely contamination PDMP PDMP Reviewed: Not Reviewed Coding Level of Care Code Acute Code for Chg Fwd High MDM includes number and complexity of problems actively addressed during encounter, amount and/or complexity of data reviewed/ordered and described risk of complication, morbidity or mortality of management as documented Diagnoses Osteomyelitis of foot M86.9 Bacteremia R78.81
[2025-09-05] MEDS: aztreonam 1,000 MG in sodium chloride 0.9% (plus) 50 ML 100 MG IV (21:16)
[2025-09-05] MEDS: morphine 4 mg/mL SDV 1 mL 2 MG IVP (21:19)
[2025-09-06] VITALS (9 sets, daily range): BP systolic 118–197; BP diastolic 40–64; PULSE 48–64; RESP 15–18; TEMP 36.2–36.9; O2SAT 93–96
[2025-09-06] MEDS: HYDROcodone-acetaminophen 7.5-325 mg Tablet 1 TAB PO ×2 (00:53→09:09)
[2025-09-06] MEDS: morphine 4 mg/mL SDV 1 mL 2 MG IVP ×2 (03:14→11:16)
[2025-09-06 04:55] LABS: Hematocrit 29.3 % (36-47); Hemoglobin 8.40 g/dL (11.27-16.99); Mean Corpuscular HGB Conc 28.7 g/dL (30-55); Mean Corpuscular Hemoglobin 25.8 pg (27-33); Mean Corpuscular Volume 89.9 fl (85-98); Nucleated Red Blood Cells % 0 %; Platelet Count 72 10^3/cmm (157-399); Red Blood Count 3.26 10^6/uL (3.85-5.65); White Blood Count 5.76 10^3/uL (3.29-11.43)
[2025-09-06 05:12] LABS: Alanine Aminotransferase 12 U/L (0-33); Albumin Level 3.6 g/dL (3.5-5.2); Alkaline Phosphatase 162 U/L (35-105); Anion Gap 16.8 (5-19); Aspartate Amino Transferase 12 U/L (0-32); Blood Urea Nitrogen 36 mg/dL (8-23); Calcium 7.5 mg/dL (8.5-10.5); Carbon Dioxide 28 mmol/L (22-29); Chloride 100 mmol/L (98-107); Globulin 2.6 g/dL (1.3-4.6); Glucose 215 mg/dL (65-115); Magnesium 2.3 mg/dL (1.7-2.3); Osmolality Calculated 305 mOsm/kg (285-295); Potassium 4.8 mmol/L (3.5-5.1); Sodium 140 mmol/L (136-145); Total Protein 6.2 g/dL (6.6-8.7)
[2025-09-06 05:39] LABS: Creatinine Clr Calc Pharmacy 10.5164
--- NOTE | 2025-09-06 08:03 | P.PN_ITS ---
Subjective 2 Subjective: Patient seen at bedside this morning. Resting comfortably. No overnight events. Vitals/I&O/Wt Last Vital Signs Temp 97.2 F L 09/06/25 07:25 Pulse 53 L 09/06/25 07:34 Resp 16 09/06/25 07:34 BP 118/61 09/06/25 07:25 Pulse Ox 94 09/06/25 07:34 O2 Del Method Nasal Cannula 09/06/25 07:34 O2 Flow Rate 2 09/06/25 07:34 09/05/25 09/06/25 09/06/25 22:59 06:59 14:59 Intake Total 290 / 1290 480 / 1770 Balance 290 / 1280 480 / 1760 Weight last 48 hrs Weight 263 lb Weight 263 lb Weight 3 lb Weight 263 lb 7.238 oz Physical Exam 2 Narrative: EXAM NARRATIVE: GENERAL: Patient is alert and oriented ?3 and in no acute distress. The following is a focused right lower extremity exam. Utilizes an electric scooter or has a cam boot for offloading. VASCULAR: Dorsalis pedis decreased, posterior tibial arteries palpable. Capillary refill time less than 3 seconds to the distal hallux bilaterally. Calf is supple and nontender proximally and distally. Decreased pedal hair growth. NEUROLOGICAL: Protective sensation intact 0/10 sites, tested with [place] Phan monofilament to bilateral feet. DERMATOLOGICAL: Grade 3 wound right foot subfourth and fifth tarsometatarsal articulation. No underlying fluctuance or signs of deep space abscess at dressing change this morning. 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 Data 09/06/25 11:30 09/06/25 11:30 Micro: Microbiology 09/05/25 10:50 Gram Stain - Final Other Source 09/05/25 10:50 Gram Stain - Final Bone 09/04/25 04:50 Urine Culture - Preliminary Urine,Clean Catch A&P Assessment and plan 1. Diabetic ulcer of right foot associated with diabetes mellitus due to underlying condition, with fat layer exposed, unspecified part of foot: 2. Type 2 diabetes mellitus: 3. Diabetic infection of right foot: Plan: - Right foot full-thickness ulcerations -Labs and vitals reviewed -WBC 6.2 -ESR 43 - VSS -Cultures: Clinic cultures obtained on 09/03 show Pseudomonas. Intraoperative cultures showing preliminary gram-negative rods -Abx cefepime -Diet: Okay for diet from podiatry standpoint - No further surgical intervention by podiatry during this admission. Monitor intraoperative cultures. Appreciate ID recommendations. -Pain Mgmt: Per primary team -Weight bearing: Nonweightbearing to right foot -Dressings: Hydrofera Blue, dry sterile dressing daily -Continue current Abx therapy until ID and Sensitivity results -Trend labs -Discharge plan: To be determined -Podiatry will continue to round on patient daily and provide recommendations PDMP PDMP Reviewed: Not Reviewed Attestations 2 Medical Necessity Statement*: Awaiting culture results for final recommendations of antibiotics. Coding Level of Care Code Acute Code for [facility] Fwd Diagnoses Diabetic ulcer of right foot associated with diabetes mellitus due to underlying condition, with fat layer exposed, unspecified part of foot E08.621; L97.512 Diabetic foot ulcer location: unspecified part of foot Laterality: right Non-pressure ulcer stage: with fat layer exposed Type 2 diabetes mellitus E11.9 Diabetic infection of right foot E11.628; L08.9
[2025-09-06] MEDS: aztreonam 1,000 MG in sodium chloride 0.9% (plus) 50 ML 100 MG IV (08:34)
--- NOTE | 2025-09-06 10:41 | CTR_ITS ---
PROCEDURE INFORMATION: Exam: CT Head Without Contrast Exam date and time: 09/06/2025 11:02 AM Age: 65 years old Clinical indication: Pain; Headache not specified TECHNIQUE: Imaging protocol: Computed tomography of the head without contrast. Radiation optimization: All CT scans at this facility use at least one of these dose optimization techniques: automated exposure control; mA and/or kV adjustment per patient size (includes targeted exams where dose is matched to clinical indication); or iterative reconstruction. COMPARISON: MR head wo con* [id number] 08/31/2020 3:00 PM RADIATION DOSE METRICS: Total DLP (mGy-cm): 1121.98 FINDINGS: Brain: There is no mass effect, midline shift, acute hemorrhage, extra-axial fluid collection or acute lobar infarct. Cerebral ventricles: No ventriculomegaly. Paranasal sinuses: Visualized sinuses are unremarkable. No fluid levels. Mastoid air cells: Visualized mastoid air cells are well aerated. Bones: Unremarkable. No acute fracture. Soft tissues: Unremarkable. CT/CT head wo con* [id number] IMPRESSION: No acute intracranial process.
--- NOTE | 2025-09-06 10:41 | ECG_ITS ---
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 Measurements Intervals [place] Rate: 56 P: 23 NC: 179 QRS: 3 QRSD: 96 T: 1 QT: 455 QTc: 443 Interpretive Statements SINUS BRADYCARDIA POSSIBLE ANTERIOR MYOCARDIAL INFARCTION , PROBABLY OLD [30 ms Q WAVE IN V3/V4, OR R < 0.2 mV IN V4] Compared to ECG 08/24/2025 22:52:50 Sinus rhythm no longer present Sinus arrhythmia no longer present First degree AV block no longer present Myocardial infarct finding still present Electronically Signed On 09-06-2025 11:56:09 CDT by Michael Dewey M.D. [email or web address]
--- NOTE | 2025-09-06 11:40 | PC.HD ---
70 minutes into HD treatment pt c/o sudden headache /, head feels blurry , something's not right , wanting to sit on side of bed with legs down but explained that she can't while on treatment. UF off, BP 127/44, P 57, O2 sat 96%. Pt alternately agitated and crying, then lying slack with eyes closed, mentation slow and arms lying slack, hand grasps very weak but equal, not able to do pedal push bilat. Dr Pink called to room and examined pt, doesnt suspect acute event but will order CT head to R/O. Dr Oliva ntfd of above. Pt increasingly agitated and crying, insisting she needs to get up, restless legs and leg pain increasing, and 100 minutes into treatment, HD terminated at [facility] request. [facility] room. Dr Oliva updated.
--- NOTE | 2025-09-06 11:41 | P.PN_ITS ---
Subjective 2 Subjective: pt became confused , Medications: Reviewed: Yes Vitals/I&O/Wt Last Vital Signs Temp 97.2 F L 09/06/25 07:25 Pulse 53 L 09/06/25 07:34 Resp 16 09/06/25 11:16 BP 118/61 09/06/25 07:25 Pulse Ox 94 09/06/25 07:34 O2 Del Method Nasal Cannula 09/06/25 07:34 O2 Flow Rate 2 09/06/25 08:00 09/05/25 09/06/25 09/06/25 22:59 06:59 14:59 Intake Total 290 / 1290 480 / 1770 530 / 530 Balance 290 / 1280 480 / 1760 530 / 530 Weight last 48 hrs Weight 119.295 kg Weight 119.295 kg Weight 1.361 kg Weight 119.5 kg Physical Exam 2 Narrative: awake , alert , no distress No JVD HEERLA S1S2 RRR per report Lungs clear Abd soft , non tender No edema no rash pSYCH - no anxiety Neuro - deferred Data 09/07/25 05:13 09/07/25 05:13 Micro: Microbiology 09/05/25 10:50 Gram Stain - Final Other Source 09/05/25 10:50 Gram Stain - Final Bone 09/04/25 04:50 Urine Culture - Preliminary Urine,Clean Catch A&P Assessment and plan 1. End stage renal disease on dialysis: 1. ESRD : on TTS schedule , HD today 2. HTN : Resumed home meds 3. Anemia : Hb 8.5 , Will order HIRO 4. Right foot infection 5. AMS , CT ordered Pt evaluated using audiovisual cart. Time spent 40 min PDMP PDMP Reviewed: Not Reviewed Attestations 2 Medical Necessity Statement*: per lucie Coding Level of Care Code Acute Code for Chg Fwd Diagnoses End stage renal disease on dialysis N18.6; Z99.2
[2025-09-06 11:58] LABS: Hematocrit 31.9 % (36-47); Hemoglobin 9.20 g/dL (11.27-16.99); Mean Corpuscular HGB Conc 28.8 g/dL (30-55); Mean Corpuscular Hemoglobin 26.2 pg (27-33); Mean Corpuscular Volume 90.9 fl (85-98); Nucleated Red Blood Cells % 0 %; Platelet Count 111 10^3/cmm (157-399); Red Blood Count 3.51 10^6/uL (3.85-5.65); White Blood Count 5.84 10^3/uL (3.29-11.43)
[2025-09-06 12:17] LABS: Troponin(5th) Baseline 94 ng/L (0-10)
[2025-09-06 12:18] LABS: Alanine Aminotransferase 13 U/L (0-33); Albumin Level 3.9 g/dL (3.5-5.2); Alkaline Phosphatase 174 U/L (35-105); Anion Gap 20.7 (5-19); Aspartate Amino Transferase 13 U/L (0-32); Blood Urea Nitrogen 30 mg/dL (8-23); Calcium 7.9 mg/dL (8.5-10.5); Carbon Dioxide 23 mmol/L (22-29); Chloride 100 mmol/L (98-107); Creatinine Clr Calc Pharmacy 12.8556; Globulin 3.0 g/dL (1.3-4.6); Glucose 91 mg/dL (65-115); Osmolality Calculated 294 mOsm/kg (285-295); Potassium 4.7 mmol/L (3.5-5.1); Sodium 139 mmol/L (136-145); Total Protein 6.9 g/dL (6.6-8.7)
--- NOTE | 2025-09-06 12:41 | ECG_ITS ---
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 Measurements Intervals [place] Rate: 55 P: 55 MT: 189 QRS: 3 QRSD: 91 T: 6 QT: 480 QTc: 459 Interpretive Statements SINUS BRADYCARDIA POSSIBLE ANTERIOR MYOCARDIAL INFARCTION , PROBABLY OLD [30 ms Q WAVE IN V3/V4, OR R < 0.2 mV IN V4] Compared to ECG 09/06/2025 11:14:40 No significant changes Electronically Signed On 09-09-2025 19:49:36 CDT by Christian Contreras M.D. [id number]
[2025-09-06 14:57] LABS: Troponin 5 2HR 90.65 ng/L (0-10); Troponin 5 2HR Delta -3.35 ABS# (0-10)
--- NOTE | 2025-09-06 16:29 | ECG_ITS ---
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 Measurements Intervals [place] Rate: 55 P: 28 WI: 189 QRS: -1 QRSD: 89 T: 2 QT: 465 QTc: 448 Interpretive Statements SINUS BRADYCARDIA POSSIBLE ANTERIOR MYOCARDIAL INFARCTION , PROBABLY OLD [30 ms Q WAVE IN V3/V4, OR R < 0.2 mV IN V4] Compared to ECG 09/06/2025 13:50:13 No significant changes Electronically Signed On 09-09-2025 19:49:13 CDT by Christian Contreras M.D. [id number]
[2025-09-06] MEDS: pantoprazole 40 mg SDV IVP (17:22)
--- NOTE | 2025-09-06 17:26 | P.PN_ITS ---
Subjective 2 Subjective: Patient was seen this morning, she is alert oriented x 3, follow commands, denies any fevers, no chills, no cough, denies any significant pain Vitals/I&O/Wt Last Vital Signs Temp 97.6 F 09/06/25 15:59 Pulse 55 L 09/06/25 15:59 Resp 18 09/06/25 15:59 BP 184/63 09/06/25 15:59 Pulse Ox 93 09/06/25 15:59 O2 Del Method Nasal Cannula 09/06/25 15:59 O2 Flow Rate 2 09/06/25 15:59 09/06/25 09/06/25 09/06/25 06:59 14:59 22:59 Intake Total 480 / 1770 1270 / 1270 Output Total 538 / 538 Balance 480 / 1760 732 / 732 Weight last 48 hrs Weight 123.06 kg Weight 119.295 kg Weight 119.295 kg Weight 1.361 kg Weight 119.5 kg Physical Exam 2 Const: COMMON NORMALS: no acute distress and patient oriented x3 Resp: COMMON NORMALS: normal respiratory effort, No retractions, No use of accessory muscles and clear to auscultation bilaterally AUSCULTATION: clear to auscultation bilaterally Cardio: COMMON NORMALS: regular rate, regular rhythm, S1 normal heart sound present and S2 normal heart sound present RATE: regular rate RHYTHM: r egular rhythm HEART SOUNDS: S1 normal heart sound present and S2 normal heart sound present GI: COMMON NORMALS: Normal to inspection, nondistended, normoactive bowel sounds present and non-tender Extremity: COMMON NORMALS: no pedal edema Neuro: COMMON NORMALS: patient oriented x3 Psych: COMMON NORMALS: mental status grossly normal Data 09/06/25 11:30 09/06/25 11:30 Micro: Microbiology 09/05/25 10:50 Gram Stain - Final Other Source Wound Culture - Preliminary Gram Negative Rods 09/05/25 10:50 Gram Stain - Final Bone Tissue Culture - Preliminary 09/04/25 04:50 Urine Culture - Final Urine,Clean Catch A&P Assessment and plan 1. Diabetic infection of right foot: 2. Type 2 diabetes mellitus: 3. ESRD on dialysis: 4. RLS (restless legs syndrome): 5. TARA (obstructive sleep apnea): 6. Missed dialysis: Plan: Right diabetic foot infection Plan MRI right foot - MR/MR foot RT wo con* [id number] IMPRESSION: 1. Small area of fatty bone marrow replacement involving the base of the residual fifth metatarsal at the cuboid articulation suspicious for osteomyelitis similar to previous. Small amount of fluid and edema in this area.. 2. No drainable fluid collection or abscess in the region of the plantar ulcerations described above. 3. Diffuse cellulitis - Status post right foot excisional debridement down to level of bone -Follow wound cultures, so far showing Pseudomonas Plan - IV vancomycin - Discussed with patient trying cefepime she does not remember if she had a true allergy to Rocephin, but she was on cefazolin and then Keflex for an HD catheter infection back in December this year, denies any issues - Infectious disease consulted End-stage renal disease on dialysis, patient did not receive dialysis this morning, nephrology consulted - Plan for dialysis today Type 2 diabetes mellitus, low-dose sliding scale Full code Eliquis for DVT prophylaxis Plan for today continue IV antibiotics PDMP PDMP Reviewed: Not Reviewed Attestations 2 Medical Necessity Statement*: Requires hospitalization for right diabetic foot infection, requiring IV antibiotics Diagnoses Diabetic infection of right foot E11.628; L08.9 Type 2 diabetes mellitus E11.9 ESRD on dialysis N18.6; Z99.2 RLS (restless legs syndrome) G25.81 TARA (obstructive sleep apnea) G47.33 Missed dialysis
[2025-09-06] MEDS: DEXAMETHASONE 0.1% 1 DROP XX ×2 (18:15→23:59)
[2025-09-06 18:17] LABS: Troponin 5 6HR 90.70 ng/L (0-10); Troponin 5 6HR Delta -3.30 ng/L (0-12)
[2025-09-06] MEDS: cefepime 1,000 mg SDV 1000 MG IVP (21:24)
[2025-09-06] MEDS: diphenhydrAMINE 50 mg/mL SDV 1mL 25 MG IVP (23:05)
[2025-09-07] VITALS (8 sets, daily range): BP systolic 101–192; BP diastolic 47–73; PULSE 50–64; RESP 15–18; TEMP 36.4–36.6; O2SAT 90–97
[2025-09-07] MEDS: HYDROcodone-acetaminophen 7.5-325 mg Tablet 1 TAB PO ×3 (02:09→20:32)
[2025-09-07] MEDS: DEXAMETHASONE 0.1% 1 DROP XX ×4 (05:16→22:10)
[2025-09-07 05:44] LABS: Hematocrit 29.2 % (36-47); Hemoglobin 8.60 g/dL (11.27-16.99); Mean Corpuscular HGB Conc 29.5 g/dL (30-55); Mean Corpuscular Hemoglobin 27.0 pg (27-33); Mean Corpuscular Volume 91.5 fl (85-98); Nucleated Red Blood Cells % 0 %; Platelet Count 101 10^3/cmm (157-399); Red Blood Count 3.19 10^6/uL (3.85-5.65); White Blood Count 5.75 10^3/uL (3.29-11.43)
[2025-09-07 06:02] LABS: Anion Gap 17.4 (5-19); Blood Urea Nitrogen 34 mg/dL (8-23); Calcium 7.8 mg/dL (8.5-10.5); Carbon Dioxide 25 mmol/L (22-29); Chloride 103 mmol/L (98-107); Glucose 135 mg/dL (65-115); Osmolality Calculated 300 mOsm/kg (285-295); Potassium 5.4 mmol/L (3.5-5.1); Sodium 140 mmol/L (136-145)
[2025-09-07 06:06] LABS: Creatinine Clr Calc Pharmacy 11.0405
[2025-09-07] MEDS: methylPREDNISolone sod succ 125 mg/2 mL INJ IVP (09:22)
--- NOTE | 2025-09-07 10:59 | P.PN_ITS ---
Subjective 2 Subjective: s/p HD yesterday Medications: Reviewed: Yes Vitals/I&O/Wt Last Vital Signs Temp 97.7 F 09/07/25 07:32 Pulse 53 L 09/07/25 07:44 Resp 16 09/07/25 07:44 BP 101/47 09/07/25 07:32 Pulse Ox 97 09/07/25 07:44 O2 Del Method Nasal Cannula 09/07/25 07:44 O2 Flow Rate 2 09/07/25 07:44 09/06/25 09/07/25 09/07/25 22:59 06:59 14:59 Intake Total 600 / 1870 240 / 2110 240 / 240 Output Total 150 / 688 200 / 200 Balance 600 / 1332 90 / 1422 40 / 40 Weight last 48 hrs Weight 122.924 kg Weight 123.06 kg Weight 119.295 kg Physical Exam 2 Narrative: no distress No JVD HEERLA S1S2 RRR per report Lungs clear Abd soft , non tender No edema no rash pSYCH - no anxiety Neuro - deferred Data 09/08/25 05:15 09/08/25 12:52 Micro: Microbiology 09/05/25 10:50 Gram Stain - Final Other Source Anaerobic Culture - Preliminary Wound Culture - Preliminary Gram Negative Rods 09/05/25 10:50 Gram Stain - Final Bone Tissue Culture - Preliminary 09/04/25 04:50 Urine Culture - Final Urine,Clean Catch A&P Assessment and plan 1. End stage renal disease on dialysis: 1. ESRD : on TTS schedule , HD yesterday , next HD tomorrow 2. HTN : Resumed home meds 3. Anemia : Hb 8.5 , s/p HIRO 4. Right foot infection 5. AMS , while on HD , CT Head- no acute process Pt evaluated using audiovisual cart. Time spent 40 min PDMP PDMP Reviewed: Not Reviewed Attestations 2 Medical Necessity Statement*: per medicine Coding Level of Care Code Acute Code for Chg Fwd Diagnoses End stage renal disease on dialysis N18.6; Z99.2
--- NOTE | 2025-09-07 13:05 | P.PN_ITS ---
Subjective 2 Subjective: Patient was seen this morning, alert oriented x 3, following all commands, denies any nausea, no vomiting, no fevers, no chills, no lightheadedness Vitals/I&O/Wt Last Vital Signs Temp 97.6 F 09/07/25 11:27 Pulse 56 L 09/07/25 11:27 Resp 18 09/07/25 11:27 BP 147/65 09/07/25 11:27 Pulse Ox 92 09/07/25 11:27 O2 Del Method Nasal Cannula 09/07/25 11:27 O2 Flow Rate 2 09/07/25 07:44 09/06/25 09/07/25 09/07/25 22:59 06:59 14:59 Intake Total 600 / 1870 240 / 2110 240 / 240 Output Total 150 / 688 200 / 200 Balance 600 / 1332 90 / 1422 40 / 40 Weight last 48 hrs Weight 122.924 kg Weight 123.06 kg Weight 119.295 kg Physical Exam 2 Const: COMMON NORMALS: no acute distress and patient oriented x3 Resp: COMMON NORMALS: normal respiratory effort, No retractions, No use of accessory muscles and clear to auscultation bilaterally AUSCULTATION: clear to auscultation bilaterally Cardio: COMMON NORMALS: regular rate, regular rhythm, S1 normal heart sound present and S2 normal heart sound present RATE: regular rate RHYTHM: r egular rhythm HEART SOUNDS: S1 normal heart sound present and S2 normal heart sound present GI: COMMON NORMALS: Normal to inspection, nondistended, normoactive bowel sounds present and non-tender Extremity: COMMON NORMALS: no calf tenderness and no pedal edema Neuro: COMMON NORMALS: patient oriented x3 Psych: COMMON NORMALS: mental status grossly normal Skin: NARRATIVE SKIN EXAM: Lower extremity wrapped Data 09/07/25 05:13 09/07/25 05:13 Micro: Microbiology 09/05/25 10:50 Gram Stain - Final Other Source Anaerobic Culture - Preliminary Wound Culture - Preliminary Gram Negative Rods 09/05/25 10:50 Gram Stain - Final Bone Tissue Culture - Preliminary 09/04/25 04:50 Urine Culture - Final Urine,Clean Catch A&P Assessment and plan 1. Diabetic infection of right foot: 2. Type 2 diabetes mellitus: 3. ESRD on dialysis: 4. RLS (restless legs syndrome): 5. TARA (obstructive sleep apnea): 6. Missed dialysis: Plan: Right diabetic foot infection Plan MRI right foot - MR/MR foot RT wo con* [id number] IMPRESSION: 1. Small area of fatty bone marrow replacement involving the base of the residual fifth metatarsal at the cuboid articulation suspicious for osteomyelitis similar to previous. Small amount of fluid and edema in this area.. 2. No drainable fluid collection or abscess in the region of the plantar ulcerations described above. 3. Diffuse cellulitis - Status post right foot excisional debridement down to level of bone -Follow wound cultures, so far showing Pseudomonas Plan - IV vancomycin - No known adverse reaction to cefepime last night, continue cefepime - Infectious disease consulted End-stage renal disease on dialysis, patient did not receive dialysis this morning, nephrology consulted - Has evidence of fluid overload, will need dialysis tomorrow Type 2 diabetes mellitus, low-dose sliding scale Pruritus, will give 1 dose of Solu-Medrol Full code Eliquis for DVT prophylaxis Plan for today continue IV antibiotics, dialysis tomorrow PDMP PDMP Reviewed: Not Reviewed Attestations 2 Medical Necessity Statement*: Patient requires hospitalization for right foot diabetic foot infection Diagnoses Diabetic infection of right foot E11.628; L08.9 Type 2 diabetes mellitus E11.9 ESRD on dialysis N18.6; Z99.2 RLS (restless legs syndrome) G25.81 TARA (obstructive sleep apnea) G47.33 Missed dialysis
--- NOTE | 2025-09-07 13:59 | XRR_ITS ---
PROCEDURE INFORMATION: Exam: XR Chest Exam date and time: 09/07/2025 2:55 PM Age: 65 years old Clinical indication: Shortness of breath; Prior surgery; Surgery date: 6+ months; Surgery type: Spinal fusion, dialysis cath; Additional info: SOB; Fluid overload TECHNIQUE: Imaging protocol: Radiologic exam of the chest. Views: 1 view. COMPARISON: CR (CHEST, ) 08/24/2025 8:43 PM FINDINGS: Tubes, catheters and devices: Left-sided central venous catheter is present with the tip in the SVC. Lungs: Bibasilar opacities are present. There is prominence of the interstitium throughout the lungs which may represent some edema. Pleural spaces: Unremarkable. No pleural effusion. No pneumothorax. Heart/Mediastinum: There is cardiomegaly. Bones/joints: Posterior fusion of the lower thoracic and upper lumbar spine is present. XR/XR chest 1V portable [id number] IMPRESSION: Cardiomegaly with bibasilar opacities which may represent infiltrates , atelectasis , or combination of both.
[2025-09-07 14:49] LABS: NT Pro B Type Natriuretic Pept 10162 pg/mL (0-125)
[2025-09-07] MEDS: FUROsemide 10 mg/mL SDV 10mL 60 MG IVP (15:18)
--- NOTE | 2025-09-07 16:22 | P.PN_ITS ---
Subjective 2 Subjective: Infectious disease progress notes no acute interim events afebrile, hemodynamically stable, no leukocytosis Medications: Reviewed: Yes Vitals/I&O/Wt Last Vital Signs Temp 97.6 F 09/07/25 15:25 Pulse 62 09/07/25 15:25 Resp 18 09/07/25 15:25 BP 151/66 09/07/25 15:25 Pulse Ox 90 09/07/25 15:25 O2 Del Method Nasal Cannula 09/07/25 15:25 O2 Flow Rate 2 09/07/25 07:44 09/07/25 09/07/25 09/07/25 06:59 14:59 22:59 Intake Total 240 / 2110 600 / 600 Output Total 150 / 688 200 / 200 Balance 90 / 1422 400 / 400 Weight last 48 hrs Weight 122.924 kg Weight 123.06 kg Weight 119.295 kg Physical Exam 2 Narrative: General: No acute distress, AO x3 HEENT: PERRLA, pupils bilaterally equal and reactive, pallors not present Chest: Normal vesicular breath sounds, no added sounds, equal good air entry bilaterally CVS: S1-S2 regular, no murmurs, no tachycardia, no gallops, no rubs Abdomen: Soft, nontender, no organomegaly, bowel sounds present Neuro: No focal deficits, no facial deformity, AO x3, power 5/5 in all limbs Data 09/07/25 05:13 09/07/25 05:13 Micro: Microbiology 09/05/25 10:50 Gram Stain - Final Other Source Anaerobic Culture - Preliminary Wound Culture - Final Pseudomonas aeruginosa 09/05/25 10:50 Gram Stain - Final Bone Tissue Culture - Preliminary 09/04/25 04:50 Urine Culture - Final Urine,Clean Catch A&P Assessment and plan 1. Osteomyelitis of foot: 65F with PMH as above p/w worsenng of left foot wound, full thickness extending to bone MRI with osteomyelitis of the 5th metatarsal and cuboid Outpatient cx with Pseudomonas aeruginosa s/t cefepime pending OR cx Can D/c aztreonam and vancomycin transition to cefepime 1 g iv every 24 hrs, at discharge can be transitioned to cefepime 2 g iv after HD on dialysis Chart notes allergy to ceftriaxone however patient has previosuly tolerated cefazolin in 12/2024 and oral Keflex. Will trial cefepime in the hospital first. Will follow OR cx 2. Bacteremia: recent micrococcus bacteremia , blood cx clear from current admission suspect likely contamination Plan: 09/07/25: Or cx updated to reflect GNR identified as Pseudomonas aeruginosa s/t cefepime. Patient tolerated Cefepime yesterday. Continue cefepime 1 g iv every 24 hrs (renally dosed for HD) and then transition to cefepime 2g iv three times per week after dialysis on HD days. She does not need a separate PICC line. Weekly CBC, creat, LFT, CRP while on rx. Patient may follow with me as outpatient vs may continue f/up with Dr. Padgett in [place]. Thank you for this consult. please call with any further questions or concerns PDMP PDMP Reviewed: Not Reviewed Attestations 2 Medical Necessity Statement*: per admitting Coding Level of Care Code Acute Code for [facility] Fwd Diagnoses Osteomyelitis of foot M86.9 Bacteremia R78.81
[2025-09-07] MEDS: pantoprazole 40 mg SDV IVP (17:04)
[2025-09-07] MEDS: cefepime 1,000 mg SDV 1000 MG IVP (20:33)
[2025-09-08] VITALS (13 sets, daily range): BP systolic 147–179; BP diastolic 50–79; PULSE 57–66; RESP 16–22; TEMP 36.2–37; O2SAT 92–97; BMI 46.6
[2025-09-08] MEDS: DEXAMETHASONE 0.1% 1 DROP XX ×4 (04:32→22:54)
[2025-09-08] MEDS: HYDROcodone-acetaminophen 7.5-325 mg Tablet 1 TAB PO ×2 (04:32→22:54)
[2025-09-08 05:46] LABS: Hematocrit 31.3 % (36-47); Hemoglobin 9.20 g/dL (11.27-16.99); Mean Corpuscular HGB Conc 29.4 g/dL (30-55); Mean Corpuscular Hemoglobin 26.5 pg (27-33); Mean Corpuscular Volume 90.2 fl (85-98); Nucleated Red Blood Cells % 0 %; Platelet Count 103 10^3/cmm (157-399); Red Blood Count 3.47 10^6/uL (3.85-5.65); White Blood Count 6.41 10^3/uL (3.29-11.43)
[2025-09-08 06:08] LABS: Anion Gap 19.8 (5-19); Blood Urea Nitrogen 52 mg/dL (8-23); Calcium 8.2 mg/dL (8.5-10.5); Carbon Dioxide 23 mmol/L (22-29); Chloride 94 mmol/L (98-107); Creatinine Clr Calc Pharmacy 9.2972; Glucose 284 mg/dL (65-115); Osmolality Calculated 296 mOsm/kg (285-295); Potassium 5.8 mmol/L (3.5-5.1); Sodium 131 mmol/L (136-145)
[2025-09-08] MEDS: calcium gluconate 0.9% NaCL 1 GM/50 ML PREMIX IV (08:35)
--- NOTE | 2025-09-08 10:55 | PC.SOCIAL ---
IMM Updated Updated pt on IMM. No questions voiced. Provided pt a copy. Initialed, dated, & timed copy in chart.
[2025-09-08 13:33] LABS: Blood Urea Nitrogen 28 mg/dL (8-23); Calcium 8.5 mg/dL (8.5-10.5); Carbon Dioxide 26 mmol/L (22-29); Chloride 97 mmol/L (98-107); Creatinine Clr Calc Pharmacy 17.2644; Glucose 161 mg/dL (65-115); Osmolality Calculated 291 mOsm/kg (285-295); Sodium 136 mmol/L (136-145)
[2025-09-08 13:42] LABS: Anion Gap 17.2 (5-19); Potassium 4.2 mmol/L (3.5-5.1)
--- NOTE | 2025-09-08 14:37 | P.PN_ITS ---
Subjective 2 Subjective: GETTING HD Medications: Reviewed: Yes Vitals/I&O/Wt Last Vital Signs Temp 97.6 F 09/08/25 11:47 Pulse 62 09/08/25 12:55 Resp 19 H 09/08/25 11:47 BP 151/67 09/08/25 12:55 Pulse Ox 92 09/08/25 11:47 O2 Del Method Nasal Cannula 09/08/25 11:47 O2 Flow Rate 2 09/08/25 08:00 09/07/25 09/08/25 09/08/25 22:59 06:59 14:59 Intake Total 240 / 840 890 / 890 Output Total 75 / 275 300 / 300 Balance 240 / 640 -75 / 565 590 / 590 Weight last 48 hrs Weight 123.286 kg Weight 122.924 kg Physical Exam 2 Narrative: no distress No JVD HEERLA S1S2 RRR per report Lungs clear Abd soft , non tender No edema no rash pSYCH - no anxiety Neuro - deferred Data 09/09/25 04:45 09/09/25 04:45 Micro: Microbiology 09/05/25 10:50 Gram Stain - Final Other Source Anaerobic Culture - Preliminary Wound Culture - Final Pseudomonas aeruginosa 09/05/25 10:50 Gram Stain - Final Bone Tissue Culture - Preliminary A&P Assessment and plan 1. End stage renal disease on dialysis: 1. ESRD : on TTS schedule , HD yesterday , next HD tODAY 2. HTN : Resumed home meds 3. Anemia : Hb 8.5 , s/p HIRO 4. Right foot infection , cultures show pseudomonas and currently on cefepime 5. AMS , while on HD , CT Head- no acute process Pt evaluated using audiovisual cart. Time spent 40 min PDMP PDMP Reviewed: Not Reviewed Attestations 2 Medical Necessity Statement*: per [facility] team Coding Level of Care Code Acute Code for Chg Fwd Diagnoses End stage renal disease on dialysis N18.6; Z99.2
[2025-09-08] MEDS: pantoprazole 40 mg SDV IVP (17:36)
--- NOTE | 2025-09-08 17:40 | P.PN_ITS ---
Subjective 2 Subjective: Patient was seen this morning, currently alert oriented x 3, follows all commands, she does report shortness of breath and edema, she is receiving dialysis Vitals/I&O/Wt Last Vital Signs Temp 97.7 F 09/08/25 16:32 Pulse 59 L 09/08/25 16:32 Resp 18 09/08/25 16:32 BP 172/72 09/08/25 16:32 Pulse Ox 97 09/08/25 16:14 O2 Del Method Nasal Cannula 09/08/25 16:14 O2 Flow Rate 2 09/08/25 08:00 09/08/25 09/08/25 09/08/25 06:59 14:59 22:59 Intake Total 890 / 890 Output Total 75 / 275 300 / 300 Balance -75 / 565 590 / 590 Weight last 48 hrs Weight 123.286 kg Weight 122.924 kg Physical Exam 2 Const: COMMON NORMALS: no acute distress and patient oriented x3 Resp: COMMON NORMALS: normal respiratory effort, No retractions and No use of accessory muscles AUSCULTATION: crackles Cardio: COMMON NORMALS: regular rate, regular rhythm, S1 normal heart sound present and S2 normal heart sound present RATE: regular rate RHYTHM: r egular rhythm HEART SOUNDS: S1 normal heart sound present and S2 normal heart sound present GI: COMMON NORMALS: Normal to inspection, nondistended, normoactive bowel sounds present and non-tender Extremity: OTHER: 1+ pitting edema Neuro: COMMON NORMALS: patient oriented x3 Psych: COMMON NORMALS: mental status grossly normal Data 09/08/25 05:15 09/08/25 12:52 Micro: Microbiology 09/05/25 10:50 Gram Stain - Final Other Source Anaerobic Culture - Preliminary Wound Culture - Final Pseudomonas aeruginosa 09/05/25 10:50 Gram Stain - Final Bone Tissue Culture - Preliminary A&P Assessment and plan 1. Diabetic infection of right foot: 2. Type 2 diabetes mellitus: 3. ESRD on dialysis: 4. RLS (restless legs syndrome): 5. TARA (obstructive sleep apnea): 6. Missed dialysis: Plan: Right diabetic foot infection Plan MRI right foot - MR/MR foot RT wo con* [id number] IMPRESSION: 1. Small area of fatty bone marrow replacement involving the base of the residual fifth metatarsal at the cuboid articulation suspicious for osteomyelitis similar to previous. Small amount of fluid and edema in this area.. 2. No drainable fluid collection or abscess in the region of the plantar ulcerations described above. 3. Diffuse cellulitis - Status post right foot excisional debridement down to level of bone -Follow wound cultures, so far showing Pseudomonas Plan - IV vancomycin - No known adverse reaction to cefepime last night, continue cefepime - Infectious disease consulted End-stage renal disease on dialysis, patient did not receive dialysis this morning, nephrology consulted - Has evidence of fluid overload, receiving dialysis Type 2 diabetes mellitus, low-dose sliding scale Pruritus, resolving Sacral decubitus ulcer, on examination stage I, measuring 1 x 1 cm, discussed continued repositioning, offloading, changing positions every 2 hours Full code Eliquis for DVT prophylaxis Plan for today continue IV antibiotics, dialysis tomorrow PDMP PDMP Reviewed: Not Reviewed Attestations 2 Medical Necessity Statement*: Patient requires hospitalization for right foot diabetic foot infection, requiring antibiotics, fluid overload requiring dialysis Diagnoses Diabetic infection of right foot E11.628; L08.9 Type 2 diabetes mellitus E11.9 ESRD on dialysis N18.6; Z99.2 RLS (restless legs syndrome) G25.81 TARA (obstructive sleep apnea) G47.33 Missed dialysis
[2025-09-08] MEDS: cefepime 1,000 mg SDV 1000 MG IVP (20:52)
[2025-09-08] MEDS: ondansetron 2 mg/ML SDV 2 mL 4 MG IVP (21:11)
[2025-09-09] VITALS (54 sets, daily range): BP systolic 109–177; BP diastolic 29–129; PULSE 49–104; RESP 8–28; TEMP 36.4–36.8; O2SAT 88–100
[2025-09-09 05:28] LABS: Hematocrit 30.6 % (36-47); Hemoglobin 9.10 g/dL (11.27-16.99); Mean Corpuscular HGB Conc 29.7 g/dL (30-55); Mean Corpuscular Hemoglobin 26.6 pg (27-33); Mean Corpuscular Volume 89.5 fl (85-98); Nucleated Red Blood Cells % 0 %; Platelet Count 98 10^3/cmm (157-399); Red Blood Count 3.42 10^6/uL (3.85-5.65); White Blood Count 7.44 10^3/uL (3.29-11.43)
[2025-09-09] MEDS: ondansetron 2 mg/ML SDV 2 mL 4 MG IVP (05:34)
[2025-09-09 05:58] LABS: Anion Gap 19.2 (5-19); Blood Urea Nitrogen 44 mg/dL (8-23); Calcium 7.8 mg/dL (8.5-10.5); Carbon Dioxide 25 mmol/L (22-29); Chloride 99 mmol/L (98-107); Creatinine Clr Calc Pharmacy 12.1484; Glucose 152 mg/dL (65-115); NT Pro B Type Natriuretic Pept 11777 pg/mL (0-125); Osmolality Calculated 300 mOsm/kg (285-295); Potassium 5.2 mmol/L (3.5-5.1); Sodium 138 mmol/L (136-145)
[2025-09-09] MEDS: HYDROcodone-acetaminophen 7.5-325 mg Tablet 1 TAB PO ×3 (07:15→23:37)
[2025-09-09] MEDS: DEXAMETHASONE 0.1% 1 DROP XX ×2 (07:16→17:23)
--- NOTE | 2025-09-09 07:17 | P.PN_ITS ---
Subjective 2 Subjective: Patient seen at bedside this morning. Resting comfortably. No overnight events. Vitals/I&O/Wt Last Vital Signs Temp 97.5 F L 09/09/25 04:00 Pulse 58 L 09/09/25 04:00 Resp 17 09/09/25 04:00 BP 138/61 09/09/25 04:00 Pulse Ox 93 09/09/25 04:00 O2 Del Method Nasal Cannula 09/09/25 04:00 O2 Flow Rate 3 09/09/25 04:00 09/08/25 09/09/25 09/09/25 22:59 06:59 14:59 Intake Total 480 / 1870 Balance 480 / -927 Weight last 48 hrs Weight 277 lb 8 oz Weight 274 lb 11.135 oz Weight 271 lb 12.8 oz Physical Exam 2 Narrative: EXAM NARRATIVE: GENERAL: Patient is alert and oriented ?3 and in no acute distress. The following is a focused right lower extremity exam. Utilizes an electric scooter or has a cam boot for offloading. VASCULAR: Dorsalis pedis decreased, posterior tibial arteries palpable. Capillary refill time less than 3 seconds to the distal hallux bilaterally. Calf is supple and nontender proximally and distally. Decreased pedal hair growth. NEUROLOGICAL: Protective sensation intact 0/10 sites, tested with [place] Phan monofilament to bilateral feet. DERMATOLOGICAL: Grade 3 wound right foot subfourth and fifth tarsometatarsal articulation. No underlying fluctuance or signs of deep space abscess at dressing change this morning. 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 Data 09/09/25 04:45 09/09/25 04:45 Micro: Microbiology 09/03/25 17:39 Blood Culture - Final Blood NO GROWTH AFTER 5 DAYS 09/03/25 17:32 Blood Culture - Final Blood NO GROWTH AFTER 5 DAYS 09/05/25 10:50 Gram Stain - Final Other Source Anaerobic Culture - Preliminary Wound Culture - Final Pseudomonas aeruginosa 09/05/25 10:50 Gram Stain - Final Bone Tissue Culture - Preliminary A&P Assessment and plan 1. Diabetic ulcer of right foot associated with diabetes mellitus due to underlying condition, with fat layer exposed, unspecified part of foot: 2. Type 2 diabetes mellitus: 3. Diabetic infection of right foot: Plan: - Right foot full-thickness ulcerations -Labs and vitals reviewed -WBC 6.2 -ESR 43 - VSS -Cultures: Pseudomonas -Abx per ID -Diet: Okay for diet from podiatry standpoint - No further surgical intervention by podiatry during this admission. Appreciate ID recommendations. -Pain Mgmt: Per primary team -Weight bearing: Nonweightbearing to right foot -Dressings: Hydrofera Blue, dry sterile dressing daily -Continue current Abx therapy until ID and Sensitivity results -Trend labs -Discharge plan: Okay to discharge home from podiatry standpoint. Podiatry discharge instructions placed -Podiatry will sign off. Please reconsult if needed. PDMP PDMP Reviewed: Not Reviewed Attestations 2 Medical Necessity Statement*: See hospitalist note Coding Level of Care Code Acute Code for [facility] Fwd Diagnoses Diabetic ulcer of right foot associated with diabetes mellitus due to underlying condition, with fat layer exposed, unspecified part of foot E08.621; L97.512 Diabetic foot ulcer location: unspecified part of foot Laterality: right Non-pressure ulcer stage: with fat layer exposed Type 2 diabetes mellitus E11.9 Diabetic infection of right foot E11.628; L08.9
--- NOTE | 2025-09-09 08:48 | XRR_ITS ---
PROCEDURE INFORMATION: Exam: XR Chest Exam date and time: 09/09/2025 9:11 AM Age: 65 years old Clinical indication: Shortness of breath; Prior surgery; Surgery date: 6+ months; Surgery type: Surgery--spine dialysis cath; Additional info: SOB TECHNIQUE: Imaging protocol: Radiologic exam of the chest. Views: 1 view. COMPARISON: CR (CHEST, ) 09/07/2025 2:55 PM FINDINGS: Tubes, catheters and devices: A double-lumen catheter is placed via the left internal jugular vein with its tip at the level of the SVC. Lungs: There is mild prominence and indistinctness of the pulmonary vasculature and mild prominence of the SVC. There are strandy and hazy opacities present predominantly within the left lung base and, to a lesser extent superimposed over the right hemidiaphragm. Pleural spaces: Trace fluid or pleural thickening is seen within the minor fissure. Heart/Mediastinum: The cardiac profile is mildly prominent. Bones/joints: Unremarkable. Other findings: Status post PLIF at the T9-T12 level. XR/XR chest 1V portable [id number] IMPRESSION: 1. Stable placement of the double-lumen catheter with tip in the SVC. 2. Mild prominence of the cardiomediastinal silhouette with bilateral basilar hazy linear opacities and minimal fluid present in the minor fissure, findings suggesting volume overload or cardiac decompensation.
[2025-09-09 11:01] LABS: ABG PH Result 7.28 (7.35-7.45); Arterial Blood Gas Hematocrit 29.7 % (37-47); Blood Gas Allen Test Pos; Blood Gas LPM 4.0 %; Blood Gas Operator Identificat AMH; Blood Gas Sample Site Radial, left; HCO3 ABG 29.4 mmol/L (22-26); PO2 ABG 40.2 mmHg (80.0-100.0); PO2 FiO2 Ratio Arterial Blood 111
[2025-09-09 11:02] LABS: ABG PCO2 63.2 mmHg (35-45)
[2025-09-09 11:09] LABS: Blood Gas Sample Type MixedVenous
[2025-09-09] MEDS: FUROsemide 10 mg/mL SDV 10mL 60 MG IVP (11:10)
[2025-09-09] MEDS: metoclopramide 5 mg/mL SDV 2 mL IVP (11:10)
--- NOTE | 2025-09-09 11:34 | ECG_ITS ---
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 Measurements Intervals [place] Rate: 51 P: 71 MD: 185 QRS: -1 QRSD: 94 T: 12 QT: 474 QTc: 439 Interpretive Statements SINUS BRADYCARDIA WITH OCCASIONAL SUPRAVENTRICULAR PREMATURE COMPLEXES POSSIBLE ANTERIOR MYOCARDIAL INFARCTION , PROBABLY OLD [30 ms Q WAVE IN V3/V4, OR R < 0.2 mV IN V4] Compared to ECG 09/06/2025 16:29:06 No significant changes Electronically Signed On 09-09-2025 15:33:54 CDT by Christian Contreras M.D. [email or web address] [id number]
[2025-09-09] MEDS: LORazepam 1 MG/0.5 ML injection IVP (11:51)
[2025-09-09 12:46] LABS: Troponin(5th) Baseline 75 ng/L (0-10)
[2025-09-09 12:53] LABS: Procalcitonin 0.93 ng/mL (0-0.5)
--- NOTE | 2025-09-09 13:02 | ECG_ITS ---
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 Measurements Intervals [place] Rate: 52 P: 112 DE: 174 QRS: 1 QRSD: 96 T: 10 QT: 464 QTc: 432 Interpretive Statements SINUS BRADYCARDIA POSSIBLE ANTERIOR MYOCARDIAL INFARCTION , PROBABLY OLD [30 ms Q WAVE IN V3/V4, OR R < 0.2 mV IN V4] Compared to ECG 09/09/2025 11:34:56 No significant changes Electronically Signed On 09-09-2025 19:37:06 CDT by Christian Contreras M.D. [id number]
--- NOTE | 2025-09-09 13:14 | PC.NURSE ---
received patient from [place] at this time patient alert oriented and appears comfortable on NC
[2025-09-09 14:32] LABS: Troponin 5 2HR 73.92 ng/L (0-10)
[2025-09-09 14:40] LABS: Troponin 5 2HR Delta -1.08 ABS# (0-10)
--- NOTE | 2025-09-09 15:52 | PC.NURSE ---
Report received from KWAKU Engle, assumed care of patient.
--- NOTE | 2025-09-09 16:35 | PC.NURSE ---
aircraft systems technician to bedside to attempt to flush IV to left anticubital space inserted by Dr. Bear. IV infiltrated. Notified Dr. Pink.
--- NOTE | 2025-09-09 16:41 | ECG_ITS ---
[facility]25[facility]09 Pat Name: Berenice Pierce Department: Room: [facility] Gender: Female Medical Office Secretary: : 1960 Requested By: Ruben Pink Order Number: [id number] Pasquale MD: Christian Contreras M.D. Measurements Intervals [place] Rate: 52 P: 18 WA: 183 QRS: 0 QRSD: 97 T: 8 QT: 459 QTc: 429 Interpretive Statements SINUS BRADYCARDIA WITH SINUS ARRHYTHMIA Compared to ECG 09/09/2025 13:02:59 Myocardial infarct finding no longer present Electronically Signed On 09-09-2025 19:36:27 CDT by Christian Contreras M.D. [id number] [id number]
--- NOTE | 2025-09-09 16:44 | XRR_ITS ---
PROCEDURE INFORMATION: Exam: XR Abdomen Exam date and time: 09/09/2025 4:53 PM Age: 65 years old Clinical indication: Bloating; Prior surgery; Surgery date: 6+ months; Surgery type: Spine; Additional info: Distention TECHNIQUE: Imaging protocol: Radiologic exam of the abdomen. Views: Frontal supine view of the abdomen. 1 View. COMPARISON: CT abdomen pelvis wo con [id number] 08/24/2025 9:09 PM FINDINGS: Gastrointestinal tract: Bowel gas pattern nonobstructive. Large fecal load in the colon. Intraperitoneal space: No evidence of free intraperitoneal air. Atherosclerotic vascular calcifications in the pelvis. Naked Bones/joints: Unremarkable. XR/XR KUB portable [id number] IMPRESSION: 1. No evidence of intestinal obstruction or perforation radiographically. 2. Large fecal load in the colon.
--- NOTE | 2025-09-09 16:44 | USR_ITS ---
PROCEDURE INFORMATION: Exam: US Duplex Lower Extremity Veins, Bilateral Exam date and time: 09/09/2025 5:03 PM Age: 65 years old Clinical indication: Swelling (edema) of limb; Lower extremity, bilateral TECHNIQUE: Imaging protocol: Real-time duplex ultrasound of the bilateral extremities with 2-D jung scale, color Doppler flow and spectral waveform analysis including responses to compression and other maneuvers (when performed) with image documentation. Complete exam focused on the lower extremity veins. COMPARISON: MR foot RT wo con* [id number] 09/04/2025 10:53 AM FINDINGS: Right deep veins: Unremarkable. The common femoral, femoral, proximal profunda femoral and popliteal veins are patent without thrombus. Normal Doppler waveforms. Normal compressibility and/or augmentation response. Calf veins not well visualized due to body habitus and bandaging. Left deep veins: Unremarkable. The common femoral, femoral, proximal profunda femoral and popliteal veins are patent without thrombus. Normal Doppler waveforms. Normal compressibility and/or augmentation response. Calf veins not well visualized. Superficial veins: Greater saphenous veins at the saphenofemoral junctions are patent bilaterally without thrombus. Soft tissues: Unremarkable. US/[place] [id number] IMPRESSION: 1. No evidence of deep vein thrombosis or superficial vein thrombosis in the visualized veins of the lower extremities bilaterally. 2. Calf veins not well visualized due to body habitus and ankle bandaging.
--- NOTE | 2025-09-09 17:05 | SUR.PREOP ---
MIDLINE NOTE Patient evaluated for Midline placment at Dr Pink request. Patient noted to have bilateral AV Fistulas present in both arms. Right extemity out d/t AV graft planned for surgical revascularization i'm told. Left arm evaluated but not viable access points noted. AV fistula placement that has since failed and no bruit or thrill is present within the old graft on the left ARM. I have reservations placing the midline in the left arm d/t the AV graft contraindication as well as minimal heathy conduit being availiable for placement that I found. Her risk of AV rupture/dissection; Venous thrombus formation and potential loss of surgical revascular options of the existing AV graft (if needed in the future) in the left arm are of some concern, as well as the plan is to use the line for a contrast CT injection. I discussed my concerns with the staff which relayed the information to Dr Pink that this patient is not at candiate to safely place a midline/picc on for the reasons stated above. He stated ok at this point and to cancel the line if she wasn't a canidate. Noted.
--- NOTE | 2025-09-09 17:08 | PM.PN ---
Subjective Subjective: - I was urgently called to the room by clinical nursing professor as patient was complaining of shortness of breath and found to be hypoxic - On 2 L, she was tachypneic respiratory rate 30, suprasternal retraction intercostal retractions, complaining of shortness of breath, abdominal discomfort, bloating, she reports no chest pain, she is passing gas, she has had a bowel movement yesterday, no lightheadedness, no dizziness, does have 2+ pitting edema, crackles on examination - 2 L during our conversation her O2 sats were dropping to the mid 80s - She was placed on 4 L - Examined her O2 sats remained in the low 90s - ABG ordered shows acute hypoxic hypercarbic respiratory failure - She was placed on BiPAP, chest x-ray, BNP, CRP, Pro-Maury, ordered -Patient reporting anxiety, was not tolerating BiPAP, plans on moving to ICU for close monitoring, Precedex drip, nephrology consulted for dialysis - Plans on moving to ICU for acute hypoxic hypercarbic respiratory failure Vitals/I&O/Wt Last Vital Signs Temp 97.9 F 09/09/25 10:42 Pulse 51 L 09/09/25 16:55 Resp 18 09/09/25 16:55 BP 124/43 09/09/25 16:55 Pulse Ox 89 L 09/09/25 16:55 O2 Del Method Nasal Cannula 09/09/25 16:55 O2 Flow Rate 4 09/09/25 16:55 FiO2 35 09/09/25 12:02 Weight last 48 hrs Weight 125.872 kg Weight 124.6 kg Weight 123.286 kg Physical Exam Const: COMMON NORMALS: no acute distress and patient oriented x3 Resp: COMMON NORMALS: normal respiratory effort, No retractions and No use of accessory muscles AUSCULTATION: crackles and wheezes Cardio: COMMON NORMALS: regular rate, regular rhythm, S1 normal heart sound present and S2 normal heart sound present RATE: regular rate RHYTHM: regular rhythm HEART SOUNDS: S1 normal heart sound present and S2 normal heart sound present GI: COMMON NORMALS: Normal to inspection, nondistended, normoactive bowel sounds present and non-tender Extremity: COMMON NORMALS: no pedal edema Neuro: COMMON NORMALS: patient oriented x3, CN's II-XII intact bilaterally and moves all extremities Psych: COMMON NORMALS: mental status grossly normal Data 09/09/25 04:45 09/09/25 04:45 Micro: Microbiology 09/05/25 10:50 Gram Stain - Final Other Source Anaerobic Culture - Preliminary Wound Culture - Final Pseudomonas aeruginosa 09/05/25 10:50 Gram Stain - Final Bone Tissue Culture - Preliminary Gram Negative Rods 09/03/25 17:39 Blood Culture - Final Blood NO GROWTH AFTER 5 DAYS 09/03/25 17:32 Blood Culture - Final Blood NO GROWTH AFTER 5 DAYS A&P Assessment and plan 1. Diabetic infection of right foot: 2. Type 2 diabetes mellitus: 3. ESRD on dialysis: 4. RLS (restless legs syndrome): 5. TARA (obstructive sleep apnea): 6. Missed dialysis: Plan: Right diabetic foot infection Plan MRI right foot - MR/MR foot RT wo con* [id number] IMPRESSION: 1. Small area of fatty bone marrow replacement involving the base of the residual fifth metatarsal at the cuboid articulation suspicious for osteomyelitis similar to previous. Small amount of fluid and edema in this area.. 2. No drainable fluid collection or abscess in the region of the plantar ulcerations described above. 3. Diffuse cellulitis - Status post right foot excisional debridement down to level of bone -Follow wound cultures, so far showing Pseudomonas Plan - IV cefepime - No known adverse reaction to cefepime last night, continue cefepime - Infectious disease consulted Type 2 diabetes mellitus, low-dose sliding scale Pruritus, resolving Sacral decubitus ulcer, on examination stage I, measuring 1 x 1 cm, discussed continued repositioning, offloading, changing positions every 2 hours Acute hypoxic hypercarbic respiratory failure - With evidence of fluid overload - Moved to ICU, Bnp, troponin, CMP, Pro-Maury, CMP, CMP, BiPAP therapy will consider Precedex Full code Eliquis for DVT prophylaxis Plan for today continue IV antibiotics, dialysis, moved to ICU, acute hypoxic respiratory failure PDMP PDMP Reviewed: Not Reviewed Attestations Medical Necessity Statement*: Requires hospitalization for right foot diabetic foot infection, acute hypoxic respiratory failure Diagnoses Diabetic infection of right foot E11.628; L08.9 Type 2 diabetes mellitus E11.9 ESRD on dialysis N18.6; Z99.2 RLS (restless legs syndrome) G25.81 TARA (obstructive sleep apnea) G47.33 Missed dialysis
--- NOTE | 2025-09-09 17:13 | PC.NURSE ---
Multiple attempts made to establish IV access for CTA were unsuccessful. Patient has bilateral upper extremity fistula, limiting available sites for IV placement. Existing peripheral veins that was able to be accessed was unable to tolerate pressure required for CTA contrast administration. Provider notified multiple times regarding inability to obtain IV access. Patient has no visible signs or symptoms of respiratory distress and is on base line o2 requirements with saturations of 96%. Patient denies shortness of breath. Awaiting further instructions regarding CTA
[2025-09-09] MEDS: pantoprazole 40 mg SDV IVP (17:23)
[2025-09-09 18:54] LABS: Troponin 5 6HR 71.52 ng/L (0-10)
--- NOTE | 2025-09-09 18:55 | PC.HD ---
Arrived in ICU at 14:50 to do urgent dialysis treatment for respiratory distress, was told that the patient was to go for a CTA prior to dialysis but they were having difficulty establishing an IV that would be able to receive the IV contrast. After multiple US guided insertions by multiple people failed to result in adequate access, CTA was cancelled. Dr Oliva contacted, patient in no distress since transfer to ICU per DISABILITY AIDE, still wants to proceed with treatment. Treatment started at 17:41.
[2025-09-09 19:04] LABS: Troponin 5 6HR Delta -3.48 ng/L (0-12)
--- NOTE | 2025-09-09 19:23 | PM.PN ---
Subjective Subjective: pt transferred to ICU due to resp distress Medications: Reviewed: Yes Vitals/I&O/Wt Last Vital Signs Temp 97.7 F 09/09/25 18:51 Pulse 50 L 09/09/25 18:51 Resp 20 H 09/09/25 18:51 BP 115/29 09/09/25 18:51 Pulse Ox 89 L 09/09/25 16:55 O2 Del Method Nasal Cannula 09/09/25 16:55 O2 Flow Rate 4 09/09/25 16:55 FiO2 35 09/09/25 12:02 09/09/25 09/09/25 09/09/25 06:59 14:59 22:59 Intake Total 200 / 200 Balance 200 / 200 Weight last 48 hrs Weight 125.872 kg Weight 124.6 kg Weight 123.286 kg Physical Exam Narrative: awake , alert No JVD HEERLA S1S2 RRR per report Lungs clear Abd soft , non tender No edema no rash pSYCH - no anxiety Data 09/09/25 04:45 09/09/25 04:45 Micro: Microbiology 09/05/25 10:50 Gram Stain - Final Other Source Anaerobic Culture - Preliminary Wound Culture - Final Pseudomonas aeruginosa 09/05/25 10:50 Gram Stain - Final Bone Tissue Culture - Preliminary Gram Negative Rods 09/03/25 17:39 Blood Culture - Final Blood NO GROWTH AFTER 5 DAYS 09/03/25 17:32 Blood Culture - Final Blood NO GROWTH AFTER 5 DAYS A&P Assessment and plan 1. End stage renal disease on dialysis: 1. ESRD : on TTS schedule , HD yesterday , repeat HD today for resp distress , noted high K 2. HTN : Resumed home meds 3. Anemia : Hb 9.1 , s/p HIRO 4. Right foot infection , cultures show pseudomonas and currently on cefepime 5. AMS , improved 6. acute resp failure , multifactorial , HD today Pt evaluated using audiovisual cart. Time spent 40 min PDMP PDMP Reviewed: Not Reviewed Attestations Medical Necessity Statement*: per [facility] Coding Level of Care Code Acute Code for [facility] Fwd Diagnoses End stage renal disease on dialysis N18.6; Z99.2
[2025-09-09] MEDS: heparin, porcine 1,000 unit/mL INJ 10 mL 1000 UNIT IV (20:37)
[2025-09-09] MEDS: heparin, porcine 1,000 unit/mL INJ 10 mL 10000 UNIT INTRACATH (20:38)
[2025-09-09] MEDS: cefepime 1,000 mg SDV 1000 MG IVP (21:21)
--- NOTE | 2025-09-09 23:40 | PC.NURSE ---
Addendum entered by YVAN Carvajal 09/10/25 00:34: Patient still rating leg pain 10/10 still and requesting more medication. PRN morphine administered. Asked patient how she manages pain at home and she stated I usually just take an extra pain pill, muscle relaxer, and put a heating pad on my legs. Educated patient on importance of taking medications as prescribed. Placed warm blankets on patients legs as well. Original Note: Patient refused ear drops due to rating leg pain 12/10. PRN pain meds administered.
[2025-09-10] VITALS (52 sets, daily range): BP systolic 86–197; BP diastolic 29–100; PULSE 48–91; RESP 14–27; TEMP 36.2–37.2; O2SAT 90–100
[2025-09-10] MEDS: morphine 4 mg/mL SDV 1 mL 2 MG IVP ×2 (00:23→19:50)
--- NOTE | 2025-09-10 00:53 | PC.NURSE ---
RT asked patient if she wanted to be placed on bipap, she stated she is not tired and refused.
[2025-09-10 04:11] LABS: Hematocrit 29.1 % (36-47); Hemoglobin 8.50 g/dL (11.27-16.99); Mean Corpuscular HGB Conc 29.2 g/dL (30-55); Mean Corpuscular Hemoglobin 26.1 pg (27-33); Mean Corpuscular Volume 89.3 fl (85-98); Nucleated Red Blood Cells % 0 %; Platelet Count 102 10^3/cmm (157-399); Red Blood Count 3.26 10^6/uL (3.85-5.65); White Blood Count 6.75 10^3/uL (3.29-11.43)
--- NOTE | 2025-09-10 04:30 | PC.NURSE ---
Morning BP Medications Patient's heart rate 56 with a blood pressure 128/39 MAP 68. 25 mg metoprolol, 200 mg amiodarone, 100 mg hydralazine, 10 mg amlodipine due this AM. Dr. Hendrickson contacted and verification received to hold the morning doses of these medications.
[2025-09-10 04:40] LABS: Alanine Aminotransferase 31 U/L (0-33); Albumin Level 3.5 g/dL (3.5-5.2); Alkaline Phosphatase 195 U/L (35-105); Anion Gap 16.5 (5-19); Aspartate Amino Transferase 18 U/L (0-32); Blood Urea Nitrogen 30 mg/dL (8-23); Calcium 7.7 mg/dL (8.5-10.5); Carbon Dioxide 28 mmol/L (22-29); Chloride 100 mmol/L (98-107); Creatinine Clr Calc Pharmacy 15.2482; Globulin 3.0 g/dL (1.3-4.6); Glucose 129 mg/dL (65-115); Magnesium 2.1 mg/dL (1.7-2.3); Osmolality Calculated 298 mOsm/kg (285-295); Potassium 4.5 mmol/L (3.5-5.1); Sodium 140 mmol/L (136-145); Total Protein 6.5 g/dL (6.6-8.7)
[2025-09-10] MEDS: DEXAMETHASONE 0.1% 1 DROP XX ×3 (04:52→22:47)
[2025-09-10 05:19] LABS: NT Pro B Type Natriuretic Pept 10338 pg/mL (0-125); Procalcitonin 0.87 ng/mL (0-0.5)
--- NOTE | 2025-09-10 07:00 | XRR_ITS ---
PROCEDURE INFORMATION: Exam: XR Chest Exam date and time: 09/10/2025 5:59 AM Age: 65 years old Clinical indication: Shortness of breath; Prior surgery; Surgery date: 6+ months; Surgery type: Dialysis cath; Additional info: SOB TECHNIQUE: Imaging protocol: Radiologic exam of the chest. Views: 1 view. COMPARISON: CR XR chest 1V portable [id number] 09/09/2025 9:11 AM FINDINGS: Tubes, catheters and devices: Left dialysis catheter terminates in the SVC. Lungs: Poor inspiratory effort with bibasilar atelectasis or infiltrates. Pleural spaces: Unremarkable. No pleural effusion. No pneumothorax. Heart/Mediastinum: See Vasculature finding. Vasculature: Mild cardiomegaly and uncoiling of the thoracic aorta. Bones/joints: Incompletely imaged thoracolumbar posterior fusion. XR/XR chest 1V portable [id number] IMPRESSION: No significant change. Stable findings suggesting fluid overload/cardiac decompensation.
--- NOTE | 2025-09-10 08:00 | CTR_ITS ---
PROCEDURE INFORMATION: Exam: CT Chest Without Contrast; Diagnostic Exam date and time: 09/10/2025 4:52 PM Age: 65 years old Clinical indication: Shortness of breath; Additional info: SOB TECHNIQUE: Imaging protocol: Diagnostic computed tomography of the chest without contrast. Radiation optimization: All CT scans at this facility use at least one of these dose optimization techniques: automated exposure control; mA and/or kV adjustment per patient size (includes targeted exams where dose is matched to clinical indication); or iterative reconstruction. COMPARISON: CT angio chest w abd pel w con 12/25/2024 8:48 PM RADIATION DOSE METRICS: Total DLP (mGy-cm): 725.61 FINDINGS: Tubes, catheters and devices: Left-sided dialysis catheter with tip in the superior vena cava. Lungs: Lung windows demonstrate bibasilar atelectasis associated with pleural effusions. Mild patchy ill-defined opacity mid and lower lungs. Inability to exclude some component of infiltrate versus more prominent edema with atelectasis in the lung bases, particularly on the right. No suspicious nodule or mass. Pleural spaces: Small posterior pleural effusions bilaterally. No pneumothorax. Heart: Mild cardiomegaly. No significant pericardial effusion. Mild coronary artery calcification. Mild mitral annular calcification. Lymph nodes: Nonspecific mediastinal lymph nodes without significant enlargement or lymphadenopathy. Vasculature: Arteriosclerosis thoracic aorta. Bones/joints: Postsurgical posterior fusion hardware T8 through T11. Spondylotic change thoracic spine otherwise. Soft tissues: Unremarkable. CT/CT chest wo con [id number] IMPRESSION: 1. Findings most suggestive of fluid overload/CHF with small posterior pleural effusions bilaterally likely component of patchy edema. Subjacent atelectasis with pleural effusions in the lung bases, with inability to exclude infiltrate versus prominent edema with atelectasis in the lung bases, particularly on the right. 2. Left-sided dialysis catheter with tip in the SVC. 3. Postsurgical posterior fusion hardware T8 through T11.
--- NOTE | 2025-09-10 13:00 | PC.SOCIAL ---
IMM update pg 2 of IMM Updated and reviewed w/ patient. Copy provided and copy dated, initialed and placed in chart.
[2025-09-10] MEDS: pantoprazole 40 mg SDV IVP (17:44)
--- NOTE | 2025-09-10 18:59 | P.PN_ITS ---
Subjective 2 Subjective: Patient was seen this morning, currently alert oriented x 3, follows all commands, does report shortness of breath, but improving, her edema is improving, denies any chest pain, no palpitations, Vitals/I&O/Wt Last Vital Signs Temp 97.2 F L 09/10/25 04:30 Pulse 64 09/10/25 18:30 Resp 21 H 09/10/25 18:30 BP 125/56 09/10/25 18:30 Pulse Ox 96 09/10/25 18:30 O2 Del Method Nasal Cannula 09/10/25 08:06 O2 Flow Rate 2 09/10/25 08:06 FiO2 35 09/09/25 12:02 09/10/25 09/10/25 09/10/25 06:59 14:59 22:59 Intake Total 480 / 1180 360 / 360 120 / 480 Balance 480 / -1820 360 / 360 120 / 480 Weight last 48 hrs Weight 118 kg Weight 117 kg Weight 125.872 kg Physical Exam 2 Const: COMMON NORMALS: no acute distress and patient oriented x3 Resp: COMMON NORMALS: normal respiratory effort, No retractions and No use of accessory muscles OTHER: Crackles in all lung Cardio: COMMON NORMALS: regular rate, regular rhythm, S1 normal heart sound present and S2 normal heart sound present RATE: regular rate RHYTHM: r egular rhythm HEART SOUNDS: S1 normal heart sound present and S2 normal heart sound present GI: COMMON NORMALS: Normal to inspection, nondistended, normoactive bowel sounds present and non-tender Extremity: NARRATIVE EXTREMITY EXAM: 1+ edema Neuro: COMMON NORMALS: patient oriented x3, CN's II-XII intact bilaterally and moves all extremities Psych: COMMON NORMALS: mental status grossly normal Data 09/10/25 04:00 09/10/25 04:00 Micro: Microbiology 09/05/25 10:50 Gram Stain - Final Bone Tissue Culture - Final Pseudomonas aeruginosa 09/05/25 10:50 Gram Stain - Final Other Source Anaerobic Culture - Preliminary Wound Culture - Final Pseudomonas aeruginosa A&P Assessment and plan 1. Diabetic infection of right foot: 2. Type 2 diabetes mellitus: 3. ESRD on dialysis: 4. RLS (restless legs syndrome): 5. TARA (obstructive sleep apnea): 6. Missed dialysis: Plan: Right diabetic foot infection Plan MRI right foot - MR/MR foot RT wo con* [id number] IMPRESSION: 1. Small area of fatty bone marrow replacement involving the base of the residual fifth metatarsal at the cuboid articulation suspicious for osteomyelitis similar to previous. Small amount of fluid and edema in this area.. 2. No drainable fluid collection or abscess in the region of the plantar ulcerations described above. 3. Diffuse cellulitis - Status post right foot excisional debridement down to level of bone -Follow wound cultures, so far showing Pseudomonas Plan - IV cefepime - No known adverse reaction to cefepime last night, continue cefepime - Infectious disease consulted Type 2 diabetes mellitus, low-dose sliding scale Pruritus, resolving Sacral decubitus ulcer, on examination stage I, measuring 1 x 1 cm, discussed continued repositioning, offloading, changing positions every 2 hours Acute hypoxic hypercarbic respiratory failure - With evidence of fluid overload -Status post emergent session of dialysis - Concern for possible pneumonia?, Antibiotic therapy expanded to vancomycin, meropenem - Will continue torsemide - Continue IV antibiotics - Will advise patient to sit up in a chair, - Moved to medical floors - Another session of hemodialysis today Constipation, bowel regimen Full code Eliquis for DVT prophylaxis Plan for today continue IV antibiotics, moved out of ICU PDMP PDMP Reviewed: Not Reviewed Attestations 2 Medical Necessity Statement*: Patient requires hospitalization for acute hypoxic respiratory failure, deconditioning, diabetic foot infection Diagnoses Diabetic infection of right foot E11.628; L08.9 Type 2 diabetes mellitus E11.9 ESRD on dialysis N18.6; Z99.2 RLS (restless legs syndrome) G25.81 TARA (obstructive sleep apnea) G47.33 Missed dialysis
[2025-09-10] MEDS: polyethylene glycol 3350 Pkt 17 gm PO (19:53)
[2025-09-10] MEDS: cefepime 1,000 mg SDV 1000 MG IVP (19:53)
--- NOTE | 2025-09-10 19:53 | P.PN_ITS ---
Subjective 2 Subjective: no new c/o Medications: Reviewed: Yes Vitals/I&O/Wt Last Vital Signs Temp 97.2 F L 09/10/25 04:30 Pulse 64 09/10/25 18:30 Resp 21 H 09/10/25 18:30 BP 125/56 09/10/25 18:30 Pulse Ox 96 09/10/25 18:30 O2 Del Method Nasal Cannula 09/10/25 08:06 O2 Flow Rate 2 09/10/25 08:06 FiO2 35 09/09/25 12:02 09/10/25 09/10/25 09/10/25 06:59 14:59 22:59 Intake Total 480 / 1180 360 / 360 120 / 480 Balance 480 / -1820 360 / 360 120 / 480 Weight last 48 hrs Weight 118 kg Weight 117 kg Weight 125.872 kg Physical Exam 2 Narrative: awake , alert No JVD HEERLA S1S2 RRR per report Lungs clear Abd soft , non tender No edema no rash pSYCH - no anxiety Data 09/10/25 04:00 09/10/25 04:00 Micro: Microbiology 09/05/25 10:50 Gram Stain - Final Bone Tissue Culture - Final Pseudomonas aeruginosa 09/05/25 10:50 Gram Stain - Final Other Source Anaerobic Culture - Preliminary Wound Culture - Final Pseudomonas aeruginosa A&P Assessment and plan 1. End stage renal disease on dialysis: 1. ESRD : on TTS schedule , HD yesterday , 2. HTN : Resumed home meds 3. Anemia : Hb 8.5 , HIRO with HD 4. Right foot infection , cultures show pseudomonas and currently on cefepime 5. AMS , improved 6. acute resp failure , multifactorial , HD today Pt evaluated using audiovisual cart. Time spent 40 min PDMP PDMP Reviewed: Not Reviewed Attestations 2 Medical Necessity Statement*: PER [facility] Coding Level of Care Code Acute Code for Chg Fwd Diagnoses End stage renal disease on dialysis N18.6; Z99.2
[2025-09-10] MEDS: HYDROcodone-acetaminophen 7.5-325 mg Tablet 1 TAB PO (22:41)
[2025-09-11] VITALS (13 sets, daily range): BP systolic 122–174; BP diastolic 47–97; PULSE 49–91; RESP 16–26; TEMP 36.5–37; O2SAT 90–98
[2025-09-11] MEDS: morphine 4 mg/mL SDV 1 mL 2 MG IVP (01:20)
[2025-09-11 04:51] LABS: Hematocrit 28.9 % (36-47); Hemoglobin 8.60 g/dL (11.27-16.99); Mean Corpuscular HGB Conc 29.8 g/dL (30-55); Mean Corpuscular Hemoglobin 26.5 pg (27-33); Mean Corpuscular Volume 89.2 fl (85-98); Nucleated Red Blood Cells % 0 %; Platelet Count 126 10^3/cmm (157-399); Red Blood Count 3.24 10^6/uL (3.85-5.65); White Blood Count 6.17 10^3/uL (3.29-11.43)
[2025-09-11 05:23] LABS: Alanine Aminotransferase 75 U/L (0-33); Albumin Level 3.6 g/dL (3.5-5.2); Alkaline Phosphatase 274 U/L (35-105); Anion Gap 18.9 (5-19); Aspartate Amino Transferase 164 U/L (0-32); Blood Urea Nitrogen 41 mg/dL (8-23); Calcium 7.6 mg/dL (8.5-10.5); Carbon Dioxide 26 mmol/L (22-29); Chloride 99 mmol/L (98-107); Creatinine Clr Calc Pharmacy 12.5385; Globulin 2.9 g/dL (1.3-4.6); Glucose 96 mg/dL (65-115); Magnesium 2.2 mg/dL (1.7-2.3); Osmolality Calculated 298 mOsm/kg (285-295); Potassium 4.9 mmol/L (3.5-5.1); Sodium 139 mmol/L (136-145); Total Protein 6.5 g/dL (6.6-8.7)
[2025-09-11 05:25] LABS: NT Pro B Type Natriuretic Pept 10942 pg/mL (0-125); Procalcitonin 0.65 ng/mL (0-0.5)
[2025-09-11] MEDS: DEXAMETHASONE 0.1% 1 DROP XX ×3 (05:25→17:14)
[2025-09-11] MEDS: polyethylene glycol 3350 Pkt 17 gm PO ×2 (08:09→17:15)
--- NOTE | 2025-09-11 11:41 | P.PN_ITS ---
Subjective 2 Subjective: No new c/o Medications: Reviewed: Yes Vitals/I&O/Wt Last Vital Signs Temp 97.7 F 09/11/25 11:25 Pulse 52 L 09/11/25 11:25 Resp 18 09/11/25 11:25 BP 155/47 09/11/25 11:25 Pulse Ox 96 09/11/25 11:25 O2 Del Method Nasal Cannula 09/11/25 11:25 O2 Flow Rate 3 09/11/25 08:04 FiO2 35 09/09/25 12:02 09/10/25 09/11/25 09/11/25 22:59 06:59 14:59 Intake Total 600 / 960 240 / 240 Balance 600 / 960 240 / 240 Weight last 48 hrs Weight 118 kg Weight 117 kg Physical Exam 2 Narrative: awake , alert No JVD HEERLA S1S2 RRR per report Lungs clear Abd soft , non tender No edema no rash pSYCH - no anxiety Data 09/11/25 04:32 09/11/25 04:32 Micro: Microbiology 09/05/25 10:50 Gram Stain - Final Bone Tissue Culture - Final Pseudomonas aeruginosa 09/05/25 10:50 Gram Stain - Final Other Source Anaerobic Culture - Preliminary Wound Culture - Final Pseudomonas aeruginosa A&P Assessment and plan 1. End stage renal disease on dialysis: 1. ESRD : on TTS schedule , HD today 2. HTN : Resumed home meds 3. Anemia : Hb 8.5 , HIRO with HD 4. Right foot infection , cultures show pseudomonas and currently on cefepime 5. AMS , improved 6. acute resp failure , multifactorial , HD today Pt evaluated using audiovisual cart. Time spent 40 min PDMP PDMP Reviewed: Not Reviewed Attestations 2 Medical Necessity Statement*: per [facility] Coding Level of Care Code Acute Code for Chg Fwd Diagnoses End stage renal disease on dialysis N18.6; Z99.2
--- NOTE | 2025-09-11 11:59 | PC.OT ---
OT TREATMENT ATTEMPTED. PATIENT IS HAVING N/V. NURSING INFORMED
[2025-09-11] MEDS: ondansetron 2 mg/ML SDV 2 mL 4 MG IVP (12:08)
[2025-09-11] MEDS: HYDROcodone-acetaminophen 7.5-325 mg Tablet 1 TAB PO ×2 (12:18→17:14)
--- NOTE | 2025-09-11 12:47 | PC.NURSE ---
Pt to dialysis with KWAKU Calabrese at this time.
--- NOTE | 2025-09-11 14:58 | PC.OT ---
OT TREATMENT ATTEMPTED IN P.M. PATIENT OUT OF ROOM TO DIALYSIS. WILL ATTEMPT AGAIN TOMORROW.
[2025-09-11] MEDS: pantoprazole 40 mg SDV IVP (17:14)
--- NOTE | 2025-09-11 18:25 | P.PN_ITS ---
Subjective 2 Subjective: Patient was seen this morning, currently alert oriented x 3, following all commands, she feels better this morning, she has not had much of a bowel movement, no nausea, no vomiting Vitals/I&O/Wt Last Vital Signs Temp 98.6 F 09/11/25 17:18 Pulse 57 L 09/11/25 17:18 Resp 16 09/11/25 17:18 BP 123/48 09/11/25 17:18 Pulse Ox 94 09/11/25 15:58 O2 Del Method Nasal Cannula 09/11/25 15:58 O2 Flow Rate 3 09/11/25 08:04 FiO2 35 09/09/25 12:02 09/11/25 09/11/25 09/11/25 06:59 14:59 22:59 Intake Total 720 / 720 500 / 1220 Output Total 2665 / 2665 Balance 720 / 720 -2165 / -1445 Weight last 48 hrs Weight 119.1 kg Weight 118 kg Weight 117 kg Physical Exam 2 Const: COMMON NORMALS: no acute distress and patient oriented x3 Resp: COMMON NORMALS: normal respiratory effort, No retractions, No use of accessory muscles and clear to auscultation bilaterally AUSCULTATION: clear to auscultation bilaterally Cardio: COMMON NORMALS: regular rate, regular rhythm, S1 normal heart sound present and S2 normal heart sound present RATE: regular rate RHYTHM: r egular rhythm HEART SOUNDS: S1 normal heart sound present and S2 normal heart sound present GI: COMMON NORMALS: Normal to inspection, nondistended, normoactive bowel sounds present and non-tender Extremity: COMMON NORMALS: no pedal edema Neuro: COMMON NORMALS: patient oriented x3 Psych: COMMON NORMALS: mental status grossly normal Data 09/11/25 04:32 09/11/25 04:32 Micro: Microbiology 09/05/25 10:50 Gram Stain - Final Other Source Anaerobic Culture - Preliminary Wound Culture - Final Pseudomonas aeruginosa 09/05/25 10:50 Gram Stain - Final Bone Tissue Culture - Final Pseudomonas aeruginosa A&P Assessment and plan 1. Diabetic infection of right foot: 2. Type 2 diabetes mellitus: 3. ESRD on dialysis: 4. RLS (restless legs syndrome): 5. TARA (obstructive sleep apnea): 6. Missed dialysis: Plan: Right diabetic foot infection Plan MRI right foot - MR/MR foot RT wo con* [id number] IMPRESSION: 1. Small area of fatty bone marrow replacement involving the base of the residual fifth metatarsal at the cuboid articulation suspicious for osteomyelitis similar to previous. Small amount of fluid and edema in this area.. 2. No drainable fluid collection or abscess in the region of the plantar ulcerations described above. 3. Diffuse cellulitis - Status post right foot excisional debridement down to level of bone -Follow wound cultures, so far showing Pseudomonas Plan - IV cefepime - Infectious disease consulted Type 2 diabetes mellitus, low-dose sliding scale Pruritus, resolving Sacral decubitus ulcer, on examination stage I, measuring 1 x 1 cm, discussed continued repositioning, offloading, changing positions every 2 hours Acute hypoxic hypercarbic respiratory failure - With evidence of fluid overload -Status post emergent session of dialysis - Concern for possible pneumonia?, Antibiotic therapy expanded to vancomycin, meropenem - Will continue torsemide - Continue IV antibiotics - Will advise patient to sit up in a chair, - Moved to medical floors - Another session of hemodialysis today Constipation, bowel regimen Full code Eliquis for DVT prophylaxis Plan for today continue IV antibiotics, session of dialysis, bowel regimen, plan of discharge in the next 24 hours PDMP PDMP Reviewed: Not Reviewed Attestations 2 Medical Necessity Statement*: Patient requires hospitalization for respiratory failure, fluid overload Diagnoses Diabetic infection of right foot E11.628; L08.9 Type 2 diabetes mellitus E11.9 ESRD on dialysis N18.6; Z99.2 RLS (restless legs syndrome) G25.81 TARA (obstructive sleep apnea) G47.33 Missed dialysis
[2025-09-11] MEDS: cefepime 1,000 mg SDV 1000 MG IVP (19:40)
[2025-09-12] VITALS (17 sets, daily range): BP systolic 118–171; BP diastolic 43–71; PULSE 49–58; RESP 16–22; TEMP 34.8–37; O2SAT 90–98
[2025-09-12] MEDS: DEXAMETHASONE 0.1% 1 DROP XX ×4 (00:32→18:24)
[2025-09-12 05:16] LABS: Hematocrit 32.5 % (36-47); Hemoglobin 9.40 g/dL (11.27-16.99); Mean Corpuscular HGB Conc 28.9 g/dL (30-55); Mean Corpuscular Hemoglobin 26.9 pg (27-33); Mean Corpuscular Volume 92.9 fl (85-98); Nucleated Red Blood Cells % 0 %; Platelet Count 120 10^3/cmm (157-399); Red Blood Count 3.50 10^6/uL (3.85-5.65); White Blood Count 6.34 10^3/uL (3.29-11.43)
[2025-09-12 05:43] LABS: Alanine Aminotransferase 63 U/L (0-33); Albumin Level 3.8 g/dL (3.5-5.2); Alkaline Phosphatase 259 U/L (35-105); Anion Gap 16.9 (5-19); Aspartate Amino Transferase 46 U/L (0-32); Blood Urea Nitrogen 29 mg/dL (8-23); Calcium 7.9 mg/dL (8.5-10.5); Carbon Dioxide 26 mmol/L (22-29); Chloride 99 mmol/L (98-107); Creatinine Clr Calc Pharmacy 15.7501; Globulin 3.3 g/dL (1.3-4.6); Glucose 126 mg/dL (65-115); Magnesium 2.1 mg/dL (1.7-2.3); Osmolality Calculated 291 mOsm/kg (285-295); Potassium 4.9 mmol/L (3.5-5.1); Sodium 137 mmol/L (136-145); Total Protein 7.1 g/dL (6.6-8.7)
[2025-09-12 06:07] LABS: NT Pro B Type Natriuretic Pept 10678 pg/mL (0-125)
[2025-09-12] MEDS: polyethylene glycol 3350 Pkt 17 gm PO ×2 (06:21→18:23)
[2025-09-12 06:45] LABS: Procalcitonin 0.57 ng/mL (0-0.5)
--- NOTE | 2025-09-12 08:26 | P.PN_ITS ---
Subjective 2 Subjective: getting HD Medications: Reviewed: Yes Vitals/I&O/Wt Last Vital Signs Temp 98.2 F 09/12/25 13:56 Pulse 53 L 09/12/25 13:56 Resp 18 09/12/25 13:56 BP 141/48 09/12/25 13:56 Pulse Ox 96 09/12/25 12:28 O2 Del Method Nasal Cannula 09/12/25 12:28 O2 Flow Rate 2 09/12/25 10:58 FiO2 35 09/09/25 12:02 09/12/25 09/12/25 09/12/25 06:59 14:59 22:59 Intake Total 200 / 1720 840 / 840 Balance 200 / -995 840 / 840 Weight last 48 hrs Weight 118.983 kg Weight 119.1 kg Physical Exam 2 Narrative: awake , alert No JVD HEERLA S1S2 RRR per report Lungs clear Abd soft , non tender No edema no rash pSYCH - no anxiety Data 09/12/25 04:58 09/12/25 04:58 Micro: Microbiology 09/05/25 10:50 Gram Stain - Final Other Source Anaerobic Culture - Preliminary Wound Culture - Final Pseudomonas aeruginosa A&P Assessment and plan 1. End stage renal disease on dialysis: 1. ESRD : on MWF schedule , HD today 2. HTN : Resumed home meds 3. Anemia : Hb 8.5 , HIRO with HD 4. Right foot infection , cultures show pseudomonas and currently on cefepime 5. AMS , improved 6. acute resp failure , multifactorial , HD today Pt evaluated using audiovisual cart. Time spent 40 min PDMP PDMP Reviewed: Not Reviewed Attestations 2 Medical Necessity Statement*: per [facility] Coding Level of Care Code Acute Code for Chg Fwd Diagnoses End stage renal disease on dialysis N18.6; Z99.2
--- NOTE | 2025-09-12 08:50 | PC.SOCIAL ---
IMM Updated Updated pt on IMM. No questions voiced. Provided pt a copy. Initialed, dated, & timed copy in chart.
--- NOTE | 2025-09-12 10:49 | XR_ITS ---
WS: [id number] Portable AP upright chest, 09/12/2025 Clinical Data: desating Comparison: Portable chest, 09/10/2025 Findings: Bilateral patchy opacities extend into both lungs unchanged. No nodules or masses are seen. The heart is enlarged. There is a left dialysis tube which ends in the superior vena cava. The aortic arch shows calcification. No pneumothorax is seen. There is a posterior thoracolumbar fusion. XR/XR chest 1V portable [id number] Impression: 1. Bilateral patchy opacities which could represent atelectasis, pneumonia or p ulmonary vascular congestion. 2. Cardiomegaly and atherosclerosis unchanged.
--- NOTE | 2025-09-12 13:46 | PC.NURSE ---
notified Dr. Pink patient in dialysis with a BP of 141/48 and HR 53. Orders to hold Hydralazine 100mg.
--- NOTE | 2025-09-12 14:27 | PM.DCS ---
Discharge Providers Date of Admission: 09/03/25 15:11 Date of Discharge: September 12, 2025 Attending Provider at Admission: Ruben Pink MD Attending Provider at Discharge: Ruben Pink MD Primary Care Provider: Lexis Ring MD Diagnoses at Discharge Discharge Diagnosis 1. Diabetic infection of right foot: 2. Type 2 diabetes mellitus: 3. ESRD on dialysis: 4. RLS (restless legs syndrome): 5. TARA (obstructive sleep apnea): 6. Missed dialysis: Reason for Visit Reason for Visit: R Foot Ulcer Cellulitis Hospital Course Hospital Course Berenice Pierce is a 65 year old female with a past medical history of diabetic foot infections, type 2 diabetes mellitus, end-stage renal disease on dialysis, hypothyroidism, obstructive sleep apnea, hypertension, who presents to [facility] from podiatry clinic for concerns for right foot diabetic foot infection, patient reports that she has been having increased drainage from her right foot wound, subjective fevers, chills, Patient was admitted to [facility] for right diabetic foot infection MRI right foot - MR/MR foot RT wo con* [id number] IMPRESSION: 1. Small area of fatty bone marrow replacement involving the base of the residual fifth metatarsal at the cuboid articulation suspicious for osteomyelitis similar to previous. Small amount of fluid and edema in this area.. 2. No drainable fluid collection or abscess in the region of the plantar ulcerations described above. 3. Diffuse cellulitis - Status post right foot excisional debridement down to level of bone -Follow wound cultures, so far showing Pseudomonas - Bone cultures showing no evidence of osteomyelitis - Patient will be discharged with cefepime 2 g IV Monday after dialysis - [facility] facility - Follow-up with infectious disease at [facility] - Wound care For sacral decubitus ulcer stage I, continue repositioning, offloading Patient's hospitalization was complicated by acute hypoxic hypercarbic respiratory failure - With evidence of fluid overload - She did require ICU admission, BiPAP - She was dialyzed 10 L negative - Shortness of breath has improved, moved out of the ICU, remains afebrile, on 2 L at discharge, - There is also concerns for pneumonia, she was managed with IV antibiotics, discharged on cefepime - Received steroids, completed steroids as inpatient - Will continue to follow-up with hemodialysis outpatient - Fluid restrictions Physical Exam Const: COMMON NORMALS: no acute distress and patient oriented x3 Resp: COMMON NORMALS: normal respiratory effort, No retractions, No use of accessory muscles and clear to auscultation bilaterally AUSCULTATION: clear to auscultation bilaterally Cardio: COMMON NORMALS: regular rate, regular rhythm, S1 normal heart sound present and S2 normal heart sound present RATE: regular rate RHYTHM: regular rhythm HEART SOUNDS: S1 normal heart sound present and S2 normal heart sound present GI: COMMON NORMALS: Normal to inspection, nondistended, normoactive bowel sounds present and non-tender Extremity: COMMON NORMALS: no pedal edema Neuro: COMMON NORMALS: patient oriented x3 Psych: COMMON NORMALS: mental status grossly normal Discharge Data Studies Completed and Pending Completed Studies During Hospitalization Category Date Time Status CT chest wo con [id number] Routine Cat Scan 09/10/25 08:[address] head wo con* [id number] Routine Cat Scan 09/06/25 10:41 Completed XR KUB portable [id number] Routine Exams 09/09/25 16:44 Completed XR chest 1V portable [id number] Routine Exams 09/07/25 13:59 Completed XR chest 1V portable [id number] Routine Exams 09/10/25 07:00 Completed XR chest 1V portable [id number] Routine Exams 09/12/25 10:49 Completed XR chest 1V portable [id number] Stat Exams 09/09/25 08:48 Completed MR foot RT wo con* [id number] Routine MRI 09/04/25 08:00 Completed Pathology: Surgical [PTH] Routine Pth 09/05/25 11:06 [place] [id number] Routine Ultrasound 09/09/25 16:44 Completed Pending at discharge Category Date Time Status Anaerobic Culture Routine Lab 09/05/25 10:50 Results Wound Culture and Gram Stain Routine Lab 09/05/25 10:50 Results Radiology Impressions Foot MRI 09/04/25 08:00 IMPRESSION: 1. Small area of fatty bone marrow replacement involving the base of the residual fifth metatarsal at the cuboid articulation suspicious for osteomyelitis similar to previous. Small amount of fluid and edema in this area.. 2. No drainable fluid collection or abscess in the region of the plantar ulcerations described above. 3. Diffuse cellulitis Head CT 09/06/25 10:41 IMPRESSION: No acute intracranial process. KUB X-Ray 09/09/25 16:44 IMPRESSION: 1. No evidence of intestinal obstruction or perforation radiographically. 2. Large fecal load in the colon. Venous Duplex 09/09/25 16:44 IMPRESSION: 1. No evidence of deep vein thrombosis or superficial vein thrombosis in the visualized veins of the lower extremities bilaterally. 2. Calf veins not well visualized due to body habitus and ankle bandaging. Chest CT 09/10/25 08:00 IMPRESSION: 1. Findings most suggestive of fluid overload/CHF with small posterior pleural effusions bilaterally likely component of patchy edema. Subjacent atelectasis with pleural effusions in the lung bases, with inability to exclude infiltrate versus prominent edema with atelectasis in the lung bases, particularly on the right. 2. Left-sided dialysis catheter with tip in the SVC. 3. Postsurgical posterior fusion hardware T8 through T11. Chest X-Ray 09/12/25 10:49 Impression: 1. Bilateral patchy opacities which could represent atelectasis, pneumonia or pulmonary vascular congestion. 2. Cardiomegaly and atherosclerosis unchanged. Laboratory Results WBC 6.34 10^3/uL (3.29-11.43) 09/12/25 04:58 RBC 3.50 10^6/uL (3.85-5.65) L 09/12/25 04:58 Hgb 9.40 g/dL (11.27-16.99) L 09/12/25 04:58 Hct 32.5 % (36-47) L 09/12/25 04:58 MCV 92.9 fl (85-98) 09/12/25 04:58 MCH 26.9 pg (27-33) L 09/12/25 04:58 MCHC 28.9 g/dL (30-55) L 09/12/25 04:58 RDW 15.9 % (12.1-15.1) H 09/12/25 04:58 Plt Count 120 10^3/cmm (157-399) L 09/12/25 04:58 MPV 10.8 fL (7.4-10.4) H 09/12/25 04:58 Neut % (Auto) 77.7 % 09/12/25 04:58 Lymph % (Auto) 12.3 % 09/12/25 04:58 [place] % (Auto) 5.4 % 09/12/25 04:58 Eos % (Auto) 3.5 % 09/12/25 04:58 Baso % (Auto) 0.8 % 09/12/25 04:58 Neut # (Auto) 4.93 10^3/uL (1.8-7.7) 09/12/25 04:58 Lymph # (Auto) 0.8 10^3/uL (0.8-4.8) 09/12/25 04:58 [place] # (Auto) 0.3 10^3/uL (0.2-0.9) 09/12/25 04:58 Eos # (Auto) 0.2 10^3/uL (0.0-0.8) 09/12/25 04:58 Baso # (Auto) 0.1 10^3/uL (0.0-0.1) 09/12/25 04:58 Nucleated RBC % (auto) 0 % 09/12/25 04:58 Nucleated RBCs # 0.0 /100WBC 09/12/25 04:58 ESR 43 mm/hr (0-15) H 09/03/25 17:39 PT 14.30 SECONDS (12.1-14.9) 09/03/25 17:39 INR 1.04 (0.8-1.2) 09/03/25 17:39 APTT 30.9 SECONDS (23.9-36.7) 09/03/25 17:39 Specimen Type Mixedvenous 09/09/25 10:49 Sample Site Radial, left 09/09/25 10:49 ABG pH 7.28 (7.35-7.45) L 09/09/25 10:49 ABG pCO2 63.2 mmHg (35-45) H* 09/09/25 10:49 ABG pO2 40.2 mmHg (80.0-100.0) L 09/09/25 10:49 ABG PO2/FiO2 Ratio 111 09/09/25 10:49 ABG HCO3 29.4 mmol/L (22-26) H 09/09/25 10:49 ABG Base Excess 1.6 mmol/L (-2.0-2.0) 09/09/25 10:49 Seun Test Pos 09/09/25 10:49 Hematocrit 29.7 % (37-47) L 09/09/25 10:49 O2 Delivery Device Nc 09/09/25 10:49 O2 Liters/Min 4.0 % 09/09/25 10:49 FiO2 36.0 % 09/09/25 10:49 Brine Tank Operator ID Amh 09/09/25 10:49 Sodium 137 mmol/L (136-145) 09/12/25 04:58 Potassium 4.9 mmol/L (3.5-5.1) 09/12/25 04:58 Chloride 99 mmol/L (98-107) 09/12/25 04:58 Carbon Dioxide 26 mmol/L (22-29) 09/12/25 04:58 Anion Gap 16.9 (5-19) 09/12/25 04:58 BUN 29 mg/dL (8-23) H 09/12/25 04:58 Creatinine 4.4 mg/dL (0.5-0.9) H 09/12/25 04:58 GFR Calculation 10.0 mL/min (90-130) L 09/12/25 04:58 Glucose 126 mg/dL (65-115) H 09/12/25 04:58 POC Glucose 114 mg/dL (70-110) H 09/12/25 11:27 Estimat Average Glucose 120 09/03/25 17:39 Hemoglobin A1c 5.8 % (4.0-6.0) 09/03/25 17:39 Calculated Osmolality 291 mOsm/kg (285-295) 09/12/25 04:58 Lactic Acid 1.3 mmol/L (0.5-2.2) 09/03/25 17:39 Calcium 7.9 mg/dL (8.5-10.5) L 09/12/25 04:58 Phosphorus 4.9 mg/dL (2.5-4.5) H 09/12/25 04:58 Magnesium 2.1 mg/dL (1.7-2.3) 09/12/25 04:58 Total Bilirubin 0.3 mg/dL (0.15-1.2) 09/12/25 04:58 AST 46 U/L (0-32) H 09/12/25 04:58 ALT 63 U/L (0-33) H 09/12/25 04:58 Alkaline Phosphatase 259 U/L (35-105) H 09/12/25 04:58 Troponin T Baseline 75 ng/L (0-10) H 09/09/25 12:06 Troponin T 120 Minute 73.92 ng/L (0-10) H 09/09/25 14:07 Delta Troponin T -1.08 ABS# (0-10) L 09/09/25 14:07 Troponin T Hi Sens 6Hr 71.52 ng/L (0-10) H 09/09/25 18:18 Troponin T Hi Sens 6Hr Delta -3.48 ng/L (0-12) L 09/09/25 18:18 C-Reactive Protein 9.3 mg/L (0.0-4.9) H 09/12/25 04:58 NT-Pro-B Natriuret Pep 28743 pg/mL (0-125) H 09/12/25 04:58 Total Protein 7.1 g/dL (6.6-8.7) 09/12/25 04:58 Albumin 3.8 g/dL (3.5-5.2) 09/12/25 04:58 Globulin 3.3 g/dL (1.3-4.6) 09/12/25 04:58 Triglycerides 77 mg/dL (0-150) 09/03/25 17:39 Cholesterol 121 mg/dL (0-200) 09/03/25 17:39 LDL Cholesterol, Calc 53 mg/dL (50-129) 09/03/25 17:39 HDL Cholesterol 53 mg/dL (60-100) L 09/03/25 17:39 LDL/HDL Ratio 1.00 RATIO (0.00-3.22) 09/03/25 17:39 Cholesterol/HDL Ratio 2.28 mg/dL (0.0-4.40) 09/03/25 17:39 Procalcitonin 0.57 ng/mL (0-0.5) H 09/12/25 04:58 TSH 4.89 uIU/mL (0.27-4.20) H 09/03/25 17:39 Urine Color Yellow (Yellow) 09/04/25 04:50 Urine Appearance Clear (CLEAR) 09/04/25 04:50 Urine pH 7.5 (5-7) 09/04/25 04:50 Ur Specific [place] 1.018 (1.005-1.030) 09/04/25 04:50 Urine Protein 3+ (Negative) A 09/04/25 04:50 Urine Glucose (UA) 1+ (Normal) H 09/04/25 04:50 Urine Ketones Negative (Negative) 09/04/25 04:50 Urine Blood Negative (Negative) 09/04/25 04:50 Urine Nitrate Negative (Negative) 09/04/25 04:50 Urine Bilirubin Negative (Negative) 09/04/25 04:50 Urine Urobilinogen 0.2 mg/dL (Negative) 09/04/25 04:50 Ur Leukocyte Esterase Trace (Negative) A 09/04/25 04:50 Urine RBC 0-2 /hpf (0-2) 09/04/25 04:50 Urine WBC 11-20 /hpf (0-5) H 09/04/25 04:50 Ur Squamous Epith Cells 6-10 /hpf (0-5) 09/04/25 04:50 Amorphous Sediment Not Reportable 09/04/25 04:50 Urine Bacteria Trace /hpf (NONE) 09/04/25 04:50 Hyaline Casts 3.30 /lpf 09/04/25 04:50 Nasal MRSA (PCR) Not detected (Not Detecte) 09/03/25 18:54 Random Vancomycin 13.6 ug/mL (20.0-40.0) L 09/06/25 03:07 Vitals Last Vital Signs Temp 98.2 F 09/12/25 13:56 Pulse 53 L 09/12/25 13:56 Resp 18 09/12/25 13:56 BP 141/48 09/12/25 13:56 Pulse Ox 96 09/12/25 12:28 O2 Del Method Nasal Cannula 09/12/25 12:28 O2 Flow Rate 2 09/12/25 10:58 FiO2 35 09/09/25 12:02 Discharge Plan Discharge Patient Disposition: Xfer SNF Condition: Stable Prescriptions: New cefepime 1 gram Recon Soln 2 g IVP .mwf after dialysis 35 Days Qty: 10 0RF citalopram 20 mg Tablet 20 mg PO DAILY 30 Days Qty: 30 0RF amlodipine 10 mg Tablet 10 mg PO DAILY 30 Days Qty: 30 0RF insulin lispro [Humalog U-100 Insulin] 100 unit/mL Solution See Rx Instructions .ROUTE .COMPLEX Qty: 10 0RF Rx Instructions: Inject, subcut, 3 times daily, after meals, based on low-dose sliding scale polyethylene glycol 3350 17 gram Powder In Packet 17 g PO DAILY PRN (Reason: constipation) 30 Days Qty: 30 0RF Continued albuterol sulfate 2.5 mg /3 mL (0.083 %) solution for nebulization 2.5 mg inhalation Q6H ropinirole 0.25 mg tablet 0.25 mg PO TID hydrocodone-acetaminophen 7.5-325 mg tablet 1 - 2 tab PO .Q4-6H [place] Caps 1 mg capsule 1 cap PO DAILY calcitriol 0.25 mcg capsule 0.25 mcg PO DAILY Rx Instructions: take with 0.5mcg levothyroxine 112 mcg tablet 112 mcg PO DAILY metoprolol tartrate 25 mg tablet 25 mg PO BID budesonide 0.5 mg/2 mL Suspension For Nebulization 0.5 mg inhalation BID.RESPIRATORY Qty: 100 0RF tizanidine 4 mg tablet 4 mg PO Q8H torsemide 100 mg tablet 100 mg PO DAILY hydralazine 100 mg tablet 100 mg PO TID amiodarone [Pacerone] 200 mg Tablet 200 mg PO DAILY Qty: 30 0RF sevelamer carbonate 800 mg Tablet 800 mg PO TID Qty: 90 0RF Eliquis 5 mg Tablet 5 mg PO BID@0900,2100 Qty: 60 0RF albuterol sulfate 90 mcg/actuation HFA aerosol inhaler 2 puff INHALATION Q6H PRN (Reason: Shortness Of Breath Or Wheezing) Changed insulin glargine U-300 conc [Toujeo Max U-300 SoloStar] 300 unit/mL (3 mL) insulin pen 5 unit SUBCUT BEDTIME Qty: 1 0RF Referrals: [facility] [Outside] [facility] [Outside] Félix Morataya DPM [Physician, Podiatry] - 09/16/25 2:25 pm Tye Padgett [Referring, Unknown] - 1 week Referral Note: infectious disease Discharge Activity: Resume usual activity Patient Instructions: Acute Wound Care (DC), Opioid Safety, Post Anesthesia Care, Patient Portal & Uzma Instructions Activity Restrictions/Additional Instructions: PODIATRY DISCHARGE INSTRUCTIONS--DR. MORATAYA -Dressing changes: Daily dressing change Hydrofera Blue, dry sterile dressing -Follow up: Patient wishes to follow-up with wound care at [facility] wound care clinic -Weightbearing status: Nonweightbearing to right foot -Antibiotics: Per ID -Please contact podiatry clinic at [phone] with any questions regarding patient's discharge -Please monitor your blood sugars closely -Monitor your blood sugars 3 times daily as after meals -Please record your blood sugars, and a blood sugar log -For your NovoLog -Please inject blood sugar after meals based on sliding scale provided -Do not inject insulin if you do not eat as hypoglycemia kills -This is a NovoLog sliding scale -Insulin sliding ?fingerstick? Insulin ?141-180?0 units/sq 181-220?2 units/sq ?221-260?4 units/sq ?261-300 6 units/sq ?301-350?8 units/sq ?351-400 10 units/sq ?401-450?12 units/sq >450? 14units/sq -If your blood sugar is greater than 500 go to the emergency room -If your blood sugar is less than 60 or at anytime you feel lightheaded or dizzy or diaphoretic or have chest palpitations check your blood sugar, and eat a hard candy or drink orange juice and go immediately to the emergency room -Remember hypoglycemia kills, so if his blood sugar is less than 60 we have to increase it by taking in a sugary meal such as a hard candy or orange juice and go to the emergency room -If you have any questions please call us where here to help - Fluid restrictions 1200 mL - Follow-up with podiatry - Follow-up with infectious disease Dr. Padgett Discharge Attestations Time Spent in Discharge Care*: greater than 30 min Status at Discharge: Cognitive status at discharge: cognitively intact, Behavioral status at discharge: cooperative, Quality Metrics Clinical Quality Measures [ No reported AMI, CVA or VTE this stay] Coding Level of Care Code 57926 Total time (in minutes) for Discharge: 45 Diagnoses Diabetic infection of right foot E11.628; L08.9 Type 2 diabetes mellitus E11.9 ESRD on dialysis N18.6; Z99.2 RLS (restless legs syndrome) G25.81 TARA (obstructive sleep apnea) G47.33 Missed dialysis
--- NOTE | 2025-09-12 15:35 | PC.OT ---
Pt. at dialysis. D/C following return from dialysis.
[2025-09-12] MEDS: pantoprazole 40 mg SDV IVP (18:24)
--- NOTE | 2025-09-12 19:23 | PC.NURSE ---
Called report to Desire Finley LPN
== END 2025-09-12 21:08 | disposition skilled nursing facility (03) | DRG 628 ==
LOC: MEDSURG 09-09 07:47 → ICU 09-09 12:57 → MEDSURG 09-11 02:13
PROVIDERS: Podiatrist Foot & Ankle Surgery; Admitting Provider Family Medicine; PCP Family Medicine; Visit Provider Family Medicine
PROC: 0QBN0ZZ Excision of Right Metatarsal, Open Approach (ICD-10-PCS; principal; 2025-09-05 10:15)
DX: E11.621 Type 2 diabetes mellitus with foot ulcer (principal); J18.9 Pneumonia, unspecified organism; J96.02 Acute respiratory failure with hypercapnia; J96.01 Acute respiratory failure with hypoxia; N18.6 End stage renal disease; I13.2 Hypertensive heart and chronic kidney disease with heart failure and with stage 5 chronic kidney disease, or end stage renal disease; I50.30 Unspecified diastolic (congestive) heart failure; L03.115 Cellulitis of right lower limb; E11.22 Type 2 diabetes mellitus with diabetic chronic kidney disease; L97.512 Non-pressure chronic ulcer of other part of right foot with fat layer exposed; E11.628 Type 2 diabetes mellitus with other skin complications; Z99.2 Dependence on renal dialysis; Z79.4 Long term (current) use of insulin; G25.81 Restless legs syndrome; G47.33 Obstructive sleep apnea (adult) (pediatric); B96.5 Pseudomonas (aeruginosa) (mallei) (pseudomallei) as the cause of diseases classified elsewhere; L89.151 Pressure ulcer of sacral region, stage 1; E03.9 Hypothyroidism, unspecified; D64.9 Anemia, unspecified; L29.9 Pruritus, unspecified; K59.00 Constipation, unspecified; Z79.01 Long term (current) use of anticoagulants; Z89.421 Acquired absence of other right toe(s)
CPT/HCPCS: 36415; 36416; 36600; 70450; 71045; 71250; 73718; 74018; 80048; 80053; 80061; 80202; 81001; 82803; 82962; 83036; 83605; 83735; 83880; 84100; 84145; 84443; 84484; 85025; 85610; 85651; 85730; 86140; 87040; 87070; 87075; 87077; 87086; 87176; 87186; 87205; 88307; 88311; 90935; 93005; 93970; 94640; 94660; 94664; 96372; 97162; 97167; 97530; 99214; G0379; J0612; J0692; J1200; J1644; J1815; J1938; J2060; J2185; J2270; J2405; J2470; J2704; J2765; J2919; J3373; J3490; J7030; J7050; J7611; J9999; P9047; Q3014; Q5105

== ENCOUNTER → 2025-09-16 14:20 | Outpatient (BNVA) | payer MEDICARE, SELFPAY | PROVIDERS: PCP Family Medicine; Visit Provider Podiatrist Foot & Ankle Surgery | DX: E11.621 Type 2 diabetes mellitus with foot ulcer (principal); L97.513 Non-pressure chronic ulcer of other part of right foot with necrosis of muscle; L97.413 Non-pressure chronic ulcer of right heel and midfoot with necrosis of muscle; L97.512 Non-pressure chronic ulcer of other part of right foot with fat layer exposed; N18.6 End stage renal disease; Z99.2 Dependence on renal dialysis; Z79.4 Long term (current) use of insulin | CPT/HCPCS: 11043 ==

== ENCOUNTER 2025-09-30 20:51 | Emergency (ER) | payer MEDICARE, SELFPAY ==
[2025-09-30 20:53] VITALS: BP 139/39; PULSE 55; RESP 20; TEMP 36.5; O2SAT 92; BMI 44.6
[2025-09-30 21:02] VITALS: PULSE 54; O2SAT 91
--- NOTE | 2025-09-30 21:06 | XRR_ITS ---
PROCEDURE INFORMATION: Exam: XR Chest Exam date and time: 09/30/2025 9:12 PM Age: 65 years old Clinical indication: Shortness of breath; Prior surgery; Surgery date: 6+ months; Surgery type: Dialysis cath; Additional info: Weak/hypoxia at home TECHNIQUE: Imaging protocol: Radiologic exam of the chest. Views: 1 view. COMPARISON: CR XR chest 1V portable [id number] 09/12/2025 1:08 PM FINDINGS: Tubes, catheters and devices: Left internal jugular catheter with the tip projecting over the superior vena cava. Lungs: Bilateral lower lobe atelectasis. Pleural spaces: No definite pleural effusion. No pneumothorax. Heart/Mediastinum: Cardiomegaly. Vasculature: Aortic calcification. Bones/joints: Lower thoracic posterior fusion. XR/XR chest 1V portable [id number] IMPRESSION: 1. Bilateral lower lobe atelectasis. 2. Cardiomegaly.
--- OUTSIDE RECORDS SUMMARY | 2025-09-30 21:19 | XMS_ITS | Encounter Summary ---
Author Organization [employer] Address 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
--- OUTSIDE RECORDS SUMMARY | 2025-09-30 21:19 | XMS_ITS | Clinical Summary ---
Author Organization [facility] Building Address [address] [place] [phone] Phone Care Team Providers Care Dry Cleaning Checker Name Role Phone Art Rios MD Primary Care Provider [phone] Allergies Active Allergy Reactions Criticality Noted Date [...] on file Legal Sex Female 12:57 PM HARNESS BRUSHER Gender Identity Not on file Sexual Orientation Not on file Last Filed Vital Signs Vital Sign Reading Time Taken Comments Blood Pressure 162/95 01/05/2020 9:26 AM HARNESS BRUSHER Pulse - - Temperature 35.9 C (96.7 F) 01/05/2020 9:26 AM HARNESS BRUSHER Respiratory Rate 18 01/05/2020 9:26 AM HARNESS BRUSHER Oxygen Saturation 96% 01/05/2020 9:26 AM HARNESS BRUSHER Inhaled Oxygen Concentration - - Weight 143 kg (315 lb 3.2 oz) 01/05/2020 6:47 AM HARNESS BRUSHER Height 162.6 cm (5' 4 ) 01/05/2020 6:47 AM HARNESS BRUSHER Body Mass Index 54.1 01/05/2020 6:47 AM HARNESS BRUSHER Plan of Treatment Health Maintenance Due Date [...] 75+ series) 2033 Insurance C[employer] [facility] MD [place]HMAEL [id number] [facility] DUAL COMPLETE [facility] PPO D-SNP Care Teams Dry Cleaning Checker Relationship Specialty Start Date End Date Art Rios MD [address] [place] [address] PCP - General Family Practice 04/07/13
--- OUTSIDE RECORDS SUMMARY | 2025-09-30 21:19 | XMS_ITS | Clinical Summary ---
Author Organization [facility] Address [address] [facility] Attn: Epic Prelude ADT STEPHEN YATES [address] Care Team Providers Care Shirt Creaser Name Role Phone Art Rios MD Primary Care Provider [phone] Allergies Active Allergy Reactions Criticality Noted Date Comments Bumetanide Rash Low 05/12/2025 Diphenhydramine Hallucination,Deliri u m High 05/12/2025 Levofloxacin Rash Low 01/05/2020 Nsaids (Non-Steroidal Anti-Inflammatory Drug) Renal Dysfunctions Medium 01/05/2020 Piperacillin-Tazobactam Anaphylaxis,Itching High Sulfa (Sulfonamide Antibiotics) Unknown 05/12/2025 Sulfamethoxazole-Trimeth oprim Itching,Rash Low 05/12/2025 cant take because of kidneys Medications No known medications Encounters Date Type Department Care Team Description 09/23/2025 External Device Data ST[facility] ABSTRACTION Provider, Abstract 09/16/2025 External Device Data [facility] ABSTRACTION Provider, Abstract 09/16/2025 External Device Data [facility] ABSTRACTION Provider, Abstract 08/26/2025 External Device Data [facility] ABSTRACTION Provider, Abstract 08/24/2025 7:50 AM CDT - 08/24/2025 11:59 PM CDT Hospital Encounter [facility] Emergency Medical Services [place] [address] [place] [address] Ambulance, [facility] Discharge Disposition: Short term [facility] 08/12/2025 External Device Data STL ABSTRACTION Provider, [...] on file Legal 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 Gender Identity Not on file Sexual [...] 05/12/2025 12:39 PM CDT Plan of Treatment Upcoming Encounters Date Type Department Care Team (Late st Contact Info) Description 10/02/2025 1:30 PM 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 Appointment [facility] Wound [address] [address] Health Maintenance Due Date Last Done Comments [...] VACCINE (60+ or ) (1 - Risk 50-74 years 1-dose series) 2008 ZOSTER VACCINE (2 of 3) 01/20/2023 11/25/2022, 09/22 OSTEOPOROSIS SCREENING 2023 PNEUMOCOCCAL VACCINE 50+ YEA RS (3 of 3 - PCV20 or PCV21) 01/28/2025 01/29/2020, 11/09/2012 INFLUENZA VACCINE (#1) 2025 , 11/07/2022, 11/28/2019, Additional history exists COVID-19 Vaccine (4 - 2023-2 5 season) 2025 08/12/2024, 02/25/2021, 02/04/2021 DIABETES HBA1C Q 6 MONTHS 12/31/2025 06/30/[address] [place] [id number] [facility] [id number] MEDICAID [place] Care Teams Shirt Creaser Relationship Specialty Start Date End Date Art Rios MD [address] [place] [address] PCP - General Family Practice 04/07/13
[2025-09-30 21:32] VITALS: BP 129/36; PULSE 53; O2SAT 94
[2025-09-30 21:35] LABS: Hematocrit 28.4 % (36-47); Hemoglobin 8.50 g/dL (11.27-16.99); Mean Corpuscular HGB Conc 29.9 g/dL (30-55); Mean Corpuscular Hemoglobin 27.8 pg (27-33); Mean Corpuscular Volume 92.8 fl (85-98); Nucleated Red Blood Cells % 0 %; Platelet Count 103 10^3/cmm (157-399); Red Blood Count 3.06 10^6/uL (3.85-5.65); White Blood Count 6.28 10^3/uL (3.29-11.43)
--- NOTE | 2025-09-30 21:52 | W.ED.WEAKNES ---
HPI - Weakness General: Chief complaint: Weakness Stated complaint: low bp Time Seen by Provider: 09/30/25 20:52 History of Present Illness: 65yo F w/pmhx of ESRD on HD, last HD completed yesterday, COPD on 2L at baseline, DM and diabetic foot infections, hypothyroidism HTN w/cc of of feeling unwell, low BP reading in rehab facility w/cc of discomfort w/urination, decreased urination and urgency. She also states she's felt a bit more short of breath and has been coughing up green/yellow sputum, an increase from baseline. Patient is at baseline SpO2 and is comfortable on 2 L per nasal cannula. She has not had a fever but is complaining of feeling cold. Patient is not experiencing chest pain today. She denies abdominal pain, nausea, vomiting or back pain. Patient states it feels similar to previous urinary tract infections. She states that she completed hemodialysis yesterday. She states she makes a little bit of urine. She has not fallen or injured herself. She states the alf measured a low reading which concerned them but does not know how low. She's been drinking a little less than usual though she's eaten dinner. Related Data Home Medications ?Medication ?Instructions ?Recorded ?Confirmed albuterol sulfate 2.5 mg/3 mL 2.5 mg inhalation Q6H 12/25/24 09/16/25 (0.083 %) solution for nebulization calcitriol 0.25 mcg capsule 0.25 mcg PO DAILY 12/25/24 09/16/25 hydrocodone 7.5 mg-acetaminophen 1 - 2 tab PO .Q4-6H 12/25/24 09/16/25 325 mg tablet levothyroxine 112 mcg tablet 112 mcg PO DAILY 12/25/24 09/16/25 metoprolol tartrate 25 mg tablet 25 mg PO BID 12/25/24 09/16/25 ropinirole 0.25 mg tablet 0.25 mg PO TID 12/25/24 09/16/25 vitamin B complex and vitamin C 1 cap PO DAILY 12/25/24 09/16/25 no.20-folic acid 1 mg capsule ([place] Caps) hydralazine 100 mg tablet 100 mg PO TID 08/25/25 09/16/25 tizanidine 4 mg tablet 4 mg PO Q8H 08/25/25 09/16/25 torsemide 100 mg tablet 100 mg PO DAILY 08/25/25 09/16/25 albuterol sulfate 90 mcg/actuation 2 puff inhalation Q6H PRN 09/04/25 09/16/25 aerosol inhaler Shortness Of Breath Or Wheezing Previous Rx's ?Medication ?Instructions ?Recorded budesonide 0.5 mg/2 mL suspension 0.5 mg (2 mL) inhalation 01/02/25 for nebulization BID.RESPIRATORY #100 mL amiodarone 200 mg tablet (Pacerone) 200 mg PO DAILY #30 tabs 08/27/25 apixaban 5 mg tablet (Eliquis) 5 mg PO BID@0900,2100 #60 tabs 08/27/25 sevelamer carbonate 800 mg tablet 800 mg PO TID #90 tabs 08/27/25 amlodipine 10 mg tablet 10 mg PO DAILY 30 days #30 tabs 09/12/25 cefepime 1 gram solution for 2 g IVP .mwf after dialysis 5 09/12/25 injection weeks #10 ea citalopram 20 mg tablet 20 mg PO DAILY 30 days #30 tabs 09/12/25 insulin glargine U-300 conc 300 5 unit (0.0167 mL) SUBCUT BEDTIME 09/12/25 unit/mL (3 mL) subcutaneous pen #1 mL (Toujeo Max U-300 SoloStar) insulin lispro 100 unit/mL See Rx Instructions .Route 09/12/25 subcutaneous solution (Humalog .COMPLEX #10 mL U-100 Insulin) polyethylene glycol 3350 17 gram 17 g PO DAILY PRN constipation 30 09/12/25 oral powder packet days #30 ea doxycycline hyclate 100 mg capsule 100 mg PO BID #10 caps 09/30/25 nitrofurantoin 100 mg PO BID 5 days #10 caps 09/30/25 monohydrate/macrocrystals 100 mg capsule (Macrobid) Allergies Allergy/AdvReac Type Severity Reaction Status Date / Time bumetanide Allergy Unknown Unknown Verified 09/16/25 14:29 sulfamethoxazole (From Allergy Unknown Unknown Verified 09/16/25 14:29 Bactrim) trimethoprim (From Bactrim) Allergy Unknown Unknown Verified 09/16/25 14:29 ceftriaxone Allergy ALGY-Difficulty Verified 09/16/25 14:29 Breathing levofloxacin (From Levaquin) Allergy ADR-Itching Verified 09/16/25 14:29 NSAIDS (Non-Steroidal Allergy Unknown Verified 09/16/25 14:29 Anti-Inflamma PFSH ED PFSH: Medical History (Updated 09/30/25 @ 23:58 by Mine Ahumada MD) Missed dialysis Chronic osteomyelitis Infection of hemodialysis catheter ESRD on dialysis Chronic ulcer of right foot Poor intravenous access Elevated troponin Respiratory syncytial virus Uremia Headache long term acute care registered nurse (current) use of opiate analgesic Pain management contract signed Lumbar stenosis with neurogenic claudication Seizure PRES (posterior reversible encephalopathy syndrome) RLS (restless legs syndrome) TARA (obstructive sleep apnea) Chronic antibiotic suppression Staphylococcus epidermidis bacteremia Diastolic heart failure H/O staphylococcal septicemia Hyperglycemia Cellulitis Thyroid disease Chronic back pain HTN (hypertension) Obesity Surgical History 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 H/O: hysterectomy Arteriovenous fistula History of tonsillectomy History of cholecystectomy History of back surgery History of appendectomy History of adenoidectomy Family History Other Cancer Social History Smoking and tobacco/nicotine status: current every day tobacco/nicotine user Alcohol intake: never Substance/Drug Use: never Lives independently: Yes Household members: spouse Housing: House Marital status: Physical Exam Narrative: EXAM NARRATIVE: Vital signs were reviewed. Patient is alert and oriented. Patient is breathing comfortably, no increased WOB or accessory muscle use on home 2L of NC. SpO2 is above 90% on RA. Patient has rhonchi/crackles in the right lower lobe and middle lobe but otherwise has clear lungs. No hypotension or tachycardia. Abdomen is soft, nondistended and nontender. No pain w/percussion of the flanks. Patient is moving all extremities, no deformity or gross injury. No lower extremity asymmetry. L chest HD catheter does not have any surrounding erythema and does not appear infected. Course Vital Signs: Vital signs: Vital Signs Temperature 97.7 F 09/30/25 20:53 Pulse Rate 58 L 10/01/25 00:07 Respiratory Rate 18 10/01/25 00:07 Blood Pressure 136/38 10/01/25 00:07 Pulse Oximetry 93 10/01/25 00:07 Oxygen Delivery Me thod Nasal Cannula 09/30/25 22:30 Oxygen Flow Rate 2 09/30/25 22:30 MDM - Weakness Medical Decision Making 65-year-old female presents with a chief complaint of feeling unwell, increased production of yellow/green sputum and cough, discomfort with urination, increased urinary urgency and a low blood pressure reading in the alf. She does not know how low the blood pressure was but she thinks it was in the 120s systolic. Patient has not had a fever but she feels cold. Differential diagnosis includes, is limited to, viral upper respiratory infection, pneumonia, bronchitis, COPD exacerbation, CHF, ACS, urinary tract infection, pyelonephritis, other. On exam, patient is hemodynamically stable and there is no hypotension noted during her stay in the emergency department. One reading showed low BP but this corrected w/remeasurement; feel this was a faulty reading. Patient was evaluated with lab work including CBC, CMP, troponin, BNP, UA, EKG, chest x-ray. Patient does not have an elevated white blood cell count. She is anemic but this is baseline in comparison to previous. Patient has a creatinine of 5.1 as I would expect in someone with ESRD. She has mild elevation in potassium but no EKG changes, troponin is baseline and she denies chest pain, no STEMI on EKG. BNP is also comparable to previous. UA is quite contaminated but given hematuria and greater than 100wbc, will treat as UTI in light of symptoms. Additionally, CXR does not show a clear consolidation but given COPD, increased purulent sputum and change in color, will treat for RLL pneumonia based on exam of rhonchi in the right lung base. She is allergic to ceftriaxone, levofloxacin and Bactrim; treated with doxycycline and Macrobid. Patient was also given Tylenol for mild to moderate headache. At this time, patient feels comfortable with the discharge. She was counseled on strict return precautions, discharged in stable condition. I anticipate she has HD tomorrow. Lab Data 09/30/25 21:26 09/30/25 21:26 Radiology Impressions Chest X-Ray 09/30/25 21:06 IMPRESSION: 1. Bilateral lower lobe atelectasis. 2. Cardiomegaly. Laboratory Results WBC 6.28 10^3/uL (3.29-11.43) 09/30/25 21: RBC 3.06 10^6/uL (3.85-5.65) L 09/30/25 21: Hgb 8.50 g/dL (11.27-16.99) L 09/30/25 21: Hct 28.4 % (36-47) L 09/30/25 21: MCV 92.8 fl (85-98) 09/30/25 21: MCH 27.8 pg (27-33) 09/30/25 21: MCHC 29.9 g/dL (30-55) L 09/30/25 21: RDW 19.8 % (12.1-15.1) H 09/30/25: Plt Count 103 10^3/cmm (157-399) L 09/30/25 21: MPV 10.6 fL (7.4-10.4) H 09/30/25 21: Neut % (Auto) 76.8 % 09/30/25: Lymph % (Auto) 14.3 % 09/30/25: [place] % (Auto) 6.1 % 09/30/25: Eos % (Auto) 2.1 % 09/30/25: Baso % (Auto) 0.5 % 09/30/25: Neut # (Auto) 4.83 10^3/uL (1.8-7.7) 09/30/25: Lymph # (Auto) 0.9 10^3/uL (0.8-4.8) 09/30/25: [place] # (Auto) 0.4 10^3/uL (0.2-0.9) 09/30/25: Eos # (Auto) 0.1 10^3/uL (0.0-0.8) 09/30/25: Baso # (Auto) 0.0 10^3/uL (0.0-0.1) 09/30/25: Nucleated RBC % (auto) 0 % 09/30/25: Nucleated RBCs # 0.0 /100WBC 09/30/25 21: Sodium 138 mmol/L (136-145) 09/30/25 21:26 Potassium 5.2 mmol/L (3.5-5.1) H 09/30/25 21: Chloride 99 mmol/L (98-107) 09/30/25 21: Carbon Dioxide 25 mmol/L (22-29) 09/30/25 21:26 Anion Gap 19.2 (5-19) H 09/30/25 21:26 BUN 32 mg/dL (8-23) H 09/30/25 21:26 Creatinine 5.1 mg/dL (0.5-0.9) H 09/30/25 21:26 GFR Calculation 8.4 mL/min (90-130) L 09/30/25 21: Glucose 214 mg/dL (65-115) H 09/30/25 21: Calculated Osmolality 299 mOsm/kg (285-295) H 09/30/25 21: Calcium 8.8 mg/dL (8.5-10.5) 09/30/25 21: Total Bilirubin 0.3 mg/dL (0.15-1.2) 09/30/25 21:26 AST 27 U/L (0-32) 09/30/25 21:26 ALT 33 U/L (0-33) 09/30/25 21: Alkaline Phosphatase 196 U/L (35-105) H 09/30/25 21:26 Troponin T Baseline 76 ng/L (0-10) H 09/30/25 21:26 NT-Pro-B Natriuret Pep 9563 pg/mL (0-125) H 09/30/25 21: Total Protein 6.4 g/dL (6.6-8.7) L 09/30/25 21: Albumin 4.1 g/dL (3.5-5.2) 09/30/25 21: Globulin 2.3 g/dL (1.3-4.6) 09/30/25 21: Urine Color Dark yellow (Yellow) 09/30/25 22: Urine Appearance Turbid (CLEAR) A 09/30/25 22:33 Urine pH 5.5 (5-7) 09/30/25 22:33 Ur Specific [place] 1.031 (1.005-1.030) H 09/30/25 22: Urine Protein 4+ (Negative) A 09/30/25 22:33 Urine Glucose (UA) 1+ (Normal) H 09/30/25 22: Urine Ketones Trace (Negative) 09/30/25 22: Urine Blood 3+ (Negative) A 09/30/25 22: Urine Nitrate Negative (Negative) 09/30/25 22: Urine Bilirubin Negative (Negative) 09/30/25 22: Urine Urobilinogen 1.0 mg/dL (Negative) 09/30/25 22: Ur Leukocyte Esterase 2+ (Negative) A 09/30/25 22: Urine RBC >100 /hpf (0-2) H 09/30/25 22:33 Urine WBC >100 /hpf (0-5) H 09/30/25 22: Ur Squamous Epith Cells 21-50 /hpf (0-5) H 09/30/25 22: Amorphous Sediment Not Reportable 09/30/25 22: Urine Bacteria None seen /hpf (NONE) 09/30/25 22: Hyaline Casts 10.73 /lpf 09/30/25 22:33 All radiology interpretation(s) finalized by discharge EKG Data EKG 1: Interpretation: Sinus bradycardia with a heart rate of 52, normal axis, mild prolongation and QT/QTc versus normal, no STEMI. EKG is comparable to previous. Discharge Plan Discharge Patient Disposition: Home Clinical Impression: Urinary tract infection Qualifiers: Urinary tract infection type: acute cystitis Hematuria presence: with hematuria Qualified Code(s): N30.01 - Acute cystitis with hematuria Right lower lobe pneumonia Qualifiers: Pneumonia type: due to unspecified organism Qualified Code(s): J18.9 - Pneumonia, unspecified organism Condition: Stable Prescriptions: New doxycycline hyclate 100 mg capsule 100 mg PO BID Qty: 10 0RF nitrofurantoin monohyd/m-cryst [Macrobid] 100 mg capsule 100 mg PO BID 5 Days Qty: 10 0RF Rx Instructions: must administer with a meal/food No Action albuterol sulfate 2.5 mg /3 mL (0.083 %) solution for nebulization 2.5 mg inhalation Q6H ropinirole 0.25 mg tablet 0.25 mg PO TID hydrocodone-acetaminophen 7.5-325 mg tablet 1 - 2 tab PO .Q4-6H [place] Caps 1 mg capsule 1 cap PO DAILY calcitriol 0.25 mcg capsule 0.25 mcg PO DAILY Rx Instructions: take with 0.5mcg levothyroxine 112 mcg tablet 112 mcg PO DAILY metoprolol tartrate 25 mg tablet 25 mg PO BID budesonide 0.5 mg/2 mL Suspension For Nebulization 0.5 mg inhalation BID.RESPIRATORY Qty: 100 0RF tizanidine 4 mg tablet 4 mg PO Q8H torsemide 100 mg tablet 100 mg PO DAILY hydralazine 100 mg tablet 100 mg PO TID amiodarone [Pacerone] 200 mg Tablet 200 mg PO DAILY Qty: 30 0RF sevelamer carbonate 800 mg Tablet 800 mg PO TID Qty: 90 0RF Eliquis 5 mg Tablet 5 mg PO BID@0900,2100 Qty: 60 0RF albuterol sulfate 90 mcg/actuation HFA aerosol inhaler 2 puff INHALATION Q6H PRN (Reason: Shortness Of Breath Or Wheezing) cefepime 1 gram Recon Soln 2 g IVP .mwf after dialysis 35 Days Qty: 10 0RF citalopram 20 mg Tablet 20 mg PO DAILY 30 Days Qty: 30 0RF amlodipine 10 mg Tablet 10 mg PO DAILY 30 Days Qty: 30 0RF insulin lispro [Humalog U-100 Insulin] 100 unit/mL Solution See Rx Instructions .ROUTE .COMPLEX Qty: 10 0RF Rx Instructions: Inject, subcut, 3 times daily, after meals, based on low-dose sliding scale polyethylene glycol 3350 17 gram Powder In Packet 17 g PO DAILY PRN (Reason: constipation) 30 Days Qty: 30 0RF insulin glargine U-300 conc [Toujeo Max U-300 SoloStar] 300 unit/mL (3 mL) insulin pen 5 unit SUBCUT BEDTIME Qty: 1 0RF Discharge Orders: Discharge ED (Routine); Ordered 09/30/25 Ordered By: Mine Ahumdaa Referrals: Lexis Ring MD [Staff Physician, Family Practice] Patient Instructions: Community Acquired Pneumonia (ED), Opioid Safety, Pain Management, Patient Portal & Uzma Instructions, Urinary Tract Infection - Women Activity Restrictions/Additional Instructions: Please continue to monitor your condition closely at home. Take antibiotics as prescribed. If your condition worsens or additional concerns arise, please return promptly to the emergency department for reassessment. Follow up with your primary care doctor in one week. Print Language: Djiboutian Coding Level of Care Code ED Metalsmith Apprentice for Aimee Gonzalez
--- NOTE | 2025-09-30 22:00 | ECG_ITS ---
[employer] ([facility]) Test Date: 2025-09-30 Pat Name: Berenice Pierce Department: Room: Gender: Female Sharepoint Consultant: : 1960 Requested By: Mine Ahumada Order Number: [id number] Reading MD: Constantino Storey M.D. Measurements Intervals [place] Rate: 52 P: 34 NH: 193 QRS: 10 QRSD: 101 T: 15 QT: 471 QTc: 441 Interpretive Statements SINUS BRADYCARDIA POSSIBLE ANTERIOR MYOCARDIAL INFARCTION , PROBABLY OLD [30 ms Q WAVE IN V3/V4, OR R < 0.2 mV IN V4] Compared to ECG 09/09/2025 16:02:19 There is no significant change Electronically Signed On 10-01-2025 20:14:47 PACKAGING MANAGER by Constantino Storey M.D. [email or web address]
[2025-09-30 22:01] LABS: Troponin(5th) Baseline 76 ng/L (0-10)
[2025-09-30 22:02] VITALS: BP 119/33; PULSE 53; O2SAT 94
[2025-09-30 22:10] LABS: Alanine Aminotransferase 33 U/L (0-33); Albumin Level 4.1 g/dL (3.5-5.2); Alkaline Phosphatase 196 U/L (35-105); Anion Gap 19.2 (5-19); Aspartate Amino Transferase 27 U/L (0-32); Blood Urea Nitrogen 32 mg/dL (8-23); Calcium 8.8 mg/dL (8.5-10.5); Carbon Dioxide 25 mmol/L (22-29); Chloride 99 mmol/L (98-107); Creatinine Clr Calc Pharmacy 13.5174; Globulin 2.3 g/dL (1.3-4.6); Glucose 214 mg/dL (65-115); NT Pro B Type Natriuretic Pept 9563 pg/mL (0-125); Osmolality Calculated 299 mOsm/kg (285-295); Potassium 5.2 mmol/L (3.5-5.1); Sodium 138 mmol/L (136-145); Total Protein 6.4 g/dL (6.6-8.7)
[2025-09-30 22:30] VITALS: BP 114/32; PULSE 54; O2SAT 95
[2025-09-30 22:42] LABS: Glucose Urine UA 1+ (Normal); Nitrate Urine Negative (Negative)
[2025-09-30 22:47] LABS: Add Urine Microscopic? YES
[2025-09-30 23:06] LABS: Specific Gravity, Urine 1.031 (1.005-1.030); UA Slide Review UA Slide Review Perf
--- NOTE | 2025-09-30 23:28 | PC.NURSE ---
this nurse assumed pt care at 2310 from Viry DIMAS.
[2025-09-30 23:30] VITALS: BP 126/39; PULSE 54; RESP 16; O2SAT 93
[2025-09-30] MEDS: nitrofurantoin SR (BID) 100 mg Capsule PO (23:39)
[2025-10-01 00:07] VITALS: BP 136/38; PULSE 58; RESP 18; O2SAT 93
== END 2025-10-01 00:06 | disposition home or self-care (01) ==
PROVIDERS: Emergency Provider Emergency Medicine; PCP Nurse Practitioner Family
DX: N30.01 Acute cystitis with hematuria (principal); J18.9 Pneumonia, unspecified organism; Z79.01 Long term (current) use of anticoagulants; Z79.4 Long term (current) use of insulin; Z72.0 Tobacco use; J44.9 Chronic obstructive pulmonary disease, unspecified; E11.22 Type 2 diabetes mellitus with diabetic chronic kidney disease; I12.0 Hypertensive chronic kidney disease with stage 5 chronic kidney disease or end stage renal disease; N18.6 End stage renal disease; Z99.2 Dependence on renal dialysis; Z99.81 Dependence on supplemental oxygen
CPT/HCPCS: 36415; 71045; 80053; 81001; 83880; 84484; 85025; 93005; 99285; J9999

== ENCOUNTER 2025-10-15 12:10 | Emergency (ER) | payer MEDICARE, MEDICAID, SELFPAY ==
[2025-10-15 12:12] VITALS: BP 128/69; PULSE 47; RESP 18; TEMP 36.4; O2SAT 92
--- NOTE | 2025-10-15 12:14 | XRR_ITS ---
PROCEDURE INFORMATION: Exam: XR Left Elbow Exam date and time: 10/15/2025 12:40 PM Age: 65 years old Clinical indication: Injury or trauma; Fall; Blunt trauma (contusions or hematomas); Elbow; Left TECHNIQUE: Imaging protocol: Radiologic exam of the left elbow. Views: 3 or more views. COMPARISON: CR XR shoulder LT min 2V* [id number] 10/15/2025 12:37 PM FINDINGS: Bones/joints: No acute fracture or dislocation. Mild degenerative changes within the elbow. Soft tissues: Multiple surgical clips in the anterior soft tissues. Vasculature: Vascular calcifications. XR/XR elbow LT min 3V* [id number] IMPRESSION: No acute osseous findings.
--- NOTE | 2025-10-15 12:14 | CTR_ITS ---
PROCEDURE INFORMATION: Exam: CT Cervical Spine Without Contrast Exam date and time: 10/15/2025 12:23 PM Age: 65 years old Clinical indication: Injury or trauma; Fall TECHNIQUE: Imaging protocol: Computed tomography of the cervical spine without contrast. Radiation optimization: All CT scans at this facility use at least one of these dose optimization techniques: automated exposure control; mA and/or kV adjustment per patient size (includes targeted exams where dose is matched to clinical indication); or iterative reconstruction. COMPARISON: CR XR cervical spine 3V* [id number] 07/26/2020 11:58 PM RADIATION DOSE METRICS: Total DLP (mGy-cm): 303 FINDINGS: Tubes, catheters and devices: Partially imaged left IJ central venous catheter. Bones: No acute fracture. Normal alignment. No significant disc bulge or herniation. No severe spinal canal stenosis. Multilevel bilateral facet arthropathy with areas of [id number] foraminal narrowing. Lungs: Lung apices are normal. Thyroid: 1 cm left thyroid nodule. Vasculature: Atherosclerotic calcifications of bilateral carotid bulbs. Soft tissues: Unremarkable. CT/CT cervical spin wo con* [id number] IMPRESSION: No acute cervical spine fracture. COMMENTS: Consistent with the [place] [employer]'s Incidental Findings Committee white paper (J Am Khari Radiol 2015): In patients aged 35 years and older with an incidental thyroid nodule equal to or greater than 1.[address], MRI or extrathyroidal US, further evaluation with dedicated thyroid US is recommended for patients with normal life expectancy and without comorbidities. For smaller nodules without suspicious features, no further evaluation or follow up is recommended.
--- NOTE | 2025-10-15 12:14 | XRR_ITS ---
PROCEDURE INFORMATION: Exam: XR Left Shoulder Exam date and time: 10/15/2025 12:37 PM Age: 65 years old Clinical indication: Injury or trauma; Fall; Blunt trauma (contusions or hematomas); Shoulder; Left TECHNIQUE: Imaging protocol: Radiologic exam of the left shoulder. Views: 2 or more views. COMPARISON: CR XR chest 1V portable [id number] 10/15/2025 12:35 PM FINDINGS: Bones/joints: Normal. Soft tissues: Normal. XR/XR shoulder LT min 2V* [id number] IMPRESSION: No acute findings.
--- NOTE | 2025-10-15 12:14 | CTR_ITS ---
PROCEDURE INFORMATION: Exam: CT Head Without Contrast Exam date and time: 10/15/2025 12:23 PM Age: 65 years old Clinical indication: Injury or trauma; Fall TECHNIQUE: Imaging protocol: Computed tomography of the head without contrast. Radiation optimization: All CT scans at this facility use at least one of these dose optimization techniques: automated exposure control; mA and/or kV adjustment per patient size (includes targeted exams where dose is matched to clinical indication); or iterative reconstruction. COMPARISON: CT head wo con* [id number] 09/06/2025 11:02 AM RADIATION DOSE METRICS: Total DLP (mGy-cm): 1231.84 FINDINGS: Brain: No hemorrhage. Mild periventricular and subcortical white matter hypodensities likely represent chronic small vessel ischemic changes. No mass effect. Cerebral ventricles: No ventriculomegaly. Paranasal sinuses: Visualized sinuses are unremarkable. No fluid levels. Mastoid air cells: Visualized mastoid air cells are well aerated. Bones: Mild hyperostosis frontalis. No acute fracture. Soft tissues: Unremarkable. CT/CT head wo con* [id number] IMPRESSION: No acute intracranial abnormality.
--- NOTE | 2025-10-15 12:14 | XRR_ITS ---
PROCEDURE INFORMATION: Exam: XR Chest Exam date and time: 10/15/2025 12:35 PM Age: 65 years old Clinical indication: Injury or trauma; Fall; Blunt trauma (contusions or hematomas) TECHNIQUE: Imaging protocol: Radiologic exam of the chest. Views: 1 view. COMPARISON: CR (CHEST, ) 09/30/2025 9:12 PM FINDINGS: Tubes, catheters and devices: Left IJ double-lumen central venous catheter tip is in the mid SVC. Lungs: Low lung volumes. Patchy bibasilar opacities, knies-qdksyvt-mspd-left, slightly increased from prior. Low lung volumes. Pleural spaces: Unremarkable. No pleural effusion. No pneumothorax. Heart/Mediastinum: Stable cardiomediastinal silhouette. Bones/joints: Partially imaged thoracolumbar fusion hardware. XR/XR chest 1V portable [id number] IMPRESSION: Bibasilar opacities, iphae-wjlexhn-snrd-left, are increased from prior. Findings could represent atelectasis, though superimposed infection is not excluded.
--- NOTE | 2025-10-15 12:14 | XRR_ITS ---
PROCEDURE INFORMATION: Exam: XR Bilateral Hips Exam date and time: 10/15/2025 12:31 PM Age: 65 years old Clinical indication: Injury or trauma; Fall; Blunt trauma (contusions or hematomas); Bilateral; Hip TECHNIQUE: Imaging protocol: Radiologic exam of the bilateral hips. Views: 2 views of hips with pelvis when performed. COMPARISON: CT abdomen pelvis wo con [id number] 08/24/2025 9:09 PM FINDINGS: Bones/joints: No definite acute fracture. No dislocation. Bnbu-ba-vmhypkqb degenerative changes of bilateral hips. Soft tissues: Ill-defined soft tissue calcifications. Vasculature: Scattered vascular calcifications. XR/XR hip BI 2V wo/w pel [id number] IMPRESSION: No definite acute osseous findings.
--- NOTE | 2025-10-15 12:16 | ECG_ITS ---
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 Measurements Intervals [place] Rate: 47 P: 66 SD: 189 QRS: 8 QRSD: 98 T: 18 QT: 543 QTc: 482 Interpretive Statements SINUS BRADYCARDIA POSSIBLE ANTERIOR MYOCARDIAL INFARCTION , OF INDETERMINATE AGE [30 ms Q WAVE IN V3/V4, OR R < 0.2 mV IN V4] Compared to ECG 09/30/2025 22:00:20 No significant changes Electronically Signed On 10-16-2025 17:37:12 MOTION PICTURE EQUIPMENT SUPERVISOR by Rachele Saeed M.D. [email or web address]
--- OUTSIDE RECORDS SUMMARY | 2025-10-15 12:23 | XMS_ITS | Clinical Summary ---
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 Gender Identity Not on file Sexual Orientation Not on file Last Filed Vital Signs Vital Sign Reading Time Taken Comments Blood Pressure 162/95 01/05/2020 9:26 AM BLENDING TANK HELPER Pulse - - Temperature 35.9 C (96.7 F) 01/05/2020 9:26 AM BLENDING TANK HELPER Respiratory Rate 18 01/05/2020 9:26 AM BLENDING TANK HELPER Oxygen Saturation 96% 01/05/2020 9:26 AM BLENDING TANK HELPER Inhaled Oxygen Concentration - - Weight 143 kg (315 lb 3.2 oz) 01/05/2020 6:47 AM BLENDING TANK HELPER Height 162.6 cm (5' 4 ) 01/05/2020 6:47 AM BLENDING TANK HELPER Body Mass Index 54.1 01/05/2020 6:47 AM BLENDING TANK HELPER Plan of Treatment Health Maintenance Due Date [...] 75+ series) 2033 Insurance CARE IMPROVEMENT PLUS [facility] MD ISHMAEL [id number] [facility] DUAL COMPLETE [facility] PPO D-SNP Care Teams Mold Stamper And Repairer Relationship Specialty Start Date End Date Art Rios MD [address] [place] [address] PCP - General Family Practice 04/07/13
--- OUTSIDE RECORDS SUMMARY | 2025-10-15 12:23 | XMS_ITS | Continuity of Care Document ---
Author Organization [facility] Roberto Carlos Zapata, [facility] ([facility]) Address [address] [place] [address] Assessment Encounter Date Assessment Date Assessment LastModified by Organization Details LastModified Time 10/03/2025 10/03/2025 Pt discharging home with son after dialysis today. [email or web address] Not available 10/03/2025 10:12:54 Plan of Treatment Reminders Order Date Submit Date Provider Last Modified By Organization Details Last Modified Time Details Appointments None record ed. Lab None record ed. Referral None record ed. Procedures None record ed. Surgeries None record ed. Imaging None record ed. Medication Orders None record ed. Patient TargetsNo targets recorded. Patient InstructionsNo instructions recorded. Reason for Referral None Reported. Problems Name Problem SNOMED Code Status Onset Date Resolution Date Notes Provider Name and Address Organization Details Recorded Time Osteomyelitis 52408166 Active 2024 [facility]12 Localized infection of skin AND/OR subcutaneous tissue 983908181 Active 2024 [facility] 5 11:03:47 Diabetic skin disorder Active 2024 [facility] 11:04:08 Type 2 diabetes mellitus 12820079 Active 2024 [facility] 11:04:18 End-stage renal disease 22551196 Active 2024 Maddy mckeon [facility] 5 11:04:27 Dependence on renal dialysis 365932751 Active 2024 Maddy mckeon, [facility] 11:04:37 Acute respiratory failure 53277040 Active 2024 Maddy mckeon, [facility] 11:04:51 Obstructive sleep apnea syndrome 25982033 Active 2024 Maddy Barahonae null, [facility] 11:05:03 Obesity 445956883 Active 2024 Maddy Barahonae null, [facility] 11:05:21 Diastolic heart failure 790485435 Active 2024 Maddy Mathews null, [facility] 11:05:33 Chronic ulcer of right foot Active 2024 Maddyluis eduardo Barahonae null, [facility] 11:06:04 Bacteremia 6834689 Active 2024 Maddy Mathews null, [facility] 11:06:19 Essential hypertension 63857377 Active 2024 Maddyluis eduardo Mathews null, [facility] 11:07:30 Mild major depression, single episode 37222281 Active 2024 Maddyluis eduardo Barahonae null, [facility] 11:06:38 Constipation 66906314 Active 2024 Maddy Mathews null, [facility] 11:06:53 Dyspnea 253779548 Active 2024 Maddy mckeon, [facility] 5 11:07:06 Wheezing 24589724 Active 2024 Maddy mckeon, [facility] 5 11:07:17 Hypothyroidism 45737780 Active 2024 Maddy mckeon, [facility] 5 11:07:46 Restless legs syndrome 81865957 Active 2024 Maddy mckeon, [facility] 5 11:07:58 Pain 17463436 [facility] 11:08:10 Problem Notes None recorded. Medical Equipment None Reported. Allergies Allergen ID Allergen Name Allergen Category Reaction Reaction Severity Criticality Documentation Date Start Date Code Code System Note Provider Name and Address Organization Details Recorded Time 76618 piperacil travon / tazobacta m medicatio n Not available Not available [facility] 10/03/2025 39624 RxNorm Not Available [facility] External Data Service - prod 5 04:39:48 58546 levofloxa nguyễn medicatio n Not available Not available [facility] 10/03/2025 47961 RxNorm Not Available joshua - External Data Service - prod 5 04:39:48 41567 diphenhyd ramine medicatio n Not available Not available [facility] 10/03/2025 3498 RxNorm Not Available joshua - External Data Service - prod 5 04:39:48 97061 Non-stero idal anti-infl ammatory agent (substanc e) medicatio n Not available Not available [facility] 10/03/2025 08981 5008 SNOMED Not Available joshua - External Data Service - prod 5 04:39:48 96032 sulfameth oxazole / trimethop rim medicatio n Not available Not available [facility] 10/03/2025 84351 RxNorm Not Available joshua - External Data Service - prod 5 04:39:48 66272 bumetanid e medicatio n Not available [facility] 10/03/2025 1808 RxNorm unrec ogniz ed react ion (text : Erupt ion (morp holog ic abnor malit y), code: 94056 06) (from exter nal sourc e) Not Available joshua - External Data Service - prod 5 04:39:48 44694 Substance with sulfonami de structure and antibacte rial mechanism of action (substanc e) medicatio n Not available Not available Not available 10/03/20252024 19016 8003 SNOMED Not Available joshua [employer] - [facility] 5 04:41:11 79076 sulfameth oxazole medicatio n Not available Not available Not available 10/03/20252024 90514 RxNorm Not Available joshua - [employer] - [facility] 5 04:41:54 66266 trimethop rim medicatio n Not available Not available Not available 10/03/20252024 35659 RxNorm Not Available [facility]uaPollito[facility]gles [employer] - [facility] 5 04:41:54 59920 ceftriaxo ne medicatio n Not available Not available Not available 10/03/20252024 2193 RxNorm Not Available joshua [employer] - [facility] 5 04:41:54 Medications Name Sig Start Date Stop Date Status Note LastModified by Organization Details LastModified Time clindamycin HCl 300 mg capsule TAKE 1 CAPSULE BY MOUTH EVERY 6 HOURS FOR 7 DAYS 09/26 completed Not Available Not Available Not Available albuterol sulfate 2.5 mg/3 mL (0.083 %) solution for nebulizatio n Inhale 3 mL every 6 hours by nebulizat ion route as needed. active Not Available Not Available No t Available azithromyci n 250 mg tablet TAKE TWO TABLETS BY MOUTH today, THEN TAKE ONE TABLET BY MOUTH DAILY 09/26 completed Not Available Not Available Not Available tizanidine 4 mg tablet Take 1 tablet every 8 hours by oral route. active Not Available Not Available No t Available amiodarone 200 mg tablet Give 1 tablet by mouth one time a day for CHF /HTN Hold if SBP less than 100 or Pulse less than 60 active Not Available Not Available No t Available cephalexin 250 mg capsule TAKE ONE CAPSULE BY MOUTH EVERY 48 hours. 09/26 completed Not Available Not Available Not Available Nystop 100,000 unit/gram topical powder Apply topically THREE TIMES DAILY. active Not Available Not Available No t Available hydralazine 25 mg tablet TAKE THREE TABLETS BY MOUTH THREE TIMES DAILY. active Not Available Not Available No t Available amlodipine 5 mg tablet TAKE ONE TABLET BY MOUTH ONCE a DAY FOR high blood pressure. active Not Available Not Available No t Available hydrocodone 10 mg-acetamin ophen 325 mg tablet Take 1 tablet(s) every 4 hours by oral route as needed. 2024 active Not Available Not Available Not Avai lable citalopram 20 mg tablet Take 1 tablet every day by oral route. active Not Available Not Available No t Available torsemide 100 mg tablet Take 1 tablet every day by oral route. active Not Available Not Available No t Available linezolid 600 mg tablet TAKE ONE TABLET BY MOUTH EVERY 12 hours FOR SEVEN DAYS. 09/26 completed Not Available Not Available Not Available ropinirole 0.25 mg tablet Take 1 tablet 3 times a day by oral route. active Not Available Not Available No t Available amlodipine 10 mg tablet Give 1 tablet bymouth one time a day for ESSENTIAL (PRIMARY) HYPERTENS ION (I10) Hold if SBP less than 100 orPulse is less than 60 active Not Available Not Available No t Available hydrocodone 7.5 mg-acetamin ophen 325 mg tablet TAKE ONE TABLET BY MOUTH EVERY FOUR TO SIX hours as needed for moderate pain 09/26 completed Not Available Not Available Not Available cephalexin 500 mg capsule TAKE ONE CAPSULE BY MOUTH TWICE DAILY FOR SEVEN DAYS. if TAKING ON DAY OF DIALYSIS PLEASE TAKE IT AFTERWARD S 09/26 completed Not Available Not Available Not Available hydralazine 100 mg tablet Give 1 tablet by mouth three times a day for HTNHold if SBP less than 100 or Pulse is less than 60 active Not Available Not Available No t Available calcitriol 0.5 mcg capsule Take 1 capsule every day by oral route. active Not Available Not Available No t Available ropinirole 0.5 mg tablet TAKE ONE TABLET BY MOUTH THREE TIMES DAILY. active Not Available Not Available No t Available budesonide 0.5 mg/2 mL suspension for nebulizatio n Inhale 2 mL twice a day by nebulizat ion route. active Not Available Not Available No t Available hydralazine 50 mg tablet TAKE ONE TABLET BY MOUTH THREE TIMES DAILY active Not Available Not Available No t Available insulin lispro (U-100) 100 unit/mL subcutaneou s solution INJECDT PER SLIDING SCALE UNDE THE SKIN THREE TIMES DAILY BEFORE A MEAL active Not Available Not Available No t Available albuterol sulfate HFA 90 mcg/actuati on aerosol inhaler Inhale 2 puffs every 6 hours by inhalatio n route as needed. active Not Available Not Available No t Available ipratropium bromide 42 mcg (0.06 %) nasal spray ADMINISTE R TWO SPRAYS in BOTH nostrils THREE TIMES DAILY. active Not Available Not Available No t Available ondansetron 4 mg disintegrat ing tablet Place 1 tablet every 4 hours by transling ual route as needed. active Not Available Not Available No t Available doxycycline hyclate 100 mg tablet TAKE ONE TABLET BY MOUTH DAILY FOR SEVEN DAYS 09/26 completed Not Available Not Available Not Available calcitriol 0.25 mcg capsule Take 1 capsule every day by oral route. active Not Available Not Available No t Available levothyroxi ne 112 mcg tablet Take 1 tablet every day by oral route. active Not Available Not Available No t Available amoxicillin 500 mg-potassiu m clavulanate 125 mg tablet TAKE ONE TABLET BY MOUTH EVERY 12 hours FOR SEVEN DAYS. 09/26 completed Not Available Not Available Not Available metoprolol tartrate 25 mg tablet Give 1 tablet by mouth two times a day forHTN Hold if SBP less than 110 or pulse less than 60 active Not Available Not Available No t Available pregabalin 25 mg capsule TAKE ONE CAPSULE BY MOUTH EVERY DAY active Not Available Not Available No t Available polyethylen e glycol 3350 Give 17 gram by mouth every 24hours as needed for K59.00 active Not Available Not Available No t Available Sure Comfort Pen Needle 31 gauge x 3/16 USE TO inject insulin UP TO FIVE times PER DAY. active Not Available Not Available No t Available sevelamer carbonate 800 mg tablet Take 1 tablet 3 times a day by oral route. active Not Available Not Available No t Available Humalog KwikPen (U-100) Insulin 100 unit/mL subcutaneou s Inject as per sliding scale: if 141 - 180 = 0; 181- 220 = 2; 221 - 260 = 4; 261 - 300 = 6; 301 - 350 = 8;351 - 400 = 10; 401 - 450 = 12; 451 - 500 = 14,subcut aneously after meals for TYPE 2 DIABETESM ELLITUS WITH OTHER SKIN COMPLICAT IONS(E11. if greater than 500, contact provider active Not Available Not Available No t Available [place] Caps 1 mg capsule Take 1 capsule every day by oral route in the morning. active Not Available Not Available No t Available Eliquis 5 mg tablet Take 1 tablet twice a day by oral route. active Not Available Not Available No t Available insulin glargine (U-300) conc. 300 unit/mL (3 mL) subcutaneou s pen Inject 5 units every day by subcutane ous route at bedtime. active Not Available Not Available No t Available Ozempic 2 mg/dose (8 mg/3 mL) subcutaneou s pen injector Inject TWO MG under the skin ONCE PER WEEK active Not Available Not Available No t Available Vitals Date Recorded Body height Body mass index (BMI) Body weight Oxygen saturation Heart rate Respiratory rate Body temperature Systolic And Diastolic Provider Name and Address Organization Details Last Updated DateTime 5 162.56 cm 45.4 kg/m2 811498. 79 g 94 % 59 /min 20 /min 97.6 [degF] 99/76 mm[Hg] Maddy Mathews [facility] 5 08:35:29 Social History None recorded. Functional Status None recorded. Mental Status None recorded. Family History Nothing Reported. Medical History No medical history recorded. Gynecological HistoryNo gynecological history recorded. Obstetrics History GPAL:G 0 P 0 0 0 0 Immunizations Vaccine Type Date Status Note Provider Nam e and Address Organization Details Recorded Time Influenza, split virus, trivalent, preservative 4 completed Not Available [facility] 10/03/2025 08:28:38 Influenza, split virus, quadrivalent, PF 8 completed Not Available [facility] 10/03/2025 08:28:38 COVID-19, mRNA, LNP-S, PF, 30 mcg/0.3 mL dose 1 completed Not Available [facility] 10/03/2025 08:28:38 COVID-19, mRNA, LNP-S, PF, 30 mcg/0.3 mL dose 1 completed Not Available [facility] 10/03/2025 08:28:38 zoster recombinant 2 completed Not Available [facility] 10/03/2025 08:28:38 Influenza, split virus, trivalent, preservative 2 completed Not Available [facility] 10/03/2025 08:28:38 zoster recombinant 3 completed Not Available [facility] 10/03/2025 08:28:38 COVID-19, mRNA, LNP-S, PF, elsa-sucrose, 30 mcg/0.3 mL 4 completed Not Available [facility] 10/03/2025 08:28:38 Influenza, adjuvanted, trivalent, PF 4 completed Not Available [facility] 10/03/2025 08:28:38 Past Encounters Encounter ID Performer Location Encounter Start Date Encounter Closed Date Diagnosis/Indication Diagnosis SNOMED-CT Code Diagnosis ICD10 Code Diagnosis IMO Codes Diagnosis Note [id number] Khoa Verdugo DO [facility] ([facility]) [address] [place] [phone] 10/03/2025 08:28:30 10/07/2025 10:58:10 End-stage renal disease 09685085 N18.6 [id number] 09/26/25: pt to attend dialysis today, will adjust pain medication to keep her comfortabl e while she is there. Pt agrees.09/21/25: Continue 3/wk dialysis in [facility], will monitor. Chronic pain 31155870 M5 4.59 09/26/25: Stop Hydrocodon e 7.5mg, start 10/325mg 1 PO q 4 hours PRN severe pain. Recheck next week, consider weaning Hydrocodon e. Pneumonia 697777763 J18. 9 [id number] Continue Doxy. Acute urin ev tract infection 827420590 N39.0 758020 Continue Macrobid. Health Concerns Section Related Observation LastModified by Organization Detai ls LastModified Time None Recorded Concern Status LastModified by Organization Details LastModified Time None Recorded Payers Encounter Date Sequence Insurance Name Policy Number Policy Jensen Covered Member ID Jensen Member ID Guarantor Name 10/03/2025 1 [employer] [facility] [employer] [facility] Berenice Pierce [id number] Berenice Pierce Notes Date Note Type Note Provider Name and Address Organization Details Recorded Time 10/03/2025 text/html ROS as noted in the HPI We are seeing [place] today for recheck of chronic pain. She is scheduled to go to dialysis today and is discharging home with her son. Seen in ER 10/01/25 for low O2 sat, O2 up to 94% after O2 applied. Returned with orders for Doxy and Macrobid for Pneumonia and UTI. She has been scheduling her own appts in [place] [facility]. She has been dc'd from therapy.She is requiring no residential care. Khoa Verdugo, DO [address] [place] [address], [phone], [facility] 10/03/2025 10:13:17 OBGyn Episode No OBEpisode recorded.
--- OUTSIDE RECORDS SUMMARY | 2025-10-15 12:24 | XMS_ITS | Data Portability ---
Author Organization [facility] Roberto Carlos Zapata, [facility] Address [address] [place] [id number] Assessment Encounter Date Assessment Date Assessment LastModified by Organization Details LastModified Time 10/03/2025 10/03/2025 Pt discharging home with son after dialysis today. [email or web address] Not available 10/03/2025 10:12:54 Plan of Treatment [...] and Address Organization Details Recorded Time Osteomyelitis 92559779 Active 2024 [facility]12 Localized infection of skin AND/OR subcutaneous tissue 110365981 Active 2024 [facility] 11:03:47 Diabetic skin disorder Active 2024 [facility] 11:04:08 Type 2 diabetes mellitus 50249235 Active 2024 [facility] 5 11:04:18 End-stage renal disease 14692415 Active 2024 Maddy mckeon [facility] 5 11:04:27 Dependence on renal dialysis 024932598 Active 2024 Maddy mckeon, [facility] 5 11:04:37 Acute respiratory failure 42833250 Active 2024 Maddy mckeon, [facility] 5 11:04:51 Obstructive sleep apnea syndrome 04664654 Active 2024 Maddy Mathews null, [facility] 5 11:05:03 Obesity 489343411 Active 2024 Maddy Mathews null, [facility] 5 11:05:21 Diastolic heart failure 286273709 Active 2024 Maddy Mathews null, [facility] 5 11:05:33 Chronic ulcer of right foot Active 2024 Maddyluis eduardo Barahonae null, [facility] 5 11:06:04 Bacteremia 8520544 Active 2024 Maddyluis eduardo Barahonae null, [facility] 5 11:06:19 Essential hypertension 77164208 Active 2024 Maddy Mathews null, [facility] 5 11:07:30 Mild major depression, single episode 51576761 Active 2024 Maddypop Barahonae null, [facility] 5 11:06:38 Constipation 74159548 Active 2024 Maddy Mathews null, [facility] 5 11:06:53 Dyspnea 548637632 Active 2024 Maddy mckeon, [facility] 5 11:07:06 Wheezing 91022707 Active 2024 Maddy mckeon, [facility] 5 11:07:17 Hypothyroidism 41260045 Active 2024 Maddy mckeon, [facility] 5 11:07:46 Restless legs syndrome 85739228 Active 2024 Maddy mckeon, [facility] 5 11:07:58 Pain 89452052 Active 2024 Maddy mckeon, [facility] 5 11:08:10 Problem Notes None recorded. Medical Equipment None Reported. Allergies Allergen ID Allergen Name Allergen Category Reaction Reaction Severity Criticality Documentation Date Start Date Code Code System Note Provider Name and Address Organization Details Recorded Time 40002 piperacil travon / tazobacta m medicatio n Not available Not available [facility] 10/03/2025 74807 RxNorm Not Available [employer] [employer] - prod 5 04:39:48 79121 levofloxa nguyễn medicatio n Not available Not available [facility] 10/03/2025 37044 RxNorm Not Available joshua - [employer] [employer] - prod 5 04:39:48 25825 diphenhyd ramine medicatio n Not available Not available [facility] 10/03/2025 3498 RxNorm Not Available joshua - External [employer] - prod 5 04:39:48 54278 Non-stero idal anti-infl ammatory agent (substanc e) medicatio n Not available Not available [facility] 10/03/2025 40571 5008 SNOMED Not Available [facility] - prod 5 04:39:48 78795 sulfameth oxazole / trimethop rim medicatio n Not available Not available [facility] 10/03/2025 00957 RxNorm Not Available [employer] - prod 5 04:39:48 12451 bumetanid e medicatio n Not available Not available [facility] 10/03/2025 1808 RxNorm unrec ogniz ed react ion (text : Erupt ion (morp holog ic abnor malit y), code: 16961 [id number]) (from exter nal sourc e) Not Available [facility] [employer] - prod 5 04:39:48 78958 Substance with sulfonami de structure and antibacte rial mechanism of action (substanc e) medicatio n Not available Not available Not available 10/03/20252024 57186 8003 SNOMED Not Available joshua [employer] 5 04:41:11 18943 sulfameth oxazole medicatio n Not available Not available Not available 10/03/20252024 28586 RxNorm Not Available joshua - [employer] - [employer] 5 04:41:54 09670 trimethop rim medicatio n Not available Not available Not available 10/03/20252024 38771 RxNorm Not Available [email or web address] - [employer] 5 04:41:54 08063 ceftriaxo ne medicatio n Not available Not available Not available 10/03/20252024 2193 RxNorm Not Available [email or web address] [facility] [employer] 5 04:41:54 Medications Name Sig Start Date [...] Not Available Not Available No t Available [place] Caps 1 mg capsule Take 1 capsule [...] No t Available Vitals Date Recorded Body weight Body mass index (BMI) Body height Oxygen saturation Heart rate Respiratory rate Body temperature Systolic And Diastolic Provider Name and Address Organization Details Last Updated DateTime 5 573790. 24 g 44.1 kg/m2 162.56 cm 99 % 94 /min 20 /min 98.2 [degF] 106/68 mm[Hg] [facility] 5 11:02:01 Date Recorded Body height Body mass index (BMI) Body weight Oxygen saturation Heart rate Respiratory rate Body temperature Systolic And Diastolic Provider Name and Address Organization Details Last Updated DateTime 5 162.56 cm 45.4 kg/m2 686755. 79 g 98 % 50 /min 18 /min 98.2 [degF] 133/69 mm[Hg] [facility] 5 09:53:25 Date Recorded Body height Body mass index (BMI) Body weight Oxygen saturation Heart rate Respiratory rate Body temperature Systolic And Diastolic Provider Name and Address Organization Details Last Updated DateTime 5 162.56 cm 45.4 kg/m2 312725. 79 g 94 % 59 /min 20 /min 97.6 [degF] 99/76 mm[Hg] Maddy Mathews [facility], [facility] 5 08:35:29 Social History None recorded. Functional Status None recorded. Mental Status None recorded. Family History Nothing Reported. Medical History No medical history recorded. Gynecological HistoryNo gynecological history recorded. Obstetrics History GPAL:G 0 P 0 0 0 0 Immunizations Vaccine Type Date Status Note Provider Nam e and Address Organization Details Recorded Time Influenza, split virus, trivalent, preservative 4 completed Not Available [facility] 10/03/2025 08:28:38 Influenza, split virus, quadrivalent, PF 8 completed Not Available [facility] 10/03/2025 08:28:38 COVID-19, mRNA, LNP-S, PF, 30 mcg/0.3 mL dose 1 completed Not Available [facility] 10/03/2025 08:28:38 COVID-19, mRNA, LNP-S, PF, 30 mcg/0.3 mL dose 1 completed Not Available [facility] 10/03/2025 08:28:38 zoster recombinant 2 completed Not Available [facility] 10/03/2025 08:28:38 Influenza, split virus, trivalent, preservative 2 completed Not Available [facility] 10/03/2025 08:28:38 zoster recombinant 3 completed Not Available [facility] 10/03/2025 08:28:38 COVID-19, mRNA, LNP-S, PF, elsa-sucrose, 30 mcg/0.3 mL 4 completed Not Available [facility] 10/03/2025 08:28:38 Influenza, adjuvanted, trivalent, PF 4 completed Not Available [facility] 10/03/2025 08:28:38 Past Encounters Encounter ID Performer Location Encounter Start Date Encounter Closed Date Diagnosis/Indication Diagnosis SNOMED-CT Code Diagnosis ICD10 Code Diagnosis IMO Codes Diagnosis Note [id number] Khoa Verdugo DO [facility] ([facility] [address] [place] [address] 10/03/2025 08:28:30 10/07/2025 10:58:10 End-stage renal disease 48066664 N18.6 [id number] 09/26/25: pt to attend dialysis today, will adjust pain medication to keep her comfortabl e while she is there. Pt agrees.09/21/25: Continue 3/wk dialysis in [facility]. Arma, will monitor. Chronic pain 54022791 M5 4.59 09/26/25: Stop Hydrocodon e 7.5mg, start 10/325mg 1 PO q 4 hours PRN severe pain. Recheck next week, consider weaning Hydrocodon e. Pneumonia 295876906 J18. 9 1312993876 Continue Doxy. Acute urin ev tract infection 982791067 N39.0 303748 Continue Macrobid. Health Concerns Section Related Observation LastModified by Organization Detai ls LastModified Time None Recorded Concern Status LastModified by Organization Details LastModified Time None Recorded Advance Directives Directive None Recorded Payers Insurance Date Sequence Insurance Name Policy Number Policy Jensen Covered Member ID Jensen Member ID Guarantor Name 09/18/2025 1 [employer] [facility] [employer] ([facility] Berenice Pierce [id number] Berenice Pierce Notes Date Note Type Note Provider Name and Address Organization Details Recorded Time 09/21/2025 text/html ROS as noted in the HPI We are evaluating [place] for new admission to [place] today, admitted 09/12/25. Admitted to [facility] 09/05-.Pmhx DM II, DM foot infections, ESRD on dialysis, TARA, HTN, COPD.Admitted to [facility] for concerns for severe right foot infection. Underwent right foot excisional debridement, cx showed pseudomonas, no osteomyelitis, Rx Cefepime 2g IV Mon/Wed/ Mon after dialysis. Hospitalization complicated by acute/ chronic resp failure from COPD. Dc'd on 2L n/c supplement O2. Concerns for Pneumonia. She received steroids inpt. Pt refusing dialysis in [place] ( won't let PICC line be placed, doesn't want poked anymore), goes to dialysis clinic Mon/ Mon/ Mon, receiving abx there.She is refusing Wound Care here, wanting to go [facility], orders have been written per Dr. Demarco, appt scheduled 10/02/25.Today she tells me she is tolerating dialysis well except she reports a leak in a line, losing some blood during her last dialysis. We do not have bloodwork from that event to review. She admits feeling cold, fatigued since.Denies fever, CP, change in bowel habits, black/ bloody/ dark stools. Last A1c was 5.8 on 09/03/25. Wound dressings daily with Hydrofera Blue to right foot per [place]. Not Available Not Available Not Available 09/26/2025 text/html ROS as noted in the HPI We are seeing pt in [place] today after fall last night. She fell out of her recliner last night, said she didn't hit her head, no LOC.She was given Hydrocodone twice last night, asking for it again this am.This is ordered 2 tabs q 4 hours PRN pain. She c/o pain to her head and her back.Also c/o dizziness this am. She is scheduled for dialysis today, supposed to receive abx after dialysis tx, however she says she doesn't feel like going, she wants to go to ER.Dialysis clinic advised she needs to be dialyzed and receive abx, to go to ER to get these if she doesn't feel like going to the clinic. Not Available Not Available Not Available 10/03/2025 text/html ROS as noted in the HPI We are seeing pt in [place] today for recheck of chronic pain. She is scheduled to go to dialysis today and is discharging home with her son. Seen in ER 10/01/25 for low O2 sat, O2 up to 94% after O2 applied. Returned with orders for Doxy and Macrobid for Pneumonia and UTI. She has been scheduling her own appts in [place] and [facility]. Home. She has been dc'd from therapy.She is requiring no long term care. Khoa Verdugo, [address] [place], [address], [facility], Roberto Carlos 10/03/2025 10:13:17 OBGyn Episode No OBEpisode recorded.
--- NOTE | 2025-10-15 12:34 | W.ED.FALL ---
HPI - Fall General: Chief Complaint: Fall Stated Complaint: Fall Time Seen by Provider: 10/15/25 12:11 Source: patient and EMS Mode of arrival: EMS Limitations: no limitations History of Present Illness: 65-year-old female who has a history of end-stage renal disease goes to dialysis Monday. States she is on her way to dialysis today and fell forward out of her wheelchair. She states that she did hit her head has left-sided head pain she also complains of left elbow pain and shoulder pain along with bilateral hip pain. She rates her pain a 6 out of 10 she denies any loss consciousness denies any vomiting diarrhea Related Data Home Medications ?Medication ?Instructions ?Recorded ?Confirmed albuterol sulfate 2.5 mg/3 mL 2.5 mg inhalation Q6H 12/25/24 09/16/25 (0.083 %) solution for nebulization calcitriol 0.25 mcg capsule 0.25 mcg PO DAILY 12/25/24 09/16/25 hydrocodone 7.5 mg-acetaminophen 1 - 2 tab PO .Q4-6H 12/25/24 09/16/25 325 mg tablet levothyroxine 112 mcg tablet 112 mcg PO DAILY 12/25/24 09/16/25 metoprolol tartrate 25 mg tablet 25 mg PO BID 12/25/24 09/16/25 ropinirole 0.25 mg tablet 0.25 mg PO TID 12/25/24 09/16/25 vitamin B complex and vitamin C 1 cap PO DAILY 12/25/24 09/16/25 no.20-folic acid 1 mg capsule ([place] Caps) hydralazine 100 mg tablet 100 mg PO TID 08/25/25 09/16/25 tizanidine 4 mg tablet 4 mg PO Q8H 08/25/25 09/16/25 torsemide 100 mg tablet 100 mg PO DAILY 08/25/25 09/16/25 albuterol sulfate 90 mcg/actuation 2 puff inhalation Q6H PRN 09/04/25 09/16/25 aerosol inhaler Shortness Of Breath Or Wheezing Previous Rx's ?Medication ?Instructions ?Recorded budesonide 0.5 mg/2 mL suspension 0.5 mg (2 mL) inhalation 01/02/25 for nebulization BID.RESPIRATORY #100 mL amiodarone 200 mg tablet (Pacerone) 200 mg PO DAILY #30 tabs 08/27/25 apixaban 5 mg tablet (Eliquis) 5 mg PO BID@0900,2100 #60 tabs 08/27/25 sevelamer carbonate 800 mg tablet 800 mg PO TID #90 tabs 08/27/25 cefepime 1 gram solution for 2 g IVP .mwf after dialysis 5 09/12/25 injection weeks #10 ea insulin glargine U-300 conc 300 5 unit (0.0167 mL) SUBCUT BEDTIME 09/12/25 unit/mL (3 mL) subcutaneous pen #1 mL (Toujeo Max U-300 SoloStar) insulin lispro 100 unit/mL See Rx Instructions .Route 09/12/25 subcutaneous solution (Humalog .COMPLEX #10 mL U-100 Insulin) doxycycline hyclate 100 mg capsule 100 mg PO BID #10 caps 09/30/25 Allergies Allergy/AdvReac Type Severity Reaction Status Date / Time bumetanide Allergy Unknown Unknown Verified 09/16/25 14:29 sulfamethoxazole (From Allergy Unknown Unknown Verified 09/16/25 14:29 Bactrim) trimethoprim (From Bactrim) Allergy Unknown Unknown Verified 09/16/25 14:29 ceftriaxone Allergy ALGY-Difficulty Verified 09/16/25 14:29 Breathing levofloxacin (From Levaquin) Allergy ADR-Itching Verified 09/16/25 14:29 NSAIDS (Non-Steroidal Allergy Unknown Verified 09/16/25 14:29 Anti-Inflamma PFSH ED PFSH: Medical History Missed dialysis Chronic osteomyelitis Infection of hemodialysis catheter ESRD on dialysis Chronic ulcer of right foot Poor intravenous access Elevated troponin Respiratory syncytial virus Uremia Headache emt intermediate (current) use of opiate analgesic Pain management contract signed Lumbar stenosis with neurogenic claudication Seizure PRES (posterior reversible encephalopathy syndrome) RLS (restless legs syndrome) TARA (obstructive sleep apnea) Chronic antibiotic suppression Staphylococcus epidermidis bacteremia Diastolic heart failure H/O staphylococcal septicemia Hyperglycemia Cellulitis Thyroid disease Chronic back pain HTN (hypertension) Obesity Surgical History 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 H/O: hysterectomy Arteriovenous fistula History of tonsillectomy History of cholecystectomy History of back surgery History of appendectomy History of adenoidectomy Family History Other Cancer Social History Smoking and tobacco/nicotine status: current every day tobacco/nicotine user Alcohol intake: never Substance/Drug Use: never Lives independently: Yes Household members: spouse Housing: House Marital status: Physical Exam Const: COMMON NORMALS: patient oriented x3 HENMT: COMMON NORMALS: normocephalic and atraumatic HEAD & SCALP: normocephalic and atraumatic Eye: COMMON NORMALS: Equal, round and reactive pupils present and EOMs intact bilaterally PUPIL: Yes Equal, round and reactive pupils present Neck/C-Spine: OTHER: in c collar Chest: COMMONS NORMALS: normal inspection of the chest and normal palpation of entire chest wall Resp: COMMON NORMALS: normal respiratory effort, No retractions, No use of accessory muscles and clear to auscultation bilaterally AUSCULTATION: clear to auscultation bilaterally Cardio: COMMON NORMALS: regular rate, regular rhythm and No murmurs present (Cardio) RATE: regular rate RHYTHM: regular rhythm GI: COMMON NORMALS: Normal to inspection, nondistended, normoactive bowel sounds present, Soft to palpation, non-tender and no masses PALPATION: Yes Soft to palpation Extremity: COMMON NORMALS: full ROM NARRATIVE EXTREMITY EXAM: Tenderness over left shoulder and left elbow along with bilateral hip tenderness no obvious deformities Neuro: COMMON NORMALS: patient oriented x3, moves all extremities and no focal motor deficits Psych: COMMON NORMALS: mental status grossly normal, Normal thought process present and cooperative THOUGHT PROCESS: Normal thought process present Skin: COMMON NORMALS: no rashes or lesions noted and no wounds GENERAL SKIN EXAM: no rashes or lesions noted Course Vital Signs: Vital signs: Vital Signs Temperature 97.6 F 10/15/25 12:12 Pulse Rate 46 L 10/15/25 13:52 Respiratory Rate 18 10/15/25 12:12 Blood Pressure 137/63 10/15/25 13:52 Pulse Oximetry 92 10/15/25 12:12 Oxygen Delivery Me thod Nasal Cannula 10/15/25 12:12 Oxygen Flow Rate 6 10/15/25 12:12 MDM - Fall Medical Decision Making 65-year-old female presents here after a fall of her wheelchair. Did extensive imaging that showed no acute fractures. Has a closed head injury along with left shoulder and elbow contusion no signs of fracture blood work here is at her baseline she stable for discharge at this time follow-up with worsening Medical Records I reviewed the patient's medical records. Lab Data I reviewed the patient's lab results. 10/15/25 12:57 10/15/25 12:57 Radiology Impressions Cervical Spine CT 10/15/25 12:14 IMPRESSION: No acute cervical spine fracture. COMMENTS: Consistent with the [place] [employer]'s Incidental Findings Committee white paper (J Am Khari Radiol 2015): In patients aged 35 years and older with an incidental thyroid nodule equal to or greater than 1.[address], MRI or extrathyroidal US, further evaluation with dedicated thyroid US is recommended for patients with normal life expectancy and without comorbidities. For smaller nodules without suspicious features, no further evaluation or follow up is recommended. Chest X-Ray 10/15/25 12:14 IMPRESSION: Bibasilar opacities, [id number], are increased from prior. Findings could represent atelectasis, though superimposed infection is not excluded. Elbow X-Ray 10/15/25 12:14 IMPRESSION: No acute osseous findings. Head CT 10/15/25 12:14 IMPRESSION: No acute intracranial abnormality. Hip/Pelvis X-Ray 10/15/25 12:14 IMPRESSION: No definite acute osseous findings. Shoulder X-Ray 10/15/25 12:14 IMPRESSION: No acute findings. Hand X-Ray 10/15/25 12:37 IMPRESSION: 1. Old healed fracture of the base of the 5th metacarpal. No definite acute osseous findings. 2. Ill-defined soft tissue density adjacent to the 5th carpometacarpal joint could represent soft tissue swelling or hematoma. Laboratory Results WBC 5.99 10^3/uL (3.29-11.43) 10/15/25 12:57 RBC 3.36 10^6/uL (3.85-5.65) L 10/15/25 12:57 Hgb 9.30 g/dL (11.27-16.99) L 10/15/25 12:57 Hct 30.6 % (36-47) L 10/15/25 12:57 MCV 91.1 fl (85-98) 10/15/25 12:57 MCH 27.7 pg (27-33) 10/15/25 12:57 MCHC 30.4 g/dL (30-55) 10/15/25 12:57 RDW 19.7 % (12.1-15.1) H 10/15/25 12:57 Plt Count 115 10^3/cmm (157-399) L 10/15/25 12:57 MPV 10.1 fL (7.4-10.4) 10/15/25 12:57 Neut % (Auto) 80.2 % 10/15/25 12:57 Lymph % (Auto) 11.5 % 10/15/25 12:57 Anderson % (Auto) 6.0 % 10/15/25 12:57 Eos % (Auto) 1.7 % 10/15/25 12:57 Baso % (Auto) 0.3 % 10/15/25 12:57 Neut # (Auto) 4.80 10^3/uL (1.8-7.7) 10/15/25 12:57 Lymph # (Auto) 0.7 10^3/uL (0.8-4.8) L 10/15/25 12:57 Anderson # (Auto) 0.4 10^3/uL (0.2-0.9) 10/15/25 12:57 Eos # (Auto) 0.1 10^3/uL (0.0-0.8) 10/15/25 12:57 Baso # (Auto) 0.0 10^3/uL (0.0-0.1) 10/15/25 12:57 Nucleated RBC % (auto) 0 % 10/15/25 12:57 Nucleated RBCs # 0.0 /100WBC 10/15/25 12:57 PT 14.70 SECONDS (12.1-14.9) 10/15/25 12:57 INR 1.07 (0.8-1.2) 10/15/25 12:57 Sodium 142 mmol/L (136-145) 10/15/25 12:57 Potassium 4.7 mmol/L (3.5-5.1) 10/15/25 12:57 Chloride 102 mmol/L (98-107) 10/15/25 12:57 Carbon Dioxide 23 mmol/L (22-29) 10/15/25 12:57 Anion Gap 21.7 (5-19) H 10/15/25 12:57 BUN 47 mg/dL (8-23) H 10/15/25 12:57 Creatinine 6.8 mg/dL (0.5-0.9) H* 10/15/25 12:57 GFR Calculation 6.1 mL/min (90-130) L 10/15/25 12:57 Glucose 190 mg/dL (65-115) H 10/15/25 12:57 Calculated Osmolality 311 mOsm/kg (285-295) H 10/15/25 12:57 Calcium 7.9 mg/dL (8.5-10.5) L 10/15/25 12:57 Total Bilirubin 0.4 mg/dL (0.15-1.2) 10/15/25 12:57 AST 14 U/L (0-32) 10/15/25 12:57 ALT 16 U/L (0-33) 10/15/25 12:57 Alkaline Phosphatase 143 U/L (35-105) H 10/15/25 12:57 Total Protein 6.8 g/dL (6.6-8.7) 10/15/25 12:57 Albumin 3.9 g/dL (3.5-5.2) 10/15/25 12:57 Globulin 2.9 g/dL (1.3-4.6) 10/15/25 12:57 TSH 8.89 uIU/mL (0.27-4.20) H 10/15/25 12:57 All radiology interpretation(s) finalized by discharge EKG Data EKG 1: I personally reviewed and interpreted this EKG as follows: EKG interpretation date: 10/15/25 EKG interpretation time: 13:04 Interpretation: nsr hr [address] elevation qrs 98 qtc 505 Discharge Plan Discharge Patient Disposition: Home Clinical Impression: Fall, Closed head injury, Contusion of left elbow Condition: Stable Prescriptions: No Action albuterol sulfate 2.5 mg /3 mL (0.083 %) solution for nebulization 2.5 mg inhalation Q6H ropinirole 0.25 mg tablet 0.25 mg PO TID hydrocodone-acetaminophen 7.5-325 mg tablet 1 - 2 tab PO .Q4-6H [place] Caps 1 mg capsule 1 cap PO DAILY calcitriol 0.25 mcg capsule 0.25 mcg PO DAILY Rx Instructions: take with 0.5mcg levothyroxine 112 mcg tablet 112 mcg PO DAILY metoprolol tartrate 25 mg tablet 25 mg PO BID budesonide 0.5 mg/2 mL Suspension For Nebulization 0.5 mg inhalation BID.RESPIRATORY Qty: 100 0RF tizanidine 4 mg tablet 4 mg PO Q8H torsemide 100 mg tablet 100 mg PO DAILY hydralazine 100 mg tablet 100 mg PO TID amiodarone [Pacerone] 200 mg Tablet 200 mg PO DAILY Qty: 30 0RF sevelamer carbonate 800 mg Tablet 800 mg PO TID Qty: 90 0RF Eliquis 5 mg Tablet 5 mg PO BID@0900,2100 Qty: 60 0RF albuterol sulfate 90 mcg/actuation HFA aerosol inhaler 2 puff INHALATION Q6H PRN (Reason: Shortness Of Breath Or Wheezing) cefepime 1 gram Recon Soln 2 g IVP .mwf after dialysis 35 Days Qty: 10 0RF insulin lispro [Humalog U-100 Insulin] 100 unit/mL Solution See Rx Instructions .ROUTE .COMPLEX Qty: 10 0RF Rx Instructions: Inject, subcut, 3 times daily, after meals, based on low-dose sliding scale insulin glargine U-300 conc [Toujeo Max U-300 SoloStar] 300 unit/mL (3 mL) insulin pen 5 unit SUBCUT BEDTIME Qty: 1 0RF doxycycline hyclate 100 mg capsule 100 mg PO BID Qty: 10 0RF Discharge Orders: Discharge ED (Routine); Ordered 10/15/25 Ordered By: Benny Iverson Referrals: Radha Sherwood NP [Primary Care Provider, Unknown] Discharge Diet: Advance as tolerated Discharge Activity: Resume usual activity Patient Instructions: Head Injury (ED), Contusion in Adults (ED) Print Language: Tamazight Coding Level of Care Code ED Theatrical Trouper for Aimee Gonzalez
--- NOTE | 2025-10-15 12:37 | XRR_ITS ---
PROCEDURE INFORMATION: Exam: XR Left Hand Exam date and time: 10/15/2025 12:47 PM Age: 65 years old Clinical indication: Injury or trauma; Fall; Blunt trauma (contusions or hematomas); Hand; Left; Additional info: Post reduction TECHNIQUE: Imaging protocol: Radiologic exam of the left hand. Views: 3 or more views. COMPARISON: CR XR hand LT min 3V* [id number] 07/27/2020 12:06 AM FINDINGS: Bones/joints: Old healed fracture of the base of the 5th metacarpal. No definite acute fracture visualized. No dislocation. Soft tissues: Ill-defined soft tissue density along the 5th carpometacarpal joint. Vasculature: Vascular calcifications. XR/XR hand LT min 3V* [id number] IMPRESSION: 1. Old healed fracture of the base of the 5th metacarpal. No definite acute osseous findings. 2. Ill-defined soft tissue density adjacent to the 5th carpometacarpal joint could represent soft tissue swelling or hematoma.
[2025-10-15 13:16] LABS: Hematocrit 30.6 % (36-47); Hemoglobin 9.30 g/dL (11.27-16.99); Mean Corpuscular HGB Conc 30.4 g/dL (30-55); Mean Corpuscular Hemoglobin 27.7 pg (27-33); Mean Corpuscular Volume 91.1 fl (85-98); Nucleated Red Blood Cells % 0 %; Platelet Count 115 10^3/cmm (157-399); Red Blood Count 3.36 10^6/uL (3.85-5.65); White Blood Count 5.99 10^3/uL (3.29-11.43)
[2025-10-15 13:29] LABS: INR 1.07 (0.8-1.2); Prothrombin Time 14.70 SECONDS (12.1-14.9)
[2025-10-15 13:47] LABS: Alanine Aminotransferase 16 U/L (0-33); Albumin Level 3.9 g/dL (3.5-5.2); Alkaline Phosphatase 143 U/L (35-105); Anion Gap 21.7 (5-19); Aspartate Amino Transferase 14 U/L (0-32); Blood Urea Nitrogen 47 mg/dL (8-23); Calcium 7.9 mg/dL (8.5-10.5); Carbon Dioxide 23 mmol/L (22-29); Chloride 102 mmol/L (98-107); Creatinine Clr Calc Pharmacy 10.5520; Globulin 2.9 g/dL (1.3-4.6); Glucose 190 mg/dL (65-115); Osmolality Calculated 311 mOsm/kg (285-295); Potassium 4.7 mmol/L (3.5-5.1); Sodium 142 mmol/L (136-145); Thyroid Stimulating Hormone 8.89 uIU/mL (0.27-4.20); Total Protein 6.8 g/dL (6.6-8.7)
[2025-10-15 13:52] VITALS: BP 137/63; PULSE 46
== END 2025-10-15 14:17 | disposition home or self-care (01) ==
PROVIDERS: Emergency Provider Emergency Medicine; PCP Nurse Practitioner Family
DX: M25.552 Pain in left hip (principal); M25.551 Pain in right hip; S09.8XXA Other specified injuries of head, initial encounter; S50.02XA Contusion of left elbow, initial encounter; W05.0XXA Fall from non-moving wheelchair, initial encounter; Z79.01 Long term (current) use of anticoagulants; Z79.4 Long term (current) use of insulin; Z72.0 Tobacco use; I13.2 Hypertensive heart and chronic kidney disease with heart failure and with stage 5 chronic kidney disease, or end stage renal disease; N18.6 End stage renal disease; I50.30 Unspecified diastolic (congestive) heart failure; Z99.2 Dependence on renal dialysis
CPT/HCPCS: 36415; 70450; 71045; 72125; 73030; 73080; 73130; 73521; 80053; 84443; 85025; 85610; 93005; 99285

== ENCOUNTER 2025-10-24 12:32 | Observation (INO) | payer MEDICARE, MEDICAID, SELFPAY ==
--- OUTSIDE RECORDS SUMMARY | 2025-10-06 08:20 | XMS_ITS ---
Author Organization [facility] Address [address] [place] [address] Care Team Providers Care Physician Office Specialist Name Role Phone FaustoGerri REASON FOR VISIT [phone] Encounters Encounter Location Date Provider Diagnosis [facility] [address] [place] [address] 10/06/2025 Gerri Lambert Chronic pain syndrome G89.4 Assessments Encounter Date Diagnosis (ICD Code) Assessment Notes Treatment Notes Treatment Clinical Notes Section Notes 10/06/2025 Chronic pain syndrome (ICD-10 - G89.4) 10/06/2025 Other Makenna Ross am scribing for Dr. Gerri pardo. Gerri Ross, personally performed the services described in this documentation, as scribed by Makenna Mosley, and it is both accurate and complete. Plan Of Treatment Treatment Notes Assessment Notes Other Makenna Ross am scribing for Dr. Gerri Lambert. Gerri Ross, personally performed the services described in this documentation, as scribed by Makenna Mosley, and it is both accurate and complete. Next Appt Details Provider Name:Gerri Vandana Esmer Hirsch, 11/18/2025 10:20:00 AM, [address] [place], [address], History and Physical Notes * HPI (History of Present Illness) Category Sub-Category Detail Notes Category Not es Pain Details Pain Location ___ Duration ___ Onset ___ Frequency of Pain ___ Quality ___ Radiation ___ Severity of pain at its worst ___ Severity of pain at its best ___ Severity of average pain ___ Severity of pain right now ___ Worsening factors ___ Relieving factors ___ Associated symptoms ___ Severity of pain on medication ___ When did you last take your pain medicin e ___ Opioid Assessment Tools Pill Count ___ Today's Rapid Urine Drug Screen ___ [place] Prescription Monitoring Program ___ SOAPP-R (Screener/Opioid Assessment for Patient) ___ Today's SOAPP-R Score ___ Treatment History Caregivers you have visited ___ Test undergone in the past ___ Past medication you have taken ___ Treatments you have had ___ Were prior treatments of any help? ___ When was prior treatment started? ___ STOP-BANG Questionnaire Do you snore tristian dly (louder than talking or loud enough to be heard through closed doors)? ___ Do you often feel tired, fatigued, or sl eepy during the day? ___ Has anyone observed you stop breathing d uring your sleep ___ Do you have or are you being treated for high blood pressure? ___ BMI greater than 35 kg/m2? ___ Age over 50 years old? ___ Gender: Male ___ Neck circumference is measured greater t gil 40cm? ___ Score ___ Oxygen ___ CPAP ___ Progress Notes * Refugio MEYERSOB: [birth year] (65 yo F)Acc No.[id number]:10/06/2025 Progress Notes Patient: Palak Berenice ramirez Provider: Alice Lambert MD :1960 A ge:65 Y S ex:Female Date:10/06/2025 Address:[address] [place], [place] [id number] Subjective: * Chief Complaints: * [phone] [id number] * HPI: Nataliia tam Details: Pain Location _ __. Duration _ __. Onset _ __. Frequency of Pain _ __. Quality _ __. Radiation _ __. Severity of pain at its worst _ __. Severity of pain at its best _ __. Severity of pain on medication _ __. Severity of average pain _ __. Severity of pain right now _ __. Worsening factors _ __. Relieving factors _ __. Associated symptoms _ __. When did you last take your pain medicine _ __. O pioid Assessment Tools: SOAPP-R (Screener/Opioid Assessment for Patient) _ __. Today's SOAPP-R Score _ __. Pill Count _ __. Today's Rapid Urine Drug Screen _ __. [place] Prescription Monitoring Program _ __. T reatment History: Caregivers you have visited _ __. Test undergone in the past _ __. Past medication you have taken _ __. Treatments you have had _ __. Were prior treatments of any help? _ __. When was prior treatment started? _ __. S TOP-BANG Questionnaire: Do you snore loudly (louder than talking or loud enough to be heard through closed doors)? _ __. Do you often feel tired, fatigued, or sleepy during the day??___. Has anyone observed you stop breathing during your sleep _ __. Do you have or are you being treated for high blood pressure??___. BMI greater than 35 kg/m2? _ __. Age over 50 years old? _ __. Gender: Male _ __. Neck circumference is measured greater than 40cm? _ __.? Score _ __. Oxygen _ __. CPAP _ __. * ROS: G eneral - Multi System: Constitutional D eniesfever, fatigue, weight gain, weight loss, sleep difficulty. R espiratory D enies, cough, shortness of breath, COPD/emphysema, sleep apnea, wheezing, snoring. G astrointestinal?Denies, nausea, vomiting, constipation, diarrhea, abdominal pain. N eurologic D enies, headaches, numbness, weakness, memory loss, excessive sedation. P sychiatric D enies depression, anxiety, suicidal thoughts/actions, panic attacks. Assessment: * Assessment: 1. C hronic pain syndrome - G89.4 (Primary) Plan: * Treatment: Billing Information: * Procedure Codes: * Electronic signature of Thelma Lambert MD on 10/24/2025 at 12:38 PM LICENSED HOME INSPECTOR Sign off status: Pending * Provider: Alice Lambert MD Date: 1 12/06/2024 Generated for Charley díaz/Hawa/Syed on: 12/25/2024 12:38 PM LICENSED HOME INSPECTOR
--- OUTSIDE RECORDS SUMMARY | 2025-10-06 08:20 | XMS_ITS ---
Author Organization [facility] Address [address] [place] [address] Care Team Providers Care Freight Delivery Driver Name Role Phone FaustoGerri REASON FOR VISIT [phone] Encounters Encounter Location Date Provider Diagnosis [facility] [address] [place] [address] 10/06/2025 Gerri Lambert Chronic pain syndrome G89.4 [...] Esmer Hirsch, 11/18/2025 10:20:00 AM, [address] [place], [address], History and Physical Notes * HPI (History [...] ___ Today's Rapid Urine Drug Screen ___ [place] Prescription Monitoring Program ___ SOAPP-R (Screener/Opioid Assessment [...] * Refugio MEYERSOB: [birth year] (65 yo F)Acc No.[id number]:10/06/2025 Progress Notes Patient: Palak Berenice ramirez Provider: Alice Lambert MD :1960 A ge:65 Y S ex:Female Date:10/06/2025 Address:[address] [place], [place] [id number] Subjective: * Chief Complaints: * [phone] * HPI: Nataliia tam Details: Pain Location [...] Today's Rapid Urine Drug Screen _ __. [place] Prescription Monitoring Program _ __. T reatment [...] Electronic signature of Thelma Lambert MD on 10/25/2025 at 02:11 PM RN IMCU Sign off status: Pending * Provider: Alice Lambert MD Date: 1 12/06/2024 Generated for Charley díaz/Hawa/Syed on: 12/26/2024 02:11 PM RN IMCU
--- OUTSIDE RECORDS SUMMARY | 2025-10-21 12:45 | XMS_ITS | Encounter Summary ---
Author Organization [facility] Address [address] [place] [address] Care Team Providers Care Commercial Attorney Name Role Phone Art Rios MD Primary Care Provider [phone] Encounter Details Date Type Department Care Team (Latest Contact Info) Description 10/21/2025 12:45 PM CEMENTER - 10/21/2025 11:59 PM CEMENTER Hospital Encounter [facility] [place] [address] [place] [address] Syd Simms Jr., MD [address] [place] [address] Discharge Disposition: Home or Self Care Social History Tobacco Use Types Packs/Day Years [...] on file Legal Sex Female 12:45 PM CEMENTER Gender Identity Not on file Sexual Orientation Not on file documented as of this encounter Progress Notes * Demetrice Sandoval, KWAKU - 10/21/2025 12:45 PM CST Images from the original note were not included. Dr. Simms evaluated, Skin sub placement - Puraply 2 cm x 4 cm Application #1 65 year old female referred to the wound care clinic from [facility]. Patient hasa Chronic DFU on Right Plantar foot. Patient has been managing for about a year. History of diabetes and is on Dialysis 3 days weekly Patient arrived to the clinic today in scooter, dressing in place from the nursing facility. Removed Dressing, cleansed leg with easi cleanse and cleansed wound with Hysept. Measurements and picturesobtained. 10.02.25> Melgisorb Ag, Zinc unna boot to right leg 10.21.25 Dr. Simms evaluated, Skin sub placement - Puraply 2 cm x 4 cm Application #1 Right leg Non pitting non weepy edema. Measurement of Right Leg: Pedal 23.5 cm, Ankle 27 cm, calf 51 cm Right Plantar foot Assessment: Pale pink wound bed prior to debridement. 100% granulated post debridement. Edges attached. Periwound dry. Moderate sanguinous drainage. Measurement: 3.8 cm x 2.2 cm x 0.2 . Right heel scab prior to debridement: resolved Treatment: Application #1: Puraply 2 cm x 4 cm Lot # [id number] Exp: 2027-12-15 Applied Mepitel to right Plantar foot Skin substitute and secured with Steristrips. Mextra applied over Mepitel for absorption. Compression wrap Unna boot. Unna applied with patient foot in dorsiflexed position. Starting at thebase of the toes and beginning at the fifth metatarsal head. Using 50% stretch and ending at the fibular head just below back of the knee. Left Leg Assessment: Non pitting non weepy edema present. Leg Measurement: Pedal 24 cm ankle 27.5 cm, calf 55 cm Treatment: Compression wrap Unna boot. Unna applied with patient foot in dorsiflexed position. Starting at the base of the toes and beginning at the fifth metatarsal head. Using 50% stretch and ending at the fibular head just below back of the knee. Education: Patient educated on signs and symptoms to watch for while wearing compression. These include any chest pain, difficulty breathing and discoloration or numbness of toes that is not th patients normal. If patient experiences any of these symptoms they are advised to remove compression and go to the ER of their choice. Patient states verbalized understanding. Patient advised to elevate,exercise legs while possible. Wear compression stocking when experiencing + 2 pitting edema. Next scheduled visit: 12.9.25 Right foot on arrival New skin sub placement New dressing right leg Left leg new dressing NTER * Syd Simms Jr., MD - 10/21/2025 12:45 PM CST Wound Care Clinic Progress Note Berenice Pierce 1960 CSN: [id number] Subjective: This is a 65 y.o. female followed at the outpatient wound care clinic due to a diabetic foot ulcer on the right plantar foot with fatty layer exposed. Objective: General appearance: alert, in no distress Neck: Trach midline Lungs: clear to auscultation bilaterally, normal respiratory effort Heart: regular rate and rhythm Abdomen: Soft no tenderness. Extremities: Right leg Non pitting non weepy edema. Measurement of Right Leg: Pedal 23.5 cm, Ankle 27 cm, calf 51 cm Right Plantar foot Assessment: Pale pink wound bed prior to debridement. 100% granulated post debridement. Edges attached. Periwound dry. Moderate sanguinous drainage. Measurement: 3.8 cm x 2.2 cm x 0.2 . Right heel eschar prior to debridement: resolved Skin: Warm, dry Neurologic: Grossly normal Data Review: CBC: No results for input(s): WBC , HGB , HCT , PLT , MCV in the last 72 hours. BMP:No results for input(s): GLUCOSE , BUN , CREAT , NA , K , CL , CO2 , ANIONGAP , CA , PO4 in the last 72 hours. Assessment: Right distal plantar foot diabetic foot ulcer with fatty layer exposed. Uncontrolled diabetes mellitus type 2. Chronic venous insufficiency of both lower legs. Chronic renal insufficiency. Limited mobility. Morbid obesity with a BMI of 44. Patient Active Problem List Diagnosis Code Diabetic ulcer of right midfoot associated with type 2 diabetes mellitus, with fat layer exposed ([facility]) E11.621, L97.412 Diabetic ulcer of right heel associated with type 2 diabetes mellitus, with fat layer exposed ([facility]) E11.621, L97.412 Type 2 diabetes mellitus with diabetic polyneuropathy ([facility]) E11.42 Class 3 severe obesity due to excess calories without serious comorbidity with body mass index (BMI) of 40.0 to 44.9 in adult ([facility]) E66.813, Z68.41 Venous insufficiency (chronic) (peripheral) I87.2 Plan: Debridement performed today and PuraPly AM application #1. Patient instructed to elevate her leg to diminish swelling. Gave her recommendations regarding her diet for control of her blood sugars and for weight loss. The patient needs to wear her Aircast boot at all times if she is doing any weightbearing. Will provide compression with an Unna's boot with two-step compression. Will follow-up at the outpatient wound care clinic until healed. Finn Simms Jr., M.D., F.A.C.S. NTER documented in this encounter OR Notes * Operative Report - Syd Simms Jr., MD - 10/21/2025 12:45 PM CST Procedure: 1.) Type of debridement performed on right plantar foot diabetic foot ulcer in preparation for placement of skin substitute: Excisional: The surgical removal or cutting away of devitalized tissue, necrosis, or slough. Non-Excisional: The nonoperative brushing, irrigating, scrubbing, or washing of devitalized tissue,necrosis, slough, or foreign material Excisional: The surgical removal or cutting away of devitalized tissue, necrosis, or slough 2.) Deepest type of tissue removed: Subcutaneous tissue 3). Instrument(s) used: Other (please specify) curette 4). Nature of the tissue removed: Non-viable tissue and Slough 5). Appearance of the wound after debridement: Fresh bleeding tissue 6). Size of the wound (Total surface area debrided, this may differ than the actual total size of the wound) 8.36 (Specify sq cm) The Patient tolerated well the procedure. Finn Simms Jr., M.D., F.A.C.S. NTER * Operative Report - Syd Simms Jr., MD - 10/21/2025 12:45 PM CST Procedure: PuraPly AM application #1 Under control conditions PuraPly AM was placed over the diabetic foot ulcer with fatty layer exposed on the right distal plantar foot. Puraply 2 cm x 4 cm Lot # [id number] Exp: 2027-12-15 Applied Mepitel to right Plantar foot Skin substitute and secured with Steristrips. Mextra applied over Mepitel for absorption. Compression wrap Unna boot. Unna applied with patient foot in dorsiflexed position. Starting at thebase of the toes and beginning at the fifth metatarsal head. Using 50% stretch and ending at the fibular head just below back of the knee. The patient tolerated well the procedure. Finn Simms Jr., M.D., F.A.C.S. NTER documented in this encounter Plan of Treatment Upcoming Encounters Date Type Department Care Team (Late st Contact Info) Description 10/28/2025 12:45 PM CEMENTER Appointment [facility] [address] [address] documented as of this encounter Visit Diagnoses Not on filedocumented in this encounter Care Teams Commercial Attorney Relationship Specialty Start Date End Date Art Rios MD [address] [place] [address] PCP - General Family Practice 04/07/13 documented as of this encounter
--- OUTSIDE RECORDS SUMMARY | 2025-10-21 12:45 | XMS_ITS | Encounter Summary ---
Author Organization [facility] Address [address] [place] [address] Care Team Providers Care Admin Asst Name Role Phone Art Rios MD Primary Care Provider [phone] Encounter Details Date Type Department Care Team (Latest Contact Info) Description 10/21/2025 12:45 PM QUALITY CONTROL HEAD - 10/21/2025 11:59 PM QUALITY CONTROL HEAD Hospital Encounter [facility] [place] [address] [place] [address] Syd Simms Jr., MD [address] [place] [address] Discharge Disposition: Home or Self [...] on file Legal Sex Female 12:45 PM QUALITY CONTROL HEAD Gender Identity Not on file Sexual Orientation Not on file documented as of this encounter Progress Notes * Demetrice Sandoval, KWAKU - 10/21/2025 12:45 PM CST Images from the original note were not included. Dr. Simms evaluated, Skin sub placement - Puraply 2 cm x 4 cm Application #1 65 year old female referred to the wound care clinic from [facility]. Patient hasa Chronic DFU on Right Plantar [...] 2 cm x 4 cm Lot # [id number] Exp: 2027-12-15 Applied Mepitel to right Plantar [...] dressing right leg Left leg new dressing ITY CONTROL HEAD * Syd Simms Jr., MD - 10/21/2025 12:45 PM CST Wound Care Clinic Progress Note Berenice Pierce 1960 CSN: [id number] Subjective: This is a 65 y.o. female [...] 2 diabetes mellitus, with fat layer exposed ([facility]) E11.621, L97.412 Diabetic ulcer of right heel associated with type 2 diabetes mellitus, with fat layer exposed ([facility]) E11.621, L97.412 Type 2 diabetes mellitus with diabetic polyneuropathy ([facility]) E11.42 Class 3 severe obesity due to excess calories without serious comorbidity with body mass index (BMI) of 40.0 to 44.9 in adult ([facility]) E66.813, Z68.41 Venous insufficiency (chronic) (peripheral) I87.2 [...] until healed. Finn Simms Jr., M.D., F.A.C.S. ITY CONTROL HEAD documented in this encounter OR Notes * [...] the procedure. Finn Simms Jr., M.D., F.A.C.S. ITY CONTROL HEAD * Operative Report - Syd Simms Jr., MD - 10/21/2025 12:45 PM CST Procedure: PuraPly AM application #1 Under control conditions PuraPly AM was placed over the diabetic foot ulcer with fatty layer exposed on the right distal plantar foot. Puraply 2 cm x 4 cm Lot # [id number] Exp: 2027-12-15 Applied Mepitel to right Plantar [...] the procedure. Finn Simms Jr., M.D., F.A.C.S. ITY CONTROL HEAD documented in this encounter Plan of Treatment Upcoming Encounters Date Type Department Care Team (Late st Contact Info) Description 10/28/2025 12:45 PM QUALITY CONTROL HEAD Appointment [facility] [address] [address] documented as of this encounter Visit Diagnoses Not on filedocumented in this encounter Care Teams Admin Asst Relationship Specialty Start Date End Date Art Rios MD [address] [place] [address] PCP - General Family Practice 04/07/13 documented as of this encounter
[2025-10-24] VITALS (12 sets, daily range): BP systolic 94–187; BP diastolic 48–89; PULSE 54–67; RESP 14–24; TEMP 36.3–36.6; O2SAT 92–96; BMI 44.6
--- OUTSIDE RECORDS SUMMARY | 2025-10-24 12:38 | XMS_ITS | Clinical Summary ---
Author Organization [facility] Address [address] [facility] Attn: Epic Prelude ADT STEPHEN YATES [address] Care Team Providers Care Health Safety Instructor Name Role Phone Art Rios MD Primary Care Provider [phone] Allergies Active Allergy Reactions Criticality Noted Date Comments Bumetanide Rash Low 05/12/2025 Diphenhydramine Hallucination,Deliri u m High 05/12/2025 Levofloxacin Rash Low 01/05/2020 Nsaids (Non-Steroidal Anti-Inflammatory Drug) Renal Dysfunctions Medium 01/05/2020 Piperacillin-Tazobactam Anaphylaxis,Itching High Sulfa (Sulfonamide Antibiotics) Unknown 05/12/2025 Sulfamethoxazole-Trimeth oprim Itching,Rash Low 05/12/2025 cant take because of kidneys Medications No known medications Active Problems Problem Noted Date Diagnosed Date Diabetic ulcer of right midf oot associated with type 2 diabetes mellitus, with fat layer exposed 10/02/2025 Diabetic ulcer of right heel associated with type 2 diabetes mellitus, with fat layer exposed 10/02/2025 Type 2 diabetes mellitus with diabetic polyneuro ok 10/02/2025 Class 3 severe obesity due t o excess calories without serious comorbidity with body mass index (BMI) of 40.0 to 44.9 in adult 10/02/2025 Venous insufficiency (chronic) (peripheral) 09/20 Encounters Date Type Department Care Team Description 10/21/2025 12:45 PM CHAIR SPRING ASSEMBLER - 10/21/2025 11:59 PM CHAIR SPRING ASSEMBLER Hospital Encounter [facility] [address] [address] Syd Simms Jr., MD Discharge Disposition: Home or Self Care 10/15/2025 4:45 AM CHAIR SPRING ASSEMBLER - 10/15/2025 11:59 PM CHAIR SPRING ASSEMBLER Hospital Encounter [facility] [place] [address] [address] [facility] Discharge Disposition: Home or Self Care 10/07/2025 External Device Data STL ABSTRACTION Provider, Abstract 10/07/2025 External Device Data STL ABSTRACTION Provider, Abstract 10/07/2025 External Device Data STL ABSTRACTION Provider, Abstract 10/02/2025 1:26 PM CHAIR SPRING ASSEMBLER - 10/02/2025 11:59 PM CHAIR SPRING ASSEMBLER Hospital Encounter [address] [address] Syd Simms Jr., MD Discharge Disposition: Home or Self Care 09/23/2025 External Device Data STL ABSTRACTION Provider, Abstract 09/16/2025 External Device Data STL ABSTRACTION Provider, Abstract 09/16/2025 External Device Data STL ABSTRACTION Provider, Abstract 08/26/2025 External Device Data STL ABSTRACTION Provider, Abstract 08/24/2025 7:50 AM CDT - 08/24/2025 11:59 PM CDT Hospital Encounter [facility] [address] [address] [facility] Discharge Disposition: [facility] 08/12/2025 External Device Data STL ABSTRACTION Provider, [...] on file Legal Sex Female 12:45 PM CHAIR SPRING ASSEMBLER Gender Identity Not on file Sexual Orientation [...] st Contact Info) Description 10/28/2025 12:45 PM CHAIR SPRING ASSEMBLER Appointment [facility] [address] [address] Health Maintenance Due Date Last [...] - Risk 50-74 years 1-dose series) 2008 OSTEOPOROSIS SCREENING 2023 Medicare Advantage ([place]) Preventative Visit/Annual Wellness Visit 11/20/2024 COVID-19 Vaccine ( - 2024-2 6 season) 2025 08/12/2024, 02/25/2021, 02/04/2021 DIABETES HBA1C Q 6 MONTHS 03/29/2026 09/29/2025 ZOSTER VACCINE Completed 11/25/2022, 09/22/2022 INFLUENZA VACCINE Completed 08/20/2025, , 09/03/2024, Additional history exists PNEUMOCOCCAL VACCINE 50+ YEARS Completed 1 , 01/29/2020, 11/09/[address] [place] [address] [facility] [id number] MEDICAID [place] Care Teams Health Safety Instructor Relationship Specialty Start Date End Date Art Rios MD [address] [place] [address] PCP - General Family Practice 04/07/13
--- OUTSIDE RECORDS SUMMARY | 2025-10-24 12:39 | XMS_ITS | Clinical Summary ---
Author Organization [facility] Address [address] [place] [address] Phone Care Team Providers Care Morale Officer Name Role Phone Art Rios MD Primary Care Provider [phone] Allergies Active Allergy Reactions Criticality Noted Date [...] on file Legal Sex Female 12:57 PM DISTILLERY MILLER HELPER Gender Identity Not on file Sexual Orientation Not on file Last Filed Vital Signs Vital Sign Reading Time Taken Comments Blood Pressure 162/95 01/05/2020 9:26 AM DISTILLERY MILLER HELPER Pulse - - Temperature 35.9 C (96.7 F) 01/05/2020 9:26 AM DISTILLERY MILLER HELPER Respiratory Rate 18 01/05/2020 9:26 AM DISTILLERY MILLER HELPER Oxygen Saturation 96% 01/05/2020 9:26 AM DISTILLERY MILLER HELPER Inhaled Oxygen Concentration - - Weight 143 kg (315 lb 3.2 oz) 01/05/2020 6:47 AM DISTILLERY MILLER HELPER Height 162.6 cm (5' 4 ) 01/05/2020 6:47 AM DISTILLERY MILLER HELPER Body Mass Index 54.1 01/05/2020 6:47 AM DISTILLERY MILLER HELPER Plan of Treatment Health Maintenance Due [...] 75+ series) 2033 Insurance CARE IMPROVEMENT PLUS [facility] [place] [id number] [facility] DUAL COMPLETE [facility] PPO D-SNP Care Teams Morale Officer Relationship Specialty Start Date End Date Art Rios MD [address] [place] [address] PCP - General Family Practice 04/07/13
--- OUTSIDE RECORDS SUMMARY | 2025-10-24 12:39 | XMS_ITS | Patient Health Record ---
Author Organization [facility] Address [address] [place] [address] Care Team Providers Care Media Arts Professor Name Role Phone FaustoGerri Unavailable [phone] Reason For Referral Reason Eval and Treat Diagnosis 1 Chronic pain (G89.29 ) Diagnosis 2 Obstructive sleep ap scarlett of adult (G47.33) Referred Organization [facility] Home Referred Provider Alice Lambert Referred Address [address] [facility],[place],[address], Referred Provider Specialty Pain Medicin e General Notes Rosemary Webber 11:17:44 AM CDT > atc, call will not go thru, Jo Ann Casarez 07/17/2025 11:47:46 AM CDT > ATC, call will not go thru., Rosemary Webber 08/04/2025 01:01:22 PM CDT > ATC, call will not go thru., Rosemary Webber 08/29/2025 12:18:06 PM CDT > call will not go through Referral Priority Routine Problems Problem Type SNOMED Code ICD Code Onset Dates Problem Status W/U Status Risk Notes Problem Chronic pain syndrome (312439736) Chronic pain syndrome (G89.4) Active confirmed Problem Obstructive sleep apnea of adult (5894818835463) Obstructive sleep apnea of adult (G47.33) Active confirmed Problem Chronic pain (97343366) Chronic pain (G89.29) Active confirmed Plan Of Treatment Next Appt Details Provider Name:Gerri Ross Esmer Hirsch, 11/18/2025 10:20:00 AM, [address] [place], [address], Insurance Providers Payer Name Payer Address Payer Phone Subscriber Number Group Number Insured Name Patient Relationship to Insured Coverage Start Date Coverage End Date [employer] Medicare Advantage PPO [address] [address] [place] [phone] [id number] Berenice Pierce Self - patient is the insured
--- OUTSIDE RECORDS SUMMARY | 2025-10-24 12:39 | XMS_ITS | Clinical Summary ---
Author Organization [facility], [facility] Address [address] [place] [address] Phone Care Team Providers Care Mattress Maker Name Role Phone Unavailable Primary Care Provider Unavailabl e Encounters Date Type Department Care Team Description 10/22/2025 Orders Only [facility] [employer] [address] [place] [address] Anirudh Su MD 10/20/2025 Orders Only [facility] [employer] [address] [place] [address] Anirudh Su MD 10/13/2025 Orders Only [facility] [address] [place] [address] Anirudh Su MD 10/13/[address] [facility] [employer] [address] [place] [address] Anirudh Su MD End stage renal disease; Dependence on renal dialysis 10/08/2025 Orders Only [facility] [address] [place] [address] Anirudh Su MD 10/06/2025 Telephone [facility] [employer] [address] [place] [address] Anirudh Su MD 10/03/[address] [facility] [employer] [address] [place] [address] Elizabeth Gongora NP End stage renal disease; Dependence on renal dialysis 09/29/2025 Orders Only [facility], [facility] [address] [place] [address] Anirudh Su MD 09/26/[address] [place] [address], [facility] [address] [place] [address] Jo Ann Young NP End stage renal disease; Dependence on renal dialysis 09/22/2025 Orders Only [facility], [facility] [address] [place] [address] Anirudh Su MD 09/17/[address] [place] [address], [facility] [address] [place] [address] Anirudh Su MD End stage renal disease; Dependence on renal dialysis 09/15/2025 [facility], [facility] [address] [place] [address] Anirudh Su MD 09/01/2025 Orders Only [facility], [facility] [address] [place] [address] Anirudh Su MD 08/29/[address] [place], [place] [address] [facility], [facility] [address] [place] [address] Elizabeth Gongora NP End stage renal disease; Dependence on renal dialysis 08/29/2025 [facility] in Dialysis Clinic [address] [place], [place] [address] [facility], [facility] [address] [place] [address] Elizabeth Gongora NP 08/13/[address] [place], [place] [address] [facility], [facility] [address] [place] [address] Aniurdh Su MD End stage renal disease; Dependence on renal dialysis 08/11/2025 Orders Only [facility], [facility] [address] [place] [address] Anirudh Su MD 08/04/2025 Orders Only [facility], [facility] [address] [place] [address] Anirudh Su MD 08/01/2025 Orders Only [facility], [facility] [address] [place] [address] Anirudh Su MD 08/01/[address] [facility], [facility] [address] [place] [address] Elizabeth Gongora NP End stage renal disease; Dependence on renal dialysis 07/28/2025 Orders Only [facility], [facility] [address] [place] [address] Anirudh Su MD from Last 3 Months Social History Tobacco [...] Visual Foot Exam 08/08/2020 Diabetes: Hemoglobin A1C 12/30/2025 025, 06/30/2025, 01/23/2025, Additional history exists Pneumococcal Vaccine: Peds ( 0 to 5 Years) and At-Risk Patients (6 to 49 Years) Discontinued 01/29/2020, 11/09/2012 Influenza Vaccine Completed 08/11/2025, , 09/22/2023, Additional history exists Procedures Procedure Name Priority Date/Time Associated Diagnosis Comments POST DIALYSIS BUN Routine 10/22/2025 BUN Routine 10/22/2025 [facility] RESULTS Routine 10/20/2025 HEMOGLOBIN Routine 10/20/2025 POST DIALYSIS BUN Routine 10/20/2025 BUN Routine 10/20/2025 HEMOGLOBIN Routine 10/13/2025 HEMOGLOBIN Routine 10/08/2025 [facility] RESULTS Routine 09/29/2025 HD KINETICS Routine 09/29/2025 CHEMISTRY Routine 09/29/2025 POST CHEMISTRY Routine 09/29/2025 TRACE ELEMENTS Routine 09/29/2025 SPECIAL CHEMISTRY Routine 09/29/2025 HEMATOLOGY Routine 09/29/2025 CHEMISTRY Routine 09/29/2025 HEMATOLOGY Routine 09/22/2025 [facility] RESULTS Routine 09/15/2025 HD KINETICS Routine 09/15/2025 POST CHEMISTRY Routine 09/15/2025 CHEMISTRY Routine 09/15/2025 HEMATOLOGY Routine 09/15/2025 CHEMISTRY Routine 09/01/2025 HEMATOLOGY Routine 09/01/2025 HEMATOLOGY Routine 08/11/2025 HEMATOLOGY Routine 08/04/2025 [facility] RESULTS Routine 08/01/2025 HD KINETICS Routine 08/01/2025 POST CHEMISTRY Routine 08/01/2025 CHEMISTRY Routine 08/01/2025 POST CHEMISTRY Routine 07/28/2025 HEMATOLOGY Routine 07/28/2025 CHEMISTRY Routine 07/28/2025 from Last 3 Months Results * Post Dialysis BUN (10/22/2025) Only the most recent of2 resultswithin the time period is included. BUN Post Dialysis 17 7 - 25 mg/dL [facility] 10/22/2025 10/22/2025 1:4 5 PM EXTENSION ASSOCIATE Narrative Resulting Agency Comment Performing Organization Information: Site ID: [place] Name: [facility] Address: [address] [place] [address] Director: Anisa Cabrera MD us Anirudh Su MD LAB BLOOD ORDERABLES Final Result [facility] [address] [place] [address] * (ABNORMAL) BUN (10/22/2025) Only the most recent of2 resultswithin the time period is included. BUN 52(H) 7 - 25 mg/dL [facility] 10/22/2025 10/22/2025 1:4 5 PM EXTENSION ASSOCIATE Narrative Resulting Agency Comment Performing Organization Information: Site ID: [place] Name: [facility] Address: [place] [address] Director: Anisa Cabrera MD Anirudh Su MD LAB BLOOD ORDERABLES Final Result Performing Organization Address City/[facility]/ZIP Co de Phone Number [facility] [address] * [facility] Lab Results (10/20/2025) Only the most recent of4 resultswithin the time period is included. eKt/V (Tattersall) 1.02 [facility] spKt/V (Daugirdas II) 1.18 [facility] WSTDKT/V 0.7 [facility] 10/20/2025 10/20/2025 [facility] [place] LAB BLOOD ORDERABLES Final Result Performing Organization Address [facility] Co de Phone Number [facility] Contact Performing lab Unknown, [place] * (ABNORMAL) Hemoglobin (10/20/2025) Only the most recent of3 resultswithin the time period is included. Pathologist [facility] Hemoglobin 10.5(L) 11.7 - 14.0 g/dL [facility] 10/20/2025 10/15/2025 5:5 6 AM EXTENSION ASSOCIATE Narrative Resulting Agency Comment Performing Organization Information: Site ID: [id number] Name: [facility] Address: [place] [address] Director: Anisa Cabrera MD Anirudh Su MD LAB BLOOD ORDERABLES Final Result Performing Organization Address City/[facility]/ZIP Co de Phone Number [facility] [address] * HD KINETICS (09/29/2025) Only the most recent of3 resultswithin the time period is included. % Urea Reduction 73 65 - 80 % [facility] 09/29/2025 10/01/2025 9:3 1 AM EXTENSION ASSOCIATE Narrative [facility] Unless otherwise specified, test(s) performed at: [facility], [address] [place] [address] BAD CREDIT COLLECTOR: Spencer Jerome M.D. For any questions, please call customer service at FREQUENCY:MONTHLY Resulting Agency Comment Specimen source: Plasma Anirudh Su MD LAB BLOOD ORDERABLES Final Result [facility] See order comments or contact performing lab Unknown, [place] * (ABNORMAL) SPECIAL CHEMISTRY (09/29/2025) Hemoglobin A1C 6.1(H) 4.8 - 5.9 % [facility] 09/29/2025 09/30/2025 9:5 7 AM EXTENSION ASSOCIATE Narrative Resulting Agency Comment Specimen source: Blood Result [facility] Anirudh Su MD LAB BLOOD BANK TEST O RDERABLES Final Result [facility] See order comments or contact performing lab Unknown, [place] * POST CHEMISTRY (09/29/2025) Only the most recent of4 resultswithin the time period is included. BUN Post Dialysis 16 6 - 19 mg/dL [facility] 09/29/2025 10/01/2025 9:3 1 AM EXTENSION ASSOCIATE Narrative [facility]25 Unless otherwise specified, test(s) performed at: [facility], [address] [place], [place] [id number] BAD CREDIT COLLECTOR: Spencer Jerome M.D. For any questions, please call customer service at FREQUENCY:MONTHLY Resulting Agency Comment Specimen source: Plasma Anirudh Su MD LAB BLOOD ORDERABLES Final Result [facility] See order comments or contact performing lab Unknown, [place] * TRACE ELEMENTS (09/29/2025) Pathologist [facility] Aluminum <5 0 - 10 mcg/L [facility] Comment: This test was developed and its performance characteristics determined by [facility]. It has not been cleared or approved by the FDA. The laboratory is regulated under CLIA as qualified to perform high complexity testing. This test is used for clinical purposes. It should not be regarded as investigational or for research. 09/29/2025 09/30/2025 9:4 5 AM EXTENSION ASSOCIATE Narrative [facility] - 09/30/2025 Unless otherwise specified, test(s) performed at: [facility], [address] [place] [address] BAD CREDIT COLLECTOR: Spencer Jerome M.D. For any questions, please call customer service at FREQUENCY:MONTHLY Resulting Agency Comment Specimen source: Serum Anirudh Su MD LAB BLOOD ORDERABLES Final Result Performing Organization Address City/[facility]/ZIP Co de Phone Number [facility] See order comments or contact performing lab Unknown, [place] * (ABNORMAL) HEMATOLOGY (09/29/2025) Only the most recent of7 resultswithin the time period is included. Pathologist [facility] Neutrophils 80.8(H) 40.0 - 75.0 % [facility] Lymphocytes Relative 9.9(L) 19.0 - 48.0 % [facility] Monocytes 4.6 3.0 - 10.0 % [facility] Eosinophils Relative 2.6 0.0 - 7.0 % [facility] Basophils Relative 0.9 0.0 - 1.5 % [facility] TAMIKO 1.3 0.0 - 4.0 % [facility] WBC 9.23 4.80 - 10.80 1000/mcL [facility] RBC 3.42(L) 4.20 - 5.40 mill/mcL [facility] Hematocrit 30.9(L) 37.0 - 47.0 % [facility] MCV 90 80 - 100 fl [facility] MCH 27.5 27.0 - 31.0 pg [facility] MCHC 30.3 30.0 - 36.0 g/dL [facility] RDW 19.6(H) 11.5 - 14.5 % [facility] Hemoglobin 9.4(L) 12.0 - 16.0 g/dL [facility] Hemoglobin x 3 28.2(L) 36.0 - 48.0 % [facility] Platelets 49(L) 130 - 400 1000/mcL [facility] Comment: Confirmed by slide review. 09/29/2025 09/30/2025 9:5 7 AM EXTENSION ASSOCIATE Narrative [facility] - 09/30/2025 Unless otherwise specified, test(s) performed at: [facility], [address] [place] [address] BAD CREDIT COLLECTOR: Spencer Jerome M.D. For any questions, please call customer service at FREQUENCY:MONTHLY Resulting Agency Comment Specimen source: Blood us Anirudh Su MD LAB BLOOD ORDERABLES Final Result [facility] See order comments or contact performing lab Unknown, [place] * (ABNORMAL) [facility] Chemistry (09/29/2025) Only the most recent of6 resultswithin the time period is included. BUN 59(H) 6 - 19 mg/dL [facility] Creatinine 8.15(H) 0.60 - 1.30 mg/dL [facility] BUN/Creatinine Ratio 7.2(L) 10.0 - 20.0 [facility] Sodium 136 136 - 145 mEq/L [facility] Potassium 5.5(H) 3.5 - 5.1 mEq/L [facility] Chloride 97 96 - 108 mEq/L [facility] Bicarbonate (CO2) 26 22 - 29 mEq/L [facility] Calcium 8.7 8.4 - 10.2 mg/dL [facility] Corrected Calcium 8.6 8.4 - 10.2 mg/dL [facility] Comment: Corrected Calcium is not equivalent to measured Ionized Calcium. Alkaline Phosphatase 178(H) 35 - 104 U/L [facility] Total Protein 7.4 6.0 - 8.5 g/dL [facility] Albumin 4.1 3.5 - 5.2 g/dL [facility] Globulin, Total 3.3 2.0 - 4.0 g/dL [facility] A/G Ratio 1.2 1.0 - 2.0 [facility] Magnesium 2.4 1.6 - 2.6 mg/dL [facility] Ferritin 877(H) 10 - 291 ng/mL [facility] Iron 48 30 - 160 mcg/dL [facility] UIBC 177 155 - 355 mcg/dL [facility] TIBC 225 185 - 515 mcg/dL [facility] Iron Saturation (TSat) 21 20 - 55 % [facility] Phosphorus 6.3(H) 2.6 - 4.5 mg/dL [facility] Calcium Phosphorus Product 55(H) 0 - 54 [facility] Calcium Phosporus Product, Cor 54 0 - 54 [facility] 09/29/2025 10/01/2025 11: 04 AM EXTENSION ASSOCIATE Luis Angel [facility] - 10/01/2025 Unless otherwise specified, test(s) performed at: [facility], [address] [place] [address] BAD CREDIT COLLECTOR: Spencer Jerome M.D. For any questions, please call customer service at FREQUENCY:MONTHLY Resulting Agency Comment Specimen source: Serum us Anirudh Su MD LAB BLOOD ORDERABLES Edited Result - Final [facility] See order comments or contact performing lab Unknown, [place] from Last [address] [place] [address] [address] [employer] [place]
--- OUTSIDE RECORDS SUMMARY | 2025-10-24 12:39 | XMS_ITS | Encounter Summary ---
Author Organization [facility], [facility] Address [address] [place] [address] Phone Care Team Providers Care Machine Presser Name Role Phone Unavailable Primary Care Provider Unavailabl e Encounter Details Date Type Department Care Team (Late st Contact Info) Description 10/20/2025 Orders Only [facility], [facility] [address] [place] [address] Anirudh Su MD [address] [place] [address] Social History Tobacco Use Types [...] Procedure Name Priority Date/Time Associated Diagnosis Comments [facility] LAB RESULTS Routine 10/20/2025 POST DIALYSIS BUN Routine 10/20/2025 HEMOGLOBIN Routine 10/20/2025 BUN Routine 10/20/2025 documented in this encounter Results * [facility] Lab Results (10/20/2025) eKt/V (Tattersall) 1.02 [facility] Center spKt/V (Daugirdas II) 1.18 [facility] WSTDKT/V 0.7 [facility] 10/20/2025 10/20/2025 [facility] Ordering Provider LAB BLOOD ORDERABLES Final Result [facility] Contact Performing lab Unknown, [place] * (ABNORMAL) Hemoglobin (10/20/2025) Hemoglobin 10.5(L) 11.7 - 14.0 g/dL [facility] 10/20/2025 10/15/2025 5:5 6 AM BOG CUTTER Narrative Resulting Agency Comment Performing Organization Information: Site ID: [id number] Name: [facility] Address: [address] [place] [address] Director: Anisa Cabrera MD Anirudh Su MD LAB BLOOD ORDERABLES Final Result Performing Organization Address City/[facility] Co de Phone Number [facility] [address] [place] [address] * (ABNORMAL) Post Dialysis BUN (10/20/2025) BUN Post Dialysis 33(H) 7 - 25 mg/dL [facility] 10/20/2025 10/15/2025 5:5 6 AM BOG CUTTER Narrative Resulting Agency Comment Performing Organization Information: Site ID: [place] Name: [facility] Address: [address] [place] [place] [address] Director: Anisa Cabrera MD Anirudh Su MD LAB BLOOD ORDERABLES Final Result [facility] [address] [place] [address] * (ABNORMAL) BUN (10/20/2025) BUN 92(H) 7 - 25 mg/dL [facility] 10/20/2025 10/15/2025 5:5 6 AM BOG CUTTER Narrative Resulting Agency Comment Performing Organization Information: Site ID: [place] Name: [facility] Address: [address] [place] [address] Director: Anisa Cabrera MD us Anirudh Su MD LAB BLOOD ORDERABLES Final Result [facility] [address] [place] [address] documented in this encounter Visit Diagnoses Not on filedocumented in this encounter
--- OUTSIDE RECORDS SUMMARY | 2025-10-24 12:39 | XMS_ITS | Encounter Summary ---
Author Organization [facility], [facility] Address [address] [place] [address] Phone Care Team Providers Care Environmental Safety Specialist Name Role Phone Unavailable Primary Care Provider Unavailabl e Encounter Details Date Type Department Care Team (Late st Contact Info) Description 08/29/2025 TCM in Dialysis Clinic [facility], [facility] [address] [place] [address] Elizabeth Grissom NP [address] [place] [address] Social History Tobacco Use Types [...] 08/29/2025 The patient was seen for a uypy-fx-rzoe visit as part of Transitional Care Management services. Attending Manager Site: [facility] Dialysis Location: [facility] Schedule: Shift: 1 INTERACTIVE CONTACT This uzvm-gj-ykhg visit occurred within 2 business days of the patient?s discharge. HOSPITALIZATION SUMMARY Patient transitioned from: Hospital Patient transitioned to: Home Admit Date: 08/24/2025 Discharge Date: 08/27/2025 Discharged info reviewed: No outstanding diagnostic tests and treatments Reason for admission: Patient admitted to [facility] 08/24-08/27. Missed dialysis x 1 week due [...] 05/11/2026 Heparin Sodium (Porcine) 1,000 Units/mL [facility] 35137 units IVP Every Treatment 05/02/2025 - 05/01/2026 [...] 97.4*F Current Dialysis Vitals BP Sit: 158/48 AP/RESPIRATORY CARE SPECIALIST: 187/168 Pulse: 57 CARE COORDINATION Post-discharge follow-up [...] Discussed bland foods. VISIT DIAGNOSES CPT Code 54237 - High complexity, seen within 7 days [...]
--- OUTSIDE RECORDS SUMMARY | 2025-10-24 12:39 | XMS_ITS | Encounter Summary ---
Author Organization [facility], [facility] Address [address] [place] [address] Phone Care Team Providers Care Tool And Die Inspector Name Role Phone Unavailable Primary Care Provider Unavailabl e Encounter Details Date Type Department Care Team (Late st Contact Info) Description 10/22/2025 Orders Only [facility], [facility] [address] [place] [address] Anirudh Su MD [address] [place] [address] Social History Tobacco Use Types [...] DIALYSIS BUN Routine 10/22/2025 BUN Routine 10/22/2025 documented in this encounter Results * Post Dialysis BUN (10/22/2025) BUN Post Dialysis 17 7 - 25 mg/dL [facility] 10/22/2025 10/22/2025 1:4 5 PM MEDICAL ACCOUNTS RECEIVABLE SPECIALIST Narrative Resulting Agency Comment Performing Organization Information: Site ID: [place] Name: [facility] Address: [address] [place] [address] [place] [address] Director: Anisa Cabrera MD us Anirudh Su MD LAB BLOOD ORDERABLES Final Result Performing Organization Address City/[facility]/ZIP Co de Phone Number [facility] [address] [place] [address] * (ABNORMAL) BUN (10/22/2025) BUN 52(H) 7 - 25 mg/dL [facility] 10/22/2025 10/22/2025 1:4 5 PM MEDICAL ACCOUNTS RECEIVABLE SPECIALIST Narrative Resulting Agency Comment Performing Organization Information: Site ID: [place] Name: [facility] Address: [address] [place] [address] Director: Anisa Cabrera MD us Anirudh Su MD LAB BLOOD ORDERABLES Final Result Performing Organization Address City/[facility]/ZIP Co de Phone Number [facility] [address] [place] [address] documented in this encounter Visit Diagnoses Not on filedocumented in this encounter
--- NOTE | 2025-10-24 12:48 | ECG_ITS ---
[facility]: 2025-10[facility]24 Pat Name: Berenice Pierce Department: Room: Gender: Female Wooden Box Maker: : 1960 Requested By: Benny Iverson Order Number: [id number] Pasquale MD: Christian Contreras M.D. Measurements Intervals [place] Rate: 58 P: 65 [place]: 183 QRS: -2 QRSD: 89 T: 11 QT: 465 QTc: 459 Interpretive Statements SINUS BRADYCARDIA POSSIBLE ANTERIOR MYOCARDIAL INFARCTION , OF INDETERMINATE AGE [30 ms Q WAVE IN V3/V4, OR R < 0.2 mV IN V4] Compared to ECG 10/15/2025 13:04:53 No significant changes Electronically Signed On 10-24-2025 18:48:45 SPINNING DOFFER by Christian Contreras M.D. [email or web address]
--- NOTE | 2025-10-24 12:56 | XR_ITS ---
WS: [id number] Exam: XR chest 1V portable [id number] Date/Time of Exam: 10/24/2025 1:24 PM Reason For Exam: sob Comparison 10/15/2025. There is cardiac enlargement with mild pulmonary vascular congestion. Slight improvement since the prior study. No pleural effusion. No pneumothorax. The mediastinum is normal in contour. A left-sided subclavian double lumen dialysis catheter in place extending into the lower one third of the SVC. Hardware in the T-spine. XR/XR chest 1V portable [id number] IMPRESSION: 1. Cardiac enlargement with mild pulmonary vascular congestion suggesting low-g rade CHF. There has been some improvement since the last study.
--- NOTE | 2025-10-24 13:00 | ED_ITS ---
Documented by User: KOURTNEY Carrillo 10/24/25 15:53 HPI - SOB/Dyspnea 2 General: Chief Complaint: Shortness of Breath/Dyspnea Stated Complaint: SOB Time Seen by Provider: 10/24/25 12:53 Source: patient Mode of arrival: wheelchair Limitations: no limitations History of Present Illness: HPI Narrative: Patient is a 65-year-old female with an extensive past medical history including chronic osteomyelitis, ESRD on dialysis, morbid obesity with a BMI of 44.6, obstructive sleep apnea, lumbar stenosis, diastolic heart failure, HTN, COPD chronically on oxygen, among others here for complaint of dyspnea. She states symptoms have been worsening over the past week or so. She reportedly was seen by her primary care yesterday and told that she has bilateral pneumonia . She reportedly contacted them today who told her to come to the emergency department for admission. She is not complaining of increased sputum production. She does feel like she has had to wear more oxygen than normal. She is complaining of orthopnea. She complains that dyspnea is worse with exertion. Reports feeling like I am drowning . She does have chronic lower extremity edema/lymphedema and has her legs wrapped-she states she gets this done by wound care in [place]. Patient states she was scheduled to have dialysis today but missed this appointment to come to the emergency department. Last echo was 12/2024 and was a poor study-no EF was reported. MD elicited complaint: shortness of breath Pertinent past history: congestive heart failure Onset (ago): day(s) Timing: constant Severity: moderate Exacerbating factors: lying flat and exertion Relieving factors: rest Known history of: congestive heart failure Associated symptoms: Deny abdominal pain, chest pain, fever(s), lightheadedness, palpitations or syncope Treatment prior to arrival: oxygen Related Data Home Medications ?Medication ?Instructions ?Recorded ?Confirmed albuterol sulfate 2.5 mg/3 mL 2.5 mg inhalation Q6H [place] N 12/25/24 10/24/25 (0.083 %) solution for nebulization Shortness Of Breat h calcitriol 0.25 mcg capsule 0.25 mcg PO DAILY 12/25/24 10/24/25 hydrocodone 7.5 mg-acetaminophen 1 - 2 tab PO .Q4-6H P RN Pain 12/25/24 10/24/25 325 mg tablet levothyroxine 112 mcg tablet 112 mcg PO DAILY 12/25/24 10/24/25 metoprolol tartrate 25 mg tablet 25 mg PO BID 12/25/24 10/24/25 ropinirole 0.25 mg tablet 0.25 mg PO TID 12/25/24 1204/13 vitamin B complex and vitamin C 1 cap PO DAILY 5 10/24/25 no.20-folic acid 1 mg capsule ([place] Caps) hydralazine 100 mg tablet 100 mg PO TID 08/25/2510/24 tizanidine 4 mg tablet 4 mg PO Q8H PRN Spasms 08/2510/24/25 torsemide 100 mg tablet 100 mg PO DAILY 08/25/2504/13 albuterol sulfate 90 mcg/actuation 2 puff inhalation Q 6H PRN 09/04/25 10/24/25 aerosol inhaler Shortness Of Breath Or Wheez ing budesonide 0.5 mg/2 mL suspension 0.5 mg inhalation BI D 10/24/25 10/24/25 for nebulization calcitriol 0.5 mcg capsule 0.5 mcg PO DAILY 10/24/25 1 12/25/24 ropinirole 0.5 mg tablet 0.5 mg PO TID 10/24/2510/24 Previous Rx's ?Medication ?Instructions ?Recorded amiodarone 200 mg tablet (Pacerone) 200 mg PO DAILY #3 0 tabs 08/27/25 apixaban 5 mg tablet (Eliquis) 5 mg PO BID@0900,2100 # 60 tabs 08/27/25 sevelamer carbonate 800 mg tablet 800 mg PO TID #90 ta bs 08/27/25 insulin glargine U-300 conc 300 5 unit (0.0167 mL) SUB CUT BEDTIME 09/12/25 unit/mL (3 mL) subcutaneous pen #1 mL (Toujeo Max U-300 SoloStar) insulin lispro 100 unit/mL See Rx Instructions .Route 09/12/25 subcutaneous solution (Humalog .COMPLEX #10 mL U-100 Insulin) Allergies Allergy/AdvReac Type Severity Reaction Status Date / Time bumetanide Allergy Unknown Unknown Verified 10/24/25 12:50 sulfamethoxazole (From Allergy Unknown Unknown Verified 10/24/25 12:50 Bactrim) trimethoprim (From Bactrim) Allergy Unknown Unknown Verified 10/24/25 12:50 ceftriaxone Allergy ALGY-Difficulty Verified 10/24/25 12:50 Breathing levofloxacin (From Levaquin) Allergy ADR-Itching Verified 10/24/25 12:50 NSAIDS (Non-Steroidal Allergy Unknown Verified 10/24/25 12:50 Anti-Inflamma Review of Systems 2 Const: Denies: fever(s), chills, body aches, fatigue or malaise Card: Reports: edema (chronic), swelling of feet/ankles (chronic) and dyspnea on exertion; Denies: chest pain, palpitations, lightheadedness, syncope or pre-syncope Resp: Reports: dyspnea; Denies: productive cough or non-productive cough GI: Denies: abdominal pain Musc: Reports: extremity swelling PFSH ED 2 PFSH: Medical History Missed dialysis Chronic osteomyelitis Infection of hemodialysis catheter ESRD on dialysis Chronic ulcer of right foot Poor intravenous access Elevated troponin Respiratory syncytial virus Uremia Headache detention (current) use of opiate analgesic Pain management contract signed Lumbar stenosis with neurogenic claudication Seizure PRES (posterior reversible encephalopathy syndrome) RLS (restless legs syndrome) TARA (obstructive sleep apnea) Chronic antibiotic suppression Staphylococcus epidermidis bacteremia Diastolic heart failure H/O staphylococcal septicemia Hyperglycemia Cellulitis Thyroid disease Chronic back pain HTN (hypertension) Obesity Surgical History 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 H/O: hysterectomy Arteriovenous fistula History of tonsillectomy History of cholecystectomy History of back surgery History of appendectomy History of adenoidectomy Family History Other Cancer Social History Smoking and tobacco/nicotine status: current every day tobacco/nicotine user Alcohol intake: never Substance/Drug Use: never Lives independently: Yes Household members: spouse Housing: House Marital status: Physical Exam 2 Const: COMMON NORMALS: patient oriented x3, no limitations and alert G ENERAL APPEARANCE: cooperative NUTRITIONAL APPEARANCE: obese morbidly obese (BMI 44.6) HENMT: COMMON NORMALS: normocephalic and atraumatic HEAD & SCALP: normal to inspection, normocephalic and atraumatic Neck/C-Spine: COMMON NORMALS: no JVD Resp: COMMON NORMALS: normal respiratory effort AUSCULTATION: crackles (bilateral R>L) OTHER: wearing 2.5L O2 currently but states she's had to wear closer to 3L over the past few days and more with any form of exertion Cardio: COMMON NORMALS: no JVD, regular rate and regular rhythm RATE: r egular rate RHYTHM: regular rhythm Extremity: NARRATIVE EXTREMITY EXAM: bilateral LE lymphedema-legs are wrapped; did not want me to remove these GENERAL: Yes normal exam except as noted Neuro: BR[place] COMA SCALE: document GCS findings [place] coma scale eye opening: Spontaneous [place] coma scale verbal response: Orientated [place] coma scale motor response: Obey commands [place] coma scale total score: 15 COMMON NORMALS: patient oriented x3 SENSORIUM/ORIENTATION: Yes alert Course 2 Consultations: Consultation #1: Dr. Martínez-accepts hospitalization Consultation #2: Spoke to our tele nephrology service-did not catch physician's name-but he will do tele visit with patient and consult on her/plan on dialysis Vital Signs: Vital signs: Vital Signs Temperature 98.0 F 10/25/25 04:00 Pulse Rate 62 10/25/25 04:00 Respiratory Rate 16 10/25/25 04:00 Blood Pressure 164/73 10/25/25 04:00 Pulse Oximetry 95 10/25/25 04:00 Oxygen Delivery Me thod Nasal Cannula 10/24/25 18:15 Oxygen Flow Rate 2 10/24/25 21:32 MDM - SOB/Dyspnea Medical Decision Making This is a 65-year-old female with multiple comorbidities here complaining of dyspnea-worsening over the past week or so. She was told by primary care she could have bilateral pneumonia however clinically she is presenting more like a CHF acute on chronic exacerbation. She reports requiring more oxygen than baseline and becoming dyspneic with exertion. Her CXR shows cardiac enlargement with pulmonary vascular congestion. Her BNP is almost 22,000 which is significantly higher than her baseline. She is complaining of orthopnea and feeling like she is drowning. She missed dialysis today so most likely will require this as an inpatient. She was given IV Lasix and will be admitted to the hospitalist. I have spoken to nephrology who will consult on her as well. Lab Data 10/25/25 04:14 10/25/25 04:14 Labs/Radiology: Radiology Impressions Chest X-Ray 10/24/25 12:56 IMPRESSION: 1. Cardiac enlargement with mild pulmonary vascular congestion suggesting low- grade CHF. There has been some improvement since the last study. Laboratory Results WBC 7.00 10^3/uL (3.29-11.43) 10/24/25 13:21 RBC 3.55 10^6/uL (3.85-5.65) L 10/24/25 13:21 Hgb 9.70 g/dL (11.27-16.99) L 10/24/25 13:21 Hct 31.6 % (36-47) L 10/24/25 13:21 MCV 89.0 fl (85-98) 10/24/25 13:21 MCH 27.3 pg (27-33) 10/24/25 13:21 MCHC 30.7 g/dL (30-55) 10/24/25 13:21 RDW 17.8 % (12.1-15.1) H 10/24/25 13:21 Plt Count 147 10^3/cmm (157-399) L 10/24/25 13:21 MPV 10.9 fL (7.4-10.4) H 10/24/25 13:21 Neut % (Auto) 79.3 % 10/24/25 13:21 Lymph % (Auto) 12.1 % 10/24/25 13:21 [place] % (Auto) 5.9 % 10/24/25 13:21 Eos % (Auto) 2.0 % 10/24/25 13:21 Baso % (Auto) 0.4 % 10/24/25 13:21 Neut # (Auto) 5.55 10^3/uL (1.8-7.7) 10/24/25 13:21 Lymph # (Auto) 0.9 10^3/uL (0.8-4.8) 10/24/25 13:21 [place] # (Auto) 0.4 10^3/uL (0.2-0.9) 10/24/25 13:21 Eos # (Auto) 0.1 10^3/uL (0.0-0.8) 10/24/25 13:21 Baso # (Auto) 0.0 10^3/uL (0.0-0.1) 10/24/25 13:21 Nucleated RBC % (auto) 0 % 10/24/25 13:21 Nucleated RBCs # 0.0 /100WBC 10/24/25 13:21 Sodium 138 mmol/L (136-145) 10/24/25 13:21 Potassium 4.4 mmol/L (3.5-5.1) 10/24/25 13:21 Chloride 97 mmol/L (98-107) L 10/24/25 13:21 Carbon Dioxide 25 mmol/L (22-29) 10/24/25 13:21 Anion Gap 20.4 (5-19) H 10/24/25 13:21 BUN 42 mg/dL (8-23) H 10/24/25 13:21 Creatinine 5.9 mg/dL (0.5-0.9) H* 10/24/25 13:21 GFR Calculation 7.1 mL/min (90-130) L 10/24/25 13:21 Glucose 174 mg/dL (65-115) H 10/24/25 13:21 Calculated Osmolality 301 mOsm/kg (285-295) H 10/24/25 13:21 Calcium 8.0 mg/dL (8.5-10.5) L 10/24/25 13:21 Phosphorus 6.6 mg/dL (2.5-4.5) H 10/24/25 13:21 Magnesium 2.2 mg/dL (1.7-2.3) 10/24/25 13:21 Total Bilirubin 0.4 mg/dL (0.15-1.2) 10/24/25 13:21 AST 16 U/L (0-32) 10/24/25 13:21 ALT 17 U/L (0-33) 10/24/25 13:21 Alkaline Phosphatase 162 U/L (35-105) H 10/24/25 13:21 Troponin T Baseline 100 ng/L (0-10) H 10/24/25 13:21 Troponin T 120 Minute 96.79 ng/L (0-10) H 10/24/25 15:14 Delta Troponin T -3.21 ABS# (0-10) L 10/24/25 15:14 NT-Pro-B Natriuret Pep 56259 pg/mL (0-125) H 10/24/25 13:21 Total Protein 6.8 g/dL (6.6-8.7) 10/24/25 13:21 Albumin 4.4 g/dL (3.5-5.2) 10/24/25 13:21 Globulin 2.4 g/dL (1.3-4.6) 10/24/25 13:21 Procalcitonin 0.45 ng/mL (0-0.5) 10/24/25 13:21 Influenza A (PCR) Negative (Negative) 10/24/25 14:05 Influenza Type B (PCR) Negative (Negative) 10/24/25 14:05 RSV (PCR) Negative (Negative) 10/24/25 14:05 SARS-CoV-2 (PCR) Negative (Negative) 10/24/25 14:05 All radiology interpretation(s) finalized by discharge Discharge Plan Discharge Patient Disposition: Admitted As Inpatient Admit Provider: Sara Martínez Clinical Impression: Acute exacerbation of congestive heart failure, End stage renal disease on dialysis Condition: Stable Coding Level of Care Code ED Device Engineer for Chg Fwd Documented by User: Benny Iverson MD 10/25/25 07:41 HPI - SOB/Dyspnea 2 General: Chief Complaint: Shortness of Breath/Dyspnea Stated Complaint: SOB Time Seen by Provider: 10/24/25 12:53 Related Data Home Medications ?Medication ?Instructions ?Recorded ?Confirmed albuterol sulfate 2.5 mg/3 mL 2.5 mg inhalation Q6H WY N 12/25/24 10/24/25 (0.083 %) solution for nebulization Shortness Of Breat h calcitriol 0.25 mcg capsule 0.25 mcg PO DAILY 12/25/24 10/24/25 hydrocodone 7.5 mg-acetaminophen 1 - 2 tab PO .Q4-6H P RN Pain 12/25/24 10/24/25 325 mg tablet levothyroxine 112 mcg tablet 112 mcg PO DAILY 12/25/24 10/24/25 metoprolol tartrate 25 mg tablet 25 mg PO BID 12/25/24 10/24/25 ropinirole 0.25 mg tablet 0.25 mg PO TID 12/25/24 12/04/13 vitamin B complex and vitamin C 1 cap PO DAILY 5 10/24/25 no.20-folic acid 1 mg capsule ([place] Caps) hydralazine 100 mg tablet 100 mg PO TID 08/25/2510/24 tizanidine 4 mg tablet 4 mg PO Q8H PRN Spasms 08/2510/24/25 torsemide 100 mg tablet 100 mg PO DAILY 08/25/2504/13 albuterol sulfate 90 mcg/actuation 2 puff inhalation Q 6H PRN 09/04/25 10/24/25 aerosol inhaler Shortness Of Breath Or Wheez ing budesonide 0.5 mg/2 mL suspension 0.5 mg inhalation BI D 10/24/25 10/24/25 for nebulization calcitriol 0.5 mcg capsule 0.5 mcg PO DAILY 10/24/25 1 12/25/24 ropinirole 0.5 mg tablet 0.5 mg PO TID 10/24/2510/24 Previous Rx's ?Medication ?Instructions ?Recorded amiodarone 200 mg tablet (Pacerone) 200 mg PO DAILY #3 0 tabs 08/27/25 apixaban 5 mg tablet (Eliquis) 5 mg PO BID@0900,2100 # 60 tabs 08/27/25 sevelamer carbonate 800 mg tablet 800 mg PO TID #90 ta bs 08/27/25 insulin glargine U-300 conc 300 5 unit (0.0167 mL) SUB CUT BEDTIME 09/12/25 unit/mL (3 mL) subcutaneous pen #1 mL (Toujeo Max U-300 SoloStar) insulin lispro 100 unit/mL See Rx Instructions .Route 09/12/25 subcutaneous solution (Humalog .COMPLEX #10 mL U-100 Insulin) Allergies Allergy/AdvReac Type Severity Reaction Status Date / Time bumetanide Allergy Unknown Unknown Verified 10/24/25 12:50 sulfamethoxazole (From Allergy Unknown Unknown Verified 10/24/25 12:50 Bactrim) trimethoprim (From Bactrim) Allergy Unknown Unknown Verified 10/24/25 12:50 ceftriaxone Allergy ALGY-Difficulty Verified 10/24/25 12:50 Breathing levofloxacin (From Levaquin) Allergy ADR-Itching Verified 10/24/25 12:50 NSAIDS (Non-Steroidal Allergy Unknown Verified 10/24/25 12:50 Anti-Inflamma PFSH ED 2 PFSH: Medical History Missed dialysis Chronic osteomyelitis Infection of hemodialysis catheter ESRD on dialysis Chronic ulcer of right foot Poor intravenous access Elevated troponin Respiratory syncytial virus Uremia Headache detention (current) use of opiate analgesic Pain management contract signed Lumbar stenosis with neurogenic claudication Seizure PRES (posterior reversible encephalopathy syndrome) RLS (restless legs syndrome) TARA (obstructive sleep apnea) Chronic antibiotic suppression Staphylococcus epidermidis bacteremia Diastolic heart failure H/O staphylococcal septicemia Hyperglycemia Cellulitis Thyroid disease Chronic back pain HTN (hypertension) Obesity Surgical History 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 H/O: hysterectomy Arteriovenous fistula History of tonsillectomy History of cholecystectomy History of back surgery History of appendectomy History of adenoidectomy Family History Other Cancer Social History Smoking and tobacco/nicotine status: current every day tobacco/nicotine user Alcohol intake: never Substance/Drug Use: never Lives independently: Yes Household members: spouse Housing: House Marital status: Physical Exam 2 Neuro: BRENT[place] COMA SCALE: document GCS findings [place] coma scale total score: 15 Course 2 Vital Signs: Vital signs: Vital Signs Temperature 98.0 F 10/25/25 04:00 Pulse Rate 62 10/25/25 04:00 Respiratory Rate 16 10/25/25 04:00 Blood Pressure 164/73 10/25/25 04:00 Pulse Oximetry 95 10/25/25 04:00 Oxygen Delivery Me thod Nasal Cannula 10/24/25 18:15 Oxygen Flow Rate 2 10/24/25 21:32 MDM - SOB/Dyspnea Medical Decision Making This is a 65-year-old female with multiple comorbidities here complaining of dyspnea-worsening over the past week or so. She was told by primary care she could have bilateral pneumonia however clinically she is presenting more like a CHF acute on chronic exacerbation. She reports requiring more oxygen than baseline and becoming dyspneic with exertion. Her CXR shows cardiac enlargement with pulmonary vascular congestion. Her BNP is almost 22,000 which is significantly higher than her baseline. She is complaining of orthopnea and feeling like she is drowning. She missed dialysis today so most likely will require this as an inpatient. She was given IV Lasix and will be admitted to the hospitalist. I have spoken to nephrology who will consult on her as well. Saw patient with above midlevel agree with history and physical patient has CHF exacerbation and will admit to hospitalist Lab Data 10/25/25 04:14 10/25/25 04:14 Labs/Radiology: Radiology Impressions Chest X-Ray 10/24/25 12:56 IMPRESSION: 1. Cardiac enlargement with mild pulmonary vascular congestion suggesting low- grade CHF. There has been some improvement since the last study. Laboratory Results WBC 7.00 10^3/uL (3.29-11.43) 10/24/25 13:21 RBC 3.55 10^6/uL (3.85-5.65) L 10/24/25 13:21 Hgb 9.70 g/dL (11.27-16.99) L 10/24/25 13:21 Hct 31.6 % (36-47) L 10/24/25 13:21 MCV 89.0 fl (85-98) 10/24/25 13:21 MCH 27.3 pg (27-33) 10/24/25 13:21 MCHC 30.7 g/dL (30-55) 10/24/25 13:21 RDW 17.8 % (12.1-15.1) H 10/24/25 13:21 Plt Count 147 10^3/cmm (157-399) L 10/24/25 13:21 MPV 10.9 fL (7.4-10.4) H 10/24/25 13:21 Neut % (Auto) 79.3 % 10/24/25 13:21 Lymph % (Auto) 12.1 % 10/24/25 13:21 [place] % (Auto) 5.9 % 10/24/25 13:21 Eos % (Auto) 2.0 % 10/24/25 13:21 Baso % (Auto) 0.4 % 10/24/25 13:21 Neut # (Auto) 5.55 10^3/uL (1.8-7.7) 10/24/25 13:21 Lymph # (Auto) 0.9 10^3/uL (0.8-4.8) 10/24/25 13:21 [place] # (Auto) 0.4 10^3/uL (0.2-0.9) 10/24/25 13:21 Eos # (Auto) 0.1 10^3/uL (0.0-0.8) 10/24/25 13:21 Baso # (Auto) 0.0 10^3/uL (0.0-0.1) 10/24/25 13:21 Nucleated RBC % (auto) 0 % 10/24/25 13:21 Nucleated RBCs # 0.0 /100WBC 10/24/25 13:21 Sodium 138 mmol/L (136-145) 10/24/25 13:21 Potassium 4.4 mmol/L (3.5-5.1) 10/24/25 13:21 Chloride 97 mmol/L (98-107) L 10/24/25 13:21 Carbon Dioxide 25 mmol/L (22-29) 10/24/25 13:21 Anion Gap 20.4 (5-19) H 10/24/25 13:21 BUN 42 mg/dL (8-23) H 10/24/25 13:21 Creatinine 5.9 mg/dL (0.5-0.9) H* 10/24/25 13:21 GFR Calculation 7.1 mL/min (90-130) L 10/24/25 13:21 Glucose 174 mg/dL (65-115) H 10/24/25 13:21 Calculated Osmolality 301 mOsm/kg (285-295) H 10/24/25 13:21 Calcium 8.0 mg/dL (8.5-10.5) L 10/24/25 13:21 Phosphorus 6.6 mg/dL (2.5-4.5) H 10/24/25 13:21 Magnesium 2.2 mg/dL (1.7-2.3) 10/24/25 13:21 Total Bilirubin 0.4 mg/dL (0.15-1.2) 10/24/25 13:21 AST 16 U/L (0-32) 10/24/25 13:21 ALT 17 U/L (0-33) 10/24/25 13:21 Alkaline Phosphatase 162 U/L (35-105) H 10/24/25 13:21 Troponin T Baseline 100 ng/L (0-10) H 10/24/25 13:21 Troponin T 120 Minute 96.79 ng/L (0-10) H 10/24/25 15:14 Delta Troponin T -3.21 ABS# (0-10) L 10/24/25 15:14 NT-Pro-B Natriuret Pep 72123 pg/mL (0-125) H 10/24/25 13:21 Total Protein 6.8 g/dL (6.6-8.7) 10/24/25 13:21 Albumin 4.4 g/dL (3.5-5.2) 10/24/25 13:21 Globulin 2.4 g/dL (1.3-4.6) 10/24/25 13:21 Procalcitonin 0.45 ng/mL (0-0.5) 10/24/25 13:21 Influenza A (PCR) Negative (Negative) 10/24/25 14:05 Influenza Type B (PCR) Negative (Negative) 10/24/25 14:05 RSV (PCR) Negative (Negative) 10/24/25 14:05 SARS-CoV-2 (PCR) Negative (Negative) 10/24/25 14:05 Discharge Plan Discharge Patient Disposition: Admitted As Inpatient Admit Provider: Sara Martínez Clinical Impression: Acute exacerbation of congestive heart failure, End stage renal disease on dialysis Condition: Stable Coding Level of Care Code ED Device Engineer for Aimee Gonzalez
[2025-10-24 13:31] LABS: Hematocrit 31.6 % (36-47); Hemoglobin 9.70 g/dL (11.27-16.99); Mean Corpuscular HGB Conc 30.7 g/dL (30-55); Mean Corpuscular Hemoglobin 27.3 pg (27-33); Mean Corpuscular Volume 89.0 fl (85-98); Nucleated Red Blood Cells % 0 %; Platelet Count 147 10^3/cmm (157-399); Red Blood Count 3.55 10^6/uL (3.85-5.65); White Blood Count 7.00 10^3/uL (3.29-11.43)
[2025-10-24 13:53] LABS: Troponin(5th) Baseline 100 ng/L (0-10)
[2025-10-24 14:01] LABS: NT Pro B Type Natriuretic Pept 21962 pg/mL (0-125); Procalcitonin 0.45 ng/mL (0-0.5)
[2025-10-24 14:12] LABS: Alanine Aminotransferase 17 U/L (0-33); Albumin Level 4.4 g/dL (3.5-5.2); Alkaline Phosphatase 162 U/L (35-105); Aspartate Amino Transferase 16 U/L (0-32); Chloride 97 mmol/L (98-107); Globulin 2.4 g/dL (1.3-4.6); Glucose 174 mg/dL (65-115); Potassium 4.4 mmol/L (3.5-5.1); Sodium 138 mmol/L (136-145); Total Protein 6.8 g/dL (6.6-8.7)
[2025-10-24 14:43] LABS: Anion Gap 20.4 (5-19); Blood Urea Nitrogen 42 mg/dL (8-23); Calcium 8.0 mg/dL (8.5-10.5); Carbon Dioxide 25 mmol/L (22-29); Magnesium 2.2 mg/dL (1.7-2.3); Osmolality Calculated 301 mOsm/kg (285-295)
[2025-10-24 14:51] LABS: Respiratory Syncytial Virus Ce NEGATIVE (Negative); SARS-CoV-2 PCR NEGATIVE (Negative)
--- NOTE | 2025-10-24 15:24 | ECG_ITS ---
[facility] Test Date: 2025-10-24 Pat Name: Berenice Pierce Department: Room: Gender: Female Pharmaceutical Development Technician: : 1960 Requested By: Lucía Stephens Order Number: [id number] Pasquale MD: Christian Contreras M.D. Measurements Intervals [place] Rate: 60 P: 85 TX: 183 QRS: -3 QRSD: 90 T: 29 QT: 460 QTc: 462 Interpretive Statements SINUS RHYTHM WITH OCCASIONAL SUPRAVENTRICULAR PREMATURE COMPLEXES POSSIBLE ANTERIOR MYOCARDIAL INFARCTION , PROBABLY OLD [30 ms Q WAVE IN V3/V4, OR R < 0.2 mV IN V4] Compared to ECG 10/24/2025 12:39:45 Sinus bradycardia no longer present Myocardial infarct finding still present Electronically Signed On 10-24-2025 18:48:32 CUSHION GUM APPLICATOR by Christian Contreras M.D. [email or web address]
[2025-10-24] MEDS: FUROsemide 10 mg/mL SDV 10mL 60 MG IVP (15:31)
[2025-10-24 15:37] LABS: Troponin 5 2HR 96.79 ng/L (0-10)
[2025-10-24 15:41] LABS: Troponin 5 2HR Delta -3.21 ABS# (0-10)
--- NOTE | 2025-10-24 15:51 | PC.NURSE ---
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 Pt reports not being able to use right arm so we put a pink band on the pts wrist. Pt states we are able to place an IV below the pink band in the hand since we were unable to get an IV in the left forearm.
--- NOTE | 2025-10-24 16:40 | P.HP_ITS ---
Providers/Chief Complaint 2 Admitting Physician: Sara Martínez MD Primary Care Provider: Radha Sherwood NP Chief Complaint: SOB History of Present Illness Berenice Pierce is a 65 year old female with PMH of HTN, pAF (on Eliquis AC), HFpEF, DM 2T, ESRD, diabetic foot ulcer, TARA, COPD, chronic hypoxic respiratory failure, hypothyroidism, lumbar stenosis. Patient presented to the ED on 10/24/2025 recommendations from her PCP, out of concern for pneumonia. Reports to have been seen by her PCP day prior with concern for pneumonia diagnosed via exam. No imaging done. Patient herself complains of progressive shortness of breath. Associated symptoms of a non- productive cough, pleuritic chest discomfort, orthopnea and increase in weight. Denies fever, chills, chest pain and palpitations. Reports to have been hospitalized ~6 weeks ago for similar symptoms and was subsequently discharged to a group home. Patient states that her breathing difficulties have persisted and are now worsening. Reports feeling like she can't breathe with drop in her oxygen saturation. On chronic supplemental oxygen with 2 L baseline. Reports increase in oxygen level from 2 to 3 L. Patient known to have underlying ESRD, on hemodialysis thrice weekly (MWF) at [place]. Her motion study engineer is Dr. Forbes. Dialyzes via left chest tunneled dialysis catheter. Notes prior failed AV fistulas (x2). Notes dry weight as 116 kg. Missed her dialysis today (Monday10/24/2025). Notes to have missed 2-3 dialysis treatment over past month due to follow-up medical appointments. Additional information Hospitalized 09/03/2025 - 09/12/2025 Hospitalized for bacteremia and right foot diabetic foot infection. Evaluated in ED 09/30/2025 -> discharged home Seen in the ED out of concern for dysuria / urinary symptoms, as well as progressive shortness of breath. Found to have rhonchi in RML/RLL on exam. However CXR did not show a clear consolidation. Discharged home with Macrobid for UTI and doxycycline empirically, for potential, pneumonia. Evaluated in ED 10/14/2025 -> discharged home Seen in ED after a fall from her wheelchair. Extensive imaging was done with no acute fractures identified. She was noted to have closed head injury along with left shoulder and elbow contusion without signs of fracture. ED work-up reviewed Labs 10/24/2025 1321 Inflammation/Infection PCT 0.45 Hemogram WBC 7.0 RBC 3.55 PLT 147 HGB 9.7 HCT 31.6 Chemistry Na 138 K 4.4 Cl 97 Ca 8.0 PO4 6.6 Glu 174 CO2 25 AG 20.4 BUN 42 Cr 5.9 eGFR 7.1 Liver AST 16 ALT 17 ALP 162 T.Bili 0.4 Alb 4.4 T.Protein 6.8 Cardiac HS Trop 100 -> 96.79 NT-proBNP 78169 Viral Studies Influenza A/B (-), RSV (-), COVID (-) EKG, 10/24/2025 1239, sinus bradycardia (v-rate 58) EKG, 10/24/2025 1524, sinus rhythm CXR: Cardiac enlargement with mild pulmonary vascular congestion suggesting low-grade CHF. Review of Systems 2 General: Reports: 10 or more systems reviewed and unremarkable except in HPI and below Medications/Allergies Home Medications ?Medication ?Instructions ?Recorded ?Confirmed ?Last Taken ?Type albuterol sulfate 2.5 mg/3 mL 2.5 mg inhalation Q6H NC N 12/25/24 10/24/25 08/20/25 18:00 History (0.083 %) solution for nebulization Shortness Of Breat h calcitriol 0.25 mcg capsule 0.25 mcg PO DAILY 12/25/24 10/24/25 09/03/25 05:00 History hydrocodone 7.5 mg-acetaminophen 1 - 2 tab PO .Q4-6H P RN Pain 12/25/24 10/24/25 10/24/25 History 325 mg tablet levothyroxine 112 mcg tablet 112 mcg PO DAILY 12/25/24 10/24/25 10/24/25 History metoprolol tartrate 25 mg tablet 25 mg PO BID 12/25/24 10/24/25 10/24/25 History ropinirole 0.25 mg tablet 0.25 mg PO TID 12/25/2404/1310/24/25 History vitamin B complex and vitamin C 1 cap PO DAILY 5 10/24/25 10/24/25 History no.20-folic acid 1 mg capsule (Hahira Caps) hydralazine 100 mg tablet 100 mg PO TID 08/25/2510/2410/24/25 History tizanidine 4 mg tablet 4 mg PO Q8H PRN Spasms 08/2510/24/25 10/24/25 History torsemide 100 mg tablet 100 mg PO DAILY 08/25/2504/1310/24/25 History amiodarone 200 mg tablet (Pacerone) 200 mg PO DAILY #3 0 tabs 08/27/25 10/24/25 10/24/25 Rx apixaban 5 mg tablet (Eliquis) 5 mg PO BID@0900,2100 # 60 tabs 08/27/25 10/24/25 09/03/25 Rx sevelamer carbonate 800 mg tablet 800 mg PO TID #90 ta bs 08/27/25 10/24/25 10/24/25 Rx albuterol sulfate 90 mcg/actuation 2 puff inhalation Q 6H PRN 09/04/25 10/24/25 Unknown History aerosol inhaler Shortness Of Breath Or Wheez ing insulin glargine U-300 conc 300 5 unit (0.0167 mL) SUB CUT BEDTIME 09/12/25 10/24/25 10/23/25 Rx unit/mL (3 mL) subcutaneous pen #1 mL (Toujeo Max U-300 SoloStar) insulin lispro 100 unit/mL See Rx Instructions .Route 09/12/25 10/24/25 10/24/25 Rx subcutaneous solution (Humalog .COMPLEX #10 mL U-100 Insulin) budesonide 0.5 mg/2 mL suspension 0.5 mg inhalation BI D 10/24/25 10/24/25 Unknown History for nebulization calcitriol 0.5 mcg capsule 0.5 mcg PO DAILY 10/24/25 1 12/25/24 Unknown History ropinirole 0.5 mg tablet 0.5 mg PO TID 10/24/2510/24 Unknown History Allergies Allergy/AdvReac Type Severity Reaction Status Date / Time bumetanide Allergy Unknown Unknown Verified 10/24/25 12:50 sulfamethoxazole (From Allergy Unknown Unknown Verified 10/24/25 12:50 Bactrim) trimethoprim (From Bactrim) Allergy Unknown Unknown Verified 10/24/25 12:50 ceftriaxone Allergy ALGY-Difficulty Verified 10/24/25 12:50 Breathing levofloxacin (From Levaquin) Allergy ADR-Itching Verified 10/24/25 12:50 NSAIDS (Non-Steroidal Allergy Unknown Verified 10/24/25 12:50 Anti-Inflamma PFSH Acute 2 PFSH: Medical History Missed dialysis Chronic osteomyelitis Infection of hemodialysis catheter ESRD on dialysis Chronic ulcer of right foot Poor intravenous access Elevated troponin Respiratory syncytial virus Uremia Headache prison (current) use of opiate analgesic Pain management contract signed Lumbar stenosis with neurogenic claudication Seizure PRES (posterior reversible encephalopathy syndrome) RLS (restless legs syndrome) TARA (obstructive sleep apnea) Chronic antibiotic suppression Staphylococcus epidermidis bacteremia Diastolic heart failure H/O staphylococcal septicemia Hyperglycemia Cellulitis Thyroid disease Chronic back pain HTN (hypertension) Obesity Surgical History 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 H/O: hysterectomy Arteriovenous fistula History of tonsillectomy History of cholecystectomy History of back surgery History of appendectomy History of adenoidectomy Family History Other Cancer Social History Smoking and tobacco/nicotine status: current every day tobacco/nicotine user Alcohol intake: never Substance/Drug Use: never Lives independently: Yes Household members: spouse Housing: House Marital status: Vitals/I&O/Wt Last Vital Signs Temp 97.9 F 10/24/25 12:33 Pulse 59 L 10/24/25 15:37 Resp 17 10/24/25 15:37 BP 136/53 10/24/25 15:37 Pulse Ox 96 10/24/25 15:37 O2 Del Method Nasal Cannula 10/24/25 15:37 O2 Flow Rate 2 10/24/25 14:42 10/24/25 10/24/25 10/24/25 06:59 14:59 22:59 Intake Total 0 / 0 Balance 0 / 0 Weight last 48 hrs Weight 117.934 kg Physical Exam 2 Narrative: Constitutional: NAD. Obese habitus. Neurorogic: Awake and alert. Oriented x3. No facial asymmetry, unilateral weakness or speech deficits. Head NC/AT Eyes PERRLA. EOMI. Sclera anicteric. ENT Normal external ears. Hearing intact to normal voice. Normal external nose. No epistaxis. MMM. Respiratory Crackles w/ expiratory wheeze. Dyspneic with prolonged conversation. No accessory muscle use. On supplemental oxygen. Heart / CV Regular. No murmur. Anterior Torso Left chest w/ tunneled dialysis catheter Extremities BLE edema Abdomen / GI Central obesity. Soft. NT. ND. +BS Genitourinary No calloway catheter Musculoskeletal Moves all extremities. (reports diminished overall mobility due to the diabetic foot ulcer) Skin: Right foot diabetic ulcer Data 10/24/25 13:21 10/24/25 13:21 Other Labs: I have personally reviewed below listed labs that were done in ED on presentation. Labs 10/24/2025 1321 Inflammation/Infection PCT 0.45 Hemogram WBC 7.0 RBC 3.55 PLT 147 HGB 9.7 HCT 31.6 Chemistry Na 138 K 4.4 Cl 97 Ca 8.0 PO4 6.6 Glu 174 CO2 25 AG 20.4 BUN 42 Cr 5.9 eGFR 7.1 Liver AST 16 ALT 17 ALP 162 T.Bili 0.4 Alb 4.4 T.Protein 6.8 Cardiac HS Trop 100 -> 96.79 NT-proBNP 65824 Viral Studies Influenza A/B (-), RSV (-), COVID (-) CXR: Radiologist's impression: Exam: XR chest 1V portable [id number] Date/Time of Exam: 10/24/2025 1:24 PM Reason For Exam: sob Comparison 10/15/2025. There is cardiac enlargement with mild pulmonary vascular congestion. Slight improvement since the prior study. No pleural effusion. No pneumothorax. The mediastinum is normal in contour. A left-sided subclavian double lumen dialysis catheter in place extending into the lower one third of the SVC. Hardware in the T-spine. Impression: * Cardiac enlargement with mild pulmonary vascular congestion suggesting low- grade CHF. There has been some improvement since the last study. EKG since admission: My Interpretation: EKG #1, 10/24/2025 1239, sinus bradycardia (v-rate 58) EKG #2, 10/24/2025 1524, sinus rhythm A&P Assessment and plan 1. Acute on chronic heart failure with preserved ejection fraction (HFpEF): 2. ESRD on dialysis: 3. Chronic respiratory failure: Plan: # [id number] HFpEF Most recent echo 12/27/2024: LVEF 68%. Trace MR. Valvular structures are not well-visualized. NT-proBNP 18981 Trop 100 -> 96.79 PCT 0.45 CXR: Cardiac enlargement with mild pulmonary vascular congestion suggesting low-grade CHF. Patient reports missed 2-3 HD treatments this month due to outpatient appointments Received 60 mg IV furosemide in ED (APARTMENT LEASING CONSULTANT on 100 mg torsemide QD) - Volume management with hemodialysis getting treatment tonight may need to discuss w/ nephrology extra HD treatment this hospital stay consider bumex IV 2.5 BID on her non-HD days (re-evaluate in am) - PCT borderline, will trend (not exhibiting overt sx of pneumonia) - Defer repeat echo at this time as she had one in the past year - Consider f/u cxr in 2 days - Daily weight - Strict I/O's - Diet: renal with 1.5L fluid restriction - CBC, CMP in am # ESRD on hemodialysis # Hyperphosphatemia Outpatient dialysis clinic: [place] Outpatient dialysis days: [facility] Primary motion study engineer: Vascular access: left subclavian TDC Last outpatient dialysis: 10/22/25 Last inpatient dialysis: 10/24/25 - Nephrology consulted - Receiving dialysis treatment - APARTMENT LEASING CONSULTANT on selevamer 800 mg TID, continue # Chronc respiratory failure w/ oxygen dependence # COPD Does not appear to be in an overt exacerbation Viral panel negative for Flu, RSV, COVID - DuoNeb Q6H (scheduled) # pAF Currently in SR - Continue APARTMENT LEASING CONSULTANT meds Amiodarone 200 mg daily Metoprolol to tartrate 25 mg BID Eliquis 5 mg BID # DM 2T w/ hyperglycemia - Glucose checks AC/HS - SSI low dose regimen - Hypoglycemia protocol # Diabetic foot ulcer (right foot) s/p skin graft # Hypothyroidism - APARTMENT LEASING CONSULTANT on levothyroxine 112 mcg daily, continue VTE PPx: SCDs, home eliquis resumed PDMP PDMP Reviewed: Not Reviewed Attestations 2 Medical Necessity Statement*: Admitted under observation status. Given complexity of patient's presentation, co-morbid conditions, and required intensity of treatment, a hospitalization exceeding two midnights is anticipated. Coding Level of Care Code 76933 Diagnoses Acute on chronic heart failure with preserved ejection fraction (HFpEF) I50.33 ESRD on dialysis N18.6; Z99.2 Chronic respiratory failure J96.10
[2025-10-24 19:37] LABS: Troponin 5 6HR 98.59 ng/L (0-10)
[2025-10-24 19:38] LABS: Troponin 5 6HR Delta -1.41 ng/L (0-12)
[2025-10-24] MEDS: heparin, porcine 1,000 unit/mL INJ 10 mL 10000 UNIT HE (20:00)
--- NOTE | 2025-10-24 20:32 | PM.CONSULT ---
Providers/Reason For Consult Consulting Physician/Specialty*: nephrology Reason for Consult*: esrd Requesting Physician: Dr Payne Attending Physician: William Diaz NP Primary Care Provider: Radha Sherwood NP History of Present Illness History of Present Illness Berenice Pierce is a 65 year old female HTN, afib, chf, dm2, copd, who presented to the ED on 10/24/2025 based on the recommendations of her PCP due to concern for pneumonia. She notes that she missed her HD treatment today and has been feeling sob for the last 3 days. Her cxr on presentation revealed pulmonary vascular congestion. Nephrology was consulted for further management of her HD. Review of Systems General: Reports: 10 or more systems reviewed and unremarkable except in HPI and below Medications/Allergies Home Medications ?Medication ?Instructions ?Recorded ?Confirmed ?Last Taken ?Type albuterol sulfate 2.5 mg/3 mL 2.5 mg inhalation Q6H PRN 12/25/24 10/24/25 08/20/25 18:00 History (0.083 %) solution for nebulization Shortness Of Breath calcitriol 0.25 mcg capsule 0.25 mcg PO DAILY 12/25/24 10/24/25 09/03/25 05:00 History hydrocodone 7.5 mg-acetaminophen 1 - 2 tab PO .Q4-6H PRN Pain 12/25/24 10/24/25 10/24/25 History 325 mg tablet levothyroxine 112 mcg tablet 112 mcg PO DAILY 12/25/24 10/24/25 10/24/25 History metoprolol tartrate 25 mg tablet 25 mg PO BID 12/25/24 10/24/25 10/24/25 History ropinirole 0.25 mg tablet 0.25 mg PO TID 12/25/24 10/24/25 10/24/25 History vitamin B complex and vitamin C 1 cap PO DAILY 12/25/24 10/24/25 10/24/25 History no.20-folic acid 1 mg capsule (Antoni Caps) hydralazine 100 mg tablet 100 mg PO TID 08/25/25 10/24/25 10/24/25 History tizanidine 4 mg tablet 4 mg PO Q8H PRN Spasms 08/25/25 10/24/25 10/24/25 History torsemide 100 mg tablet 100 mg PO DAILY 08/25/25 10/24/25 10/24/25 History amiodarone 200 mg tablet (Pacerone) 200 mg PO DAILY #30 tabs 08/27/25 10/24/25 10/24/25 Rx apixaban 5 mg tablet (Eliquis) 5 mg PO BID@0900,2100 #60 tabs 08/27/25 10/24/25 09/03/25 Rx sevelamer carbonate 800 mg tablet 800 mg PO TID #90 tabs 08/27/25 10/24/25 10/24/25 Rx albuterol sulfate 90 mcg/actuation 2 puff inhalation Q6H PRN 09/04/25 10/24/25 Unknown History aerosol inhaler Shortness Of Breath Or Wheezing insulin glargine U-300 conc 300 5 unit (0.0167 mL) SUBCUT BEDTIME 09/12/25 10/24/25 10/23/25 Rx unit/mL (3 mL) subcutaneous pen #1 mL (Toujeo Max U-300 SoloStar) insulin lispro 100 unit/mL See Rx Instructions .Route 09/12/25 10/24/25 10/24/25 Rx subcutaneous solution (Humalog .COMPLEX #10 mL U-100 Insulin) budesonide 0.5 mg/2 mL suspension 0.5 mg inhalation BID 10/24/25 10/24/25 Unknown History for nebulization calcitriol 0.5 mcg capsule 0.5 mcg PO DAILY 10/24/25 10/24/25 Unknown History ropinirole 0.5 mg tablet 0.5 mg PO TID 10/24/25 10/24/25 Unknown History Allergies Allergy/AdvReac Type Severity Reaction Status Date / Time bumetanide Allergy Unknown Unknown Verified 10/24/25 12:50 sulfamethoxazole (From Allergy Unknown Unknown Verified 10/24/25 12:50 Bactrim) trimethoprim (From Bactrim) Allergy Unknown Unknown Verified 10/24/25 12:50 ceftriaxone Allergy ALGY-Difficulty Verified 10/24/25 12:50 Breathing levofloxacin (From Levaquin) Allergy ADR-Itching Verified 10/24/25 12:50 NSAIDS (Non-Steroidal Allergy Unknown Verified 10/24/25 12:50 Anti-Inflamma PFSH Acute PFSH: Medical History Missed dialysis Chronic osteomyelitis Infection of hemodialysis catheter ESRD on dialysis Chronic ulcer of right foot Poor intravenous access Elevated troponin Respiratory syncytial virus Uremia Headache longterm (current) use of opiate analgesic Pain management contract signed Lumbar stenosis with neurogenic claudication Seizure PRES (posterior reversible encephalopathy syndrome) RLS (restless legs syndrome) TARA (obstructive sleep apnea) Chronic antibiotic suppression Staphylococcus epidermidis bacteremia Diastolic heart failure H/O staphylococcal septicemia Hyperglycemia Cellulitis Thyroid disease Chronic back pain HTN (hypertension) Obesity Surgical History 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 H/O: hysterectomy Arteriovenous fistula History of tonsillectomy History of cholecystectomy History of back surgery History of appendectomy History of adenoidectomy Family History Other Cancer Social History Smoking and tobacco/nicotine status: current every day tobacco/nicotine user Alcohol intake: never Substance/Drug Use: never Lives independently: Yes Household members: spouse Housing: House Marital status: Vitals/I&O/Wt Last Vital Signs Temp 97.3 F L 10/24/25 18:15 Pulse 60 10/24/25 18:15 Resp 19 H 10/24/25 18:15 BP 187/89 10/24/25 18:15 Pulse Ox 92 10/24/25 18:15 O2 Del Method Nasal Cannula 10/24/25 18:15 O2 Flow Rate 2 10/24/25 14:42 10/24/25 10/24/25 10/24/25 06:59 14:59 22:59 Intake Total 0 / 0 Balance 0 / 0 Weight last 48 hrs Weight 117.934 kg Physical Exam Narrative: GEN: nad, alert, conversant, on 2L o2 HEAD: normocephalic, atraumatic EYES: eomi, anicteric sclera HEENT: mmm NECK: no jvd CV: rrr LUNGS: diminished BS bilaterally ABD: obese, soft, nt, nd EXT: + lymphedema, no LE edema SKI: no rash NEURO: grossly normal Data 10/24/25 13:21 10/24/25 13:21 A&P Assessment and plan 1. End stage renal disease on dialysis: Plan: ESRD- she is on HD on a mwf is schedule. She is tolerating hd today with a goal uf of 3 L. I will reassess her respiratory status in the AM to determine her further hd needs acute on chronic hypoxic respiratory failure- i will plan on us with hd as tolerated essential hypertension- bp is elevated. i expect her bop control to improve with uf with hd anemia in ckd- she is on an outpatient eliceo and iron protocol. cont to monitor her hgb and transfuse as indicated PDMP PDMP Reviewed: Not Reviewed Consult Attestations Time Spent in Patient Care: 50 minutes Coding Level of Care Code Acute Code for Chg Fwd Diagnoses End stage renal disease on dialysis N18.6; Z99.2
--- NOTE | 2025-10-24 23:31 | PC.NURSE ---
notified Dr Uriarte re: pt had HD tonight 8pm-11pm, just got done w HD, pt leela well. pt asking MD for respiridol me for restless leg. MD notified and awaiting for order. Pt made aware of meds schedules and POC- pt verbalized good understanding of education given.
[2025-10-25] VITALS (10 sets, daily range): BP systolic 92–182; BP diastolic 60–77; PULSE 59–86; RESP 15–20; TEMP 36.3–36.8; O2SAT 91–95
--- NOTE | 2025-10-25 03:36 | PC.NURSE ---
PT AT -- [facility]
[2025-10-25 04:26] LABS: Hematocrit 32.1 % (36-47); Hemoglobin 9.70 g/dL (11.27-16.99); Mean Corpuscular HGB Conc 30.2 g/dL (30-55); Mean Corpuscular Hemoglobin 28.7 pg (27-33); Mean Corpuscular Volume 95.0 fl (85-98); Nucleated Red Blood Cells % 0 %; Platelet Count 120 10^3/cmm (157-399); Red Blood Count 3.38 10^6/uL (3.85-5.65); White Blood Count 6.10 10^3/uL (3.29-11.43)
[2025-10-25 04:47] LABS: Alanine Aminotransferase 16 U/L (0-33); Albumin Level 4.3 g/dL (3.5-5.2); Alkaline Phosphatase 160 U/L (35-105); Aspartate Amino Transferase 17 U/L (0-32); Blood Urea Nitrogen 25 mg/dL (8-23); Calcium 8.2 mg/dL (8.5-10.5); Carbon Dioxide 28 mmol/L (22-29); Chloride 99 mmol/L (98-107); Globulin 2.2 g/dL (1.3-4.6); Glucose 149 mg/dL (65-115); Osmolality Calculated 297 mOsm/kg (285-295); Sodium 140 mmol/L (136-145); Total Protein 6.5 g/dL (6.6-8.7)
[2025-10-25 04:50] LABS: Anion Gap 17.0 (5-19); Potassium 4.0 mmol/L (3.5-5.1)
[2025-10-25 05:33] LABS: Procalcitonin 0.43 ng/mL (0-0.5)
--- NOTE | 2025-10-25 10:03 | PM.DCS ---
Discharge Providers Date of Admission: 10/24/25 16:49 Date of Discharge: October 25, 2025 Attending Provider at Admission: Sara Martínez MD Attending Provider at Discharge: Diogenes Olvera MD Primary Care Provider: Radha Sherwood NP Diagnoses at Discharge Discharge Diagnosis 1. Fluid retention: 2. Acute exacerbation of congestive heart failure: 3. End stage renal disease on dialysis: 4. Type 2 diabetes mellitus: Reason for Visit Reason for Visit: SOB Brief History: Patient was admitted with complaint of difficulty breathing, found to be fluid-overloaded. Thought to have CHF exacerbation, IV Lasix was started. She got urgent dialysis, as nephrology was consulted, given severely abnormal kidney functions. Her blood sugar was controlled with the basal-prandial insulin. Other home medications were started for other ongoing chronic medical problems, as adjusted. Hospital Course Hospital Course The dialysis was able to remove about 2.5 L of fluid for patient, which led to remarkable improvement of symptoms. As of this morning, she reports being back to her baseline, and therefore requested for discharge. She is therefore discharged as requested. Physical Exam Narrative: General: Awake and alert patient. Resp: No obvious respiratory distress or difficulty breathing. Skin: No obvious rashes or new skin lesions. Extremities: Barely appreciated bilateral pitting pedal edema. All other physical findings essentially within normal limits. Discharge Data Studies Completed and Pending Completed Studies During Hospitalization Category Date Time Status XR chest 1V portable [id number] Urgent Exams 10/24/25 12:56 Completed Radiology Impressions Chest X-Ray 10/24/25 12:56 IMPRESSION: 1. Cardiac enlargement with mild pulmonary vascular congestion suggesting low-grade CHF. There has been some improvement since the last study. Laboratory Results WBC 6.10 10^3/uL (3.29-11.43) 10/25/25 04:14 RBC 3.38 10^6/uL (3.85-5.65) L 10/25/25 04:14 Hgb 9.70 g/dL (11.27-16.99) L 10/25/25 04:14 Hct 32.1 % (36-47) L 10/25/25 04:14 MCV 95.0 fl (85-98) D 10/25/25 04:14 MCH 28.7 pg (27-33) 10/25/25 04:14 MCHC 30.2 g/dL (30-55) 10/25/25 04:14 RDW 17.9 % (12.1-15.1) H 10/25/25 04:14 Plt Count 120 10^3/cmm (157-399) L 10/25/25 04:14 MPV 10.1 fL (7.4-10.4) 10/25/25 04:14 Neut % (Auto) 72.6 % 10/25/25 04:14 Lymph % (Auto) 16.6 % 10/25/25 04:14 [place] % (Auto) 7.7 % 10/25/25 04:14 Eos % (Auto) 2.0 % 10/25/25 04:14 Baso % (Auto) 0.8 % 10/25/25 04:14 Neut # (Auto) 4.43 10^3/uL (1.8-7.7) 10/25/25 04:14 Lymph # (Auto) 1.0 10^3/uL (0.8-4.8) 10/25/25 04:14 [place] # (Auto) 0.5 10^3/uL (0.2-0.9) 10/25/25 04:14 Eos # (Auto) 0.1 10^3/uL (0.0-0.8) 10/25/25 04:14 Baso # (Auto) 0.1 10^3/uL (0.0-0.1) 10/25/25 04:14 Nucleated RBC % (auto) 0 % 10/25/25 04:14 Nucleated RBCs # 0.0 /100WBC 10/25/25 04:14 Sodium 140 mmol/L (136-145) 10/25/25 04:14 Potassium 4.0 mmol/L (3.5-5.1) 10/25/25 04:14 Chloride 99 mmol/L (98-107) 10/25/25 04:14 Carbon Dioxide 28 mmol/L (22-29) 10/25/25 04:14 Anion Gap 17.0 (5-19) 10/25/25 04:14 BUN 25 mg/dL (8-23) H 10/25/25 04:14 Creatinine 4.5 mg/dL (0.5-0.9) H 10/25/25 04:14 GFR Calculation 9.7 mL/min (90-130) L 10/25/25 04:14 Glucose 149 mg/dL (65-115) H 10/25/25 04:14 POC Glucose 122 mg/dL (70-110) H 10/25/25 06:18 Calculated Osmolality 297 mOsm/kg (285-295) H 10/25/25 04:14 Calcium 8.2 mg/dL (8.5-10.5) L 10/25/25 04:14 Phosphorus 6.6 mg/dL (2.5-4.5) H 10/24/25 13:21 Magnesium 2.2 mg/dL (1.7-2.3) 10/24/25 13:21 Total Bilirubin 0.4 mg/dL (0.15-1.2) 10/25/25 04:14 AST 17 U/L (0-32) 10/25/25 04:14 ALT 16 U/L (0-33) 10/25/25 04:14 Alkaline Phosphatase 160 U/L (35-105) H 10/25/25 04:14 Troponin T Baseline 100 ng/L (0-10) H 10/24/25 13:21 Troponin T 120 Minute 96.79 ng/L (0-10) H 10/24/25 15:14 Delta Troponin T -3.21 ABS# (0-10) L 10/24/25 15:14 Troponin T Hi Sens 6Hr 98.59 ng/L (0-10) H 10/24/25 19:15 Troponin T Hi Sens 6Hr Delta -1.41 ng/L (0-12) L 10/24/25 19:15 NT-Pro-B Natriuret Pep 14520 pg/mL (0-125) H 10/24/25 13:21 Total Protein 6.5 g/dL (6.6-8.7) L 10/25/25 04:14 Albumin 4.3 g/dL (3.5-5.2) 10/25/25 04:14 Globulin 2.2 g/dL (1.3-4.6) 10/25/25 04:14 Procalcitonin 0.43 ng/mL (0-0.5) 10/25/25 04:14 Influenza A (PCR) Negative (Negative) 10/24/25 14:05 Influenza Type B (PCR) Negative (Negative) 10/24/25 14:05 RSV (PCR) Negative (Negative) 10/24/25 14:05 SARS-CoV-2 (PCR) Negative (Negative) 10/24/25 14:05 Vitals Last Vital Signs Temp 98.0 F 10/25/25 08:00 Pulse 64 10/25/25 08:11 Resp 16 10/25/25 08:11 BP 142/74 10/25/25 08:00 Pulse Ox 95 10/25/25 08:11 O2 Del Method Nasal Cannula 10/25/25 08:11 O2 Flow Rate 3 10/25/25 08:11 Discharge Plan Discharge Patient Disposition: Home Condition: Stable Prescriptions: Continued albuterol sulfate 2.5 mg /3 mL (0.083 %) solution for nebulization 2.5 mg inhalation Q6H PRN (Reason: Shortness Of Breath) ropinirole 0.25 mg tablet 0.25 mg PO TID hydrocodone-acetaminophen 7.5-325 mg tablet 1 - 2 tab PO .Q4-6H PRN (Reason: Pain) [place] Caps 1 mg capsule 1 cap PO DAILY calcitriol 0.25 mcg capsule 0.25 mcg PO DAILY Rx Instructions: take with 0.5mcg to=0.75mcg total levothyroxine 112 mcg tablet 112 mcg PO DAILY metoprolol tartrate 25 mg tablet 25 mg PO BID tizanidine 4 mg tablet 4 mg PO Q8H PRN (Reason: Spasms) torsemide 100 mg tablet 100 mg PO DAILY hydralazine 100 mg tablet 100 mg PO TID amiodarone [Pacerone] 200 mg Tablet 200 mg PO DAILY Qty: 30 0RF sevelamer carbonate 800 mg Tablet 800 mg PO TID Qty: 90 0RF Eliquis 5 mg Tablet 5 mg PO BID@0900,2100 Qty: 60 0RF albuterol sulfate 90 mcg/actuation HFA aerosol inhaler 2 puff INHALATION Q6H PRN (Reason: Shortness Of Breath Or Wheezing) insulin lispro [Humalog U-100 Insulin] 100 unit/mL Solution See Rx Instructions .ROUTE .COMPLEX Qty: 10 0RF Rx Instructions: Inject, subcut, 3 times daily, after meals, based on low-dose sliding scale insulin glargine U-300 conc [Toujeo Max U-300 SoloStar] 300 unit/mL (3 mL) insulin pen 5 unit SUBCUT BEDTIME Qty: 1 0RF calcitriol 0.5 mcg Capsule 0.5 mcg PO DAILY Rx Instructions: along with 0.25mcg to=0.75mcg total ropinirole 0.5 mg Tablet 0.5 mg PO TID budesonide 0.5 mg/2 mL suspension for nebulization 0.5 mg inhalation BID Rx Instructions: Order states for RT use only Speech And Language Assistant OK for DC: Nephrology Discharge Order = DC NOW: Discharge Order (Routine); Ordered 10/25/25 Ordered By: Diogenes Olvera Referrals: Radha Sherwood, STEFANY [Primary Care Provider, Unknown] Referral Note: We have notified your physician's clinic of the need for a follow-up appointment to be scheduled. If you have not heard from them within the next 2 business days, please call them directly. Discharge Diet: Usual diet, Cardiac and Diabetic Discharge Activity: Resume usual activity and Increase activity as tolerated Patient Instructions: Heart Failure (DC), CHF Stoplight, Opioid Safety, Patient Portal & Uzma Instructions Activity Restrictions/Additional Instructions: Follow up with your PCP within 1-2 weeks.as needed. Follow up with nephrology as scheduled. Discharge Attestations Time Spent in Discharge Care*: less than 30 min Status at Discharge: Cognitive status at discharge: cognitively intact, Behavioral status at discharge: cooperative, Quality Metrics Clinical Quality Measures [ No reported AMI, CVA or VTE this stay] Coding Level of Care Code Acute Code for Chg Fwd Diagnoses Fluid retention R60.9 Acute exacerbation of congestive heart failure I50.9 End stage renal disease on dialysis N18.6; Z99.2 Type 2 diabetes mellitus E11.9
--- NOTE | 2025-10-25 11:23 | P.PN_ITS ---
Subjective 2 Subjective: Patient is still complaining of sob and orthopnea on 3L o2. Medications: Reviewed: Yes Vitals/I&O/Wt Last Vital Signs Temp 98.0 F 10/25/25 08:00 Pulse 64 10/25/25 08:11 Resp 16 10/25/25 08:11 BP 142/74 10/25/25 08:00 Pulse Ox 95 10/25/25 08:11 O2 Del Method Nasal Cannula 10/25/25 08:11 O2 Flow Rate 3 10/25/25 08:11 10/24/25 10/25/25 10/25/25 22:59 06:59 14:59 Intake Total 240 / 240 1300 / 1540 240 / 240 Output Total 0 / 0 2968 / 2968 Balance 240 / 240 -1668 / -1428 240 / 240 Weight last 48 hrs Weight 121.563 kg Weight 121.6 kg Weight 117.934 kg Physical Exam 2 Narrative: GEN: nad, alert, conversant, on 3L o2 HEAD: normocephalic, atraumatic EYES: eomi, anicteric sclera HEENT: mmm NECK: no jvd CV: rrr LUNGS: diminished BS bilaterally ABD: obese, soft, nt, nd EXT: + lymphedema, no LE edema SKI: no rash NEURO: grossly normal Data 10/25/25 04:14 10/25/25 04:14 A&P Assessment and plan 1. ESRD on dialysis: Plan: ESRD- she is on HD on a mwf is schedule. She had hd yesterday with 2.5L; however, she is still sob and has orthopnea. I will plan on hd again today acute on chronic hypoxic respiratory failure- i will plan on uf again with hd as tolerated essential hypertension- bp is stable anemia in ckd- she is on an outpatient eliceo and iron protocol. cont to monitor her hgb and transfuse as indicated PDMP PDMP Reviewed: Not Reviewed Attestations 2 Medical Necessity Statement*: esrd Time Spent in Patient Care: 25 minutes Coding Level of Care Code Acute Code for Chg Fwd Diagnoses ESRD on dialysis N18.6; Z99.2
--- OUTSIDE RECORDS SUMMARY | 2025-10-25 14:11 | XMS_ITS | Clinical Summary ---
Author Organization [facility] Address 5 [facility] Attn: Epic Prelude ADT STEPHEN YATES [address] Care Team Providers Care Global Logistics Analyst Name Role Phone Art Rios MD Primary Care Provider [phone] Allergies Active Allergy Reactions Criticality Noted Date [...] Department Care Team Description 10/21/2025 12:45 PM INSPECTOR ALUMINUM BOAT - 10/21/2025 11:59 PM INSPECTOR ALUMINUM BOAT Hospital Encounter [facility] [address] [address] Syd Simms Jr., MD Discharge Disposition: Home or Self Care 10/15/2025 4:45 AM INSPECTOR ALUMIN[employer] BOAT - 10/15/2025 11:59 PM INSPECTOR ALUMINUM BOAT Hospital Encounter [facility] [address] [address] [facility] Discharge Disposition: Home or Self Care 10/07/2025 External Device Data STL ABSTRACTION Provider, Abstract 10/07/2025 External Device Data STL ABSTRACTION Provider, Abstract 10/07/2025 External Device Data STL ABSTRACTION Provider, Abstract 10/02/2025 1:26 PM INSPECTOR ALUMINUM BOAT - 10/02/2025 11:59 PM INSPECTOR ALUMINUM BOAT Hospital Encounter [address] [address] Syd Simms Jr., MD Discharge Disposition: Home or Self Care 09/23/2025 External Device Data STL ABSTRACTION Provider, Abstract 09/16/2025 External Device Data STL ABSTRACTION Provider, Abstract 09/16/2025 External Device Data STL ABSTRACTION Provider, Abstract 08/26/2025 External Device Data STL ABSTRACTION Provider, Abstract 08/24/2025 7:50 AM CDT - 08/24/2025 11:59 PM CDT Hospital Encounter [facility] [address] [address] [facility] Discharge Disposition: [facility] 08/12/2025 External Device Data STL ABSTRACTION Provider, [...] on file Legal Sex Female 12:45 PM INSPECTOR ALUMINUM BOAT Gender Identity Not on file Sexual Orientation [...] st Contact Info) Description 10/28/2025 12:45 PM INSPECTOR ALUMINUM BOAT Appointment [facility] [address] [address] Health Maintenance Due Date Last [...] years 1-dose series) 2008 OSTEOPOROSIS SCREENING 2023 COVID-19 Vaccine ( - 2024-2 6 season) 2025 08/12/2024, 02/25/2021, 02/04/2021 DIABETES HBA1C Q 6 MONTHS 03/29/2026 09/29/2025 ZOSTER VACCINE Completed 11/25/2022, 09/22/2022 INFLUENZA VACCINE Completed 08/20/2025, , 09/03/2024, Additional history exists PNEUMOCOCCAL VACCINE 50+ YEARS Completed 1 , 01/29/2020, 11/09/2012 Insurance [facility] [id number] [place] Care Teams Global Logistics Analyst Relationship Specialty Start Date End Date Art Rios MD [address] [place] [address] PCP - General Family Practice 04/07/13
--- OUTSIDE RECORDS SUMMARY | 2025-10-25 14:11 | XMS_ITS | Continuity of Care Document ---
Author Organization [place] Bakari OwenRusso [facility] Roberto Carlos Zapata, [facility] ([facility]) Address [address] [place] [address] Assessment Encounter Date Assessment Date Assessment LastModified by Organization Details LastModified Time 09/21/2025 09/21/2025 I reviewed hospital records prior to seeing the patient today. I have reviewed tests/procedur es and diagnoses during hospital stay. I have reviewed and noted mediations prior to admission as well as medication changes post admission. I have updated and reconciled medicaitons post discharge today and meds are updated in EMR. I have also educated patient about medication changes and current medications. Please see hpi above and chart for detailed records. I have addressed all patient questions today. They express verbal understanding. [email or web address] Not available 09/21/2025 14:27:26 Plan of Treatment Reminders Order Date Submit [...] and Address Organization Details Recorded Time Osteomyelitis 58736969 Active 2024 Maddy mckeon [facility] Roberto Carlos Zapata 5 11:03:12 Localized infection of skin AND/OR subcutaneous tissue 355632804 Active 2024 [facility] 11:03:47 Diabetic skin disorder Active 2024 Maddy mckeon [facility] 5 11:04:08 Type 2 diabetes mellitus 83365102 Active 2024 Maddy mckeon, [facility] 5 11:04:18 End-stage renal disease 75099958 Active 2024 Maddy Mathews linda, [facility] 5 11:04:27 Dependence on renal dialysis 332291894 Active 2024 Maddy Mathews null, [facility] 5 11:04:37 Acute respiratory failure 69735416 Active 2024 Maddyluis eduardo Barahonae linda, [facility] 5 11:04:51 Obstructive sleep apnea syndrome 72008699 Active 2024 Maddyluis eduardo Mathews null, [facility] 5 11:05:03 Obesity 492968526 Active 2024 Maddy Mathews null, [facility] 5 11:05:21 Diastolic heart failure 004784781 Active 2024 Maddy Mathews null, [facility] 5 11:05:33 Chronic ulcer of right foot Active 2024 Maddy Mathews null, [facility] 5 11:06:04 Bacteremia 0923225 Active 2024 Maddy Mathews null, [facility] 5 11:06:19 Essential hypertension 80446134 Active 2024 Maddy Mathews null, [facility] 5 11:07:30 Mild major depression, single episode 65185446 Active 2024 Maddy Mathews null, [facility] 5 11:06:38 Constipation 35148913 Active 2024 Maddy Mathews null, [facility] 11:06:53 Dyspnea 033201676 Active 2024 Maddy Mathews null, [facility] 5 11:07:06 Wheezing 39926421 Active 2024 Maddyluis eduardo Barahonae null, [facility] 5 11:07:17 Hypothyroidism 28820975 Active 2024 Maddy Mathews null, [facility] 5 11:07:46 Restless legs syndrome 46754449 Active 2024 Maddy Mathews null, [facility] 5 11:07:58 Pain 86942333 Active 2024 Maddy Mathews null, [facility] 5 11:08:10 Acute thoracic back pain 926511430 Active [address], [address], [facility] 5 15:01:26 Chronic pain 78622488 Active [address], [address], [facility] 5 15:01:33 Problem Notes None recorded. Medical Equipment None Reported. Allergies Allergen ID Allergen Name Allergen Category Reaction Reaction Severity Criticality Documentation Date Start Date Code Code System Note Provider Name and Address Organization Details Recorded Time 33420 piperacil travon / tazobacta m medicatio n Not available Not available unabletoasse ss 10/03/2025 11204 RxNorm Not Available joshua - External Data Service - prod 5 04:39:48 36043 levofloxa nguyễn medicatio n Not available Not available [facility] 10/03/2025 08206 RxNorm Not Available joshua - External Data Service - [facility] 5 04:39:48 37960 diphenhyd ramine medicatio n Not available Not available [facility] 10/03/2025 3498 RxNorm Not Available joshua - External Data Service - [facility] 5 04:39:48 36228 Non-stero idal anti-infl ammatory agent (substanc e) medicatio n Not available Not available [facility] 10/03/2025 75036 5008 SNOMED Not Available [facility] External Data Service - [facility] 5 04:39:48 93738 sulfameth oxazole / trimethop rim medicatio n Not available Not available [facility] 10/03/2025 21146 RxNorm Not Available joshua - External Data Service - [facility] 5 04:39:48 45687 bumetanid e medicatio n Not available Not available [facility] 10/03/2025 1808 RxNorm unrec ogniz ed react ion (text : Erupt ion (morp holog ic abnor malit y), code: [id number]) (from exter nal sourc e) Not Available joshua - External Data Service - [facility] 5 04:39:48 41335 Substance with sulfonami de structure and antibacte rial mechanism of action (substanc e) medicatio n Not available Not available Not available 10/03/20252024 00685 8003 SNOMED Not Available joshua - External Data Service - [facility] 5 04:41:11 86261 sulfameth oxazole medicatio n Not available Not available Not available 10/03/20252024 86984 RxNorm Not Available joshua - External Data Service - [facility] 5 04:41:54 62488 trimethop rim medicatio n Not available Not available Not available 10/03/20252024 13615 RxNorm Not Available joshua - External Data Service - prod 04:41:54 86544 ceftriaxo ne medicatio n Not available Not available Not available 10/03/20252024 2193 RxNorm Not Available [facility] External Data Service - [facility] 04:41:54 Medications Name Sig Start Date Stop [...] Not Available Not Available No t Available [employer] Caps 1 mg capsule Take 1 capsule [...] Address Organization Details Last Updated DateTime 5 180908. 24 g 44.1 kg/m2 162.56 cm 99 % 94 /min 20 /min 98.2 [degF] 106/68 mm[Hg] [facility] 5 11:02:01 Date Recorded Body height Body mass index (BMI) Body weight Oxygen saturation Heart rate Respiratory rate Body temperature Systolic And Diastolic Provider Name and Address Organization Details Last Updated DateTime 5 162.56 cm 45.4 kg/m2 906193. 79 g 98 % 50 /min 18 /min 98.2 [degF] 133/69 mm[Hg] [facility] 5 09:53:25 Date Recorded Body height Body mass index (BMI) Body weight Oxygen saturation Heart rate Respiratory rate Body temperature Systolic And Diastolic Provider Name and Address Organization Details Last Updated DateTime 5 162.56 cm 45.4 kg/m2 349736. 79 g 94 % 59 /min 20 /min 97.6 [degF] 99/76 mm[Hg] [facility] 5 08:35:29 Social History None recorded. Functional Status None recorded. Mental Status None recorded. Family History Nothing Reported. Medical History No medical history recorded. Gynecological HistoryNo gynecological history recorded. Obstetrics History GPAL:G 0 P 0 0 0 0 Immunizations Vaccine Type Date Status Note Provider Nam e and Address Organization Details Recorded Time Influenza, split virus, trivalent, preservative 4 completed Not Available [facility] 10/03/2025 08:28:38 Influenza, split virus, quadrivalent, PF 8 completed Not Available [facility] 10/03/2025 08:28:38 COVID-19, mRNA, LNP-S, PF, 30 mcg/0.3 mL dose 1 completed Not Available [facility] 10/03/2025 08:28:38 COVID-19, mRNA, LNP-S, PF, 30 mcg/0.3 mL dose 1 completed Not Available [facility] 10/03/2025 08:28:38 zoster recombinant 2 completed Not Available [facility] 10/03/2025 08:28:38 Influenza, split virus, trivalent, preservative 2 completed Not Available [facility] 10/03/2025 08:28:38 zoster recombinant 3 completed Not Available [facility] 10/03/2025 08:28:38 COVID-19, mRNA, LNP-S, PF, elsa-sucrose, 30 mcg/0.3 mL 4 completed Not Available [facility] 10/03/2025 08:28:38 Influenza, adjuvanted, trivalent, PF 4 completed Not Available [facility] 10/03/2025 08:28:38 Past Encounters Encounter ID Performer Location Encounter Start Date Encounter Closed Date Diagnosis/Indication Diagnosis SNOMED-CT Code Diagnosis ICD10 Code Diagnosis IMO Codes Diagnosis Note [id number] Khoa Verdugo DO [facility] ([facility]) [address] [place] [phone] 09/21/2025 10:33:09 10/21/2025 09:49:52 End-stage renal disease 70483854 N18.6 Z99.2 16681 09/21/25: Continue 3/wk dialysis in [facility], will monitor. Type 2 wan betes mellitus 81450315 E11.8 [id number] 09/21/25: Continue insulin and DM regimen, counseled on low sugar diet. A1c was 5.8 on 09/03/25. Osteomyelitis 45769794 M 86.9 [id number] 09/21/25: History of, ruled out on most recent hospital admission regarding right foot. Chronic ul cer of right foot [id number] 5277036 L97.619 [id number] 09/21/25: Scheduled with [facility] 10/02/25. Continue daily wound dressings here with Hydofera blue, continue Cefepime 3 days per week after dialysis through 10/08/25. Health Concerns Section Related Observation LastModified by Organization Detai ls LastModified Time None Recorded Concern Status LastModified by Organization Details LastModified Time None Recorded Payers Encounter Date Sequence Insurance Name Policy Number Policy Jensen Covered Member ID Jensen Member ID Guarantor Name 09/21/2025 1 [facility] (MEDICARE REPLACEMENT/A DVANTAGE - PPO) [id number] Berenice Pierce [id number] Berenice Pierce Notes Date Note Type Note Provider Name and Address Organization Details Recorded Time 09/21/2025 text/html ROS as noted in the HPI We are evaluating pt for new admission to [place] today, admitted 09/12/25. Admitted to [facility] 09/05-.Pmhx DM II, DM foot infections, ESRD on dialysis, TARA, HTN, COPD.Admitted to [facility] for concerns for severe right foot infection. Underwent right foot excisional debridement, cx showed pseudomonas, no osteomyelitis, Rx Cefepime 2g IV Mon/Mon/ Mon after dialysis. Hospitalization complicated by acute/ chronic resp failure from COPD. Dc'd on 2L n/c supplement O2. Concerns for Pneumonia. She received steroids inpt. Pt refusing dialysis in [place] ( won't let PICC line be placed, doesn't want poked anymore), goes to dialysis clinic Mon/ Mon/ Mon, receiving abx there.She is refusing Wound Care here, wanting to go [facility], orders have been written per Dr. Demarco, [...] with Hydrofera Blue to right foot per [place]. Khoa Verdugo, DO [address] [place] [address], [phone], [facility], [facility] 10/21/2025 08:19:23 09/26/2025 text/html ROS as noted in the HPI We are seeing pt in [place] today after fall last night. She fell [...] doesn't feel like going to the clinic. Khoameghna VerdugoDO [address] [place] [address], [phone], [facility] 10/20/2025 15:01:40 10/03/2025 text/html ROS as noted in the HPI We are seeing pt in [place] today for recheck of chronic pain. She is scheduled to go to dialysis today and is discharging home with her son. Seen in ER 10/01/25 for low O2 sat, O2 up to 94% after O2 applied. Returned with orders for Doxy and Macrobid for Pneumonia and UTI. She has been scheduling her own appts in [place] and [facility]. [place]. She has been dc'd from therapy.She is requiring no [facility] care. Khoameghna PeterDO rosa [address] [place] [address], [phone], [facility] 10/03/2025 10:13:17 OBGyn Episode No OBEpisode recorded.
--- OUTSIDE RECORDS SUMMARY | 2025-10-25 14:11 | XMS_ITS | Patient Health Record ---
Author Organization [facility] Address [address] [place] [address] Care Team Providers Care Mold Maker Plaster Name Role Phone FaustoGerri Unavailable [phone] Reason For Referral Reason Eval and Treat Diagnosis 1 Chronic pain (G89.29 ) Diagnosis 2 Obstructive sleep ap scarlett of adult (G47.33) Referred Organization [facility] Referred Provider Alice Lambert Referred Address [address] [facility],[place],[address], Referred Provider Specialty Pain Medicin e General [...] Status Risk Notes Problem Chronic pain syndrome (614970811) Chronic pain syndrome (G89.4) Active confirmed Problem Obstructive sleep apnea of adult (5178394059836) Obstructive sleep apnea of adult (G47.33) Active confirmed Problem Chronic pain (07343692) Chronic pain (G89.29) Active confirmed Plan Of Treatment Next Appt Details Provider Name:Gerri Ross Esmer Hirsch, 11/18/2025 10:20:00 AM, [address] [place], [address], Insurance Providers Payer Name Payer Address Payer Phone Subscriber Number Group Number Insured Name Patient Relationship to Insured Coverage Start Date Coverage End Date [employer] Medicare Advantage PPO [address] [address] [place] [phone] [id number] Berenice Pierce Self - patient is the insured
--- OUTSIDE RECORDS SUMMARY | 2025-10-25 14:12 | XMS_ITS | Continuity of Care Document ---
Author Organization [facility] Roberto Carlos Zapata, [facility] Address [address] [place] [address] Assessment No assessment recorded. Plan of Treatment Reminders Order Date Submit Date Provider Last Modified By Organization Details Last Modified Time Details Appointments None recorded. Lab None recorded. Referral None recorded. Procedures None recorded. Surgeries None recorded. Imaging None recorded. Medication Orders hydrocodone 10 mg-acetamin ophen 325 mg tablet [address] [place] [address] [facility], [address] [place] [address], [address], 5 11:12:23 Patient TargetsNo targets recorded. Patient InstructionsNo instructions recorded. Reason for Referral None Reported. Problems Name Problem SNOMED Code Status Onset Date Resolution Date Notes Provider Name and Address Organization Details Recorded Time Osteomyelitis 32317514 Active 2024 [facility] 11:03:12 Localized infection of skin AND/OR subcutaneous tissue 060954366 Active 2024 [facility] 5 11:03:47 Diabetic skin disorder Active 2024 [facility] 5 11:04:08 Type 2 diabetes mellitus 53887141 Active 2024 [facility] 5 11:04:18 End-stage renal disease 95295752 Active 2024 Maddyluis eduardo Mathews null, [facility] 5 11:04:27 Dependence on renal dialysis 358761743 Active 2024 Maddyluis eduardo Barahonae null, [facility] 5 11:04:37 Acute respiratory failure 97548318 Active 2024 Maddyluis eduardo Mathews null, [facility] 5 11:04:51 Obstructive sleep apnea syndrome 97462901 Active 2024 Maddy Mathews null, [facility] 5 11:05:03 Obesity 592117821 Active 2024 Maddy Mathews null, [facility] 5 11:05:21 Diastolic heart failure 976347187 Active 2024 Maddy Mathews null, [facility] 5 11:05:33 Chronic ulcer of right foot Active 2024 Maddy Mathews null, [facility] 5 11:06:04 Bacteremia 9493204 Active 2024 Maddy Mathews null, [facility] 5 11:06:19 Essential hypertension 42940414 Active 2024 Maddy Mathews null, [facility] 5 11:07:30 Mild major depression, single episode 19583445 Active 2024 Maddy Mathews null, [facility] 5 11:06:38 Constipation 06249136 Active 2024 Maddy Mathews null, [facility] 5 11:06:53 Dyspnea 967261204 Active 2024 Maddy mckeon, [facility] 5 11:07:06 Wheezing 71842916 Active 2024 Maddy Mathews null, [facility] 5 11:07:17 Hypothyroidism 25393154 Active 2024 Maddy Mathews null, [facility] 5 11:07:46 Restless legs syndrome 00193497 Active 2024 Maddyluis eduardo Barahonae null, [facility] 5 11:07:58 Pain 84097195 Active 2024 Maddy mckeon, [facility] 5 11:08:10 Acute thoracic back pain 574332077 Active [address], [address], [facility] 5 15:01:26 Chronic pain 11421646 Active [address], [address], [facility] 5 15:01:33 Problem Notes None recorded. Medical Equipment None Reported. Allergies Allergen ID Allergen Name Allergen Category Reaction Reaction Severity Criticality Documentation Date Start Date Code Code System Note Provider Name and Address Organization Details Recorded Time 02711 piperacil travon / tazobacta m medicatio n Not available Not available [facility] 10/03/2025 17723 RxNorm Not Available joshua - External Data Service - prod 04:39:48 83173 levofloxa nguyễn medicatio n Not available Not available [facility] 10/03/2025 17063 RxNorm Not Available joshua [employer] External Data Service - prod 11/14/202 5 04:39:48 26555 diphenhyd ramine medicatio n Not available Not available [facility] 10/03/2025 3498 RxNorm Not Available joshua - External Data Service - prod 5 04:39:48 91926 Non-stero idal anti-infl ammatory agent (substanc e) medicatio n Not available Not available [facility] 10/03/2025 04307 5008 SNOMED Not Available joshua - External Data Service - prod 5 04:39:48 35932 sulfameth oxazole / trimethop rim medicatio n Not available Not available [facility] 10/03/2025 99576 RxNorm Not Available joshua - External Data Service - prod 5 04:39:48 22653 bumetanid e medicatio n Not available Not available [facility] 10/03/2025 1808 RxNorm unrec ogniz ed react ion (text : Erupt ion (morp holog ic abnor malit y), code: [id number]) (from exter nal sourc e) Not Available joshua - [employer] Data Service - prod 5 04:39:48 46901 Substance with sulfonami de structure and antibacte rial mechanism of action (substanc e) medicatio n Not available Not available Not available 10/03/20252024 20622 8003 SNOMED Not Available joshua - External Data Service - prod 5 04:41:11 47106 sulfameth oxazole medicatio n Not available Not available Not available 10/03/20252024 94652 RxNorm Not Available joshua - External Data Service - prod 5 04:41:54 37049 trimethop rim medicatio n Not available Not available Not available 10/03/20252024 74432 RxNorm Not Available joshua - External Data Service - prod 5 04:41:54 83095 ceftriaxo ne medicatio n Not available Not available Not available 10/03/20252024 2193 RxNorm Not Available joshua - External Data Service - prod 5 04:41:54 Medications Name Sig Start Date [...] active Not Available Not Available Not Avai lablelia citalopram 20 mg tablet Take 1 tablet [...] Not Available Not Available No t Available [place] Caps 1 mg capsule Take 1 capsule [...] Updated DateTime 5 162.56 cm 45.4 kg/m2 759322. 79 g 98 % 50 /min 18 /min 98.2 [degF] 133/69 mm[Hg] Maddy Mathews [facility] 5 09:53:25 Date Recorded Body height Body mass index (BMI) Body weight Oxygen saturation Heart rate Respiratory rate Body temperature Systolic And Diastolic Provider Name and Address Organization Details Last Updated DateTime 5 162.56 cm 45.4 kg/m2 935365. 79 g 94 % 59 /min 20 /min 97.6 [degF] 99/76 mm[Hg] [facility] 5 08:35:29 Social History None recorded. Functional Status None recorded. Mental Status None recorded. Family History Nothing Reported. Medical History No medical history recorded. Gynecological HistoryNo gynecological history recorded. Obstetrics History GPAL:G 0 P 0 0 0 0 Immunizations Vaccine Type Date Status Note Provider Nam e and Address Organization Details Recorded Time Influenza, split virus, trivalent, preservative 4 completed Not Available [facility] 10/03/2025 08:28:38 Influenza, split virus, quadrivalent, PF 8 completed Not Available [facility] 10/03/2025 08:28:38 COVID-19, mRNA, LNP-S, PF, 30 mcg/0.3 mL dose 1 completed Not Available [facility] 10/03/2025 08:28:38 COVID-19, mRNA, LNP-S, PF, 30 mcg/0.3 mL dose 1 completed Not Available [facility] 10/03/2025 08:28:38 zoster recombinant 2 completed Not Available [facility] 10/03/2025 08:28:38 Influenza, split virus, trivalent, preservative 2 completed Not Available [facility] 10/03/2025 08:28:38 zoster recombinant 3 completed Not Available [facility] 10/03/2025 08:28:38 COVID-19, mRNA, LNP-S, PF, elsa-sucrose, 30 mcg/0.3 mL 4 completed Not Available [facility] 10/03/2025 08:28:38 Influenza, adjuvanted, trivalent, PF 4 completed Not Available [facility] 10/03/2025 08:28:38 Past Encounters Encounter ID Performer Location Encounter Start Date Encounter Closed Date Diagnosis/Indication Diagnosis SNOMED-CT Code Diagnosis ICD10 Code Diagnosis IMO Codes Diagnosis Note [id number] Khoa Verdugo DO [facility] [address] [place] [address] 09/21/2025 10:33:09 10/21/2025 09:49:52 End-stage renal disease 86031509 N18.6 Z99.2 63301 09/21/25: Continue 3/wk dialysis in [facility], will monitor. Type 2 wan betes mellitus 94711774 E11.8 5555861 09/21/25: Continue insulin and DM regimen, counseled on low sugar diet. A1c was 5.8 on 09/03/25. Osteomyelitis 67020027 M 86.9 30707052 09/21/25: History of, ruled out on most recent hospital admission regarding right foot. Chronic ul cer of right foot 9058397903 4052938 L97.658 [id number] 09/21/25: Scheduled with [facility] 10/02/25. Continue daily wound dressings here with Hydofera blue, continue Cefepime 3 days per week after dialysis through 10/08/25. [id number] Khoa Verdugo DO [facility] [address] [place] [address] 09/26/2025 09:49:26 10/21/2025 11:24:54 History of fall 487578096 Z91.81 6793886 End-stage renal disease 53639318 N18.6 [id number] 09/26/25: pt to attend dialysis today, will adjust pain medication to keep her comfortabl e while she is there. Pt agrees.09/21/25: Continue 3/wk dialysis in [facility], will monitor. Chronic pain 18892943 M5 4.59 09/26/25: Stop Hydrocodon e 7.5mg, start 10/325mg 1 PO q 4 hours PRN severe pain. Recheck next week, consider weaning Hydrocodon e. Acute thor acic back pain 142405709 M54.6 [id number] 09/26/25: Stop Hydrocodon e 7.5mg, start 10/325mg 1 PO q 4 hours PRN severe pain. Recheck next week, consider weaning Hydrocodon e. Health Concerns Section Related Observation LastModified by Organization Detai ls LastModified Time None Recorded Concern Status LastModified by Organization Details LastModified Time None Recorded Payers Encounter Date Sequence Insurance Name Policy Number Policy Jensen Covered Member ID Jensen Member ID Guarantor Name 09/26/2025 1 [facility] (MEDICARE REPLACEMENT/A DVANTAGE - PPO) [id number] Berenice Pierce [id number] Berenice Pierce Notes Date Note Type Note Provider Name and Address Organization Details Recorded Time 09/26/2025 text/html ROS as noted in the HPI We are seeing pt in [place] today after fall last night. She fell [...] doesn't feel like going to the clinic. Khoa Verdugo DO [address] [place] [address], [phone], [facility] 10/20/2025 15:01:40 10/03/2025 text/html ROS as noted in the HPI We are seeing pt in [place] today for recheck of chronic pain. She is scheduled to go to dialysis today and is discharging home with her son. Seen in ER 10/01/25 for low O2 sat, O2 up to 94% after O2 applied. Returned with orders for Doxy and Macrobid for Pneumonia and UTI. She has been scheduling her own appts in [place] [facility]. Home. She has been dc'd from therapy.She is requiring no intermediate care. Khoa Verdugo DO [address] [place] [address], [phone], [facility] 10/03/2025 10:13:17 OBGyn Episode No OBEpisode recorded.
--- OUTSIDE RECORDS SUMMARY | 2025-10-25 14:12 | XMS_ITS | Encounter Summary ---
Author Organization [facility], [facility] Address [address] [place] [address] Phone Care Team Providers Care Hide Cooking Operator Name Role Phone Unavailable Primary Care Provider Unavailabl e Encounter Details Date Type Department Care Team (Late st Contact Info) Description 10/22/2025 Orders Only [facility], [facility] [address] [place] [address] Anirudh Su MD [address] [place] [address] Social History Tobacco Use Types [...] Post Dialysis 17 7 - 25 mg/dL [facility] 10/22/2025 10/22/2025 1:4 5 PM HUMAN RESOURCES TRAINING MANAGER Narrative Resulting Agency Comment Performing Organization Information: Site ID: [place] Name: [facility] Address: [address] [place] [address] JULIANA Rojo [address] Director: Anisa Cabrera MD us Anirudh Su MD LAB BLOOD ORDERABLES Final Result Performing Organization Address City/[facility]/ZIP Co de Phone Number [facility] [address] [place] [address] * (ABNORMAL) BUN (10/22/2025) BUN 52(H) 7 - 25 mg/dL [facility] 10/22/2025 10/22/2025 1:4 5 PM HUMAN RESOURCES TRAINING MANAGER Narrative Resulting Agency Comment Performing Organization Information: Site ID: [place] Name: [facility] Address: [address] [place] [address] Director: Anisa Cabrera MD us Anirudh Su MD LAB BLOOD ORDERABLES Final Result Performing Organization Address City/[facility]/ZIP Co de Phone Number [facility] [address] [place] [address] documented in this encounter Visit Diagnoses Not on filedocumented in this encounter
--- OUTSIDE RECORDS SUMMARY | 2025-10-25 14:12 | XMS_ITS | Clinical Summary ---
[facility] Organization [facility] Address [address] [place] [address] Phone Care Team Providers Care Account Development Specialist Name Role Phone Art Rios MD Primary Care Provider [phone] Allergies Active Allergy Reactions Criticality Noted Date [...] on file Legal Sex Female 12:57 PM ASSISTANT COMMISSIONER Gender Identity Not on file Sexual Orientation Not on file Last Filed Vital Signs Vital Sign Reading Time Taken Comments Blood Pressure 162/95 01/05/2020 9:26 AM ASSISTANT COMMISSIONER Pulse - - Temperature 35.9 C (96.7 F) 01/05/2020 9:26 AM ASSISTANT COMMISSIONER Respiratory Rate 18 01/05/2020 9:26 AM ASSISTANT COMMISSIONER Oxygen Saturation 96% 01/05/2020 9:26 AM ASSISTANT COMMISSIONER Inhaled Oxygen Concentration - - Weight 143 kg (315 lb 3.2 oz) 01/05/2020 6:47 AM ASSISTANT COMMISSIONER Height 162.6 cm (5' 4 ) 01/05/2020 6:47 AM ASSISTANT COMMISSIONER Body Mass Index 54.1 01/05/2020 6:47 AM ASSISTANT COMMISSIONER Plan of Treatment Health Maintenance Due Date [...] 75+ series) 2033 Insurance CARE IMPROVEMENT PLUS [facility] MD ISHMAEL [id number] [facility] DUAL COMPLETE [facility] PPO D-SNP Care Teams Account Development Specialist Relationship Specialty Start Date End Date Art Rios MD [address] [place] [address] PCP - General Family Practice 04/07/13
--- OUTSIDE RECORDS SUMMARY | 2025-10-25 14:12 | XMS_ITS | Continuity of Care Document ---
Author Organization [facility] Roberto Carlos Zapata, [facility] ([facility]) Address [address] [place] [address] Assessment Encounter Date Assessment Date Assessment LastModified by Organization Details LastModified Time 10/03/2025 10/03/2025 Pt discharging home with son after dialysis today. [email or web address] Not available 10/03/2025 10:12:54 Plan of Treatment [...] and Address Organization Details Recorded Time Osteomyelitis 91038960 Active 2024 [facility] 11:03:12 Localized infection of skin AND/OR subcutaneous tissue 862025417 Active 2024 Maddy mckeon [facility]audioCClaudio 5 11:03:47 Diabetic skin disorder Active 2024 [facility] 11:04:08 Type 2 diabetes mellitus 63003501 Active 2024 [facility]on [facility] 5 11:04:18 End-stage renal disease 88806327 Active 2024 Maddy mckeon [facility] 5 11:04:27 Dependence on renal dialysis 753479737 Active 2024 Maddy mckeon, [facility] 11:04:37 Acute respiratory failure 47808632 Active 2024 Maddy mckeon, [facility] 11:04:51 Obstructive sleep apnea syndrome 53872626 Active 2024 Maddy Barahonae null, [facility] 11:05:03 Obesity 422732884 Active 2024 Maddy Barahonae null, [facility] 11:05:21 Diastolic heart failure 122054928 Active 2024 Maddy Mathews null, [facility] 11:05:33 Chronic ulcer of right foot Active 2024 Maddyluis eduardo Barahonae null, [facility] 11:06:04 Bacteremia 1321504 Active 2024 Maddy Mathews null, [facility] 11:06:19 Essential hypertension 92804275 Active 2024 Maddyluis eduardo Mathews null, [facility] 11:07:30 Mild major depression, single episode 83794412 Active 2024 Maddyluis eduardo Barahonae null, [facility] 11:06:38 Constipation 96497539 Active 2024 Maddy Mathews null, [facility] 11:06:53 Dyspnea 747203782 Active 2024 Maddy Mathews null, [facility] 5 11:07:06 Wheezing 33050896 Active 2024 Maddy Mathews null, [facility] 5 11:07:17 Hypothyroidism 88137343 Active 2024 Maddy Mathews null, [facility] 5 11:07:46 Restless legs syndrome 95496813 Active 2024 Maddy Mathews null, [facility] 5 11:07:58 Pain 04558853 Active 2024 Maddy Mathews null, [facility] 5 11:08:10 Acute thoracic back pain 913763856 Active [address], [address], [facility] 5 15:01:26 Chronic pain 97011156 Active [address], [address], [facility] 5 15:01:33 Problem Notes None recorded. Medical Equipment None Reported. Allergies Allergen ID Allergen Name Allergen Category Reaction Reaction Severity Criticality Documentation Date Start Date Code Code System Note Provider Name and Address Organization Details Recorded Time 55491 piperacil travon / tazobacta m medicatio n Not available Not available unabletoasse 10/03/2025 81510 RxNorm Not Available joshua - External Data Service - prod 5 04:39:48 00018 levofloxa nguyễn medicatio n Not available Not available unabletoasse 10/03/2025 36712 RxNorm Not Available joshua - External Data Service - prod 04:39:48 83009 diphenhyd ramine medicatio n Not available Not available [facility] 10/03/2025 3498 RxNorm Not Available joshua - External Data Service - prod 5 04:39:48 57432 Non-stero idal anti-infl ammatory agent (substanc e) medicatio n Not available Not available [facility] 10/03/2025 34796 5008 SNOMED Not Available joshua - External Data Service - prod 5 04:39:48 98402 sulfameth oxazole / trimethop rim medicatio n Not available Not available [facility] 10/03/2025 67742 RxNorm Not Available joshua - External Data Service - prod 5 04:39:48 87106 bumetanid e medicatio n Not available Not available [facility] 10/03/2025 1808 RxNorm unrec ogniz ed react ion (text : Erupt ion (morp holog ic abnor malit y), code: [id number]) (from exter nal sourc e) Not Available joshua - External Data Service - prod 5 04:39:48 71888 Substance with sulfonami de structure and antibacte rial mechanism of action (substanc e) medicatio n Not available Not available Not available 10/03/20252024 43230 8003 SNOMED Not Available joshua - External Data Service - prod 5 04:41:11 68267 sulfameth oxazole medicatio n Not available Not available Not available 10/03/20252024 58992 RxNorm Not Available joshua - External Data Service - prod 5 04:41:54 08974 trimethop rim medicatio n Not available Not available Not available 10/03/20252024 40712 RxNorm Not Available joshua - External Data Service - prod 5 04:41:54 07884 ceftriaxo ne medicatio n Not available Not available Not available 10/03/20252024 2193 RxNorm Not Available joshua [employer] External Data Service - prod 5 04:41:54 [...] Not Available Not Available No t Available Antoni Caps 1 mg capsule Take 1 capsule [...] Updated DateTime 5 162.56 cm 45.4 kg/m2 284196. 79 g 94 % 59 /min 20 /min 97.6 [degF] 99/76 mm[Hg] Maddy Mathews [facility] 5 08:35:29 Social History None recorded. Functional Status None recorded. Mental Status None recorded. Family History Nothing Reported. Medical History No medical history recorded. Gynecological HistoryNo gynecological history recorded. Obstetrics History GPAL:G 0 P 0 0 0 0 Immunizations Vaccine Type Date Status Note Provider Nam e and Address Organization Details Recorded Time Influenza, split virus, trivalent, preservative 4 completed Not Available [facility] 10/03/2025 08:28:38 Influenza, split virus, quadrivalent, PF 8 completed Not Available [facility] 10/03/2025 08:28:38 COVID-19, mRNA, LNP-S, PF, 30 mcg/0.3 mL dose 1 completed Not Available [facility] 10/03/2025 08:28:38 COVID-19, mRNA, LNP-S, PF, 30 mcg/0.3 mL dose 1 completed Not Available [facility] 10/03/2025 08:28:38 zoster recombinant 2 completed Not Available [facility] 10/03/2025 08:28:38 Influenza, split virus, trivalent, preservative 2 completed Not Available [facility] 10/03/2025 08:28:38 zoster recombinant 3 completed Not Available [facility] 10/03/2025 08:28:38 COVID-19, mRNA, LNP-S, PF, elsa-sucrose, 30 mcg/0.3 mL 4 completed Not Available [facility] 10/03/2025 08:28:38 Influenza, adjuvanted, trivalent, PF 4 completed Not Available [facility] 10/03/2025 08:28:38 Past Encounters Encounter ID Performer Location Encounter Start Date Encounter Closed Date Diagnosis/Indication Diagnosis SNOMED-CT Code Diagnosis ICD10 Code Diagnosis IMO Codes Diagnosis Note [id number] Khoa Verdugo DO [facility] ([facility]) [address] [place] [address] 09/21/2025 10:33:09 10/21/2025 09:49:52 End-stage renal disease 32705932 N18.6 Z99.2 03075 09/21/25: Continue 3/wk dialysis in [facility], will monitor. Type 2 wan betes mellitus 35214500 E11.8 9252543 09/21/25: Continue insulin and DM regimen, counseled on low sugar diet. A1c was 5.8 on 09/03/25. Osteomyelitis 59690714 M 86.9 07754672 09/21/25: History of, ruled out on most recent hospital admission regarding right foot. Chronic ul cer of right foot 0179021648 9120368 L97.839 [id number] 09/21/25: Scheduled with [facility] 10/02/25. Continue daily wound dressings here with Hydofera blue, continue Cefepime 3 days per week after dialysis through 10/08/25. [id number] Khoa Verdugo DO [facility] ([facility]) [address] [place] [address] 09/26/2025 09:49:26 10/21/2025 11:24:54 History of fall 226700797 Z91.81 [id number] End-stage renal disease 78632212 N18.6 21249 09/26/25: pt to attend dialysis today, will adjust pain medication to keep her comfortabl e while she is there. Pt agrees.09/21/25: Continue 3/wk dialysis in [facility], will monitor. Chronic pain 64389450 M5 4.59 09/26/25: Stop Hydrocodon e 7.5mg, start 10/325mg 1 PO q 4 hours PRN severe pain. Recheck next week, consider weaning Hydrocodon e. Acute thor acic back pain 693628564 M54.6 [id number] 09/26/25: Stop Hydrocodon e 7.5mg, start 10/325mg 1 PO q 4 hours PRN severe pain. Recheck next week, consider weaning Hydrocodon e. [id number] Khoa Verdugo DO [facility] ([facility]) [address] [place] [address] 10/03/2025 08:28:30 10/07/2025 10:58:10 End-stage renal disease 45594987 N18.6 [id number] 09/26/25: pt to attend dialysis today, will adjust pain medication to keep her comfortabl e while she is there. Pt agrees.09/21/25: Continue 3/wk dialysis in [facility], will monitor. Chronic pain 96502937 M5 4.59 09/26/25: Stop Hydrocodon e 7.5mg, start 10/325mg 1 PO q 4 hours PRN severe pain. Recheck next week, consider weaning Hydrocodon e. Pneumonia 135974811 J18. 9 [id number] Continue Doxy. Acute urin ev tract infection 316923395 N39.0 368215 Continue Macrobid. Health Concerns Section Related Observation LastModified by Organization Detai ls LastModified Time None Recorded Concern Status LastModified by Organization Details LastModified Time None Recorded Payers Encounter Date Sequence Insurance Name Policy Number Policy Jensen Covered Member ID Jensen Member ID Guarantor Name 10/03/2025 1 [employer] [facility] [place] [facility] Berenice Pierce [id number] Berenice Pierce Notes Date Note Type Note Provider Name and Address Organization Details Recorded Time 10/03/2025 text/html ROS as noted in the HPI We are seeing pt in OR today for recheck of chronic pain. She is scheduled to go to dialysis today and is discharging home with her son. Seen in ER 10/01/25 for low O2 sat, O2 up to 94% after O2 applied. Returned with orders for Doxy and Macrobid for Pneumonia and UTI. She has been scheduling her own appts in [place] and [facility]. She has been dc'd from therapy.She is requiring no penitentiary care. Khoa Verdugo, DO [address] [place] [address], [phone], [facility] 10/03/2025 10:13:17 OBGyn Episode No OBEpisode recorded.
--- OUTSIDE RECORDS SUMMARY | 2025-10-25 14:12 | XMS_ITS | Encounter Summary ---
Author Organization [facility] [employer], [facility] Address [address] [place] [address] Phone Care Team Providers Care Equipment Service Associate Name Role Phone Unavailable Primary Care Provider Unavailabl e Encounter Details Date Type Department Care Team (Late st Contact Info) Description 08/29/2025 TCM in Dialysis Clinic [facility] [employer], [facility] [address] [place] [address] Elizabeth Grissom NP [address] [place] [address] Social History Tobacco Use Types [...] 08/29/2025 The patient was seen for a agsi-es-dtoq visit as part of Transitional Care Management services. Attending [employer] Consultant: LISA NEVAREZ Dialysis Location: [facility] Schedule: Shift: 1 INTERACTIVE CONTACT This opcg-va-wzsd visit occurred within 2 business days of the patient?s discharge. HOSPITALIZATION SUMMARY Patient transitioned from: Hospital Patient transitioned to: Home Admit Date: 08/24/2025 Discharge Date: 08/27/2025 Discharged info reviewed: No outstanding diagnostic tests and treatments Reason for admission: Patient admitted to [facility] 08/24-08/27. Missed dialysis x 1 week due [...] 05/11/2026 Heparin Sodium (Porcine) 1,000 Units/mL Systemic 57907 units IVP Every Treatment 05/02/2025 - 05/01/2026 [...] 97.4*F Current Dialysis Vitals BP Sit: 158/48 AP/FLOWER CHENILLER: 187/168 Pulse: 57 CARE COORDINATION Post-discharge follow-up [...] Discussed bland foods. VISIT DIAGNOSES CPT Code 65243 - High complexity, seen within 7 days [...]
--- OUTSIDE RECORDS SUMMARY | 2025-10-25 14:12 | XMS_ITS | Clinical Summary ---
Author Organization [place] [facility], [facility] Address [address] [place] [address] Phone Care Team Providers Care Body Piercer Name Role Phone Unavailable Primary Care Provider Unavailabl e Encounters Date Type Department Care Team Description 10/22/2025 Orders Only [place] [facility] [address] [place] [address] Anirudh Su MD 10/20/2025 Orders Only [place] [facility] [address] [place] [address] Anirudh Su MD 10/13/2025 Orders Only [place] [facility] [address] [place] [address] Anirudh Su MD 10/13/2025 Treatment [facility] [address] [place] [address] Anirudh Su MD End stage renal disease; Dependence on renal dialysis 10/08/2025 Orders Only [place] [facility] [address] [place] [address] Anirudh Su MD 10/06/2025 Telephone [facility] [address] [place] [address] Anirudh Su MD 10/03/2025 Treatment [facility] [address] [place] [address] Elizabeth Gongora NP End stage renal disease; Dependence on renal dialysis 09/29/2025 Orders Only [facility], [facility] [address] [place] [address] Anirudh Su MD 09/26/[address] [place] [address], [facility] [address] [place] [address] Jo Ann Young NP End stage renal disease; Dependence on renal dialysis 09/22/2025 Orders Only [facility], [facility] [address] [place] [address] Anirudh Su MD 09/17/[address] [place] [address], [facility] [address] [place] [address] Anirudh Su MD End stage renal disease; Dependence on renal dialysis 09/15/2025 [facility], [facility] [address] [place] [address] Anirudh Su MD 09/01/2025 [facility], [facility] [address] [place] [address] Anirudh Su MD 08/29/[address] [place], [place] [address]rology [facility], [facility] [address] [place] [address] Elizabeth Gongora NP End stage renal disease; Dependence on renal dialysis 08/29/2025 [facility] in Dialysis Clinic [address] [place], [place] [address]rology [facility], [facility] [address] [place] [address] Elizabeth Gongora NP 08/13/[address] [place], [place] [address]rology [facility], [facility] [address] [place] [address] Anirudh Su MD End stage renal disease; Dependence on renal dialysis 08/11/2025 Orders Only [facility], [facility] [address] [place] [address] Anirudh Su MD 08/04/2025 Orders Only [facility], [facility] [address] [place] [address] Anirudh Su MD 08/01/2025 Orders Only [facility] [place] [facility], [facility] [address] [place] [address] Anirudh Su MD 08/01/2025 Treatment [facility], [facility] [address] [place] [address] Elizabeth Gongora NP End stage renal disease; Dependence on renal dialysis 07/28/2025 Orders Only [place] [facility], [facility] [address] [place] [address] Anirudh Su MD from Last [...] Post Dialysis 17 7 - 25 mg/dL [facility] 10/22/2025 10/22/2025 1:4 5 PM SKIVING MACHINE OPERATOR Narrative Resulting Agency Comment Performing Organization Information: Site ID: [place] Name: [facility] Address: [address] [place] [address] Director: Anisa Cabrera MD us Anirudh Su MD LAB BLOOD ORDERABLES Final Result [facility] [address] [place] [address] * (ABNORMAL) BUN (10/22/2025) Only the most recent of2 resultswithin the time period is included. BUN 52(H) 7 - 25 mg/dL [facility] 10/22/2025 10/22/2025 1:4 5 PM SKIVING MACHINE OPERATOR Narrative Resulting Agency Comment Performing Organization Information: Site ID: [id number] Name: Georg[facility] Mcpher[facility] Address: [address] [place] [address] Director: Anisa Cabrera MD Anirudh Su MD LAB BLOOD ORDERABLES Final Result Performing Organization Address City/[facility]/ZIP Co de Phone Number [facility] [address] * [facility] Lab Results (10/20/2025) Only the most recent of4 resultswithin the time period is included. eKt/V (Tattersall) 1.02 [facility] spKt/V (Daugirdas II) 1.18 [facility] WSTDKT/V 0.7 [facility] 10/20/2025 10/20/2025 [facility] Ordering Provider LAB BLOOD ORDERABLES Final Result Performing Organization Address [facility] Co de Phone Number [facility] Contact Performing lab Unknown, [place] * (ABNORMAL) Hemoglobin (10/20/2025) Only the most recent of3 resultswithin the time period is included. Pathologist [facility] Hemoglobin 10.5(L) 11.7 - 14.0 g/dL [facility] 10/20/2025 10/15/2025 5:5 6 AM SKIVING MACHINE OPERATOR Narrative Resulting Agency Comment Performing Organization Information: Site ID: [id number] Name: [facility] Mcpherson Address: [place] [address] Director: Anisa Cabrera MD Anirudh Su MD LAB BLOOD ORDERABLES Final Result Performing Organization Address City/[facility]/ZIP Co de Phone Number [facility] [place] [address] * HD [facility]ETICS (09/29/2025) Only the most recent of3 resultswithin the time period is included. % Urea Reduction 73 65 - 80 % [facility] 09/29/2025 10/01/2025 9:3 1 AM SKIVING MACHINE OPERATOR Narrative [facility]2025 Unless otherwise specified, test(s) performed at: [facility], [address] [place] [address] SAND MIXER MACHINE: Spencer Jerome M.D. For any questions, please call customer service at FREQUENCY:MONTHLY Resulting Agency Comment Specimen source: Plasma Anirudh Su MD LAB BLOOD ORDERABLES Final Result [facility] See order comments or contact performing lab Unknown, [place] * (ABNORMAL) SPECIAL CHEMISTRY (09/29/2025) Hemoglobin A1C 6.1(H) 4.8 - 5.9 % [facility] 09/29/2025 09/30/2025 9:5 7 AM SKIVING MACHINE OPERATOR Narrative Resulting Agency Comment Specimen source: Blood Result [facility] Anirudh Su MD LAB BLOOD BANK TEST O RDERABLES Final Result [facility] See order comments or contact performing lab Unknown, [place] * POST CHEMISTRY (09/29/2025) Only the most recent of4 resultswithin the time period is included. BUN Post Dialysis 16 6 - 19 mg/dL [facility] 09/29/2025 10/01/2025 9:3 1 AM SKIVING MACHINE OPERATOR Narrative [facility] - 10/01/2025 Unless otherwise specified, test(s) performed at: [facility], [address] [place], [place] [id number] SAND MIXER MACHINE: Spencer Jerome M.D. For any questions, please call customer service at FREQUENCY:MONTHLY Resulting Agency Comment Specimen source: Plasma Anirudh Su MD LAB BLOOD ORDERABLES Final Result [facility] See order comments or contact performing lab Unknown, [place] * TRACE ELEMENTS (09/29/2025) Pathologist [facility] Aluminum <5 0 - 10 mcg/L [facility] Comment: This test was developed and its performance characteristics determined by [facility]. It has not been cleared or approved by the FDA. The laboratory is regulated under CLIA as qualified to perform high complexity testing. This test is used for clinical purposes. It should not be regarded as investigational or for research. 09/29/2025 09/30/2025 9:4 5 AM SKIVING MACHINE OPERATOR Narrative [facility] - 09/30/2025 Unless otherwise specified, test(s) performed at: [facility], [address] [place] [address] SAND MIXER MACHINE: Spencer Jerome M.D. For any questions, please call customer service at FREQUENCY:MONTHLY Resulting Agency Comment Specimen source: Serum Anirudh Su MD LAB BLOOD ORDERABLES Final Result Performing Organization Address City/[facility]/ZIP Co de Phone Number [facility] See order comments or contact performing lab Unknown, [place] * (ABNORMAL) HEMATOLOGY (09/29/2025) Only the most recent of7 resultswithin the time period is included. Pathologist [facility] Neutrophils 80.8(H) 40.0 - 75.0 % [facility] [...] slide review. 09/29/2025 09/30/2025 9:5 7 AM SKIVING MACHINE OPERATOR Narrative [facility] - 09/30/2025 Unless otherwise specified, test(s) performed at: [facility], [address] [place] [address] SAND MIXER MACHINE: Spencer Jerome M.D. For any questions, please call customer service at FREQUENCY:MONTHLY Resulting Agency Comment Specimen source: Blood us Anirudh Su MD LAB BLOOD ORDERABLES Final Result [facility] See order comments or contact performing [...] [facility] 09/29/2025 10/01/2025 11: 04 AM SKIVING MACHINE OPERATOR Luis Angel [facility] - 10/01/2025 Unless otherwise specified, test(s) performed at: [facility], [address] [place] [address] SAND MIXER MACHINE: Spencer Jerome M.D. For any questions, please call customer service at FREQUENCY:MONTHLY Resulting Agency Comment Specimen source: Serum us Anirudh Su MD LAB BLOOD ORDERABLES Edited Result - Final [facility] See order comments or contact performing lab Unknown, [place] from Last [address] [place] [id number] [employer] [place]
--- OUTSIDE RECORDS SUMMARY | 2025-10-25 14:12 | XMS_ITS | Data Portability ---
Author Organization STEPHEN Lock [facility] Roberto Carlos Zapata [facility] Address [address] [place] [phone] Assessment Encounter Date Assessment Date Assessment LastModified [...] patient questions today. They express verbal understanding. [email or web address] Not available 09/21/2025 14:27:26 10/03/2025 10/03/2025 Pt discharging home with son after dialysis today. [email or web address] Not available 10/03/2025 10:12:54 Plan of Treatment Reminders Order Date Submit Date Provider Last Modified By Organization Details Last Modified Time Details Appointments None recorded. Lab None recorded. Referral None recorded. Procedures None recorded. Surgeries None recorded. Imaging None recorded. Medication Orders hydrocodone 10 mg-acetamin ophen 325 mg tablet 2024 025 dkiest [facility], [address] [facility], [place], [address], 11:12:23 Patient TargetsNo targets recorded. Patient InstructionsNo instructions recorded. Reason for Referral None Reported. Problems Name Problem SNOMED Code Status Onset Date Resolution Date Notes Provider Name and Address Organization Details Recorded Time Osteomyelitis 05400006 Active 2024 Maddy mckeon, [facility] 5 11:03:12 Localized infection of skin AND/OR subcutaneous tissue 050886253 Active 2024 Maddy mckeon, [facility] 5 11:03:47 Diabetic skin disorder Active 2024 Maddy Barahonae linda, [facility] 5 11:04:08 Type 2 diabetes mellitus 26210613 Active 2024 Maddy Bisi mckeon, [facility] 5 11:04:18 End-stage renal disease 16006010 Active 2024 Maddyluis eduardo [facility] 5 11:04:27 Dependence on renal dialysis 172045826 Active 2024 Maddyluis eduardo mckeon, [facility] 5 11:04:37 Acute respiratory failure 42126999 Active 2024 Maddyluis eduardo Barahonae [facility] 5 11:04:51 Obstructive sleep apnea syndrome 93932020 Active 2024 Maddyluis eduardo Barahonaevelio mckeon [facility] 5 11:05:03 Obesity 348042151 Active 2024 Maddy mckeon, [facility] 5 11:05:21 Diastolic heart failure 511866232 Active 2024 Maddyluis eduardo Barahonaevelio mckeon [facility] 5 11:05:33 Chronic ulcer of right foot Active [address] [facility] 5 11:06:04 Bacteremia 1928251 Active 2024 Maddyluis eduardo Mathews null, [facility] 11:06:19 Essential hypertension 54908049 Active 2024 Maddy Mathews null, [facility] 11:07:30 Mild major depression, single episode 21202755 Active 2024 Maddyluis eduardo Barahonae null, [facility] 11:06:38 Constipation 55854280 Active 2024 Maddy Mathews null, [facility] 11:06:53 Dyspnea 693088287 Active 2024 Maddy Mathews null, [facility] 11:07:06 Wheezing 69600000 Active 2024 Maddyluis eduardo Barahonae null, [facility] 11:07:17 Hypothyroidism 71230480 Active 2024 Maddy Mathews null, [facility] 11:07:46 Restless legs syndrome 46193941 Active 2024 Maddy Mathews null, [facility] 5 11:07:58 Pain 01726975 Active 2024 Maddy Mathews null, [facility] 5 11:08:10 Acute thoracic back pain 915064416 Active 2024 Khoa Verdugo [address], [address] [place] [address], L[facility] 5 15:01:26 Chronic pain 33830068 Active 2024 Khoa Verdugo DO [address] [place] [address], [phone], [facility], .Claudio 5 15:01:33 Problem Notes None recorded. Medical Equipment None Reported. Allergies Allergen ID Allergen Name Allergen Category Reaction Reaction Severity Criticality Documentation Date Start Date Code Code System Note Provider Name and Address Organization Details Recorded Time 30988 piperacil travon / tazobacta m medicatio n Not available Not available [facility] 10/03/2025 10641 RxNorm Not Available formerly [facility] [employer] - prod 5 04:39:48 25535 levofloxa nguyễn medicatio n Not available Not available [facility] 10/03/2025 00993 RxNorm Not Available formerly [facility] [employer] - prod 5 04:39:48 84529 diphenhyd ramine medicatio n Not available Not available [facility] 10/03/2025 3498 RxNorm Not Available joshua - [employer] - prod 5 04:39:48 01889 Non-stero idal anti-infl ammatory agent (substanc e) medicatio n Not available Not available [facility] 10/03/2025 55040 5008 SNOMED Not Available joshua - [employer] - prod 5 04:39:48 89610 sulfameth oxazole / trimethop rim medicatio n Not available Not available [facility] 10/03/2025 33931 RxNorm Not Available joshua - [employer] - prod 5 04:39:48 34182 bumetanid e medicatio n Not available Not available [facility] 10/03/2025 1808 RxNorm unrec ogniz ed react ion (text : Erupt ion (morp holog ic abnor malit y), code: [id number]) (from exter nal sourc e) Not Available joshua [employer] - prod 5 04:39:48 28841 Substance with sulfonami de structure and antibacte rial mechanism of action (substanc e) medicatio n Not available Not available Not available 10/03/20252024 13200 8003 SNOMED Not Available [employer] [employer] [facility] 04:41:11 49527 sulfameth oxazole medicatio n Not available Not available Not available 10/03/20252024 17853 RxNorm Not Available joshua [employer] - [facility] 5 04:41:54 35709 trimethop rim medicatio n Not available Not available Not available 10/03/20252024 24378 RxNorm Not Available joshua [employer] - [facility] 5 04:41:54 92205 ceftriaxo ne medicatio n Not available Not available Not available 10/03/20252024 2193 RxNorm Not Available joshua [employer] - [facility] 04:41:54 Medications Name Sig Start Date Stop [...] Not Available Not Available No t Available [facility] Caps 1 mg capsule Take 1 capsule [...] Address Organization Details Last Updated DateTime 5 885811. 24 g 44.1 kg/m2 162.56 cm 99 % 94 /min 20 /min 98.2 [degF] 106/68 mm[Hg] [facility] 5 11:02:01 Date Recorded Body height Body mass index (BMI) Body weight Oxygen saturation Heart rate Respiratory rate Body temperature Systolic And Diastolic Provider Name and Address Organization Details Last Updated DateTime 5 162.56 cm 45.4 kg/m2 390565. 79 g 98 % 50 /min 18 /min 98.2 [degF] 133/69 mm[Hg] [facility] 5 09:53:25 Date Recorded Body height Body mass index (BMI) Body weight Oxygen saturation Heart rate Respiratory rate Body temperature Systolic And Diastolic Provider Name and Address Organization Details Last Updated DateTime 5 162.56 cm 45.4 kg/m2 249642. 79 g 94 % 59 /min 20 /min 97.6 [degF] 99/76 mm[Hg] [facility] 5 08:35:29 Social History None recorded. Functional Status None recorded. Mental Status None recorded. Family History Nothing Reported. Medical History No medical history recorded. Gynecological HistoryNo gynecological history recorded. Obstetrics History GPAL:G 0 P 0 0 0 0 Immunizations Vaccine Type Date Status Note Provider Nam e and Address Organization Details Recorded Time Influenza, split virus, trivalent, preservative 4 completed Not Available [facility] 10/03/2025 08:28:38 Influenza, split virus, quadrivalent, PF 8 completed Not Available [facility] 10/03/2025 08:28:38 COVID-19, mRNA, LNP-S, PF, 30 mcg/0.3 mL dose 1 completed Not Available [facility] 10/03/2025 08:28:38 COVID-19, mRNA, LNP-S, PF, 30 mcg/0.3 mL dose 1 completed Not Available [facility] 10/03/2025 08:28:38 zoster recombinant 2 completed Not Available [facility] 10/03/2025 08:28:38 Influenza, split virus, trivalent, preservative 2 completed Not Available [facility] 10/03/2025 08:28:38 zoster recombinant 3 completed Not Available [facility] 10/03/2025 08:28:38 COVID-19, mRNA, LNP-S, PF, elsa-sucrose, 30 mcg/0.3 mL 4 completed Not Available [facility] 10/03/2025 08:28:38 Influenza, adjuvanted, trivalent, PF 4 completed Not Available [facility] 10/03/2025 08:28:38 Past Encounters Encounter ID Performer Location Encounter Start Date Encounter Closed Date Diagnosis/Indication Diagnosis SNOMED-CT Code Diagnosis ICD10 Code Diagnosis IMO Codes Diagnosis Note [id number] Khoa Verdugo DO [facility] [address] [place] [phone] 09/21/2025 10:33:09 10/21/2025 09:49:52 End-stage renal disease 72029462 N18.6 Z99.2 67858 09/21/25: [facility] Type 2 wan betes mellitus 01864491 E11.8 [id number] 09/21/25: Continue insulin and DM regimen, counseled on low sugar diet. A1c was 5.8 on 09/03/25. Osteomyelitis 89211329 M 86.9 [id number] 09/21/25: History of, ruled out on most recent hospital admission regarding right foot. Chronic ul cer of right foot 2403214234 3434547 L97.441 [id number] 09/21/25: [facility]. Continue daily wound dressings here with Hydofera blue, continue Cefepime 3 days per week after dialysis through 10/08/25. [id number] Khoa Verdugo DO [facility] [address] [place] [phone] 09/26/2025 09:49:26 10/21/2025 11:24:54 History of fall 510964371 Z91.81 [id number] End-stage renal disease 68160143 N18.6 19826 09/26/25: pt to attend dialysis today, will adjust pain medication to keep her comfortabl e while she is there. Pt agrees.09/21/25: Continue 3/wk dialysis in [facility], will monitor. Chronic pain 17933695 M5 4.59 09/26/25: Stop Hydrocodon e 7.5mg, start 10/325mg 1 PO q 4 hours PRN severe pain. Recheck next week, consider weaning Hydrocodon e. Acute thor acic back pain 801036608 M54.6 [id number] 09/26/25: Stop Hydrocodon e 7.5mg, start 10/325mg 1 PO q 4 hours PRN severe pain. Recheck next week, consider weaning Hydrocodon e. [id number] Khoa Verdugo DO [facility] ([facility]) [address] [place] [phone] 10/03/2025 08:28:30 10/07/2025 10:58:10 End-stage renal disease 98905536 N18.6 [id number] 09/26/25: pt to attend dialysis today, will adjust pain medication to keep her comfortabl e while she is there. Pt agrees.09/21/25: Continue 3/wk dialysis in [facility], will monitor. Chronic pain 18260930 M5 4.59 09/26/25: Stop Hydrocodon e 7.5mg, start 10/325mg 1 PO q 4 hours PRN severe pain. Recheck next week, consider weaning Hydrocodon e. Pneumonia 565086442 J18. 9 0894236350 Continue Doxy. Acute urin ev tract infection 672598817 N39.0 638918 Continue Macrobid. Health Concerns Section Related Observation LastModified by Organization Detai ls LastModified Time None Recorded Concern Status LastModified by Organization Details LastModified Time None Recorded Advance Directives Directive None Recorded Payers Insurance Date Sequence Insurance Name Policy Number Policy Jensen Covered Member ID Jensen Member ID Guarantor Name 10/21/2025 1 [facility] (MEDICARE REPLACEMENT/A DVANTAGE - PPO) [id number] Berenice Pierce [id number] Berenice Pierce 10/21/2025 1 [facility] (EPO) Berenice Pierce [id number] Berenice Pierce Notes Date Note Type Note Provider Name and Address Organization Details Recorded Time 09/21/2025 text/html ROS as noted in the HPI We are evaluating pt for new admission to [place] today, admitted 09/12/25. Admitted to [facility] 09/05-.Pmhx DM II, DM foot infections, ESRD on dialysis, TARA, HTN, COPD.Admitted to [facility] for concerns for severe right foot infection. Underwent right foot excisional debridement, cx showed pseudomonas, no osteomyelitis, Rx Cefepime 2g IV Mon/Mon/ Mon after dialysis. Hospitalization complicated by acute/ chronic resp failure from COPD. Dc'd on 2L n/c supplement O2. Concerns for Pneumonia. She received steroids inpt. Pt refusing dialysis in [place] ( won't let PICC line be placed, doesn't want poked anymore), goes to dialysis clinic Mon/ Mon/ Mon, receiving abx there.She is refusing Wound Care here, wanting to go [facility], orders have been written per Dr. [...] with Hydrofera Blue to right foot per [place]. Khoa Verdugo, [address] [place] [address], [phone], [facility] 10/21/2025 08:19:23 09/26/2025 text/html ROS as noted in the HPI We are seeing pt in [place] today after fall last night. She fell [...] going to the clinic. Khoa Verdugo DO [address] [place] [address], [phone], [facility], [facility]. 10/20/2025 15:01:40 10/03/2025 text/html ROS as noted in the HPI We are seeing pt in [place] today for recheck of chronic pain. She is scheduled to go to dialysis today and is discharging home with her son. Seen in ER 10/01/25 for low O2 sat, O2 up to 94% after O2 applied. Returned with orders for Doxy and Macrobid for Pneumonia and UTI. She has been scheduling her own appts in [place] and [facility]. [place]. She has been dc'd from therapy.She is requiring no assisted care. Khoa Verdugo DO [address] [place] [address], [phone], [facility] 10/03/2025 10:13:17 OBGyn Episode No OBEpisode recorded.
--- OUTSIDE RECORDS SUMMARY | 2025-10-25 14:12 | XMS_ITS | Encounter Summary ---
Author Organization [facility] Address [address] [place] [address] Phone Care Team Providers Care Mmd Unit Teacher Name Role Phone Unavailable Primary Care Provider Unavailabl e Encounter Details Date Type Department Care Team (Late st Contact Info) Description 10/20/2025 Orders Only [facility] [address] [place] [address] Anirudh Su MD [address] [place] [address] Social History Tobacco Use Types [...] Center WSTDKT/V 0.7 Knowledge Center 10/20/2025 10/20/2025 [facility] Ordering Provider LAB BLOOD ORDERABLES Final Result [facility] Knowledge Center Contact Performing lab Unknown, [place] * (ABNORMAL) Hemoglobin (10/20/2025) Hemoglobin 10.5(L) 11.7 - 14.0 g/dL [facility] 10/20/2025 10/15/2025 5:5 6 AM AIRCRAFT ORDNANCE TECHNICIAN Narrative Resulting Agency Comment Performing Organization Information: Site ID: [id number] Name: [facility] [place] Address: [address] [facility] [place] [address] Director: Anisa Cabrera MD Anirudh Su MD LAB BLOOD ORDERABLES Final Result Performing Organization Address City/[facility] Co de Phone Number [facility] [address] [facility] [place] [address] * (ABNORMAL) Post Dialysis BUN (10/20/2025) BUN Post Dialysis 33(H) 7 - 25 mg/dL [facility] 10/20/2025 10/15/2025 5:5 6 AM AIRCRAFT ORDNANCE TECHNICIAN Narrative Resulting Agency Comment Performing Organization Information: Site ID: [id number] Name: [facility] Address: [address] [facility] [place] [address] Director: Anisa Cabrera MD Anirudh Su MD LAB BLOOD ORDERABLES Final Result [facility] [address] [place] [address] * (ABNORMAL) BUN (10/20/2025) BUN 92(H) 7 - 25 mg/dL [facility] 10/20/2025 10/15/2025 5:5 6 AM AIRCRAFT ORDNANCE TECHNICIAN Narrative Resulting Agency Comment Performing Organization Information: Site ID: [id number] Name: [facility] Address: [address] [place] [address] Director: Anisa Cabrera MD us Anirudh Su MD LAB BLOOD ORDERABLES Final Result [facility] [address] [place] [address] documented in this encounter Visit Diagnoses Not on filedocumented in this encounter
--- NOTE | 2025-10-25 21:21 | PC.NURSE ---
pt discharged with education packet. discussed home med list and CHF management. pt verbalized understanding and spoke about her routine at home. verbalized understanding to seek medical attention especially if SOB becomes worse
== END 2025-10-25 20:00 | disposition home or self-care (01) ==
LOC: ER 15:53 → MEDSURG 17:09
PROVIDERS: Nurse Practitioner Gerontology; Admitting Provider Internal Medicine; Emergency Provider Physician Assistant; PCP Nurse Practitioner Family; Visit Provider Family Medicine
DX: R60.9 Edema, unspecified (principal); E11.22 Type 2 diabetes mellitus with diabetic chronic kidney disease; I13.2 Hypertensive heart and chronic kidney disease with heart failure and with stage 5 chronic kidney disease, or end stage renal disease; N18.6 End stage renal disease; I50.9 Heart failure, unspecified; Z99.2 Dependence on renal dialysis; Z79.4 Long term (current) use of insulin; Z79.01 Long term (current) use of anticoagulants; Z79.891 Long term (current) use of opiate analgesic; I48.91 Unspecified atrial fibrillation; J44.9 Chronic obstructive pulmonary disease, unspecified; G47.33 Obstructive sleep apnea (adult) (pediatric); F17.200 Nicotine dependence, unspecified, uncomplicated
CPT/HCPCS: 36415; 36416; 71045; 80053; 82962; 83735; 83880; 84100; 84145; 84484; 85025; 87637; 90935; 93005; 94640; 96372; 96374; 99285; G0378; J1644; J1815; J1938; J7626; J9999; P9047; Q3014

== ENCOUNTER 2025-10-29 11:37 | Emergency (ER) | payer MEDICARE, MEDICAID, SELFPAY ==
[2025-10-29 11:44] VITALS: BP 123/69; PULSE 54; RESP 15; TEMP 36.3; O2SAT 84; BMI 45.0
--- NOTE | 2025-10-29 11:44 | ECG_ITS ---
[facility]: 2025-[facility]29 Pat Name: Berenice Pierce Department: Room: Gender: Female City Planning Engineer: : [id number] Requested By: Benny Iverson Order Number: [id number] Pasquale MD: Christian Contreras M.D. Measurements Intervals [place] Rate: 54 P: 40 LA: 187 QRS: 36 QRSD: 93 T: 41 QT: 502 QTc: 478 Interpretive Statements SINUS BRADYCARDIA LOW QRS VOLTAGE IN PRECORDIAL LEADS [QRS DEFLECTION < 1.0 mV IN CHEST LEADS] POSSIBLE ANTERIOR MYOCARDIAL INFARCTION , PROBABLY OLD [30 ms Q WAVE IN V3/V4, OR R < 0.2 mV IN V4] Compared to ECG 10/24/2025 15:24:14 Low QRS voltage now present Sinus rhythm no longer present Myocardial infarct finding still present Electronically Signed On 10-30-2025 17:29:30 VP CUSTOMER DEVELOPMENT by Christian Contreras M.D. [email or web address]
--- NOTE | 2025-10-29 11:44 | XR_ITS ---
WS: [id number] XR chest 1V portable [id number] REASON FOR EXAM: sob FINDINGS: Chest is unchanged compared to the previous examination of 10/24/2025. Left IJ dialysis catheter remains in position with the tip of the catheter at the junction of the innominate vein and superior vena cava. Moderate tortuosity and ectasia of the thoracic aorta. Mild cardiomegaly with moderate central pulmonary venous congestion. Minimal residual reticular interstitial lung opacities and peribronchial cuffing. Minimal fluid in the minor fissure. XR/XR chest 1V portable [id number] IMPRESSION: Stable abnormal chest as above.
[2025-10-29 11:59] VITALS: O2SAT 96
--- NOTE | 2025-10-29 11:59 | PC.NURSE ---
PT PLACED ON 6L IN ROOM. PT RECOVERED BACK TO 98%. PT PLACED BACK ON 4L. PT OXYGEN SATURATION 96% ON 4L.
[2025-10-29 12:17] LABS: ABG PCO2 51.0 mmHg (35-45); ABG PH Result 7.35 (7.35-7.45); Arterial Blood Gas Hematocrit 30.1 % (37-47); Blood Gas Allen Test Pos; Blood Gas LPM 3.5 %; Blood Gas Operator Identificat WALCI; Blood Gas Sample Site Radial, right; Blood Gas Sample Type Arterial; Carboxyhemoglobin 1.7 %THgb (0.4-20.1); HCO3 ABG 28.2 mmol/L (22-26); Methemoglobin 0.3 % (0.4-1.5); PO2 ABG 113.0 mmHg (80.0-100.0)
[2025-10-29 12:24] LABS: Hematocrit 31.9 % (36-47); Hemoglobin 9.70 g/dL (11.27-16.99); Mean Corpuscular HGB Conc 30.4 g/dL (30-55); Mean Corpuscular Hemoglobin 28.0 pg (27-33); Mean Corpuscular Volume 92.2 fl (85-98); Nucleated Red Blood Cells % 0 %; Platelet Count 116 10^3/cmm (157-399); Red Blood Count 3.46 10^6/uL (3.85-5.65); White Blood Count 7.16 10^3/uL (3.29-11.43)
[2025-10-29 12:37] VITALS: BP 159/55; PULSE 55
[2025-10-29 12:51] VITALS: PULSE 55; RESP 19
[2025-10-29 13:02] VITALS: BP 182/74; PULSE 53
--- NOTE | 2025-10-29 13:03 | ED_ITS ---
HPI - SOB/Dyspnea 2 General: Chief Complaint: Shortness of Breath/Dyspnea Stated Complaint: trouble breathing, confussion Time Seen by Provider: 10/29/25 11:53 History of Present Illness: HPI Narrative: 65-year-old female presents to the [facility] ency room with complaint of an episode of transient shortness of breath. Patient has a history of end-stage renal disease she currently is getting dialysis via a tunneled dialysis catheter. She has been on dialysis for several years she has had a left graft that had outlived dysfunctional life then she had a right arm fistula placed that never matured well enough to be useful evidently now she has been using tunneled dialysis catheters. She previously had 1 in the right subclavian now she is on the left subclavian. She was and route to dialysis today became lightheaded dizzy weak states that she was cyanotic her oxygen sats had decreased. She arrived here she 88% on 3 L they increased her to 4 L she is now satting at 100% at 4 L. She denies any chest pain denies any abdominal pain no fever sweats or chills Associated symptoms: Deny abdominal pain, chest pain or fever(s) Related Data Home Medications ?Medication ?Instructions ?Recorded ?Confirmed albuterol sulfate 2.5 mg/3 mL 2.5 mg inhalation Q6H WA N 12/25/24 10/29/25 (0.083 %) solution for nebulization Shortness Of Breat h calcitriol 0.25 mcg capsule 0.25 mcg PO DAILY 12/25/24 10/29/25 hydrocodone 7.5 mg-acetaminophen 1 - 2 tab PO .Q4-6H P RN Pain 12/25/24 10/29/25 325 mg tablet levothyroxine 112 mcg tablet 112 mcg PO DAILY 12/25/24 10/29/25 metoprolol tartrate 25 mg tablet 25 mg PO BID 12/25/24 10/29/25 ropinirole 0.25 mg tablet 0.25 mg PO TID 12/25/2410/20 vitamin B complex and vitamin C 1 cap PO DAILY 2 5 10/29/25 no.20-folic acid 1 mg capsule ([place] Caps) hydralazine 100 mg tablet 100 mg PO TID 08/25/2510/29 tizanidine 4 mg tablet 4 mg PO Q8H PRN Spasms 08/2510/29/25 torsemide 100 mg tablet 100 mg PO DAILY 08/25/2509/13 albuterol sulfate 90 mcg/actuation 2 puff inhalation Q 6H PRN 09/04/25 10/29/25 aerosol inhaler Shortness Of Breath Or Wheez ing budesonide 0.5 mg/2 mL suspension 0.5 mg inhalation BI D 10/24/25 10/29/25 for nebulization calcitriol 0.5 mcg capsule 0.5 mcg PO DAILY 10/24/25 1 12/30/24 ropinirole 0.5 mg tablet 0.5 mg PO TID PRN restless l egs 10/24/25 10/29/25 Previous Rx's ?Medication ?Instructions ?Recorded amiodarone 200 mg tablet (Pacerone) 200 mg PO DAILY #3 0 tabs 08/27/25 apixaban 5 mg tablet (Eliquis) 5 mg PO BID@0900,2100 # 60 tabs 08/27/25 sevelamer carbonate 800 mg tablet 800 mg PO TID #90 ta bs 08/27/25 insulin glargine U-300 conc 300 5 unit (0.0167 mL) SUB CUT BEDTIME 09/12/25 unit/mL (3 mL) subcutaneous pen #1 mL (Toujeo Max U-300 SoloStar) insulin lispro 100 unit/mL See Rx Instructions .Route 09/12/25 subcutaneous solution (Humalog .COMPLEX #10 mL U-100 Insulin) Allergies Allergy/AdvReac Type Severity Reaction Status Date / Time bumetanide Allergy Unknown Unknown Verified 10/24/25 12:50 sulfamethoxazole (From Allergy Unknown Unknown Verified 10/24/25 12:50 Bactrim) trimethoprim (From Bactrim) Allergy Unknown Unknown Verified 10/24/25 12:50 ceftriaxone Allergy ALGY-Difficulty Verified 10/24/25 12:50 Breathing levofloxacin (From Levaquin) Allergy ADR-Itching Verified 10/24/25 12:50 NSAIDS (Non-Steroidal Allergy Unknown Verified 10/24/25 12:50 Anti-Inflamma Review of Systems 2 Const: Denies: fever(s) or chills Card: Denies: chest pain Resp: Reports: dyspnea GI: Denies: abdominal pain : Denies: dysuria, urinary frequency or urinary urgency Musc: Denies: neck pain or back pain Skin/Breast: Denies: rash PFSH ED 2 PFSH: Medical History Missed dialysis Chronic osteomyelitis Infection of hemodialysis catheter ESRD on dialysis Chronic ulcer of right foot Poor intravenous access Elevated troponin Respiratory syncytial virus Uremia Headache retirement (current) use of opiate analgesic Pain management contract signed Lumbar stenosis with neurogenic claudication Seizure PRES (posterior reversible encephalopathy syndrome) RLS (restless legs syndrome) TARA (obstructive sleep apnea) Chronic antibiotic suppression Staphylococcus epidermidis bacteremia Diastolic heart failure H/O staphylococcal septicemia Hyperglycemia Cellulitis Thyroid disease Chronic back pain HTN (hypertension) Obesity Surgical History 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 H/O: hysterectomy Arteriovenous fistula History of tonsillectomy History of cholecystectomy History of back surgery History of appendectomy History of adenoidectomy Family History Other Cancer Social History Smoking and tobacco/nicotine status: current every day tobacco/nicotine user Alcohol intake: never Substance/Drug Use: never Lives independently: Yes Household members: spouse Housing: House Marital status: Physical Exam 2 Const: GENERAL APPEARANCE: cooperative ORIENTATION/CONSCIOUSNESS: Yes awake, Yes oriented to person, Yes oriented to place and Yes oriented to time HENMT: COMMON NORMALS: normocephalic, atraumatic and hearing grossly normal bilaterally HEAD & SCALP: normocephalic and atraumatic Resp: COMMON NORMALS: normal respiratory effort, No retractions and No use of accessory muscles AUSCULTATION: diminished lung sounds Cardio: COMMON NORMALS: regular rate, regular rhythm and No murmurs present (Cardio) RATE: regular rate RHYTHM: regular rhythm GI: COMMON NORMALS: Soft to palpation and No hepatosplenomegaly present A USCULTATION: Yes normoactive bowel sounds PALPATION: Yes Soft to palpation, No Tenderness to palpation present (GI), No Guarding due to palpation present (GI) and Yes No hepatosplenomegaly present Extremity: GENERAL: Yes edema OTHER: Patient is diabetic foot ulcer reported on her right foot with a previous graft. She refuses to allow any examination Neuro: SENSORIUM/ORIENTATION: Yes oriented to person, Yes oriented to place and Yes oriented to time Skin: COMMON NORMALS: no rashes or lesions noted GENERAL SKIN EXAM: no rashes or lesions noted Course 2 Vital Signs: Vital signs: Vital Signs Temperature 97.4 F L 10/29/25 11:44 Pulse Rate 53 L 10/29/25 13:02 Respiratory Rate 19 H 10/29/25 12:51 Blood Pressure 182/74 10/29/25 13:02 Pulse Oximetry 96 10/29/25 11:59 Oxygen Delivery Me thod Nasal Cannula 10/29/25 11:59 Oxygen Flow Rate 4 10/29/25 11:59 MDM - SOB/Dyspnea Medical Decision Making Medical decision making Social determinants: Poor understanding of health conditions I reviewed the patient's medical record. I reviewed the patient's current home meds. Alternate historians: Daughter Differential diagnosis: Congestive heart failure pulmonary embolism pneumonia Lab Review: Labs reviewed patient does have anemia which appears to be chronic with a hemoglobin of 9.7. Platelets 116. Electrolytes are normal creatinine is 4.9 with a BUN of 33 BNP 21,000 176. Imaging:Chest x-ray shows increased vascular markings suggestive of congestive heart failure Assessment of risk Level of risk: High Hospitalization considerations: Admit for just exacerbation of congestive heart failure she will also need dialysis. Reexamination: Patient refuses to allow examination of her foot does states she has a diabetic ulcer Assessment and plan: Patient presents emergency room with complaints of sudden transient hypoxia and cyanosis. She is resolved now she is typically on 3 L she is requiring 4 L she satting 100%. She did not have any chest pain she did not receive dialysis today. She does appear to be fluid overloaded has significant edema of her lower extremities. Also concerned she may have a PE given her sudden onset of symptoms. She initially refuses CTA of the chest because she states she was told never to have dye because of her kidneys discussed with her that now that she is on dialysis is effectively is no longer an issue since her kidneys are impractical monitors not functional. She does still make a little bit of urine but requires dialysis for the last 10 years. She also is refusing to allow examination of her foot. She states he cannot be examined excepted by her wound care doctor. I did discuss with her the importance of documenting the wound and making sure there is not an infection there she still refuses absolutely refuses to even take off the sock for visual inspection. CTA is still pending. Will admit will need dialysis discussed with hospitalist orders written for CSU Went to the patient to Discussed examination of the foot. She has previously had staph septicemia. We need to be able to document the condition of the wound at the time of discharge she is adamant against it became very angry. I tried to explain to her why this is important given her underlying history and past medical history. She wishes to leave A. She is welcome to return anytime in the future. I did discuss with her prior to leaving the risk she is due for dialysis today she has signs of fluid overload has already had an episode of hypoxia. She expresses understanding of this. Lab Data 10/29/25 12:19 10/29/25 12:19 Labs/Radiology: Radiology Impressions Chest X-Ray 10/29/25 11:44 IMPRESSION: Stable abnormal chest as above. Laboratory Results WBC 7.16 10^3/uL (3.29-11.43) 10/29/25 12:19 RBC 3.46 10^6/uL (3.85-5.65) L 10/29/25 12:19 Hgb 9.70 g/dL (11.27-16.99) L 10/29/25 12:19 Hct 31.9 % (36-47) L 10/29/25 12:19 MCV 92.2 fl (85-98) 10/29/25 12:19 MCH 28.0 pg (27-33) 10/29/25 12:19 MCHC 30.4 g/dL (30-55) 10/29/25 12:19 RDW 17.0 % (12.1-15.1) H 10/29/25 12:19 Plt Count 116 10^3/cmm (157-399) L 10/29/25 12:19 MPV 10.0 fL (7.4-10.4) 10/29/25 12:19 Neut % (Auto) 82.8 % 10/29/25 12:19 Lymph % (Auto) 9.9 % 10/29/25 12:19 [place] % (Auto) 4.9 % 10/29/25 12:19 Eos % (Auto) 1.7 % 10/29/25 12:19 Baso % (Auto) 0.6 % 10/29/25 12:19 Neut # (Auto) 5.93 10^3/uL (1.8-7.7) 10/29/25 12:19 Lymph # (Auto) 0.7 10^3/uL (0.8-4.8) L 10/29/25 12:19 [place] # (Auto) 0.4 10^3/uL (0.2-0.9) 10/29/25 12:19 Eos # (Auto) 0.1 10^3/uL (0.0-0.8) 10/29/25 12:19 Baso # (Auto) 0.0 10^3/uL (0.0-0.1) 10/29/25 12:19 Nucleated RBC % (auto) 0 % 10/29/25 12: Nucleated RBCs # 0.0 /100WBC 10/29/25 12:19 Specimen Type Arterial 10/29/25 12:06 Sample Site Radial, right 10/29/25 12:06 ABG pH 7.35 (7.35-7.45) 10/29/25 12:06 ABG pCO2 51.0 mmHg (35-45) H 10/29/25 12:06 ABG pO2 113.0 mmHg (80.0-100.0) H 10/29/25 12:06 ABG HCO3 28.2 mmol/L (22-26) H 10/29/25 12:06 ABG Base Excess 2.1 mmol/L (-2.0-2.0) H 10/29/25 12:06 Seun Test Pos 10/29/25 12:06 Hematocrit 30.1 % (37-47) L 10/29/25 12:06 Hgb O2 Saturation 97.2 % (95-100) 10/29/25 12:06 Carboxyhemoglobin 1.7 %THgb (0.4-20.1) 10/29/25 12:06 Methemoglobin 0.3 % (0.4-1.5) L 10/29/25 12:06 Total Hemoglobin 9.8 g/dL (12-16) L 10/29/25 12:06 O2 Delivery Device Nc 10/29/25 12:06 O2 Liters/Min 3.5 % 10/29/25 12:06 House Worker General ID [place] 10/29/25 12:06 Sodium 138 mmol/L (136-145) 10/29/25 12:19 Potassium 4.7 mmol/L (3.5-5.1) 10/29/25 12:19 Chloride 100 mmol/L (98-107) 10/29/25 12:19 Carbon Dioxide 27 mmol/L (22-29) 10/29/25 12:19 Anion Gap 15.7 (5-19) 10/29/25 12:19 BUN 33 mg/dL (8-23) H 10/29/25 12:19 Creatinine 4.9 mg/dL (0.5-0.9) H 10/29/25 12:19 GFR Calculation 8.8 mL/min (90-130) L 10/29/25 12:19 Glucose 206 mg/dL (65-115) H 10/29/25 12:19 Calculated Osmolality 299 mOsm/kg (285-295) H 10/29/25 12:19 Lactic Acid 1.2 mmol/L (0.5-2.2) 10/29/25 12:19 Calcium 8.3 mg/dL (8.5-10.5) L 10/29/25 12:19 Total Bilirubin 0.3 mg/dL (0.15-1.2) 10/29/25 12:19 AST 16 U/L (0-32) 10/29/25 12:19 ALT 16 U/L (0-33) 10/29/25 12:19 Alkaline Phosphatase 161 U/L (35-105) H 10/29/25 12:19 NT-Pro-B Natriuret Pep 32983 pg/mL (0-125) H 10/29/25 12:19 Total Protein 6.8 g/dL (6.6-8.7) 10/29/25 12:19 Albumin 3.9 g/dL (3.5-5.2) 10/29/25 12:19 Globulin 2.9 g/dL (1.3-4.6) 10/29/25 12:19 Influenza A (PCR) Negative (Negative) 10/29/25 13:00 Influenza Type B (PCR) Negative (Negative) 10/29/25 13:00 RSV (PCR) Negative (Negative) 10/29/25 13:00 SARS-CoV-2 (PCR) Negative (Negative) 10/29/25 13:00 All radiology interpretation(s) finalized by discharge EKG Data EKG 1: I personally reviewed and interpreted this EKG as follows: Interpretation: EKG 1210 2025-10-21 sinus bradycardia rate 54 WA interval 187 QTc [address] changes noted compared to EKG 10/24/2025 no significant change Discharge Plan Discharge Patient Disposition: Left Against Medical Advice Clinical Impression: Congestive heart failure, End stage renal disease on dialysis, Type 2 diabetes mellitus, Diabetic foot ulcer, Noncompliance Condition: Stable Prescriptions: No Action albuterol sulfate 2.5 mg /3 mL (0.083 %) solution for nebulization 2.5 mg inhalation Q6H PRN (Reason: Shortness Of Breath) ropinirole 0.25 mg tablet 0.25 mg PO TID hydrocodone-acetaminophen 7.5-325 mg tablet 1 - 2 tab PO .Q4-6H PRN (Reason: Pain) [place] Caps 1 mg capsule 1 cap PO DAILY calcitriol 0.25 mcg capsule 0.25 mcg PO DAILY Rx Instructions: take with 0.5mcg to=0.75mcg total levothyroxine 112 mcg tablet 112 mcg PO DAILY metoprolol tartrate 25 mg tablet 25 mg PO BID tizanidine 4 mg tablet 4 mg PO Q8H PRN (Reason: Spasms) torsemide 100 mg tablet 100 mg PO DAILY hydralazine 100 mg tablet 100 mg PO TID amiodarone [Pacerone] 200 mg Tablet 200 mg PO DAILY Qty: 30 0RF sevelamer carbonate 800 mg Tablet 800 mg PO TID Qty: 90 0RF Eliquis 5 mg Tablet 5 mg PO BID@0900,2100 Qty: 60 0RF albuterol sulfate 90 mcg/actuation HFA aerosol inhaler 2 puff INHALATION Q6H PRN (Reason: Shortness Of Breath Or Wheezing) insulin lispro [Humalog U-100 Insulin] 100 unit/mL Solution See Rx Instructions .ROUTE .COMPLEX Qty: 10 0RF Rx Instructions: Inject, subcut, 3 times daily, after meals, based on low-dose sliding scale insulin glargine U-300 conc [Toujeo Max U-300 SoloStar] 300 unit/mL (3 mL) insulin pen 5 unit SUBCUT BEDTIME Qty: 1 0RF calcitriol 0.5 mcg Capsule 0.5 mcg PO DAILY Rx Instructions: along with 0.25mcg to=0.75mcg total ropinirole 0.5 mg Tablet 0.5 mg PO TID PRN (Reason: restless legs) budesonide 0.5 mg/2 mL suspension for nebulization 0.5 mg inhalation BID Rx Instructions: Order states for RT use only Referrals: Radha Sherwood NP [Primary Care Provider, Unknown] Patient Instructions: Opioid Safety, Pain Management, Patient Portal & [facility] Instructions Print Language: Danish Coding Level of Care Code ED Pattern Filer for Aimee Gnozalez
[2025-10-29 13:04] LABS: Alanine Aminotransferase 16 U/L (0-33); Albumin Level 3.9 g/dL (3.5-5.2); Alkaline Phosphatase 161 U/L (35-105); Anion Gap 15.7 (5-19); Aspartate Amino Transferase 16 U/L (0-32); Blood Urea Nitrogen 33 mg/dL (8-23); Calcium 8.3 mg/dL (8.5-10.5); Carbon Dioxide 27 mmol/L (22-29); Chloride 100 mmol/L (98-107); Globulin 2.9 g/dL (1.3-4.6); Glucose 206 mg/dL (65-115); NT Pro B Type Natriuretic Pept 21176 pg/mL (0-125); Osmolality Calculated 299 mOsm/kg (285-295); Potassium 4.7 mmol/L (3.5-5.1); Sodium 138 mmol/L (136-145); Total Protein 6.8 g/dL (6.6-8.7)
--- NOTE | 2025-10-29 13:15 | PC.NURSE ---
pt refused angio d/t her kidney doctor advised pt to not have contrast
[2025-10-29 13:50] LABS: Respiratory Syncytial Virus Ce NEGATIVE (Negative); SARS-CoV-2 PCR NEGATIVE (Negative)
[2025-10-29 15:38] LABS: Lactic Sepsis W/Reflex 1.2 mmol/L (0.5-2.2)
== END 2025-10-29 14:30 | disposition left against medical advice (07) ==
PROVIDERS: Emergency Medicine; Emergency Provider Family Medicine; PCP Nurse Practitioner Family
DX: E11.22 Type 2 diabetes mellitus with diabetic chronic kidney disease (principal); E11.621 Type 2 diabetes mellitus with foot ulcer; L97.519 Non-pressure chronic ulcer of other part of right foot with unspecified severity; I13.2 Hypertensive heart and chronic kidney disease with heart failure and with stage 5 chronic kidney disease, or end stage renal disease; I50.30 Unspecified diastolic (congestive) heart failure; N18.6 End stage renal disease; Z99.2 Dependence on renal dialysis; Z72.0 Tobacco use; Z11.52 Encounter for screening for COVID-19; Z91.199 Patient's noncompliance with other medical treatment and regimen due to unspecified reason; Z79.01 Long term (current) use of anticoagulants; Z79.4 Long term (current) use of insulin
CPT/HCPCS: 36415; 36600; 71045; 80053; 82805; 83605; 83880; 85025; 87637; 93005; 99285